=== PATIENT | male | born 1940 | race Caucasian/White ===

== ENCOUNTER 2017-01-06 17:58 | Emergency (ER) | payer MEDICARE, MEDICAID ==
[~2017-01-06] VITALS: Ht 170.2 cm; Wt 119.1 kg
[~2017-01-06 17:58] MED LIST: AZOP0.2S OU; BRIN1OPH OU; CENTTAB PO; CIPR-249 PO; CLOP75TA2 PO; DRIS50002 PO; ECOT81TA5 PO; ESOM1CAP5 PO; FENO43CA PO; HYDR12.55 PO; HYDR25TAB PO; KLOR1TAB77 PO; LOSA50TA20 PO; METF500T13 PO; NEXI40CA PO; OXYC15TA76 PO; SIMV80TA PO; TENO1TAB4 PO; TRAV04OPD OU; TRIC1TAB PO; VALI5TAB PO; ZOFR4TAB3 PO
[2017-01-06] MEDS ORDERED: ASPI81TA85 PO (18:13)
[2017-01-06 18:38] LABS: BASO % 0.3 % (0.0-1.0); EOS # 0.2 10^3/uL (0.0-0.50); EOS % 2.2 % (0.0-3.0); IMMATURE GRANULOCYTE % 0.4 % (0-0); LYMPH # 1.1 10^3/uL (1.5-4.5); LYMPH % 15.6 % (24.0-44.0); MEAN CORPUSCULAR HEMOGLOBIN 29.7 pg (27.0-33.0); MEAN CORPUSCULAR HGB CONC 35.2 g/dl (32.0-36.5); MEAN CORPUSCULAR VOLUME 84.3 fl (80.0-96.0); MONO # 0.6 10^3/uL (0.0-0.8); MONO % 9.5 % (0.0-5.0); NEUTROPHILS # 4.9 10^3/uL (1.8-7.7); PLATELET COUNT, AUTOMATED 173 10^3/uL (150-450); RED CELL DISTRIBUTION WIDTH 13.5 % (11.5-14.5); WHITE BLOOD COUNT 6.7 10^3/uL (4.0-10.0)
[2017-01-06 18:50] LABS: INR 1.08
[2017-01-06 19:00] LABS: ALBUMIN 3.9 GM/DL (3.2-5.2); ALKALINE PHOSPHATASE 49 U/L (45-117); ALT/SGPT 35 U/L (12-78); ANION GAP 9 MEQ/L (8-16); AST/SGOT 22 U/L (7-37); BILIRUBIN,DIRECT 0.2 MG/DL (0.0-0.2); BILIRUBIN,TOTAL 0.5 MG/DL (0.2-1.0); BLOOD UREA NITROGEN 14 MG/DL (7-18); CALCIUM LEVEL 8.8 MG/DL (8.8-10.2); CARBON DIOXIDE LEVEL 25 MEQ/L (21-32); CHLORIDE LEVEL 105 MEQ/L (98-107); CREATININE FOR GFR 1.36 MG/DL (0.70-1.30); GLOMERULAR FILTRATION RATE 54.2 (>42); GLUCOSE, FASTING 117 MG/DL (83-110); POTASSIUM SERUM 3.5 MEQ/L (3.5-5.1); SODIUM LEVEL 139 MEQ/L (136-145); TOTAL PROTEIN 6.9 GM/DL (6.4-8.2)
--- NOTE | 2017-01-06 19:12 | REP ---
REASON FOR EXAM: Chest pain. COMPARISON: 12/13/2016 The technique utilized in obtaining the radiograph has magnified the cardiac silhouette and accentuated the interstitial markings. The superior mediastinal structures are midline. The cardiac silhouette is unremarkable in size, shape, and position. The diaphragmatic surfaces of the lungs are regular, and the costophrenic angles are clear. The pulmonary robertson are clear. The imaged osseous structures are intact. No change from the prior exam. IMPRESSION: There is no acute cardiopulmonary disease. Signed by Max Marie DO 01/06/2017 07:44 P
[2017-01-06] MEDS ORDERED: NS 500 ML IV ONE (19:45)
[2017-01-06] MEDS ORDERED: ISOVUE-370 76% 100ML VIAL (Q9967) As Ordered ONE (19:52)
--- NOTE | 2017-01-06 20:30 | REPUSA ---
CT angiogram of the chest Clinical statement: Chest pain and shortness of breath. Technique: Multiple axial CT images were obtained from the thoracic inlet through the upper abdomen a fter a bolus administration of nonionic intravenous contrast. Coronal and sagittal reconstructions we re also obtained. Comparison: 11/11/2015. Findings: The pulmonary arteries are well-opacified with contrast, with no intraluminal filling defec ts to suggest embolism. The thoracic aorta is unremarkable. Thyroid gland is within normal limits. Th ere is no thoracic lymphadenopathy. There are no pericardial or pleural effusions. The lungs are fannie r. Limited imaging of the upper abdomen is unremarkable. There are no suspicious osseous lesions. Impression: Unremarkable CT examination of the chest. No evidence of pulmonary embolism.
[2017-01-06] MEDS ORDERED: KETOROLAC 30 MG/ML VIAL (J1885) IV ONE (22:45)
[2017-01-06 22:48] VITALS: BP 142/66
--- NOTE | 2017-01-07 07:40 | ECGEPIP ---
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
--- NOTE | 2017-01-07 07:46 | ECGEPIP ---
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
== END 2017-01-06 23:00 | disposition home or self-care (01) ==
LOC: M ED 17:58
DX: R07.89 Other chest pain (principal); I25.10 Atherosclerotic heart disease of native coronary artery without angina pectoris; E11.9 Type 2 diabetes mellitus without complications; I10 Essential (primary) hypertension; E78.5 Hyperlipidemia, unspecified; N40.0 Benign prostatic hyperplasia without lower urinary tract symptoms; Z95.5 Presence of coronary angioplasty implant and graft; Z79.899 Other long term (current) drug therapy; Z79.84 Long term (current) use of oral hypoglycemic drugs; Z79.82 Long term (current) use of aspirin
CPT/HCPCS: 71010; 71275; 80048; 80076; 82550; 82553; 83690; 84443; 84484; 85025; 85610; 93005; 93041; 94760; 96374; 99285; J1885; Q9967

== ENCOUNTER → 2017-10-12 | Outpatient (CLI) | payer MEDICARE, MEDICAID | LOC: M RAD 10:54 | DX: H90.A32 Mixed conductive and sensorineural hearing loss, unilateral, left ear with restricted hearing on the contralateral side (principal); I67.82 Cerebral ischemia | CPT/HCPCS: 70551 ==

== ENCOUNTER → 2020-03-26 | Outpatient (CLI) | payer OTHER, MEDICAID ==
[~2020-03-26] MED LIST changes: +ASPI81TA86 PO; -DRIS50002 PO; +DRIS50003 PO; +FENO1CAP16 PO; -FENO43CA PO; +HYDR-2541 PO; -HYDR25TAB PO; -LOSA50TA20 PO; +LOSA50TA88 PO; +OXYC-1 PO; -OXYC15TA76 PO; -SIMV80TA PO; +SIMV80TA13 PO; +ZOFR4TAB14 PO; -ZOFR4TAB3 PO
[2020-03-26 06:46] LABS: HEMATOCRIT 41.9 % (42.0-52.0); HEMOGLOBIN 14.3 g/dl (13.5-17.5); MEAN CORPUSCULAR HEMOGLOBIN 29.7 pg (27.0-33.0); MEAN CORPUSCULAR HGB CONC 34.1 g/dl (32.0-36.5); MEAN CORPUSCULAR VOLUME 87.1 fl (80.0-96.0); PLATELET COUNT, AUTOMATED 155 10^3/uL (150-450); RED BLOOD COUNT 4.81 10^6/uL (4.30-6.10)
[2020-03-26 07:14] LABS: BILIRUBIN,TOTAL 0.6 MG/DL (0.2-1.0); CALCIUM LEVEL 9.3 MG/DL (8.8-10.2); CHOLESTEROL RISK RATIO 4.151 (<5); CREATININE FOR GFR 1.27 MG/DL (0.70-1.30); GLOMERULAR FILTRATION RATE 58.2 (>42); POTASSIUM SERUM 3.9 MEQ/L (3.5-5.1); TOTAL PROTEIN 6.7 GM/DL (6.4-8.2)
[2020-03-26 07:18] LABS: CREATININE, URINE 72.6 MG/DL; MALB URINE SIEMENS 44.4 MG/L; MAU/CREAT RATIO 61.1 MCG/MG (0.0-30.0)
== END ==
LOC: M LAB 06:02
PROVIDERS: ATTEND Registered Nurse
DX: E55.9 Vitamin D deficiency, unspecified (principal); I10 Essential (primary) hypertension; E11.9 Type 2 diabetes mellitus without complications; Z79.899 Other long term (current) drug therapy

== ENCOUNTER 2020-11-09 19:33 | Inpatient (IN) | payer OTHER, MEDICAID ==
[~2020-11-09] VITALS: Ht 170.2 cm; Wt 118.4 kg
[2020-11-09] MEDS ORDERED: ONDANSETRON 4MG/2ML VIAL IV ONE (20:20)
[2020-11-09] MEDS ORDERED: NS 1,000 ML IV ONE (20:20)
[2020-11-09 20:43] LABS: BASO % 0.3 % (0.0-1.0); EOS # 0.2 10^3/uL (0.0-0.5); EOS % 2.6 % (0.0-3.0); HEMATOCRIT 39.3 % (42.0-52.0); HEMOGLOBIN 13.5 g/dl (13.5-17.5); LYMPH % 16.8 % (24.0-44.0); MEAN CORPUSCULAR HEMOGLOBIN 29.2 pg (27.0-33.0); MEAN CORPUSCULAR HGB CONC 34.4 g/dl (32.0-36.5); MEAN CORPUSCULAR VOLUME 85.1 fl (80.0-96.0); MONO # 0.7 10^3/uL (0.0-0.8); MONO % 10.5 % (2.0-8.0); NEUTROPHILS # 4.3 10^3/uL (1.5-8.5); NEUTROPHILS % 69.3 % (36.0-66.0); PLATELET COUNT, AUTOMATED 167 10^3/uL (150-450); RED BLOOD COUNT 4.62 10^6/uL (4.30-6.10); WHITE BLOOD COUNT 6.2 10^3/uL (4.0-10.0)
[2020-11-09] MEDS ORDERED: ISOVUE-370 76% 100ML VIAL As Ordered ONE (20:51)
[2020-11-09 21:18] LABS: ALBUMIN 3.7 GM/DL (3.2-5.2); ALT/SGPT 31 U/L (12-78); AMYLASE 104 U/L (25-115); BILIRUBIN,DIRECT 0.2 MG/DL (0.0-0.2); BILIRUBIN,TOTAL 0.5 MG/DL (0.2-1.0); CK-MB VALUE MASS 1.4 NG/ML (<3.6); CPK CREATINE PHOSPHOKINASE 73 U/L (39-308); LIPASE 494 U/L (73-393); MB/CK RELATIVE INDEX 1.92 (< OR =4); TOTAL PROTEIN 6.4 GM/DL (6.4-8.2); TROPONIN I < 0.02 NG/ML (< 0.10)
--- NOTE | 2020-11-09 22:37 | REPVR ---
PROCEDURE INFORMATION: Exam: XR Chest Exam date and time: 11/09/2020 10:32 PM Age: 80 years old Clinical indication: Pain; Other: Abdominal; Additional info: Abdomoninal pain TECHNIQUE: Imaging protocol: XR of the chest. Views: 1 view. COMPARISON: [place] PORTABLE CHEST X-RAY 01/06/2017 6:41 PM FINDINGS: Lungs: There are no interval infiltrates. Pleural spaces: Unremarkable. No pleural effusion. No pneumothorax. Heart/Mediastinum: The heart and mediastinum are unchanged. Bones/joints: Unremarkable. Soft tissues: There are moderately generous overlying soft tissues. IMPRESSION: Negative chest. Electronically signed by: Pancho Khan On 11/09/2020 22:37:29 PM
--- NOTE | 2020-11-09 22:37 | REPVR ---
PROCEDURE INFORMATION: Exam: CT Abdomen And Pelvis With Contrast Exam date and time: 11/09/2020 9:06 PM Age: 80 years old Clinical indication: Other: Distended abdomen TECHNIQUE: Imaging protocol: Computed tomography of the abdomen and pelvis with contrast. Radiation optimization: All CT scans at this facility use at least one of these dose optimization techniques: automated exposure control; mA and/or kV adjustment per patient size (includes targeted exams where dose is matched to clinical indication); or iterative reconstruction. Contrast material: ISOVUE 370; Contrast volume: 100 ml; Contrast route: INTRAVENOUS (IV); COMPARISON: CT ABD PELVIS WITH CONTRAST 11/11/2015 2:03 PM FINDINGS: Lungs: Minimal fibro-atelectatic change in the lingula and minimal bibasilar bullous change. Liver: The liver attenuation is 65 Hounsfield units and the spleen is 107 Hounsfield units. Gallbladder and bile ducts: Status post cholecystectomy. Pancreas: Normal. No ductal dilation. Spleen: Normal. No splenomegaly. Adrenal glands: Normal. No mass. Kidneys and ureters: The parenchymal thinning in the upper pole of the right kidney. Stomach and bowel: Mild distention of the stomach with food material and fluid. No colon or small bowel distention. Slight wall thickening of the pre-pyloric antrum with slight surrounding infiltration of fat. Appendix: There are no changes of appendicitis. A normal appendix is not seen. Intraperitoneal space: Unremarkable. No free air. No significant fluid collection. Vasculature: There is minimal atherosclerotic calcification of the abdominal aorta. Lymph nodes: Unremarkable. No enlarged lymph nodes. Urinary bladder: Unremarkable as visualized. Reproductive: Absent prostate. Bones/joints: Lower lumbar facet arthropathy with slight anterolisthesis at L4-L5. Soft tissues: Unremarkable. IMPRESSION: 1. There is mild gastric distention with fluid and food material which may reflect recent ingestion. Gastric atony or relative outlet obstruction are not excluded. There is slight wall thickening of the gastric antrum with adjacent infiltration of fat which may reflect antral gastritis and contraction. 2. Fatty infiltration of the liver. 3. Status post cholecystectomy and probably prostatectomy. 4. No small bowel or colonic distention and no peritoneal ascites. Electronically signed by: Pancho Khan On 11/09/2020 22:36:53 PM
[2020-11-09] MEDS ORDERED: METOCLOPRAMIDE INJ 10MG/2ML VIAL (J2765 PER 1) IV ONE (23:15)
[2020-11-10] MEDS ORDERED: LOSA100T50 PO (00:12)
[2020-11-10] MEDS ORDERED: HYDR-3490 PO (00:12)
[2020-11-10] MEDS ORDERED: ZOCO80TA PO (00:12)
[2020-11-10] MEDS ORDERED: ECOT81TA5 PO (00:12)
[2020-11-10] MEDS ORDERED: POTA20TA6 PO (00:12)
[2020-11-10] MEDS ORDERED: CENT1TAB PO (00:12)
[2020-11-10] MEDS ORDERED: FENO48TA7 PO (00:12)
[2020-11-10] MEDS ORDERED: ERGO500029 PO (00:12)
[2020-11-10] MEDS ORDERED: FISH1000 PO (00:13)
[2020-11-10] MEDS ORDERED: GLUCAGON INJ 1MG VIAL SC PRN (00:15)
[2020-11-10] MEDS ORDERED: HOME MED LIST COMPLETE! XX SCH (00:15)
[2020-11-10] MEDS ORDERED: GLUCOSE 4GM CHEW TABLET PO PRN (00:15)
[2020-11-10] MEDS ORDERED: DEXTROSE 50% 50 ML SYRINGE IV PRN (00:15)
--- NOTE | 2020-11-10 00:17 | HPEPDOC ---
[facility] Medical History & Physical Date of Admission Nov 10, 2020 Date of Service: Nov 10, 2020 Primary Care Physician: Aleyda Valdez Attending Physician: REHAN MISHRA MD History and Physical TIME OF SERVICE: 135am CHIEF COMPLAINT: abdominal pain HISTORY OF PRESENT ILLNESS: , an 80 yr old M, came to the hospital for evaluation of 5/10, constant, non-radiating, left upper abdominal pain that he has had for 3 days. He also had nausea but denied vomiting, denied being constipated and denied worsening of the pain after eating. He was unable to provide an answer when I asked if anything changed with regards to the pain that caused him to come yesterday evening rather than a few days ago. REVIEW OF SYSTEMS: 10-point review of systems negative except as listed in HPI PAST MEDICAL/ SURGICAL HISTORY: NIDDM, COPD, Essential HTN, GERD, Fatty liver, Class 3 obesity BMI 41, Chronic CAD w stent placed in 2015 / DLP, Polyarticular osteoarthritis, Small vessel ischemic disease, Remote hx of Hepatitis A, Hx of non-toxic multinodular goiter, [id number] Hensley score (4+4) Prostate adenocarcinoma s/p robotic assisted radical prostatectomy, Chronic bilateral epididymitis managed with bilateral epididymectomies, Appendectomy, Cholecystectomy FAMILY HISTORY: Father colon cancer, CAD, DM / Mother DM, CAD, breast cancer / Brother heart disease (his brother and sisters who are in the 70s are also alive) SOCIAL HISTORY: He is a former smoker, doesnt drink and doesnt use recreational drugs. He lives with his brother who is in his 70s. Neighbors drive him and his brother to the grocery store and he has someone else (real estate agency principal ??) manages his finances. 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 ALLERGIES: Please see below. HOME MEDICATIONS: Please see below. PHYSICAL EXAMINATION: Vital Signs Date Time Temp Pulse Resp B/P (MAP) Pulse Ox O2 Delivery O2 Flow Rate FiO2 11/09/20 19:45 195/90 (125) 11/09/20 19:45 98.7 75 16 96 Room Air GENERAL APPEARANCE: well-nourished and developed/ appears much younger than his stated age HEENT: EOMI / MMM&P CARDIOVASCULAR: RRR/NMRG / no BLE edema LUNGS: CTAB on RA ABDOMEN: contour convex / bowel sounds are hypoactive / the abdomen is tympanic with percussion of the epigastric region / the abdomen is soft & tender w palpation of the left hypochondriac region / there is no rebound tenderness INTEGUMENT: slighty pale / not flushed or diaphoretics NEUROLOGICAL: speech not dysarthric PSYCHIATRIC: A&O person and place (didnt know date said it was Tuesday te but couldnt name the month or year, he also couldnt name the president and denied know about the Reynolds virus / able to understand and follow all commands LABORATORY DATA: Laboratory Tests 11/09/20 20:29 Immature Granulocyte % (Auto) 0.5, Neutrophils (%) (Auto) 69.3H, Lymphocytes (%) (Auto) 16.8L, Monocytes (%) (Auto) 10.5H, Eosinophils (%) (Auto) 2.6, Basophils (%) (Auto) 0.3, Neutrophils # (Auto) 4.3, Lymphocytes # (Auto) 1.0L, Monocytes # (Auto) 0.7, Eosinophils # (Auto) 0.2, Basophils # (Auto) 0.0, Nucleated Red Blood Cells % (auto) 0.0, Lactic Acid Level 1.7, Total Bilirubin 0.5, Direct Bilirubin 0.2, Aspartate Amino Transf (AST/SGOT) 22, Alanine Aminotransferase (ALT/SGPT) 31, Alkaline Phosphatase 47, Total Creatine Kinase 73, Creatine Kinase MB 1.4, Creatine Kinase MB Relative Index 1.92, Troponin I < 0.02, Total Protein 6.4, Albumin 3.7, Albumin/Globulin Ratio 1.4, Amylase Level 104, Lipase 494H POC Glucose (Misc Panel) 170H, POC Sodium (Misc Panel) 137, POC Potassium (Misc Panel) 3.8, POC Chloride (Misc Panel) 98, POC Total CO2 (Misc Panel) 24.0, POC Blood Urea Nitrogen (Misc Panel 18, POC Ionized Calcium (Misc Panel) 4.6, POC Creatinine (Misc Panel) 1.2, POC Hematocrit (Misc Panel) 39.0 IMAGING: CT abd/pelvis IMPRESSION: 1. There is mild gastric distention with fluid and food material which may reflect recent ingestion. Gastric atony or relative outlet obstruction are not excluded. There is slight wall thickening of the gastric antrum with adjacent infiltration of fat which may reflect antral gastritis and contraction. 2. Fatty infiltration of the liver. 3. Status post cholecystectomy and probably prostatectomy. 4. No small bowel or colonic distention and no peritoneal ascites. Chest xray IMPRESSION: Negative chest. 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 PLAN: 1 Gastric Distention 2/2 gastric atony (DM gastroparesis ??) vs gastric outlet obstruction Plan: admit to medical floor / NPO w IVF / f/u w in the morning /day time team to consider gastric emptying study / Zofran PRN / hold oral meds 2 NIDDM -FSBS/ f/u A1C/ SSI w hypoglycemia protocol Plan: diabetic diet / f/u accuchecks / hypoglycemia protocol / sliding scale insulin / hold oral anti-glycemics / f/u A1C (target A1C for his age with good functional status is approximately 7.1 to 8.0% ) 3 Essential HTN Plan:IV hydralazine prn while oral meds are on hold 4 Chronic CAD / DLP Plan: hold oral meds for now 5 GERD Plan: IV PPI for now 6 Class 3 obesity -BMI 41 -complicates care DVT px w Heparin Dispo: home after at least 2 midnights stay Home Medications Scheduled Aspirin (Ecotrin) 81 Mg Tablet.dr 81 MG PO DAILY Atenolol (Tenormin) 50 Mg Tab, 50 MG PO BID Ergocalciferol (Vitamin D2) (Vitamin D2) 50,000 Units Cap, 50,000 UNITS PO Q2WK Esomeprazole Magnesium (Esomeprazole Magnesium) 40 Mg Cap, 40 MG PO DAILY Fenofibrate Nanocrystallized (Fenofibrate) 48 Mg Tablet, 48 MG PO QHS Hydrochlorothiazide (Hydrochlorothiazide) 25 Mg Tablet, 25 MG PO DAILY Losartan Potassium (Losartan Potassium) 100 Mg Tablet, 100 MG PO DAILY Metformin HCl (Metformin HCl) 500 Mg Tab, 500 MG PO BID Multivit-Min/FA/Lycopen/Lutein (Centrum Silver Tablet) 1 Each Tablet, 1 TAB PO DAILY [place]-3 Fatty Acids/Fish Oil (Fish Oil 1,000 mg Capsule) 1 Each Capsule, 1,000 MG PO DAILY Potassium Chloride (Potassium Chloride) 20 Meq Tab.er.prt, 20 MEQ PO QHS Simvastatin (Zocor) 80 Mg Tablet, 80 MG PO QHS Travoprost (Travatan Z) 50 Drop/2.5 Ml Soln, 1 DROP OU QHS Allergies Coded Allergies: No Known Allergies (Verified , 12/13/16) A-FIB/CHADSVASC A-FIB History Current/History of A-Fib/PAF?: No Current PO Anticoag Therapy: No REHAN MISHRA MD Nov 10, 2020 00:17
[2020-11-10] MEDS ORDERED: ONDANSETRON 4MG/2ML VIAL IV PRN (00:20)
[2020-11-10 00:55] LABS: RSV AMPLIFICATION NEGATIVE (NEGATIVE)
[2020-11-10] MEDS ORDERED: HYDROMORPHONE HCL 0.5 MG/ 0.5 ML SYRINGE (J1170 PER 1) IV PRN (01:40)
[2020-11-10 01:48] LABS: HEMATOCRIT 37.7 % (42.0-52.0); HEMOGLOBIN 13.2 g/dl (13.5-17.5); MEAN CORPUSCULAR HEMOGLOBIN 29.8 pg (27.0-33.0); MEAN CORPUSCULAR VOLUME 85.1 fl (80.0-96.0); PLATELET COUNT, AUTOMATED 155 10^3/uL (150-450); RED BLOOD COUNT 4.43 10^6/uL (4.30-6.10); WHITE BLOOD COUNT 7.1 10^3/uL (4.0-10.0)
[2020-11-10] MEDS: HumaLOG INSULIN (NovoLOG) PER UNIT SC SCH ×5 (01:48→23:55)
[2020-11-10 01:59] VITALS: BP 155/68
[2020-11-10] MEDS: D5W/0.9% SODIUM CHLORIDE 1,000 ML IV SCH ×2 (02:09→15:21)
[2020-11-10 02:28] LABS: BLOOD UREA NITROGEN 18 MG/DL (7-18); CALCIUM LEVEL 8.4 MG/DL (8.8-10.2); CARBON DIOXIDE LEVEL 27 MEQ/L (21-32); CHLORIDE LEVEL 105 MEQ/L (98-107); CREATININE FOR GFR 1.18 MG/DL (0.70-1.30); GLOMERULAR FILTRATION RATE > 60.0 (>35); GLUCOSE, FASTING 164 MG/DL (70-100); POTASSIUM SERUM 3.7 MEQ/L (3.5-5.1); SODIUM LEVEL 140 MEQ/L (136-145)
[2020-11-10] MEDS ORDERED: hydrALAZINE 20MG/ML 1ML VIAL (J0360 PER 20MG) IV PRN (02:35)
[2020-11-10 06:00] VITALS: BP 154/69
[2020-11-10] MEDS ORDERED: LABETALOL 100MG/20ML VIAL IV SCH (06:00)
[2020-11-10] MEDS: HEPARIN SOD (PORCINE) 5000UNITS/ML 1ML VIAL/SYRINGE SC SCH ×3 (06:42→22:18)
[2020-11-10 07:05] LABS: HEMOGLOBIN A1c 6.7 %
[2020-11-10] MEDS ORDERED: PANTOPRAZOLE 40MG VIAL (C9113 PER 1) IV SCH (09:00)
[2020-11-10] MEDS: METOCLOPRAMIDE INJ 10MG/2ML VIAL (J2765 PER 1) IV SCH ×3 (11:00→22:18)
[2020-11-10] MEDS: LOSARTAN 50MG TABLET PO SCH (12:03)
[2020-11-10] MEDS: PANTOPRAZOLE 40MG TAB (PROTONIX) PO SCH (12:04)
[2020-11-10] MEDS: ASPIRIN 81MG ENTERIC TABLET PO SCH (12:04)
[2020-11-10] MEDS: atenoloL 50 MG TAB PO SCH ×2 (12:04→22:16)
[2020-11-10 14:35] VITALS: BP 138/66
--- NOTE | 2020-11-10 14:55 | IPNPDOC ---
Text Note Date of Service The patient was seen on 11/10/20. NOTE SUBJECTIVE: -No acute events OBJECTIVE: GENERAL APPEARANCE: well-nourished and developed, NAD HEENT: NCAT, MMM, EOMI CARDIOVASCULAR: RRR, no m/r/g LUNGS: CTAB on RA ABDOMEN: Obese, hypoactive sounds, nontender abdomen NEUROLOGICAL: speech not dysarthric, otherwise nonfocal LABORATORY DATA: WBC 7.1 Hgb 13.2 platelets 155 Na 140 K 3.7 Cr 1.18 a1c 6.7 lipase 494 IMAGING: CT abd/pelvis IMPRESSION: 1. There is mild gastric distention with fluid and food material which may reflect recent ingestion. Gastric atony or relative outlet obstruction are not excluded. There is slight wall thickening of the gastric antrum with adjacent infiltration of fat which may reflect antral gastritis and contraction. 2. Fatty infiltration of the liver. 3. Status post cholecystectomy and probably prostatectomy. 4. No small bowel or colonic distention and no peritoneal ascites. Chest xray IMPRESSION: Negative chest. 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 PLAN: Abdominal pain: 2/2 gastric atony (DM gastroparesis ??) vs gastric outlet obstruction -NPO except for meds w IVF -f/u w , likely to consider gastric emptying study -Zofran PRN 2 NIDDM -FSBS Q6H -Q6H SSI -hypoglycemia protocol -hold oral anti-glycemics -a1c was 6.7 (target A1C for his age with good functional status is approximately 7.1 to 8.0% ) 3 Essential HTN -continue home ARB, thiazide diuretic and BB 4 Chronic CAD / DLP -continue home ASA and fenofibrate 5 GERD -protonix PO 6 Class 3 obesity -BMI 41 -complicates care DVT px w Heparin Dispo: home after at least 2 midnights stay VS,Fishbone, I+O VS, Fishbone, I+O Laboratory Tests 11/09/20 20:29 11/10/20 01:41 Vital Signs Date Time Temp Pulse Resp B/P (MAP) Pulse Ox O2 Delivery O2 Flow Rate FiO2 11/10/20 06:00 98.3 75 20 154/69 (97) 98 Room Air I&O- Last 24 Hours up to 6 AM 11/10/20 06:00 Intake Total 240 ml Output Total 400 ml Balance -160 ml JEFFERY SANDERSON MD Nov 10, 2020 08:46
--- NOTE | 2020-11-10 17:29 | CR ---
CONSULTATION DATE: 11/10/2020 REASON FOR CONSULTATION: Abdominal distention. BRIEF HISTORY OF PRESENT ILLNESS: The patient is an 80n -year-old male who has had some left upper quadrant pain and abdominal discomfort for the last 3 days, worse after eating and essentially has been taking less p.o. intake but has not had any weight loss issues. He has had no fevers, no chills, no diarrhea issues, no blood per rectum. PAST MEDICAL HISTORY: The patient's past medical history is significant for: 1. History of diabetes mellitus. 2. Chronic obstructive pulmonary disease. 3. Hypertension. 4. Gastroesophageal reflux disease. 5. Fatty liver. 6. Obesity. 7. Coronary artery disease. 8. Dyslipidemia. 9. Polyarticular arthritis. 10. Hepatitis A. 11. Multinodular goiter. 12. Prostate cancer. 13. Epididymitis. PAST SURGICAL HISTORY: The patient's past surgical history is significant for: 1. Appendectomy. 2. Cholecystectomy. PHYSICAL EXAMINATION: GENERAL APPEARANCE: An 80-year-old male who looks stated age. HEENT: Unremarkable. LUNGS: Clear anteriorly. HEART: Regular. ABDOMEN: Softly distended, tympanitic throughout the upper abdomen with no guarding, with no rebound, no peritoneal signs are appreciated. EXTREMITIES: Warm and well perfused. IMAGING STUDIES: His CAT scan reveals a relatively distended stomach with a great deal of food still left within his stomach. There is some minimal inflammation at the pylorus and maybe the pulse bulbar or in the bulb of the duodenum, but I am not seeing any masses or significant inflammation in this area, maybe some mucosal thickening. The rest of his small bowel is nicely decompressed. No other significant abnormality is appreciated. IMPRESSION AND PLAN: The patient has some delayed gastric emptying issues of undermined etiology. I would not call it specifically gastric outlet obstruction, however at this point I would keep him n.p.o. and start him on some Reglan, possibly add a little bit of Carafate and increase his proton pump inhibitors but if he seems to be stable, then restarting some clear liquids is reasonable and then to get a better assessment of the stomach itself, an upper GI or an upper endoscopy may be warranted, however an upper endoscopy with all that food in the stomach could be quite problematic from an anesthesia standpoint, thus I would rather start with an upper GI first if he does well with clear liquids. NG tube insertion is warranted if he develops nausea, vomiting, or increasing abdominal pain.
[2020-11-10] MEDS: SUCRALFATE 1 GM TAB PO SCH ×2 (18:10→22:17)
[2020-11-10 22:00] VITALS: BP 138/65
[2020-11-10] MEDS: LATANOPROST 0.005% OPHTH SOLN 2.5 ML OU SCH (22:16)
[2020-11-10] MEDS: SIMVASTATIN 40 MG TAB PO SCH (22:17)
[2020-11-10] MEDS: FENOFIBRATE 48MG TABLET (TRICOR) PO SCH (22:17)
[2020-11-10] MEDS: POTASSIUM CHLORIDE 10MEQ SR TABLET PO SCH (22:17)
[2020-11-11] MEDS: METOCLOPRAMIDE INJ 10MG/2ML VIAL (J2765 PER 1) IV SCH ×4 (05:54→21:54)
[2020-11-11] MEDS: HEPARIN SOD (PORCINE) 5000UNITS/ML 1ML VIAL/SYRINGE SC SCH ×3 (05:55→21:56)
[2020-11-11] MEDS: HumaLOG INSULIN (NovoLOG) PER UNIT SC SCH ×4 (05:56→21:00)
[2020-11-11 06:00] VITALS: BP 152/70
[2020-11-11 06:50] LABS: HEMATOCRIT 35.4 % (42.0-52.0); HEMOGLOBIN 12.2 g/dl (13.5-17.5); MEAN CORPUSCULAR HGB CONC 34.5 g/dl (32.0-36.5); PLATELET COUNT, AUTOMATED 145 10^3/uL (150-450); RED BLOOD COUNT 4.07 10^6/uL (4.30-6.10); WHITE BLOOD COUNT 4.4 10^3/uL (4.0-10.0)
[2020-11-11 07:19] LABS: BLOOD UREA NITROGEN 8 MG/DL (7-18); CALCIUM LEVEL 7.9 MG/DL (8.8-10.2); CARBON DIOXIDE LEVEL 28 MEQ/L (21-32); CHLORIDE LEVEL 109 MEQ/L (98-107); CREATININE FOR GFR 1.01 MG/DL (0.70-1.30); GLOMERULAR FILTRATION RATE > 60.0 (>35); GLUCOSE, FASTING 131 MG/DL (70-100); POTASSIUM SERUM 3.8 MEQ/L (3.5-5.1); SODIUM LEVEL 142 MEQ/L (136-145)
[2020-11-11] MEDS: D5W/0.9% SODIUM CHLORIDE 1,000 ML IV SCH ×2 (08:56→23:48)
[2020-11-11] MEDS: PANTOPRAZOLE 40MG TAB (PROTONIX) PO SCH (08:57)
[2020-11-11] MEDS: SUCRALFATE 1 GM TAB PO SCH ×4 (08:57→21:54)
[2020-11-11] MEDS: ASPIRIN 81MG ENTERIC TABLET PO SCH (08:57)
[2020-11-11] MEDS: LOSARTAN 50MG TABLET PO SCH (08:58)
[2020-11-11] MEDS: atenoloL 50 MG TAB PO SCH ×2 (08:59→21:55)
--- NOTE | 2020-11-11 10:57 | IPNPDOC ---
Text Note Date of Service The patient was seen on 11/11/20. NOTE General surgery. Dr Garcia The patient is an 80-year-old male admitted with abdominal distention, CT scan indicated distended stomach with a large amount of food still left in the stomach. The patient was evaluated for delayed gastric emptying issues. The patient was started on Reglan, Carafate and PPI was increased. Patient has been tried on clear liquids. This morning, the patient states he is tolerating clear liquids. He states abdominal distention is improved. He denies abdominal pain. Denies nausea or vomiting. States he has occasional flatus, no BM since admission. Afebrile VSS Awake and alert sitting up in bed eating breakfast MMM Lungs clear to auscultation S1-S2 regular rate rhythm Abdomen is obese, soft, mildly distended but nontender, no guarding or grimacing. No edema WBC 4.4, hemoglobin 12.2 Assessment/plan Delayed gastric emptying issues of undetermined etiology. The patient is reviewed and examined as per Dr Garcia. Patient reports he is tolerating clear liquids. States abdominal pain and distention are improved this morning. Continue with Reglan, Carafate, PPI. Continue with clear liquids. Plan is for upper GI with SBFT to further evaluate, further recommendations pending review of imaging as per Dr Garcia VS,Elsy, I+O VS, Elsy, I+O Laboratory Tests 11/11/20 05:53 Vital Signs Date Time Temp Pulse Resp B/P (MAP) Pulse Ox O2 Delivery O2 Flow Rate FiO2 11/11/20 08:59 69 148/75 11/11/20 06:00 98.0 16 97 Room Air I&O- Last 24 Hours up to 6 AM 11/11/20 05:59 Intake Total 1610 ml Output Total 2325 ml Balance -[address] Marti Nov 11, 2020 10:57
--- NOTE | 2020-11-11 12:01 | IPNPDOC ---
Text Note Date of Service The patient was seen on 11/11/20. NOTE SUBJECTIVE: -No acute events -Tolerated clears OBJECTIVE: GENERAL APPEARANCE: well-nourished and developed, NAD HEENT: NCAT, MMM, EOMI CARDIOVASCULAR: RRR, no m/r/g LUNGS: CTAB on RA ABDOMEN: Obese, hypoactive sounds, nontender abdomen NEUROLOGICAL: speech not dysarthric, otherwise nonfocal LABORATORY DATA: reviewed IMAGING: CT abd/pelvis IMPRESSION: 1. There is mild gastric distention with fluid and food material which may reflect recent ingestion. Gastric atony or relative outlet obstruction are not excluded. There is slight wall thickening of the gastric antrum with adjacent infiltration of fat which may reflect antral gastritis and contraction. 2. Fatty infiltration of the liver. 3. Status post cholecystectomy and probably prostatectomy. 4. No small bowel or colonic distention and no peritoneal ascites. Chest xray IMPRESSION: Negative chest. 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 PLAN: Abdominal pain: 2/2 gastric atony (DM gastroparesis ??) vs gastric outlet obstruction -clear liquid diet -f/u w , pending UGI series -Zofran PRN -was started on reglan 2 NIDDM -FSBS AC/HS -ACHS SSI -hypoglycemia protocol -hold oral anti-glycemics -a1c was 6.7 (target A1C for his age with good functional status is approximately 7.1 to 8.0% ) 3 Essential HTN -continue home ARB, thiazide diuretic and BB 4 Chronic CAD / DLP -continue home ASA and fenofibrate 5 GERD -protonix PO 6 Class 3 obesity -BMI 41 -complicates care DVT px w Heparin Dispo: home after at least 2 midnights stay VS,Fishbone, I+O VS, Fishbone, I+O Laboratory Tests 11/11/20 05:53 Vital Signs Date Time Temp Pulse Resp B/P (MAP) Pulse Ox O2 Delivery O2 Flow Rate FiO2 11/11/20 06:00 98.0 66 16 152/70 (97) 97 Room Air I&O- Last 24 Hours up to 6 AM 11/11/20 06:00 Intake Total 1730 ml Output Total 2150 ml Balance -420 ml JEFFERY SANDERSON MD Nov 11, 2020 08:19
--- NOTE | 2020-11-11 13:45 | ECGEPIP ---
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
[2020-11-11 14:00] VITALS: BP 150/74
[2020-11-11] MEDS: POTASSIUM CHLORIDE 10MEQ SR TABLET PO SCH (21:54)
[2020-11-11] MEDS: FENOFIBRATE 48MG TABLET (TRICOR) PO SCH (21:54)
[2020-11-11] MEDS: SIMVASTATIN 40 MG TAB PO SCH (21:54)
[2020-11-11] MEDS: LATANOPROST 0.005% OPHTH SOLN 2.5 ML OU SCH (21:56)
[2020-11-11 22:00] VITALS: BP 147/78
[2020-11-12] MEDS: HEPARIN SOD (PORCINE) 5000UNITS/ML 1ML VIAL/SYRINGE SC SCH ×3 (04:56→21:22)
[2020-11-12] MEDS: METOCLOPRAMIDE INJ 10MG/2ML VIAL (J2765 PER 1) IV SCH ×4 (04:56→21:22)
[2020-11-12 06:22] VITALS: BP 142/77
[2020-11-12] MEDS: HumaLOG INSULIN (NovoLOG) PER UNIT SC SCH ×4 (07:30→20:41)
[2020-11-12] MEDS: SUCRALFATE 1 GM TAB PO SCH ×4 (07:30→21:22)
--- NOTE | 2020-11-12 08:55 | IPNPDOC ---
Text Note Date of Service The patient was seen on 11/12/20. NOTE General surgery. Dr Garcia The patient is an 80-year-old male admitted with abdominal distention, CT scan indicated distended stomach with a large amount of food still left in the stomach. The patient was evaluated for delayed gastric emptying issues. The patient was started on Reglan, Carafate and PPI was increased. Patient has been tried on clear liquids. This morning, the patient states he is not having abdominal pain or distention. Denies nausea or vomiting. Reports flatus, no BM recorded but the patient states he did have one. Afebrile VSS Awake and alert sitting up in bed eating breakfast MMM Lungs clear to auscultation S1-S2 regular rate rhythm Abdomen is obese, soft, mildly distended but nontender, no guarding or grimacing. No edema No new labs Assessment/plan Delayed gastric emptying issues of undetermined etiology. The patient is reviewed as per Dr Garcia. Continue with Reglan, Carafate, PPI. Currently n.p.o. for upper GI with SBFT this a.m., further recommendations pending review of imaging as per Dr Garcia VS,Elsy, I+O VS, Elsy, I+O Vital Signs Date Time Temp Pulse Resp B/P (MAP) Pulse Ox O2 Delivery O2 Flow Rate FiO2 11/12/20 06:22 97.6 61 14 142/77 (98) 97 Room Air I&O- Last 24 Hours up to 6 AM 11/12/20 05:59 Intake Total 3000 ml Output Total 1450 ml Balance [address] Marti Nov 12, 2020 08:55
[2020-11-12] MEDS: atenoloL 50 MG TAB PO SCH ×2 (09:00→21:23)
[2020-11-12] MEDS ORDERED: E-Z-GAS II EFFERVESCENT PACKET (SODIUM BICARB./CITRIC ACID/SIMETHICONE) As Ordered ONE (12:04)
[2020-11-12] MEDS ORDERED: E-Z-PAQUE 96% w/w SUSP 176GM BTL As Ordered ONE (12:04)
[2020-11-12] MEDS ORDERED: E-Z-HD 98% w/w 340GM SUSP BTL As Ordered ONE (12:04)
--- NOTE | 2020-11-12 13:41 | IPNPDOC ---
Text Note Date of Service The patient was seen on 11/12/20. NOTE SUBJECTIVE: -No acute events, pending UGI series OBJECTIVE: GENERAL APPEARANCE: well-nourished and developed, NAD HEENT: NCAT, MMM, EOMI CARDIOVASCULAR: RRR, no m/r/g LUNGS: CTAB on RA ABDOMEN: Obese, hypoactive sounds, nontender abdomen NEUROLOGICAL: speech not dysarthric, otherwise nonfocal LABORATORY DATA: reviewed IMAGING: CT abd/pelvis IMPRESSION: 1. There is mild gastric distention with fluid and food material which may reflect recent ingestion. Gastric atony or relative outlet obstruction are not excluded. There is slight wall thickening of the gastric antrum with adjacent infiltration of fat which may reflect antral gastritis and contraction. 2. Fatty infiltration of the liver. 3. Status post cholecystectomy and probably prostatectomy. 4. No small bowel or colonic distention and no peritoneal ascites. Chest xray IMPRESSION: Negative chest. 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 PLAN: Abdominal pain: 2/2 gastric atony (DM gastroparesis ??) vs gastric outlet obstruction -NPO for UGI series, unfortunately it was not done yesterday because he had breakfast -f/u w , pending UGI series -Zofran PRN -continue reglan 2 NIDDM -FSBS AC/HS -ACHS SSI -hypoglycemia protocol -hold oral anti-glycemics -a1c was 6.7 (target A1C for his age with good functional status is approximately 7.1 to 8.0% ) 3 Essential HTN -continue home ARB, thiazide diuretic and BB 4 Chronic CAD / DLP -continue home ASA and fenofibrate 5 GERD -protonix PO 6 Class 3 obesity -BMI 41 -complicates care DVT px w Heparin Dispo: home after at least 2 midnights stay VS,Fishbone, I+O VS, Fishbone, I+O Vital Signs Date Time Temp Pulse Resp B/P (MAP) Pulse Ox O2 Delivery O2 Flow Rate FiO2 11/12/20 06:22 97.6 61 14 142/77 (98) 97 Room Air I&O- Last 24 Hours up to 6 AM 11/12/20 06:00 Intake Total 2640 ml Output Total 1450 ml Balance 1190 ml JEFFERY SANDERSON MD Nov 12, 2020 09:19
[2020-11-12 15:46] VITALS: BP 151/87
[2020-11-12] MEDS: ASPIRIN 81MG ENTERIC TABLET PO SCH (15:55)
[2020-11-12] MEDS: PANTOPRAZOLE 40MG TAB (PROTONIX) PO SCH (15:55)
[2020-11-12] MEDS: LOSARTAN 50MG TABLET PO SCH (15:56)
--- NOTE | 2020-11-12 16:00 | REP ---
INDICATION: c/f gastric outlet obstruction. COMPARISON: None. TECHNIQUE: The procedure was performed under the direct supervision of Dr. Bella. The images were reviewed with Dr. Bella. Liquid barium and gas producing crystals were given in the erect position as well as liquid barium in the prone oblique position in order to perform a double contrast upper GI examination. Additionally liquid barium was given at the end of the examination in order to perform a small bowel follow through. A combination od fluoroscopy, spot films and last image hold technology was utilized, 3.1 minutes of fluoro time was utilized for this procedure. FINDINGS: The airport control operator film shows no organomegaly or pathological masses. The intestinal gas pattern is non-specific. The oral and pharyngeal stages of deglutition are unremarkable. Esophageal transport is prompt and efficient and there is no esophagitis, stricture, mucosal ring or hiatal hernia. The stomach downs are normally outlined. The rugal folds are smooth and regular. There is no gastritis neoplasm or ulcer disease. In the post bulbar duodenum there are thickened folds which may represent duodenitis. There is no maco ulcer identified. There is a descending duodenal diverticulum identified. The visualized portion of the proximal small bowel appears normal in course and caliber. The barium column was followed through the small bowel to the level of the terminal ileum. Small bowel transit time is approximately 2 hours and 20 minutes. During fluoroscopy gentle palpation shows all loops are freely movable and pliable. There are no fixed or angulated loops. The small bowel mucosal pattern is normal in course and caliber. There is no transition to suggest a partial small-bowel obstruction. Spot filming of the terminal ileum shows it to be unremarkable. IMPRESSION: 1. There are thickened folds in the post bulbar duodenum which may represent duodenitis. There is no maco ulcer identified. 2. There is a descending duodenal diverticulum. <Electronically signed by Keven Donovan > 11/12/20 1546 <Electronically signed by Wang Bella > 11/12/20 [id number]
[2020-11-12] MEDS: POTASSIUM CHLORIDE 10MEQ SR TABLET PO SCH (21:22)
[2020-11-12] MEDS: SIMVASTATIN 40 MG TAB PO SCH (21:22)
[2020-11-12] MEDS: FENOFIBRATE 48MG TABLET (TRICOR) PO SCH (21:22)
[2020-11-12] MEDS: LATANOPROST 0.005% OPHTH SOLN 2.5 ML OU SCH (21:23)
[2020-11-12 22:00] VITALS: BP 135/66
[2020-11-13] MEDS: METOCLOPRAMIDE INJ 10MG/2ML VIAL (J2765 PER 1) IV SCH ×2 (03:46→09:24)
[2020-11-13] MEDS: HEPARIN SOD (PORCINE) 5000UNITS/ML 1ML VIAL/SYRINGE SC SCH (05:37)
[2020-11-13 06:00] VITALS: BP 146/76
[2020-11-13] MEDS ORDERED: SUCR1TA PO (08:03)
[2020-11-13] MEDS ORDERED: REGL10TA6 PO (08:03)
[2020-11-13] MEDS ORDERED: PROT1TAB2 PO (08:24)
--- NOTE | 2020-11-13 08:43 | IPNPDOC ---
Text Note Date of Service The patient was seen on 11/13/20. NOTE General surgery. Dr Garcia The patient is an 80-year-old male admitted with abdominal distention, CT scan indicated distended stomach with a large amount of food still left in the stomach. The patient was evaluated for delayed gastric emptying issues. The patient was started on Reglan, Carafate and PPI was increased. Currently tolerating low residue diet. This morning, the patient is resting in bed and denies any pain or distention. Denies nausea or vomiting. Reports flatus and BM last evening and this morning. Tolerating low residue diet. Afebrile VSS Awake and alert, no acute distress MMM Lungs clear to auscultation S1-S2 regular rate rhythm Abdomen is obese, soft, nondistended, nontender. No edema No new labs Assessment/plan Delayed gastric emptying issues of undetermined etiology. The patient is reviewed as per Dr Garcia. Continue with Reglan, Carafate, PPI. Upper GI with small bowel follow-through 11/12/2020 indicated possible duodenitis, no ulcer identified otherwise unremarkable. Tolerating low residue diet. Reviewed with brendon Almeida for discharge today from surgical standpoint, outpatient follow-up with gastroenterology recommended. VS,Fishbone, I+O VS, Fishbone, I+O Vital Signs Date Time Temp Pulse Resp B/P (MAP) Pulse Ox O2 Delivery O2 Flow Rate FiO2 11/13/20 06:00 98.2 62 17 146/76 (99) 97 Room Air I&O- Last 24 Hours up to 6 AM 11/13/20 06:00 Intake Total 1500 ml Output Total 900 ml Balance [address] Nov 13, 2020 08:43
[2020-11-13] MEDS: SUCRALFATE 1 GM TAB PO SCH ×2 (09:20→12:23)
[2020-11-13] MEDS: HumaLOG INSULIN (NovoLOG) PER UNIT SC SCH ×2 (09:21→12:06)
[2020-11-13] MEDS: ASPIRIN 81MG ENTERIC TABLET PO SCH (09:22)
[2020-11-13] MEDS: PANTOPRAZOLE 40MG TAB (PROTONIX) PO SCH (09:23)
[2020-11-13] MEDS: LOSARTAN 50MG TABLET PO SCH (09:23)
[2020-11-13 09:24] VITALS: BP 144/73
[2020-11-13] MEDS: atenoloL 50 MG TAB PO SCH (09:24)
--- NOTE | 2020-11-13 11:29 | DS.PDOC ---
Discharge Summary General Date of Admission Nov 09, 2020 at 19:34 Date of Discharge 11/13/2020 Attending Physician: JEFFERY SANDERSON MD Discharge Summary PROCEDURES PERFORMED DURING STAY: None ADMITTING DIAGNOSES: Abdominal pain DISCHARGE DIAGNOSES: Duodenitis NIDDM COPD Essential HTN GERD Fatty liver Class 3 obesity BMI 41 Chronic CAD w stent placed in 2016 DLP Polyarticular osteoarthritis Small vessel ischemic disease Hx of non-toxic multinodular goiter History of [id number] Latoya score (4+4) Prostate adenocarcinoma s/p robotic assisted radical prostatectomy Chronic bilateral epididymitis managed with bilateral epididymectomies COMPLICATIONS/CHIEF COMPLAINT: Gastric Outle Obstruction. HISTORY OF PRESENT ILLNESS: , an 80 yr old M with NIDDM, obesity and GERD who presented to the hospital for evaluation of 5/10, constant, non-radiating, left upper abdominal pain that he had for 3 days. He also had nausea but denied vomiting, denied being constipated and denied worsening of the pain after eating. HOSPITAL COURSE: On evaluation, his CT showed a distended stomach with food, minimal inflammation at the pylorus without any masses or significant inflammation with the rest of his small bowel decompressed. There was c/f delayed gastric emptying vs. gastric outlet obstruction and surgery was consulted. He was started on reglan, carafate, and started on clear liquid diet with resolution of pain and tolerated the diet very well. He had a gastric emptying study that showed no obstructive pathology and perhaps duodenitis. He tolerated a soft diet and he is now being discharged home on PPI, reglan and carafate with close PCP follow up. DISCHARGE MEDICATIONS: Please see below. ALLERGIES: Please see below. PHYSICAL EXAMINATION ON DISCHARGE: VITAL SIGNS: Please see below. OBJECTIVE: GENERAL APPEARANCE: well-nourished and developed, NAD HEENT: NCAT, MMM, EOMI CARDIOVASCULAR: RRR, no m/r/g LUNGS: CTAB on RA ABDOMEN: Obese, normoactive sounds, nontender abdomen, soft NEUROLOGICAL: speech not dysarthric, otherwise nonfocal LABORATORY DATA: Please see below IMAGING: CT abd/pelvis IMPRESSION: 1. There is mild gastric distention with fluid and food material which may reflect recent ingestion. Gastric atony or relative outlet obstruction are not excluded. There is slight wall thickening of the gastric antrum with adjacent infiltration of fat which may reflect antral gastritis and contraction. 2. Fatty infiltration of the liver. 3. Status post cholecystectomy and probably prostatectomy. 4. No small bowel or colonic d istention and no peritoneal ascites. Chest xray IMPRESSION: Negative chest. Upper GI series: The procedure was performed under the direct supervision of Dr. Bella. The images were reviewed with Dr. Bella. Liquid barium and gas producing crystals were given in the erect position as well as liquid barium in the prone oblique position in order to perform a double contrast upper GI examination. Additionally liquid barium was given at the end of the examination in order to perform a small bowel follow through. A combination od fluoroscopy, spot films and last image hold technology was utilized, 3.1 minutes of fluoro time was utilized for this procedure. FINDINGS: The childbirth educator film shows no organomegaly or pathological masses. The intestinal gas pattern is non-specific. The oral and pharyngeal stages of deglutition are unremarkable. Esophageal transport is prompt and efficient and there is no esophagitis, stricture, mucosal ring or hiatal hernia. The stomach downs are normally outlined. The rugal folds are smooth and regular. There is no gastritis neoplasm or ulcer disease. In the post bulbar duodenum there are thickened folds which may represent duodenitis. There is no maco ulcer identified. There is a descending duodenal diverticulum identified. The visualized portion of the proximal small bowel appears normal in course and caliber. The barium column was followed through the small bowel to the level of the terminal ileum. Small bowel transit time is approximately 2 hours and 20 minutes. During fluoroscopy gentle palpation shows all loops are freely movable and pliable. There are no fixed or angulated loops. The small bowel mucosal pattern is normal in course and caliber. There is no transition to suggest a partial small-bowel obstruction. Spot filming of the terminal ileum shows it to be unremarkable. IMPRESSION: 1. There are thickened folds in the post bulbar duodenum which may represent duodenitis. There is no maco ulcer identified. 2. There is a descending duodenal diverticulum. PROGNOSIS: Good ACTIVITY: As tolerated DIET: consistent carb diet, 2g sodium DISCHARGE PLAN: Home with BID PPI, carafate ACHS, and reglan TID with close PCP follow up within 7d DISPOSITION: Home, with services DISCHARGE INSTRUCTIONS: Home with BID PPI, carafate ACHS, and reglan TID with close PCP follow up within 7d ITEMS TO FOLLOWUP ON ON OUTPATIENT: Duodenitis DISCHARGE CONDITION: Stable TIME SPENT ON DISCHARGE: 40 minutes. Vital Signs/I&Os Vital Signs Date Time Temp Pulse Resp B/P (MAP) Pulse Ox O2 Delivery O2 Flow Rate FiO2 11/13/20 06:00 98.2 62 17 146/76 (99) 97 Room Air I&O- Last 24 Hours up to 6 AM 11/13/20 06:00 Intake Total 1500 ml Output Total 900 ml Balance 600 ml Laboratory Data Labs 24H Laboratory Tests 2 11/12/20 11:23: Bedside Glucose (Misc Panel) 141H 11/12/20 16:35: Bedside Glucose (Misc Panel) 180H 11/12/20 20:19: Bedside Glucose (Misc Panel) 91 FSBS Laboratory Tests Test 11/12/20 11:23 11/12/20 16:35 11/12/20 20:19 Range/Units Bedside Glucose (Misc Panel) 141 180 91 83-110 MG/DL Discharge Medications Scheduled Aspirin (Ecotrin) 81 Mg Tablet.dr, 81 MG PO DAILY, (Reported) Atenolol (Tenormin) 50 Mg Tab, 50 MG PO BID, (Reported) Ergocalciferol (Vitamin D2) (Vitamin D2) 50,000 Units Cap, 50,000 UNITS PO Q2WK, (Reported) Esomeprazole Magnesium (Esomeprazole Magnesium) 40 Mg Cap, 40 MG PO DAILY, (Reported) Fenofibrate Nanocrystallized (Fenofibrate) 48 Mg Tablet, 48 MG PO QHS, (Reported) Hydrochlorothiazide (Hydrochlorothiazide) 25 Mg Tablet, 25 MG PO DAILY, (R eported) Losartan Potassium (Losartan Potassium) 100 Mg Tablet, 100 MG PO DAILY, (Reported) Metformin HCl (Metformin HCl) 500 Mg Tab, 500 MG PO BID, (Reported) Metoclopramide HCl (Reglan) 10 Mg Tablet, 1 TAB PO TID before food and bedtime Multivit-Min/FA/Lycopen/Lutein (Centrum Silver Tablet) 1 Each Tablet, 1 TAB PO DAILY, (Reported) [place]-3 Fatty Acids/Fish Oil (Fish Oil 1,000 mg Capsule) 1 Each Capsule, 1,000 MG PO DAILY, (Reported) Pantoprazole Sodium (Protonix) 40 Mg Tablet.dr, 1 TAB PO BID Potassium Chloride (Potassium Chloride) 20 Meq Tab.er.prt, 20 MEQ PO QHS, (Reported) Simvastatin (Zocor) 80 Mg Tablet, 80 MG PO QHS, (Reported) Sucralfate (Sucralfate) 1 Gm Tablet, 1 GM PO ACHS Travoprost (Travatan Z) 50 Drop/2.5 Ml Soln, 1 DROP OU QHS, (Reported) Allergies Coded Allergies: No Known Allergies (Verified , 12/13/16) JEFFERY SANDERSON MD Nov 13, 2020 08:25
== END 2020-11-13 13:55 | disposition home health service (06) | DRG 392 ==
LOC: M ED 19:33 → M ED INP 19:34 → M MSPAV 11-10 02:04
PROVIDERS: ADMIT Internal Medicine; ATTEND Internal Medicine
DX: K29.80 Duodenitis without bleeding (principal); Z68.41 Body mass index [BMI] 40.0-44.9, adult; J44.9 Chronic obstructive pulmonary disease, unspecified; I10 Essential (primary) hypertension; E11.9 Type 2 diabetes mellitus without complications; K21.9 Gastro-esophageal reflux disease without esophagitis; K76.0 Fatty (change of) liver, not elsewhere classified; E66.9 Obesity, unspecified; I25.10 Atherosclerotic heart disease of native coronary artery without angina pectoris; K30 Functional dyspepsia; Z95.5 Presence of coronary angioplasty implant and graft; E78.5 Hyperlipidemia, unspecified; M15.9 Polyosteoarthritis, unspecified; Z85.46 Personal history of malignant neoplasm of prostate; Z90.49 Acquired absence of other specified parts of digestive tract; Z87.891 Personal history of nicotine dependence; Z79.82 Long term (current) use of aspirin; Z79.84 Long term (current) use of oral hypoglycemic drugs; Z79.899 Other long term (current) drug therapy

== ENCOUNTER 2020-12-16 07:33 | Inpatient (IN) | payer OTHER, MEDICAID ==
[~2020-12-16] VITALS: Ht 170.2 cm; Wt 115.1 kg
[~2020-12-16 07:33] MED LIST changes: +CENT1TAB PO; +ERGO500029 PO; +FENO48TA8 PO; +FISH1000 PO; +HYDR-3490 PO; +LOSA100T50 PO; +POTA20TA6 PO; +PROT1TAB2 PO; +REGL10TA6 PO; +SUCR1TA PO; +ZOCO80TA PO
[2020-12-16] MEDS ORDERED: NS 1,000 ML IV SCH (07:45)
[2020-12-16] MEDS ORDERED: NS 500 ML IV ONE (07:50)
--- NOTE | 2020-12-16 08:29 | REP ---
INDICATION: DYSPNEA/COUGH. COMPARISON: 11/09/2020 also portable TECHNIQUE: Portable FINDINGS: The technique utilized in obtaining the radiograph has magnified the cardiac silhouette and accentuated the interstitial markings. The superior mediastinal structures are midline. The cardiac silhouette is unremarkable in size, shape, and position. The diaphragmatic surfaces of the lungs are regular, and the costophrenic angles are clear. The pulmonary robertson are clear. The imaged osseous structures are intact. IMPRESSION: There is no acute cardiopulmonary disease. <Electronically signed by Max Marie > 12/16/20 [id number]
[2020-12-16 08:37] LABS: BASO % 0.3 % (0.0-1.0); EOS % 0.2 % (0.0-3.0); HEMATOCRIT 32.1 % (42.0-52.0); LYMPH # 0.9 10^3/uL (1.5-5.0); LYMPH % 9.7 % (24.0-44.0); MEAN CORPUSCULAR HEMOGLOBIN 29.3 pg (27.0-33.0); MEAN CORPUSCULAR HGB CONC 34.3 g/dl (32.0-36.5); MEAN CORPUSCULAR VOLUME 85.6 fl (80.0-96.0); MONO # 0.8 10^3/uL (0.0-0.8); MONO % 8.4 % (2.0-8.0); NEUTROPHILS # 7.2 10^3/uL (1.5-8.5); NEUTROPHILS % 80.3 % (36.0-66.0); PLATELET COUNT, AUTOMATED 231 10^3/uL (150-450); RED BLOOD COUNT 3.75 10^6/uL (4.30-6.10); WHITE BLOOD COUNT 8.9 10^3/uL (4.0-10.0)
[2020-12-16 08:59] LABS: ALBUMIN 3.1 GM/DL (3.2-5.2); ALT/SGPT 21 U/L (12-78); BILIRUBIN,DIRECT 0.1 MG/DL (0.0-0.2); BILIRUBIN,TOTAL 0.3 MG/DL (0.2-1.0); BLOOD UREA NITROGEN 49 MG/DL (7-18); CALCIUM LEVEL 8.2 MG/DL (8.8-10.2); CARBON DIOXIDE LEVEL 20 MEQ/L (21-32); CHLORIDE LEVEL 104 MEQ/L (98-107); CPK CREATINE PHOSPHOKINASE 54 U/L (39-308); CREATININE FOR GFR 1.12 MG/DL (0.70-1.30); GLOMERULAR FILTRATION RATE > 60.0 (>35); GLUCOSE, FASTING 196 MG/DL (70-100); NT-PRO BNP 133 PG/ML (<450); POTASSIUM SERUM 4.6 MEQ/L (3.5-5.1); SODIUM LEVEL 133 MEQ/L (136-145); THYROID STIMULATING HORMONE 0.728 uIU/ML (0.358-3.740); THYROXINE (T4) 8.6 UG/DL (4.5-12.0)
[2020-12-16] MEDS ORDERED: PANTOPRAZOLE 40MG VIAL (C9113 PER 1) IV SCH (09:00)
--- OUTSIDE RECORDS SUMMARY | 2020-12-16 09:15 | CCD ---
Author Author [facility] Organization [facility] Address Unknown Phone Unavailable Care Team Providers Care Blue Print Control Clerk Name Role Phone Proctor, N Armen SHAKE CUTTER Unavailable Unavailable Siobhan, N Armen SHAKE CUTTER Unavailable Unavailable Proctor, N Armen SHAKE CUTTER Unavailable Unavailable Siobhan, N Armen SHAKE CUTTER Unavailable Unavailable Proctor, N Armen SHAKE CUTTER Unavailable Unavailable Proctor, N Armen SHAKE CUTTER Unavailable Unavailable Siobhan, N Armen SHAKE CUTTER Unavailable Unavailable Siobhan, N Armen SHAKE CUTTER Unavailable Unavailable Proctor, N Armen SHAKE CUTTER Unavailable Unavailable Proctor, N Armen SHAKE CUTTER Unavailable Unavailable Proctor, N Armen SHAKE CUTTER Unavailable Unavailable Siobhan, N Armen SHAKE CUTTER Unavailable Unavailable Siobhan, N Armen SHAKE CUTTER Unavailable Unavailable Siobhan, N Armen SHAKE CUTTER Unavailable Unavailable Proctor, N Armen SHAKE CUTTER Unavailable Unavailable Siobhan, N Armen SHAKE CUTTER Unavailable Unavailable Siobhan, N Armen SHAKE CUTTER Unavailable Unavailable Siobhan, N Armen SHAKE CUTTER Unavailable Unavailable Proctor, N Armen SHAKE CUTTER Unavailable Unavailable Proctor, N Armen SHAKE CUTTER Unavailable Unavailable Proctor, N Armen SHAKE CUTTER Unavailable Unavailable Siobhan, N Armen SHAKE CUTTER Unavailable Unavailable Siobhan, N Armen SHAKE CUTTER Unavailable Unavailable Proctor, N Armen SHAKE CUTTER Unavailable Unavailable Proctor, N Armen SHAKE CUTTER Unavailable Unavailable Siobhan, N Armen SHAKE CUTTER Unavailable Unavailable Proctor, N Armen SHAKE CUTTER Unavailable Unavailable Proctor, N Armen SHAKE CUTTER Unavailable Unavailable Siobhan, N Armen SHAKE CUTTER Unavailable Unavailable Siobhan, N Armen SHAKE CUTTER Unavailable Unavailable Siobhan, N Armen SHAKE CUTTER Unavailable Unavailable Proctor, N Armen SHAKE CUTTER Unavailable Unavailable Siobhan, N Armen SHAKE CUTTER Unavailable Unavailable [place], Mariae Lugoff SHAKE CUTTER Unavailable Unavailable Gonzalo, Mariae Kenna SHAKE CUTTER Unavailable Unavailable Gonzalo, Mariae Lugoff SHAKE CUTTER Unavailable Unavailable [place], Mariae Kenna SHAKE CUTTER Unavailable Unavailable [place], Mariae Kenna SHAKE CUTTER Unavailable Unavailable Gonzalo, Mariae Kenna SHAKE CUTTER Unavailable Unavailable [place], Mariae Lugoff SHAKE CUTTER Unavailable Unavailable Gonzalo, Mariae Kenna SHAKE CUTTER Unavailable Unavailable [place], Mariae Kenna SHAKE CUTTER Unavailable Unavailable Gonzalo, Mariae Kenna SHAKE CUTTER Unavailable Unavailable [place], Mariae Lugoff SHAKE CUTTER Unavailable Unavailable [place], Mariae Kenna SHAKE CUTTER Unavailable Unavailable [place], Mariae Kenna SHAKE CUTTER Unavailable Unavailable [place], Mariae Lugoff SHAKE CUTTER Unavailable Unavailable Gonzalo, Mariae Kenna SHAKE CUTTER Unavailable Unavailable Gonzalo, Mariae Lugoff SHAKE CUTTER Unavailable Unavailable Gonzalo, Mariae Lugoff SHAKE CUTTER Unavailable Unavailable Courtney, Alphonso Maynard MD Unavailable Unavailable Courtney, Alphonso Maynard MD Unavailable Unavailable Courtney, Alphonso Maynard MD Unavailable Unavailable Courtney, Alphonso Maynard MD Unavailable Unavailable Courtney, Alphonso Maynard MD Unavailable Unavailable Courtney, Alphonso Maynard MD Unavailable Unavailable Courtney, Alphonso Maynard MD Unavailable Unavailable Courtney, Alphonso Maynard MD Unavailable Unavailable Courtney, Alphonso Maynard MD Unavailable Unavailable Courtney, Alphonso Maynard MD Unavailable Unavailable Courtney, Alphonso Maynard MD Unavailable Unavailable Courtney, Alphonso Maynard MD Unavailable Unavailable Courtney, Alphonso Maynard MD Unavailable Unavailable Courtney, Alphonso Maynard MD Unavailable Unavailable Courtney, Alphonso Maynard MD Unavailable Unavailable Courtney, Alphonso Maynard MD Unavailable Unavailable Courtney, Alphonso Maynard MD Unavailable Unavailable Courtney, Alphonso Maynard MD Unavailable Unavailable Courtney, Alphonso Maynard MD Unavailable Unavailable Courtney, Alphonso Maynard MD Unavailable Unavailable Courtney, Alphonso Maynard MD Unavailable Unavailable Courtney, Alphonso Maynard MD Unavailable Unavailable Courtney, Alphonso Maynard MD Unavailable Unavailable Courtney, Alphonso Maynard MD Unavailable Unavailable Courtney, Alphonso Maynard MD Unavailable Unavailable Courtney, Alphonso Maynard MD Unavailable Unavailable Courtney, Alphonso Maynard MD Unavailable Unavailable Courtney, Alphonso Maynard MD Unavailable Unavailable Courtney, Alphonso Maynard MD Unavailable Unavailable Courtney, Alphonso Maynard MD Unavailable Unavailable Courtney, Alphonso Maynard MD Unavailable Unavailable Courtney, Alphonso Maynard MD Unavailable Unavailable Courtney, Alphonso Maynard MD Unavailable Unavailable Courtney, Alphonso Maynard MD Unavailable Unavailable Courtney, Alphonso Maynard MD Unavailable Unavailable Courtney, Alphonso Maynard MD Unavailable Unavailable Courtney, Alphonso Maynard MD Unavailable Unavailable Courtney, Alphonso Maynard MD Unavailable Unavailable Courtney, Alphonso Maynard MD Unavailable Unavailable Courtney, Alphonso Maynard MD Unavailable Unavailable Courtney, Alphonso Maynard MD Unavailable Unavailable Courtney, Alphonso Maynard MD Unavailable Unavailable Courtney, Alphonso Maynard MD Unavailable Unavailable Courtney, Alphonso Maynard MD Unavailable Unavailable Courtney, Alphonso Maynard MD Unavailable Unavailable Courtney, Alphonso Maynard MD Unavailable Unavailable Courtney, Alphonso Maynard MD Unavailable Unavailable Courtney, Alphonso Maynard MD Unavailable Unavailable Courtney, Alphonso Maynard MD Unavailable Unavailable Courtney, Alphonso Maynard MD Unavailable Unavailable Courtney, Alphonso Maynard MD Unavailable Unavailable Courtney, Alphonso Maynard MD Unavailable Unavailable Courtney, Alphonso Maynard MD Unavailable Unavailable Courtney, Alphonso Maynard MD Unavailable Unavailable Courtney, Alphonso Maynard MD Unavailable Unavailable Courtney, Alphonso Maynard MD Unavailable Unavailable Courtney, Alphonso Maynard MD Unavailable Unavailable Courtney, Alphonso Maynard MD Unavailable Unavailable Courtney, Alphonos Maynard MD Unavailable Unavailable Courtney, Alphonso Maynard MD Unavailable Unavailable Courtney, Alphonso Maynard MD Unavailable Unavailable Courtney, Alphonso Maynard MD Unavailable Unavailable Courtney, Alphonso Maynard MD Unavailable Unavailable Courtney, Alphonso Maynard MD Unavailable Unavailable Courtney, Alphonso Maynard MD Unavailable Unavailable Courtney, Alphonso Maynard MD Unavailable Unavailable Courtney, Alphonso Maynard MD Unavailable Unavailable Courtney, Alphonso Maynard MD Unavailable Unavailable Courtney, Alphonso Maynard MD Unavailable Unavailable Courtney, Alphonso Maynard MD Unavailable Unavailable Courtney, Alphonso Maynard MD Unavailable Unavailable Courtney, Alphonso Maynard MD Unavailable Unavailable Courtney, Alphonso Maynard MD Unavailable Unavailable Courtney, Alphonso Maynard MD Unavailable Unavailable Courtney, Alphonso Maynard MD Unavailable Unavailable Courtney, Alphonso Maynard MD Unavailable Unavailable CourtneyAlphonso reid MD Unavailable Unavailable CHANLIECCO, C GISELE MD Unavailable Unavailable CHANLIECCO, C GISELE MD Unavailable Unavailable CHANLIECCO, C GISELE MD Unavailable Unavailable CHANLIECCO, C GISELE MD Unavailable Unavailable CHANLIECCO, C GISELE MD Unavailable Unavailable CHANLIECCO, C GISELE MD Unavailable Unavailable CHANLIECCO, C GISELE MD Unavailable Unavailable CHANLIECCO, C GISELE MD Unavailable Unavailable CHANLIECCO, C GISELE MD Unavailable Unavailable CHANLIECCO, C GISELE MD Unavailable Unavailable CHANLIECCO, C GISELE MD Unavailable Unavailable Re-disclosure Warning The records that you are about to access may contain information from federally-assisted alcohol or drug abuse programs. If such information is present, then the following federally mandated warning applies: This information has been disclosed to you from records protected by federal confidentiality rules (42 CFR part 2). The federal rules prohibit you from making any further disclosure of this information unless further disclosure is expressly permitted by the written consent of the person to whom it pertains or as otherwise permitted by 42 CFR part 2. A general authorization for the release of medical or other information is NOT sufficient for this purpose. The Federal rules restrict any use of the information to criminally investigate or prosecute any alcohol or drug abuse patient.The records that you are about to access may contain highly sensitive health information, the redisclosure of which is protected by Article 27-F of the [facility] Public Health law. If you continue you may have access to information: Regarding HIV / AIDS; Provided by facilities licensed or operated by the [facility] Office of Mental Health; or Provided by the [facility] Office for People With Developmental Disabilities. If such information is present, then the following [facility] mandated warning applies: This information has been disclosed to you from confidential records which are protected by state law. State law prohibits you from making any further disclosure of this information without the specific written consent of the person to whom it pertains, or as otherwise permitted by law. Any unauthorized further disclosure in violation of state law may result in a fine or long term sentence or both. A general authorization for the release of medical or other information is NOT sufficient authorization for further disc losure. Allergies and Adverse Reactions Type Description Substance Reaction Status Data Source(s ) No Known Drug Allergies No Known Drug Allergies [facility] Family History Family Member Name Family Member Gender Family Member Status Date o f Status Description Data Source(s) Unknown Unknown Problem [facility] ([facility], ) Encounters Encounter Providers Location Date Indications Data Source(s ) Emergency Attender: GISELE FISCHER MDConsultant: Giles Valdez MD 12/13/2020 07:59:00 AM EDT - 12/13/2020 10:50:00 AM EDT [facility] Patient discharged. <td ID="encounterTypeDescriptionID0">STA AVINASHARD OV</td><td>Kenna Sánchez NP</td><td>[facility]</td><td>10/09/2020</td><td>8:39AM</td><td>9:30AM</td><td><content ID="encounterDiagnosisID0-0">Essential Hypertension Benign</content>, <content ID="encounterDiagnosisID0-1">Diabetes Mellitus Type 2 Without Complication</content>, <content ID="encounterDiagnosisID0- 2">Hyperlipidemia</content>, <content ID="encounterDiagnosisID0-3">Gerd</content></td>Outpatient Attender: Kenna Sánchze NP [facility] 10/09/2020 08:39:00 AM EDT - 10/09/2020 09:30:00 AM EDT HyperlipidemiaDiabetes Mellitus Type 2 W ithout ComplicationEssential Hypertension BenignGerd U[place]LO ([facility]) Hyperlipidemia Diabetes Mellitus Type 2 Without Complic ation Essential Hypertension Benign Gerd Outpatient Attender: Armen Mccann NP [email or web address] 12:00:00 AM EDT - 08/18/2020 01:37:20 PM EDT [facility] <td ID="encounterTypeDescriptionID1">STA CYNDI OV</td><td>Kenna Sánchez NP</td><td>[facility]</td><td>07/14/2020</td><td>9:05AM</td><td>9:53AM</td><td><content ID="encounterDiagnosisID1-0">Diabetes Mellitus Type 2</content>, <content ID="encounterDiagnosisID1-1">Essential Hypertension Benign</content>, <content ID="encounterDiagnosisID1-2">Hyperlipidemia</content>, <content ID="encounterDiagnosisID1-3">Gerd</content></td>Outpatient Attender: Kenna Sánchez NP [facility], 07/14/2020 09:05:00 AM EDT - 07/14/2020 09:53:00 AM EDT HyperlipidemiaDiabetes Mellitus Type 2Hy perlipidemiaDiabetes Mellitus Type 2Essential Hypertension BenignEssential Hypertension BenignGerdGerd UBALDO ([facility]) Hyperlipidemia Diabetes Mellitus Type 2 Hyperlipidemia Diabetes Mellitus Type 2 Essential Hypertension Benign Essential Hypertension Benign Gerd Gerd Outpatient<td ID="encounterTypeDescripti onID2">E-VISIT E/M</td><td>Kenna Sánchez NP</td><td>[facility],</td><td>04/16/2020</td><td>8:49AM</td><td>11:43AM</td><td><content ID="encounterDiagnosisID2-0">Hyperhidrosis Focal</content>, <content ID="encounterDiagnosisID2-1">Diabetes Mellitus Type 2</content>, <content ID="encounterDiagnosisID2-2">Essential Hypertension Benign</content>, <content ID="encounterDiagnosisID2-3">Hyperlipidemia</content>, <content ID="encounterDiagnosisID2-4">Vitamin D Deficiency</content></td> Attender: Kenna Sánchez NP [facility], 04/16/2020 08:49:00 AM EST - 04/16/2020 11:43:00 AM EST Vitamin D DeficiencyHyperlipidemiaDiabet es Mellitus Type 2Hyperhidrosis FocalVitamin D DeficiencyHyperlipidemiaDiabetes Mellitus Type 2Hyperhidrosis FocalVitamin D DeficiencyHyperlipidemiaDiabetes Mellitus Type 2Hyperhidrosis FocalEssential Hypertension BenignEssential Hypertension BenignEssential Hypertension Benign [place] ([facility]) Vitamin D Deficiency Hyperlipidemia Diabetes Mellitus Type 2 Hyperhidrosis Focal Vitamin D Deficiency Hyperlipidemia Diabetes Mellitus Type 2 Hyperhidrosis Focal Vitamin D Deficiency Hyperlipidemia Diabetes Mellitus Type 2 Hyperhidrosis Focal Essential Hypertension Benign Essential Hypertension Benign Essential Hypertension Benign Outpatient Attender: Armen Mccann NP SJP.[email or web address] 12:00:00 AM EST - 02/12/2020 01:54:28 PM EST [facility] <td ID="encounterTypeDescriptionID3">STA NDARD OV</td><td>Kenna Sánchez SHAKE CUTTER</td><td>[facility],</td><td>01/01/2020</td><td>12:27PM</td><td>1:59PM</td><td><content ID="encounterDiagnosisID3-0">Hyperhidrosis</content>, <content ID="encounterDiagnosisID3-1">Secondary Hypertension Benign</content>, <content ID="encounterDiagnosisID3-2">Diabetes Mellitus Type 2 with Complication</content></td>Outpatient Attender: Kenna Sánchez NP [facility], 01/01/2020 12:27:00 PM EST - 01/01/2020 01:59:00 PM ES T Diabetes Mellitus Type 2 with ComplicationSecondary Hypertension BenignHyperhidrosisDiabetes Mellitus Type 2 with ComplicationSecondary Hypertension BenignHyperhidrosisDiabetes Mellitus Type 2 with C omplicationSecondary Hypertension BenignHyperhidrosisDiabetes Mellitus Type 2 with ComplicationSecondary Hypertension BenignHyperhidrosis [place] ([facility]) Diabetes Mellitus Type 2 with Complicati on Secondary Hypertension Benign Hyperhidrosis Diabetes Mellitus Type 2 with Complicati on Secondary Hypertension Benign Hyperhidrosis Diabetes Mellitus Type 2 with Complicati on Secondary Hypertension Benign Hyperhidrosis Diabetes Mellitus Type 2 with Complicati on Secondary Hypertension Benign Hyperhidrosis Immunizations Vaccine Date Status Description Data Source(s) COVID-19 VACCINE Pfizer 05/21/2020 12:00:00 AM EDT completed [facility] Vaccine Series Complete: YESThis Data wa s Submitted to [facility] Via [employer] COVID-19 VACCINE [email or web address] 04/30/2020 12:00:00 AM EST completed [facility] Vaccine Series Complete: NOThis Data was Submitted to [facility] Via [employer] Medications Medication Brand Name Start Date Product Form Dose Route Admi nistrative Instructions Pharmacy Instructions Status Indications Reaction Description Data Source(s) 500 mg 12/11/2020 12:00:00 AM EDT tablet 180 TAKE ONE TABLET BY MOUTH TWO TIMES A DAY TAKE ONE TABLET BY MOUTH TWO TIMES A DAY SOLD: 12/11/2020 [facility] 1 gram 12/06/2020 12:00:00 AM EDT tablet 60 TAKE ONE TABLET BY MOUTH TWICE A DAY TAKE ONE TABLET BY MOUTH TWICE A DAY SOLD: 12/07/2020 [facility] 10 mg 12/06/2020 12:00:00 AM EDT tablet 90 TAKE 1 TABLET [10MG] BY MOUTH THREE TIMES A DAY BEFORE MEALS TAKE 1 TABLET [10MG] BY MOUTH THREE TIME S A DAY BEFORE MEALS SOLD: 12/07/2020 [facility] 5 mg 11/25/2020 12:00:00 AM EDT tablet 90 TAKE ONE TABLET BY MOUTH EVERY DAY TAKE ONE TABLET BY MOUTH EVERY DAY SOLD: 11/25/2020 [facility] 0.004 % 11/19/2020 12:00:00 AM EDT drops 5 INSTILL 1 DROP IN EACH EYE EVERY EVENING INSTILL 1 DROP IN EACH EYE EVERY EVENING SOLD: 11/20/2020 [facility] 1 gram 11/13/2020 12:00:00 AM EDT tablet 120 TAKE ONE TABLET BY MOUTH BEFORE MEALS AND AT BEDTIME (4 TIMES A DAY) TAKE ONE TABLET BY MOUTH BEFORE MEALS AN D AT BEDTIME (4 TIMES A DAY) SOLD: 11/13/2020 [facility] 10 mg 11/13/2020 12:00:00 AM EDT tablet 90 TAKE ONE TABLET BY MOUTH THREE TIMES A DAY (BEFORE FOOD & BEDTIME) TAKE ONE TABLET BY MOUTH THREE TIMES A D AY (BEFORE FOOD & BEDTIME) SOLD: 11/13/2020 [facility] pantoprazole 40 MG Delayed Release Oral Tablet PANTOPRAZOLE SODIUM 11/13/2020 12:00:00 AM EDT tablet,delayed release (DR/EC) 60 T JESENIA ONE TABLET BY MOUTH TWICE A DAY TAKE ONE TABLET BY MOUTH TWICE A DAY SOLD: 11/13/2020 [facility] Fenofibrate 48 MG Oral Tablet FENOFIBRATE NANOCRYSTALLIZED 0 10/30/2020 12:00:00 AM EDT tablet 30 TAKE ONE TABLET BY MOUTH AT BEDTIME TAKE ONE TABLET BY MOUTH AT BEDTIME SOLD: 10/30/2020 [facility] Fenofibrate 48 MG Oral Tablet FENOFIBRATE NANOCRYSTALLIZED 0 10/30/2020 12:00:00 AM EDT tablet 30 TAKE ONE TABLET BY MOUTH AT BEDTIME TAKE ONE TABLET BY MOUTH AT BEDTIME SOLD: 11/30/2020 [facility] BLOOD SUGAR DIAGNOSTIC 10/24/2020 12:00:00 AM EDT strip 100 TEST TWO TIMES A DAY TEST TWO TIMES A DAY SOLD: 10/28/2020 [facility] Klor-Con M20 20 MEQ Oral Tablet Extended Release Klor- Con M20 20 MEQ Oral Tablet Extended Release 10/09/2020 12:00:00 AM EDT active Microencapsulated potassium chloride 20 MEQ Extended Release Oral Tablet [Klor-Con] [facility] ([facility]) 1,250 mcg (50,000 unit) 10/09/2020 12:00:00 AM EDT capsule 2 TAKE ONE CAPSULE BY MOUTH EVERY 2 WEEKS TAKE ONE CAPSULE BY MOUTH EVERY 2 WEEKS SOLD: 12/04/2020 [facility] Losartan Potassium 100 MG Oral Tablet Losartan Potassium 100 MG Oral Tablet 10/09/2020 12:00:00 AM EDT 1 active losartan potassium 100 MG Oral Tablet [facility] ([facility]) 81 mg 10/09/2020 12:00:00 AM EDT tablet,delayed release (DR/EC) 90 TAKE ONE TABLET BY MOUTH ONCE DAILY TAKE ONE TABLET BY MOUTH ONCE DAILY SOLD: 10/09/2020 [facility] 100 mg 10/09/2020 12:00:00 AM EDT tablet 90 TAKE ONE TABLET BY MOUTH ONCE DAILY TAKE ONE TABLET BY MOUTH ONCE DAILY SOLD: 10/09/2020 [facility] Metformin hydrochloride 500 MG Oral Tablet metFORMIN H Cl 500 MG Oral Tablet metFORMIN HCl 500 MG Oral Tablet 10/09/2020 12:00:00 AM EDT active metformin hydrochloride 500 MG Oral Tablet [facility] ([facility]) 40 mg 10/09/2020 12:00:00 AM EDT capsule,delayed release (DR/EC) 90 TAKE ONE CAPSULE BY MOUTH EVERY MORNING TAKE ONE CAPSULE BY MOUTH EVERY MORNING SOLD: 10/09/2020 [facility] Esomeprazole 40 MG Delayed Release Oral Capsule [Nexium] NexIUM 40 MG Oral Capsule Delayed Release NexIUM 40 MG Oral Capsule Delayed Release 10/09/2020 12:00:00 AM EDT active esomeprazole 40 MG Delayed Release Oral Capsule [Nexium] [place] ([facility]) LANCETS 10/09/2020 12:00:00 AM EDT misc 100 TEST TWO TIMES A DAY TEST TWO TIMES A DAY SOLD: 10/09/2020 [facility] 25 mg 10/09/2020 12:00:00 AM EDT tablet 30 TAKE ONE TABLET BY MOUTH ONCE DAILY TAKE ONE TABLET BY MOUTH ONCE DAILY SOLD: 10/09/2020 [facility] Simvastatin 80 MG Oral Tablet Simvastatin 80 MG Oral Tablet 10/09/2020 12:00:00 AM EDT active simvastatin 80 MG Oral Tablet [place] ([facility]) 50 mg 10/09/2020 12:00:00 AM EDT tablet 180 TAKE ONE TABLET BY MOUTH TWO TIMES A DAY TAKE ONE TABLET BY MOUTH TWO TIMES A DAY SOLD: 10/09/2020 [facility] Accu-Chek Soft Touch Lancets Miscellaneous Accu-Chek S oft Touch Lancets Miscellaneous 10/09/2020 12:00:00 AM EDT acti ve Accu-Chek Soft Touch Lancets [place] ([facility]) 1,250 mcg (50,000 unit) 10/09/2020 12:00:00 AM EDT capsule 2 TAKE ONE CAPSULE BY MOUTH EVERY 2 WEEKS TAKE ONE CAPSULE BY MOUTH EVERY 2 WEEKS SOLD: 10/09/2020 [facility] Ergocalciferol 80593 UNT Oral Capsule [D risdol] Drisdol 1.25 MG (13247 UT) Oral Capsule Drisdol 1.25 MG (34203 UT) Oral Capsule 10/09/2020 12:00:00 AM EDT active ergocalciferol 1.25 MG Oral Capsule [Drisdol] [facility] ([facility]) Fenofibrate 48 MG Oral Tablet Fenofibrate 48 MG Oral Tablet 10/09/2020 12:00:00 AM EDT active fenofibrate 48 MG Oral Tablet [facility] ([facility]) 25 mg 10/09/2020 12:00:00 AM EDT tablet 30 TAKE ONE TABLET BY MOUTH ONCE DAILY TAKE ONE TABLET BY MOUTH ONCE DAILY SOLD: 11/06/2020 [facility] Hydrochlorothiazide 25 MG Oral Tablet hydroCHLOROthiaz ruth ann 25 MG Oral Tablet hydroCHLOROthiazide 25 MG Oral Tablet 10/09/2020 12:00:00 AM EDT active hydrochlorothiazide 25 MG Oral T ablet [facility] ([facility]) 25 mg 10/09/2020 12:00:00 AM EDT tablet 30 TAKE ONE TABLET BY MOUTH ONCE DAILY TAKE ONE TABLET BY MOUTH ONCE DAILY SOLD: 12/04/2020 [facility] 1,250 mcg (50,000 unit) 10/09/2020 12:00:00 AM EDT capsule 2 TAKE ONE CAPSULE BY MOUTH EVERY 2 WEEKS TAKE ONE CAPSULE BY MOUTH EVERY 2 WEEKS SOLD: 11/06/2020 [facility] SM Aspirin Adult Low Strength 81 MG Oral Tablet Delaye d Release SM Aspirin Adult Low Strength 81 MG Oral Tablet Delayed Release 10/09/2020 12:00:00 AM EDT active SM Aspirin Adult Low Strength [facility] ([facility]) Atenolol 50 MG Oral Tablet [Tenormin] Tenormin 50 MG O ral Tablet Tenormin 50 MG Oral Tablet 10/09/2020 12:00:00 AM EDT active atenolol 50 MG Oral Tablet [Tenormin] [facility] ([facility]) 80 mg 10/09/2020 12:00:00 AM EDT tablet 90 TAKE ONE TABLET BY MOUTH AT BEDTIME TAKE ONE TABLET BY MOUTH AT BEDTIME SOLD: 10/09/2020 [facility] 500 mg 09/17/2020 12:00:00 AM EDT tablet 180 TAKE ONE TABLET BY MOUTH TWICE A DAY TAKE ONE TABLET BY MOUTH TWICE A DAY SOLD: 09/17/2020 [facility] 40 mg 08/11/2020 12:00:00 AM EDT capsule,delayed release (DR/EC) 30 TAKE ONE CAPSULE BY MOUTH EVERY MORNING TAKE ONE CAPSULE BY MOUTH EVERY MORNING SOLD: 09/14/2020 [facility] 40 mg 08/11/2020 12:00:00 AM EDT capsule,delayed release (DR/EC) 30 TAKE ONE CAPSULE BY MOUTH EVERY MORNING TAKE ONE CAPSULE BY MOUTH EVERY MORNING SOLD: 08/14/2020 [facility] Fenofibrate 48 MG Oral Tablet FENOFIBRATE NANOCRYSTALLIZED 0 08/07/2020 12:00:00 AM EDT tablet 30 TAKE ONE TABLET BY MOUTH AT BEDTIME TAKE ONE TABLET BY MOUTH AT BEDTIME SOLD: 09/04/2020 [facility] Fenofibrate 48 MG Oral Tablet FENOFIBRATE NANOCRYSTALLIZED 0 08/07/2020 12:00:00 AM EDT tablet 30 TAKE ONE TABLET BY MOUTH AT BEDTIME TAKE ONE TABLET BY MOUTH AT BEDTIME SOLD: 08/07/2020 [facility] Fenofibrate 48 MG Oral Tablet Fenofibrate 48 MG Oral Tablet 08/07/2020 12:00:00 AM EDT aborted fenofibrate 48 M G Oral Tablet [place] ([facility]) Fenofibrate 48 MG Oral Tablet FENOFIBRATE NANOCRYSTALLIZED 0 08/07/2020 12:00:00 AM EDT tablet 30 TAKE ONE TABLET BY MOUTH AT BEDTIME TAKE ONE TABLET BY MOUTH AT BEDTIME SOLD: 10/02/2020 [facility] 50 mg 07/29/2020 12:00:00 AM EDT tablet 60 TAKE ONE TABLET BY MOUTH TWICE A DAY TAKE ONE TABLET BY MOUTH TWICE A DAY SOLD: 07/29/2020 [facility] 50 mg 07/29/2020 12:00:00 AM EDT tablet 60 TAKE ONE TABLET BY MOUTH TWICE A DAY TAKE ONE TABLET BY MOUTH TWICE A DAY SOLD: 08/26/2020 [facility] BLOOD SUGAR DIAGNOSTIC 07/25/2020 12:00:00 AM EDT strip 100 USE ONE STRIP TO TEST TWICE A DAY USE ONE STRIP TO TEST TWICE A DAY SOLD: 07/26/2020 [facility] 1,250 mcg (50,000 unit) 07/15/2020 12:00:00 AM EDT capsule 2 TAKE 1 CAPSULE BY MOUTH EVERY 2 WEEKS TAKE 1 CAPSULE BY MOUTH EVERY 2 WEEKS SOLD: 08/26/2020 [facility] 1,250 mcg (50,000 unit) 07/15/2020 12:00:00 AM EDT capsule 2 TAKE 1 CAPSULE BY MOUTH EVERY 2 WEEKS TAKE 1 CAPSULE BY MOUTH EVERY 2 WEEKS SOLD: 10/04/2020 [facility] 1,250 mcg (50,000 unit) 07/15/2020 12:00:00 AM EDT capsule 2 TAKE 1 CAPSULE BY MOUTH EVERY 2 WEEKS TAKE 1 CAPSULE BY MOUTH EVERY 2 WEEKS SOLD: 07/15/2020 [facility] 80 mg 07/14/2020 12:00:00 AM EDT tablet 30 TAKE ONE TABLET BY MOUTH AT BEDTIME TAKE ONE TABLET BY MOUTH AT BEDTIME SOLD: 09/11/2020 [facility] 20 mEq 07/14/2020 12:00:00 AM EDT tablet,ER particles/cry stals 30 TAKE ONE TABLET BY MOUTH AT BEDTIME TAKE ONE TABLET BY MOUTH AT BEDTIME SOLD: 10/04/2020 [facility] LANCETS 07/14/2020 12:00:00 AM EDT misc 100 TEST TWO TIMES A DAY TEST TWO TIMES A DAY SOLD: 07/15/2020 [facility] Atenolol 50 MG Oral Tablet [Tenormin] Tenormin 50 MG O ral Tablet Tenormin 50 MG Oral Tablet 07/14/2020 12:00:00 AM EDT aborte d atenolol 50 MG Oral Tablet [Tenormin] [facility] ([facility]) 80 mg 07/14/2020 12:00:00 AM EDT tablet 30 TAKE ONE TABLET BY MOUTH AT BEDTIME TAKE ONE TABLET BY MOUTH AT BEDTIME SOLD: 07/15/2020 [facility] 100 mg 07/14/2020 12:00:00 AM EDT tablet 90 TAKE ONE TABLET BY MOUTH EVERY DAY TAKE ONE TABLET BY MOUTH EVERY DAY SOLD: 07/15/2020 [facility] Simvastatin 80 MG Oral Tablet Simvastatin 80 MG Oral Tablet 07/14/2020 12:00:00 AM EDT aborted simvastatin 80 M G Oral Tablet [facility] ([facility]) Esomeprazole 40 MG Delayed Release Oral Capsule [Nexium] NexIUM 40 MG Oral Capsule Delayed Release NexIUM 40 MG Oral Capsule Delayed Release 07/14/2020 12:00:00 AM EDT aborted esomeprazole 40 MG Delayed Release Oral Capsule [Nexium] [facility] ([facility]) Ergocalciferol 72791 UNT Oral Capsule [D risdol] Drisdol 1.25 MG (61787 UT) Oral Capsule Drisdol 1.25 MG (12305 UT) Oral Capsule 07/14/2020 12:00:00 AM EDT aborted ergocalciferol 1.25 MG Oral Capsule [Drisdol] [facility]) Metformin hydrochloride 500 MG Oral Tablet metFORMIN H Cl 500 MG Oral Tablet metFORMIN HCl 500 MG Oral Tablet 07/14/2020 12:00:00 AM EDT aborted metformin hydrochloride 500 MG Oral Tablet [facility]) Losartan Potassium 100 MG Oral Tablet Losartan Potassium 100 MG Oral Tablet 07/14/2020 12:00:00 AM EDT 1 aborted losartan potassium [address] [facility]) 20 mEq 07/14/2020 12:00:00 AM EDT tablet,ER particles/cry stals 30 TAKE ONE TABLET BY MOUTH AT BEDTIME TAKE ONE TABLET BY MOUTH AT BEDTIME SOLD: 07/15/2020 [facility] Klor-Con M20 20 MEQ Oral Tablet Extended Release Klor- Con M20 20 MEQ Oral Tablet Extended Release 07/14/2020 12:00:00 AM EDT aborted Microencapsulated potassium chloride 20 MEQ Extended Release Oral Tablet [Klor-Con] [facility]) 25 mg 07/14/2020 12:00:00 AM EDT tablet 30 TAKE ONE TABLET BY MOUTH EVERY DAY TAKE ONE TABLET BY MOUTH EVERY DAY SOLD: 07/15/2020 [facility] 80 mg 07/14/2020 12:00:00 AM EDT tablet 30 TAKE ONE TABLET BY MOUTH AT BEDTIME TAKE ONE TABLET BY MOUTH AT BEDTIME SOLD: 08/14/2020 [facility] Hydrochlorothiazide 25 MG Oral Tablet hydroCHLOROthiaz ruth ann 25 MG Oral Tablet hydroCHLOROthiazide 25 MG Oral Tablet 07/14/2020 12:00:00 AM EDT aborted hydrochlorothiazide [address] [facility]) Fenofibrate 48 MG Oral Tablet Fenofibrate 48 MG Oral Tablet 07/14/2020 12:00:00 AM EDT aborted fenofibrate 48 M G Oral Tablet [facility]) Accu-Chek Soft Touch Lancets Miscellaneous Accu-Chek S oft Touch Lancets Miscellaneous 07/14/2020 12:00:00 AM EDT abor rufino Accu-Chek Soft Touch Lancets [facility] ([facility]) Accu-Chek Yi Plus In Vitro Strip Accu-Chek Yi Plus In Vitro Strip 07/14/2020 12:00:00 AM EDT active Accu-Chek Yi Plus [facility] ([facility]) Ergocalciferol 53601 UNT Oral Capsule [D risdol] Drisdol 1.25 MG (91036 UT) Oral Capsule Drisdol 1.25 MG (67073 UT) Oral Capsule 07/14/2020 12:00:00 AM EDT aborted ergocalciferol 1.25 MG Oral Capsule [Drisdol] [facility] ([facility]) 81 mg 07/11/2020 12:00:00 AM EDT tablet,delayed release (DR/EC) 90 TAKE ONE TABLET BY MOUTH EVERY DAY TAKE ONE TABLET BY MOUTH EVERY DAY SOLD: 07/12/2020 [facility] SM Aspirin Adult Low Strength 81 MG Oral Tablet Delaye d Release SM Aspirin Adult Low Strength 81 MG Oral Tablet Delayed Release 07/10/2020 12:00:00 AM EDT aborted SM Aspirin Adult Low Strength [facility] ([facility]) 20 mEq 06/12/2020 12:00:00 AM EDT tablet,ER particles/cry stals 30 TAKE ONE TABLET BY MOUTH DAILY AT BEDTIME TAKE ONE TABLET BY MOUTH DAILY AT BEDTIME SOLD: 06/12/2020 [facility] Metformin hydrochloride 500 MG Oral Tablet METFORMIN HCL 06/05/2020 12:00:00 AM EDT tablet 180 TAKE ONE TABLET BY MOUTH TWI CE A DAY TAKE ONE TABLET BY MOUTH TWICE A DAY SOLD: 06/05/2020 [facility] 40 mg 05/13/2020 12:00:00 AM EDT capsule,delayed release (DR/EC) 30 TAKE ONE CAPSULE BY MOUTH EVERY MORNING TAKE ONE CAPSULE BY MOUTH EVERY MORNING SOLD: 06/10/2020 [facility] 40 mg 05/13/2020 12:00:00 AM EDT capsule,delayed release (DR/EC) 30 TAKE ONE CAPSULE BY MOUTH EVERY MORNING TAKE ONE CAPSULE BY MOUTH EVERY MORNING SOLD: 07/12/2020 [facility] 40 mg 05/13/2020 12:00:00 AM EDT capsule,delayed release (DR/EC) 30 TAKE ONE CAPSULE BY MOUTH EVERY MORNING TAKE ONE CAPSULE BY MOUTH EVERY MORNING SOLD: 05/14/2020 [facility] 50 mg 04/26/2020 12:00:00 AM EST tablet 60 TAKE ONE TABLET BY MOUTH TWICE A DAY TAKE ONE TABLET BY MOUTH TWICE A DAY SOLD: 04/26/2020 [facility] 50 mg 04/26/2020 12:00:00 AM EST tablet 60 TAKE ONE TABLET BY MOUTH TWICE A DAY TAKE ONE TABLET BY MOUTH TWICE A DAY SOLD: 06/26/2020 [facility] Atenolol 50 MG Oral Tablet ATENOLOL 04/26/2020 12:00:00 AM EST tablet 60 TAKE ONE TABLET BY MOUTH TWICE A DAY TAKE ONE TABLET BY MOUTH TWICE A DAY SOLD: 05/28/2020 [facility] 1,250 mcg (50,000 unit) 04/24/2020 12:00:00 AM EST capsule 2 TAKE 1 CAPSULE BY MOUTH EVERY 2 WEEKS TAKE 1 CAPSULE BY MOUTH EVERY 2 WEEKS SOLD: 04/24/2020 [facility] 81 mg 04/24/2020 12:00:00 AM EST tablet,delayed release (DR/EC) 90 TAKE 1 TABLET BY MOUTH ONCE DAILY TAKE 1 TABLET BY MOUTH ONCE DAILY SOLD: 04/24/2020 [facility] Aspirin Adult Low Strength 81 MG Oral Tablet Delayed R elease Aspirin Adult Low Strength 81 MG Oral Tablet Delayed Release 2020 12:00:00 AM EST aborted Aspirin Adult Low Strength [facility] ([facility]) Ergocalciferol 26281 UNT Oral Capsule [D risdol] Drisdol 1.25 MG (45567 UT) Oral Capsule Drisdol 1.25 MG (86669 UT) Oral Capsule 2020 12:00:00 AM EST aborted ergocalciferol 1.25 MG Oral Capsule [Drisdol] [facility] ([facility]) Fenofibrate 48 MG Oral Tablet Fenofibrate 48 MG Oral Tablet 04/22/2020 12:00:00 AM EST aborted fenofibrate 48 M G Oral Tablet [facility] ([facility]) Fenofibrate 48 MG Oral Tablet FENOFIBRATE NANOCRYSTALLIZED 0 04/17/2020 12:00:00 AM EST tablet 30 TAKE ONE TABLET BY MOUTH AT BEDTIME TAKE ONE TABLET BY MOUTH AT BEDTIME SOLD: 06/26/2020 [facility] 80 mg 04/17/2020 12:00:00 AM EST tablet 30 TAKE ONE TABLET BY MOUTH AT BEDTIME TAKE ONE TABLET BY MOUTH AT BEDTIME SOLD: 06/10/2020 [facility] Fenofibrate 48 MG Oral Tablet FENOFIBRATE NANOCRYSTALLIZED 0 04/17/2020 12:00:00 AM EST tablet 30 TAKE ONE TABLET BY MOUTH AT BEDTIME TAKE ONE TABLET BY MOUTH AT BEDTIME SOLD: 05/29/2020 [facility] 80 mg 04/17/2020 12:00:00 AM EST tablet 30 TAKE ONE TABLET BY MOUTH AT BEDTIME TAKE ONE TABLET BY MOUTH AT BEDTIME SOLD: 04/22/2020 [facility] Fenofibrate 48 MG Oral Tablet FENOFIBRATE NANOCRYSTALLIZED 0 04/17/2020 12:00:00 AM EST tablet 30 TAKE ONE TABLET BY MOUTH AT BEDTIME TAKE ONE TABLET BY MOUTH AT BEDTIME SOLD: 04/22/2020 [facility] 100 mg 04/17/2020 12:00:00 AM EST tablet 90 TAKE ONE TABLET BY MOUTH EVERY DAY TAKE ONE TABLET BY MOUTH EVERY DAY SOLD: 04/22/2020 [facility] Simvastatin 80 MG Oral Tablet Simvastatin 80 MG Oral Tablet 04/16/2020 12:00:00 AM EST aborted simvastatin 80 M G Oral Tablet [facility]) Fenofibrate 48 MG Oral Tablet [Tricor] Tricor 48 MG Or al Tablet Tricor 48 MG Oral Tablet 04/16/2020 12:00:00 AM EST aborte d fenofibrate 48 MG Oral Tablet [Tricor] [facility] ([facility]) Atenolol 50 MG Oral Tablet [Tenormin] Tenormin 50 MG O ral Tablet Tenormin 50 MG Oral Tablet 04/16/2020 12:00:00 AM EST aborte d atenolol 50 MG Oral Tablet [Tenormin] [facility]) Ergocalciferol 00844 UNT Oral Capsule [D risdol] Drisdol 1.25 MG (52422 UT) Oral Capsule Drisdol 1.25 MG (30592 UT) Oral Capsule 04/16/2020 12:00:00 AM EST aborted ergocalciferol 1.25 MG Oral Capsule [Drisdol] [facility] ([facility]) Aspirin Adult Low Strength 81 MG Oral Tablet Delayed R elease Aspirin Adult Low Strength 81 MG Oral Tablet Delayed Release 04/16/2020 12:00:00 AM EST aborted Aspirin Adult Low Strength [facility] ([facility]) Hydrochlorothiazide 25 MG Oral Tablet hydroCHLOROthiaz ruth ann 25 MG Oral Tablet hydroCHLOROthiazide 25 MG Oral Tablet 04/16/2020 12:00:00 AM EST aborted hydrochlorothiazide 25 MG Oral T ablet [facility] ([facility]) Klor-Con M20 20 MEQ Oral Tablet Extended Release Klor- Con M20 20 MEQ Oral Tablet Extended Release 04/16/2020 12:00:00 AM EST aborted Microencapsulated potassium chloride 20 MEQ Extended Release Oral Tablet [Klor-Con] [facility] ([facility]) Losartan Potassium 100 MG Oral Tablet Losartan Potassium 100 MG Oral Tablet 04/16/2020 12:00:00 AM EST 1 aborted losartan potassium 100 MG Oral Tablet [facility] ([facility]) Esomeprazole 40 MG Delayed Release Oral Capsule [Nexium] NexIUM 40 MG Oral Capsule Delayed Release NexIUM 40 MG Oral Capsule Delayed Release 04/16/2020 12:00:00 AM EST aborted esomeprazole 40 MG Delayed Release Oral Capsule [Nexium] [facility] ([facility]) Metformin hydrochloride 500 MG Oral Tablet metFORMIN H Cl 500 MG Oral Tablet metFORMIN HCl 500 MG Oral Tablet 04/16/2020 12:00:00 AM EST aborted metformin hydrochloride 500 MG Oral Tablet [facility]) LANCETS 03/22/2020 12:00:00 AM EST misc 100 USE 1 LANCET TO TEST TWICE A DAY USE 1 LANCET TO TEST TWICE A DAY SOLD: 03/26/2020 [facility] BLOOD SUGAR DIAGNOSTIC 01/19/2020 12:00:00 AM EST strip 100 TEST TWO TIMES A DAY TEST TWO TIMES A DAY SOLD: 01/20/2020 [facility] BLOOD SUGAR DIAGNOSTIC 01/19/2020 12:00:00 AM EST strip 100 TEST TWO TIMES A DAY TEST TWO TIMES A DAY SOLD: 09/06/2020 [facility] Metformin hydrochloride 500 MG Oral Tablet METFORMIN HCL 01/07/2020 12:00:00 AM EST tablet 180 TAKE ONE TABLET BY MOUTH TWO TIMES A DAY TAKE ONE TABLET BY MOUTH TWO TIMES A DAY SOLD: 01/08/2020 [facility] Esomeprazole 40 MG Delayed Release Oral Capsule ESOMEPRAZOLE MAGNESIUM 01/04/2020 12:00:00 AM EST capsule,delayed release(DR/EC) 30 TAKE ONE CAPSULE BY MOUTH EVERY MORNING TAKE ONE CAPSULE BY MOUTH EVERY MORNING SOLD: 02/07/2020 [facility] Atenolol 50 MG Oral Tablet ATENOLOL 01/04/2020 12:00:00 AM EST tablet 60 TAKE ONE TABLET BY MOUTH TWO TIMES A DAY TAKE ONE TABLET BY MOUTH TWO TIMES A DAY SOLD: 03/26/2020 [facility] Esomeprazole 40 MG Delayed Release Oral Capsule ESOMEPRAZOLE MAGNESIUM 01/04/2020 12:00:00 AM EST capsule,delayed release(DR/EC) 30 TAKE ONE CAPSULE BY MOUTH EVERY MORNING TAKE ONE CAPSULE BY MOUTH EVERY MORNING SOLD: 01/07/2020 [facility] Atenolol 50 MG Oral Tablet ATENOLOL 01/04/2020 12:00:00 AM EST tablet 60 TAKE ONE TABLET BY MOUTH TWO TIMES A DAY TAKE ONE TABLET BY MOUTH TWO TIMES A DAY SOLD: 01/07/2020 [facility] Esomeprazole 40 MG Delayed Release Oral Capsule ESOMEPRAZOLE MAGNESIUM 01/04/2020 12:00:00 AM EST capsule,delayed release(DR/EC) 30 TAKE ONE CAPSULE BY MOUTH EVERY MORNING TAKE ONE CAPSULE BY MOUTH EVERY MORNING SOLD: 03/11/2020 [facility] Atenolol 50 MG Oral Tablet ATENOLOL 01/04/2020 12:00:00 AM EST tablet 60 TAKE ONE TABLET BY MOUTH TWO TIMES A DAY TAKE ONE TABLET BY MOUTH TWO TIMES A DAY SOLD: 02/19/2020 [facility] 25 mg 01/02/2020 12:00:00 AM EST tablet 30 TAKE ONE TABLET BY MOUTH ONCE DAILY TAKE ONE TABLET BY MOUTH ONCE DAILY SOLD: 05/28/2020 [facility] 48 mg 01/02/2020 12:00:00 AM EST tablet 30 TAKE ONE TABLET BY MOUTH AT BEDTIME TAKE ONE TABLET BY MOUTH AT BEDTIME SOLD: 03/26/2020 [facility] Losartan Potassium 100 MG Oral Tablet losartan (COZAAR ) 100 MG tablet losartan (COZAAR) 100 MG tablet 01/02/2020 12:00:00 AM EST 100 mg Oral active Take 100 mg by mouth daily [facility] Fenofibrate 48 MG Oral Tablet fenofibrate (TRICOR) 48 MG tablet fenofibrate (TRICOR) 48 MG tablet 01/02/2020 12:00:00 AM EST 48 mg Oral active Take 48 mg by mouth daily [facility] Fenofibrate 48 MG Oral Tablet FENOFIBRATE NANOCRYSTALLIZED 1 03/03/2019 12:00:00 AM EST tablet 30 TAKE ONE TABLET BY MOUTH AT BEDTIME TAKE ONE TABLET BY MOUTH AT BEDTIME SOLD: 01/03/2020 [facility] 20 mEq 01/02/2020 12:00:00 AM EST tablet,ER particles/cry stals 30 TAKE ONE TABLET BY MOUTH AT BEDTIME TAKE ONE TABLET BY MOUTH AT BEDTIME SOLD: 02/19/2020 [facility] Fenofibrate 48 MG Oral Tablet FENOFIBRATE NANOCRYSTALLIZED 1 03/03/2019 12:00:00 AM EST tablet 30 TAKE ONE TABLET BY MOUTH AT BEDTIME TAKE ONE TABLET BY MOUTH AT BEDTIME SOLD: 02/19/2020 [facility] 20 mEq 01/02/2020 12:00:00 AM EST tablet,ER particles/cry stals 30 TAKE ONE TABLET BY MOUTH AT BEDTIME TAKE ONE TABLET BY MOUTH AT BEDTIME SOLD: 01/03/2020 [facility] 100 mg 01/02/2020 12:00:00 AM EST tablet 90 TAKE ONE TABLET BY MOUTH ONCE DAILY TAKE ONE TABLET BY MOUTH ONCE DAILY SOLD: 01/03/2020 [facility] 20 mEq 01/02/2020 12:00:00 AM EST tablet,ER particles/cry stals 30 TAKE ONE TABLET BY MOUTH AT BEDTIME TAKE ONE TABLET BY MOUTH AT BEDTIME SOLD: 04/10/2020 [facility] 25 mg 01/02/2020 12:00:00 AM EST tablet 30 TAKE ONE TABLET BY MOUTH ONCE DAILY TAKE ONE TABLET BY MOUTH ONCE DAILY SOLD: 04/20/2020 [facility] 25 mg 01/02/2020 12:00:00 AM EST tablet 30 TAKE ONE TABLET BY MOUTH ONCE DAILY TAKE ONE TABLET BY MOUTH ONCE DAILY SOLD: 01/03/2020 [facility] Accu-Chek Yi Plus In Vitro Strip Accu-Chek Yi Plus In Vitro Strip 01/01/2020 12:00:00 AM EST aborted Accu-Chek Yi Plus [facility] ([facility]) Aspirin 81 MG Delayed Release Oral Table t [Ecotrin] Ecotrin Low Strength 81 MG Oral Tablet Delayed Release Ecotrin Low Strength 81 MG Oral Tablet D elayed Release 01/01/2020 12:00:00 AM EST aborted aspirin 81 MG Delayed Release Oral Tablet [Ecotrin] [facility] ([facility]) Ergocalciferol 27843 UNT Oral Capsule [D risdol] Drisdol 1.25 MG (17850 UT) Oral Capsule Drisdol 1.25 MG (13792 UT) Oral Capsule 01/01/2020 12:00:00 AM EST aborted ergocalciferol 1.25 MG Oral Capsule [Drisdol] [facility] ([facility]) Klor-Con M20 20 MEQ Oral Tablet Extended Release Klor- Con M20 20 MEQ Oral Tablet Extended Release 01/01/2020 12:00:00 AM EST aborted Microencapsulated potassium chloride 20 MEQ Extended Release Oral Tablet [Klor-Con] [facility]) Hydrochlorothiazide 25 MG Oral Tablet hydroCHLOROthiaz ruth ann 25 MG Oral Tablet hydroCHLOROthiazide 25 MG Oral Tablet 01/01/2020 12:00:00 AM EST aborted hydrochlorothiazide 25 MG Oral T ablet [facility] ([facility]) Losartan Potassium 100 MG Oral Tablet Losartan Potassium 100 MG Oral Tablet 01/01/2020 12:00:00 AM EST 1 aborted losartan potassium 100 MG Oral Tablet [facility] ([facility]) Simvastatin 80 MG Oral Tablet Simvastatin 80 MG Oral Tablet 01/01/2020 12:00:00 AM EST aborted simvastatin 80 M G Oral Tablet [facility] ([facility]) Metformin hydrochloride 500 MG Oral Tablet metFORMIN H Cl 500 MG Oral Tablet metFORMIN HCl 500 MG Oral Tablet 01/01/2020 12:00:00 AM EST aborted metformin hydrochloride 500 MG Oral Tablet [facility] ([facility]) Esomeprazole 40 MG Delayed Release Oral Capsule [Nexium] NexIUM 40 MG Oral Capsule Delayed Release NexIUM 40 MG Oral Capsule Delayed Release 01/01/2020 12:00:00 AM EST aborted esomeprazole 40 MG Delayed Release Oral Capsule [Nexium] [facility]) Atenolol 50 MG Oral Tablet [Tenormin] Tenormin 50 MG O ral Tablet Tenormin 50 MG Oral Tablet 01/01/2020 12:00:00 AM EST aborte d atenolol 50 MG Oral Tablet [Tenormin] [facility]) Fenofibrate 48 MG Oral Tablet [Tricor] Tricor 48 MG Or al Tablet Tricor 48 MG Oral Tablet 01/01/2020 12:00:00 AM EST aborte d fenofibrate 48 MG Oral Tablet [Tricor] [facility]) Metformin hydrochloride 500 MG Oral Tablet METFORMIN HCL 12/14/2019 12:00:00 AM EDT tablet 60 TAKE ONE TABLET BY MOUTH TWI CE A DAY TAKE ONE TABLET BY MOUTH TWICE A DAY SOLD: 04/01/2020 [facility] 80 mg 12/14/2019 12:00:00 AM EDT tablet 30 TAKE ONE TABLET BY MOUTH DAILY AT BEDTIME TAKE ONE TABLET BY MOUTH DAILY AT BEDTIME SOLD: 02/09/2020 [facility] 80 mg 12/14/2019 12:00:00 AM EDT tablet 30 TAKE ONE TABLET BY MOUTH DAILY AT BEDTIME TAKE ONE TABLET BY MOUTH DAILY AT BEDTIME SOLD: 01/12/2020 [facility] Metformin hydrochloride 500 MG Oral Tablet METFORMIN HCL 12/14/2019 12:00:00 AM EDT tablet 60 TAKE ONE TABLET BY MOUTH TWI CE A DAY TAKE ONE TABLET BY MOUTH TWICE A DAY SOLD: 12/16/2019 [facility] 80 mg 12/14/2019 12:00:00 AM EDT tablet 30 TAKE ONE TABLET BY MOUTH DAILY AT BEDTIME TAKE ONE TABLET BY MOUTH DAILY AT BEDTIME SOLD: 12/16/2019 [facility] Metformin hydrochloride 500 MG Oral Tablet METFORMIN HCL 12/14/2019 12:00:00 AM EDT tablet 60 TAKE ONE TABLET BY MOUTH TWI CE A DAY TAKE ONE TABLET BY MOUTH TWICE A DAY SOLD: 05/04/2020 [facility] Metformin hydrochloride 500 MG Oral Tablet metFORMIN H Cl 500 MG Oral Tablet metFORMIN HCl 500 MG Oral Tablet 11/15/2019 12:00:00 AM EDT aborted metformin hydrochloride 500 MG Oral Tablet [facility]) Losartan Potassium 100 MG Oral Tablet Losartan Potassium 100 MG Oral Tablet 10/18/2019 12:00:00 AM EDT 1 aborted losartan potassium [address] [facility]) 50 mg 10/10/2019 12:00:00 AM EDT tablet 60 TAKE ONE TABLET BY MOUTH TWICE A DAY TAKE ONE TABLET BY MOUTH TWICE A DAY SOLD: 12/13/2019 [facility] 40 mg 10/05/2019 12:00:00 AM EDT capsule,delayed release (DR/EC) 30 TAKE ONE CAPSULE BY MOUTH EVERY MORNING TAKE ONE CAPSULE BY MOUTH EVERY MORNING SOLD: 04/10/2020 [facility] Esomeprazole 40 MG Delayed Release Oral Capsule ESOMEPRAZOLE MAGNESIUM 10/05/2019 12:00:00 AM EDT capsule,delayed release(DR/EC) 30 TAKE ONE CAPSULE BY MOUTH EVERY MORNING TAKE ONE CAPSULE BY MOUTH EVERY MORNING SOLD: 12/13/2019 [facility] 1,250 mcg (50,000 unit) 10/03/2019 12:00:00 AM EDT capsule 2 TAKE ONE CAPSULE BY MOUTH EVERY 2 WEEKS TAKE ONE CAPSULE BY MOUTH EVERY 2 WEEKS SOLD: 03/26/2020 [facility] 1,250 mcg (50,000 unit) 10/03/2019 12:00:00 AM EDT capsule 2 TAKE ONE CAPSULE BY MOUTH EVERY 2 WEEKS TAKE ONE CAPSULE BY MOUTH EVERY 2 WEEKS SOLD: 01/29/2020 [facility] Klor-Con M20 20 MEQ Oral Tablet Extended Release Klor- Con M20 20 MEQ Oral Tablet Extended Release 10/02/2019 12:00:00 AM EDT aborted Microencapsulated potassium chloride 20 MEQ Extended Release Oral Tablet [Klor-Con] [facility]) Hydrochlorothiazide 25 MG Oral Tablet hydroCHLOROthiaz ruth ann 25 MG Oral Tablet hydroCHLOROthiazide 25 MG Oral Tablet 10/02/2019 12:00:00 AM EDT aborted hydrochlorothiazide 25 MG Oral T ablet [facility] ([facility]) Accu-Chek Soft Touch Lancets Miscellaneous Accu-Chek S oft Touch Lancets Miscellaneous 10/02/2019 12:00:00 AM EDT abor rufino Accu-Chek Soft Touch Lancets [facility] ([facility]) Ergocalciferol 49957 UNT Oral Capsule [D risdol] Drisdol 1.25 MG (76916 UT) Oral Capsule Drisdol 1.25 MG (14050 UT) Oral Capsule 10/02/2019 12:00:00 AM EDT aborted ergocalciferol 1.25 MG Oral Capsule [Drisdol] [facility] ([facility]) Atenolol 50 MG Oral Tablet [Tenormin] Tenormin 50 MG O ral Tablet Tenormin 50 MG Oral Tablet 10/02/2019 12:00:00 AM EDT aborte d atenolol 50 MG Oral Tablet [Tenormin] [facility] ([facility]) Simvastatin 80 MG Oral Tablet Simvastatin 80 MG Oral Tablet 10/02/2019 12:00:00 AM EDT aborted simvastatin 80 M G Oral Tablet [facility] ([facility]) Metformin hydrochloride 500 MG Oral Tablet metFORMIN H Cl 500 MG Oral Tablet metFORMIN HCl 500 MG Oral Tablet 10/02/2019 12:00:00 AM EDT aborted metformin hydrochloride 500 MG Oral Tablet [facility]) Esomeprazole 40 MG Delayed Release Oral Capsule [Nexium] NexIUM 40 MG Oral Capsule Delayed Release NexIUM 40 MG Oral Capsule Delayed Release 10/02/2019 12:00:00 AM EDT aborted esomeprazole 40 MG Delayed Release Oral Capsule [Nexium] [facility] ([facility]) Losartan Potassium 50 MG Oral Tablet Losartan Potassium 50 M G Oral Tablet 10/02/2019 12:00:00 AM EDT aborted losartan potassium [address] [facility]) Fenofibrate 48 MG Oral Tablet [Tricor] Tricor 48 MG Or al Tablet Tricor 48 MG Oral Tablet 10/02/2019 12:00:00 AM EDT aborte d fenofibrate 48 MG Oral Tablet [Tricor] [facility]) BLOOD SUGAR DIAGNOSTIC 09/05/2019 12:00:00 AM EDT strip 100 TEST TWO TIMES A DAY TEST TWO TIMES A DAY SOLD: 10/23/2019 [facility] BLOOD SUGAR DIAGNOSTIC 09/05/2019 12:00:00 AM EDT strip 100 TEST TWO TIMES A DAY TEST TWO TIMES A DAY SOLD: 12/11/2019 [facility] Accu-Chek Yi Plus In Vitro Strip Accu-Chek Yi Plus In Vitro Strip 09/04/2019 12:00:00 AM EDT aborted Accu-Chek Yi Plus [facility] ([facility]) 80 mg 08/17/2019 12:00:00 AM EDT tablet 30 TAKE ONE TABLET BY MOUTH DAILY AT BEDTIME TAKE ONE TABLET BY MOUTH DAILY AT BEDTIME SOLD: 11/13/2019 [facility] 81 mg 08/15/2019 12:00:00 AM EDT tablet,delayed release (DR/EC) 30 TAKE ONE TABLET BY MOUTH EVERY DAY TAKE ONE TABLET BY MOUTH EVERY DAY SOLD: 11/15/2019 [facility] Aspirin 81 MG Delayed Release Oral Table t [Ecotrin] Ecotrin Low Strength 81 MG Oral Tablet Delayed Release Ecotrin Low Strength 81 MG Oral Tablet D elayed Release 08/15/2019 12:00:00 AM EDT aborted aspirin 81 MG Delayed Release Oral Tablet [Ecotrin] [facility] ([facility]) Fenofibrate 67 MG Oral Capsule fenofibrate micronized (LOFIBRA) 67 MG capsule fenofibrate micronized (LOFIBRA) 67 MG capsule 48 mg Oral aborted Take 48 mg by mouth every morning before breakfast [facility] Losartan Potassium 25 MG Oral Tablet losartan (COZAAR) 25 MG tablet losartan (COZAAR) 25 MG tablet 50 mg Oral aborted Ta ke 50 mg by mouth daily [facility] Insurance Providers Payer name Policy type / Coverage type Policy ID Covered alliance party ID Covered alliance party's relationship to hung Policy Hung Plan Information Medicare [place] of [place] Medicare Primary 0 [id number] Self 0 Medicare [place] Medicare Primary 0 [id number] Self 0 [employer] PPO [id number] SP [id number] Medicare [place] Medicare Primary 0 [id number] Self 0 [employer] PPO [id number] SP [id number] Medicare [place] Medicare Primary 0 [id number] Self 0 Medicare [place] Medicare Primary 0 [id number] Self 0 Medicare [place] Medicare Primary 0 [id number] Self 0 Medicare [place] Medicare Primary 0 [id number] Self 0 Medicare [place] Medicare Primary 0 [id number] Self 0 MEDICARE [id number] [facility] [id number] Medicare Part [place] of [place] Medicare Primary 0 [id number] Self 0 Medicare Part [place] of [place] Medicare Primary 0 [id number] Self 0 MEDICARE [id number] A MEDICAID [id number] SP [id number] MEDICAID [id number] SP [id number] MEDICAID [id number] SP [id number] MEDICAID [id number] Madeleine [id number] MEDICAID [id number] [id number] [place] [id number] SP [id number] EMEDNY [id number] SP [id number] MEDICAID [id number] SP [id number] [employer] MEDICARE [id number] Madeleine [id number] HU[employer]NA MEDICARE [id number] [phone] [phone] Hum[employer] Care Plan Other 0 [id number] Self 0 Medicaid of [place] Supplemental Policy 0 [id number] Self 0 Humana Care Plan Other 0 [id number] Self 0 [place] Supplemental Policy 0 [id number] Self 0 [employer] Care Plan Other 0 [id number] Self 0 MEDICARE PART A-O/P [id number] 18 [id number] Medicaid [facility] Supplemental Policy 0 [id number] Self 0 Hum[employer] Care Plan Other 0 [id number] Self 0 Medicare Part B of [facility] Medicare Primary 0 [id number] Self 0 [place] Supplemental Policy 0 [id number] Self 0 Hum[employer] Care Plan Other 0 [id number] Self 0 Medicare Part B of [facility] Medicare Primary 0 [id number] Self 0 [place] 0 [id number] Self 0 [place] [id number] 18 [id number] MEDICARE PART A [facility] [id number] 18 [id number] [place] Primary [id number] Self [id number] Medicare [place] Medicare Primary [id number] Self [id number] [place] 0 [id number] Self 0 [place] 0 [id number] Self 0 [place] 0 [id number] Self 0 S ADMINISTRATORS, [facility] [id number] S [id number] MEDICAID M [id number] S [id number] MEDICARE C [id number] S [id number] A [facility] C [id number] S [id number] [place] 0 [id number] Self 0 [place] MEDICARE PART B C [id number] S [id number] [place] 0 [id number] Self 0 [place] 0 [id number] Self 0 [place] 0 [id number] Self 0 [place] 0 [id number] Self 0 [place] 0 [id number] Self 0 MEDICAID - O/P EMERGENCY ROOM [id number] 18 [id number] MEDICARE -O/P [id number] 18 [id number] MEDICAID-O/P RAD [id number] HUMANA GOLD [id number] SP [id number] HU[employer]NA GOLD PLUS -O/P [id number] 18 [id number] HU[employer]NA GOLD [id number] SP [id number] [place] Supplemental Policy 0 [id number] Self 0 Hum[employer] Care Plan Other 0 [id number] Self 0 [place] 0 [id number] Self 0 Hum[employer] Care Plan Other 0 [id number] Self 0 [place] 0 [id number] Self 0 Hum[employer] Care Plan Other 0 [id number] Self 0 [place] 0 [id number] Self 0 Hum[employer] Care Plan Other 0 [id number] Self 0 [place] Supplemental [place] 0 [id number] Self 0 Hum[employer] Care Plan Other 0 [id number] Self 0 MEDICAID-O/P [id number] 18 [id number] MEDICARE PART A-O/P [id number] 18 [id number] [facility] [place]ICAID [place] [id number] 18 [id number] HUMANA MEDICARE HMO HM [id number] 18 [id number] [place] Supplemental Policy 0 [id number] Self 0 [employer] Care Plan Other 0 [id number] Self 0 [place] Supplemental [place] 0 [id number] Self 0 Hum[employer] Care Plan Other 0 [id number] Self 0 [place] 0 [id number] Self 0 Hum[employer] Care Plan Other 0 [id number] Self 0 [place] Supplemental Policy 0 [id number] Self 0 Problems, Conditions, and Diagnoses Code Display Name Description Problem Type Effective Dates Data Source(s) Z7982 manager intermediate (current) use of aspirin manager intermediate (cu rrent) use of aspirin Diagnosis 12/13/2020 07:59:00 AM EDT [facility] I10 Essential (primary) hypertension Essential (primary) h ypertension Diagnosis 12/13/2020 07:59:00 AM EDT [facility] J0390 Acute tonsillitis, unspecified Acute tonsillitis, unsp ecified Diagnosis 12/13/2020 07:59:00 AM EDT [facility] J029 Acute pharyngitis, unspecified Acute pharyngitis, unsp ecified Diagnosis 12/13/2020 07:59:00 AM EDT [facility] Z98.61 Coronary angioplasty status Coronary angioplasty statu s Diagnosis 08/18/2020 01:16:41 PM EDT [facility] I10 Essential (primary) hypertension Essential (primary) h ypertension Diagnosis 08/18/2020 01:16:41 PM EDT [facility] E78.5 Hyperlipidemia, unspecified Hyperlipidemia, unspecifie d Diagnosis 08/18/2020 01:16:41 PM EDT [facility] 705.21 Hyperhidrosis Hyperhidrosis Problem 01/01/2020 12:00:00 AM [facility] ([facility]) 705.21 Hyperhidrosis Hyperhidrosis Problem 01/01/2020 12:00:00 AM [facility] ([facility]) 705.21 Hyperhidrosis Hyperhidrosis Problem 01/01/2020 12:00:00 AM [facility] ([facility]) 705.21 Hyperhidrosis Hyperhidrosis Problem 01/01/2020 12:00:00 AM [facility] ([facility]) Surgeries/Procedures Procedure Description Date Indications Data Source(s) HbA1c (Glycosolated) HbA1c (Glycosolated) 10/09/2020 12:00:00 AM ED T [facility] ([facility]) HbA1c (Glycosolated) (waived laboratory) HbA1c (Glycos olated) (waived laboratory) 07/14/2020 12:00:00 AM EDT [facility] ([facility]) COLLECTION VENOUS BLOOD VENIPUNCTURE BLOOD DRAW 07/14/2020 12:00: 00 AM EDT [facility] ([facility]) HbA1c (Glycosolated) HbA1c (Glycosolated) 07/14/2020 12:00:00 AM ED T [facility] ([facility]) ECG ROUTINE ECG W/LEAST 12 LDS W/I&R <td>POCT AMB EKG</td><td>Routine</td><td>02/12/2020 1:41 PM EST</td><td> Coronary angioplasty status</td><td> </td> 02/12/2020 06:41:00 PM EST Coronary angioplasty status [facility] Coronary angioplasty status Results ID Date Data Source [id number] 12/13/2020 07:59:00 AM EDT [facility] 1 OrderSheet [facility] Emergency Department [address] [place] [address] Phone #: ext- [phone] 12/13/2020 07:56 Patient: TERESA WICK Sex: M : 1940 Age: 80yWEIGHT:108.8 kg (S) HEIGHT:67 inches (S) BMI:37.6ALLERGIES: No Known Drug AllergyCHIEF COMPLAINT: sore throatDIAGNOSIS: TonsillitisLAB ORDERSOrder Description Priority Entered Acknowledged InitialedRapid Strep Screen STAT 08:02 12/13/2020 08:08 Ming Fischer, Gisele Wilcox RN ;Culture, Throat STAT 08:02 12/13/2020 08:08 Gisele Larsen RN ;DIAGNOSTIC STUDY ORDER SOrder Description Priority Entered Acknowledged InitialedMEDICATION/IV/DRIP/FLUID ORDERSOrder Description Priority Entered Acknowledged InitialedGENERAL ORDERSOrder Description Priority Entered Acknowledged Initialed[Electronically signed by Ming Wilcox RN (10:50 12/13/2020)][Electronically signed by Gisele Fischer (13:44 12/13/2020)][Electronically locked by Ming Wilcox RN (10:50 12/13/2020)] Name Value Range Interpretation Code Description Data Dayna rce(s) Supporting Document(s) ID Date Data Source [id number] 12/13/2020 07:59:00 AM EDT [facility] 1 Medication Reconciliation Report [facility] Emergency Department [address] [place] [address] Phone #: ext- [phone] 12/13/2020 07:56 Patient: TERESA WICK Sex: M : 1940 Age: 80yWeight: 108.8 kgHeight/Length: 67 in.BMI: 37.6ALLERGIES: No Known Drug AllergyThe patient's Home Medications are listed below:CONTINUE TAKING THE FOLLOWING MEDICATIONS: Aspirin EC Oral (81 mg) 1 tablet, daily, last dose: 666228 9302 Atenolol Oral (50 mg) 1 tablet, 2x a day, last dose: 768961 7657 Esomeprazole Magnesium Oral (40 mg) 1 capsule, daily, last dose: 5080227 Fenofibrate Oral (48 mg) 1 tablet, bedtime, last dose: 5070226 Hydrochlorothiazide Oral (25 mg) 1 tablet, daily, last dose: 566179 0682 Losartan Potassium Oral (50 mg) 1 tablet, daily, last dose: 580624 8660 Potassium Chloride ER Oral (20 meq) 1 tablet, bedtime, last dose: 835158 7149 Travatan Z Ophthalmic (0.004 %) 1 drop, last dose: 5070226 Vitamin D Oral 66799 units, every two weeksThe source(s) of the original Home Medication information:Not obtained.The following Medications were given to the patient in the Emergency Department:None.The following Medications were prescribed to the patient:None. Name Value Range Interpretation Code Description Data Dayna e(s) Supporting Document(s) ID Date Data Source [id number] 12/13/2020 07:59:00 AM EDT [facility] 1 Medication Administration Record [facility] Emergency Department [address] [place] [address] Phone #: ext- [phone] 12/13/2020 07:56 Patient: TERESA WICK Sex: M : 1940 Age: 80yWeight: 108.8 kgHeight/Length: 67 inBMI: 37.6ALLERGIES: No Known Drug AllergyDate/Time Medication Administered Medication Ordered Name Value Range Interpretation Code Description Data [facility](s) Supporting Document(s) ID Date Data Source [id number] 12/13/2020 07:59:00 AM EDT [facility] 1 General Instructions [facility] Emergency Department [address] [place] [address] Bernadette ne #: ext- [phone] 12/13/2020 07:56 Patient: TERESA WICK Sex: M : 1940 Age: 80yAcute viral tonsillitis. No recurrent tonsillitis.INSTRUCTIONS(the rapid strep was negative. gargle with warm salt solution and take cepacol lozenges for thesorethroat. follow up with your doctor on tuesday if symptoms worsen).Your Current Medications: Your current home medications have been reviewed.CONTINUE TAKING THE FOLLOWING MEDICATIONS:Aspirin EC Oral : Tablet Delayed Release 81 mg, 1 tablet daily, Last: 5080227.Atenolol Oral : Tablet 50 mg, 1 tablet 2x a day, Last: 5080227.Esomeprazole Magnesium Oral : Capsule Delayed Release 40 mg, 1 capsule daily, Last: 5080227.Fenofibrate Oral : Tablet 48 mg, 1 tablet bedtime, Last: 5070226.Hydrochlorothiazide Oral : Tablet 25 mg, 1 tablet daily, Last: 5080227.Losartan Potassium Oral : Tablet 50 mg, 1 tablet daily, Last: 5070226.Potassium Chloride ER Oral : Tablet Extended Release 20 meq, 1 tablet bedtime, Last: 5070226.Travatan Z Ophthalmic : Solution 0.004 %, 1 drop, Last: 5070226.Vitamin D Oral : 79772 units every two weeks.Follow- up:Follow up with your healthcare provider Tuesday. Reason for referral: evaluation. Summary of careprovided to patient via paper. Blood pressure screening was not performed during this visit because thepatient has an active diagnosis of hypertension. The patient should follow up with a primary care providerfor blood pressure management. ADDITIONAL INFORMATIONAcute Viral Pharyngitis (Sore Throat) 2 General Instructions [facility] Emergency Department [address] [place] [address] Phone #: ext- [phone] 12/13/2020 07:56 Patient: TERESA WICK Sex: M : 1940 Age: 80yYou or your child have a sore throat (pharyngitis). This infection is caused by a virus. It can causethroat pain that is worse when swallowing, aching all over, headache, and fever. The infection may bespread by coughing, kissing, or touching others after touching your mouth or nose. Antibioticmedicines don't work against viruses. They are not used for treating this illness.Home care If symptoms are severe, you or your child should rest at home. Return to work or school when you, or your child, feel well enough. You or your child should drink plenty of fluids to prevent dehydration. Adults, and children 5 years and older, can use throat lozenges or numbing throat sprays to help reduce pain. Gargling with warm salt water will also help reduce throat pain. Dissolve 02/22 3 General Instructions [facility] Emergency Department [address] [place] [address] Phone #: ext- [phone] 12/13/2020 07:56 Patient: TERESA WICK Sex: M : 1940 Age: 80y teaspoon of salt in 1 glass of warm water. Children can sip on juice or an ice pop. Children 5 years and older can also suck on a lollipop or hard candy. (Hard candy and lozenges can be a choking hazard in children younger than 5 years.) Don't eat salty or spicy foods or give them to your child. These can be irritating to the throat.Medicines for a child: You can give your child acetaminophen for fever, fussiness, or discomfort. Inbabies over 6 months of age, you may use ibuprofen as well as acetaminophen. If your child haschronic liver or kidney disease or ever had a stomach ulcer or gastrointestinal bleeding, talk with yourchild's healthcare provider before giving these medicines. Aspirin should never be used by any childunder 18 years of age who has a fever. It may cause severe liver damage and . Don't give yourchild any other medicine without first asking your child's healthcare provider, especially the first time.Medicines for an adult: You may use acetaminophen, naproxen, or ibuprofen to control pain orfever, unless another medicine was prescribed for this. If you have chronic liver or kidney disease orever had a stomach ulcer or gastrointestinal bleeding, talk with your healthcare provider before usingthese medicines.Follow-up careFollow up with a healthcare provider or as advised if you or your child are not getting better over thenext week.When to get medical adviceCall your healthcare provider right away if any of these occur: Fever (see Fever and children, below) New or worsening ear pain, sinus pain, or headache Painful lumps in the back of neck Stiff neck Lymph nodes are getting larger Can't open mouth wide due to throat pain New rash Other symptoms are getting worseCall 911Call 911 or get medical care right away if any of these occur: 4 General Instructions [facility] Emergency Department [address] [place] [address] Phone #: ext- [phone] 12/13/2020 07:56 Patient: TERESA WICK Sex: M : 1940 Age: 80y Trouble breathing or noisy breathing Muffled voice Can't swallow liquids, a lot of drooling, or any other symptoms that may mean worsening swelling in the throat Signs of dehydration such as very dark urine or no urine, sunken eyes, dizzinessFever and childrenUse a digital thermometer to check your child's temperature. Don't use a mercury thermometer.There are different kinds and uses of digital thermometers. They include: Rectal. For children younger than 3 y ears, a rectal temperature is the most accurate. Forehead (temporal). This works for children age 3 months and older. If a child under 3 months old has signs of illness, this can be used for a first pass. The provider may want to confirm with a rectal temperature. Ear (tympanic). Ear temperatures are accurate after 6 months of age, but not before. Armpit (axillary). This is the least reliable but may be used for a first pass to check a child of any age with signs of illness. The provider may want to confirm with a rectal temperature. Mouth (oral). Don't use a thermometer in your child's mouth until he or she is at least 4 years old.Use the rectal thermometer with care. Follow the product maker's directions for correct use. Insert itgently. Label it and make sure it's not used in the mouth. It may pass on germs from the stool. If youdon't feel OK using a rectal thermometer, ask the healthcare provider what type to use instead. Whenyou talk with any healthcare provider about your child's fever, tell him or her which type you used.Below are guidelines to know if your young child has a fever. Your child's healthcare provider maygive you different numbers for your child. Follow your provider's specific instructions.Fever readings for a baby under 3 months old: First, ask your child's healthcare provider how you should take the temperature. Rectal or forehead: 100.4F (38C) or higher Armpit: 99F (37.2C) or higherFever readings for a child age 3 months to 36 months (3 years): Rectal, forehead, or ear: 102F (38.9C) or higher Armpit: 101F (38.3C) or higher 5 General Instructions [facility] Emergency Department [address] [place] [address] Phone #: ext- [phone] 12/13/2020 07:56 Patient: TERESA WICK Sex: M : 1940 Age: 80yCall the healthcare provider in these cases: Repeated temperature of 104F (40C) or higher in a child of any age Fever of 100.4 or higher in baby younger than 3 months Fever that lasts more than 24 hours in a child under age 2 Fever that lasts for 3 days in a child age 2 or older 9130-6591 [employer]. [address] [place] [address] 23151. All rights reserved. This information is not intended as asubstitute for professional medical care. Always follow your healthcare professional's instructions. You have been given the following additional information: Pharyngitis, Viral(Electronically signed by Gisele Fischer 12/13/2020 13:44) Name Value Range Interpretation Code Description Data Dayna rce(s) Supporting Document(s) ID Date Data Source [id number] 12/13/2020 07:59:00 AM EDT [facility] 1 Clinical Report - Nurses [facility] Emergency Department [address] [place] [address] Phone #: ext- [phone] 12/13/2020 07:56 Patient: TERESA WICK Sex: M : 1940 Age: 80yTRIAGEArrived by private vehicle. Historian: patient. Accompanied by family.Acuity: LEVEL 4.Chief Complaint: SORE THROAT and (swollen glands).Onset. (1 weeks ago). ( pt states he has had a sore throat and feels that his glands are also swollen andnot getting any better).Treatment CUSTOMER SERVICE VOICE:Took Tylenol. (0630).SEPSIS SCREEN: SIRS SCREEN NEGATIVE. SEPSIS SCREEN NEGATIVE. No suspected or confirmedsigns of infection present.STEF COMA SCORE: 15- eyes open- spontaneous (4); best verbal response- oriented (5); bestmotor response- obeys commands (6). --08:04 12/13/20 Ming Wilcox RN07:59 12/13/20. BP: 145/68. MAP: 93. HR: 68. RR: 18. O2 saturation: 99%. Temp: 98 F (oral). Pain levelnow: 11/30. --08:04 12/13/20 Ming Wilcox RN.Weight: 108.8 kg stated. Height/Length: 67 inches Per Patient. BMI: 37.6. --07:59 12/13/20 Ming Wilcox RN.MedicationsAspirin EC Oral (Tablet Delayed Release 81 mg) 1 tablet, daily, last dose 353258 1693. Atenolol Oral (Tablet 50 mg) 1 tablet, 2x a day, last dose 823251 2744. Esomeprazole Magnesium Oral (Capsule Delayed Release 40 mg) 1 capsule, daily, last dose 0500499088. Fenofibrate Oral (Tablet 48 mg) 1 tablet, bedtime, last dose 669949 6876. Hydrochlorothiazide Oral (Tablet 25 mg) 1 tablet, daily, last dose 758291 0393. Losartan Potassium Oral (Tablet 50 mg) 1 tablet, daily, last dose 364390 2258. Potassium Chloride ER Oral (Tablet Extended Release 20 meq) 1 tablet, bedtime, last dose 1861309988. --08:12/13/20 Ming Wilcox RN Travatan Z Ophthalmic (Solution 0.004 %) 1 drop, last dose 835400 8033. Vitamin D Oral 79426 units, every two weeks. --08:12/13/20 Ming Wilcox RN.AllergiesNo Known Drug Allergy. --08:12/13/20 Ming Wilcox RN. 2 Clinical Report - Nurses [facility] Emergency Department [address] [place] [address] Phone #: ext- [phone] 12/13/2020 07:56 Patient: TERESA WICK Sex: M : 1940 Age: 80y History PAST MEDICAL HX: Immunizations: up-to-date. SOCIAL HX: Never smoker. Alcohol use. No drug use. He was offered HIV testing but declined and hepatitis C testing but declined. He has not traveled outside the [place] Infectious disease exposure: No infectious disease exposure. The patient was not exposed to Coronavirus. SELF HARM ASSESSMENT: Self harm assessment was performed. The patient answered "no" to the question(s) "Have you recently felt down, depressed, or hopeless?", "Do you have thoughts of harming or killing yourself?", "Do you have a plan for harming or killing yourself?", "Have you recently had thoughts about harming or killing others?", "Do you have any dangerous items in your possession?", "Have you noticed less interest or pleasure in doing things?", "Are you here because you tried to hurt yourself?" and "Have you ever tried to hurt yourself before today?". ABUSE ASSESSMENT: No report of abuse. NUTRITIONAL RISK ASSESSMENT: The nutritional risk assessment revealed no deficiencies. FUNCTIONAL ASSESSMENT: Functional assessment: no impairments noted. LEARNING NEEDS ASSESSMENT: The learning needs assessment revealed no barriers. FALL RISK ASSESSMENT: Fall risk assessment completed. No risk factors identified. SKIN INTEGRITY ASSESSMENT: Skin integrity risk assessment completed. No skin integrity risk identified. --08:12/13/20 Ming Wilcox RN. Interventions Identification band on patient. To treatment room. --08:12/13/20 Ming Wilcox RN.PHYSICAL ASSESSMENTAmbulatory to room.GENERAL / NEURO / PSYCH: Alert. Oriented X 4. Appears in pain.HEENT: Pupils equal, round and reactive to light. Posterior pharyngeal erythema. Pharynx within normallimits. Voice within normal limits. Mouth within normal limits upon inspection. No dental injury noted.Mucous membranes are pink.RESPIRATORY: Respirations not labored.CVS: Capillary refill less than 2 seconds.SKIN: Skin is warm and dry. Normal skin turgor. --08:12/13/20 Ming Wilcox RN.NURSING PROG RESS NOTESNIBP monitor and pulse oximeter placed on patient; monitor alarms on. Patient gowned. Head of bedelevated. Reassurance given. Patient ID band checked for patient name and birthdate: patientconfirmed. Throat swab obtained by nurse for rapid strep; labeled in the presence of the patient and sent tolab. Call light placed in reach. Side rails up x 2. Bed placed in lowest position. Brakes of bed on. 3 Clinical Report - Nurses [facility] Emergency Department [address] [place] [address] Phone #: ext- [phone] 12/13/2020 07:56 Patient: TERESA WICK [facility]#: [id number] Sex: M : 1940 Age: 80y Patient ready for evaluation- ED physician notified. --08:09 12/13/20 Ming Wilcox RN digital media planner placed on patient; men's basketball coach- Lead II; monitor alarms on. --08:16 12/13/20 Ming Wilcox RN 09:00 12/13/20. BP: 148/73. MAP: 98. HR: 70. RR: 18. O2 saturation: 98%. --10:09 12/13/20 [facility] [place] Tech1.DISPOSITION / DISCHARGE 10:09 12/13/20. BP: 155/78. HR: 68. RR: 19. O2 saturation: 98%. Temp: 98.6 F. Pain level now 610. --10:09 12/13/20 [place] [facility] [place] Tech1 10:47 12/13/20. Condition at departure: improved and stable. Discharge instructions provided and reviewed with the patient. Patient verbalized understanding. Written instructions provided in [place]. The patient was discharged by the physician. He was discharged home and accompanied by family. He left ambulatory and via private vehicle. Family member driving. --10:49 12/13/20 Ming Wilcox RN.Locked/Released at 12/13/2020 10:50 by Ming Wilcox RN Name Value Range Interpretation Code Description Data Dayna rce(s) Supporting Document(s) ID Date Data Source [id number] 12/13/2020 07:59:00 AM EDT [facility] 1 Clinical Report - Physicians/Mid Levels [facility] Emergency Department [address] [place] [address] Phone #: ext- [phone] 12/13/2020 07:56 Patient: TERESA WICK Sex: M : 1940 Age: 80y Time Seen: 08:01 12/13/2020; initial patient contact, initial documentation. Arrived- By private vehicle. Historian- patient. Disposition decision: 09:57 12/13/2020.HISTORY OF PRESENT ILLNESS Chief Complaint: SORE THROAT. swollen glands. This started 4 days ago and is still present (persistent). It was gradual in onset. Pain described as mild. The patient has had a sore throat. No mouth sores, nasal discharge or congestion, ear pain or toothache. No swollen jaw or face, jaw pain or facial pain.REVIEW OF SYSTEMSNo fever, eye discomfort, cough, difficulty breathing or chest pain. No nausea, diarrhea, abdominal pain,difficulty with urination or headache. No fainting episodes, joint pain, skin rash or vomiting. The patienthas had enlarged lymph nodes. All other systems reviewed and are negative.PAST HISTORYSee nurses notes. Problems: Gastroesophageal Reflux Disease. Cataracts. Hypercholesterolemia. Weakness. Hypertension. Additional Surgeries: Appendectomy. Cholecystectomy. 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 Medications: Travatan Z Ophthalmic (Solution 0.004 %) 1 drop, last dose 995311 9543. Vitamin D Oral 24413 units, every two weeks. Aspirin EC Oral (Tablet Delayed Release 81 mg) 1 tablet, daily, last dose 366094 2537. Atenolol Oral (Tablet 50 mg) 1 tablet, 2x a day, last dose 846900 9008. Esomeprazole Magnesium Oral (Capsule Delayed Release 40 mg) 1 capsule, daily, last dose 499998 5371. Fenofibrate Oral (Tablet 48 mg) 1 tablet , bedtime, last dose 269425 1200. Hydrochlorothiazide Oral (Tablet 25 mg) 1 tablet, daily, last dose [id number]. Losartan Potassium Oral (Tablet 50 mg) 1 tablet, daily, last dose [id number]. Potassium Chloride ER Oral (Tablet Extended Release 20 meq) 1 tablet, bedtime, last dose [id number] Clinical Report - Physicians/Mid Levels [facility] Emergency Department [address] [place] [address] Phone #: ext- [phone] 12/13/2020 07:56 Patient: TERESA WICK Sex: M : 1940 Age: 80y 2100. Allergies: No Known Drug Allergy.SOCIAL HISTORYNever smoker. No alcohol use or drug use.ADDITIONAL NOTESThe nursing notes have been reviewed.PHYSICAL EXAMVital Signs: 12/13/2020 07:59 BP: 145/68. MAP: 93. HR: 68. RR: 18. O2 saturation: 99%. Temp: 98 F.Pain level now: 11/30. Have been reviewed. Oxygen saturation normal.Appearance: Alert. No acute distress.Head: Normal external inspection.Eyes: Pupils equal, round and reactive to light. Conjunctivae and eyelids normal.ENT: Ears normal. Nose normal. Pharyngeal erythema. Lips normal. Gums normal. No trismuspresent. Uvula midline. No mouth ulcerations, tonsillar exudate, peritonsillar mass or drooling. Themucous membranes are not dry.Neck: Normal inspection. Mild right anterior neck lymphadenopathy present. Trachea midline. Thyroidnormal. Neck supple. No thyromegaly or meningeal signs.CVS: Normal heart rate and rhythm. Heart sounds normal. Pulses normal.Respiratory: No respiratory distress. Painless inspiration. Breath sounds normal. Chest nontender.Abdomen: Soft and nontender. No organomegaly.Skin: Normal skin color. No rash. Normal skin turgor.Extremities: Extremities nontender.Neuro: Oriented X 3.LABS, X-RAYS, AND EKGLaboratory Tests: Rapid Strep Screen: (CHENCHO: 12/13/2020 08:10) ( MsgRcvd 12/13/2020 08:49) Final results Test Result Flag Units (Reference) RAPID STREP NEGATIVE (NORMAL: NEGAT RAPID STREP REENTER NEGATIVE (NORMAL: NEGAT { PROCEDURAL CONTROL VALID ){ KIT LOT # [id number] ){ KIT EXP DATE 03.20.22 )The Strep A 2 assay utilizes isothermal nucleic acid amplification technology fothe qualitative detection of Group A Strep bacterial nucleic acid in throat swabspecimens.All negative test results no longer need to be confirmed with a culture. Follow-up testing requiring a culture is necessary if clinical symptoms persist, or inthe event of an acute rheumatic fever outbreak. A culture will need to beordered by the Qualified Medical Provider.Negative results do not preclude infection with Group A Strep and should not beused as the sole basis for treatment. Culture, Throat: (CHENCHO: 12/13/2020 08:02) ( MsgRcvd 12/13/2020 08:11) Canceled SOURCE: Throat 3 Clinical Report - Physicians/Mid Levels [facility] Emergency Department [address] [place] [address] Phone #: ext- [phone] 12/13/2020 07:56 Patient: TERESA WICK Sex: M : 1940 Age: 80y.PROGRESS AND PROCEDURESCourse of Care: 09:55 12/13/20. 80 y/o male presents to the ER with complaint of sore throat as well asswollen cervical glands. denies fevers, chills, cough, ear pain or sinus congestion. on exam he haderythematous TP downs, no swollen or tender cervical lymphadenopathy. no rhinorrhea and no fevers.rapid strep was normal discharged home and advised to gargle with warm salt solution and take cepacollozenges for sorethroat and follow up with PMD on tuesday if not better. Patient counseled in person regarding the patient's stable condition, test results, diagnosis and need for follow-up. Patient agrees with plan of care. 09:57. Disposition: Discharged h ome in good condition (09:57). Condition: good and stable. Discharge decision based on the following: patient's condition is stable; patient is ambulatory; patient's exam is stable; no abnormal test results; social support is adequate; transportation is available; follow-up is available; clinical impression is consistent with outpatient treatment.CLINICAL IMPRESSION Acute viral tonsillitis. No recurrent tonsillitis.INSTRUCTIONS (the rapid strep was negative. gargle with warm salt solution and take cepacol lozenges for the sorethroat. follow up with your doctor on tuesday if symptoms worsen). Your Current Medications: Your current home medications have been reviewed. CONTINUE TAKING THE FOLLOWING MEDICATIONS: Aspirin EC Oral : Tablet Delayed Release 81 mg, 1 tablet daily, Last: 5080227. Atenolol Oral : Tablet 50 mg, 1 tablet 2x a day, Last: 5080227. Esomeprazole Magnesium Oral : Capsule Delayed Release 40 mg, 1 capsule daily, Last: 5080227. Fenofibrate Oral : Tablet 48 mg, 1 tablet bedtime, Last: 5070226. Hydrochlorothiazide Oral : Tablet 25 mg, 1 tablet daily, Last: 5080227. Losartan Potassium Oral : Tablet 50 mg, 1 tablet daily, Last: 5070226. Potassium Chloride ER Oral : Tablet Extended Release 20 meq, 1 tablet bedtime, Last: 5070226. Travatan Z Ophthalmic : Solution 0.004 %, 1 drop, Last: 5070226. Vitamin D Oral : 75232 units every two weeks. Follow-up: Follow up with your healthcare provider Tuesday. Reason for referral: evaluation. Summary of care provided to patient via paper. Blood pressure screening was not performed during this visit because the patient has an active diagnosis of hypertension. The patient should follow up with a primary care provider for blood pressure management. 4 Clinical Report - Physicians/Mid Levels [facility] Emergency Department [address] [place] [address] Phone #: ext- [phone] 12/13/2020 07:56 Patient: TERESA WICK Sex: M : 1940 Age: 80y(Electronically signed by Gisele Fischer 12/13/2020 13:44) Name Value Range Interpretation Code Description Data Dayna rce(s) Supporting Document(s) ID Date Data Source [id number] 12/16/2020 06:29:00 AM EDT [facility] Name Value Range Interpretation Code Description Data Dayna rce(s) Supporting Document(s) CULTURE UPPER RESPIRATORY [facility] _CULTURE UPPER RESPIRATORY_$$[id number]$$[id number]$$[id number]$$[id number]$$[id number]$$[id number]$$[id number] DATE/TIME: 12/15/2020 13:05Culture: CULTURE UPPER RESPIRATORY Status: FinalUpper Respiratory Culture: [id number] respiratory floraP1 Test performed by: [facility] #: [id number] [address] [id number] [facility] [id number] Director : Kermit Rodriguez MD NPI #:Mail Processing Associate : [email or web address] REF ID Date Data Source [id number] 12/13/2020 08:48:00 AM EDT [facility] Name Value Range Interpretation Code Description Data [facility] rce(s) Supporting Document(s) RAPID STREP NEGATIVE NORMAL: NEGATIVE [facility] RAPID STREP REENTER NEGATIVE NORMAL: NEGATIVE [facility] { PROCEDURAL CONTROL VALID ){ KIT LOT # [id number] ){ KIT EXP DATE 03.20.22 )The Strep A 2 assay utilizes isothermal nucleic acid amplification technology fothe qualitative detection of Group A Strep bacterial nucleic acid in throat swabspecimens.All negative test results no longer need to be confirmed with a culture. Follow-up testing requiring a culture is necessary if clinical symptoms persist, or inthe event of an acute rheumatic fever outbreak. A culture will need to beordered by the Qualified Medical Provider.Negative results do not preclude infection with Group A Strep and should not beused as the sole basis for treatment. ID Date Data Source [id number] 11/09/2020 11:47:00 PM EDT [facility] Name Value Range Interpretation Code Description Data [facility] rce(s) Supporting Document(s) SARS coronavirus 2 RNA [Presence] in Res piratory specimen by DANNY with probe detection [facility]GAT[facility] This lab was ordered by [facility] a nd reported by [facility]. ID Date Data Source [id number] 07/14/2020 09:28:00 AM EDT [facility] ([facility]) Name Value Range Interpretation Code Description Data Dayna rce(s) Supporting Document(s) Hemoglobin A1c/Hemoglobin.total in Blood 6.6 Abnormal (applies to non-numeric results) HbA1C [facility] ([facility]) ID Date Data Source [id number] 07/14/2020 09:27:00 AM EDT [facility] ([facility]) Name Value Range Interpretation Code Description Data Dayna rce(s) Supporting Document(s) Glucose [Mass/volume] in Urine collected for unspecified duratio n 170 Abnormal (applies to non-numeric results) Glucose [facility] ([facility]) ID Date Data Source [id number] 03/26/2020 06:17:00 AM EST [facility] ([facility]) Name Value Range Interpretation Code Description Data Dayna rce(s) Supporting Document(s) Reported Physicians See Note Reported Physici ans [facility] ([facility]) Note: Reported Physicians:Ordering: Kenna CamposAttending: Eliazar SánchezicaCopy To: Eliazar SánchezicaCopy To: Aleyda Valdez ID Date Data Source [id number] 03/26/2020 06:17:00 AM EST [facility] ([facility]) Name Value Range Interpretation Code Description Data Dayna rce(s) Supporting Document(s) MALB URINE SIEMENS 44.4 MG/L Normal MALB URINE SIEMEN S [facility] ([facility]) CREATININE, URINE 72.6 MG/DL Normal CREATININE, URINE [facility] ([facility]) EDE/CREAT RATIO 61.1 MCG/MG Above high normal EDE/CREAT RA NIA [facility] ([facility]) Note: THE [employer] STATES THAT MICROALBUMINURIA IS PRESENT IF THE MICROALBUMIN/CREATININE RATIO EXCEEDS 30 MCG/MG. THE THRESHOLD FOR CLINICAL ALBUMINURIA IS REACHED AT 300 MCG/MG. THE CLASSIFICATION OF A PATIENT SHOULD BE BASED UPON AT LEAST 2 OF 3 ABNORMAL RESULTS ON SPECIMENS COLLECTED WITHIN A 3 TO 6 MONTH TIME FRAME. ID Date Data Source [id number] 03/26/2020 06:14:00 AM EST [facility] ([facility]) Name Value Range Interpretation Code Description Data Dayna rce(s) Supporting Document(s) Reported Physicians See Note Reported Physici ans [facility] ([facility]) Note: Reported Physicians:Ordering: Ralph as, JamaicaAttending: [place], JamaicaCopy To: [place], JamaicaCopy To: Aleyda Valdez ID Date Data Source [id number] 03/26/2020 06:14:00 AM [facility] ([facility]) Name Value Range Interpretation Code Description Data [facility] rce(s) Supporting Document(s) WHITE BLOOD COUNT 6.0 3/uL Normal WHITE BLOOD COUNT [facility] ([facility]) Hemoglobin [Mass/volume] in Mixed venous blood by Oximetry 14.3 g/d l Normal HEMOGLOBIN [facility] ([facility]) Hematocrit [Pure volume fraction] of Blood by Automated count 41 .9 % Below low normal HEMATOCRIT [facility]) RED BLOOD COUNT 4.81 6/uL Normal [facility] BLO[facility] COUNT [facility]) RED CELL DISTRIBUTION WIDTH 13.2 % Normal RED CELL DISTRIBUTION WIDTH [facility]) MEAN CORPUSCULAR VOLUME 87.1 fl Normal MEAN CORPUSC ULAR VOLUME [facility]) MEAN CORPUSCULAR HEMOGLOBIN 29.7 pg Normal MEAN COR PUSCULAR HEMOGLOBIN [facility] ([facility]) MEAN CORPUSCULAR HGB CONC 34.1 g/dl Normal MEAN CORPU SCULAR HGB CONC [facility] ([facility]) NUCLEATED RED BLOOD CELL % 0.0 % Normal NUCLEATED RED BLOOD CELL % [facility] ([facility]) PLATELET COUNT, AUTOMATED 155 3/uL Normal PLATELET C OUNT, AUTOMATED [facility] ([facility]) ID Date Data Source [id number] 03/26/2020 06:14:00 AM EST [facility] ([facility]) Name Value Range Interpretation Code Description Data [facility] rce(s) Supporting Document(s) Reported Physicians See Note Reported Physici ans [facility] ([facility]) Note: Reported Physicians:Ordering: Ralph as, JamaicaAttending: Gonzalo, JamaicaCopy To: Gonzalo, JamaicaCopy To: Aleyda Valdez ID Date Data Source [id number] 03/26/2020 06:14:00 AM EST [facility] ([facility]) Name Value Range Interpretation Code Description Data Dayna rce(s) Supporting Document(s) TOTAL 25(OH) VITAMIN D 46.0 NG/ML Normal TOTAL 25(OH) VITAMIN D [facility] ([facility]) ID Date Data Source [id number] 03/26/2020 06:14:00 AM EST [facility] ([facility]) Name Value Range Interpretation Code Description Data Dayna rce(s) Supporting Document(s) Reported Physicians See Note Reported Physic ans [facility] ([facility]) Note: Reported Physicians:Ordering: Ralph asEliazaricaAttending: Gonzalo, EliazaricaCopy To: [place], EliazaricaCopy To: Aleyda Valdez ID Date Data Source [id number] 03/26/2020 06:14:00 AM EST [facility] ([facility]) Name Value Range Interpretation Code Description Data Dayna rce(s) Supporting Document(s) TRIGLYCERIDES LEVEL 115 MG/DL Normal TRIGLYCERIDES LE KATHY [facility] ([facility]) HDL CHOLESTEROL 33 MG/DL Below low normal HDL CHOLESTERO L [facility] ([facility]) CHOLESTEROL LEVEL 137 MG/DL Normal CHOLESTEROL LEVEL [facility] ([facility]) NON-HDL-C 104 MG/DL Normal NON-HDL-C [facility] ([facility]) LDL CHOLESTEROL 81 MG/DL Normal LDL CHOLESTEROL GREE [facility] ([facility]) CHOLESTEROL RISK RATIO 4.151 Normal CHOLESTEROL R ISK RATIO [facility] ([facility]) ID Date Data Source [id number] 03/26/2020 06:14:00 AM EST [facility] ([facility]) Name Value Range Interpretation Code Description Data Dayna rce(s) Supporting Document(s) Reported Physicians See Note [facility] Note: Reported Physicians:Ordering: Ralph as JamaicaAttending: Gonzalo, JamaicaCopy To: [place], JamaicaCopy To: Aleyda Valdez ID Date Data Source [id number] 03/26/2020 06:14:00 AM EST [facility] ([facility]) Name Value Range Interpretation Code Description Data Dayna rce(s) Supporting Document(s) GLUCOSE, FASTING 131 MG/DL Above high normal GLUCOSE, FAS TING [facility] ([facility]) BLOOD UREA NITROGEN 19 MG/DL Above high normal BLOOD URE A NITROGEN [facility] ([facility]) GLOMERULAR FILTRATION RATE 58.2 Normal GLOMERULA R FILTRATION RATE [facility] ([facility]) Note: Units are mL/min/1.73 m2 Chroni c Kidney Disease Staging per NKF: Stage I & II GFR >=60 Normal to Mildly Decreased Stage III GFR 30- 59 Moderately Decreased Stage IV GFR 15-29 Severely Decreased Stage V GFR <15 Very Little GFR Left ESRD GFR <15 on MORTUARY TECHNICIAN CREATININE FOR GFR 1.27 MG/DL Normal CREATININE FOR GF R [facility] ([facility]) SODIUM LEVEL 140 MEQ/L Normal SODIUM LEVEL [facility]) POTASSIUM SERUM 3.9 MEQ/L Normal POTASSIUM SERUM [facility]) CHLORIDE LEVEL 105 MEQ/L Normal CHLORIDE LEVEL [facility]) CARBON DIOXIDE LEVEL 29 MEQ/L Normal CARBON DIOXIDE LEVEL [facility]) CALCIUM LEVEL 9.3 MG/DL Normal CALCIUM LEVEL [facility]) Anion gap in Body fluid 6 MEQ/L Below low normal ANION GAP [facility]) ALT/SGPT 35 U/L Normal ALT/SGPT [facility]) Alkaline phosphatase [Enzymatic activity/volume] in Se rum, Plasma or Blood 44 U/L Below low normal ALKALINE PHOSPHATASE [facility]) BILIRUBIN,TOTAL 0.6 MG/DL Normal BILIRUBIN,TOTAL [facility] ([facility]) AST/SGOT 19 U/L Normal AST/SGOT [facility] ([facility]) ALBUMIN/GLOBULIN RATIO 1.5 Normal ALBUMIN/GLOBU TOVA RATIO [facility]) Albumin [Mass/volume] in Blood by Bromocresol purple ( BCP) dye binding method 4.0 GM/DL Normal ALBUMIN [facility]) TOTAL PROTEIN 6.7 GM/DL Normal TOTAL PROTEIN [facility] ([facility]) ID Date Data Source [id number] 01/01/2020 01:41:00 PM EST [facility] ([facility]) Name Value Range Interpretation Code Description Data Dayna rce(s) Supporting Document(s) Glucose [Mass/volume] in Urine collected for unspecified duration 1 30 Normal Glucose [facility] ([facility]) ID Date Data Source [id number] 01/01/2020 01:40:00 PM EST [facility] ([facility]) Name Value Range Interpretation Code Description Data Dayna rce(s) Supporting Document(s) Hemoglobin A1c/Hemoglobin.total in Blood 6.6 Abnormal (applies to non-numeric results) HbA1C [facility] ([facility]) Procedure Social History No Information Vital Signs ID Date Data Source UNK Name Value Range Interpretation Code Description Data Source(s) Heart [facility] 68 /min 68 /min [facility] Respiratory rate 24 /min 24 /min [facility] ([facility]) Body temperature 98.2 [degF] 98.2 [degF] [facility] ([facility]) Body height 64.5 [in_i] 64.5 [in_i] [facility] ([facility]) Body weight 267 [lb_av] 267 [lb_av] [facility] ([facility]) Body mass index (BMI) [Ratio] 45.1 kg/m2 45.1 k g/m2 [facility] ([facility]) Body surface area Derived from formula 2.22 m2 2.22 m2 [facility] ([facility]) Oxygen saturation in Arterial blood by Pulse oximetry 97 % 97 % [facility] ([facility]) Systolic blood pressure 138 mm[Hg] 138 mm[Hg] [facility] ([facility]) Diastolic blood pressure 90 mm[Hg] 90 mm[Hg] [facility] ([facility]) Systolic blood pressure 126 mm[Hg] 126 mm[Hg] S [facility] Body weight 121.11 kg 121.11 kg [facility] Diastolic blood pressure 76 mm[Hg] 76 mm[Hg] [facility] Body mass index (BMI) [Ratio] 44.43 kg/m2 44.43 kg/m2 [facility] Heart rate 68 /min 68 /min [facility] Respiratory rate 16 /min 16 /min [facility] Body height 165.1 cm 165.1 cm [facility] Inhaled oxygen flow rate 0 L/min 0 L/min [facility] ([facility]) Inhaled oxygen concentration 21 % 21 % [facility] ([facility]) Systolic blood pressure 134 mm[Hg] 134 mm[Hg] G REENWAY ([facility]) Diastolic blood pressure 74 mm[Hg] 74 mm[Hg] [facility] ([facility]) Body height 64.5 [in_i] 64.5 [in_i] [facility] ( [facility]) Body weight 264 [lb_av] 264 [lb_av] [facility] ([facility]) Body mass index (BMI) [Ratio] 44.6 kg/m2 44.6 k g/m2 [facility] ([facility]) Heart rate 63 /min 63 /min [facility] ([facility]) Respiratory rate 22 /min 22 /min [facility] ([facility]) Body temperature 95.7 [degF] 95.7 [degF] [facility] ([facility]) Body surface area Derived from formula 2.21 m2 2.21 m2 [facility] ([facility]) Oxygen saturation in Arterial blood by Pulse oximetry 97 % 97 % [facility] ([facility]) Systolic blood pressure 132 mm[Hg] 132 mm[Hg] [facility] Diastolic blood pressure 80 mm[Hg] 80 mm[Hg] [facility] Heart rate 64 /min 64 /min [facility] Respiratory rate 16 /min 16 /min [facility] Body height 165.1 cm 165.1 cm [facility] Body weight 118.842 kg 118.842 kg [facility] Body mass index (BMI) [Ratio] 43.60 kg/m2 43.60 kg/m2 [facility] Heart rate 78 /min 78 /min [facility] ([facility]) Respiratory rate 22 /min 22 /min [facility] ([facility]) Body temperature 96.9 [degF] 96.9 [degF] [facility] ([facility]) Body height 64.5 [in_i] 64.5 [in_i] [facility] ([facility]) Body weight 263 [lb_av] 263 [lb_av] [facility] ([facility]) Body mass index (BMI) [Ratio] 44.4 kg/m2 44.4 k g/m2 [facility] ([facility]) Body surface area Derived from formula 2.21 m2 2.21 m2 [facility] ([facility]) Oxygen saturation in Arterial blood by Pulse oximetry 95 % 95 % [facility] ([facility]) Inhaled oxygen flow rate 0 L/min 0 L/min [facility] ([facility]) Inhaled oxygen concentration 21 % 21 % [facility] ([facility]) Systolic blood pressure 138 mm[Hg] 138 mm[Hg] [facility] Diastolic blood pressure 78 mm[Hg] 78 mm[Hg] [facility] ([facility]) Patient Treatment Plan of Care Planned Activity Planned Date Details Description Data Source (s) Accu-Chek Soft Touch Lancets Miscellaneous 10/09/2020 12:00:00 AM E DT [facility] ([facility]) Ergocalciferol [id number] UNT Oral Capsule [Drisdol] 10/09/2020 12:00:00 AM EDT [facility] ([facility]) Fenofibrate 48 MG Oral Tablet 10/09/2020 12:00:00 AM EDT [facility] ([facility]) Hydrochlorothiazide 25 MG Oral Tablet 10/09/2020 12:00:00 AM EDT [facility] ([facility]) Klor-Con M20 20 MEQ Oral Tablet Extended Release 10/09/2020 12:00:0 0 AM EDT [facility] ([facility]) Losartan Potassium 100 MG Oral Tablet 10/09/2020 12:00:00 AM EDT [facility] ([facility]) Metformin hydrochloride 500 MG Oral Tablet 10/09/2020 12:00:00 AM E [facility] ([facility]) Esomeprazole 40 MG Delayed Release Oral Capsule [Nexiu m] 10/09/2020 12:00:00 AM EDT [facility] ([facility]) Simvastatin 80 MG Oral Tablet 10/09/2020 12:00:00 AM EDT [facility] ([facility]) SM Aspirin Adult Low Strength 81 MG Oral Tablet Delaye d Release 10/09/2020 12:00:00 AM EDT [facility] ([facility]) Atenolol 50 MG Oral Tablet [Tenormin] 10/09/2020 12:00:[address] [facility]) Fenofibrate 48 MG Oral Tablet 08/07/2020 12:00:[address] [facility]) Ergocalciferol [id number] UNT Oral Capsule [Drisdol] 07/14/2020 12:00:[address] [facility]) Accu-Chek Soft Touch Lancets Miscellaneous 07/14/2020 12:00:00 AM E [facility] ([facility]) Fenofibrate 48 MG Oral Tablet 07/14/2020 12:00:00 AM [facility]) Hydrochlorothiazide 25 MG Oral Tablet 07/14/2020 12:00:00 AM [facility]) Klor-Con M20 20 MEQ Oral Tablet Extended Release 07/14/2020 [facility]:00[facility] Losartan Potassium 100 MG Oral Tablet 07/14/2020 12:00:00 AM EDT [facility] ([facility]) Metformin hydrochloride 500 MG Oral Tablet 07/14/2020 12:00:00 AM E [facility] ([facility]) Esomeprazole 40 MG Delayed Release Oral Capsule [Nexiu m] 07/14/2020 12:00:00 AM EDT [facility] ([facility]) Simvastatin 80 MG Oral Tablet 07/14/2020 12:00:00 AM [facility] ([facility]) Ergocalciferol [id number] UNT Oral Capsule [Drisdol] 07/14/2020 12:00:00 AM [facility] ([facility]) Atenolol 50 MG Oral Tablet [Tenormin] 07/14/2020 12:00:00 AM [facility] ([facility]) Accu-Chek Yi Plus In Vitro Strip 07/14/2020 12:00:00 AM [facility] ([facility]) SM Aspirin Adult Low Strength 81 MG Oral Tablet Delaye d Release 07/10/2020 12:00:00 AM [facility] ([facility]) Ergocalciferol 47301 UNT Oral Capsule [Drisdol] 2020 12:00:00 AM [facility] ([facility]) Aspirin Adult Low Strength 81 MG Oral Tablet Delayed R elease 2020 12:00:00 AM [facility] ([facility]) Fenofibrate 48 MG Oral Tablet 04/22/2020 12:00:00 AM [facility] ([facility]) Ergocalciferol 04866 UNT Oral Capsule [Drisdol] 04/16/2020 12:00:00 AM [facility] ([facility]) Hydrochlorothiazide 25 MG Oral Tablet 04/16/2020 12:00:00 AM [facility]) Klor-Con M20 20 MEQ Oral Tablet Extended Release 04/16/2020 12:00:0 0 AM [facility] ([facility]) Losartan Potassium 100 MG Oral Tablet 04/16/2020 12:00:00 AM [facility] ([facility]) Metformin hydrochloride 500 MG Oral Tablet 04/16/2020 12:00:[address] [facility] ([facility]) Esomeprazole 40 MG Delayed Release Oral Capsule [Nexiu m] 04/16/2020 12:00:00 AM [facility] ([facility]) Simvastatin 80 MG Oral Tablet 04/16/2020 12:00:00 AM [facility] ([facility]) Atenolol 50 MG Oral Tablet [Tenormin] 04/16/2020 12:00:00 AM [facility] ([facility]) Fenofibrate 48 MG Oral Tablet [Tricor] 04/16/2020 12:00:00 AM [facility] ([facility]) Aspirin Adult Low Strength 81 MG Oral Tablet Delayed R elease 04/16/2020 12:00:00 AM [facility] ([facility]) Fenofibrate 48 MG Oral Tablet 01/02/2020 12:00:[address] [facility] Losartan Potassium 100 MG Oral Tablet 01/02/2020 12:00:[address] [facility] Ergocalciferol 90909 UNT Oral Capsule [Drisdol] 01/01/2020 12:00:00 AM [facility]) Accu-Chek Yi Plus In Vitro Strip 01/01/2020 12:00:00 AM [facility] ([facility]) Hydrochlorothiazide 25 MG Oral Tablet 01/01/2020 12:00:00 AM [facility] ([facility]) Klor-Con M20 20 MEQ Oral Tablet Extended Release 01/01/2020 12:00:0 0 AM [facility] ([facility]) Losartan Potassium 100 MG Oral Tablet 01/01/2020 12:00:00 AM [facility] ([facility]) Metformin hydrochloride 500 MG Oral Tablet 01/01/2020 12:00:00 AM E [facility] ([facility]) Esomeprazole 40 MG Delayed Release Oral Capsule [Nexiu m] 01/01/2020 12:00:00 AM [facility] ([facility]) Simvastatin 80 MG Oral Tablet 01/01/2020 12:00:00 AM [facility] ([facility]) Atenolol 50 MG Oral Tablet [Tenormin] 01/01/2020 12:00:00 AM [facility] ([facility]) Fenofibrate 48 MG Oral Tablet [Tricor] 01/01/2020 12:00:00 AM [facility] ([facility]) Aspirin 81 MG Delayed Release Oral Tablet [Ecotrin] 01/01/20 12:00:00 AM [facility] ([facility]) Metformin hydrochloride 500 MG Oral Tablet 11/15/2019 12:00:00 AM E [facility] ([facility]) Losartan Potassium 100 MG Oral Tablet 10/18/2019 12:00:[address] [facility]) Accu-Chek Soft Touch Lancets Miscellaneous 10/02/2019 12:00:00 AM E [facility] ([facility]) Ergocalciferol [id number] UNT Oral Capsule [Drisdol] 10/02/2019 12:00:[address] [facility]) Hydrochlorothiazide 25 MG Oral Tablet 10/02/2019 12:00:[address] [facility]) Klor-Con M20 20 MEQ Oral Tablet Extended Release 10/02/2019 12:00:[address] [facility]) Losartan Potassium 50 MG Oral Tablet 10/02/2019 12:00:[address] [facility]) Metformin hydrochloride 500 MG Oral Tablet 10/02/2019 12:00:00 AM E [facility] ([facility]) Esomeprazole 40 MG Delayed Release Oral Capsule [Nexiu m] 10/02/2019 12:00:00 AM EDT [facility]) Simvastatin 80 MG Oral Tablet 10/02/2019 12:00:[address] [facility]) Atenolol 50 MG Oral Tablet [Tenormin] 10/02/2019 12:00:[address] [facility]) Fenofibrate 48 MG Oral Tablet [Tricor] 10/02/2019 12:00:[address] [facility]) Accu-Chek Yi Plus In Vitro Strip 09/04/2019 12:00:00 AM [facility] ([facility]) Aspirin 81 MG Delayed Release Oral Tablet [Ecotrin] 08/15/19 12:00:00 AM [facility]T [facility] ([facility]) Losartan Potassium 25 MG Oral Tablet [facility] Fenofibrate 67 MG Oral Capsule [facility]
[2020-12-16] MEDS ORDERED: ISOVUE-370 76% 100ML VIAL As Ordered ONE (09:21)
[2020-12-16] MEDS ORDERED: ASPIRIN 81 MG CHEW TABLET PO ONE (09:25)
--- NOTE | 2020-12-16 10:37 | REP ---
INDICATION: sob. COMPARISON: 01/06/2017 CT. Radiograph today. TECHNIQUE: CT angiogram chest performed following the intravenous administration of 100 cc of Isovue 370. Sagittal and coronal reconstruction images are performed. The study is somewhat limited by breathing motion. FINDINGS: Lungs: Tiny scattered calcified granulomas are seen bilaterally. There is mild bibasilar interstitial fibrosis. There is a subpleural subcentimeter nodular density anteriorly on the right on image 59 which is stable. Mediastinum: No adenopathy. Pulmonary arteries: No evidence of pulmonary embolism. Alejandra: No adenopathy. Axilla: No adenopathy. Pleura: No effusion. Heart: Not enlarged. Thoracic aorta: No aneurysm or dissection. There is a small hiatal hernia. Visualized osseous structures: There are degenerative changes of the spine without compression deformity. IMPRESSION: No CT evidence of pulmonary embolism. No infiltrate seen. <Electronically signed by Benedict Posey > 12/16/20 [id number]
--- NOTE | 2020-12-16 10:41 | REP ---
INDICATION: sob. COMPARISON: Multiple the latest 11/09/2020 TECHNIQUE: Standard helical technique after the intravenous administration of 100 cc Isovue 370 FINDINGS: Lung bases are unchanged. The liver, spleen, pancreas, adrenal glands, and kidneys are unchanged. There is an enhancing nodule arising from the right adrenal gland which has been stable since 11/11/2015. The abdominal aorta and para-aortic regions are unchanged and again seen to be within normal limits. There is mild Anayeli duodenal fatty infiltration around the 2nd portion of the duodenum representing a change from the prior exam. The bowel loops and the mesenteries are otherwise unchanged. There is no evidence of free fluid or free air. There is no significant change in the imaged osseous structures. 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 Other findings as described above. <Electronically signed by Max Marie > 12/16/20 [id number]
[2020-12-16 12:23] LABS: CK-MB VALUE MASS 3.1 NG/ML (<3.6); MB/CK RELATIVE INDEX 5.08 (< OR =4); TROPONIN I 0.33 NG/ML (< 0.10)
[2020-12-16] MEDS ORDERED: SUCR1TA PO (13:48)
[2020-12-16] MEDS ORDERED: NORV5TAB PO (13:48)
[2020-12-16] MEDS ORDERED: REGL10TA6 PO (13:48)
[2020-12-16] MEDS ORDERED: HOME MED LIST COMPLETE! XX SCH (13:50)
[2020-12-16] MEDS ORDERED: GLUCOSE 4GM CHEW TABLET PO PRN (13:55)
[2020-12-16] MEDS ORDERED: ENOXAPARIN 40MG/0.4ML SYRINGE (J1650 PER 10MG) SC ONE (13:55)
[2020-12-16] MEDS ORDERED: MORPHINE 4 MG/ML 1ML VIAL/SYRINGE (J2270) IV PRN (13:55)
[2020-12-16] MEDS ORDERED: GLUCAGON INJ 1MG VIAL SC PRN (13:55)
[2020-12-16] MEDS ORDERED: DEXTROSE 50% 50 ML SYRINGE IV PRN (13:55)
--- OUTSIDE RECORDS SUMMARY | 2020-12-16 14:02 | CCD ---
Author Author [facility] Organization [facility] Address Unknown Phone Unavailable Care Team Providers Care Street Contractor Name Role Phone Jaffrey, N Armen SENIOR ABAP DEVELOPER Unavailable Unavailable Siobhan, N Armen SENIOR ABAP DEVELOPER Unavailable Unavailable Jaffrey, N Armen SENIOR ABAP DEVELOPER Unavailable Unavailable Siobhan, N Armen SENIOR ABAP DEVELOPER Unavailable Unavailable Jaffrey, N Armen SENIOR ABAP DEVELOPER Unavailable Unavailable Jaffrey, N Armen SENIOR ABAP DEVELOPER Unavailable Unavailable Siobhan, N Armen SENIOR ABAP DEVELOPER Unavailable Unavailable Siobhan, N Armen SENIOR ABAP DEVELOPER Unavailable Unavailable Jaffrey, N Armen SENIOR ABAP DEVELOPER Unavailable Unavailable Jaffrey, N Armen SENIOR ABAP DEVELOPER Unavailable Unavailable Jaffrey, N Armen SENIOR ABAP DEVELOPER Unavailable Unavailable Siobhan, N Armen SENIOR ABAP DEVELOPER Unavailable Unavailable Siobhan, N Armen SENIOR ABAP DEVELOPER Unavailable Unavailable Siobhan, N Armen SENIOR ABAP DEVELOPER Unavailable Unavailable Jaffrey, N Armen SENIOR ABAP DEVELOPER Unavailable Unavailable Siobhan, N Armen SENIOR ABAP DEVELOPER Unavailable Unavailable Siobhan, N Armen SENIOR ABAP DEVELOPER Unavailable Unavailable Siobhan, N Armen SENIOR ABAP DEVELOPER Unavailable Unavailable Jaffrey, N Armen SENIOR ABAP DEVELOPER Unavailable Unavailable Jaffrey, N Armen SENIOR ABAP DEVELOPER Unavailable Unavailable Jaffrey, N Armen SENIOR ABAP DEVELOPER Unavailable Unavailable Siobhan, N Armen SENIOR ABAP DEVELOPER Unavailable Unavailable Siobhan, N Armen SENIOR ABAP DEVELOPER Unavailable Unavailable Jaffrey, N Armen SENIOR ABAP DEVELOPER Unavailable Unavailable Jaffrey, N Armen SENIOR ABAP DEVELOPER Unavailable Unavailable Siobhan, N Armen SENIOR ABAP DEVELOPER Unavailable Unavailable Jaffrey, N Armen SENIOR ABAP DEVELOPER Unavailable Unavailable Jaffrey, N Armen SENIOR ABAP DEVELOPER Unavailable Unavailable Siobhan, N Armen SENIOR ABAP DEVELOPER Unavailable Unavailable Siobhan, N Armen SENIOR ABAP DEVELOPER Unavailable Unavailable Siobhan, N Armen SENIOR ABAP DEVELOPER Unavailable Unavailable Jaffrey, N Armen SENIOR ABAP DEVELOPER Unavailable Unavailable Siobhan, N Armen SENIOR ABAP DEVELOPER Unavailable Unavailable [place], Mariae [place] SENIOR ABAP DEVELOPER Unavailable Unavailable Gonzalo, Mariae Kenna SENIOR ABAP DEVELOPER Unavailable Unavailable Gonzalo, Mariae [place] SENIOR ABAP DEVELOPER Unavailable Unavailable [place], Mariae Kenna SENIOR ABAP DEVELOPER Unavailable Unavailable [place], Mariae Kenna SENIOR ABAP DEVELOPER Unavailable Unavailable Gonzalo, Mariae Kenna SENIOR ABAP DEVELOPER Unavailable Unavailable [place], Mariae [place] SENIOR ABAP DEVELOPER Unavailable Unavailable Gonzalo, Mariae Kenna SENIOR ABAP DEVELOPER Unavailable Unavailable [place], Mariae Kenna SENIOR ABAP DEVELOPER Unavailable Unavailable Gonzalo, Mariae Kenna SENIOR ABAP DEVELOPER Unavailable Unavailable [place], Mariae [place] SENIOR ABAP DEVELOPER Unavailable Unavailable [place], Mariae Kenna SENIOR ABAP DEVELOPER Unavailable Unavailable [place], Mariae Kenna SENIOR ABAP DEVELOPER Unavailable Unavailable [place], Mariae [place] SENIOR ABAP DEVELOPER Unavailable Unavailable Gonzalo, Mariae Kenna SENIOR ABAP DEVELOPER Unavailable Unavailable Gonzalo, Mariae [place] SENIOR ABAP DEVELOPER Unavailable Unavailable Gonzalo, Mariae [place] SENIOR ABAP DEVELOPER Unavailable Unavailable Courtney, Alphonso Maynard MD Unavailable [...] Alphonso Maynard MD Unavailable Unavailable Courtney, Alphonso Maynadr MD Unavailable Unavailable Courtney, Alphonso Maynard MD [...] is protected by Article 27-F of the [facility] Public Health law. If you continue you may have access to information: Regarding HIV / AIDS; Provided by facilities licensed or operated by the [facility] Office of Mental Health; or Provided by the [facility] Office for People With Developmental Disabilities. If such information is present, then the following [facility] mandated warning applies: This information has been [...] law may result in a fine or fpc sentence or both. A general authorization for the release of medical or other information is NOT sufficient authorization for further disc losure. Allergies and Adverse Reactions Type Description Substance Reaction Status Data Source(s ) No Known Drug Allergies No Known Drug Allergies [facility] Family History Family Member Name Family Member Gender Family Member Status Date o f Status Description Data Source(s) Unknown Unknown Problem [facility] ([facility], ) Encounters Encounter Providers Location Date Indications Data Source(s ) Emergency Attender: GISELE FISCHER MDConsultant: Giles Valdez MD 12/13/2020 07:59:00 AM EDT - 12/13/2020 10:50:00 AM EDT [facility] Patient discharged. <td ID="encounterTypeDescriptionID0">STA AVINASHARD OV</td><td>Kenna Sánchez NP</td><td>[facility]</td><td>10/09/2020</td><td>8:39AM</td><td>9:30AM</td><td><content ID="encounterDiagnosisID0-0">Essential Hypertension Benign</content>, <content ID="encounterDiagnosisID0-1">Diabetes Mellitus Type 2 Without Complication</content>, <content ID="encounterDiagnosisID0- 2">Hyperlipidemia</content>, <content ID="encounterDiagnosisID0-3">Gerd</content></td>Outpatient Attender: Kenna Sánchez NP [facility] 10/09/2020 08:39:00 AM EDT - 10/09/2020 09:30:00 AM EDT HyperlipidemiaDiabetes Mellitus Type 2 W ithout ComplicationEssential Hypertension BenignGerd UBALDO ([facility]) Hyperlipidemia Diabetes Mellitus Type 2 Without Complic ation Essential Hypertension Benign Gerd Outpatient Attender: Armen Mccann NP [email or web address] 12:00:00 AM EDT - 08/18/2020 01:37:20 PM EDT [facility] <td ID="encounterTypeDescriptionID1">STA CYNDI OV</td><td>Kenna Sánchez NP</td><td>[facility]</td><td>07/14/2020</td><td>9:05AM</td><td>9:53AM</td><td><content ID="encounterDiagnosisID1-0">Diabetes Mellitus Type 2</content>, <content ID="encounterDiagnosisID1-1">Essential Hypertension Benign</content>, <content ID="encounterDiagnosisID1-2">Hyperlipidemia</content>, <content ID="encounterDiagnosisID1-3">Gerd</content></td>Outpatient Attender: Kenna Sánchez NP [facility], 07/14/2020 09:05:00 AM EDT - 07/14/2020 09:53:00 AM EDT HyperlipidemiaDiabetes Mellitus Type 2Hy perlipidemiaDiabetes Mellitus Type 2Essential Hypertension BenignEssential Hypertension BenignGerdGerd UBALDO ([facility]) Hyperlipidemia Diabetes Mellitus Type 2 Hyperlipidemia Diabetes Mellitus Type 2 Essential Hypertension Benign Essential Hypertension Benign Gerd Gerd Outpatient<td ID="encounterTypeDescripti onID2">E-VISIT E/M</td><td>Kenna Sánchez NP</td><td>[facility],</td><td>04/16/2020</td><td>8:49AM</td><td>11:43AM</td><td><content ID="encounterDiagnosisID2-0">Hyperhidrosis Focal</content>, <content ID="encounterDiagnosisID2-1">Diabetes Mellitus Type 2</content>, <content ID="encounterDiagnosisID2-2">Essential Hypertension Benign</content>, <content ID="encounterDiagnosisID2-3">Hyperlipidemia</content>, <content ID="encounterDiagnosisID2-4">Vitamin D Deficiency</content></td> Attender: Kenna Sánchez NP [facility], 04/16/2020 08:49:00 AM EST - 04/16/2020 11:43:00 AM EST Vitamin D DeficiencyHyperlipidemiaDiabet es Mellitus Type 2Hyperhidrosis FocalVitamin D DeficiencyHyperlipidemiaDiabetes Mellitus Type 2Hyperhidrosis FocalVitamin D DeficiencyHyperlipidemiaDiabetes Mellitus Type 2Hyperhidrosis FocalEssential Hypertension BenignEssential Hypertension BenignEssential Hypertension Benign [place] ([facility]) Vitamin D Deficiency Hyperlipidemia Diabetes Mellitus Type 2 Hyperhidrosis Focal Vitamin D Deficiency Hyperlipidemia Diabetes Mellitus Type 2 Hyperhidrosis Focal Vitamin D Deficiency Hyperlipidemia Diabetes Mellitus Type 2 Hyperhidrosis Focal Essential Hypertension Benign Essential Hypertension Benign Essential Hypertension Benign Outpatient Attender: Armen Mccann NP [email or web address] [email or web address] 12:00:00 AM EST - 02/12/2020 01:54:28 PM EST [facility] Outpatient<td ID="encounterTypeDescripti onID3">STANDARD OV</td><td>Kenna Sánchez NP</td><td>[facility],</td><td>01/01/2020</td><td>12:27PM</td><td>1:59PM</td><td><content ID="encounterDiagnosisID3-0">Hyperhidrosis</content>, <content ID="encounterDiagnosisID3-1">Secondary Hypertension Benign</content>, <content ID="encounterDiagnosisID3-2">Diabetes Mellitus Type 2 with Complication</content></td> Attender: Kenna Sánchez NP [facility], 01/01/2020 12:27:00 PM EST - 01/01/2020 01:59:00 PM ES T Diabetes Mellitus Type 2 with ComplicationSecondary Hypertension BenignHyperhidrosisDiabetes Mellitus Type 2 with ComplicationSecondary Hypertension BenignHyperhidrosisDiabetes Mellitus Type 2 with C omplicationSecondary Hypertension BenignHyperhidrosisDiabetes Mellitus Type 2 with ComplicationSecondary Hypertension BenignHyperhidrosis [place] ([facility]) Diabetes Mellitus Type 2 with Complicati on Secondary Hypertension Benign Hyperhidrosis Diabetes Mellitus Type 2 with Complicati on Secondary Hypertension Benign Hyperhidrosis Diabetes Mellitus Type 2 with Complicati on Secondary Hypertension Benign Hyperhidrosis Diabetes Mellitus Type 2 with Complicati on Secondary Hypertension Benign Hyperhidrosis Immunizations Vaccine Date Status Description Data Source(s) COVID-19 VACCINE Pfizer 05/21/2020 12:00:00 AM EDT completed [facility] Vaccine Series Complete: YESThis Data wa s Submitted to [facility] Via [employer]. COVID-19 VACCINE [employer] 04/30/2020 12:00:00 AM EST completed [facility] Vaccine Series Complete: NOThis Data was Submitted to [facility] Via [employer]. Medications Medication Brand Name Start Date Product [...] MEQ Extended Release Oral Tablet [Klor-Con] UBALDO ([facility]) 1,250 mcg (50,000 unit) 10/09/2020 12:00:00 AM EDT capsule 2 TAKE ONE CAPSULE BY MOUTH EVERY 2 WEEKS TAKE ONE CAPSULE BY MOUTH EVERY 2 WEEKS SOLD: 12/04/2020 [facility] Losartan Potassium 100 MG Oral Tablet Losartan Potassium 100 MG Oral Tablet 10/09/2020 12:00:00 AM EDT 1 active losartan potassium 100 MG Oral Tablet UBALDO [facility]) 81 mg 10/09/2020 12:00:00 AM EDT [...] metformin hydrochloride 500 MG Oral Tablet UBALDO ([facility]) 40 mg 10/09/2020 12:00:00 AM EDT capsule,delayed release (DR/EC) 90 TAKE ONE CAPSULE BY MOUTH EVERY MORNING TAKE ONE CAPSULE BY MOUTH EVERY MORNING SOLD: 10/09/2020 [facility] Esomeprazole 40 MG Delayed Release Oral Capsule [Nexium] NexIUM 40 MG Oral Capsule Delayed Release NexIUM 40 MG Oral Capsule Delayed Release 10/09/2020 12:00:00 AM EDT active esomeprazole 40 MG Delayed Release Oral Capsule [Nexium] [place] ([facility]) LANCETS 10/09/2020 12:00:00 AM EDT misc 100 TEST TWO TIMES A DAY TEST TWO TIMES A DAY SOLD: 10/09/2020 [facility] 25 mg 10/09/2020 12:00:00 AM EDT tablet 30 TAKE ONE TABLET BY MOUTH ONCE DAILY TAKE ONE TABLET BY MOUTH ONCE DAILY SOLD: 10/09/2020 [facility] Simvastatin 80 MG Oral Tablet Simvastatin 80 MG Oral Tablet 10/09/2020 12:00:00 AM EDT active simvastatin 80 MG Oral Tablet [place] ([facility]) 50 mg 10/09/2020 12:00:00 AM EDT tablet 180 TAKE ONE TABLET BY MOUTH TWO TIMES A DAY TAKE ONE TABLET BY MOUTH TWO TIMES A DAY SOLD: 10/09/2020 [facility] Accu-Chek Soft Touch Lancets Miscellaneous Accu-Chek S oft Touch Lancets Miscellaneous 10/09/2020 12:00:00 AM EDT acti ve Accu-Chek Soft Touch Lancets [place] ([facility]) 1,250 mcg (50,000 unit) 10/09/2020 12:00:00 AM EDT capsule 2 TAKE ONE CAPSULE BY MOUTH EVERY 2 WEEKS TAKE ONE CAPSULE BY MOUTH EVERY 2 WEEKS SOLD: 10/09/2020 [facility] Ergocalciferol 20201 UNT Oral Capsule [D risdol] Drisdol 1.25 MG (96147 UT) Oral Capsule Drisdol 1.25 MG (88031 UT) Oral Capsule 10/09/2020 12:00:00 AM EDT active ergocalciferol 1.25 MG Oral Capsule [Drisdol] UBALDO [facility]) Fenofibrate 48 MG Oral Tablet Fenofibrate 48 MG Oral Tablet 10/09/2020 12:00:00 AM EDT active fenofibrate 48 MG Oral Tablet UBALDO ([facility]) 25 mg 10/09/2020 12:00:00 AM EDT tablet 30 TAKE ONE TABLET BY MOUTH ONCE DAILY TAKE ONE TABLET BY MOUTH ONCE DAILY SOLD: 11/06/2020 [facility] Hydrochlorothiazide 25 MG Oral Tablet hydroCHLOROthiaz ruth ann 25 MG Oral Tablet hydroCHLOROthiazide 25 MG Oral Tablet 10/09/2020 12:00:00 AM EDT active hydrochlorothiazide 25 MG Oral T ablet UBALDO ([facility]) 25 mg 10/09/2020 12:00:00 AM EDT [...] active SM Aspirin Adult Low Strength U[facility] ([facility]) Atenolol 50 MG Oral Tablet [Tenormin] Tenormin 50 MG O ral Tablet Tenormin 50 MG Oral Tablet 10/09/2020 12:00:00 AM EDT active atenolol 50 MG Oral Tablet [Tenormin] U[facility] ([facility]) 80 mg 10/09/2020 12:00:00 AM EDT [...] aborted fenofibrate 48 M G Oral Tablet [place] ([facility]) Fenofibrate 48 MG Oral Tablet FENOFIBRATE [...] atenolol 50 MG Oral Tablet [Tenormin] UBALDO ([facility]) 80 mg 07/14/2020 12:00:00 AM EDT [...] aborted simvastatin 80 M G Oral Tablet [place] ([facility]) Esomeprazole 40 MG Delayed Release Oral Capsule [Nexium] NexIUM 40 MG Oral Capsule Delayed Release NexIUM 40 MG Oral Capsule Delayed Release 07/14/2020 12:00:00 AM EDT aborted esomeprazole 40 MG Delayed Release Oral Capsule [Nexium] U[facility]DO ([facility]) Ergocalciferol 14250 UNT Oral Capsule [D risdol] Drisdol 1.25 MG (56304 UT) Oral Capsule Drisdol 1.25 MG (73599 UT) Oral Capsule 07/14/2020 12:00:00 AM EDT aborted ergocalciferol 1.25 MG Oral Capsule [Drisdol] [facility]) Metformin hydrochloride 500 MG Oral Tablet metFORMIN H Cl 500 MG Oral Tablet metFORMIN HCl 500 MG Oral Tablet 07/14/2020 12:00:00 AM EDT aborted metformin hydrochloride 500 MG Oral Tablet [facility]) Losartan Potassium 100 MG Oral Tablet Losartan Potassium 100 MG Oral Tablet 07/14/2020 12:00:00 AM EDT 1 aborted losartan potassium 100 MG Oral Tablet [facility]) 20 mEq 07/14/2020 12:00:00 AM EDT tablet,ER particles/cry stals 30 TAKE ONE TABLET BY MOUTH AT BEDTIME TAKE ONE TABLET BY MOUTH AT BEDTIME SOLD: 07/15/2020 [facility] Klor-Con M20 20 MEQ Oral Tablet Extended Release Klor- Con M20 20 MEQ Oral Tablet Extended Release 07/14/2020 12:00:00 AM EDT aborted Microencapsulated potassium chloride 20 MEQ Extended Release Oral Tablet [Klor-Con] [facility]) 25 mg 07/14/2020 12:00:00 AM EDT [...] aborted hydrochlorothiazide 25 MG Oral T ablet [facility]) Fenofibrate 48 MG Oral Tablet Fenofibrate 48 MG Oral Tablet 07/14/2020 12:00:00 AM EDT aborted fenofibrate 48 M G Oral Tablet [facility]) Accu-Chek Soft Touch Lancets Miscellaneous Accu-Chek S oft Touch Lancets Miscellaneous 07/14/2020 12:00:00 AM EDT abor rufino Accu-Chek Soft Touch Lancets [place] ([facility]) Accu-Chek Yi Plus In Vitro Strip Accu-Chek Yi Plus In Vitro Strip 07/14/2020 12:00:00 AM EDT active Accu-Chek Yi Plus [place] ([facility]) Ergocalciferol 04744 UNT Oral Capsule [D risdol] Drisdol 1.25 MG (83499 UT) Oral Capsule Drisdol 1.25 MG (04816 UT) Oral Capsule 07/14/2020 12:00:00 AM EDT aborted ergocalciferol 1.25 MG Oral Capsule [Drisdol] [place] ([facility]) 81 mg 07/11/2020 12:00:00 AM EDT tablet,delayed release (DR/EC) 90 TAKE ONE TABLET BY MOUTH EVERY DAY TAKE ONE TABLET BY MOUTH EVERY DAY SOLD: 07/12/2020 [facility] SM Aspirin Adult Low Strength 81 MG Oral Tablet Delaye d Release SM Aspirin Adult Low Strength 81 MG Oral Tablet Delayed Release 07/10/2020 12:00:00 AM EDT aborted SM Aspirin Adult Low Strength [place] ([facility]) 20 mEq 06/12/2020 12:00:00 AM EDT [...] CAPSULE BY MOUTH EVERY MORNING SOLD: 07/12/2020 [facility] 40 mg 05/13/2020 12:00:00 AM [...] AM EST aborted Aspirin Adult Low Strength [facility] ([facility]) Ergocalciferol 60573 UNT Oral Capsule [D risdol] Drisdol 1.25 MG (24539 UT) Oral Capsule Drisdol 1.25 MG (62313 UT) Oral Capsule 2020 12:00:00 AM EST aborted ergocalciferol 1.25 MG Oral Capsule [Drisdol] [place] ([facility]) Fenofibrate 48 MG Oral Tablet Fenofibrate 48 MG Oral Tablet 04/22/2020 12:00:00 AM EST aborted fenofibrate 48 M G Oral Tablet [place] ([facility]) Fenofibrate 48 MG Oral Tablet FENOFIBRATE [...] TABLET BY MOUTH AT BEDTIME SOLD: 05/29/2020 [facility] 80 mg 04/17/2020 12:00:00 AM [...] aborted simvastatin 80 M G Oral Tablet [facility]) Fenofibrate 48 MG Oral Tablet [Tricor] Tricor 48 MG Or al Tablet Tricor 48 MG Oral Tablet 04/16/2020 12:00:00 AM EST aborte d fenofibrate 48 MG Oral Tablet [Tricor] [place] ([facility]) Atenolol 50 MG Oral Tablet [Tenormin] Tenormin 50 MG O ral Tablet Tenormin 50 MG Oral Tablet 04/16/2020 12:00:00 AM EST aborte d atenolol 50 MG Oral Tablet [Tenormin] [facility]) Ergocalciferol 53059 UNT Oral Capsule [D risdol] Drisdol 1.25 MG (20587 UT) Oral Capsule Drisdol 1.25 MG (47984 UT) Oral Capsule 04/16/2020 12:00:00 AM EST aborted ergocalciferol 1.25 MG Oral Capsule [Drisdol] U[facility] ([facility]) Aspirin Adult Low Strength 81 MG Oral Tablet Delayed R elease Aspirin Adult Low Strength 81 MG Oral Tablet Delayed Release 04/16/2020 12:00:00 AM EST aborted Aspirin Adult Low Strength [facility] ([facility]) Hydrochlorothiazide 25 MG Oral Tablet hydroCHLOROthiaz ruth ann 25 MG Oral Tablet hydroCHLOROthiazide 25 MG Oral Tablet 04/16/2020 12:00:00 AM EST aborted hydrochlorothiazide 25 MG Oral T ablet [place] ([facility]) Klor-Con M20 20 MEQ Oral Tablet Extended Release Klor- Con M20 20 MEQ Oral Tablet Extended Release 04/16/2020 12:00:00 AM EST aborted Microencapsulated potassium chloride 20 MEQ Extended Release Oral Tablet [Klor-Con] [place] ([facility]) Losartan Potassium 100 MG Oral Tablet Losartan Potassium 100 MG Oral Tablet 04/16/2020 12:00:00 AM EST 1 aborted losartan potassium 100 MG Oral Tablet [place] ([facility]) Esomeprazole 40 MG Delayed Release Oral Capsule [Nexium] NexIUM 40 MG Oral Capsule Delayed Release NexIUM 40 MG Oral Capsule Delayed Release 04/16/2020 12:00:00 AM EST aborted esomeprazole 40 MG Delayed Release Oral Capsule [Nexium] [place] ([facility]) Metformin hydrochloride 500 MG Oral Tablet metFORMIN H Cl 500 MG Oral Tablet metFORMIN HCl 500 MG Oral Tablet 04/16/2020 12:00:00 AM EST aborted metformin hydrochloride 500 MG Oral Tablet [facility]) LANCETS 03/22/2020 12:00:00 AM EST misc 100 USE 1 LANCET TO TEST TWICE A DAY USE 1 LANCET TO TEST TWICE A DAY SOLD: 03/26/2020 [facility] BLOOD SUGAR DIAGNOSTIC 01/19/2020 12:00:00 AM EST strip 100 TEST TWO TIMES A DAY TEST TWO TIMES A DAY SOLD: 01/20/2020 [facility] BLOOD SUGAR DIAGNOSTIC 01/19/2020 12:00:00 AM EST strip 100 TEST TWO TIMES A DAY TEST TWO TIMES A DAY SOLD: 09/06/2020 [facility] Metformin hydrochloride 500 MG Oral Tablet METFORMIN [...] BY MOUTH EVERY MORNING SOLD: 02/07/2020 [facility] Atenolol 50 MG Oral Tablet ATENOLOL 01/04/2020 12:00:00 AM EST tablet 60 TAKE ONE TABLET BY MOUTH TWO TIMES A DAY TAKE ONE TABLET BY MOUTH TWO TIMES A DAY SOLD: 03/26/2020 [facility] Esomeprazole 40 MG Delayed Release Oral Capsule ESOMEPRAZOLE MAGNESIUM 01/04/2020 12:00:00 AM EST capsule,delayed release(DR/EC) 30 TAKE ONE CAPSULE BY MOUTH EVERY MORNING TAKE ONE CAPSULE BY MOUTH EVERY MORNING SOLD: 01/07/2020 [facility] Atenolol 50 MG Oral Tablet ATENOLOL 01/04/2020 12:00:00 AM EST tablet 60 TAKE ONE TABLET BY MOUTH TWO TIMES A DAY TAKE ONE TABLET BY MOUTH TWO TIMES A DAY SOLD: 01/07/2020 [facility] Esomeprazole 40 MG Delayed Release Oral Capsule ESOMEPRAZOLE MAGNESIUM 01/04/2020 12:00:00 AM EST capsule,delayed release(DR/EC) 30 TAKE ONE CAPSULE BY MOUTH EVERY MORNING TAKE ONE CAPSULE BY MOUTH EVERY MORNING SOLD: 03/11/2020 [facility] Atenolol 50 MG Oral Tablet ATENOLOL 01/04/2020 [...] BY MOUTH AT BEDTIME SOLD: 03/26/2020 [facility] Losartan Potassium 100 MG Oral Tablet losartan (COZAAR ) 100 MG tablet losartan (COZAAR) 100 MG tablet 01/02/2020 12:00:00 AM EST 100 mg Oral active Take 100 mg by mouth daily [facility] Fenofibrate 48 MG Oral Tablet fenofibrate (TRICOR) 48 MG tablet fenofibrate (TRICOR) 48 MG tablet 01/02/2020 12:00:00 AM EST 48 mg Oral active Take 48 mg by mouth daily [facility] Fenofibrate 48 MG Oral Tablet FENOFIBRATE [...] 12:00:00 AM EST aborted Accu-Chek Yi Plus [place] ([facility]) Aspirin 81 MG Delayed Release Oral Table t [Ecotrin] Ecotrin Low Strength 81 MG Oral Tablet Delayed Release Ecotrin Low Strength 81 MG Oral Tablet D elayed Release 01/01/2020 12:00:00 AM EST aborted aspirin 81 MG Delayed Release Oral Tablet [Ecotrin] [place] ([facility]) Ergocalciferol 01527 UNT Oral Capsule [D risdol] Drisdol 1.25 MG (21559 UT) Oral Capsule Drisdol 1.25 MG (68917 UT) Oral Capsule 01/01/2020 12:00:00 AM EST aborted ergocalciferol 1.25 MG Oral Capsule [Drisdol] [place] ([facility]) Klor-Con M20 20 MEQ Oral Tablet Extended Release Klor- Con M20 20 MEQ Oral Tablet Extended Release 01/01/2020 12:00:00 AM EST aborted Microencapsulated potassium chloride 20 MEQ Extended Release Oral Tablet [Klor-Con] [facility]) Hydrochlorothiazide 25 MG Oral Tablet hydroCHLOROthiaz ruth ann 25 MG Oral Tablet hydroCHLOROthiazide 25 MG Oral Tablet 01/01/2020 12:00:00 AM EST aborted hydrochlorothiazide 25 MG Oral T ablet [place] ([facility]) Losartan Potassium 100 MG Oral Tablet Losartan Potassium 100 MG Oral Tablet 01/01/2020 12:00:00 AM EST 1 aborted losartan potassium 100 MG Oral Tablet [place] ([facility]) Simvastatin 80 MG Oral Tablet Simvastatin 80 MG Oral Tablet 01/01/2020 12:00:00 AM EST aborted simvastatin 80 M G Oral Tablet [place] ([facility]) Metformin hydrochloride 500 MG Oral Tablet metFORMIN H Cl 500 MG Oral Tablet metFORMIN HCl 500 MG Oral Tablet 01/01/2020 12:00:00 AM EST aborted metformin hydrochloride 500 MG Oral Tablet [place] ([facility]) Esomeprazole 40 MG Delayed Release Oral Capsule [Nexium] NexIUM 40 MG Oral Capsule Delayed Release NexIUM 40 MG Oral Capsule Delayed Release 01/01/2020 12:00:00 AM EST aborted esomeprazole 40 MG Delayed Release Oral Capsule [Nexium] [place] ([facility]) Atenolol 50 MG Oral Tablet [Tenormin] Tenormin 50 MG O ral Tablet Tenormin 50 MG Oral Tablet 01/01/2020 12:00:00 AM EST aborte d atenolol 50 MG Oral Tablet [Tenormin] [facility]) Fenofibrate 48 MG Oral Tablet [Tricor] Tricor 48 MG Or al Tablet Tricor 48 MG Oral Tablet 01/01/2020 12:00:00 AM EST aborte d fenofibrate 48 MG Oral Tablet [Tricor] [facility]) Metformin hydrochloride 500 MG Oral Tablet [...] aborted metformin hydrochloride 500 MG Oral Tablet [facility] [facility] Losartan Potassium 100 MG Oral Tablet Losartan Potassium 100 MG Oral Tablet 10/18/2019 12:00:00 AM EDT 1 aborted losartan potassium 100 MG Oral Tablet [facility]) 50 mg 10/10/2019 12:00:00 AM EDT [...] 20 MEQ Extended Release Oral Tablet [Klor-Con] [facility]) Hydrochlorothiazide 25 MG Oral Tablet hydroCHLOROthiaz ruth ann 25 MG Oral Tablet hydroCHLOROthiazide 25 MG Oral Tablet 10/02/2019 12:00:00 AM EDT aborted hydrochlorothiazide 25 MG Oral T ablet [place] ([facility]) Accu-Chek Soft Touch Lancets Miscellaneous Accu-Chek S oft Touch Lancets Miscellaneous 10/02/2019 12:00:00 AM EDT abor rufino Accu-Chek Soft Touch Lancets [place] ([facility]) Ergocalciferol 49218 UNT Oral Capsule [D risdol] Drisdol 1.25 MG (32999 UT) Oral Capsule Drisdol 1.25 MG (59174 UT) Oral Capsule 10/02/2019 12:00:00 AM EDT aborted ergocalciferol 1.25 MG Oral Capsule [Drisdol] [place] ([facility]) Atenolol 50 MG Oral Tablet [Tenormin] Tenormin 50 MG O ral Tablet Tenormin 50 MG Oral Tablet 10/02/2019 12:00:00 AM EDT aborte d atenolol 50 MG Oral Tablet [Tenormin] [place] ([facility]) Simvastatin 80 MG Oral Tablet Simvastatin 80 MG Oral Tablet 10/02/2019 12:00:00 AM EDT aborted simvastatin 80 M G Oral Tablet [place] ([facility]) Metformin hydrochloride 500 MG Oral Tablet metFORMIN H Cl 500 MG Oral Tablet metFORMIN HCl 500 MG Oral Tablet 10/02/2019 12:00:00 AM EDT aborted metformin hydrochloride 500 MG Oral Tablet [facility]) Esomeprazole 40 MG Delayed Release Oral Capsule [Nexium] NexIUM 40 MG Oral Capsule Delayed Release NexIUM 40 MG Oral Capsule Delayed Release 10/02/2019 12:00:00 AM EDT aborted esomeprazole 40 MG Delayed Release Oral Capsule [Nexium] [place] ([facility]) Losartan Potassium 50 MG Oral Tablet Losartan Potassium 50 M G Oral Tablet 10/02/2019 12:00:00 AM EDT aborted losartan potassium 50 MG Oral Tablet [facility]) Fenofibrate 48 MG Oral Tablet [Tricor] Tricor 48 MG Or al Tablet Tricor 48 MG Oral Tablet 10/02/2019 12:00:00 AM EDT aborte d fenofibrate 48 MG Oral Tablet [Tricor] [place] ([facility]) BLOOD SUGAR DIAGNOSTIC 09/05/2019 12:00:00 AM [...] 12:00:00 AM EDT aborted Accu-Chek Yi Plus [place] ([facility]) 80 mg 08/17/2019 12:00:00 AM EDT [...] MG Delayed Release Oral Tablet [Ecotrin] [place] ([facility]) Fenofibrate 67 MG Oral Capsule fenofibrate micronized (LOFIBRA) 67 MG capsule fenofibrate micronized (LOFIBRA) 67 MG capsule 48 mg Oral aborted Take 48 mg by mouth every morning before breakfast [facility] Losartan Potassium 25 MG Oral Tablet losartan (COZAAR) 25 MG tablet losartan (COZAAR) 25 MG tablet 50 mg Oral aborted Ta ke 50 mg by mouth daily [facility] Insurance Providers Payer name Policy type / Coverage type Policy ID Covered libertarian ID Covered libertarian's relationship to hung Policy Hung Plan Information Medicare [place] of [place] Medicare Primary 0 [id number] Self 0 Medicare [place] Medicare Primary 0 [id number] Self 0 HUMANA PPO [id number] SP [id number] Medicare [place] Medicare Primary 0 [id number] Self 0 HUMANA PPO [id number] SP [id number] Medicare [place] Medicare Primary 0 [id number] Self 0 Medicare [place] Medicare Primary 0 [id number] Self 0 Medicare [place] Medicare Primary 0 [id number] Self 0 Medicare [place] Medicare Primary 0 [id number] Self 0 Medicare [place] Medicare Primary 0 [id number] Self 0 MEDICARE [id number] [facility] [id number] Medicare [place] Medicare Primary 0 [id number] Self 0 Medicare [place] Medicare Primary 0 [id number] Self 0 MEDICARE [id number] MEDICAID [id number] SP [id number] MEDICAID [id number] SP [id number] MEDICAID [id number] SP [id number] MEDICAID [id number] Madeleine [id number] MEDICAID [id number] [id number] [facility] MEDICAID [id number] SP [id number] EMEDNY [id number] SP [id number] MEDICAID [id number] SP [id number] HUMANA MEDICARE [id number] Madeleine [id number] HUMANA MEDICARE [id number] [phone] [phone] Hum[employer] Care Plan Other 0 [id number] Self 0 [place] Supplemental Policy 0 [id number] Self 0 Humana Care Plan Other 0 [id number] Self 0 [place] Supplemental Policy 0 [id number] Self 0 Humana Care Plan Other 0 [id number] Self 0 MEDICARE PART A-O/P [id number] 18 [id number] Medicaid [facility] Supplemental Policy 0 [id number] Self 0 Humana Care Plan Other 0 [id number] Self 0 Medicare Part B of [facility] Medicare Primary 0 [id number] Self 0 [place] Supplemental Policy 0 [id number] Self 0 Humana Care Plan Other 0 [id number] Self 0 Medicare Part B of [facility] Medicare Primary 0 [id number] Self 0 Medicaid [facility] Supplemental Policy 0 [id number] Self 0 [place] [id number] 18 [id number] MEDICARE PART A [facility] [id number] 18 [id number] [place] Primary [id number] Self [id number] [place] Medicare Primary [id number] Self [id number] [place] Supplemental Policy 0 [id number] Self 0 [place] Supplemental Policy 0 [id number] Self 0 [place] Supplemental Policy 0 [id number] Self 0 S [employer], [facility] C [id number] S [id number] MEDICAID M [id number] S [id number] MEDICARE C [id number] S [id number] A [facility] C [id number] S [id number] [place] Supplemental Policy 0 [id number] Self 0 [place] MEDICARE PART B C [id number] S [id number] [place] Supplemental Policy 0 [id number] Self 0 [place] Supplemental Policy 0 [id number] Self 0 [place] Supplemental Policy 0 [id number] Self 0 [place] Supplemental Policy 0 [id number] Self 0 [place] Supplemental Policy 0 [id number] Self 0 MEDICAID - O/P EMERGENCY ROOM [id number] 18 [id number] MEDICARE -O/P [id number] 18 [id number] MEDICAID-O/P RAD [id number] HUMANA GOLD [id number] SP [id number] HUMANA GOLD PLUS -O/P [id number] 18 [id number] HUMANA GOLD [id number] SP [id number] [place] Supplemental Policy 0 [id number] Self 0 Humana Care Plan Other 0 [id number] Self 0 [place] Supplemental Policy 0 [id number] Self 0 Humana Care Plan Other 0 [id number] Self 0 [place] Supplemental Policy 0 [id number] Self 0 Humana Care Plan Other 0 [id number] Self 0 [place] Supplemental Policy 0 [id number] Self 0 Humana Care Plan Other 0 [id number] Self 0 [place] Supplemental Policy 0 [id number] Self 0 Humana Care Plan Other 0 [id number] Self 0 MEDICAID-O/P [id number] 18 [id number] MEDICARE PART A-O/P [id number] 18 [id number] [facility] MEDICAID CO [id number] 18 [id number] HUMANA MEDICARE HMO HM [id number] 18 [id number] [place] Supplemental Policy 0 [id number] Self 0 Humana Care Plan Other 0 [id number] Self 0 [place] Supplemental Policy 0 [id number] Self 0 Humana Care Plan Other 0 [id number] Self 0 [place] Supplemental Policy 0 [id number] Self 0 Humana Care Plan Other 0 [id number] Self 0 [place] Supplemental Policy 0 [id number] Self 0 Problems, Conditions, and Diagnoses Code Display Name Description Problem Type Effective Dates Data Source(s) 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 Diagnosis 12/13/2020 07:59:00 AM EDT [facility] I10 Essential (primary) hypertension Essential (primary) h ypertension Diagnosis 12/13/2020 07:59:00 AM EDT [facility] J0390 Acute tonsillitis, unspecified Acute tonsillitis, unsp ecified Diagnosis 12/13/2020 07:59:00 AM EDT [facility] J029 Acute pharyngitis, unspecified Acute pharyngitis, unsp ecified Diagnosis 12/13/2020 07:59:00 AM EDT [facility] Z98.61 Coronary angioplasty status Coronary angioplasty statu s Diagnosis 08/18/2020 01:16:41 PM EDT [facility] I10 Essential (primary) hypertension Essential (primary) h ypertension Diagnosis 08/18/2020 01:16:41 PM EDT [facility] E78.5 Hyperlipidemia, unspecified Hyperlipidemia, unspecifie d Diagnosis 08/18/2020 01:16:41 PM EDT [facility] 705.21 Hyperhidrosis Hyperhidrosis Problem 01/01/2020 12:00:00 AM [facility] ([facility]) 705.21 Hyperhidrosis Hyperhidrosis Problem 01/01/2020 12:00:00 AM [facility] ([facility]) 705.21 Hyperhidrosis Hyperhidrosis Problem 01/01/2020 12:00:00 AM [facility] ([facility]) 705.21 Hyperhidrosis Hyperhidrosis Problem 01/01/2020 12:00:00 AM [facility] ([facility]) Surgeries/Procedures Procedure Description Date Indications Data Source(s) HbA1c (Glycosolated) HbA1c (Glycosolated) 10/09/2020 12:00:00 AM ED T [place] ([facility]) HbA1c (Glycosolated) (waived laboratory) HbA1c (Glycos olated) (waived laboratory) 07/14/2020 12:00:00 AM EDT [place] ([facility]) COLLECTION VENOUS BLOOD VENIPUNCTURE BLOOD DRAW 07/14/2020 12:00: 00 AM EDT [facility]) HbA1c (Glycosolated) HbA1c (Glycosolated) 07/14/2020 12:00:00 AM ED T [place] ([facility]) ECG ROUTINE ECG W/LEAST 12 LDS W/I&R <td>POCT AMB EKG</td><td>Routine</td><td>02/12/2020 1:41 PM EST</td><td> Coronary angioplasty status</td><td> </td> 02/12/2020 06:41:00 PM EST Coronary angioplasty status [facility] Coronary angioplasty status Results ID Date Data Source [id number] 12/13/2020 07:59:00 AM EDT [facility] 1 OrderSheet [facility] Emergency Department [address] [place] [address] Phone #: ext- [phone] 12/13/2020 07:56 Patient: [...] rce(s) Supporting Document(s) ID Date Data Source [id number] 12/13/2020 07:59:00 AM EDT [facility] 1 Medication Reconciliation Report [facility] Emergency Department [address] [place] [address] Phone #: ext- [phone] 12/13/2020 07:56 Patient: TERESA WICK Sex: M : 1940 Age: 80yWeight: 108.8 kgHeight/Length: 67 in.BMI: 37.6ALLERGIES: No Known Drug AllergyThe patient's Home Medications are listed below:CONTINUE TAKING THE FOLLOWING MEDICATIONS: Aspirin EC Oral (81 mg) 1 tablet, daily, last dose: 790780 2188 Atenolol Oral (50 mg) 1 tablet, 2x a day, last dose: 497585 7699 Esomeprazole Magnesium Oral (40 mg) 1 capsule, daily, last dose: 112588 1605 Fenofibrate Oral (48 mg) 1 tablet, bedtime, last dose: 5070226 Hydrochlorothiazide Oral (25 mg) 1 tablet, daily, last dose: 625512 0886 Losartan Potassium Oral (50 mg) 1 tablet, daily, last dose: 538283 2331 Potassium Chloride ER Oral (20 meq) 1 tablet, bedtime, last dose: 076591 4019 Travatan Z Ophthalmic (0.004 %) 1 drop, last dose: 046555 5055 Vitamin D Oral 00063 units, every two weeksThe source(s) of the original Home Medication information:Not obtained.The following Medications were given to the patient in the Emergency Department:None.The following Medications were prescribed to the patient:None. Name Value Range Interpretation Code Description Data Danya e(s) Supporting Document(s) ID Date Data Source [id number] 12/13/2020 07:59:00 AM EDT [facility] 1 Medication Administration Record [facility] Emergency Department [address] [place] [address] Phone #: ext- [phone] 12/13/2020 07:56 Patient: TERESA WICK Sex: M : 1940 Age: 80yWeight: 108.8 kgHeight/Length: 67 inBMI: 37.6ALLERGIES: No Known Drug AllergyDate/Time Medication Administered Medication Ordered Name Value Range Interpretation Code Description Data [facility](s) Supporting Document(s) ID Date Data Source [id number] 12/13/2020 07:59:00 AM EDT [facility] 1 General Instructions [facility] Emergency Department [address] [place] [address] Bernadette ne #: ext [phone] 12/13/2020 07:56 Patient: TERESA WICK Sex: M [...] 1 drop, Last: 5070226.Vitamin D Oral : 92027 units every two weeks.Follow- up:Follow up with your healthcare provider Tuesday. Reason for referral: evaluation. Summary of careprovided to patient via paper. Blood pressure screening was not performed during this visit because thepatient has an active diagnosis of hypertension. The patient should follow up with a primary care providerfor blood pressure management. ADDITIONAL INFORMATIONAcute Viral Pharyngitis (Sore Throat) 2 General Instructions [facility] Emergency Department [address] [place] [address] Phone #: ext- [phone] 12/13/2020 07:56 Patient: [...] throat pain. Dissolve 02/22 3 General Instructions [facility] Emergency Department [address] [place] [address] Phone #: ext- [phone] 12/13/2020 07:56 Patient: [...] any of these occur: 4 General Instructions [facility] Emergency Department [address] [place] [address] Phone #: ext- [phone] 12/13/2020 07:56 Patient: [...] 101F (38.3C) or higher 5 General Instructions [facility] Emergency Department [address] [place] [address] Phone #: ext- [phone] 12/13/2020 07:56 Patient: [...] in a child age 2 or older [employer]. [address] [place] [address], [place] [address]. All rights reserved. This information is not intended as asubstitute for professional medical care. Always follow your healthcare professional's instructions. You have been given the following additional information: Pharyngitis, Viral(Electronically signed by Gisele Fischer 12/13/2020 13:44) Name Value Range Interpretation Code Description Data Dayna rce(s) Supporting Document(s) ID Date Data Source [id number] 12/13/2020 07:59:00 AM EDT [facility] 1 Clinical Report - Nurses [facility] Emergency Department [address] [place] [address] Phone #: ext- [phone] 12/13/2020 07:56 Patient: TERESA WICK Sex: M : 1940 Age: 80yTRIAGEArrived by private vehicle. Historian: patient. Accompanied by family.Acuity: LEVEL 4.Chief Complaint: SORE THROAT and (swollen glands).Onset. (1 weeks ago). ( pt states he has had a sore throat and feels that his glands are also swollen andnot getting any better).Treatment REJOINER:Took Tylenol. (0630).SEPSIS SCREEN: SIRS SCREEN NEGATIVE. SEPSIS [...] 81 mg) 1 tablet, daily, last dose 615657 7134. Atenolol Oral (Tablet 50 mg) 1 tablet, 2x a day, last dose 933893 0962. Esomeprazole Magnesium Oral (Capsule Delayed Release 40 mg) 1 capsule, daily, last dose 0377687955. Fenofibrate Oral (Tablet 48 mg) 1 tablet, bedtime, last dose 261494 8647. Hydrochlorothiazide Oral (Tablet 25 mg) 1 tablet, daily, last dose 612397 9459. Losartan Potassium Oral (Tablet 50 mg) 1 tablet, daily, last dose 950184 4355. Potassium Chloride ER Oral (Tablet Extended Release 20 meq) 1 tablet, bedtime, last dose 5777076835. --08:12/13/20 Ming Wilcox RN Travatan Z Ophthalmic (Solution 0.004 %) 1 drop, last dose 021948 8498. Vitamin D Oral 73444 units, every two weeks. --08:12/13/20 Ming Wilcox RN.AllergiesNo Known Drug Allergy. --08:12/13/20 Ming Wilcox RN. 2 Clinical Report - Nurses [facility] Emergency Department [address] [place] [address] Phone #: ext- [phone] 12/13/2020 07:56 Patient: [...] bed on. 3 Clinical Report - Nurses [facility] Emergency Department [address] [place] [address] Phone #: ext- [phone] 12/13/2020 07:56 Patient: TERESA WICK [facility]#: [id number] Sex: M : 1940 Age: 80y Patient ready for evaluation- ED physician notified. --08:09 12/13/20 Ming Wilcox RN shoe trimmer placed on patient; ceramic restorer- Lead II; monitor alarms on. --08:16 12/13/20 Ming Wilcox RN 09:00 12/13/20. BP: 148/73. MAP: 98. HR: 70. RR: 18. O2 saturation: 98%. --10:09 12/13/20 [facility] [employer].DISPOSITION / DISCHARGE 10:09 12/13/20. BP: 155/78. HR: 68. RR: 19. O2 saturation: 98%. Temp: 98.6 F. Pain level now 6/10. --10:09 12/13/20 [facility] [employer] Tech1 10:47 12/13/20. Condition at departure: improved and stable. Discharge instructions provided and reviewed with the patient. Patient verbalized understanding. Written instructions provided in Israeli. The patient was discharged by the physician. He was discharged home and accompanied by family. He left ambulatory and via private vehicle. Family member driving. --10:49 12/13/20 Ming Wilcox RN.Locked/Released at 12/13/2020 10:50 by Ming Wilcox RN Name Value Range Interpretation Code Description Data Dayna rce(s) Supporting Document(s) ID Date Data Source [id number] 12/13/2020 07:59:00 AM EDT [facility] 1 Clinical Report - Physicians/Mid Levels [facility] Emergency Department [address] [place] [address] Phone #: ext- [phone] 12/13/2020 07:56 Patient: TERESA WICKN: [id number] Sex: M : 1940 Age: 80y Time [...] (Solution 0.004 %) 1 drop, last dose 845336 6069. Vitamin D Oral 74384 units, every two weeks. Aspirin EC Oral (Tablet Delayed Release 81 mg) 1 tablet, daily, last dose 057681 3207. Atenolol Oral (Tablet 50 mg) 1 tablet, 2x a day, last dose 260695 2965. Esomeprazole Magnesium Oral (Capsule Delayed Release 40 mg) 1 capsule, daily, last dose 395829 0256. Fenofibrate Oral (Tablet 48 mg) 1 tablet , bedtime, last dose 081180 8709. Hydrochlorothiazide Oral (Tablet 25 mg) 1 tablet, daily, last dose 077526 9210. Losartan Potassium Oral (Tablet 50 mg) 1 tablet, daily, last dose 140866 2578. Potassium Chloride ER Oral (Tablet Extended Release 20 meq) 1 tablet, bedtime, last dose 117485 2 Clinical Report - Physicians/Mid Levels [facility] Emergency Department [address] [place] [address] Phone #: ext- [phone] 12/13/2020 07:56 [id number] Sex: M : 1940 Age: 80y 2100. [...] PROCEDURAL CONTROL VALID ){ KIT LOT # [id number] ){ KIT EXP DATE 03.20.22 )The Strep [...] Throat 3 Clinical Report - Physicians/Mid Levels [facility] Emergency Department [address] [place] [address] Phone #: ext- [phone] 12/13/2020 07:56 Patient: [...] drop, Last: 5070226. Vitamin D Oral : 48433 units every two weeks. Follow-up: Follow up with your healthcare provider Tuesday. Reason for referral: evaluation. Summary of care provided to patient via paper. Blood pressure screening was not performed during this visit because the patient has an active diagnosis of hypertension. The patient should follow up with a primary care provider for blood pressure management. 4 Clinical Report - Physicians/Mid Levels [facility] Emergency Department [address] [place] [address] Phone #: ext- [phone] 12/13/2020 07:56 Patient: TERESA WICK Sex: M : 1940 Age: 80y(Electronically signed by Gisele Fischer 12/13/2020 13:44) Name Value Range Interpretation Code Description Data Dayna rce(s) Supporting Document(s) ID Date Data Source [id number] 12/16/2020 06:29:00 AM EDT [facility] Name Value Range Interpretation Code Description Data Dayna rce(s) Supporting Document(s) CULTURE UPPER RESPIRATORY [facility] _CULTURE UPPER RESPIRATORY_$$[id number]$$[id number]$$[id number]$$[id number]$$[id number]$$[id number]$$[id number] DATE/TIME: 12/15/2020 13:05Culture: CULTURE UPPER RESPIRATORY Status: FinalUpper Respiratory Culture: [id number] respiratory floraP1 Test performed by: [facility] #: [id number] [address] [facility] [id number] [facility] [id number] Director : Kermit Rodriguez MD NPI #:Load Mixer : [email or web address] REF ID Date Data Source [id number] 12/13/2020 08:48:00 AM EDT [facility] Name Value Range Interpretation Code Description Data Dayna rce(s) Supporting Document(s) RAPID STREP NEGATIVE NORMAL: NEGATIVE [facility] RAPID STREP REENTER NEGATIVE NORMAL: NEGATIVE [facility] { PROCEDURAL CONTROL VALID ){ KIT LOT # [id number] ){ KIT EXP DATE 03.20.22 )The Strep [...] basis for treatment. ID Date Data Source [id number] 11/09/2020 11:47:00 PM EDT [facility] Name Value Range Interpretation Code Description Data Dayna rce(s) Supporting Document(s) SARS coronavirus 2 RNA [Presence] in Res piratory specimen by DANNY with probe detection NEGATIVE [facility] This lab was ordered by [facility] a nd reported by [facility]. ID Date Data Source [id number] 07/14/2020 09:28:00 AM EDT [place] ([facility]) Name Value Range Interpretation Code Description Data Dayna rce(s) Supporting Document(s) Hemoglobin A1c/Hemoglobin.total in Blood 6.6 Abnormal (applies to non-numeric results) HbA1C [place] ([facility]) ID Date Data Source [id number] 07/14/2020 09:27:00 AM EDT [place] ([facility]) Name Value Range Interpretation Code Description Data Dayna rce(s) Supporting Document(s) Glucose [Mass/volume] in Urine collected for unspecified duratio n 170 Abnormal (applies to non-numeric results) Glucose [place] ([facility]) ID Date Data Source [id number] 03/26/2020 06:17:00 AM EST [place] ([facility]) Name Value Range Interpretation Code Description Data Dayna rce(s) Supporting Document(s) Reported Physicians See Note Reported Physici ans [place] ([facility]) Note: Reported Physicians:Ordering: Kenna CamposAttending: Kenna SánchezCopdonovan To: Eliazar Sánchezjack [facility] hospitalCop[facility]ovan To: Aleyda Valdez ID Date Data Source [id number] 03/26/2020 06:17:00 AM EST [place] ([facility]) Name Value Range Interpretation Code Description Data Dayna rce(s) Supporting Document(s) MALB URINE SIEMENS 44.4 MG/L Normal MALB URINE SIEMEN S [place] ([facility]) CREATININE, URINE 72.6 MG/DL Normal CREATININE, URINE [place] ([facility]) EDE/CREAT RATIO 61.1 MCG/MG Above high normal EDE/CREAT RA NIA [place] ([facility]) Note: THE [employer] [employer] [place] [employer] STATES THAT MICROALBUMINURIA IS PRESENT IF THE MICROALBUMIN/CREATININE RATIO EXCEEDS 30 MCG/MG. THE THRESHOLD FOR CLINICAL ALBUMINURIA IS REACHED AT 300 MCG/MG. THE CLASSIFICATION OF A PATIENT SHOULD BE BASED UPON AT LEAST 2 OF 3 ABNORMAL RESULTS ON SPECIMENS COLLECTED WITHIN A 3 TO 6 MONTH TIME FRAME. ID Date Data Source [id number] 03/26/2020 06:14:00 AM EST [place] ([facility]) Name Value Range Interpretation Code Description Data Dayna rce(s) Supporting Document(s) Reported Physicians See Note Reported Physici ans [place] ([facility]) Note: Reported Physicians:Ordering: Ralph as, JamaicaAttending: [place], [place]Copy To: [place], JamaicaCopy To: Aleyda Valdez ID Date Data Source [id number] 03/26/2020 06:14:00 AM [facility] ([facility]) Name Value Range Interpretation Code Description Data [facility] rce(s) Supporting Document(s) WHITE BLOOD COUNT 6.0 3/uL Normal WHITE BLOOD COUNT [place] ([facility]) Hemoglobin [Mass/volume] in Mixed venous blood by Oximetry 14.3 g/d l Normal HEMOGLOBIN [place] ([facility]) Hematocrit [Pure volume fraction] of Blood by Automated count 41 .9 % Below low normal HEMATOCRIT [facility]) RED BLOOD COUNT 4.81 6/uL Normal [facility] BLO[facility] ([facility]) RED CELL DISTRIBUTION WIDTH 13.2 % Normal RED CELL DISTRIBUTION WIDTH [facility]) MEAN CORPUSCULAR VOLUME 87.1 fl Normal MEAN CORPUSC ULAR VOLUME [facility]) MEAN CORPUSCULAR HEMOGLOBIN 29.7 pg Normal MEAN COR PUSCULAR HEMOGLOBIN [place] ([facility]) MEAN CORPUSCULAR HGB CONC 34.1 g/dl Normal MEAN CORPU SCULAR HGB CONC [place] ([facility]) NUCLEATED RED BLOOD CELL % 0.0 % Normal NUCLEATED RED BLOOD CELL % [place] ([facility]) PLATELET COUNT, AUTOMATED 155 3/uL Normal PLATELET C OUNT, AUTOMATED [place] ([facility]) ID Date Data Source [id number] 03/26/2020 06:14:00 AM EST [place] ([facility]) Name Value Range Interpretation Code Description Data [facility] rce(s) Supporting Document(s) Reported Physicians See Note Reported Physici ans [place] ([facility]) Note: Reported Physicians:Ordering: Ralph as, JamaicaAttending: Gonzalo, JamaicaCopy To: Gonzalo, JamaicaCopy To: Aleyda Valdez ID Date Data Source [id number] 03/26/2020 06:14:00 AM EST [place] ([facility]) Name Value Range Interpretation Code Description Data Dayna rce(s) Supporting Document(s) TOTAL 25(OH) VITAMIN D 46.0 NG/ML Normal TOTAL 25(OH) VITAMIN D [place] ([facility]) ID Date Data Source [id number] 03/26/2020 06:14:00 AM EST [place] ([facility]) Name Value Range Interpretation Code Description Data Dayna rce(s) Supporting Document(s) Reported Physicians See Note Reported Physic ans [place] ([facility]) Note: Reported Physicians:Ordering: Ralph asEliazaricaAttending: Gonzalo, JamaicaCopy To: [place], [place]Copy To: Aleyda Valdez ID Date Data Source [id number] 03/26/2020 06:14:00 AM EST [place] ([facility]) Name Value Range Interpretation Code Description Data Dayna rce(s) Supporting Document(s) TRIGLYCERIDES LEVEL 115 MG/DL Normal TRIGLYCERIDES LE KATHY [place] ([facility]) HDL CHOLESTEROL 33 MG/DL Below low normal HDL CHOLESTERO L [place] ([facility]) CHOLESTEROL LEVEL 137 MG/DL Normal CHOLESTEROL LEVEL [place] ([facility]) NON-HDL-C 104 MG/DL Normal NON-HDL-C [place] ([facility]) LDL CHOLESTEROL 81 MG/DL Normal LDL [facility]LESTEROL [facility]) CHOLESTEROL RISK RATIO 4.151 Normal CHOLESTEROL R ISK RATIO [place] ([facility]) ID Date Data Source [id number] 03/26/2020 06:14:00 AM EST [place] ([facility]) Name Value Range Interpretation Code Description Data Dayna rce(s) Supporting Document(s) Reported Physicians See Note Reported Physic ans [place] ([facility]) Note: Reported Physicians:Ordering: Ralph as JamaicaAttending: Gonzalo, [place]Copy To: [place], [place]Copy To: Aleyda Valdez ID Date Data Source [id number] 03/26/2020 06:14:00 AM EST [place] ([facility]) Name Value Range Interpretation Code Description Data Dayna rce(s) Supporting Document(s) GLUCOSE, FASTING 131 MG/DL Above high normal GLUCOSE, FAS TING [place] ([facility]) BLOOD UREA NITROGEN 19 MG/DL Above high normal BLOOD URE A NITROGEN [facility]) GLOMERULAR FILTRATION RATE 58.2 Normal GLOMERULA R FILTRATION RATE [facility]) Note: Units are mL/min/1.73 m2 Chroni c Kidney Disease Staging per NKF: Stage I & II GFR >=60 Normal to Mildly Decreased Stage III GFR 30- 59 Moderately Decreased Stage IV GFR 15-29 Severely Decreased Stage V GFR <15 Very Little GFR Left ESRD GFR <15 on DAIRY NUTRITIONIST CREATININE FOR GFR 1.27 MG/DL Normal CREATININE FOR GF R [facility]) SODIUM LEVEL 140 MEQ/L Normal SODIUM LEVEL [facility]) POTASSIUM SERUM 3.9 MEQ/L Normal POTASSIUM SERUM [facility]) CHLORIDE LEVEL 105 MEQ/L Normal CHLORIDE LEVEL [facility]) CARBON DIOXIDE LEVEL 29 MEQ/L Normal CARBON DIOXIDE LEVEL [facility]) CALCIUM LEVEL 9.3 MG/DL Normal CALCIUM LEVEL [facility]) Anion gap in Body fluid 6 MEQ/L Below low normal ANION GAP [facility]) ALT/SGPT 35 U/L Normal ALT/SGPT [facility]) Alkaline phosphatase [Enzymatic activity/volume] in Se rum, Plasma or Blood 44 U/L Below low normal ALKALINE PHOSPHATASE [facility]) BILIRUBIN,TOTAL 0.6 MG/DL Normal BILIRUBIN,TOTAL [facility]) AST/SGOT 19 U/L Normal AST/SGOT [facility]) ALBUMIN/GLOBULIN RATIO 1.5 Normal ALBUMIN/GLOBU TOVA RATIO [facility]) Albumin [Mass/volume] in Blood by Bromocresol purple ( BCP) dye binding method 4.0 GM/DL Normal ALBUMIN [facility]) TOTAL PROTEIN 6.7 GM/DL Normal TOTAL PROTEIN [facility]) ID Date Data Source [id number] 01/01/2020 01:41:00 PM EST [place] ([facility]) Name Value Range Interpretation Code Description Data Dayna rce(s) Supporting Document(s) Glucose [Mass/volume] in Urine collected for unspecified duration 1 30 Normal Glucose [place] ([facility]) ID Date Data Source [id number] 01/01/2020 01:40:00 PM EST [place] ([facility]) Name Value Range Interpretation Code Description Data Dayna rce(s) Supporting Document(s) Hemoglobin A1c/Hemoglobin.total in Blood 6.6 Abnormal (applies to non-numeric results) HbA1C [place] ([facility]) Procedure Social History No Information Vital Signs ID Date Data Source UNK Name Value Range Interpretation Code Description Data Source(s) Heart rate 68 /min 68 /min [place] [facility] Respiratory rate 24 /min 24 /min [place] ([facility]) Body temperature 98.2 [degF] 98.2 [degF] [facility] ([facility]) Body height 64.5 [in_i] 64.5 [in_i] [place] ([facility]) Body weight 267 [lb_av] 267 [lb_av] [place] ([facility]) Body mass index (BMI) [Ratio] 45.1 kg/m2 45.1 k g/m2 [place] ([facility]) Body surface area Derived from formula 2.22 m2 2.22 m2 [place] ([facility]) Oxygen saturation in Arterial blood by Pulse oximetry 97 % 97 % [place] ([facility]) Systolic blood pressure 138 mm[Hg] 138 mm[Hg] [facility] ([facility]) Diastolic blood pressure 90 mm[Hg] 90 mm[Hg] [place] ([facility]) Systolic blood pressure 126 mm[Hg] 126 mm[Hg] [facility] Diastolic blood pressure 76 mm[Hg] 76 mm[Hg] [facility] Heart rate 68 /min 68 /min [facility] Respiratory rate 16 /min 16 /min [facility] Body height 165.1 cm 165.1 cm [facility] Body weight 121.11 kg 121.11 kg [facility] Body mass index (BMI) [Ratio] 44.43 kg/m2 44.43 kg/m2 [facility] Body height 64.5 [in_i] 64.5 [in_i] [facility] ([facility]) Body weight 264 [lb_av] 264 [lb_av] [place] ([facility]) Body mass index (BMI) [Ratio] 44.6 kg/m2 44.6 k g/m2 [place] ([facility]) Heart rate 63 /min 63 /min [place] [facility] Respiratory rate 22 /min 22 /min [place] ([facility]) Body temperature 95.7 [degF] 95.7 [degF] [facility] ([facility]) Body surface area Derived from formula 2.21 m2 2.21 m2 [place] ([facility]) Oxygen saturation in Arterial blood by Pulse oximetry 97 % 97 % [place] ([facility]) Inhaled oxygen flow rate 0 L/min 0 L/min [place] ([facility]) Inhaled oxygen concentration 21 % 21 % [place] ([facility]) Systolic blood pressure 134 mm[Hg] 134 mm[Hg] [facility] Diastolic blood pressure 74 mm[Hg] 74 mm[Hg] [place] ([facility]) Systolic blood pressure 132 mm[Hg] 132 mm[Hg] [facility] Diastolic blood pressure 80 mm[Hg] 80 mm[Hg] [facility] Heart rate 64 /min 64 /min [facility] Respiratory rate 16 /min 16 /min [facility] Body height 165.1 cm 165.1 cm [facility] Body weight 118.842 kg 118.842 kg [facility] Body mass index (BMI) [Ratio] 43.60 kg/m2 43.60 kg/m2 [facility] Heart rate 78 /min 78 /min [place] ([facility]) Respiratory rate 22 /min 22 /min [place] ([facility]) Body temperature 96.9 [degF] 96.9 [degF] [facility] ([facility]) Body height 64.5 [in_i] 64.5 [in_i] [place] ([facility]) Body weight 263 [lb_av] 263 [lb_av] [place] ([facility]) Body mass index (BMI) [Ratio] 44.4 kg/m2 44.4 k g/m2 [place] ([facility]) Body surface area Derived from formula 2.21 m2 2.21 m2 [place] ([facility]) Oxygen saturation in Arterial blood by Pulse oximetry 95 % 95 % [place] ([facility]) Inhaled oxygen flow rate 0 L/min 0 L/min [place] ([facility]) Inhaled oxygen concentration 21 % 21 % [place] ([facility]) Systolic blood pressure 138 mm[Hg] 138 mm[Hg] [facility]) Diastolic blood pressure 78 mm[Hg] 78 mm[Hg] [place] ([facility]) Patient Treatment Plan of Care Planned Activity Planned Date Details Description Data Source (s) Accu-Chek Soft Touch Lancets Miscellaneous 10/09/2020 12:00:00 AM E DT [place] ([facility]) Ergocalciferol [id number] UNT Oral Capsule [Drisdol] 10/09/2020 12:00:00 AM EDT [place] ([facility]) Fenofibrate 48 MG Oral Tablet 10/09/2020 12:00:00 AM EDT [place] ([facility]) Hydrochlorothiazide 25 MG Oral Tablet 10/09/2020 12:00:00 AM EDT [place] ([facility]) Klor-Con M20 20 MEQ Oral Tablet Extended Release 10/09/2020 12:00:0 0 AM EDT [place] ([facility]) Losartan Potassium 100 MG Oral Tablet 10/09/2020 12:00:00 AM EDT [facility]) Metformin hydrochloride 500 MG Oral Tablet 10/09/2020 12:00:00 AM E [facility] ([facility]) Esomeprazole 40 MG Delayed Release Oral Capsule [Nexiu m] 10/09/2020 12:00:00 AM EDT [place] ([facility]) Simvastatin 80 MG Oral Tablet 10/09/2020 12:00:00 AM EDT [place] ([facility]) SM Aspirin Adult Low Strength 81 MG Oral Tablet Delaye d Release 10/09/2020 12:00:00 AM EDT [place] ([facility]) Atenolol 50 MG Oral Tablet [Tenormin] 10/09/2020 12:00:00 AM T [facility]) Fenofibrate 48 MG Oral Tablet 08/07/2020 12:00:00 AM [facility]) Ergocalciferol [id number] UNT Oral Capsule [Drisdol] 07/14/2020 12:00:00 AM T [facility]) Accu-Chek Soft Touch Lancets Miscellaneous 07/14/2020 12:00:00 AM E [facility] ([facility]) Fenofibrate 48 MG Oral Tablet 07/14/2020 12:00:00 AM [facility]) Hydrochlorothiazide 25 MG Oral Tablet 07/14/2020 12:00:00 AM [facility]) Klor-Con M20 20 MEQ Oral Tablet Extended Release 07/14/2020 [facility] Losartan Potassium 100 MG Oral Tablet 07/14/2020 12:00:00 AM T [place] ([facility]) Metformin hydrochloride 500 MG Oral Tablet 07/14/2020 12:00:00 AM E [facility] ([facility]) Esomeprazole 40 MG Delayed Release Oral Capsule [Nexiu m] 07/14/2020 12:00:00 AM EDT [place] ([facility]) Simvastatin 80 MG Oral Tablet 07/14/2020 12:00:00 AM [facility] ([facility]) Ergocalciferol [id number] UNT Oral Capsule [Drisdol] 07/14/2020 12:00:00 AM EDT [place] ([facility]) Atenolol 50 MG Oral Tablet [Tenormin] 07/14/2020 12:00:00 AM [facility] ([facility]) Accu-Chek Yi Plus In Vitro Strip 07/14/2020 12:00:00 AM EDT [place] ([facility]) SM Aspirin Adult Low Strength 81 MG Oral Tablet Delaye d Release 07/10/2020 12:00:00 AM [facility] ([facility]) Ergocalciferol [id number] UNT Oral Capsule [Drisdol] 2020 12:00:00 AM [facility] ([facility]) Aspirin Adult Low Strength 81 MG Oral Tablet Delayed R elease 2020 12:00:00 AM [facility] ([facility]) Fenofibrate 48 MG Oral Tablet 04/22/2020 12:00:00 AM [facility] ([facility]) Ergocalciferol [id number] UNT Oral Capsule [Drisdol] 04/16/2020 12:00:00 AM [facility] ([facility]) Hydrochlorothiazide 25 MG Oral Tablet 04/16/2020 12:00:00 AM [facility]) Klor-Con M20 20 MEQ Oral Tablet Extended Release 04/16/2020 12:00:0 0 AM [facility] ([facility]) Losartan Potassium 100 MG Oral Tablet 04/16/2020 12:00:00 AM [facility] ([facility]) Metformin hydrochloride 500 MG Oral Tablet 04/16/2020 12:00:[address] [place] ([facility]) Esomeprazole 40 MG Delayed Release Oral Capsule [Nexiu m] 04/16/2020 12:00:00 AM [facility] ([facility]) Simvastatin 80 MG Oral Tablet 04/16/2020 12:00:00 AM [facility] ([facility]) Atenolol 50 MG Oral Tablet [Tenormin] 04/16/2020 12:00:00 AM [facility] ([facility]) Fenofibrate 48 MG Oral Tablet [Tricor] 04/16/2020 12:00:00 AM [facility] ([facility]) Aspirin Adult Low Strength 81 MG Oral Tablet Delayed R elease 04/16/2020 12:00:00 AM [facility] ([facility]) Fenofibrate 48 MG Oral Tablet 01/02/2020 12:00:00 AM [facility] Losartan Potassium 100 MG Oral Tablet 01/02/2020 12:00:00 AM [facility] Ergocalciferol [id number] UNT Oral Capsule [Drisdol] 01/01/2020 12:00:00 AM [facility]) Accu-Chek Yi Plus In Vitro Strip 01/01/2020 12:00:00 AM [facility]) Hydrochlorothiazide 25 MG Oral Tablet 01/01/2020 12:00:00 AM [facility]) Klor-Con M20 20 MEQ Oral Tablet Extended Release 01/01/2020 12:00:0 0 AM [facility] ([facility]) Losartan Potassium 100 MG Oral Tablet 01/01/2020 12:00:00 AM [facility] ([facility]) Metformin hydrochloride 500 MG Oral Tablet 01/01/2020 12:00:00 AM E [facility] ([facility]) Esomeprazole 40 MG Delayed Release Oral Capsule [Nexiu m] 01/01/2020 12:00:00 AM [facility] ([facility]) Simvastatin 80 MG Oral Tablet 01/01/2020 12:00:00 AM [facility] ([facility]) Atenolol 50 MG Oral Tablet [Tenormin] 01/01/2020 12:00:00 AM [facility] ([facility]) Fenofibrate 48 MG Oral Tablet [Tricor] 01/01/2020 12:00:00 AM [facility] ([facility]) Aspirin 81 MG Delayed Release Oral Tablet [Ecotrin] 01/01/20 20 12:00:00 AM EST [place] ([facility]) Metformin hydrochloride 500 MG Oral Tablet 11/15/2019 12:00:00 AM E [facility] ([facility]) Losartan Potassium 100 MG Oral Tablet 10/18/2019 12:00:00 AM EDT [facility]) Accu-Chek Soft Touch Lancets Miscellaneous 10/02/2019 12:00:00 AM E [facility] ([facility]) Ergocalciferol [id number] UNT Oral Capsule [Drisdol] 10/02/2019 12:00:00 AM EDT [place] ([facility]) Hydrochlorothiazide 25 MG Oral Tablet 10/02/2019 12:00:00 AM EDT [facility]) Klor-Con M20 20 MEQ Oral Tablet Extended Release 10/02/2019 12:00:0 0 AM EDT [place] ([facility]) Losartan Potassium 50 MG Oral Tablet 10/02/2019 12:00:00 AM EDT [facility]) Metformin hydrochloride 500 MG Oral Tablet 10/02/2019 12:00:00 AM E [facility] ([facility]) Esomeprazole 40 MG Delayed Release Oral Capsule [Nexiu m] 10/02/2019 12:00:[address] [facility]) Simvastatin 80 MG Oral Tablet 10/02/2019 12:00:00 AM EDT [facility]) Atenolol 50 MG Oral Tablet [Tenormin] 10/02/2019 12:00:00 AM EDT [facility]) Fenofibrate 48 MG Oral Tablet [Tricor] 10/02/2019 12:00:00 AM EDT [facility]) Accu-Chek Yi Plus In Vitro Strip 09/04/2019 12:00:00 AM EDT [facility]) Aspirin 81 MG Delayed Release Oral Tablet [Ecotrin] 08/15/19 20 12:00:00 AM EDT [place] ([facility]) Losartan Potassium 25 MG Oral Tablet [facility] Fenofibrate 67 MG Oral Capsule [facility]
--- NOTE | 2020-12-16 15:57 | ECGEPIP ---
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
[2020-12-16 16:00] VITALS: BP 146/74
--- NOTE | 2020-12-16 16:02 | ECGEPIP ---
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
[2020-12-16] MEDS ORDERED: MORPHINE 2 MG/ML 1ML VIAL (J2270) IV ONE (16:15)
[2020-12-16] MEDS ORDERED: GI COCKTAIL 50ML BTL(HYOSCYAMINE/MAALOX/LIDOCAINE VISCOUS)(1:3:1) PO ONE (16:15)
[2020-12-16] MEDS ORDERED: NITROGLYCERIN 0.4 MG SUBL TABLET SL STA (16:15)
[2020-12-16] MEDS ORDERED: PANTOPRAZOLE 40MG VIAL (C9113 PER 1) IV ONE (16:20)
[2020-12-16] MEDS ORDERED: METOPROLOL TART 25 MG TABLET PO ONE (16:20)
[2020-12-16] MEDS ORDERED: SUCRALFATE SUSP 1GM/10ML UD PO ONE (16:20)
[2020-12-16] MEDS: METOCLOPRAMIDE 10 MG TAB PO SCH ×2 (16:26→20:35)
[2020-12-16] MEDS: MULTIVITAMINS/MINERALS THERAP 1 TAB PO SCH (16:44)
[2020-12-16] MEDS: NS 1,000 ML IV SCH ×2 (16:48→23:40)
[2020-12-16] MEDS: NITROGLYCERIN 0.4 MG SUBL TABLET SL SCH ×2 (16:50→16:52)
[2020-12-16] MEDS ORDERED: GI COCKTAIL 50ML BTL(HYOSCYAMINE/MAALOX/LIDOCAINE VISCOUS)(1:3:1) PO PRN (17:10)
[2020-12-16 17:43] LABS: C REACTIVE PROTEIN QUANTITATIV 3.51 MG/DL (0.00-0.30)
[2020-12-16 17:44] LABS: CK-MB VALUE MASS 4.1 NG/ML (<3.6); MB/CK RELATIVE INDEX 6.51 (< OR =4); TROPONIN I 0.28 NG/ML (< 0.10)
[2020-12-16] MEDS ORDERED: SUCRALFATE 1 GM TAB PO SCH (18:00)
[2020-12-16] MEDS: amLODIPine 5 MG TAB PO SCH (18:52)
--- NOTE | 2020-12-16 19:02 | HPEPDOC ---
[facility] Medical History & Physical Date of Admission Dec 16, 2020 Date of Service: Dec 16, 2020 History and Physical CHIEF COMPLAINT: Epigastric abdominal pain HISTORY OF PRESENT ILLNESS: 80-year-old male with history of delayed gastric emptying of unknown etiology evaluated by general surgeon Dr. Garcia last October 2020 with no ulcer on an upper GI series, chronic coronary artery disease with stent placed in 2015, presents to the emergency room today due to 4 to 5 days of epigastric abdominal pain without radiation described as sharp 10 out of 10 scale, slightly improved with Tylenol 2 tablets bringing it down to 5 out of 10 pain, accompanied with decreased appetite without nausea, weight loss, or vomiting. Patient does not have pleuritic chest pain, shortness of breath, fever, chills, cough, but admits to having diaphoresis when it occurs which last for several minutes and abates. Patient's pain is not exertional, and he denies any coffee-ground emesis bright red blood per rectum melena or black tarry stools. In the emergency room, EKG was sinus rhythm with nonspecific ST-T wave changes, troponin was 0.20, CT chest had no PE, pneumonia, effusion. CT abdomen and pelvis showed mild pancreatic head pancreatitis causing mild duodenitis. Hospitalist was asked to admit the patient for mild acute pancreatitis/duodenitis. 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 History of prostate cancer status post robotic assisted radical prostatectomy Gastroesophageal reflux disease Fatty liver Obesity BMI of 39.7 History of hepatitis A Chronic bilateral epididymitis status post bilateral epididymectomies Small vessel ischemic disease PAST SURGICAL HISTORY: Appendectomy History of prostate cancer status post robotic assisted radical prostatectomy Cholecystectomy Chronic bilateral epididymitis status post bilateral epididymectomies Coronary artery stent placed in 2016 SOCIAL HISTORY: Former Former smoker Lives with his brother FAMILY HISTORY: Father colon cancer CAD diabetes Mother diabetes coronary artery disease breast cancer Brother coronary artery disease ALLERGIES: Please see below. REVIEW OF SYSTEMS: 10 point review of systems negative aside from positive findings in HPI HOME MEDICATIONS: Please see below. PHYSICAL EXAMINATION: VITAL SIGNS: See below GENERAL APPEARANCE: No cyanosis, respiratory distress, pallor, icterus, or jaundice HEENT: Moist mucous membranes pupils equally round reactive to light and accommodation extract muscles intact no thyromegaly cervical lymphadenopathy or jugular venous distention CARDIOVASCULAR: S1-S2 regular rate rhythm nondisplaced point of maximal impulse no S3 no murmurs noted LUNGS: Clear to auscultation no wheezing rales or rhonchi air entry is equal inspiratory expiratory ratio 1:2 ABDOMEN: Obese distended epigastric tenderness no rebound guarding normoactive bowel sounds no hepatosplenomegaly no CVA tenderness EXTREMITIES: No cyanosis or clubbing LABORATORY DATA: See below. IMAGING: See below MICROBIOLOGY: Please see below. ASSESSMENT: 80-year-old male presents with 4 to 5-day history of epigastric a bdominal pain without radiation with history of delayed gastric emptying, coronary artery disease status post stent admitted for duodenitis acute pancreatitis, and abnormal cardiac markers rule out acute coronary syndrome as an inpatient for 2 midnights Acute duodenitis/pancreatitis Patient is admitted as an inpatient for IV fluids, antiemetics, motility agent such as Reglan, as needed pain meds. Advance diet as tolerated. Continue on PPI and Carafate. History of coronary artery disease status post stent in 2016/abnormal cardiac markers rule out acute coronary syndrome Continue on telemetry monitoring, serial EKG, aspirin, as needed morphine, as needed nitroglycerin, and beta-vladimir. Hypertension Continue on home medications with holding parameters Noninsulin-dependent type 2 diabetes Started on clear liquid diet this evening may advance tomorrow if pain is controlled to consistent carbohydrate 2 g sodium diet. Fingersticks QA [facility] with insulin coverage per [facility] protocol History of nontoxic multinodular goiter History of prostate cancer status post robotic assisted radical prostatectomy Gastroesophageal reflux disease On Protonix twice daily and Carafate Fatty liver/ Obesity BMI of 39.7 Complicating care Small vessel ischemic disease On aspirin Vital Signs Vital Signs Date Time Temp Pulse Resp B/P (MAP) Pulse Ox O2 Delivery O2 Flow Rate FiO2 12/16/20 16:59 126 108/73 12/16/20 16:37 16 12/16/20 16:00 98.5 99 Room Air Laboratory Data Labs 24H Laboratory Tests 2 12/16/20 08:17: Immature Granulocyte % (Auto) 1.1, Neutrophils (%) (Auto) 80.3H, Lymphocytes (%) (Auto) 9.7L, Monocytes (%) (Auto) 8.4H, Eosinophils (%) (Auto) 0.2, Basophils ( %) (Auto) 0.3, Neutrophils # (Auto) 7.2, Lymphocytes # (Auto) 0.9L, Monocytes # (Auto) 0.8, Eosinophils # (Auto) 0.0, Basophils # (Auto) 0.0, Nucleated Red Blood Cells % (auto) 0.0, Anion Gap 9, Glomerular Filtration Rate > 60.0, Calcium Level 8.2L, Total Bilirubin 0.3, Direct Bilirubin 0.1, Aspartate Amino Transf (AST/SGOT) 8, Alanine Aminotransferase (ALT/SGPT) 21, Alkaline Phosphatase 41L, Total Creatine Kinase 54, Creatine Kinase MB 2.0, Creatine Kinase MB Relative Index 3.70, Troponin I 0.20H, SF-Muo-C-Type Natriuretic Peptide 133, Total Protein 6.0L, Albumin 3.1L, Albumin/Globulin Ratio 1.1, Lipase 405H, Thyroid Stimulating Hormone (TSH) 0.728, Thyroxine (T4) 8.6 12/16/20 08:18: Lactic Acid Level 2.5*H 12/16/20 08:33: Bedside Glucose (Misc Panel) 196H 12/16/20 08:36: POC Group A Strep Rapid Screen NEGATIVE 12/16/20 11:30: Total Creatine Kinase 61, Creatine Kinase MB 3.1, Creatine Kinase MB Relative Index 5.08H, Troponin I 0.33#H 12/16/20 14:41: Lactic Acid Followup at 4 Hours 1.7 12/16/20 17:04: Total Creatine Kinase 63, Creatine Kinase MB 4.1H, Creatine Kinase MB Relative Index 6.51H, Troponin I 0.28H, Erythrocyte Sedimentation Rate 45H, Lactic Acid Level 1.6, Myoglobin 103, C-Reactive Protein, Quantitative 3.51H, NC-Zcq-B-Type Natriuretic Peptide 518H, Procalcitonin 0.13 12/16/20 18:35: Bedside Glucose (Misc Panel) 158H CBC/BMP Laboratory Tests 12/16/20 08:17 Microbiology Microbiology 12/16/20 Group A Streptococcus Screen (JOSEFINA), Received Pending 12/16/20 Respiratory Virus Panel (PCR) (JOSEFINA) - Final, Complete 12/16/20 Blood Culture, Received Pending 12/16/20 Blood Culture, Received Pending Home Medications Scheduled Amlodipine Besylate (Norvasc) 5 Mg Tablet, 5 MG PO DAILY Aspirin (Ecotrin) 81 Mg Tablet.dr, 81 MG PO DAILY Atenolol (Tenormin) 50 Mg Tab, 50 MG PO BID Ergocalciferol (Vitamin D2) (Vitamin D2) 50,000 Units Cap, 50,000 UNITS PO Q2WK TUESDAY' Fenofibrate Nanocrystallized (Fenofibrate) 48 Mg Tablet, 48 MG PO QHS Hydrochlorothiazide (Hydrochlorothiazide) 25 Mg Tablet, 25 MG PO DAILY Losartan Potassium (Losartan Potassium) 100 Mg Tablet, 100 MG PO DAILY Metformin HCl (Metformin HCl) 500 Mg Tab, 500 MG PO BID Metoclopramide HCl (Reglan) 10 Mg Tablet, 10 MG PO TID PT STATED HE ONLY TAKES ONCE A DAY Multivit-Min/FA/Lycopen/Lutein (Centrum Silver Tablet) 1 Each Tablet, 1 TAB PO DAILY [place]-3 Fatty Acids/Fish Oil (Fish Oil 1,000 mg Capsule) 1 Each Capsule, 1,000 MG PO DAILY Pantoprazole Sodium (Protonix) 40 Mg Tablet.dr, 1 TAB PO BID Potassium Chloride (Potassium Chloride) 20 Meq Tab.er.prt, 20 MEQ PO QHS Simvastatin (Zocor) 80 Mg Tablet, 80 MG PO QHS Sucralfate (Sucralfate) 1 Gm Tablet, 1 GM PO BID Travoprost (Travatan Z) 50 Drop/2.5 Ml Soln, 1 DROP OU QHS Allergies Coded Allergies: No Known Allergies (Verified , 12/13/16) A-FIB/CHADSVASC A-FIB History Current/History of A-Fib/PAF?: No Current PO Anticoag Therapy: No Age/Risk Factor Scoring CHADSVASC: CHADSVASC Response (Comments) Value Age Risk Factor Age >/= 75 years old 2 Gender Risk Factor Male 0 Hx of CHF No 0 Hx of HTN Yes 1 Hx of Diabetes Yes 1 Hx of Vascular Disease Yes 1 Total 5 Treatment Treatment ordered: NONE MARGARITA VO MD Dec 16, 2020 18:52
[2020-12-16] MEDS: SUCRALFATE SUSP 1GM/10ML UD PO SCH ×2 (19:05→20:44)
[2020-12-16 19:44] VITALS: BP 136/90
[2020-12-16] MEDS: HumaLOG INSULIN (NovoLOG) PER UNIT SC SCH (20:34)
[2020-12-16] MEDS: SIMVASTATIN 40 MG TAB PO SCH (20:44)
[2020-12-16] MEDS: LATANOPROST 0.005% OPHTH SOLN 2.5 ML OU SCH (20:44)
[2020-12-16] MEDS: POTASSIUM CHLORIDE 10MEQ SR TABLET PO SCH (20:44)
[2020-12-16] MEDS: FENOFIBRATE 48MG TABLET (TRICOR) PO SCH (20:44)
[2020-12-16] MEDS: atenoloL 50 MG TAB PO SCH (20:45)
[2020-12-16] MEDS ORDERED: PANTOPRAZOLE 40MG TAB (PROTONIX) PO SCH (21:00)
[2020-12-16 22:00] VITALS: BP 128/55
[2020-12-17] VITALS (11 sets, daily range): BP systolic 102–137; BP diastolic 46–95
[2020-12-17] MEDS ORDERED: SUCRALFATE SUSP 1GM/10ML UD PO SCH
[2020-12-17] MEDS: PANTOPRAZOLE 40MG VIAL (C9113 PER 1) IV SCH ×2 (05:21→17:31)
[2020-12-17] MEDS: NS 1,000 ML IV SCH (06:22)
[2020-12-17 07:13] LABS: BASO % 0.3 % (0.0-1.0); EOS # 0.1 10^3/uL (0.0-0.5); LYMPH # 1.2 10^3/uL (1.5-5.0); LYMPH % 19.5 % (24.0-44.0); MEAN CORPUSCULAR HEMOGLOBIN 29.4 pg (27.0-33.0); MEAN CORPUSCULAR HGB CONC 33.9 g/dl (32.0-36.5); MEAN CORPUSCULAR VOLUME 86.8 fl (80.0-96.0); MONO # 0.4 10^3/uL (0.0-0.8); MONO % 7.4 % (2.0-8.0); NEUTROPHILS # 4.2 10^3/uL (1.5-8.5); PLATELET COUNT, AUTOMATED 177 10^3/uL (150-450); RED BLOOD COUNT 2.65 10^6/uL (4.30-6.10)
[2020-12-17 07:15] LABS: HEMOGLOBIN 7.8 g/dl (13.5-17.5)
[2020-12-17 07:21] LABS: ALBUMIN 2.7 GM/DL (3.2-5.2); ALT/SGPT 18 U/L (12-78); BILIRUBIN,TOTAL 0.3 MG/DL (0.2-1.0); BLOOD UREA NITROGEN 39 MG/DL (7-18); CALCIUM LEVEL 7.7 MG/DL (8.8-10.2); CARBON DIOXIDE LEVEL 22 MEQ/L (21-32); CHLORIDE LEVEL 111 MEQ/L (98-107); CREATININE FOR GFR 0.98 MG/DL (0.70-1.30); GLOMERULAR FILTRATION RATE > 60.0 (>35); GLUCOSE, FASTING 141 MG/DL (70-100); LIPASE 329 U/L (73-393); POTASSIUM SERUM 4.4 MEQ/L (3.5-5.1); SODIUM LEVEL 140 MEQ/L (136-145); TOTAL PROTEIN 4.9 GM/DL (6.4-8.2)
[2020-12-17] MEDS: SUCRALFATE SUSP 1GM/10ML UD PO SCH ×4 (08:13→21:01)
[2020-12-17] MEDS: HumaLOG INSULIN (NovoLOG) PER UNIT SC SCH ×4 (08:13→21:00)
[2020-12-17] MEDS: METOCLOPRAMIDE 10 MG TAB PO SCH ×3 (08:13→21:01)
[2020-12-17] MEDS: MULTIVITAMINS/MINERALS THERAP 1 TAB PO SCH (08:13)
[2020-12-17] MEDS: amLODIPine 5 MG TAB PO SCH (08:22)
[2020-12-17] MEDS: atenoloL 50 MG TAB PO SCH ×2 (08:22→21:02)
[2020-12-17 08:53] LABS: HEMOGLOBIN 7.7 g/dl (13.5-17.5)
[2020-12-17] MEDS ORDERED: PREVNAR 13 VACCINE SYRINGE IM ONE (09:00)
[2020-12-17] MEDS ORDERED: ENOXAPARIN 40MG/0.4ML SYRINGE (J1650 PER 10MG) SC SCH (09:00)
[2020-12-17] MEDS ORDERED: FLUBLOK(EGG FREE)(QUAD)INFLUENZA VACC 0.5ML SYRINGE 18YRS & OLDER IM ONE (09:00)
[2020-12-17] MEDS ORDERED: ASPIRIN 81MG ENTERIC TABLET PO SCH (09:00)
[2020-12-17 09:18] LABS: PERCENT SATURATION 31.1 % (19.7-50.0)
[2020-12-17] MEDS ORDERED: diphenhydrAMINE 50MG CAP PO ONE (12:30)
[2020-12-17] MEDS ORDERED: ACETAMINOPHEN TAB 650MG DOSE (2X325MG) PO ONE (12:30)
--- NOTE | 2020-12-17 14:33 | IPN ---
PROGRESS NOTE DATE: 12/17/2020 SUBJECTIVE: Patient denies bright red blood per rectum, melena, black tarry stools, coffee ground emesis. Epigastric abdominal pain has resolved this morning. Denies any pleuritic chest pain, pressure or tightness, lightheadedness or dizziness. OBJECTIVE: Vital signs: Temperature 97.7, pulse 78, respiratory rate 22, blood pressure 110/60, 97% on room air. General: Patient has slight pallor. No icterus, jaundice or use of respiratory accessory muscles. Speaks in full sentences without conversational dyspnea. HEENT: Slight pallor. No cyanosis. Moist mucous membranes. Neck: No JVD, thyromegaly, cervical lymphadenopathy or carotid bruits. Lungs: Diminished, but clear to auscultation, no wheezing, rhonchi or rales. Heart: S1 and S2 regular rate and rhythm and tachycardiac. Abdomen: Soft, nontender, nondistended, positive bowel sounds. Extremities: Chronic edema. LABORATORY DATA: Notable for: Hemoglobin 7.7, hematocrit 22. Lactic acid was 3 this morning. ASSESSMENT: This is an 80-year-old patient who had positive cardiac markers yesterday, was given aspirin 325, continued on aspirin and Lovenox, but developed severe anemia with hemoglobin of 7.7 overnight. Still awaiting hemoccult stool sample. IMPRESSIONS/PLAN: 1. Acute duodenitis/mild pancreatitis: Patient was kept on I.V. fluids overnight, antiemetics and pain medications. Pain has subsided this morning. He is continued on Protonix and Carafate. 2. Hemoccult stool positive with suspected acute GI bleed with severe anemia, hemoglobin of 7.7: General surgery has been consulted. Patient will be transfused 2 units of RBCs. Heme-positive stool was noted on the stool sample. Patient had been on aspirin and Lovenox both of which are being held until patient's hemoglobin improves. 3. Demand mediated ischemia from severe anemia: Patient was given aspirin. He currently denies any chest pain. EKG has no acute ST elevations. He currently is being transfused RBCs. Troponins have remained stable and on a downward trend. 4. History of CAD with stent: Aspirin has been held due to acute GI bleed. Blood pressure is well controlled. 5. Hypertension: Controlled on current medications. Holding parameters have been placed. 6. Non-insulin dependent diabetes type-2 diabetes: Currently on hypoglycemic protocol for n.p.o. status. Since he has been started back on a liquid diet continue with sliding scale every before meals and at bedtime. 7. History of fatty liver. 8. Obesity, BMI of 39.7: Complicating care.
[2020-12-17] MEDS ORDERED: LIDOCAINE 1% MDV 20ML VIAL As Ordered ONE (16:06)
[2020-12-17] MEDS ORDERED: SODIUM CHLORIDE 0.9% INJ 10 ML SYR IV PRN (18:20)
[2020-12-17] MEDS: POTASSIUM CHLORIDE 10MEQ SR TABLET PO SCH (21:01)
[2020-12-17] MEDS: SIMVASTATIN 40 MG TAB PO SCH (21:02)
[2020-12-17] MEDS: FENOFIBRATE 48MG TABLET (TRICOR) PO SCH (21:02)
[2020-12-17] MEDS: LATANOPROST 0.005% OPHTH SOLN 2.5 ML OU SCH (21:03)
[2020-12-18 00:28] VITALS: BP 98/63
[2020-12-18] MEDS: NS 1,000 ML IV SCH ×3 (00:39→09:43)
[2020-12-18] MEDS ORDERED: ACETAMINOPHEN TAB 650MG DOSE (2X325MG) PO PRN (05:20)
[2020-12-18] MEDS: SODIUM CHLORIDE 0.9% INJ 10 ML SYR IV SCH ×2 (05:49→17:23)
[2020-12-18] MEDS: PANTOPRAZOLE 40MG VIAL (C9113 PER 1) IV SCH ×2 (05:49→17:21)
[2020-12-18 06:00] VITALS: BP 140/66
[2020-12-18 06:40] LABS: BASO % 0.3 % (0.0-1.0); EOS # 0.1 10^3/uL (0.0-0.5); HEMATOCRIT 26.4 % (42.0-52.0); HEMOGLOBIN 9.2 g/dl (13.5-17.5); LYMPH # 1.1 10^3/uL (1.5-5.0); LYMPH % 18.1 % (24.0-44.0); MEAN CORPUSCULAR HEMOGLOBIN 30.8 pg (27.0-33.0); MEAN CORPUSCULAR HGB CONC 34.8 g/dl (32.0-36.5); MEAN CORPUSCULAR VOLUME 88.3 fl (80.0-96.0); MONO # 0.5 10^3/uL (0.0-0.8); MONO % 8.2 % (2.0-8.0); NEUTROPHILS # 4.2 10^3/uL (1.5-8.5); NEUTROPHILS % 70.4 % (36.0-66.0); PLATELET COUNT, AUTOMATED 144 10^3/uL (150-450); RED BLOOD COUNT 2.99 10^6/uL (4.30-6.10)
[2020-12-18 07:04] LABS: ALBUMIN 2.9 GM/DL (3.2-5.2); ALT/SGPT 19 U/L (12-78); BILIRUBIN,TOTAL 0.5 MG/DL (0.2-1.0); BLOOD UREA NITROGEN 18 MG/DL (7-18); CALCIUM LEVEL 7.9 MG/DL (8.8-10.2); CARBON DIOXIDE LEVEL 25 MEQ/L (21-32); CHLORIDE LEVEL 110 MEQ/L (98-107); CREATININE FOR GFR 1.05 MG/DL (0.70-1.30); GLOMERULAR FILTRATION RATE > 60.0 (>35); GLUCOSE, FASTING 133 MG/DL (70-100); LIPASE 377 U/L (73-393); POTASSIUM SERUM 4.2 MEQ/L (3.5-5.1); SODIUM LEVEL 137 MEQ/L (136-145); TOTAL PROTEIN 5.2 GM/DL (6.4-8.2)
[2020-12-18] MEDS: HumaLOG INSULIN (NovoLOG) PER UNIT SC SCH ×2 (07:30→12:00)
[2020-12-18] MEDS: amLODIPine 5 MG TAB PO SCH ×2 (09:00→09:50)
[2020-12-18] MEDS: atenoloL 50 MG TAB PO SCH ×3 (09:00→20:04)
[2020-12-18] MEDS: SUCRALFATE SUSP 1GM/10ML UD PO SCH ×5 (09:00→21:07)
[2020-12-18] MEDS: MULTIVITAMINS/MINERALS THERAP 1 TAB PO SCH (09:47)
[2020-12-18] MEDS: PIPERACILLIN/TAZOBACTAM SOD 3.375 GM in D5W MINI-BAG PLUS 50 ML IV SCH ×3 (09:47→21:07)
[2020-12-18] MEDS: METOCLOPRAMIDE 10 MG TAB PO SCH ×3 (09:50→21:07)
[2020-12-18] MEDS ORDERED: D5W/0.45% SODIUM CHLORIDE 1,000 ML IV SCH (11:40)
--- NOTE | 2020-12-18 13:59 | CR.PDOC ---
General Surgery Consultation Date of Consultation 12/18/20 History and Physical CONSULT REPORT FOR: Dr. Pulido (hospitalist service) REASON FOR CONSULTATION: abdominal pain, ?duodenitis, ?GI bleeding HISTORY OF PRESENT ILLNESS: Patient is an 80-year-old gentleman who back in October was admitted in the hospital for similar symptoms of epigastric pain and discomfort as well as nausea and vomiting. He was suspected at that time to have gastric outlet obstruction based on the imaging study at the emergency room showing a dilated stomach. He had a follow-up upper GI series showing mostly duodenitis at the first and second portion of the duodenum. He was placed on twice a day Protonix as well as Carafate which he went home with. Patient reports improvement of symptoms but still would breakthrough symptoms usually with spicy food. He returned emergency room with exacerbation of above symptoms as well as reported chest pain. On the most recent CT scan abdomen pelvis done at the emergency room this was showing periduodenal inflammation that also includes per the head of the pancreas. He also had some mild elevation of the lipase. Patient is also reporting black stools the past couple days prior to his presentation. He denies any loss of consciousness, lightheadedness. He reports he was taking the medications religiously. There was a plan for sending him for a GI consult down the road for an upper endoscopy but he never had this arranged. He denies any prior history of peptic ulcer disease, denies any ongoi ng weight loss, denies any prior endoscopies. 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 History of prostate cancer status post robotic assisted radical prostatectomy Gastroesophageal reflux disease Fatty liver Obesity BMI of 39.7 History of hepatitis A Chronic bilateral epididymitis status post bilateral epididymectomies Small vessel ischemic disease PAST SURGICAL HISTORY: Appendectomy History of prostate cancer status post robotic assisted radical prostatectomy Cholecystectomy Chronic bilateral epididymitis status post bilateral epididymectomies Coronary artery stent placed in 2016 SOCIAL HISTORY: Former Former smoker Lives with his brother FAMILY HISTORY: Father colon cancer CAD diabetes Mother diabetes coronary artery disease breast cancer Brother coronary artery disease ALLERGIES: Please see below. FAMILY HISTORY: . HOME MEDICATIONS: Please see below. REVIEW OF SYSTEMS: GENERAL: [Denies chills, reports weight gain, reports feeling febrile yesterday]. HEENT: [Denies blurred vision and double vision. Denies ear symptoms. Denies hoarseness]. NECK: Denies any neck pain]. CARDIOVASCULAR: [Denies chest pain and palpitations]. MUSCULOSKELETAL: [Denies arthralgias, back pain and thrombophlebitis]. SKIN: [Denies rash]. NEUROLOGIC: [Denies headache, stroke and transient ischemic attack]. PSYCHIATRIC: [Denies anxiety and depression]. ENDOCRINE: [Denies thyroid disease]. HEMATOLOGY/ONCOLOGY: [Denies bleeding or clotting disorder]. HEART: [Denies any chest pains, palpitations, paroxysmal dyspnea, orthopnea]. PULMONARY: [Denies chronic cough, dyspnea and wheezing]. GASTROINTESTINAL: [Denies rectal bleeding, family history of colon cancer, constipation, diarrhea, dysphagia, heartburn and jaundice]. GENITOURINARY: [Denies dysuria, frequency, hematuria and nocturia]. ENDOCRINE: [Denies polydipsia, polyphagia, polyuria, heat or cold intolerance]. INFECTIOUS: [Denies any recent upper respiratory tract infection, UTI, need for use of antibiotics]. NUTRITION: [Reports good appetite]. PHYSICAL EXAMINATION: VITALS SIGNS: Please see below. GENERAL APPEARANCE:[Patient seen, laying in bed, awake, alert, and oriented. Comfortable, in no acute distress]. SKIN: [Warm and moist]. HEENT: [Normocephalic, atraumatic. [place] palpebral conjunctiva, anicteric scler ae. Lips and mucosa appear moist]. NECK: [Supple, no thyromegaly. No obvious jugular venous distention]. LUNGS: [Clear to auscultation bilaterally. No wheezing appreciated]. HEART: [No chest wall abnormalities. Regular rate and rhythm with no murmurs appreciated]. ABDOMEN: Abdomen is , soft, . [No hepatosplenomegaly. No umbilical or groin herniations, nondistended. No noticeable rebound or guarding. No grimacing with palpation. No rebound tenderness. No masses appreciated]. EXTREMITIES: [Extremities have no deformities. No edema identified] ANCILLARIES: . LABORATORY DATA: Please see below. IMAGING STUDIES: . IMPRESSION AND PLAN: . Vital Signs Vital Signs Date Time Temp Pulse Resp B/P (MAP) Pulse Ox O2 Delivery O2 Flow Rate FiO2 12/18/20 06:48 98.3 12/18/20 06:00 72 18 140/66 (90) 97 Room Air I&Os I&O- Last 24 Hours up to 6 AM 12/18/20 06:00 Intake Total 3038 ml Output Total 2000 ml Balance 1038 ml Laboratory Data Labs 24H Laboratory Tests 2 12/17/20 13:47: Lactic Acid Followup at 4 Hours 1.9 12/17/20 17:29: Bedside Glucose (Misc Panel) 116H 12/17/20 20:30: Bedside Glucose (Misc Panel) 131H 12/18/20 06:18: Immature Granulocyte % (Auto) 1.0, Neutrophils (%) (Auto) 70.4H, Lymphocytes (%) (Auto) 18.1L, Monocytes (%) (Auto) 8.2H, Eosinophils (%) (Auto) 2.0, Basophils (%) (Auto) 0.3, Neutrophils # (Auto) 4.2, Lymphocytes # (Auto) 1.1L, Monocytes # (Auto) 0.5, Eosinophils # (Auto) 0.1, Basophils # (Auto) 0.0, Nucleated Red Blood Cells % (auto) 0.0, Anion Gap 2L, Glomerular Filtration Rate > 60.0, Calcium Level 7.9L, Total Bilirubin 0.5#, Aspartate Amino Transf (AST/SGOT) 12, Alanine Aminotransferase (ALT/SGPT) 19, Alkaline Phosphatase 33L, Total Protein 5.2L, Albumin 2.9L, Albumin/Globulin Ratio 1.3, Lipase 377 12/18/20 11:25: Bedside Glucose (Misc Panel) 128H CBC/BMP Laboratory Tests 12/18/20 06:18 Microbiology Microbiology 12/17/20 Stool Occult Blood (JOSEFINA) - Final, Complete 12/16/20 Group A Streptococcus Screen (JOSEFINA) - Final, Complete 12/16/20 Respiratory Virus Panel (PCR) (JOSEFINA) - Final, Complete 12/16/20 Blood Culture - Preliminary, Resulted No Growth after 48 hours. All Specime... 12/16/20 Blood Culture - Preliminary, Resulted No Growth after 48 hours. All Specime... Home Medications Scheduled Amlodipine Besylate (Norvasc) 5 Mg Tablet, 5 MG PO DAILY, (Reported) Aspirin (Ecotrin) 81 Mg Tablet.dr, 81 MG PO DAILY, (Reported) Atenolol (Tenormin) 50 Mg Tab, 50 MG PO BID, (Reported) Ergocalciferol (Vitamin D2) (Vitamin D2) 50,000 Units Cap, 50,000 UNITS PO Q2WK, (Reported) Fenofibrate Nanocrystallized (Fenofibrate) 48 Mg Tablet, 48 MG PO QHS, (Reported) Hydrochlorothiazide (Hydrochlorothiazide) 25 Mg Tablet, 25 MG PO DAILY, (Reported) Losartan Potassium (Losartan Potassium) 100 Mg Tablet, 100 MG PO DAILY, (Reported) Metformin HCl (Metformin HCl) 500 Mg Tab, 500 MG PO BID, (Reported) Metoclopramide HCl (Reglan) 10 Mg Tablet, 10 MG PO TID, (Reported) PT STATED HE ONLY TAKES ONCE A DAY Multivit-Min/FA/Lycopen/Lutein (Centrum Silver Tablet) 1 Each Tablet, 1 TAB PO DAILY, (Reported) [place]-3 Fatty Acids/Fish Oil (Fish Oil 1,000 mg Capsule) 1 Each Capsule, 1,000 MG PO DAILY, (Reported) Pantoprazole Sodium (Protonix) 40 Mg Tablet.dr, 1 TAB PO BID Potassium Chloride (Potassium Chloride) 20 Meq Tab.er.prt, 20 MEQ PO QHS, (Reported) Simvastatin (Zocor) 80 Mg Tablet, 80 MG PO QHS, (Reported) Sucralfate (Sucralfate) 1 Gm Tablet, 1 GM PO BID, (Reported) Travoprost (Travatan Z) 50 Drop/2.5 Ml Soln, 1 DROP OU QHS, (Reported) Allergies Coded Allergies: No Known Allergies (Verified , 12/13/16) MORGAN OLIVA MD Dec 18, 2020 13:05
[2020-12-18 14:00] VITALS: BP 141/71
[2020-12-18] MEDS ORDERED: propofoL 200 MG/20 ML VIAL As Ordered ONE (14:59)
[2020-12-18] MEDS ORDERED: fentaNYL 100 MCG/2 ML INJECTION (J3010) As Ordered ONE (14:59)
[2020-12-18] MEDS ORDERED: LIDOCAINE 2% 100MG/5ML SDV (FOR ANES.) As Ordered ONE (15:01)
--- NOTE | 2020-12-18 15:24 | ROOR ---
Patient Name: Tejas Jones Procedure Date: 12/18/2020 2:58 PM Date of : 1940 Age: 80 Room: [facility] Gender: Male Note Status: Finalized Procedure: Upper GI endoscopy Indications: Epigastric abdominal pain, Acute post hemorrhagic anemia, Abnormal UGI series, Abnormal CT of the GI tract Providers: Josué Castle MD Referring MD: 2. Inpatient 2. Inpatient, MALAIKA REYES MD Requesting Provider: Medicines: Monitored Anesthesia Care Complications: No immediate complications. Procedure: Pre-Anesthesia Assessment: - Prior to the procedure, a History and Physical was performed, and patient medications and allergies were reviewed. The patient is competent. The risks and benefits of the procedure and the sedation options and risks were discussed with the patient. All questions were answered and informed consent was obtained. Patient identification and proposed procedure were verified by the physician, the nurse and the ditch inspector in the endoscopy suite. Mental Status Examination: alert and oriented. Airway Examination: normal oropharyngeal airway and neck mobility. Respiratory Examination: clear to auscultation. CV Examination: normal. Prophylactic Antibiotics: The patient does not require prophylactic antibiotics. Prior Anticoagulants: The patient has taken no previous anticoagulant or antiplatelet agents except for aspirin. ASA Grade Assessment: III - A patient with severe systemic disease. After reviewing the risks and benefits, the patient was deemed in satisfactory condition to undergo the procedure. The anesthesia plan was to use monitored anesthesia care (MAC). Immediately prior to administration of medications, the patient was re-assessed for adequacy to receive sedatives. The heart rate, respiratory rate, oxygen saturations, blood pressure, adequacy of pulmonary ventilation, and response to care were monitored throughout the procedure. The physical status of the patient was re-assessed after the procedure. The Endoscope was introduced through the mouth, and advanced to the second part of duodenum. The upper GI endoscopy was somewhat difficult due to inflammation/mucosal swelling at the first portion of the duodenum, presence of duodenal diveriticulum Findings: LA Grade B (one or more mucosal breaks greater than 5 mm, not extending between the tops of two mucosal folds) esophagitis with no bleeding was found 39 cm from the incisors. The entire examined stomach was normal. This was biopsied with a cold forceps for Helicobacter pylori testing. Estimated blood loss was minimal. Localized moderate inflammation characterized by congestion (edema), friability, granularity and deep ulcerations was found in the first portion of the duodenum. Biopsies were taken with a cold forceps for histology. Estimated blood loss was minimal. One non-bleeding cratered duodenal ulcer with no stigmata of bleeding was found in the first portion of the duodenum. The lesion was 20 mm in largest dimension. A 15 mm non-bleeding diverticulum was found in the second portion of the duodenum. The second portion of the duodenum was normal. Impression: - LA Grade B reflux esophagitis. - Normal stomach. Biopsied. - Chronic duodenitis. Biopsied. - Non-bleeding duodenal ulcer with no stigmata of bleeding. - Non-bleeding duodenal diverticulum. - Normal second portion of the duodenum. Recommendation: - [facility] the [facility]. - Advance diet as tolerated today. - Use Protonix (pantoprazole) 40 mg PO BID for 6 months. - Use sucralfate suspension 1 gram PO QID for 6 months. - Repeat upper endoscopy in 3 months to check healing. Procedure Code(s): --- Professional --- 23121, Esophagogastroduodenoscopy, flexible, transoral; with biopsy, single or multiple Diagnosis Code(s): --- Professional --- K21.0, Gastro-esophageal reflux disease with esophagitis K29.80, Duodenitis without bleeding K26.9, Duodenal ulcer, unspecified as acute or chronic, without hemorrhage or perforation R10.13, Epigastric pain D62, Acute posthemorrhagic anemia R93.3, Abnormal findings on diagnostic imaging of other parts of digestive tract K57.10, Diverticulosis of small intestine without perforation or abscess without bleeding CPT copyright 2019 [employer]. All rights reserved. The codes documented in this report are preliminary and upon coder operator review may be revised to meet current compliance requirements. Josué Castle MD Josué Castle MD 12/18/2020 3:24:07 PM Electronically signed by Josué Castle MD Number of Addenda: 0 Note Initiated On: 12/18/2020 2:58 PM Estimated Blood Loss: Estimated blood loss was minimal.
[2020-12-18 16:00] VITALS: BP 137/69
--- NOTE | 2020-12-18 16:45 | IPN ---
PROGRESS NOTE DATE: 12/16/2020 SUBJECTIVE: The patient had a low grade temperature of 100.2 overnight and he complains of some nausea without vomiting. Epigastric discomfort is slightly improved today, 4/10 on a pain scale. He denies any bright red blood per rectum, melena, black tarry stools. Per nursing, the patient had a bowel movement yesterday which was heme positive. The patient did receive two units of RBC transfusion yesterday due to hemoglobin of 7.7, increased to 9.2 after two units of RBC transfusion. The patient currently denies any chest pain, pressure tightness, shortness of breath, lightheadedness or dizziness. OBJECTIVE: Vitals: Temperature 98.3, pulse 72, respiratory rate 18, blood pressure 140/66, 97% on room air, T max of 100.2. General: The patient is in no distress. He is awake, alert and oriented x3, answering questions appropriately, anicteric, no jaundice, no use of respiratory accessory muscles. HEENT: No thyromegaly, cervical lymphadenopathy, carotid bruit. Lungs: Diminished but clear to auscultation. No wheezing or rales. Heart: S1, S2, sinus rhythm. Abdomen: Obese, soft with tender epigastric region, no rebound or guarding, no CVA tenderness. Extremities: Chronic edema. Laboratory data, imaging study, microbiology have been reviewed. The patient was noted to have improvement in hemoglobin from 7.7 to 9.2 after two units of RBC transfusion. The patient had a troponin leak of 0.28. Creatinine is normal. Lactic acid is normal at 1.9. Hemoccult stool positive. ASSESSMENT AND PLAN: This is an 80-year-old male with history of CAD, status post stent, 2016, hypertension, noninsulin dependent type 2 diabetes, nontoxic multinodular goiter, prostate CA, status post robotic-assisted radical prostatectomy, gastroesophageal reflux disease, fatty liver, obesity, BMI of 39.7, history of hepatitis A and chronic bilateral epididymitis as well as bilaterally epididymectomy, small vessel ischemic disease and recent duodenitis, seen in October, for a possible gastric outlet obstruction, was found to have delayed gastric emptying with no ulcer on upper GI series. At that time, no EGD was performed. He now presents with epigastric abdominal pain and chest discomfort without shortness of breath, fever, chills or cough, diaphoresis. EKG showed sinus rhythm, nonspecific ST-T wave changes. The patient had a troponin leak of 0.20. CT of chest had no PE, pneumonia or effusion. CT, abdomen and pelvis showed mild pancreatic head, pancreatitis causing mild duodenitis. Hospitalist was asked to admit the patient for acute pancreatitis and duodenitis. ER physician had spoken with cardiology on admission due to troponin leak with recommendations to continue on aspirin. During the hospital stay while on IV fluids, the patient's hemoglobin dropped from admission of 11 to 7.8 and repeat hemoglobin of 7.7 and hematocrit of 22 without overt GI bleed, without coffee ground emesis, hematemesis, bright red blood per rectum or melena. The patient was transfused two units of RBCs. Aspirin, Lovenox for DVT prophylaxis were discontinued. General surgery was consulted. The patient was kept NPO after midnight for EGD to further evaluate patient's heme positive stool and anemia as well as thickened duodenum on CT, abdomen and pelvis. ACTIVE ISSUES: 1. Heme positive stool with suspected GI bleed, hemoglobin of 7.7, status post two units of RBC transfusion. The patient's aspirin and Lovenox have been discontinued and he has been kept NPO on IV fluids, to undergo EGD this morning with biopsy. Continue on Protonix and Carafate. 2. Duodenitis, mild pancreatitis. Patient has been kept NPO on IV fluids, pain medications and antiemetics as needed. EGD today regarding the thickened duodenum to rule out gastritis or duodenitis. 3. Demand mediated cardiac ischemia with troponin leak. The patient's EKG showed no ST elevations. He was initially given aspirin per recommendations by cardiology from the emergency room due to severe anemia with heme positive stool. Aspirin has been discontinued. 4. Dyslipidemia on chronic statin. 5. Hypertension, controlled on atenolol 50 b.i.d. 6. Insulin dependent diabetes on hyperglycemic protocol and fingers sticks q.6 hourly while NPO, IV fluids to prevent hypoglycemia. 7. Obesity. BMI of 39.7 complicating care. 8. History of prostate CA, status post robotic-assisted radical prostatectomy. 9. History of CAD with stent. Aspirin, Lovenox have been discontinued due to heme positive stool and severe anemia requiring two units of RBC transfusion, awaiting EGDD report. 10. History of nontoxic multinodular goiter.
--- NOTE | 2020-12-18 17:29 | REP ---
PROCEDURE NAME: PICC LINE INSERTION W/SITERITE CLINICAL INFORMATION: poor iv access. needs rbc transfusion. ivf. COMPARISON: None. PROCEDURE DESCRIPTION: The procedure was performed by DUNCAN Guadarrama, under the direct supervision of Dr. Posey. The risks and benefits of the procedure were explained to the patient and an informed consent was obtained both verbally and written. Directly prior to the start of the procedure a formal time-out was completed in the procedure room. The right basilic vein was localized using ultrasound guidance. The skin was prepped and draped in sterile fashion. Three mL of 1% lidocaine 10 mg/mL was used as a local anesthetic. Using ultrasound guidance the right basilic vein was cannulated, and a 0.018 guidewire was inserted and advanced to the level of SVC using fluoroscopic guidance. The needle was removed and a 6 Italian dilator and peel-away sheath was inserted over the guidewire. A 5.5 Italian dual lumen catheter was cut to a length of 43 cm. The dilator was removed and the catheter was inserted over the guidewire with the tip ending at the level of the SVC. The peel-away sheath was removed and the catheter was flushed with heparinized saline as per hospital protocol. The catheter was affixed to the skin and a sterile dressing was applied. The patient tolerated the procedure well and there were no immediate complications. CONCLUSION: PICC line insertion into the right basilic vein. 0.7 minutes of fluoroscopy time was utilized for this procedure. Some fluoroscopic images are performed with last image hold technology. These images require no additional radiation. <Electronically signed by Carissa Banks > 12/18/20 [id number] <Electronically signed by Benedict Posey > 12/18/20 [id number]
[2020-12-18] MEDS ORDERED: CARA1TAB6 PO (18:04)
[2020-12-18] MEDS ORDERED: PROTPAK PO (18:04)
[2020-12-18 20:00] VITALS: BP 98/56
[2020-12-18] MEDS: SIMVASTATIN 40 MG TAB PO SCH (21:08)
[2020-12-18] MEDS: POTASSIUM CHLORIDE 10MEQ SR TABLET PO SCH (21:08)
[2020-12-18] MEDS: LATANOPROST 0.005% OPHTH SOLN 2.5 ML OU SCH (21:08)
[2020-12-18] MEDS: FENOFIBRATE 48MG TABLET (TRICOR) PO SCH (21:08)
[2020-12-18 22:00] VITALS: BP 132/49
[2020-12-19] MEDS: PIPERACILLIN/TAZOBACTAM SOD 3.375 GM in D5W MINI-BAG PLUS 50 ML IV SCH ×2 (04:41→09:39)
[2020-12-19 06:00] VITALS: BP 127/69
[2020-12-19] MEDS: SODIUM CHLORIDE 0.9% INJ 10 ML SYR IV SCH (06:03)
[2020-12-19] MEDS: PANTOPRAZOLE 40MG VIAL (C9113 PER 1) IV SCH (06:03)
[2020-12-19 07:36] LABS: BASO % 0.5 % (0.0-1.0); EOS # 0.1 10^3/uL (0.0-0.5); EOS % 1.8 % (0.0-3.0); HEMATOCRIT 25.7 % (42.0-52.0); HEMOGLOBIN 9.1 g/dl (13.5-17.5); LYMPH # 0.8 10^3/uL (1.5-5.0); LYMPH % 17.8 % (24.0-44.0); MEAN CORPUSCULAR HEMOGLOBIN 30.8 pg (27.0-33.0); MEAN CORPUSCULAR HGB CONC 35.4 g/dl (32.0-36.5); MEAN CORPUSCULAR VOLUME 87.1 fl (80.0-96.0); MONO # 0.4 10^3/uL (0.0-0.8); MONO % 8.1 % (2.0-8.0); NEUTROPHILS # 3.2 10^3/uL (1.5-8.5); NEUTROPHILS % 71.1 % (36.0-66.0); PLATELET COUNT, AUTOMATED 148 10^3/uL (150-450); RED BLOOD COUNT 2.95 10^6/uL (4.30-6.10); WHITE BLOOD COUNT 4.4 10^3/uL (4.0-10.0)
[2020-12-19 08:10] LABS: ALBUMIN 2.9 GM/DL (3.2-5.2); ALT/SGPT 18 U/L (12-78); BILIRUBIN,TOTAL 0.4 MG/DL (0.2-1.0); BLOOD UREA NITROGEN 12 MG/DL (7-18); CALCIUM LEVEL 8.3 MG/DL (8.8-10.2); CARBON DIOXIDE LEVEL 24 MEQ/L (21-32); CHLORIDE LEVEL 109 MEQ/L (98-107); CREATININE FOR GFR 1.12 MG/DL (0.70-1.30); GLOMERULAR FILTRATION RATE > 60.0 (>35); GLUCOSE, FASTING 137 MG/DL (70-100); LIPASE 390 U/L (73-393); POTASSIUM SERUM 4.3 MEQ/L (3.5-5.1); SODIUM LEVEL 139 MEQ/L (136-145); TOTAL PROTEIN 5.5 GM/DL (6.4-8.2)
[2020-12-19] MEDS: MULTIVITAMINS/MINERALS THERAP 1 TAB PO SCH (09:46)
[2020-12-19 09:47] VITALS: BP 133/53
[2020-12-19] MEDS: METOCLOPRAMIDE 10 MG TAB PO SCH (09:47)
[2020-12-19] MEDS: SUCRALFATE SUSP 1GM/10ML UD PO SCH (09:47)
[2020-12-19] MEDS: atenoloL 50 MG TAB PO SCH (09:47)
[2020-12-19] MEDS: amLODIPine 5 MG TAB PO SCH (09:47)
[2020-12-19] MEDS ORDERED: BACITAB PO (11:12)
[2020-12-19] MEDS ORDERED: CIPR-249 PO (11:12)
[2020-12-19] MEDS ORDERED: METR-265 PO (11:12)
--- NOTE | 2020-12-19 11:15 | DS.PDOC ---
Discharge Summary General Date of Admission Dec 16, 2020 at 13:47 Date of Discharge 12/19/20 Discharge Summary PROCEDURES PERFORMED DURING STAY: EGD 12/18/20-LA GRADE B ESOPHAGITIS, NONBLEEDIUNG DUODENAL ULCER, CHRONIC DUODENITIS [facility] NURSE PRACTITIONER: GENERAL SURGERY: DR. OLIVA ADMITTING DIAGNOSES: Duodenitis Mild pancreatitis DISCHARGE DIAGNOSES: Acute UGI bleed s/p 2 units rbc transfusion Acute Blood loss anemia LA grade B esophagitis Nonbleeding duodenal ulcer Chronic duodenitis Low grade fever s/p zosyn Demand-mediated cardiac ischemia Type 2 NSTEMI Dyslipidemia HTN DM2 h/o CAD stent h/o multinodular goiter h/o prostate ca s/p robotic radical prostatectomy DISCHARGE INSTRUCTIONS: pcp 1 wk surgery 1 wk, will need repeat EGD in 3 months avoid nsaid, asa x 1 wk, unless instructed by pcp to resume continue protonix 40 mg twice/day, and carafate 1gram before meals, and before bedtime HOSPITAL COURSE: This is an 80-year-old male with history of CAD, status post stent, 2015, hypertension, noninsulin dependent type 2 diabetes, nontoxic multinodular goiter, prostate CA, status post robotic-assisted radical prostatectomy, gastroesophageal reflux disease, fatty liver, obesity, BMI of 39.7, history of hepatitis A and chronic bilateral epididymitis as well as bilaterally epididymectomy, small vessel ischemic disease and recent duodenitis, seen in October, for a possible gastric outlet obstruction, was found to have delayed gastric emptying with no ulcer on upper GI series. At that time, no EGD was performed. He now presents with epigastric abdominal pain and chest discomfort without shortness of breath, fever, chills or cough, diaphoresis. EKG showed sinus rhythm, nonspecific ST-T wave changes. The patient had a troponin leak of 0.20. CT of chest had no PE, pneumonia or effusion. CT, abdomen and pelvis showed mild pancreatic head, pancreatitis causing mild duodenitis. Hospitalist was asked to admit the patient for acute pancreatitis and duodenitis. ER physician had spoken with cardiology on admission due to troponin leak with recommendations to continue on aspirin. During the hospital stay while on IV fluids, the patient's hemoglobin dropped from admission of 11 to 7.8 and repeat hemoglobin of 7.7 and hematocrit of 22 without overt GI bleed, without coffee ground emesis, hematemesis, bright red blood per rectum or melena. The patient was transfused two units of RBCs. Aspirin, Lovenox for DVT prophylaxis were discontinued. General surgery was consulted. The patient was kept NPO after midnight for EGD to further evaluate patient's heme positive stool and anemia as well as thickened duodenum on CT, abdomen and pelvis. 1. Acute upper GI bleed, hemoglobin of 7.7, status post two units of RBC transfusion. The patient's aspirin and Lovenox have been discontinued and he has been kept NPO on IV fluids, while waiting for EGD. General surgery Dr. Celestino Luna was consulted. Continue on Protonix and Carafate. EGD: LA grade B esophagitis, chronic duodenitis, nonbleeding duodenal ulcer. Repeat EGD in 3 months. Hemoglobin is stable and hemodynamically stable Resumed on soft diet which she tolerated well. 2. Duodenitis, mild pancreatitis. Patient has been kept NPO on IV fluids, pain medications and antiemetics as needed. Resumed on solid diet after EGD 3. Demand mediated cardiac ischemia with troponin leak. The patient's EKG showed no ST elevations. He was initially given aspirin per recommendations by cardiology from the emergency room due to severe anemia with heme positive stool. Aspirin has been discontinued. 4. Dyslipidemia on chronic statin. 5. Hypertension, controlled on atenolol 50 b.i.d. 6. Insulin dependent diabetes on hyperglycemic protocol and fingers sticks q.6 hourly while NPO, IV fluids to prevent hypoglycemia while awaiting EGD. Resumed on consistent carbohydrate diet after EGD. 7. Obesity. BMI of 39.7 complicating care. 8. History of prostate CA, status post robotic-assisted radical prostatectomy. 9. History of CAD with stent. Aspirin, Lovenox have been discontinued due to heme positive stool and severe anemia requiring two units of RBC transfusion, awaiting EGDD report. 10. History of nontoxic multinodular goiter. 11. Low grade fever 100.2 . given empiric zosyn. negative blood cx, CT chest/abd/pelvis, covid 19 negative. to finish cipro flagyl as outpt. sent ua w reflex culture. bacid qmealsand qhs. DISCHARGE PHYSICAL EXAM: Vitals: See below General: The patient is in no distress. He is awake, alert and oriented x3, answering questions appropriately, anicteric, no jaundice, no use of respiratory accessory muscles. HEENT: No thyromegaly, cervical lymphadenopathy, carotid bruit. Lungs: Diminished but clear to auscultation. No wheezing or rales. Heart: S1, S2, sinus rhythm. Abdomen: Obese, soft with tender epigastric region, no rebound or guarding, no CVA tenderness. Extremities: Chronic edema. Discharge laboratory data, imaging study, microbiology have been reviewed. The patient was noted to have improvement in hemoglobin from 7.7 to 9.2 after two units of RBC transfusion. The patient had a troponin leak of 0.28. Creatinine is normal. Lactic acid is normal at 1.9. Hemoccult stool positive. TIME SPENT ON DISCHARGE: 30 MINUTES Vital Signs/I&Os Vital Signs Date Time Temp Pulse Resp B/P (MAP) Pulse Ox O2 Delivery O2 Flow Rate FiO2 12/19/20 09:47 133/53 12/19/20 06:00 98.7 76 18 96 Room Air I&O- Last 24 Hours up to 6 AM 12/19/20 06:00 Intake Total 1320 ml Output Total 0 ml Balance 1320 ml Laboratory Data Labs 24H Laboratory Tests 2 12/18/20 11:25: Bedside Glucose (Misc Panel) 128H 12/19/20 07:06: Immature Granulocyte % (Auto) 0.7, Neutrophils (%) (Auto) 71.1H, Lymphocytes (%) (Auto) 17.8L, Monocytes (%) (Auto) 8.1H, Eosinophils (%) (Auto) 1.8, Basophils (%) (Auto) 0.5, Neutrophils # (Auto) 3.2, Lymphocytes # (Auto) 0.8L, Monocytes # (Auto) 0.4, Eosinophils # (Auto) 0.1, Basophils # (Auto) 0.0, Nucleated Red Blood Cells % (auto) 0.0, Anion Gap 6L, Glomerular Filtration Rate > 60.0, Calcium Level 8.3L, Total Bilirubin 0.4, Aspartate Amino Transf (AST/SGOT) 17, Alanine Aminotransferase (ALT/SGPT) 18, Alkaline Phosphatase 37L, Total Protein 5.5L, Albumin 2.9L, Albumin/Globulin Ratio 1.1, Lipase 390 CBC/BMP Laboratory Tests 12/19/20 07:06 FSBS Laboratory Tests Test 12/18/20 11:25 Range/Units Bedside Glucose (Misc Panel) 128 83-110 MG/DL Microbiology Microbiology 12/17/20 Stool Occult Blood (JOSEFINA) - Final, Complete 12/16/20 Group A Streptococcus Screen (JOSEFINA) - Final, Complete 12/16/20 Respiratory Virus Panel (PCR) (JOSEFINA) - Final, Complete 12/16/20 Blood Culture - Preliminary, Resulted No Growth after 72 hours. All specime... 12/16/20 Blood Culture - Preliminary, Resulted No Growth after 72 hours. All specime... Discharge Medications Scheduled Amlodipine Besylate (Norvasc) 5 Mg Tablet, 5 MG PO DAILY, (Reported) Atenolol (Tenormin) 50 Mg Tab, 50 MG PO BID, (Reported) Ciprofloxacin HCl (Cipro) 500 Mg Tablet, 500 MG PO BID Ergocalciferol (Vitamin D2) (Vitamin D2) 50,000 Units Cap, 50,000 UNITS PO Q2WK, (Reported) Fenofibrate Nanocrystallized (Fenofibrate) 48 Mg Tablet, 48 MG PO QHS, (Reported ) Hydrochlorothiazide (Hydrochlorothiazide) 25 Mg Tablet, 25 MG PO DAILY, (Reported) L.acidoph/L.bulg/B.bif/S.therm (Bacid Caplet) 1 Each Tablet, 1 TAB PO WMHS Losartan Potassium (Losartan Potassium) 100 Mg Tablet, 100 MG PO DAILY, (Reported) Metformin HCl (Metformin HCl) 500 Mg Tab, 500 MG PO BID, (Reported) Metoclopramide HCl (Reglan) 10 Mg Tablet, 10 MG PO TID, (Reported) PT STATED HE ONLY TAKES ONCE A DAY Metronidazole (Metronidazole) 500 Mg Tablet, 500 MG PO TID Multivit-Min/FA/Lycopen/Lutein (Centrum Silver Tablet) 1 Each Tablet, 1 TAB PO DAILY, (Reported) [place]-3 Fatty Acids/Fish Oil (Fish Oil 1,000 mg Capsule) 1 Each Capsule, 1,000 MG PO DAILY, (Reported) Pantoprazole Sodium (Protonix) 40 Mg Granpkt.dr, 40 MG PO BID Potassium Chloride (Potassium Chloride) 20 Meq Tab.er.prt, 20 MEQ PO QHS, ( Reported) Simvastatin (Zocor) 80 Mg Tablet, 80 MG PO QHS, (Reported) Sucralfate (Carafate) 1 Gm Tablet, 1 GM PO ACHS 4 times per day take on an empty stomach Travoprost (Travatan Z) 50 Drop/2.5 Ml Soln, 1 DROP OU QHS, (Reported) Allergies Coded Allergies: No Known Allergies (Verified , 12/13/16) MARGARITA VO MD Dec 19, 2020 11:09
--- NOTE | 2020-12-20 16:38 | ECGEPIP ---
[facility] Test Date: 2020-12-16 Pat Name: TERESA WICK Department: Room: [place] [id number] Gender: Male Customer Support Assistant: patti : 1940 Requested By: MARGARITA Le Order Number: [id number] Reading MD: Olegario Cancino Measurements Intervals [place] Rate: 103 P: 68 [place]: 204 QRS: 50 QRSD: 86 T: 95 QT: 326 QTc: 427 Interpretive Statements Poor data quality, interpretation may be adversely affected Sinus tachycardia Nonspecific ST and T wave abnormality Compared to prior tracings in the system. No remarkable changes but there is now b better R wave progression Electronically Signed on 12-20-2020 16:37:50 EDT by Olegario Cancino
== END 2020-12-19 11:56 | disposition home health service (06) | DRG 377 ==
LOC: EDBD 07:33 → M ED 07:33 → M ED INP 13:47 → ENRESERV 15:50 → M MSPAV 16:03
PROVIDERS: ADMIT General Practice; ATTEND General Practice
PROC: 30233N1 Transfusion of Nonautologous Red Blood Cells into Peripheral Vein, Percutaneous Approach (ICD-10-PCS; 2020-12-17)
PROC: 02HV33Z Insertion of Infusion Device into Superior Vena Cava, Percutaneous Approach (ICD-10-PCS; 2020-12-17)
PROC: 0DB98ZX Excision of Duodenum, Via Natural or Artificial Opening Endoscopic, Diagnostic (ICD-10-PCS; 2020-12-18)
PROC: 0DB78ZX Excision of Stomach, Pylorus, Via Natural or Artificial Opening Endoscopic, Diagnostic (ICD-10-PCS; principal; 2020-12-18 15:00)
DX: K92.2 Gastrointestinal hemorrhage, unspecified (principal); K85.90 Acute pancreatitis without necrosis or infection, unspecified; I21.A1 Myocardial infarction type 2; D62 Acute posthemorrhagic anemia; K29.80 Duodenitis without bleeding; I25.10 Atherosclerotic heart disease of native coronary artery without angina pectoris; I10 Essential (primary) hypertension; E11.9 Type 2 diabetes mellitus without complications; R93.3 Abnormal findings on diagnostic imaging of other parts of digestive tract; K26.9 Duodenal ulcer, unspecified as acute or chronic, without hemorrhage or perforation; K30 Functional dyspepsia; K57.10 Diverticulosis of small intestine without perforation or abscess without bleeding; K21.00 Gastro-esophageal reflux disease with esophagitis, without bleeding; K76.0 Fatty (change of) liver, not elsewhere classified; E66.9 Obesity, unspecified; Z68.39 Body mass index [BMI] 39.0-39.9, adult; Z85.46 Personal history of malignant neoplasm of prostate; Z90.49 Acquired absence of other specified parts of digestive tract; Z95.5 Presence of coronary angioplasty implant and graft; Z79.82 Long term (current) use of aspirin; Z79.84 Long term (current) use of oral hypoglycemic drugs; Z79.899 Other long term (current) drug therapy; Z87.891 Personal history of nicotine dependence

== ENCOUNTER 2021-01-01 12:22 | Emergency (ER) | payer OTHER, MEDICAID ==
[~2021-01-01] VITALS: Ht 165.1 cm; Wt 115.0 kg
[~2021-01-01 12:22] MED LIST changes: +BACITAB PO; +CARA1TAB6 PO; +METR-265 PO; +NORV5TAB PO; +PROTPAK PO
--- OUTSIDE RECORDS SUMMARY | 2021-01-01 12:28 | CCD ---
Author Author [facility] Organization [facility] Address Unknown Phone Unavailable Care Team Providers Care Pressing Department Supervisor Name Role Phone Alphonso Valdez MD Unavailable Unavailable Courtney, Alphonso Maynard MD [...] Unavailable Courtney, Alphonso Maynard MD Unavailable Unavailable Siobhan, N Armen ALUMINUM SHINGLE ROOFER Unavailable Unavailable [place], N Armen ALUMINUM SHINGLE ROOFER Unavailable Unavailable [place], N Armen ALUMINUM SHINGLE ROOFER Unavailable Unavailable [place], N Armen ALUMINUM SHINGLE ROOFER Unavailable Unavailable Siobhan, N Armen ALUMINUM SHINGLE ROOFER Unavailable Unavailable Siobhan, N Armen ALUMINUM SHINGLE ROOFER Unavailable Unavailable [place], N Armen ALUMINUM SHINGLE ROOFER Unavailable Unavailable Siobhan, N Armen ALUMINUM SHINGLE ROOFER Unavailable Unavailable [place], N Armen ALUMINUM SHINGLE ROOFER Unavailable Unavailable [place], N Armen ALUMINUM SHINGLE ROOFER Unavailable Unavailable [place], N Armen ALUMINUM SHINGLE ROOFER Unavailable Unavailable Siobhan, N Armen ALUMINUM SHINGLE ROOFER Unavailable Unavailable [place], N Armen ALUMINUM SHINGLE ROOFER Unavailable Unavailable [place], N Armen ALUMINUM SHINGLE ROOFER Unavailable Unavailable [place], N Armen ALUMINUM SHINGLE ROOFER Unavailable Unavailable [place], N Armen ALUMINUM SHINGLE ROOFER Unavailable Unavailable [place], N Armen ALUMINUM SHINGLE ROOFER Unavailable Unavailable [place], N Armen ALUMINUM SHINGLE ROOFER Unavailable Unavailable [place], N Armen ALUMINUM SHINGLE ROOFER Unavailable Unavailable [place], N Armen ALUMINUM SHINGLE ROOFER Unavailable Unavailable Siobhan, N Armen ALUMINUM SHINGLE ROOFER Unavailable Unavailable [place], N Armen ALUMINUM SHINGLE ROOFER Unavailable Unavailable [place], N Armen ALUMINUM SHINGLE ROOFER Unavailable Unavailable Siobhan, N Armen ALUMINUM SHINGLE ROOFER Unavailable Unavailable [place], N Armen ALUMINUM SHINGLE ROOFER Unavailable Unavailable [place], N Armen ALUMINUM SHINGLE ROOFER Unavailable Unavailable [place], N Armen ALUMINUM SHINGLE ROOFER Unavailable Unavailable Siobhan, N Armen ALUMINUM SHINGLE ROOFER Unavailable Unavailable Siobhan, N Armen ALUMINUM SHINGLE ROOFER Unavailable Unavailable Siobhan, N Armen ALUMINUM SHINGLE ROOFER Unavailable Unavailable Siobhan, N Armen ALUMINUM SHINGLE ROOFER Unavailable Unavailable [place], N Armen ALUMINUM SHINGLE ROOFER Unavailable Unavailable [place], N Armen ALUMINUM SHINGLE ROOFER Unavailable Unavailable Gonzalo, Mariae [place] ALUMINUM SHINGLE ROOFER Unavailable Unavailable Gonzalo, Mariae Kenna ALUMINUM SHINGLE ROOFER Unavailable Unavailable Gonzalo, Mariae Kenna ALUMINUM SHINGLE ROOFER Unavailable Unavailable Gonzalo, Mariae [place] ALUMINUM SHINGLE ROOFER Unavailable Unavailable Gonzalo, Mariae [place] ALUMINUM SHINGLE ROOFER Unavailable Unavailable Forrest[place], Mariae [place] ALUMINUM SHINGLE ROOFER Unavailable Unavailable Gonzalo, Mariae [place] ALUMINUM SHINGLE ROOFER Unavailable Unavailable Forrest[place], Mariae [place] ALUMINUM SHINGLE ROOFER Unavailable Unavailable Forrest[place], Mariae [place] ALUMINUM SHINGLE ROOFER Unavailable Unavailable Gonzalo, Mariae [place] ALUMINUM SHINGLE ROOFER Unavailable Unavailable Forrest[place], Mariae [place] ALUMINUM SHINGLE ROOFER Unavailable Unavailable Forreston, Mariae Kenna ALUMINUM SHINGLE ROOFER Unavailable Unavailable Forreston, Mariae Kenna ALUMINUM SHINGLE ROOFER Unavailable Unavailable Forreston, Mariae [place] ALUMINUM SHINGLE ROOFER Unavailable Unavailable Forrest[place], Mariae [place] ALUMINUM SHINGLE ROOFER Unavailable Unavailable Forrest[place], Mariae [place] ALUMINUM SHINGLE ROOFER Unavailable Unavailable Gonzalo, Cisco [place] ALUMINUM SHINGLE ROOFER Unavailable Unavailable Courtney, Alphonso Maynard MD Unavailable [...] Unavailable Courtney, Alphonso Maynard MD Unavailable Unavailable [place], Alphonso Maynard MD Unavailable Unavailable Courtney, Alphonso Maynard MD Unavailable Unavailable Courtney, Alphonso Maynard MD Unavailable Unavailable Courtney, Alphonso Maynard MD Unavailable Unavailable Courtney, Alphonso Maynard MD Unavailable Unavailable Courtney, Alphonso Maynard MD Unavailable Unavailable Courtney, Alphonso Maynard MD Unavailable Unavailable Courtney, Alphonso Maynard MD Unavailable Unavailable Courtney, Alphonso OsheaMalaika MD Unavailable Unavailable Courtney, C Malaika MD Unavailable Unavailable Courtney, C Malaika MD Unavailable Unavailable Courtney, C Malaika MD Unavailable Unavailable Courtney, C Malaika MD Unavailable Unavailable Courtney, C Malaika MD Unavailable Unavailable Courtney, C Malaika MD Unavailable Unavailable Courtney, C Malaika MD Unavailable Unavailable Courtney, C Malaika MD Unavailable Unavailable Courtney, C Malaika MD Unavailable Unavailable Courtney, C Malaika MD Unavailable Unavailable Courtney, C Malaika MD Unavailable Unavailable Courtney, C Malaika MD Unavailable Unavailable Courtney, C Malaika MD Unavailable Unavailable Courtney, C Malaika MD Unavailable Unavailable Courtney, C Malaika MD Unavailable Unavailable Courtney, C Malaika MD Unavailable Unavailable Courtney, C Malaika MD Unavailable Unavailable Courtney, C Malaika MD Unavailable Unavailable Courtney, C Malaika MD Unavailable Unavailable Courtney, C Malaika MD Unavailable Unavailable Courtney, C Malaika MD Unavailable Unavailable Courtney, C Malaika MD Unavailable Unavailable Courtney, C Malaika MD Unavailable Unavailable Courtney, C Malaika MD Unavailable Unavailable Courtney, C Malaika MD Unavailable Unavailable Courtney, C Malaika MD Unavailable Unavailable Courtney, C Malaika WELLS Unavailable Unavailable CHANLIECCO, C RODRIGUEZ WELLS Unavailable Unavailable CHANLIECCO, Alphonso FRIAS MD Unavailable Unavailable CHANLIECCO, Alphonso FRIAS MD Unavailable Unavailable CHANLIECCO, Alphonso FRIAS MD Unavailable Unavailable CHANLIECCO, Alphonso FRIAS MD Unavailable Unavailable CHANLIECCO, Alphonso FRIAS MD Unavailable Unavailable CHANLIECCO, Alphonso FRIAS MD Unavailable Unavailable CHANLIECCO, Alphonso FRIAS MD Unavailable Unavailable CHANLIECCO, C RODRIGUEZ WELLS Unavailable Unavailable CHANLIECCO, C RODRIGUEZ WELLS Unavailable Unavailable CHANLIECCO, C RODRIGUEZ WELLS Unavailable Unavailable Re-disclosure Warning The records that [...] is protected by Article 27-F of the [facility] Public Health law. If you continue you may have access to information: Regarding HIV / AIDS; Provided by facilities licensed or operated by the [facility] Office of Mental Health; or Provided by the [facility] Office for People With Developmental Disabilities. If such information is present, then the following [facility] mandated warning applies: This information [...] law may result in a fine or nursing home sentence or both. A general authorization for the release of medical or other information is NOT sufficient authorization for further disc losure. Allergies and Adverse Reactions Type Description Substance Reaction Status Data Source(s ) No Known Drug Allergies No Known Drug Allergies [facility] Family History Family Member Name Family Member Gender Family Member Status Date o f Status Description Data Source(s) Unknown Unknown Problem [facility] ([facility], ) Encounters Encounter Providers Location Date Indications Data Source(s ) Outpatient Attender: Armen Mccann NP [email or web address] 12:00:00 AM EST - 12/29/2020 01:21:28 PM EST [facility] Outpatient<td ID="encounterTypeDescripti onID0">TRANSITIONAL CARE MANAGEMENT</td><td>Malaika Valdez MD</td><td>Family Medicine [facility]</td><td>12/22/2020</td><td>10:24AM</td><td>11/24/2020 11:59PM</td><td><content ID="encounterDiagnosisID0-0">Esophagitis</content>, <content ID="encounterDiagnosisID0-1">Acute Duodenitis</content>, <content ID="encounterDiagnosisID0-2">Anemia Normochromic, Normocytic</content>, <content ID="encounterDiagnosisID0-3">Essential Hypertension Benign</content>, <content ID="encounterDiagnosisID0-4">Hyperlipidemia</content>, <content ID="encounterDiagnosisID0-5">Diabetes Mellitus Type 2 in Obese</content>, <content ID="encounterDiagnosisID0-6">Coronary Artery Disease</content>, <content ID="encounterDiagnosisID0-7">Chronic Obstructive Pulmonary Disease</content></td> Attender: Malaika Valdez MD [facility] 12/22/2020 10:24:00 AM EDT - 11/24/2020 11:59:00 PM ED T Coronary Artery DiseaseDiabetes Mellitus Type 2 in ObeseHyperlipidemiaAnemia Normochromic, NormocyticAcute DuodenitisEsophagitisChronic Obstructive Pulmonary DiseaseEssential Hypertension Benign [facility] ([facility]) Coronary Artery Disease Diabetes Mellitus Type 2 in Obese Hyperlipidemia Anemia Normochromic, Normocytic Acute Duodenitis Esophagitis Chronic Obstructive Pulmonary Disease Essential Hypertension Benign Emergency Attender: RODRIGUEZ FISCHER MDConsultant: Giles Valdez MD 12/13/2020 07:59:00 AM EDT - 12/13/2020 10:50:00 AM EDT [facility] Patient discharged. <td ID="encounterTypeDescriptionID1">HOS P I/P F/U</td><td>Kenna Sánchez NP</td><td>[facility]</td><td>11/24/2020</td><td>12:59PM</td><td>1:49PM</td><td><content ID="encounterDiagnosisID1-0">Duodenitis</content>, <content ID="encounterDiagnosisID1-1">Essential Hypertension Benign</content></td>Outpatient Attender: Kenna Sánchez NP [facility] 11/24/2020 12:59:00 PM EDT - 11/24/2020 01:49:00 PM ED T DuodenitisEssential Hypertension Benign [facility] ([facility]) Duodenitis Essential Hypertension Benign Outpatient<td ID="encounterTypeDescripti onID3">STANDARD OV</td><td>Kenna Sánchez NP</td><td>[facility],</td><td>10/09/2020</td><td>8:39AM</td><td>9:30AM</td><td><content ID="encounterDiagnosisID3-0">Essential Hypertension Benign</content>, <content ID="encounterDiagnosisID3-1">Diabetes Mellitus Type 2 Without Complication</content>, <content ID="encounterDiagnosisID3- 2">Hyperlipidemia</content>, <content ID="encounterDiagnosisID3-3">Gerd</content></td> Attender: Kenna Sánchez NP [facility], 10/09/2020 08:39:00 AM EDT - 10/09/2020 09:30:00 AM EDT HyperlipidemiaDiabetes Mellitus Type 2 W ithout ComplicationHyperlipidemiaDiabetes Mellitus Type 2 Without ComplicationEssential Hypertension BenignEssential Hypertension BenignGerdGerd [facility] ([facility]) Hyperlipidemia Diabetes Mellitus Type 2 Without Complic ation Hyperlipidemia Diabetes Mellitus Type 2 Without Complic ation Essential Hypertension Benign Essential Hypertension Benign Gerd Gerd <td ID="encounterTypeDescriptionID2">RX UPDATE</td><td>Kenna Sánchez NP</td><td>[facility],</td><td>11/18/2020</td><td>10/09/2020 8:17AM</td><td>10/09/2020 11:59PM</td><td></td>Outpatient Attender: Kenna Sánchez NP [facility], 10/09/2020 08:17:00 AM EDT - 10/09/2020 11:59:00 PM EDT [facility] ([facility]) Outpatient Attender: Armen Mccann NP P.[email or web address] 12:00:00 AM EDT - 08/18/2020 01:37:20 PM EDT [facility] Outpatient<td ID="encounterTypeDescripti onID4">STANDARD OV</td><td>Kenna Cisco Sánchez NP</td><td>[facility]</td><td>07/14/2020</td><td>9:05AM</td><td>9:53AM</td><td><content ID="encounterDiagnosisID4-0">Diabetes Mellitus Type 2</content>, <content ID="encounterDiagnosisID4-1">Essential Hypertension Benign</content>, <content ID="encounterDiagnosisID4-2">Hyperlipidemia</content>, <content ID="encounterDiagnosisID4-3">Gerd</content></td> Attender: Kenna Sánchez NP [facility] 07/14/2020 09:05:00 AM EDT - 07/14/2020 09:53:00 AM EDT HyperlipidemiaDiabetes Mellitus Type 2Hy perlipidemiaDiabetes Mellitus Type 2HyperlipidemiaDiabetes Mellitus Type 2Essential Hypertension BenignEssential Hypertension BenignEssential Hypertension BenignGerdGerdGd [facility] ([facility]) Hyperlipidemia Diabetes Mellitus Type 2 Hyperlipidemia Diabetes Mellitus Type 2 Hyperlipidemia Diabetes Mellitus Type 2 Essential Hypertension Benign Essential Hypertension Benign Essential Hypertension Benign Gerd Gerd Gerd Outpatient<td ID="encounterTypeDescripti onID5">E-VISIT E/M</td><td>Kenna Sánchez NP</td><td>[facility]</td><td>04/16/2020</td><td>8:49AM</td><td>11:43AM</td><td><content ID="encounterDiagnosisID5-0">Hyperhidrosis Focal</content>, <content ID="encounterDiagnosisID5-1">Diabetes Mellitus Type 2</content>, <content ID="encounterDiagnosisID5-2">Essential Hypertension Benign</content>, <content ID="encounterDiagnosisID5-3">Hyperlipidemia</content>, <content ID="encounterDiagnosisID5-4">Vitamin D Deficiency</content></td> Attender: Kenna Sánchez NP [facility], 04/16/2020 08:49:00 AM EST - 04/16/2020 11:43:00 AM EST Vitamin D DeficiencyHyperlipidemiaDiabet es Mellitus Type 2Hyperhidrosis FocalVitamin D DeficiencyHyperlipidemiaDiabetes Mellitus Type 2Hyperhidrosis FocalVitamin D DeficiencyHyperlipidemiaDiabetes Mellitus Type 2Hyperhidrosis FocalVitamin D DeficiencyHyperlipidemiaDiabetes Mellitus Type 2Hyperhidrosis FocalEssential Hypertension BenignEssential Hypertension BenignEssential Hypertension BenignEssential Hypertension Benign [facility] ([facility]) Vitamin D Deficiency Hyperlipidemia Diabetes Mellitus Type 2 Hyperhidrosis Focal Vitamin D Deficiency Hyperlipidemia Diabetes Mellitus Type 2 Hyperhidrosis Focal Vitamin D Deficiency Hyperlipidemia Diabetes Mellitus Type 2 Hyperhidrosis Focal Vitamin D Deficiency Hyperlipidemia Diabetes Mellitus Type 2 Hyperhidrosis Focal Essential Hypertension Benign Essential Hypertension Benign Essential Hypertension Benign Essential Hypertension Benign Outpatient Attender: Armen Mccann NP SJP.[email or web address]-SJP.[email or web address] [id number] 12:00:00 AM EST - 02/12/2020 01:54:28 PM EST [facility] Outpatient<td ID="encounterTypeDescripti onID6">STANDARD OV</td><td>Kenna Sánchez NP</td><td>[facility],</td><td>01/01/2020</td><td>12:27PM</td><td>1:59PM</td><td><content ID="encounterDiagnosisID6-0">Hyperhidrosis</content>, <content ID="encounterDiagnosisID6-1">Secondary Hypertension Benign</content>, <content ID="encounterDiagnosisID6-2">Diabetes Mellitus Type 2 with Complication</content></td> Attender: Kenna Sánchez NP [facility] 01/01/2020 12:27:00 PM EST - 01/01/2020 01:59:00 PM ES T Diabetes Mellitus Type 2 with ComplicationSecondary Hypertension BenignHyperhidrosisDiabetes Mellitus Type 2 with ComplicationSecondary Hypertension BenignHyperhidrosisDiabetes Mellitus Type 2 with C omplicationSecondary Hypertension BenignHyperhidrosisDiabetes Mellitus Type 2 with ComplicationSecondary Hypertension BenignHyperhidrosisDiabetes Mellitus Type 2 with ComplicationSecondary Hypertension BenignHyperhidrosis [facility] ([facility]) Diabetes Mellitus Type 2 with Complicati [...] Date Status Description Data Source(s) COVID-19 VACCINE [employer] 05/21/2020 12:00:00 AM EDT completed [employer] Vaccine Series Complete: YESThis Data wa s Submitted to [facility] Via [employer]. COVID-19 VACCINE [employer] 04/30/2020 12:00:00 AM EST completed [employer] Vaccine Series Complete: NOThis Data was Submitted to [facility] Via [employer]. Medications Medication Brand Name Start Date Product Form Dose Route Admi nistrative Instructions Pharmacy Instructions Status Indications Reaction Description Data Source(s) pantoprazole 40 MG Delayed Release Oral Tablet PANTOPRAZOLE SODIUM 12/23/2020 12:00:00 AM EDT tablet,delayed release (DR/EC) 60 T JESENIA ONE TABLET BY MOUTH TWICE A DAY TAKE ONE TABLET BY MOUTH TWICE A DAY SOLD: 12/23/2020 [facility] 500 mg 12/19/2020 12:00:00 AM EDT tablet 14 TAKE ONE TABLET BY MOUTH TWICE A DAY FOR 7 DAYS TAKE ONE TABLET BY MOUTH TWICE A DAY FOR 7 DAYS SOLD: 2020 [facility] Metronidazole 500 MG Oral Tablet METRONIDAZOLE 12/19/2020 12:0 0:00 AM EDT tablet 21 TAKE ONE TABLET BY MOUTH THREE T IMES A DAY FOR 7 DAYS TAKE ONE TABLET BY MOUTH THREE TIMES A DAY FOR 7 DAYS SOLD: 12/22/2020 [facility] 1 gram 12/19/2020 12:00:00 AM EDT tablet 120 TAKE 1TABLET BY MOUTH 4 TIMES A DAY BEFORE MEALS AND AT BEDTIME ON EMPTY STOMACH TAKE 1TABLET BY MOUTH 4 TIMES A DAY BEFORE MEALS AND AT BEDTIME ON EMPTY STOMACH SOLD: 12/22/2020 [facility] 1 billion cell- 250 mg 12/19/2020 12:00:00 AM EDT tablet 28 TAKE ONE TABLET BY MOUTH WITH MEALS / AT BEDTIME DIRECTED TAKE ONE TABLET BY MOUTH WITH MEALS / AT BEDTIME DIRECTED SOLD: 12/22/2020 [facility] pantoprazole 40 MG Delayed Release Oral Tablet PANTOPRAZOLE SODIUM 12/15/2020 12:00:00 AM EDT tablet,delayed release (DR/EC) 30 T JESENIA ONE TABLET BY MOUTH EVERY DAY TAKE ONE TABLET BY MOUTH EVERY DAY SOLD: 12/16/2020 [facility] pantoprazole 40 MG Delayed Release Oral Tablet Pantoprazole Sodium 40 MG Oral Tablet Delayed Release Pantoprazole Sodium 40 MG Oral Tablet Delayed Release 12/15/2020 12:00:00 AM EDT active pantoprazole 40 MG Delayed Release Oral Tablet [facility] ([facility]) 500 mg 12/11/2020 12:00:00 AM EDT tablet 180 TAKE ONE TABLET BY MOUTH TWO TIMES A DAY TAKE ONE TABLET BY MOUTH TWO TIMES A DAY SOLD: 12/11/2020 [facility] pantoprazole 40 MG Delayed Release Oral Tablet Pantoprazole Sodium 40 MG Oral Tablet Delayed Release Pantoprazole Sodium 40 MG Oral Tablet Delayed Release 12/11/2020 12:00:00 AM EDT aborted pantoprazole 40 MG Delayed Release Oral Tablet [facility] ([facility]) 1 gram 12/06/2020 12:00:00 AM EDT tablet 60 TAKE ONE TABLET BY MOUTH TWICE A DAY TAKE ONE TABLET BY MOUTH TWICE A DAY SOLD: 12/07/2020 [facility] 10 mg 12/06/2020 12:00:00 AM EDT tablet 90 TAKE 1 TABLET [10MG] BY MOUTH THREE TIMES A DAY BEFORE MEALS TAKE 1 TABLET [10MG] BY MOUTH THREE TIME S A DAY BEFORE MEALS SOLD: 12/07/2020 [facility] 5 mg 11/25/2020 12:00:00 AM EDT tablet 90 TAKE ONE TABLET BY MOUTH EVERY DAY TAKE ONE TABLET BY MOUTH EVERY DAY SOLD: 11/25/2020 [facility] Amlodipine 5 MG Oral Tablet amLODIPine Besylate 5 MG O ral Tablet amLODIPine Besylate 5 MG Oral Tablet 11/24/2020 12:00:00 AM EDT active amlodipine 5 MG Oral Tablet [facility] ([facility]) Sucralfate 1000 MG Oral Tablet Sucralfate 1 GM Oral Ta blet Sucralfate 1 GM Oral Tablet 11/24/2020 12:00:00 AM EDT active sucralfate 1000 MG Oral Tablet [facility] ([facility]) 0.004 % 11/19/2020 12:00:00 AM EDT drops 5 INSTILL 1 DROP IN EACH EYE EVERY EVENING INSTILL 1 DROP IN EACH EYE EVERY EVENING SOLD: 11/20/2020 [facility] Metoclopramide 10 MG Oral Tablet [Reglan] Reglan 10 MG Oral Tablet Reglan 10 MG Oral Tablet 11/18/2020 12:00:00 AM EDT active metoclopramide 10 MG Oral Tablet [Reglan] [facility]) pantoprazole 40 MG Delayed Release Oral Tablet Pantoprazole Sodium 40 MG Oral Tablet Delayed Release Pantoprazole Sodium 40 MG Oral Tablet Delayed Release 11/18/2020 12:00:00 AM EDT aborted pantoprazole 40 MG Delayed Release Oral Tablet [facility] ([facility]) 1 gram 11/13/2020 12:00:00 AM EDT tablet [...] AY (BEFORE FOOD & BEDTIME) SOLD: 11/13/2020 [facility] pantoprazole 40 MG Delayed Release Oral Tablet PANTOPRAZOLE SODIUM 11/13/2020 12:00:00 AM EDT tablet,delayed release (DR/EC) 60 T JESENIA ONE TABLET BY MOUTH TWICE A DAY TAKE ONE TABLET BY MOUTH TWICE A DAY SOLD: 11/13/2020 [facility] Fenofibrate 48 MG Oral Tablet FENOFIBRATE NANOCRYSTALLIZED 0 10/30/2020 12:00:00 AM EDT tablet 30 TAKE ONE TABLET BY MOUTH AT BEDTIME TAKE ONE TABLET BY MOUTH AT BEDTIME SOLD: 10/30/2020 [facility] Fenofibrate 48 MG Oral Tablet FENOFIBRATE NANOCRYSTALLIZED 0 10/30/2020 12:00:00 AM EDT tablet 30 TAKE ONE TABLET BY MOUTH AT BEDTIME TAKE ONE TABLET BY MOUTH AT BEDTIME SOLD: 11/30/2020 [facility] BLOOD SUGAR DIAGNOSTIC 10/24/2020 12:00:00 AM EDT strip 100 TEST TWO TIMES A DAY TEST TWO TIMES A DAY SOLD: 10/28/2020 [facility] BLOOD SUGAR DIAGNOSTIC 10/24/2020 12:00:00 AM EDT strip 100 TEST TWO TIMES A DAY TEST TWO TIMES A DAY SOLD: 12/16/2020 [facility] Accu-Chek Yi Plus In Vitro Strip Accu-Chek Yi Plus In Vitro Strip 10/23/2020 12:00:00 AM EDT active Accu-Chek Yi Plus [facility] ([facility]) Klor-Con M20 20 MEQ Oral Tablet Extended Release Klor- Con M20 20 MEQ Oral Tablet Extended Release 10/09/2020 12:00:00 AM EDT active Microencapsulated potassium chloride 20 MEQ Extended Release Oral Tablet [Klor-Con] [facility] ([facility]) 1,250 mcg (50,000 unit) 10/09/2020 12:00:00 AM EDT capsule 2 TAKE ONE CAPSULE BY MOUTH EVERY 2 WEEKS TAKE ONE CAPSULE BY MOUTH EVERY 2 WEEKS SOLD: 12/04/2020 [facility] Losartan Potassium 100 MG Oral Tablet Losartan Potassium 100 MG Oral Tablet 10/09/2020 12:00:00 AM EDT 1 active losartan potassium 100 MG Oral Tablet [facility] ([facility]) 81 mg 10/09/2020 12:00:00 AM EDT tablet,delayed release (DR/EC) 90 TAKE ONE TABLET BY MOUTH ONCE DAILY TAKE ONE TABLET BY MOUTH ONCE DAILY SOLD: 10/09/2020 [facility] 100 mg 10/09/2020 12:00:00 AM EDT tablet 90 TAKE ONE TABLET BY MOUTH ONCE DAILY TAKE ONE TABLET BY MOUTH ONCE DAILY SOLD: 10/09/2020 [facility] Metformin hydrochloride 500 MG Oral Tablet metFORMIN H Cl 500 MG Oral Tablet metFORMIN HCl 500 MG Oral Tablet 10/09/2020 12:00:00 AM EDT active metformin hydrochloride 500 MG Oral Tablet [facility] ([facility]) 40 mg 10/09/2020 12:00:00 AM EDT capsule,delayed release (DR/EC) 90 TAKE ONE CAPSULE BY MOUTH EVERY MORNING TAKE ONE CAPSULE BY MOUTH EVERY MORNING SOLD: 10/09/2020 [facility] Esomeprazole 40 MG Delayed Release Oral Capsule [Nexium] NexIUM 40 MG Oral Capsule Delayed Release NexIUM 40 MG Oral Capsule Delayed Release 10/09/2020 12:00:00 AM EDT aborted esomeprazole 40 MG Delayed Release Oral Capsule [Nexium] [facility] ([facility]) LANCETS 10/09/2020 12:00:00 AM EDT misc 100 TEST TWO TIMES A DAY TEST TWO TIMES A DAY SOLD: 10/09/2020 [facility] 25 mg 10/09/2020 12:00:00 AM EDT tablet 30 TAKE ONE TABLET BY MOUTH ONCE DAILY TAKE ONE TABLET BY MOUTH ONCE DAILY SOLD: 10/09/2020 [facility] Simvastatin 80 MG Oral Tablet Simvastatin 80 MG Oral Tablet 10/09/2020 12:00:00 AM EDT active simvastatin 80 MG Oral Tablet [facility] ([facility]) 50 mg 10/09/2020 12:00:00 AM EDT tablet 180 TAKE ONE TABLET BY MOUTH TWO TIMES A DAY TAKE ONE TABLET BY MOUTH TWO TIMES A DAY SOLD: 10/09/2020 [facility] Accu-Chek Soft Touch Lancets Miscellaneous Accu-Chek S oft Touch Lancets Miscellaneous 10/09/2020 12:00:00 AM EDT comp leted Accu-Chek Soft Touch Lancets [facility] ([facility]) 1,250 mcg (50,000 unit) 10/09/2020 12:00:00 AM EDT capsule 2 TAKE ONE CAPSULE BY MOUTH EVERY 2 WEEKS TAKE ONE CAPSULE BY MOUTH EVERY 2 WEEKS SOLD: 10/09/2020 [facility] Ergocalciferol 87743 UNT Oral Capsule [D risdol] Drisdol 1.25 MG (10144 UT) Oral Capsule Drisdol 1.25 MG (94131 UT) Oral Capsule 10/09/2020 12:00:00 AM EDT active ergocalciferol 1.25 MG Oral Capsule [Drisdol] [facility] ([facility]) Fenofibrate 48 MG Oral Tablet Fenofibrate 48 MG Oral Tablet 10/09/2020 12:00:00 AM EDT active fenofibrate 48 MG Oral Tablet [facility] ([facility]) 25 mg 10/09/2020 12:00:00 AM EDT tablet 30 TAKE ONE TABLET BY MOUTH ONCE DAILY TAKE ONE TABLET BY MOUTH ONCE DAILY SOLD: 11/06/2020 [facility] Hydrochlorothiazide 25 MG Oral Tablet hydroCHLOROthiaz ruth ann 25 MG Oral Tablet hydroCHLOROthiazide 25 MG Oral Tablet 10/09/2020 12:00:00 AM EDT active hydrochlorothiazide 25 MG Oral T ablet [facility] ([facility]) 25 mg 10/09/2020 12:00:00 AM EDT [...] EDT active SM Aspirin Adult Low Strength [facility] ([facility]) Atenolol 50 MG Oral Tablet [Tenormin] Tenormin 50 MG O ral Tablet Tenormin 50 MG Oral Tablet 10/09/2020 12:00:00 AM EDT active atenolol 50 MG Oral Tablet [Tenormin] [facility] ([facility]) 80 mg 10/09/2020 12:00:00 AM EDT [...] aborted fenofibrate 48 M G Oral Tablet [facility] [facility] Fenofibrate 48 MG Oral Tablet FENOFIBRATE [...] TABLET BY MOUTH AT BEDTIME SOLD: 10/04/2020 [facility] LANCETS 07/14/2020 12:00:00 AM EDT misc 100 TEST TWO TIMES A DAY TEST TWO TIMES A DAY SOLD: 07/15/2020 [facility] Atenolol 50 MG Oral Tablet [Tenormin] Tenormin 50 MG O ral Tablet Tenormin 50 MG Oral Tablet 07/14/2020 12:00:00 AM EDT aborte d atenolol 50 MG Oral Tablet [Tenormin] [facility] ([facility]) 80 mg 07/14/2020 12:00:00 AM EDT [...] aborted simvastatin 80 M G Oral Tablet [facility] ([facility]) Esomeprazole 40 MG Delayed Release Oral Capsule [Nexium] NexIUM 40 MG Oral Capsule Delayed Release NexIUM 40 MG Oral Capsule Delayed Release 07/14/2020 12:00:00 AM EDT aborted esomeprazole 40 MG Delayed Release Oral Capsule [Nexium] [facility]) Ergocalciferol 64813 UNT Oral Capsule [D risdol] Drisdol 1.25 MG (00431 UT) Oral Capsule Drisdol 1.25 MG (98935 UT) Oral Capsule 07/14/2020 12:00:00 AM EDT aborted ergocalciferol 1.25 MG Oral Capsule [Drisdol] [facility] ([facility]) Metformin hydrochloride 500 MG Oral Tablet metFORMIN H Cl 500 MG Oral Tablet metFORMIN HCl 500 MG Oral Tablet 07/14/2020 12:00:00 AM EDT aborted metformin hydrochloride 500 MG Oral Tablet [facility]) Losartan Potassium 100 MG Oral Tablet Losartan Potassium 100 MG Oral Tablet 07/14/2020 12:00:00 AM EDT 1 aborted losartan potassium 100 MG Oral Tablet [facility]) 20 mEq 07/14/2020 12:00:00 AM EDT tablet,ER particles/cry stals 30 TAKE ONE TABLET BY MOUTH AT BEDTIME TAKE ONE TABLET BY MOUTH AT BEDTIME SOLD: 07/15/2020 [facility] Klor-Con M20 20 MEQ Oral Tablet Extended Release Klor- Con M20 20 MEQ Oral Tablet Extended Release 07/14/2020 12:00:00 AM EDT aborted Microencapsulated potassium chloride 20 MEQ Extended Release Oral Tablet [Klor-Con] [facility]) 25 mg 07/14/2020 12:00:00 AM [...] aborted hydrochlorothiazide 25 MG Oral T ablet [facility]) Fenofibrate 48 MG Oral Tablet Fenofibrate 48 MG Oral Tablet 07/14/2020 12:00:00 AM EDT aborted fen[facility]ibrate 48 [facility] G [facility] Accu-Chek Soft Touch Lancets Miscellaneous Accu-Chek S oft Touch Lancets Miscellaneous 07/14/2020 12:00:00 AM EDT abor rufino Accu-Chek Soft Touch Lancets [facility] ([facility]) Accu-Chek Yi Plus In Vitro Strip Accu-Chek Yi Plus In Vitro Strip 07/14/2020 12:00:00 AM EDT completed Accu-Chek Yi Plus [facility] ([facility]) Ergocalciferol 22748 UNT Oral Capsule [D risdol] Drisdol 1.25 MG (35181 UT) Oral Capsule Drisdol 1.25 MG (47024 UT) Oral Capsule 07/14/2020 12:00:00 AM EDT aborted ergocalciferol 1.25 MG Oral Capsule [Drisdol] [facility] ([facility]) 81 mg 07/11/2020 12:00:00 AM EDT tablet,delayed release (DR/EC) 90 TAKE ONE TABLET BY MOUTH EVERY DAY TAKE ONE TABLET BY MOUTH EVERY DAY SOLD: 07/12/2020 [facility] SM Aspirin Adult Low Strength 81 MG Oral Tablet Delaye d Release SM Aspirin Adult Low Strength 81 MG Oral Tablet Delayed Release 07/10/2020 12:00:00 AM EDT aborted SM Aspirin Adult Low Strength [facility] ([facility]) 20 mEq 06/12/2020 12:00:00 AM EDT [...] mg 04/24/2020 12:00:00 AM EST tablet,delayed release (/EC) 90 TAKE 1 TABLET BY MOUTH ONCE DAILY TAKE 1 TABLET BY MOUTH ONCE DAILY SOLD: 04/24/2020 [facility] Aspirin Adult Low Strength 81 MG Oral Tablet Delayed R elease Aspirin Adult Low Strength 81 MG Oral Tablet Delayed Release 2020 12:00:00 AM EST aborted Aspirin Adult Low Strength [facility] ([facility]) Ergocalciferol 21742 UNT Oral Capsule [D risdol] Drisdol 1.25 MG (67872 UT) Oral Capsule Drisdol 1.25 MG (66163 UT) Oral Capsule 2020 12:00:00 AM EST aborted ergocalciferol 1.25 MG Oral Capsule [Drisdol] [facility] ([facility]) Fenofibrate 48 MG Oral Tablet Fenofibrate 48 MG Oral Tablet 04/22/2020 12:00:00 AM EST aborted fenofibrate 48 M G Oral Tablet [facility] ([facility]) Fenofibrate 48 MG Oral Tablet FENOFIBRATE [...] aborted simvastatin 80 M G Oral Tablet [facility]) Fenofibrate 48 MG Oral Tablet [Tricor] Tricor 48 MG Or al Tablet Tricor 48 MG Oral Tablet 04/16/2020 12:00:00 AM EST aborte d fenofibrate 48 MG Oral Tablet [Tricor] [facility] ([facility]) Atenolol 50 MG Oral Tablet [Tenormin] Tenormin 50 MG O ral Tablet Tenormin 50 MG Oral Tablet 04/16/2020 12:00:00 AM EST aborte d atenolol 50 MG Oral Tablet [Tenormin] [facility] ([facility]) Ergocalciferol 91663 UNT Oral Capsule [D risdol] Drisdol 1.25 MG (67747 UT) Oral Capsule Drisdol 1.25 MG (55064 UT) Oral Capsule 04/16/2020 12:00:00 AM EST aborted ergocalciferol 1.25 MG Oral Capsule [Drisdol] [facility] ([facility]) Aspirin Adult Low Strength 81 MG Oral Tablet Delayed R elease Aspirin Adult Low Strength 81 MG Oral Tablet Delayed Release 04/16/2020 12:00:00 AM EST aborted Aspirin Adult Low Strength [facility] ([facility]) Hydrochlorothiazide 25 MG Oral Tablet hydroCHLOROthiaz ruth ann 25 MG Oral Tablet hydroCHLOROthiazide 25 MG Oral Tablet 04/16/2020 12:00:00 AM EST aborted hydrochlorothiazide 25 MG Oral T ablet [facility] ([facility]) Klor-Con M20 20 MEQ Oral Tablet Extended Release Klor- Con M20 20 MEQ Oral Tablet Extended Release 04/16/2020 12:00:00 AM EST aborted Microencapsulated potassium chloride 20 MEQ Extended Release Oral Tablet [Klor-Con] [facility] ([facility]) Losartan Potassium 100 MG Oral Tablet Losartan Potassium 100 MG Oral Tablet 04/16/2020 12:00:00 AM EST 1 aborted losartan potassium 100 MG Oral Tablet [facility] ([facility]) Esomeprazole 40 MG Delayed Release Oral Capsule [Nexium] NexIUM 40 MG Oral Capsule Delayed Release NexIUM 40 MG Oral Capsule Delayed Release 04/16/2020 12:00:00 AM EST aborted esomeprazole 40 MG Delayed Release Oral Capsule [Nexium] [facility] ([facility]) Metformin hydrochloride 500 MG Oral Tablet metFORMIN H Cl 500 MG Oral Tablet metFORMIN HCl 500 MG Oral Tablet 04/16/2020 12:00:00 AM EST aborted metformin hydrochloride 500 MG Oral Tablet [facility] ([facility]) LANCETS 03/22/2020 12:00:00 AM EST misc 100 USE 1 LANCET TO TEST TWICE A DAY USE 1 LANCET TO TEST TWICE A DAY SOLD: 03/26/2020 [facility] BLOOD SUGAR DIAGNOSTIC 01/19/2020 12:00:00 AM EST strip 100 TEST TWO TIMES A DAY TEST TWO TIMES A DAY SOLD: 01/20/2020 [facility] BLOOD SUGAR DIAGNOSTIC 01/19/2020 12:00:00 AM EST strip 100 TEST TWO TIMES A DAY TEST TWO TIMES A DAY SOLD: 09/06/2020 [facility] Metformin hydrochloride 500 MG Oral Tablet METFORMIN [...] BY MOUTH EVERY MORNING SOLD: 02/07/2020 [facility] Atenolol 50 MG Oral Tablet ATENOLOL 01/04/2020 12:00:00 AM EST tablet 60 TAKE ONE TABLET BY MOUTH TWO TIMES A DAY TAKE ONE TABLET BY MOUTH TWO TIMES A DAY SOLD: 03/26/2020 [facility] Esomeprazole 40 MG Delayed Release [...] BY MOUTH EVERY MORNING SOLD: 03/11/2020 [facility] Atenolol 50 MG Oral Tablet [...] BY MOUTH AT BEDTIME SOLD: 03/26/2020 [facility] Losartan Potassium 100 MG Oral Tablet losartan (COZAAR ) 100 MG tablet losartan (COZAAR) 100 MG tablet 01/02/2020 12:00:00 AM EST 100 mg Oral active Take [address] [facility] Fenofibrate 48 MG Oral Tablet fenofibrate (TRICOR) 48 MG tablet fenofibrate (TRICOR) 48 MG tablet 01/02/2020 12:00:00 AM EST 48 mg Oral active Take [address] [facility] Fenofibrate 48 MG Oral Tablet FENOFIBRATE NANOCRYSTALLIZED [...] 12:00:00 AM EST aborted Accu-Chek Yi Plus [facility] ([facility]) Aspirin 81 MG Delayed Release Oral Table t [Ecotrin] Ecotrin Low Strength 81 MG Oral Tablet Delayed Release Ecotrin Low Strength 81 MG Oral Tablet D elayed Release 01/01/2020 12:00:00 AM EST aborted aspirin 81 MG Delayed Release Oral Tablet [Ecotrin] [facility] ([facility]) Ergocalciferol 69978 UNT Oral Capsule [D risdol] Drisdol 1.25 MG (99616 UT) Oral Capsule Drisdol 1.25 MG (58945 UT) Oral Capsule 01/01/2020 12:00:00 AM EST aborted ergocalciferol 1.25 MG Oral Capsule [Drisdol] [facility]) Klor-Con M20 20 MEQ Oral Tablet Extended Release Klor- Con M20 20 MEQ Oral Tablet Extended Release 01/01/2020 12:00:00 AM EST aborted Microencapsulated potassium chloride 20 MEQ Extended Release Oral Tablet [Klor-Con] [facility]) Hydrochlorothiazide 25 MG Oral Tablet hydroCHLOROthiaz ruth ann 25 MG Oral Tablet hydroCHLOROthiazide 25 MG Oral Tablet 01/01/2020 12:00:00 AM EST aborted hydrochlorothiazide 25 MG Oral T ablet [facility]) Losartan Potassium 100 MG Oral Tablet Losartan Potassium 100 MG Oral Tablet 01/01/2020 12:00:00 AM EST 1 aborted losartan potassium 100 MG Oral Tablet [facility]) Simvastatin 80 MG Oral Tablet Simvastatin 80 MG Oral Tablet 01/01/2020 12:00:00 AM EST aborted simvastatin 80 M G Oral Tablet [facility]) Metformin hydrochloride 500 MG Oral Tablet metFORMIN H Cl 500 MG Oral Tablet metFORMIN HCl 500 MG Oral Tablet 01/01/2020 12:00:00 AM EST aborted metformin hydrochloride 500 MG Oral Tablet [facility]) Esomeprazole 40 MG Delayed Release Oral Capsule [Nexium] NexIUM 40 MG Oral Capsule Delayed Release NexIUM 40 MG Oral Capsule Delayed Release 01/01/2020 12:00:00 AM EST aborted esomeprazole 40 MG Delayed Release Oral Capsule [Nexium] [facility]) Atenolol 50 MG Oral Tablet [Tenormin] Tenormin 50 MG O ral Tablet Tenormin 50 MG Oral Tablet 01/01/2020 12:00:00 AM EST aborte d atenolol 50 MG Oral Tablet [Tenormin] [facility]) Fenofibrate 48 MG Oral Tablet [Tricor] Tricor 48 MG Or al Tablet Tricor 48 MG Oral Tablet 01/01/2020 12:00:00 AM EST aborte d fenofibrate 48 MG Oral Tablet [Tricor] [facility]) Metformin hydrochloride 500 MG Oral [...] aborted metformin hydrochloride 500 MG Oral Tablet [facility]) Losartan Potassium 100 MG Oral Tablet Losartan Potassium 100 MG Oral Tablet 10/18/2019 12:00:00 AM EDT 1 aborted losartan potassium 100 MG Oral Tablet [facility]) 50 mg 10/10/2019 12:00:00 AM [...] 20 MEQ Extended Release Oral Tablet [Klor-Con] [facility]) Hydrochlorothiazide 25 MG Oral Tablet hydroCHLOROthiaz ruth ann 25 MG Oral Tablet hydroCHLOROthiazide 25 MG Oral Tablet 10/02/2019 12:00:00 AM EDT aborted hydrochlorothiazide 25 MG Oral T ablet [facility] ([facility]) Accu-Chek Soft Touch Lancets Miscellaneous Accu-Chek S oft Touch Lancets Miscellaneous 10/02/2019 12:00:00 AM EDT abor rufino Accu-Chek Soft Touch Lancets [facility] ([facility]) Ergocalciferol 49667 UNT Oral Capsule [D risdol] Drisdol 1.25 MG (03629 UT) Oral Capsule Drisdol 1.25 MG (18303 UT) Oral Capsule 10/02/2019 12:00:00 AM EDT aborted ergocalciferol 1.25 MG Oral Capsule [Drisdol] [facility]) Atenolol 50 MG Oral Tablet [Tenormin] Tenormin 50 MG O ral Tablet Tenormin 50 MG Oral Tablet 10/02/2019 12:00:00 AM EDT aborte d atenolol 50 MG Oral Tablet [Tenormin] [facility] ([facility]) Simvastatin 80 MG Oral Tablet Simvastatin 80 MG Oral Tablet 10/02/2019 12:00:00 AM EDT aborted simvastatin 80 M G Oral Tablet [facility]) Metformin hydrochloride 500 MG Oral Tablet metFORMIN H Cl 500 MG Oral Tablet metFORMIN HCl 500 MG Oral Tablet 10/02/2019 12:00:00 AM EDT aborted metformin hydrochloride 500 MG Oral Tablet [facility]) Esomeprazole 40 MG Delayed Release Oral Capsule [Nexium] NexIUM 40 MG Oral Capsule Delayed Release NexIUM 40 MG Oral Capsule Delayed Release 10/02/2019 12:00:00 AM EDT aborted esomeprazole 40 MG Delayed Release Oral Capsule [Nexium] [facility]) Fenofibrate 48 MG Oral Tablet [Tricor] Tricor 48 MG Or al Tablet Tricor 48 MG Oral Tablet 10/02/2019 12:00:00 AM EDT aborte d fenofibrate 48 MG Oral Tablet [Tricor] [facility] ([facility]) BLOOD SUGAR DIAGNOSTIC 09/05/2019 12:00:00 AM EDT strip 100 TEST TWO TIMES A DAY TEST TWO TIMES A DAY SOLD: 12/11/2019 [facility] Accu-Chek Yi Plus In Vitro Strip Accu-Chek Yi Plus In Vitro Strip 09/04/2019 12:00:00 AM EDT aborted Accu-Chek Yi Plus [facility]) 80 mg 08/17/2019 12:00:00 AM EDT [...] MG Delayed Release Oral Tablet [Ecotrin] [facility] ([facility]) Fenofibrate 67 MG Oral Capsule fenofibrate micronized (LOFIBRA) 67 MG capsule fenofibrate micronized (LOFIBRA) 67 MG capsule 48 mg Oral aborted Take 48 mg by mouth every morning before breakfast [facility] Losartan Potassium 25 MG Oral Tablet losartan (COZAAR) 25 MG tablet losartan (COZAAR) 25 MG tablet 50 mg Oral aborted Ta ke [address] [facility] Insurance Providers Payer name Policy type / Coverage type Policy ID Covered green party ID Covered green party's relationship to hung Policy Hung Plan Information Medicare Part [place] of [place] Medicare Primary 0 [id number] Self 0 Medicare [place] Medicare Primary 0 [id number] Self 0 Medicare [place] Medicare Primary 0 [id number] Self 0 Medicare [place] Medicare Primary 0 [id number] Self 0 Medicare [place] Medicare Primary 0 [id number] Self 0 HUMANA PPO [id number] SP [id number] Medicare [place] Medicare Primary 0 [id number] Self 0 MEDICARE [id number] Madeleine [id number] A Medicare [place] Medicare Primary 0 [id number] Self 0 HUMANA PPO [id number] SP [id number] Medicare [place] Medicare Primary 0 [id number] Self 0 MEDICARE [id number] SP [id number] A Medicare [place] Medicare Primary 0 [id number] Self 0 Medicare [place] Medicare Primary 0 [id number] Self 0 MEDICAID [id number] SP [id number] MEDICAID [id number] SP [id number] MEDICAID [id number] SP [id number] MEDICAID [id number] [place] [id number] Madeleine [id number] [place] [id number] SP [id number] H EMEDNY [id number] SP [id number] MEDICAID [id number] SP [id number] HUMANA MEDICARE [id number] [phone] [id number] [id number] HUMANA MEDICARE [id number] Madeleine [id number] Medicaid of [place] Supplemental Policy 0 [id number] Self 0 Humana Care Plan Other 0 [id number] Self 0 [place] Supplemental Policy 0 [id number] Self 0 Humana Care Plan Other 0 [id number] Self 0 [place] Supplemental Policy 0 [id number] Self 0 Humana Care Plan Other 0 [id number] Self 0 [place] Supplemental Policy 0 [id number] Self 0 Humana Care Plan Other 0 [id number] Self 0 MEDICARE PART A-O/P [id number] 18 [id number] [place] Supplemental Policy 0 [id number] Self 0 Humana Care Plan Other 0 [id number] Self 0 Medicare Part B of [facility] Medicare Primary 0 [id number] Self 0 [place] Supplemental Policy 0 [id number] Self 0 Humana Care Plan Other 0 [id number] Self 0 Medicare Part B of [facility] Medicare Primary 0 [id number] Self 0 [place] Supplemental Policy 0 [id number] Self 0 [place]ID [place] [id number] MEDICARE PART A [facility] [id number] 18 [id number] [place] Medicare Primary [id number] Self [id number] [place] Medicare Primary [id number] Self [id number] [place] Supplemental Policy 0 [id number] Self 0 [place] Policy 0 [id number] Self 0 [place] Supplemental Policy 0 [id number] Self 0 S [employer], [facility] [id number] S [id number] MEDICAID M [id number] S [id number] MEDICARE C [id number] S [id number] A [facility] ADMINISTRATORS, [facility] C [id number] S [id number] Medicaid [place] Supplemental Policy 0 [id number] Self 0 [place] MEDICARE PART B C [id number] S [id number] [place] Supplemental Policy 0 [id number] Self 0 [place] Supplemental Policy 0 [id number] Self 0 [place] Supplemental Policy 0 [id number] Self 0 [place] Supplemental Policy 0 [id number] Self 0 [place] Supplemental Policy 0 [id number] Self 0 MEDICAID - O/P EMERGENCY ROOM [id number] 18 [id number] MEDICARE -O/P [id number] 18 [id number] MEDICAID-O/P RAD [id number] HUMANA GOLD [id number] SP [id number] Medicaid [facility] Supplemental Policy 0 [id number] Self 0 Medicare Part B [facility] - [facility] Medicare Primary 0 [id number] Self 0 HUMANA GOLD PLUS -O/P [id number] 18 [id number] HUMANA GOLD [id number] SP [id number] [place] Supplemental Policy 0 [id number] Self 0 Humana Care Plan Other 0 [id number] Self 0 [place] Supplemental Policy 0 [id number] Self 0 Humana Care Plan Other 0 [id number] Self 0 [place] Supplemental Policy 0 [id number] Self 0 Humana Care Plan Other 0 [id number] Self 0 [place] Supplemental Policy 0 [id number] Self 0 Humana Care Plan Other 0 [id number] Self 0 [place] Supplemental Policy 0 [id number] Self 0 Humana Care Plan Other 0 [id number] Self 0 MEDICAID-O/P [id number] 18 [id number] MEDICARE PART A-O/P [id number] 18 [id number] [facility] MEDICAID [place] [id number] 18 [id number] HUMANA MEDICARE HMO HM [id number] 18 [id number] Medicaid [facility] Supplemental Policy 0 [id number] Self 0 Humana Care Plan Other 0 [id number] Self 0 [place] Supplemental Policy 0 [id number] Self 0 Humana Care Plan Other 0 [id number] Self 0 Problems, Conditions, and Diagnoses Code Display Name Description Problem Type Effective Dates Data Source(s) Z98.61 Coronary angioplasty status Coronary angioplasty statu s Diagnosis 12/29/2020 12:55:[address] [facility] I10 Essential (primary) hypertension Essential (primary) h ypertension Diagnosis 12/29/2020 12:55:[address] [facility] E78.5 Hyperlipidemia, unspecified Hyperlipidemia, unspecifie d Diagnosis 12/29/2020 12:55:[address] [facility] Z7982 emt intermediate (current) use of aspirin penitentiary (cu [facility]rent) use of aspirin Diagnosis [facility] (primary) hypertension Essential (primary) h ypertension Diagnosis 12/13/2020 07:59:00 AM EDT [facility] J0390 Acute tonsillitis, unspecified Acute tonsillitis, unsp ecified Diagnosis 12/13/2020 07:59:00 AM [facility] J029 Acute pharyngitis, unspecified Acute pharyngitis, unsp ecified Diagnosis 12/13/2020 07:59:00 AM [facility] 705.21 Hyperhidrosis Hyperhidrosis Problem 01/01/2020 12:00:00 AM [facility] ([facility]) 705.21 Hyperhidrosis Hyperhidrosis Problem 01/01/2020 12:00:00 AM [facility] ([facility]) 705.21 Hyperhidrosis Hyperhidrosis Problem 01/01/2020 12:00:00 AM [facility] ([facility]) 705.21 Hyperhidrosis Hyperhidrosis Problem 01/01/2020 12:00:00 AM [facility] ([facility]) 705.21 Hyperhidrosis Hyperhidrosis Problem 01/01/2020 12:00:00 AM EST [facility] ([facility]) Surgeries/Procedures Procedure Description Date Indications Data Source(s) HbA1c (Glycosolated) HbA1c (Glycosolated) 12/22/2020 12:00:00 AM ED T [facility] ([facility]) GLUCOSE GLUCOSE 12/22/2020 12:00:00 AM EDT [facility] ([facility]) COLLECTION VENOUS BLOOD VENIPUNCTURE BLOOD DRAW 12/22/2020 12:00: 00 AM EDT [facility] ([facility]) HbA1c (Glycosolated) (waived laboratory) HbA1c (Glycos olated) (waived laboratory) 10/09/2020 12:00:00 AM EDT [facility] ([facility]) GLUCOSE (waived laboratory) GLUCOSE (waived laboratory) 09/21 12:00:00 AM [facility] ([facility]) COLLECTION VENOUS BLOOD VENIPUNCTURE BLOOD DRAW 10/09/2020 12:00: 00 AM [facility] ([facility]) HbA1c (Glycosolated) HbA1c (Glycosolated) 10/09/2020 12:00:00 AM ED [facility] ([facility]) HbA1c (Glycosolated) (waived laboratory) HbA1c (Glycos olated) (waived laboratory) 07/14/2020 12:00:00 AM T [facility] ([facility]) COLLECTION VENOUS BLOOD VENIPUNCTURE BLOOD DRAW 07/14/2020 12:00: 00 AM [facility] ([facility]) HbA1c (Glycosolated) HbA1c (Glycosolated) 07/14/2020 12:00:00 AM ED [facility] ([facility]) ECG ROUTINE ECG W/LEAST 12 LDS W/I&R <td>POCT AMB EKG</td><td>Routine</td><td>02/12/2020 1:41 PM EST</td><td> Coronary angioplasty status</td><td> </td> 02/12/2020 06:41:00 PM EST Coronary angioplasty status [facility] Coronary angioplasty status Results ID Date Data Source [id number] 12/19/2020 07:06:00 AM EDT [facility] ([facility]) Name Value Range Interpretation Code Description Data Dayna rce(s) Supporting Document(s) Reported Physicians See Note Reported Physici brenden [facility] ([facility]) Note: Reported Physicians:Ordering: ATUL POP [id number]: Alexi VOulting: Rosa OLIVAmitting: Hien VO To: Hien VO To: SARA OLIVAOCojeff To: Malaika Valdez ID Date Data Source [id number] 12/19/2020 07:06:00 AM EDT [facility] ([facility]) Name Value Range Interpretation Code Description Data Dayna rce(s) Supporting Document(s) GLUCOSE, FASTING 137 MG/DL Above high normal GLUCOSE, FAS TING [facility] ([facility]) BLOOD UREA NITROGEN 12 MG/DL Normal BLOOD UREA NITRO GEN [facility] ([facility]) CREATININE FOR GFR 1.12 MG/DL Normal CREATININE FOR GF R [facility] ([facility]) GLOMERULAR FILTRATION RATE > 60.0 Normal GLOMERULA R FILTRATION RATE [facility] ([facility]) Note: Units are mL/min/1.73 m2 Chroni c Kidney Disease Staging per NKF: Stage I & II GFR >=60 Normal to Mildly Decreased Stage III GFR 30- 59 Moderately Decreased Stage IV GFR 15-29 Severely Decreased Stage V GFR <15 Very Little GFR Left ESRD GFR <15 on NURSE LIAISON SODIUM LEVEL 139 MEQ/L Normal SODIUM LEVEL [facility] ( [facility]) POTASSIUM SERUM 4.3 MEQ/L Normal POTASSIUM SERUM [facility]) CHLORIDE LEVEL 109 MEQ/L Above high normal CHLORIDE LEVEL [facility] ([facility]) CARBON DIOXIDE LEVEL 24 MEQ/L Normal CARBON DIOXIDE LEVEL [facility] ([facility]) Anion gap in Body fluid 6 MEQ/L Below low normal ANION GAP [facility]) CALCIUM LEVEL 8.3 MG/DL Below low normal [facility] AST/SGOT 17 U/L Normal AST/SGOT [facility] ([facility]) ALT/SGPT 18 U/L Normal ALT/SGPT [facility] ([facility]) Alkaline phosphatase [Enzymatic activity/volume] in Se rum, Plasma or Blood 37 U/L Below low normal ALKALINE PHOSPHATASE [facility] ( [facility]) BILIRUBIN,TOTAL 0.4 MG/DL Normal BILIRUBIN,TOTAL [facility] ([facility]) TOTAL PROTEIN 5.5 GM/DL Below low normal [facility]OTEIN [facility]) Albumin [Mass/volume] in Blood by Bromocresol purple ( BCP) dye binding method 2.9 GM/DL Below low normal ALBUMIN [facility] ([facility]) ALBUMIN/GLOBULIN RATIO 1.1 Normal ALBUMIN/GLOBU TOVA RATIO [facility] ([facility]) ID Date Data Source [id number] 12/19/2020 07:06:00 AM EDT [facility] ([facility]) Name Value Range Interpretation Code Description Data Dayna rce(s) Supporting Document(s) Reported Physicians See Note Reported Physici ans [facility] ([facility]) Note: Reported Physicians:Ordering: ATUL POP [id number], JOAN C.Attending: Alexi OVulting: Rosa OLIVAmitting: Hien VO To: Hien VO To: Mana OLIVA To: Malaika Valdez ID Date Data Source [id number] 12/19/2020 07:06:00 AM EDT [facility] ([facility]) Name Value Range Interpretation Code Description Data Dayna rce(s) Supporting Document(s) LIPASE 390 U/L Normal LIPASE [facility] ([facility]) ID Date Data Source [id number] 12/19/2020 07:06:00 AM EDT [facility] ([facility]) Name Value Range Interpretation Code Description Data Dayna rce(s) Supporting Document(s) Reported Physicians See Note Reported Physici ans [facility] ([facility]) Note: Reported Physicians:Ordering: ATUL POP [phone], MARGARITA C.Attending: Alexi VOulting: Rosa OLIVAmitting: Hien VO To: Hien VO To: Mana OLIVA To: Malaika Valdez ID Date Data Source [id number] 12/19/2020 07:06:00 AM EDT [facility] ([facility]) Name Value Range Interpretation Code Description Data Dayna rce(s) Supporting Document(s) WHITE BLOOD COUNT 4.4 3/uL Normal WHITE BLOOD COUNT [facility] ([facility]) RED BLOOD COUNT 2.95 6/uL Below low normal RED BLOOD COUN T [facility]) Hemoglobin [Mass/volume] in Mixed venous blood by Oximetry 9.1 g /dl Below low normal HEMOGLOBIN [facility]) Hematocrit [Pure volume fraction] of Blood by Automated count 25 .7 % Below low normal HEMATOCRIT [facility]) MEAN CORPUSCULAR VOLUME 87.1 fl Normal MEAN CORPUSC ULAR VOLUME [facility]) MEAN CORPUSCULAR HEMOGLOBIN 30.8 pg Normal MEAN COR PUSCULAR HEMOGLOBIN [facility]) MEAN CORPUSCULAR HGB CONC 35.4 g/dl Normal MEAN CORPU SCULAR HGB CONC [facility] ([facility]) RED CELL DISTRIBUTION WIDTH 13.7 % Normal RED CELL DISTRIBUTION WIDTH [facility]) PLATELET COUNT, AUTOMATED 148 3/uL Below low normal PLAT ELET COUNT, AUTOMATED [facility] ([facility]) NEUTROPHILS % 71.1 % Above high normal [facility]HILS % [facility] LYMPH % 17.8 % Below low normal LYMPH % [facility]) MONO % 8.1 % Above high normal MONO % [facility] ([facility]) EOS % 1.8 % Normal EOS % [facility] ([facility]) BASO % 0.5 % Normal BASO % [facility] ([facility]) IMMATURE GRANULOCYTE % 0.7 % Normal IMMATURE GRAN ULOCYTE % [facility] ([facility]) NUCLEATED RED BLOOD CELL % 0.0 % Normal NUCLEATED RED BLOOD CELL % [facility] ([facility]) NEUTROPHILS # 3.2 3/uL Normal NEUTROPHILS # [facility] ([facility]) LYMPH # 0.8 3/uL Below low normal LYMPH # [facility] ([facility]) MONO # 0.4 3/uL Normal MONO # [facility] ([facility]) EOS # 0.1 3/uL Normal EOS # [facility] ([facility]) BASO # 0.0 3/uL Normal BASO # [facility] ([facility]) ID Date Data Source [id number] 12/18/2020 11:25:00 AM EDT [facility] ([facility]) Name Value Range Interpretation Code Description Data Dayna rce(s) Supporting Document(s) Reported Physicians See Note Reported [facility] ([facility]) Note: Reported Physicians:Ordering: ATUL POP [id number], JOAN C.Attending: Aidee VOing: Rosa OLIVAmitting: Hien VO To: Hien VO To: Mana OLIVA To: Malaika Valdez ID Date Data Source [id number] 12/18/2020 11:25:00 AM EDT [facility] ([facility]) Name Value Range Interpretation Code Description Data Dayna rce(s) Supporting Document(s) BEDSIDE GLUCOSE 128 MG/DL Above high normal BEDSIDE GLUCO SE [facility] ([facility]) ID Date Data Source [id number] 12/18/2020 06:18:00 AM EDT [facility] ([facility]) Name Value Range Interpretation Code Description Data Dayna rce(s) Supporting Document(s) Reported Physicians See Note Reported [facility] ([facility]) Note: Reported Physicians:Ordering: ATUL [id number] RodrigesAttending: Alexi VOulting: Rosa OLIVAmitting: Hien VO To: JULIAN OVopy To: Mana OLIVA To: Malaika Valdez ID Date Data Source [id number] 12/18/2020 06:18:00 AM EDT [facility] ([facility]) Name Value Range Interpretation Code Description Data Dayna rce(s) Supporting Document(s) WHITE BLOOD COUNT 6.0 3/uL Normal WHITE BLOOD COUNT [facility] ([facility]) RED BLOOD COUNT 2.99 6/uL Below low normal RED BLOOD COUN T [facility] ([facility]) Hemoglobin [Mass/volume] in Mixed venous blood by Oximetry 9.2 g /dl Below low normal HEMOGLOBIN [facility] ([facility]) Hematocrit [Pure volume fraction] of Blood by Automated count 26 .4 % Below low normal HEMATOCRIT [facility]) MEAN CORPUSCULAR VOLUME 88.3 fl Normal MEAN CORPUSC ULAR VOLUME [facility] ([facility]) MEAN CORPUSCULAR HEMOGLOBIN 30.8 pg Normal MEAN COR PUSCULAR HEMOGLOBIN [facility] ([facility]) MEAN CORPUSCULAR HGB CONC 34.8 g/dl Normal MEAN CORPU SCULAR HGB CONC [facility] ([facility]) RED CELL DISTRIBUTION WIDTH 13.8 % Normal RED CELL DISTRIBUTION WIDTH [facility] ([facility]) PLATELET COUNT, AUTOMATED 144 3/uL Below low normal PLAT ELET COUNT, AUTOMATED [facility] ([facility]) NEUTROPHILS % 70.4 % Above high normal NEUTROPHILS % [facility] LYMPH % 18.1 % Below low normal LYMPH % [facility] ([facility]) MONO % 8.2 % Above high normal MONO % [facility] ([facility]) EOS % 2.0 % Normal EOS % [facility] ([facility]) BASO % 0.3 % Normal BASO % [facility] ([facility]) IMMATURE GRANULOCYTE % 1.0 % Normal IMMATURE GRAN ULOCYTE % [facility] ([facility]) NUCLEATED RED BLOOD CELL % 0.0 % Normal NUCLEATED RED BLOOD CELL % [facility] ([facility]) NEUTROPHILS # 4.2 3/uL Normal NEUTROPHILS # [facility] ([facility]) LYMPH # 1.1 3/uL Below low normal LYMPH # [facility] ([facility]) MONO # 0.5 3/uL Normal MONO # [facility] ([facility]) EOS # 0.1 3/uL Normal EOS # [facility] ([facility]) BASO # 0.0 3/uL Normal BASO # [facility] ([facility]) ID Date Data Source [id number] 12/18/2020 06:18:00 AM EDT [facility] ([facility]) Name Value Range Interpretation Code Description Data Dayna rce(s) Supporting Document(s) Reported Physicians See Note Reported Physici ans [facility] ([facility]) Note: Reported Physicians:Ordering: ATUL POP [id number], JOAN C.Attending: Alexi VOulting: Rosa OLIVAmitting: Hien VO To: Hien VO To: Mana OLIVA To: Malaika Valdez ID Date Data Source [id number] 12/18/2020 06:18:00 AM EDT [facility] ([facility]) Name Value Range Interpretation Code Description Data Dayna rce(s) Supporting Document(s) LIPASE 377 U/L Normal LIPASE [facility] ([facility]) ID Date Data Source [id number] 12/18/2020 06:18:00 AM EDT [facility] ([facility]) Name Value Range Interpretation Code Description Data Dayna rce(s) Supporting Document(s) Reported Physicians See Note Reported Physici ans [facility] ([facility]) Note: Reported Physicians:Ordering: ATUL POP [id number], JOAN C.Attending: Alexi VOulting: Rosa OLIVAmitting: Hien VO To: Hien VO To: Mana OLIVA To: Malaika Valdez ID Date Data Source [id number] 12/18/2020 06:18:00 AM EDT [facility] ([facility]) Name Value Range Interpretation Code Description Data Dayna rce(s) Supporting Document(s) GLUCOSE, FASTING 133 MG/DL Above high normal GLUCOSE, FAS TING [facility] ([facility]) BLOOD UREA NITROGEN 18 MG/DL Significant change down BLO OD UREA NITROGEN [facility] ([facility]) CREATININE FOR GFR 1.05 MG/DL Normal CREATININE FOR GF R [facility] ([facility]) GLOMERULAR FILTRATION RATE > 60.0 Normal GLOMERULA R FILTRATION RATE [facility] ([facility]) Note: Units are mL/min/1.73 m2 Chroni c Kidney Disease Staging per NKF: Stage I & II GFR >=60 Normal to Mildly Decreased Stage III GFR 30- 59 Moderately Decreased Stage IV GFR 15-29 Severely Decreased Stage V GFR <15 Very Little GFR Left ESRD GFR <15 on NURSE LIAISON SODIUM LEVEL 137 MEQ/L Normal SODIUM LEVEL [facility]) POTASSIUM SERUM 4.2 MEQ/L Normal POTASSIUM SERUM [facility]) CHLORIDE LEVEL 110 MEQ/L Above high normal CHLORIDE LEVEL [facility]) CARBON DIOXIDE LEVEL 25 MEQ/L Normal CARBON DIOXIDE LEVEL [facility]) Anion gap in Body fluid 2 MEQ/L Below low normal ANION GAP [facility]) CALCIUM LEVEL 7.9 MG/DL Below low normal CALCIUM LEVEL [facility] ([facility]) AST/SGOT 12 U/L Normal AST/SGOT [facility] ([facility]) ALT/SGPT 19 U/L Normal ALT/SGPT [facility] ([facility]) Alkaline phosphatase [Enzymatic activity/volume] in Se rum, Plasma or Blood 33 U/L Below low normal ALKALINE PHOSPHATASE [facility]) BILIRUBIN,TOTAL 0.5 MG/DL Significant change down BILIRUB IN,TOTAL [facility] ([facility]) TOTAL PROTEIN 5.2 GM/DL Below low normal TOTAL PROTEIN [facility] ([facility]) Albumin [Mass/volume] in Blood by Bromocresol purple ( BCP) dye binding method 2.9 GM/DL Below low normal ALBUMIN [facility] ([facility]) ALBUMIN/GLOBULIN RATIO 1.3 Normal ALBUMIN/GLOBU TOVA RATIO [facility]) ID Date Data Source [id number] 12/17/2020 08:30:00 PM EDT [facility] ([facility]) Name Value Range Interpretation Code Description Data Dayna rce(s) Supporting Document(s) Reported Physicians See Note Reported Physici ans [facility] ([facility]) Note: Reported Physicians:Ordering: ATUL POP [id number], JOAN C.Attending: Alexi VOulting: Rosa OLIVAmitting: Hien VO To: Hien VO To: Mana OLIVA To: Malaika Valdez ID Date Data Source [id number] 12/17/2020 08:30:00 PM EDT [facility] ([facility]) Name Value Range Interpretation Code Description Data Dayna rce(s) Supporting Document(s) BEDSIDE GLUCOSE 131 MG/DL Above high normal BEDSIDE GLUCO SE [facility] ([facility]) ID Date Data Source [id number] 12/17/2020 05:29:00 PM EDT [facility] ([facility]) Name Value Range Interpretation Code Description Data Dayna rce(s) Supporting Document(s) Reported Physicians See Note Reported Physici ans [facility] ([facility]) Note: Reported Physicians:Ordering: ATUL POP [id number]: Aidee VOing: Rosa OLIVAmitting: Hien VO To: Hien VO To: Mana OLIVA To: Malaika Valdez ID Date Data Source [id number] 12/17/2020 05:29:00 PM EDT [facility] ([facility]) Name Value Range Interpretation Code Description Data Dayna rce(s) Supporting Document(s) BEDSIDE GLUCOSE 116 MG/DL Above high normal BEDSIDE GLUCO SE [facility] ([facility]) ID Date Data Source [id number] 12/17/2020 01:47:00 PM EDT [facility] ([facility]) Name Value Range Interpretation Code Description Data Dayna rce(s) Supporting Document(s) Reported Physicians See Note Reported Physici ans [facility] ([facility]) Note: Reported Physicians:Ordering: ATUL POP [id number], MARGARITA LeAttending: Aidee VOing: Rosa OLIVAmitting: iHen VO To: Hien VO To: Mana OLIVA To: Malaika Valdez ID Date Data Source [id number] 12/17/2020 01:47:00 PM EDT [facility] ([facility]) Name Value Range Interpretation Code Description Data Dayna rce(s) Supporting Document(s) LACTIC ACID LEVEL, LACTATE 1.9 MMOL/L Normal LACTIC AC ID LEVEL, LACTATE [facility] ([facility]) ID Date Data Source [id number] 12/17/2020 11:59:00 AM EDT [facility] ([facility]) Name Value Range Interpretation Code Description Data Dayna rce(s) Supporting Document(s) Reported Physicians See Note Reported [facility] ([facility]) Note: Reported Physicians:Ordering: ATUL POP [id number]: Aidee VOing: Rosa OLIVAmitting: Hien VO To: Hien VO To: Mana OLIVA To: Malaika Valdez ID Date Data Source [id number] 12/17/2020 11:59:00 AM EDT [facility] ([facility]) Name Value Range Interpretation Code Description Data Dayna rce(s) Supporting Document(s) BEDSIDE GLUCOSE 109 MG/DL Normal BEDSIDE GLUCOSE [facility] ([facility]) ID Date Data Source [id number] 12/17/2020 11:09:00 AM EDT [facility] ([facility]) Name Value Range Interpretation Code Description Data Dayna rce(s) Supporting Document(s) Reported Physicians See Note Reported Physici ans [facility] ([facility]) Note: Reported Physicians:Ordering: MARGARITA BARNETT [id number]: Aidee VOing: Rosa OLIVAmitting: Hien VO To: Hien VO To: Mana OLIVA To: Malaika Valdez ID Date Data Source [id number] 12/17/2020 11:09:00 AM EDT [facility] ([facility]) Name Value Range Interpretation Code Description Data Dayna rce(s) Supporting Document(s) OCCULT BLOOD See Note Abnormal (applies to non-numeric r esults) OCCULT BLOOD [facility] ([facility]) Note: OCCULT BLOOD 1 POSI TIVE Notes [TIMP] See Note NOTES [facility] ([facility]) Note: SOURCE: STOOL ID Date Data Source [id number] 12/17/2020 10:00:00 AM EDT [facility] ([facility]) Name Value Range Interpretation Code Description Data Dayna rce(s) Supporting Document(s) Reported Physicians See Note Reported Physici ans [facility] ([facility]) Note: Reported Physicians:Ordering: Arlet BARNETTding: Alexi VOulting: Rosa OLIVAmitting: Hien VO To: Hien VO To: Mana OLIVA To: Malaika Valdez ID Date Data Source [id number] 12/17/2020 10:00:00 AM EDT [facility] ([facility]) Name Value Range Interpretation Code Description Data Dayna rce(s) Supporting Document(s) PACKED CELLS TRANSFUSED PRODUCT: PACKED CELLS COUNT: 2 PACKED CELLS [facility]) ID Date Data Source [id number] 12/17/2020 10:00:00 AM EDT [facility] ([facility]) Name Value Range Interpretation Code Description Data Dayna rce(s) Supporting Document(s) Reported Physicians See Note Reported [facility] [facility] [employer] ([facility]) Note: Reported Physicians:Ordering: ATUL POP [id number]: Alexi VOulting: Rosa OLIVAmitting: Hien VO To: Hien VO To: Mana OLIVA To: Malaika Valdez ID Date Data Source [id number] 12/17/2020 10:00:00 AM EDT [facility] ([facility]) Name Value Range Interpretation Code Description Data Dayna rce(s) Supporting Document(s) BLOOD TYPE O POSITIVE Normal BLOOD TYPE [facility] ([facility]) AB SCREEN (INDIRECT CHANDRAKANT)VIS NEGATIVE Normal AB SC REEN (INDIRECT CHANDRAKANT)VIS [facility] ([facility]) ID Date Data Source [id number] 12/17/2020 08:36:00 AM EDT [facility] ([facility]) Name Value Range Interpretation Code Description Data Dayna rce(s) Supporting Document(s) Reported Physicians See Note Reported Physic ans [facility] ([facility]) Note: Reported Physicians:Ordering: ATUL POP [id number], JOAN C.Attending: Aidee VOing: Vero OLIVAing: Hien VO To: Hien VO To: Malaika Valdez ID Date Data Source [id number] 12/17/2020 08:36:00 AM EDT [facility] ([facility]) Name Value Range Interpretation Code Description Data Dayna rce(s) Supporting Document(s) Ferritin [Interpretation] in Blood 418 NG/ML Above high n ormal FERRITIN [facility] ([facility]) ID Date Data Source [id number] 12/17/2020 08:36:00 AM EDT [facility] ([facility]) Name Value Range Interpretation Code Description Data Dayna rce(s) Supporting Document(s) Reported Physicians See Note Reported Physic ans [facility] ([facility]) Note: Reported Physicians:Ordering: ATUL POP [id number], JOAN C.Attending: Aidee VOing: Rosa OLIVAmitting: Hien VO To: Hien VO To: Malaika Valdez ID Date Data Source [id number] 12/17/2020 08:36:00 AM EDT [facility] ([facility]) Name Value Range Interpretation Code Description Data Dayna rce(s) Supporting Document(s) IRON (FE) 70 UG/DL Normal IRON (FE) [facility] ([facility]) TOTAL IRON BINDING CAPACITY 225 UG/DL Below low nor mal TOTAL IRON BINDING CAPACITY [facility] ([facility]) PERCENT SATURATION 31.1 % Normal PERCENT SATURATIO N [facility] ([facility]) ID Date Data Source [id number] 12/17/2020 08:36:00 AM EDT [facility] ([facility]) Name Value Range Interpretation Code Description Data Dayna rce(s) Supporting Document(s) Reported Physicians See Note Reported Physici ans [facility] ([facility]) Note: Reported Physicians:Ordering: MARGARITA AVILAAttending: Aidee VOing: Rosa OLIVAmitting: Hien VO To: Hien VO To: Malaika Valdez ID Date Data Source [id number] 12/17/2020 08:36:00 AM EDT [facility] ([facility]) Name Value Range Interpretation Code Description Data Dayna rce(s) Supporting Document(s) SLIDE REVIEW Report Normal SLIDE REVIEW [facility] ( [facility]) Note: Slide and/or specimen referred to Pathologist for review. Results of the review are located in the EMR Pathology module under Peripheral Smear when completed. SOURCE PERIPHERAL SMEAR Normal SOURCE [facility] ([facility]) REASON FOR REVIEW RBC MORPHOLOGY Normal REASON FOR REV IEW [facility] ([facility]) Notes [TIMP] See Note NOTES [facility] ([facility]) Note: Reason for Review: RBC MORPHOLOGY ID Date Data Source [id number] 12/17/2020 08:36:00 AM EDT [facility] ([facility]) Name Value Range Interpretation Code Description Data Dayna rce(s) Supporting Document(s) Reported Physicians See Note Reported Physic ans [facility] ([facility]) Note: Reported Physicians:Ordering: ATUL POP [id number] RodrigesAttending: Aidee VOing: Rosa OLIVAmitting: Hien VO To: Hien VO To: Malaika Valdez ID Date Data Source [id number] 12/17/2020 08:36:00 AM EDT [facility] ([facility]) Name Value Range Interpretation Code Description Data Dayna rce(s) Supporting Document(s) Hemoglobin [Mass/volume] in Mixed venous blood by Oximetry 7.7 g /dl Below low normal HEMOGLOBIN [facility] ([facility]) Hematocrit [Pure volume fraction] of Blood by Automated count 22 .0 % Below low normal HEMATOCRIT [facility]) Notes [TIMP] See Note NOTES [facility] ([facility]) Note: Reason for Review: RBC MORPHOLOGY ID Date Data Source [id number] 12/17/2020 08:36:00 AM EDT [facility] ([facility]) Name Value Range Interpretation Code Description Data Dayna rce(s) Supporting Document(s) Reported Physicians See Note Reported Physici ans [facility] ([facility]) Note: Reported Physicians:Ordering: ATUL [id number] RodrigesAttending: Alexi VOulting: SARA OLIVAOAdmitting: Hien VO To: Hien VO To: Malaika Valdez ID Date Data Source [id number] 12/17/2020 08:36:00 AM EDT [facility] ([facility]) Name Value Range Interpretation Code Description Data Dayna rce(s) Supporting Document(s) LACTIC ACID SEPSIS PROTOCOL 3.0 MMOL/L Above upper p anic limits LACTIC ACID SEPSIS PROTOCOL [facility] ([facility]) Notes [TIMP] See Note NOTES [facility] ([facility]) Note: Y/N query for Sepsis Lactate Rule: Y ID Date Data Source [id number] 12/17/2020 06:08:00 AM EDT [facility] ([facility]) Name Value Range Interpretation Code Description Data Dayna rce(s) Supporting Document(s) Reported Physicians See Note Reported Physici ans [facility] ([facility]) Note: Reported Physicians:Ordering: ATUL POP [id number] RodrigesAttending: Reginaldo VOitting: Hien VO To: Hien VO To: Malaika Valdez ID Date Data Source [id number] 12/17/2020 06:08:00 AM EDT [facility] ([facility]) Name Value Range Interpretation Code Description Data Dayna rce(s) Supporting Document(s) LIPASE 329 U/L Normal LIPASE [facility] ([facility]) ID Date Data Source [id number] 12/17/2020 06:08:00 AM EDT [facility] ([facility]) Name Value Range Interpretation Code Description Data Dayna rce(s) Supporting Document(s) Reported Physicians See Note Reported Physici ans [facility] ([facility]) Note: Reported Physicians:Ordering: ATUL POP [id number]: Reginaldo VOitting: Hien VO To: Hien VO To: Malaika Valdez ID Date Data Source [id number] 12/17/2020 06:08:00 AM EDT [facility] ([facility]) Name Value Range Interpretation Code Description Data Dayna rce(s) Supporting Document(s) GLUCOSE, FASTING 141 MG/DL Above high normal GLUCOSE, FAS TING [facility] ([facility]) BLOOD UREA NITROGEN 39 MG/DL Above high normal BLOOD URE A NITROGEN [facility] ([facility]) CREATININE FOR GFR 0.98 MG/DL Normal CREATININE FOR GF R [facility] ([facility]) GLOMERULAR FILTRATION RATE > 60.0 Normal GLOMERULA R FILTRATION RATE [facility] ([facility]) Note: Units are mL/min/1.73 m2 Chroni c Kidney Disease Staging per NKF: Stage I & II GFR >=60 Normal to Mildly Decreased Stage III GFR 30- 59 Moderately Decreased Stage IV GFR 15-29 Severely Decreased Stage V GFR <15 Very Little GFR Left ESRD GFR <15 on NURSE LIAISON SODIUM LEVEL 140 MEQ/L Significant change down SODIUM LEV EL [facility] ([facility]) POTASSIUM SERUM 4.4 MEQ/L Normal POTASSIUM SERUM [facility]) CARBON DIOXIDE LEVEL 22 MEQ/L Normal CARBON DIOXIDE LEVEL [facility] ([facility]) CHLORIDE LEVEL 111 MEQ/L Above high normal CHLORIDE LEVEL [facility] ([facility]) Anion gap in Body fluid 7 MEQ/L Below low normal ANION GAP [facility]) CALCIUM LEVEL 7.7 MG/DL Below low normal CALCIUM LEVEL [facility] ([facility]) AST/SGOT 10 U/L Normal AST/SGOT [facility] ([facility]) ALT/SGPT 18 U/L Normal ALT/SGPT [facility] ([facility]) Alkaline phosphatase [Enzymatic activity/volume] in Se rum, Plasma or Blood 29 U/L Below low normal ALKALINE PHOSPHATASE [facility]) BILIRUBIN,TOTAL 0.3 MG/DL Normal BILIRUBIN,TOTAL [facility]) TOTAL PROTEIN 4.9 GM/DL Below low normal TOTAL PROTEIN [facility] ([facility]) Albumin [Mass/volume] in Blood by Bromocresol purple ( BCP) dye binding method 2.7 GM/DL Below low normal ALBUMIN [facility]) ALBUMIN/GLOBULIN RATIO 1.2 Normal ALBUMIN/GLOBU TOVA RATIO [facility]) ID Date Data Source [id number] 12/17/2020 06:08:00 AM EDT [facility] ([facility]) Name Value Range Interpretation Code Description Data Dayna rce(s) Supporting Document(s) Reported Physicians See Note Reported Physici ans [facility]) Note: Reported Physicians:Ordering: ATUL POP [id number]: Reginaldo VOitting: Hien VO To: Hien VO To: Malaika Valdez ID Date Data Source [id number] 12/17/2020 06:08:00 AM EDT [facility] ([facility]) Name Value Range Interpretation Code Description Data Dayna rce(s) Supporting Document(s) WHITE BLOOD COUNT 6.0 3/uL Normal WHITE BLOOD COUNT [facility]) RED BLOOD COUNT 2.65 6/uL Below low normal RED BLOOD COUN T [facility] ([facility]) Hemoglobin [Mass/volume] in Mixed venous blood by Oximetry 7.8 g/dl HEMOGLOBIN [facility] ([facility]) Hematocrit [Pure volume fraction] of Blood by Automated count 23 .0 % Below low normal HEMATOCRIT [facility]) MEAN CORPUSCULAR VOLUME 86.8 fl Normal MEAN CORPUSC ULAR VOLUME [facility] ([facility]) MEAN CORPUSCULAR HEMOGLOBIN 29.4 pg Normal MEAN COR PUSCULAR HEMOGLOBIN [facility] ([facility]) MEAN CORPUSCULAR HGB CONC 33.9 g/dl Normal MEAN CORPU SCULAR HGB CONC [facility] ([facility]) RED CELL DISTRIBUTION WIDTH 13.8 % Normal RED CELL DISTRIBUTION WIDTH [facility] ([facility]) PLATELET COUNT, AUTOMATED 177 3/uL Normal PLATELET C OUNT, AUTOMATED [facility] ([facility] [facility]) NEUTROPHILS % 71.0 % Above high normal NEUTROPHILS % [facility]) LYMPH % 19.5 % Below low normal LYMPH % [facility] ([facility]) MONO % 7.4 % Normal MONO % [facility] ([facility]) EOS % 1.0 % Normal EOS % [facility] ([facility]) BASO % 0.3 % Normal BASO % [facility] ([facility]) IMMATURE GRANULOCYTE % 0.8 % Normal IMMATURE GRAN ULOCYTE % [facility] ([facility]) NUCLEATED RED BLOOD CELL % 0.0 % Normal NUCLEATED RED BLOOD CELL % [facility] ([facility]) NEUTROPHILS # 4.2 3/uL Normal NEUTROPHILS # [facility] ([facility]) LYMPH # 1.2 3/uL Below low normal LYMPH # [facility] ([facility]) MONO # 0.4 3/uL Normal MONO # [facility] ([facility]) EOS # 0.1 3/uL Normal EOS # [facility] ([facility]) BASO # 0.0 3/uL Normal BASO # [facility] ([facility]) ID Date Data Source [id number] 12/16/2020 08:25:00 PM EDT [facility] ([facility]) Name Value Range Interpretation Code Description Data Dayna rce(s) Supporting Document(s) Reported Physicians See Note Reported Physic ans [facility] ([facility]) Note: Reported Physicians:Ordering: ATUL POP [id number], JOAN C.Attending: Reginaldo VOitting: Hien VO To: Hien VO To: Malaika Valdez ID Date Data Source [id number] 12/16/2020 08:25:00 PM EDT [facility] ([facility]) Name Value Range Interpretation Code Description Data Dayna rce(s) Supporting Document(s) BEDSIDE GLUCOSE 169 MG/DL Above high normal BEDSIDE GLUCO SE [facility] ([facility]) Note: Nurse Notified ID Date Data Source [id number] 12/16/2020 06:35:00 PM EDT [facility] ([facility]) Name Value Range Interpretation Code Description Data Dayna rce(s) Supporting Document(s) Reported Physicians See Note Reported Physic ans [facility] ([facility]) Note: Reported Physicians:Ordering: ATUL POP [phone], JOAN C.Attending: Reginaldo VOitting: Hien VO To: Hien VO To: Malaika Valdez ID Date Data Source [id number] 12/16/2020 06:35:00 PM EDT [facility] ([facility]) Name Value Range Interpretation Code Description Data Dayna rce(s) Supporting Document(s) BEDSIDE GLUCOSE 158 MG/DL Above high normal BEDSIDE GLUCO SE [facility] ([facility]) ID Date Data Source [id number] 12/16/2020 05:04:00 PM EDT [facility] ([facility]) Name Value Range Interpretation Code Description Data Dayna rce(s) Supporting Document(s) Reported Physicians See Note Reported [facility] ([facility]) Note: Reported Physicians:Ordering: ATUL POP [id number], JOAN C.Attending: Reginaldo VOitting: Hien VO To: Hien VO To: Malaika Valdez ID Date Data Source [id number] 12/16/2020 05:04:00 PM EDT [facility] ([facility]) Name Value Range Interpretation Code Description Data Dayna rce(s) Supporting Document(s) Myoglobin [Presence] in 24 hour Urine 103 NG/ML Normal MYOGLOBIN [facility]) ID Date Data Source [id number] 12/16/2020 05:04:00 PM EDT [facility] ([facility]) Name Value Range Interpretation Code Description Data Dayna rce(s) Supporting Document(s) Reported Physicians See Note Reported Physici ans [facility] ([facility]) Note: Reported Physicians:Ordering: ATUL POP [id number]: Reginaldo VOitting: Hien VO To: Hien VO To: Malaika Valdez ID Date Data Source [id number] 12/16/2020 05:04:00 PM EDT [facility] ([facility]) Name Value Range Interpretation Code Description Data Dayna rce(s) Supporting Document(s) CPK CREATINE PHOSPHOKINASE 63 U/L Normal CPK CREAT INE PHOSPHOKINASE [facility]) CK-MB VALUE MASS 4.1 NG/ML Above high normal CK-MB VALUE MASS [facility]) MB/CK RELATIVE INDEX 6.51 Above high normal MB/CK RE LATIVE INDEX [facility]) Note: DIAGNOSIS CRITERIA MMB ng/ml Relative Index (RI) NON-AMI < or = 5 N/A MCQUEEN ZONE > 5 < or = 4 AMI > 5 > 4 TROPONIN I 0.28 NG/ML Above high normal TROPONIN I [facility]) Note: Troponin I Reference Interval for [employer] LOCI: 99th Percentile= 0.00-0.045 ng/ml Risk Stratification: <= 0.10 ng/ml Decreased Risk for Adverse Clinical Events. 0.10-1.50 ng/ml Increased Risk for Adverse Clinical Events. Evaluation of additional criterion and/or repeat testing in 2-6 hours is suggested to rule out myocardial damage. >= 1.50 ng/ml Indicative of Myocardial Injury. ID Date Data Source [id number] 12/16/2020 05:04:00 PM EDT [facility] ([facility]) Name Value Range Interpretation Code Description Data Dayna rce(s) Supporting Document(s) Reported Physicians See Note Reported [facility] ([facility]) Note: Reported Physicians:Ordering: ATUL POP [id number], JOAN C.Attending: Reginaldo VOitting: Hien VO To: Hien VO To: Malaika Valdez ID Date Data Source [id number] 12/16/2020 05:04:00 PM EDT [facility] ([facility]) Name Value Range Interpretation Code Description Data Dayna rce(s) Supporting Document(s) NT-PRO BNP 518 PG/ML Above high normal NT-PRO BNP [facility]) ID Date Data Source [id number] 12/16/2020 05:04:00 PM EDT [facility] ([facility]) Name Value Range Interpretation Code Description Data Dayna rce(s) Supporting Document(s) Reported Physicians See Note Reported [facility]) Note: Reported Physicians:Ordering: ATUL POP [id number], JOAN C.Attending: Reginaldo VOitting: Hien VO To: Hien VO To: Malaika Valdez ID Date Data Source [id number] 12/16/2020 05:04:00 PM EDT [facility] ([facility]) Name Value Range Interpretation Code Description Data Dayna rce(s) Supporting Document(s) Procalcitonin [Mass/volume] in Serum or Plasma by Immunoassay 0.13 Normal PROCALCITONIN [facility]) Note: SEPSIS INTERPRETATION OF RESULTS <0.5 ng/ml Low risk for progression to severe sepsis and or septic shock. 0.50-2.00 ng/ml Sepsis should be considered. >2.00 ng/ml High risk for progression to severe sepsis and or septic shock. LOWER RESPIRATORY TRACT INFECTION REFERENCE INTERVAL <0.1 ng/ml Antibiotics strongly discouraged. 0.1-0.25 ng/ml Antibiotics are discouraged. 0.26-0.5 ng/ml Antibiotics are encouraged. >0.5 ng/ml Antibiotics are strongly encouraged. ID Date Data Source [id number] 12/16/2020 05:04:00 PM EDT [facility] ([facility]) Name Value Range Interpretation Code Description Data Dayna rce(s) Supporting Document(s) Reported Physicians See Note Reported Physici ans [facility] ([facility]) Note: Reported Physicians:Ordering: ATUL POP [phone], JOAN C.Attending: Reginaldo VOitting: Hien VO To: Hien VO To: Malaika Valdez ID Date Data Source [id number] 12/16/2020 05:04:00 PM EDT [facility] ([facility]) Name Value Range Interpretation Code Description Data Dayna rce(s) Supporting Document(s) C REACTIVE PROTEIN QUANTITATIV 3.51 MG/DL Above high normal C REACTIVE PROTEIN QUANTITATIV [facility] ([facility]) ID Date Data Source [id number] 12/16/2020 05:04:00 PM EDT [facility] ([facility]) Name Value Range Interpretation Code Description Data Dayna rce(s) Supporting Document(s) Reported Physicians See Note Reported [facility] ([facility]) Note: Reported Physicians:Ordering: ATUL POP [phone], JOAN C.Attending: Reginaldo VOitting: Hien VO To: Hien VO To: Malaika Valdez ID Date Data Source [id number] 12/16/2020 05:04:00 PM EDT [facility] ([facility]) Name Value Range Interpretation Code Description Data Dayna rce(s) Supporting Document(s) LACTIC ACID SEPSIS PROTOCOL 1.6 MMOL/L Normal LACTIC A ROWENA SEPSIS PROTOCOL [facility] ([facility]) Notes [TIMP] See Note NOTES [facility] ([facility]) Note: Y/N query for Sepsis Lactate Rule: Y ID Date Data Source [id number] 12/16/2020 05:04:00 PM EDT [facility] ([facility]) Name Value Range Interpretation Code Description Data Dayna rce(s) Supporting Document(s) Reported Physicians See Note Reported Physici ans [facility] ([facility]) Note: Reported Physicians:Ordering: ATUL POP [id number]: Reginaldo VOitting: Hien VO To: Hien VO To: Malaika Valdez ID Date Data Source [id number] 12/16/2020 05:04:00 PM EDT [facility] ([facility]) Name Value Range Interpretation Code Description Data Dayna rce(s) Supporting Document(s) Erythrocyte sedimentation rate by [place] method 45 mm/hr Above high normal ERYTHROCYTE SEDIMENTATION RATE [facility]) ID Date Data Source [id number] 12/16/2020 02:41:00 PM EDT [facility] ([facility]) Name Value Range Interpretation Code Description Data Dayna rce(s) Supporting Document(s) Reported Physicians See Note Reported [facility] ([facility]) Note: Reported Physicians:Ordering: Harman Baum [phone] MDAttending: Reginaldo VOitting: Hien VO To: Hien VO To: Alfredito Sheldon To: Malaika Valdez ID Date Data Source [id number] 12/16/2020 02:41:00 PM EDT [facility] ([facility]) Name Value Range Interpretation Code Description Data Dayna rce(s) Supporting Document(s) LACTIC ACID LEVEL, LACTATE 1.7 MMOL/L Normal LACTIC AC ID LEVEL, LACTATE [facility] ([facility]) ID Date Data Source [id number] 12/16/2020 11:30:00 AM EDT [facility] ([facility]) Name Value Range Interpretation Code Description Data Dayna rce(s) Supporting Document(s) Reported Physicians See Note Reported [facility] ([facility]) Note: Reported Physicians:Ordering: Harman Baum [id number] MDAttending: Alfredito Greenwood To: Alfredito Greenwood To: Malaika Valdez ID Date Data Source [id number] 12/16/2020 11:30:00 AM EDT [facility] ([facility] Name Value Range Interpretation Code Description Data Dayna rce(s) Supporting Document(s) CPK CREATINE PHOSPHOKINASE 61 U/L Normal CPK CREAT INE PHOSPHOKINASE [facility] ([facility]) CK-MB VALUE MASS 3.1 NG/ML Normal CK-[facility] VALUE MASS [facility]) MB/CK RELATIVE INDEX 5.08 Above high normal MB/CK RE LATIVE INDEX [facility] ([facility]) Note: DIAGNOSIS CRITERIA MMB ng/ml Relative Index (RI) NON-AMI < or = 5 N/A MCQUEEN ZONE > 5 < or = 4 AMI > 5 > 4 TROPONIN I 0.33 NG/ML TROPONIN I [facility]) Note: Troponin I Reference Interval for [employer] [place] LOCI: 99th Percentile= 0.00-0.045 ng/ml Risk Stratification: <= 0.10 ng/ml Decreased Risk for Adverse Clinical Events. 0.10-1.50 ng/ml Increased Risk for Adverse Clinical Events. Evaluation of additional criterion and/or repeat testing in 2-6 hours is suggested to rule out myocardial damage. >= 1.50 ng/ml Indicative of Myocardial Injury. ID Date Data Source [id number] 12/16/2020 09:45:00 AM EDT [facility] ([facility]) Name Value Range Interpretation Code Description Data Dayna rce(s) Supporting Document(s) Reported Physicians See Note Reported Physici ans [facility] ([facility]) Note: Reported Physicians:Ordering: Volodymyr Matos [id number]: Alexi VOulting: Rosa OLIVAmitting: Hien VO To: Hien VO To: Alfredito Greenwood To: Malaika Valdez ID Date Data Source [id number] 12/16/2020 09:45:00 AM EDT [facility] ([facility]) Name Value Range Interpretation Code Description Data Dayna rce(s) Supporting Document(s) GATS CULTURE (NEG STREP SCR) See Note Normal GATS CU LTURE (NEG STREP SCR) [facility] ([facility]) Note: FULL REPORT IN LAB NOTES (eCW and [facility]).NEGATIVE FOR STREP PYOGENES (GROUP A) Notes [TIMP] See Note NOTES [facility] ([facility]) Note: Is patient on Antibiotics? N SOUR CE: THROAT ID Date Data Source [id number] 12/16/2020 08:36:00 AM EDT [facility] ([facility]) Name Value Range Interpretation Code Description Data Dayna rce(s) Supporting Document(s) Reported Physicians See Note Reported Physici ans [facility] ([facility]) Note: Reported Physicians:Ordering: Harman Baum [id number], Volodymyr MDAttending: Alfredito Greenwood To: Alfredito Greenwood To: Malaika Valdez ID Date Data Source [id number] 12/16/2020 08:36:00 AM EDT [facility] ([facility]) Name Value Range Interpretation Code Description Data Dayna rce(s) Supporting Document(s) NELDA STREP A NEGATIVE Normal NELDA STREP A [facility] ([facility]) ID Date Data Source [id number] 12/16/2020 08:33:00 AM EDT [facility] ([facility]) Name Value Range Interpretation Code Description Data Dayna rce(s) Supporting Document(s) Reported Physicians See Note Reported Physici ans [facility] ([facility]) Note: Reported Physicians:Ordering: Harman Baum [id number], Maja MDAttending: Maj KrystynaaCojeff To: Alfredito Greenwood To: Malaika Valdez ID Date Data Source [id number] 12/16/2020 08:33:00 AM EDT [facility] ([facility]) Name Value Range Interpretation Code Description Data Dayna rce(s) Supporting Document(s) BEDSIDE GLUCOSE 196 MG/DL Above high normal BEDSIDE GLUCO SE [facility] ([facility]) ID Date Data Source [id number] 12/16/2020 08:18:00 AM EDT [facility] Name Value Range Interpretation Code Description Data Dayna rce(s) Supporting Document(s) SARS-CoV-2 (COVID 19) NEGATIVE - SARS-CoV-2 (COVID19) [facility] This lab was ordered by [facility] a nd reported by [facility]. ID Date Data Source [id number] 12/16/2020 08:18:00 AM EDT [facility] ([facility]) Name Value Range Interpretation Code Description Data Dayna rce(s) Supporting Document(s) Reported Physicians See Note Reported Physici ans [facility] ([facility]) Note: Reported Physicians:Ordering: Harman Baum [id number] MDAttending: Maj KrystynaaCojeff To: Maj KrystynaaCojeff To: Malaika Valdez ID Date Data Source [id number] 12/16/2020 08:18:00 AM EDT [facility] ([facility]) Name Value Range Interpretation Code Description Data Dayna rce(s) Supporting Document(s) LACTIC ACID SEPSIS PROTOCOL 2.5 MMOL/L Above upper p anic limits LACTIC ACID SEPSIS PROTOCOL [facility] ([facility]) Notes [TIMP] See Note NOTES [facility] ([facility]) Note: Y/N query for Sepsis Lactate Rule: Y ID Date Data Source [id number] 12/16/2020 08:18:00 AM EDT [facility] ([facility]) Name Value Range Interpretation Code Description Data Dayna rce(s) Supporting Document(s) Reported Physicians See Note Reported Physici ans [facility] ([facility]) Note: Reported Physicians:Ordering: Voloydmyr Matos [phone]: Nayeli-Maj KalpeshaCojeff To: LundborTalia MajaCopy To: Malaika Valdez ID Date Data Source [id number] 12/16/2020 08:18:00 AM EDT [facility] ([facility]) Name Value Range Interpretation Code Description Data Dayna rce(s) Supporting Document(s) RESPIRATORY PANEL See Note RESPIRATORY PANEL [facility] ([facility]) Note: This respiratory PCR panel detects Influenza A H1, H3 [id number] H1 viruses, Influenza B virus, Respiratory Syncytial Virus,Human metapneumovirus, Parainfluenza virus 1, 2, 3 and 4, Adenovirus,Rhinovirus/Enterovirus, Coronavirus HKU1, NL63, OC43, 229E [id number] (COVID 19), Bordetella pertussis, Bordetella parapertussis,Mycoplasma pneumoniae and Chlamydia pneumoniae.NEGATIVE by MULTIPLEXED NUCLEIC ACID [id number] (COVID 19) NEGATIVE - SARS-CoV-2 (COVID19) Notes [TIMP] See Note NOTES [facility] ([facility]) Note: Source: [id number] ID Date Data Source [id number] 12/16/2020 08:17:00 AM EDT [facility] ([facility]) Name Value Range Interpretation Code Description Data Dayna rce(s) Supporting Document(s) Reported Physicians See Note Reported Physici ans [facility] ([facility]) Note: Reported Physicians:Ordering: Harman Baum [id number]: Alfredito Greenwood To: Alfredito Greenwood To: Malaika Valdez ID Date Data Source [id number] 12/16/2020 08:17:00 AM EDT [facility] ([facility]) Name Value Range Interpretation Code Description Data Dayna rce(s) Supporting Document(s) CPK CREATINE PHOSPHOKINASE 54 U/L Normal CPK CREAT INE PHOSPHOKINASE [facility]) CK-MB VALUE MASS 2.0 NG/ML Normal [facility] MB/CK RELATIVE INDEX 3.70 Normal MB/CK RELATIVE INDEX [facility] ([facility]) Note: DIAGNOSIS CRITERIA MMB ng/ml Relative Index (RI) NON-AMI < or = 5 N/A MCQUEEN ZONE > 5 < or = 4 AMI > 5 > 4 TROPONIN I 0.20 NG/ML Above high normal [facility] Note: Troponin I Reference Interval for [employer] LOCI: 99th Percentile= 0.00-0.045 ng/ml Risk Stratification: <= 0.10 ng/ml Decreased Risk for Adverse Clinical Events. 0.10-1.50 ng/ml Increased Risk for Adverse Clinical Events. Evaluation of additional criterion and/or repeat testing in 2-6 hours is suggested to rule out myocardial damage. >= 1.50 ng/ml Indicative of Myocardial Injury. ID Date Data Source [id number] 12/16/2020 08:17:00 AM [facility] ([facility]) Name Value Range Interpretation Code Description Data Dayna rce(s) Supporting Document(s) Reported Physicians See Note Reported Physici ans [facility] ([facility]) Note: Reported Physicians:Ordering: Harman Baum [phone]: Alfredito Greenwood To: Alfredito Greenwood To: Malaika Valdez ID Date Data Source [id number] 12/16/2020 08:17:00 AM EDT [facility]) Name Value Range Interpretation Code Description Data Dayna rce(s) Supporting Document(s) GLUCOSE, FASTING 196 MG/DL Above high normal GLUCOSE, FAS TING [facility] ([facility]) BLOOD UREA NITROGEN 49 MG/DL Above high normal BLOOD URE A NITROGEN [facility] ([facility]) CREATININE FOR GFR 1.12 MG/DL Normal CREATININE FOR GF R [facility] ([facility]) GLOMERULAR FILTRATION RATE > 60.0 Normal GLOMERULA R FILTRATION RATE [facility] ([facility]) Note: Units are mL/min/1.73 m2 Chroni c Kidney Disease Staging per NKF: Stage I & II GFR >=60 Normal to Mildly Decreased Stage III GFR 30- 59 Moderately Decreased Stage IV GFR 15-29 Severely Decreased Stage V GFR <15 Very Little GFR Left ESRD GFR <15 on NURSE LIAISON SODIUM LEVEL 133 MEQ/L Below low normal SODIUM LEVEL [facility] ([facility]) POTASSIUM SERUM 4.6 MEQ/L Normal POTASSIUM SERUM [facility]) CHLORIDE LEVEL 104 MEQ/L Normal CHLORIDE LEVEL [facility]) CARBON DIOXIDE LEVEL 20 MEQ/L Below low normal CARBON DI OXIDE LEVEL [facility]) Anion gap in Body fluid 9 MEQ/L Normal [facility]ION GAP [facility]) CALCIUM LEVEL 8.2 MG/DL Below low normal CALCIUM LEVEL GR [facility] ([facility]) ID Date Data Source [id number] 12/16/2020 08:17:00 AM EDT [facility] ([facility]) Name Value Range Interpretation Code Description Data Dayna rce(s) Supporting Document(s) Reported Physicians See Note Reported Physic ans [facility] ([facility]) Note: Reported Physicians:Ordering: Harman Baum [id number], Maja MDAttending: Alfredito Greenwood To: Alfredito Greenwood To: Malaika Valdez ID Date Data Source [id number] 12/16/2020 08:17:00 AM EDT [facility] ([facility]) Name Value Range Interpretation Code Description Data Dayna rce(s) Supporting Document(s) NT-PRO BNP 133 PG/ML Normal NT-PRO BNP [facility] ([facility]) ID Date Data Source [id number] 12/16/2020 08:17:00 AM EDT [facility] ([facility]) Name Value Range Interpretation Code Description Data Dayna rce(s) Supporting Document(s) Reported Physicians See Note Reported [facility] ([facility]) Note: Reported Physicians:Ordering: Harman Shruthiray [id number], Maja MDAttending: Maj KrystynaaCopy To: Maj KrystynaaCojeff To: Malaika Valdez ID Date Data Source [id number] 12/16/2020 08:17:00 AM EDT [facility] ([facility]) Name Value Range Interpretation Code Description Data Dayna rce(s) Supporting Document(s) AST/SGOT 8 U/L Normal AST/SGOT [facility] ([facility]) ALT/SGPT 21 U/L Normal ALT/SGPT [facility] ([facility]) BILIRUBIN,TOTAL 0.3 MG/DL Normal BILIRUBIN,TOTAL [facility] ([facility]) Alkaline phosphatase [Enzymatic activity/volume] in Se rum, Plasma or Blood 41 U/L Below low normal ALKALINE PHOSPHATASE [facility]) BILIRUBIN,DIRECT 0.1 MG/DL Normal BILIRUBIN,DIRECT GR [facility] ([facility]) TOTAL PROTEIN 6.0 GM/DL Below low normal TOTAL PROTEIN [facility] ([facility]) Albumin [Mass/volume] in Blood by Bromocresol purple ( BCP) dye binding method 3.1 GM/DL Below low normal ALBUMIN [facility]) ALBUMIN/GLOBULIN RATIO 1.1 Normal ALBUMIN/GLOBU TOVA RATIO [facility]) ID Date Data Source [id number] 12/16/2020 08:17:00 AM EDT [facility] ([facility]) Name Value Range Interpretation Code Description Data Dayna rce(s) Supporting Document(s) Reported Physicians See Note Reported Physic ans [facility] ([facility]) Note: Reported Physicians:Ordering: Harman Baum [id number], Maja MDAttending: Alfredito Greenwood To: Alfredito Greenwood To: Malaika Valdez ID Date Data Source [id number] 12/16/2020 08:17:00 AM EDT [facility] ([facility]) Name Value Range Interpretation Code Description Data Dayna rce(s) Supporting Document(s) THYROXINE (T4) 8.6 UG/DL Normal THYROXINE (T4) [facility]) ID Date Data Source [id number] 12/16/2020 08:17:00 AM EDT [facility] ([facility]) Name Value Range Interpretation Code Description Data Dayna rce(s) Supporting Document(s) Reported Physicians See Note Reported [facility] ([facility]) Note: Reported Physicians:Ordering: Harman Baum [id number], Maja MDAttending: Maj KrystynaaCopy To: Maj KrystynaaCopy To: Malaika Valdez ID Date Data Source [id number] 12/16/2020 08:17:00 AM EDT [facility] ([facility]) Name Value Range Interpretation Code Description Data Dayna rce(s) Supporting Document(s) RED BLOOD COUNT 3.75 6/uL Below low normal RED BLOOD COUN T [facility] ([facility]) WHITE BLOOD COUNT 8.9 3/uL Normal WHITE BLOOD COUNT [facility] ([facility]) Hemoglobin [Mass/volume] in Mixed venous blood by Oximetry 11.0 g/dl Below low normal HEMOGLOBIN [facility] ([facility]) Hematocrit [Pure volume fraction] of Blood by Automated count 32 .1 % Below low normal HEMATOCRIT [facility] ([facility]) MEAN CORPUSCULAR VOLUME 85.6 fl Normal MEAN CORPUSC ULAR VOLUME [facility] ([facility]) MEAN CORPUSCULAR HEMOGLOBIN 29.3 pg Normal MEAN COR PUSCULAR HEMOGLOBIN [facility] ([facility]) MEAN CORPUSCULAR HGB CONC 34.3 g/dl Normal MEAN CORPU SCULAR HGB CONC [facility] ([facility]) PLATELET COUNT, AUTOMATED 231 3/uL Normal PLATELET C OUNT, AUTOMATED [facility] ([facility]) RED CELL DISTRIBUTION WIDTH 13.2 % Normal RED CELL DISTRIBUTION WIDTH [facility] ([facility]) NEUTROPHILS % 80.3 % Above high normal NEUTROPHILS % [facility]) LYMPH % 9.7 % Below low normal LYMPH % [facility] ([facility]) MONO % 8.4 % Above high normal MONO % [facility] ([facility]) BASO % 0.3 % Normal BASO % [facility] ([facility]) EOS % 0.2 % Normal EOS % [facility] ([facility]) IMMATURE GRANULOCYTE % 1.1 % Normal IMMATURE GRAN ULOCYTE % [facility] ([facility]) NUCLEATED RED BLOOD CELL % 0.0 % Normal NUCLEATED RED BLOOD CELL % [facility] ([facility]) NEUTROPHILS # 7.2 3/uL Normal NEUTROPHILS # [facility] ([facility]) LYMPH # 0.9 3/uL Below low normal LYMPH # [facility] ([facility]) MONO # 0.8 3/uL Normal MONO # [facility] ([facility]) EOS # 0.0 3/uL Normal EOS # [facility] ([facility]) BASO # 0.0 3/uL Normal BASO # [facility] ([facility]) ID Date Data Source [id number] 12/16/2020 08:17:00 AM EDT [facility] ([facility]) Name Value Range Interpretation Code Description Data Dayna rce(s) Supporting Document(s) Reported Physicians See Note Reported Physici ans [facility] ([facility]) Note: Reported Physicians:Ordering: Harman Baum [id number] MDAttending: Karrie Greenwoodpy To: Krystyna MajaCopy To: Malaika Valdez ID Date Data Source [id number] 12/16/2020 08:17:00 AM EDT [facility] ([facility]) Name Value Range Interpretation Code Description Data Dayna rce(s) Supporting Document(s) THYROID STIMULATING HORMONE 0.728 uIU/ML Normal THYROI D STIMULATING HORMONE [facility] ([facility]) ID Date Data Source [id number] 12/16/2020 08:17:00 AM EDT [facility] ([facility]) Name Value Range Interpretation Code Description Data Dayna rce(s) Supporting Document(s) Reported Physicians See Note Reported Physici ans [facility] ([facility]) Note: Reported Physicians:Ordering: Harman Baum [id number], Maja MDAttending: Krystyna MajaCopy To: Maj KrystynaaCopy To: Malaika Valdez ID Date Data Source [id number] 12/16/2020 08:17:00 AM EDT [facility] ([facility]) Name Value Range Interpretation Code Description Data Dayna rce(s) Supporting Document(s) LIPASE 405 U/L Above high normal LIPASE [facility]) ID Date Data Source [id number] 12/13/2020 07:59:00 AM EDT [facility] 1 OrderSheet [facility] Emergency Department [address] [place] [address] Phone #: ext- [phone] 12/13/2020 07:56 Patient: TERESA WICK Sex: M : 1940 Age: 80yWEIGHT:108.8 kg (S) HEIGHT:67 inches (S) BMI:37.6ALLERGIES: No Known Drug AllergyCHIEF COMPLAINT: sore throatDIAGNOSIS: TonsillitisLAB ORDERSOrder Description Priority Entered Acknowledged InitialedRapid Strep Screen STAT 08:02 12/13/2020 08:08 Rodriguez Larsen RN ;Culture, Throat STAT 08:02 12/13/2020 08:08 Rodriguez Larsen RN ;DIAGNOSTIC STUDY ORDERSO rder Description Priority Entered Acknowledged InitialedMEDICATION/IV/DRIP/FLUID ORDERSOrder Description Priority Entered Acknowledged InitialedGENERAL ORDERSOrder Description Priority Entered Acknowledged Initialed[Electronically signed by Ming Wilcox RN (10:50 12/13/2020)][Electronically signed by Rodriguez Fischer (13:44 12/13/2020)][Electronically locked by Ming Wilcox RN (10:50 12/13/2020)] Name Value Range Interpretation Code Description Data Dayna rce(s) Supporting Document(s) ID Date Data Source [id number] 12/13/2020 07:59:00 AM EDT [facility] 1 Medication Reconciliation Report [facility] Emergency Department [address] [place] [address] Phone #: ext- [phone] 12/13/2020 07:56 Patient: TERESA WICK Sex: M : 1940 Age: 80yWeight: 108.8 kgHeight/Length: 67 in.BMI: 37.6ALLERGIES: No Known Drug AllergyThe patient's Home Medications are listed below:CONTINUE TAKING THE FOLLOWING MEDICATIONS: Aspirin EC Oral (81 mg) 1 tablet, daily, last dose: 5080227 Atenolol Oral (50 mg) 1 tablet, 2x a day, last dose: 5080227 Esomeprazole Magnesium Oral (40 mg) 1 capsule, daily, last dose: 5080227 Fenofibrate Oral (48 mg) 1 tablet, bedtime, last dose: 5070226 Hydrochlorothiazide Oral (25 mg) 1 tablet, daily, last dose: 5080227 Losartan Potassium Oral (50 mg) 1 tablet, daily, last dose: 5070226 Potassium Chloride ER Oral (20 meq) 1 tablet, bedtime, last dose: 5070226 Travatan Z Ophthalmic (0.004 %) 1 drop, last dose: 5070226 Vitamin D Oral 11321 units, every two weeksThe source(s) of the original Home Medication information:Not obtained.The following Medications were given to the patient in the Emergency Department:None.The following Medications were prescribed to the patient:None. Name Value Range Interpretation Code Description Data Dayna e(s) Supporting Document(s) ID Date Data Source [id number] 12/13/2020 07:59:00 AM EDT [facility] 1 Medication Administration Record [facility] Emergency Department [address] [place] [address] Phone #: ext- [phone] 12/13/2020 07:56 Patient: TERESA WICK Sex: M : 1940 Age: 80yWeight: 108.8 kgHeight/Length: 67 inBMI: 37.6ALLERGIES: No Known Drug AllergyDate/Time Medication Administered Medication Ordered Name Value Range Interpretation Code Description Data Dayna rce(s) Supporting Document(s) ID Date Data Source [id number] 12/13/2020 07:59:00 AM EDT [facility] 1 General Instructions [facility] Emergency Department [address] [place] [address] #: [facility]- [phone] 12/13/2020 07:56 Patient: TERESA WICK Sex: M [...] 1 drop, Last: 5070226.Vitamin D Oral : 68093 units every two weeks.Follow- up:Follow up with your healthcare provider Tuesday. Reason for referral: evaluation. Summary of careprovided to patient via paper. Blood pressure screening was not performed during this visit because thepatient has an active diagnosis of hypertension. The patient should follow up with a primary care providerfor blood pressure management. ADDITIONAL INFORMATIONAcute Viral Pharyngitis (Sore Throat) 2 General Instructions [facility] Emergency Department [address] [place], [place] [address] Phone #: ext- [phone] 12/13/2020 07:56 Patient: [...] will also help reduce throat pain. Dissolve /2 3 General Instructions [facility] Emergency Department [address] [place] [address] Phone #: ext- [phone] 12/13/2020 07:56 Patient: [...] any of these occur: 4 General Instructions [facility] Emergency Department [address] [place] [address] Phone #: ext- [phone] 12/13/2020 07:56 Patient: [...] 101F (38.3C) or higher 5 General Instructions [facility] Emergency Department [address] [place] [address] Phone #: ext- [phone] 12/13/2020 07:56 Patient: [...] in a child age 2 or older [address] [place] [address]. All rights reserved. This information is not intended as asubstitute for professional medical care. Always follow your healthcare professional's instructions. You have been given the following additional information: Pharyngitis, Viral(Electronically signed by Rodriguez Fischer 12/13/2020 13:44) Name Value Range Interpretation Code Description Data Dayna rce(s) Supporting Document(s) ID Date Data Source [id number] 12/13/2020 07:59:00 AM EDT [facility] 1 Clinical Report - Nurses [facility] Emergency Department [address] [place] [address] Phone #: ext- [phone] 12/13/2020 07:56 Patient: TERESA WICK Sex: M : 1940 Age: 80yTRIAGEArrived by private vehicle. Historian: patient. Accompanied by family.Acuity: LEVEL 4.Chief Complaint: SORE THROAT and (swollen glands).Onset. (1 weeks ago). 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 (0630).SEPSIS SCREEN: SIRS SCREEN NEGATIVE. SEPSIS [...] 81 mg) 1 tablet, daily, last dose 763912 0153. Atenolol Oral (Tablet 50 mg) 1 tablet, 2x a day, last dose 254922 1843. Esomeprazole Magnesium Oral (Capsule Delayed Release 40 mg) 1 capsule, daily, last dose 3549680274. Fenofibrate Oral (Tablet 48 mg) 1 tablet, bedtime, last dose 249105 0841. Hydrochlorothiazide Oral (Tablet 25 mg) 1 tablet, daily, last dose 088689 6403. Losartan Potassium Oral (Tablet 50 mg) 1 tablet, daily, last dose 727241 4077. Potassium Chloride ER Oral (Tablet Extended Release 20 meq) 1 tablet, bedtime, last dose 5062019042. --08:12/13/20 Ming Wilcox RN Travatan Z Ophthalmic (Solution 0.004 %) 1 drop, last dose 383575 2323. Vitamin D Oral 17125 units, every two weeks. --08:12/13/20 Ming Wilcox RN.AllergiesNo Known Drug Allergy. --08:12/13/20 Ming Wilcox RN. 2 Clinical Report - Nurses [facility] Emergency Department [address] [place] [address] Phone #: ext- [phone] 12/13/2020 07:56 Patient: TERESA WICK [facility]#: [id number] Sex: M : 1940 Age: 80y History [...] bed on. 3 Clinical Report - Nurses [facility] Emergency Department [address] [place] [address] Phone #: ext- [phone] 12/13/2020 07:56 Patient: TERESA WICK Sex: M : 1940 Age: 80y Patient ready for evaluation- ED physician notified. --08:09 12/13/20 Ming Wilcox RN panel monitor placed on patient; panel monitor- Lead II; monitor alarms on. --08:16 12/13/20 Ming Wilcox RN 09:00 12/13/20. BP: 148/73. MAP: 98. HR: 70. RR: 18. O2 saturation: 98%. --10:09 12/13/20 [facility] BiodirectionAkin Tech1.DISPOSITION / DISCHARGE 10:09 12/13/20. BP: 155/78. HR: 68. RR: 19. O2 saturation: 98%. Temp: 98.6 F. Pain level now 10. --10:09 12/13/20 [facility] [employer] Akin HealthTell Tech1 10:47 12/13/20. Condition at departure: improved and stable. Discharge instructions provided and reviewed with the patient. Patient verbalized understanding. Written instructions provided in Scottish. The patient was discharged by the physician. He was discharged home and accompanied by family. He left ambulatory and via private vehicle. Family member driving. --10:49 12/13/20 Ming Wilcox RN.Locked/Released at 12/13/2020 10:50 by Ming Wilcox RN Name Value Range Interpretation Code Description Data Dayna rce(s) Supporting Document(s) ID Date Data Source [id number] 12/13/2020 07:59:00 AM EDT [facility] 1 Clinical Report - Physicians/Mid Levels [facility] Emergency Department [address] [place] [address] Phone #: ext- [phone] 12/13/2020 07:56 Patient: [...] (Solution 0.004 %) 1 drop, last dose 308042 8884. Vitamin D Oral 88626 units, every two weeks. Aspirin EC Oral (Tablet Delayed Release 81 mg) 1 tablet, daily, last dose 028578 6155. Atenolol Oral (Tablet 50 mg) 1 tablet, 2x a day, last dose 768140 2624. Esomeprazole Magnesium Oral (Capsule Delayed Release 40 mg) 1 capsule, daily, last dose 896274 7847. Fenofibrate Oral (Tablet 48 mg) 1 tablet , bedtime, last dose 225839 3985. Hydrochlorothiazide Oral (Tablet 25 mg) 1 tablet, daily, last dose 330822 6246. Losartan Potassium Oral (Tablet 50 mg) 1 tablet, daily, last dose 500319 0224. Potassium Chloride ER Oral (Tablet Extended Release 20 meq) 1 tablet, bedtime, last dose 953092 2 Clinical Report - Physicians/Mid Levels [facility] Emergency Department [address] [place] [address] Phone #: ext- [phone] 12/13/2020 07:56 Patient: [...] PROCEDURAL CONTROL VALID ){ KIT LOT # [id number] ){ KIT EXP DATE 03.20.22 )The Strep [...] Throat 3 Clinical Report - Physicians/Mid Levels [facility] Emergency Department [address] [place] [address] Phone #: ext- [phone] 12/13/2020 07:56 Patient: [...] follow-up. Patient agrees with plan of care. :. Disposition: Discharged h ome in good condition (:57). Condition: good and stable. Discharge decision based [...] drop, Last: 5070226. Vitamin D Oral : 05561 units every two weeks. Follow-up: Follow up with your healthcare provider Tuesday. Reason for referral: evaluation. Summary of care provided to patient via paper. Blood pressure screening was not performed during this visit because the patient has an active diagnosis of hypertension. The patient should follow up with a primary care provider for blood pressure management. 4 Clinical Report - Physicians/Mid Levels [facility] Emergency Department [address] [place] [address] Phone #: ext- [phone] 12/13/2020 07:56 Patient: TERESA WICK Sex: M : 1940 Age: 80y(Electronically signed by Rodriguez Fischer 12/13/2020 13:44) Name Value Range Interpretation Code Description Data Dayna rce(s) Supporting Document(s) ID Date Data Source [id number] 12/13/2020 08:10:00 AM EDT [facility] ([facility]) Name Value Range Interpretation Code Description Data Dayna rce(s) Supporting Document(s) Reported Physicians See Note Reported Physici ans [facility] ([facility]) Note: Reported Physicians:Ordering: RODRIGUEZ MITCHELL CAttending: RODRIGUEZ FISCHERConsulting: MALAIKA VALDEZCopdonovan To: RODRIGUEZ FISCHERCopdonovan To: Malaika Valdez ID Date Data Source [id number] 12/13/2020 08:10:00 AM EDT [facility] ([facility]) Name Value Range Interpretation Code Description Data Dayna rce(s) Supporting Document(s) CULTURE UPPER RESPIRATORY See Note CULTURE UP PER RESPIRATORY [facility] ([facility]) Note: _CULTURE UPPER RESPIRATORY_ $ [id number]$$[id number]$$[id number] $[id number] 461292$$[id number]$$[id number]$$[id number]$$[id number]$$[id number] DATE/TIME: 12/15/2020 13:05Culture: CULTURE UPPER RESPIRATORY Status: FinalUpper Respiratory Culture: [id number] respiratory floraP1 Test performed by: Jose Salazar IA #: [id number] [address] [place] [address] [address] [id number] [place] [facility] [id number] Director : Kermit Rodriguez MD NPI #:Strike Operations Officer : 12/16/[email or web address].SENT REF ID Date Data Source [id number] 12/13[facility]2020 [facility]:10[facility] Name Value Range Interpretation Code Description Data Dayna rce(s) Supporting Document(s) Reported Physicians See Note Reported Physici [facility] ([facility]) Note: Reported Physicians:Ordering: RODRIGUEZ MITCHELL CAttending: RODRIGUEZ FISCHERConsulting: MALAIKA VALDEZCopdonovan To: RODRIGUEZ FISCHERCopdonovan To: RODRIGUEZ FISCHERCopdonovan To: Malaika Valdez ID Date Data Source [id number] 12/13/2020 08:10:00 AM EDT [facility] ([facility] Name Value Range Interpretation Code Description Data Dayna rce(s) Supporting Document(s) RAPID STREP NEGATIVE RAPID STREP [facility] ([facility]) Note: Responsible Observer: (SE) RAPID STREP REENTER NEGATIVE RAPID STREP [facility] ([facility]) Note: { PROCEDURAL CONTROL VALID ){ KIT LOT # [id number] ){ KIT EXP DATE 03.20.22 )The Strep [...] not beused as the sole basis for treatment.Responsible Observer: (TAD) ID Date Data Source [id number] 12/16/2020 06:29:00 AM EDT [facility] Name Value Range Interpretation Code Description Data Dayna rce(s) Supporting Document(s) CULTURE UPPER RESPIRATORY [facility] _CULTURE UPPER RESPIRATORY_$$[id number]$$409336$$[id number]$$370620$$161003$$[id number]$$[id number] DATE/TIME: 12/15/2020 13:05Culture: CULTURE UPPER RESPIRATORY Status: FinalUpper Respiratory Culture: [id number] respiratory floraP1 Test performed by: [facility] CenterVLAD #: [id number] [address] [id number] [facility] [address]Upcpukf Director : Kermit Rodriguez MD NPI #:Strike Operations Officer : 12/16/20.0629.XMT.SENT REF ID Date Data Source [id number] 12/13/2020 08:48:00 AM EDT [facility] Name Value Range Interpretation Code Description Data Dayna rce(s) Supporting Document(s) RAPID STREP NEGATIVE NORMAL: NEGATIVE [facility] RAPID STREP REENTER NEGATIVE NORMAL: NEGATIVE [facility] { PROCEDURAL CONTROL VALID ){ KIT LOT # [id number] ){ KIT EXP DATE 03.20.22 )The Strep [...] basis for treatment. ID Date Data Source [id number] 11/13/2020 12:02:00 PM EDT [facility] ([facility]) Name Value Range Interpretation Code Description Data Dayna rce(s) Supporting Document(s) Reported Physicians See Note [facility] ([facility]) Note: Reported Physicians:Ordering: SOHAIL RAMAN [id number] V.Attending: JEFFERY SANDERSONConsulting: Ozzy Garcia Jrmitting: Long MISHRA To: Marco SANDERSON To: Thierry Valdez To: Nydia Garcia JroCojeff To: REHAN MISHRA ID Date Data Source [id number] 11/13/2020 12:02:00 PM EDT [facility] ([facility]) Name Value Range Interpretation Code Description Data Dayna rce(s) Supporting Document(s) BEDSIDE GLUCOSE 117 MG/DL Above high normal BEDSIDE GLUCO SE [facility] ([facility]) ID Date Data Source [id number] 11/13/2020 08:07:00 AM EDT [facility] ([facility]) Name Value Range Interpretation Code Description Data Dayna rce(s) Supporting Document(s) Reported Physicians See Note Reported [facility] ([facility]) Note: Reported Physicians:Ordering: SOHAIL RAMAN [id number] Antonio V.Attending: JEFFERY SANDERSONConsulting: Nydia Garcia JroAdmitting: Long MISHRA To: Marco SANDERSON To: Malaika ValdezCopdonovan To: Sabine Garcia Jr To: REHAN MISHRA ID Date Data Source [id number] 11/13/2020 08:07:00 AM EDT [facility] ([facility]) Name Value Range Interpretation Code Description Data Dayna rce(s) Supporting Document(s) BEDSIDE GLUCOSE 118 MG/DL Above high normal BEDSIDE GLUCO SE [facility] ([facility]) ID Date Data Source [id number] 11/12/2020 08:19:00 PM EDT [facility] ([facility]) Name Value Range Interpretation Code Description Data Dayna rce(s) Supporting Document(s) Reported Physicians See Note Reported [facility] ([facility]) Note: Reported Physicians:Ordering: SOHAIL RAMAN [id number] Antonio V.Attending: JEFFERY SANDERSONConsulting: Nydia Garcia JroAdmitting: Long MISHRA To: Marco SANDERSON To: eZe ValdezynCopy To: Sabine Garcia Jr To: REHAN MISHRA ID Date Data Source [id number] 11/12/2020 08:19:00 PM EDT [facility] ([facility]) Name Value Range Interpretation Code Description Data Dayna rce(s) Supporting Document(s) BEDSIDE GLUCOSE 91 MG/DL Normal BEDSIDE GLUCOSE [facility]) ID Date Data Source [id number] 11/12/2020 04:35:00 PM EDT [facility] ([facility]) Name Value Range Interpretation Code Description Data Dayna rce(s) Supporting Document(s) Reported Physicians See Note Reported [facility] ([facility]) Note: Reported Physicians:Ordering: SOHAIL RAMAN [id number] V.Attending: JEFFERY SANDERSONConsulting: Ozzy Garcia Jrmitting: Long MISHRA To: Marco SANDERSON To: Zee ValdezynCopy To: Sabine Garcia Jr To: REHAN MISHRA ID Date Data Source [id number] 11/12/2020 04:35:00 PM EDT [facility] ([facility]) Name Value Range Interpretation Code Description Data Dayna rce(s) Supporting Document(s) BEDSIDE GLUCOSE 180 MG/DL Above high normal BEDSIDE GLUCO [facility] ([facility]) Note: RN Notified ID Date Data Source [id number] 11/12/2020 11:23:00 AM EDT [facility] ([facility]) Name Value Range Interpretation Code Description Data Dayna rce(s) Supporting Document(s) Reported Physicians See Note Reported [facility] ([facility]) Note: Reported Physicians:Ordering: SOHAIL RAMAN [id number], JEFFERY SoniAttending: JEFFERY SANDERSONConsulting: Ozzy Garcia Jrmitting: Long MISHRA To: Marco SANDERSON To: Zee ValdezynCopy To: Sabine Garcia Jr To: REHAN MISHRA ID Date Data Source [id number] 11/12/2020 11:23:00 AM EDT [facility] ([facility]) Name Value Range Interpretation Code Description Data Dayna rce(s) Supporting Document(s) BEDSIDE GLUCOSE 141 MG/DL Above high normal BEDSIDE GLUCO SE [facility] ([facility]) Note: RN Notified ID Date Data Source [id number] 11/12/2020 06:36:00 AM EDT [facility] ([facility]) Name Value Range Interpretation Code Description Data Dayna rce(s) Supporting Document(s) Reported Physicians See Note Reported [facility] ([facility]) Note: Reported Physicians:Ordering: SOHAIL RAMAN [id number], JEFFERY SoniAttending: JEFFERY SANDERSONConsulting: Nydia Garcia JroAdmitting: Long MISHRA To: Macro SANDERSON To: Zee ValdezynCopy To: Sabine Garcia Jr To: REHAN MISHRA ID Date Data Source [id number] 11/12/2020 06:36:00 AM EDT [facility] ([facility]) Name Value Range Interpretation Code Description Data Dayna rce(s) Supporting Document(s) BEDSIDE GLUCOSE 131 MG/DL Above high normal BEDSIDE GLUCO SE [facility] ([facility]) ID Date Data Source [id number] 11/11/2020 11:55:00 PM EDT [facility] ([facility]) Name Value Range Interpretation Code Description Data Dayna rce(s) Supporting Document(s) Reported Physicians See Note Reported [facility] ([facility]) Note: Reported Physicians:Ordering: SOHAIL RAMAN [id number], JEFFERY SoniAttending: JEFFERY SANDERSONConsulting: Ozzy Garcia Jrmitting: Long MISHRA To: Marco SANDERSON To: Dorie ValdezcelynCopy To: Sabine Garcia Jr To: REHAN MISHRA ID Date Data Source [id number] 11/11/2020 11:55:00 PM EDT [facility] ([facility]) Name Value Range Interpretation Code Description Data Dayna rce(s) Supporting Document(s) BEDSIDE GLUCOSE 113 MG/DL Above high normal BEDSIDE GLUCO SE [facility] ([facility]) ID Date Data Source [id number] 11/11/2020 09:45:00 PM EDT [facility] ([facility]) Name Value Range Interpretation Code Description Data Dayna rce(s) Supporting Document(s) Reported Physicians See Note Reported [facility] ([facility]) Note: Reported Physicians:Ordering: SOHAIL RAMAN [id number] V.Attending: JEFFERY SANDERSONConsulting: Nydia Garcia JroAdmitting: REHAN MISHRACopdonovan To: Marco SANDERSON To: Zee ValdezynCopy To: Nydia Garcia JroCopy To: REHAN MISHRA ID Date Data Source [id number] 11/11/2020 09:45:00 PM EDT [facility] ([facility]) Name Value Range Interpretation Code Description Data Dayna rce(s) Supporting Document(s) BEDSIDE GLUCOSE 114 MG/DL Above high normal BEDSIDE GLUCO SE [facility] ([facility]) ID Date Data Source [id number] 11/11/2020 05:34:00 PM EDT [facility] ([facility]) Name Value Range Interpretation Code Description Data Dayna rce(s) Supporting Document(s) Reported Physicians See Note Reported [facility] ([facility]) Note: Reported Physicians:Ordering: SOHAIL RAMAN [id number] Antonio V.Attending: JEFFERY SANDERSONConsulting: Nydia Garcia JroAdmitting: Long MISHRA To: Marco SANDERSON To: Zee ValdezynCopy To: Nydia Garcia JroCojeff To: DANICA REHAN ID Date Data Source [id number] 11/11/2020 05:34:00 PM EDT [facility] ([facility]) Name Value Range Interpretation Code Description Data Dayna rce(s) Supporting Document(s) BEDSIDE GLUCOSE 119 MG/DL Above high normal BEDSIDE GLUCO SE [facility] ([facility]) ID Date Data Source [id number] 11/11/2020 12:10:00 PM EDT [facility] ([facility]) Name Value Range Interpretation Code Description Data Dayna rce(s) Supporting Document(s) Reported Physicians See Note Reported Physici ans [facility] ([facility]) Note: Reported Physicians:Ordering: SOHAIL RAMAN [id number], JEFFERY SoniAttending: JEFFERY SANDERSONConsulting: Nydia Garcia JroAdmitting: Long MISHRA To: Marco SANDERSON To: Thierry Valdez To: Nydia Garcia JroCopy To: REHAN MISHRA ID Date Data Source [id number] 11/11/2020 12:10:00 PM EDT [facility] ([facility]) Name Value Range Interpretation Code Description Data Dayna rce(s) Supporting Document(s) BEDSIDE GLUCOSE 132 MG/DL Above high normal BEDSIDE GLUCO SE [facility] ([facility]) ID Date Data Source [id number] 11/11/2020 05:53:00 AM EDT [facility] ([facility]) Name Value Range Interpretation Code Description Data Dayna rce(s) Supporting Document(s) Reported Physicians See Note Reported Physici ans [facility] ([facility]) Note: Reported Physicians:Ordering: RO PERALTA [id number], REHAN MDAttending: JEFFERY SANDERSONConsulting: Nydia Garcia JroAdmitting: Long MISHRA To: Marco SANDERSON To: Long MISHRA To: Malaika ValdezCopdonovan To: Nils Garcia Jr ID Date Data Source [id number] 11/11/2020 05:53:00 AM EDT [facility] ([facility]) Name Value Range Interpretation Code Description Data Dayna rce(s) Supporting Document(s) GLUCOSE, FASTING 131 MG/DL Above high normal GLUCOSE, FAS TING [facility] ([facility]) BLOOD UREA NITROGEN 8 MG/DL Significant change down BLO OD UREA NITROGEN [facility] ([facility]) CREATININE FOR GFR 1.01 MG/DL Normal CREATININE FOR GF R [facility] ([facility]) GLOMERULAR FILTRATION RATE > 60.0 Normal GLOMERULA R FILTRATION RATE [facility]) Note: Units are mL/min/1.73 m2 Chroni c Kidney Disease Staging per NKF: Stage I & II GFR >=60 Normal to Mildly Decreased Stage III GFR 30- 59 Moderately Decreased Stage IV GFR 15-29 Severely Decreased Stage V GFR <15 Very Little GFR Left ESRD GFR <15 on NURSE LIAISON SODIUM LEVEL 142 MEQ/L Normal SODIUM LEVEL [facility]) POTASSIUM SERUM 3.8 MEQ/L Normal POTASSIUM SERUM GREE [facility] ([facility]) CARBON DIOXIDE LEVEL 28 MEQ/L Normal CARBON DIOXIDE LEVEL [facility]) CHLORIDE LEVEL 109 MEQ/L Above high normal CHLORIDE LEVEL [facility]) Anion gap in Body fluid 5 MEQ/L Below low normal ANION GAP [facility]) CALCIUM LEVEL 7.9 MG/DL Below low normal [facility] ID Date Data Source [id number] 11/11/2020 05:53:00 AM EDT [facility] ([facility]) Name Value Range Interpretation Code Description Data Dayna rce(s) Supporting Document(s) Reported Physicians See Note Reported Physici ans [facility] ([facility]) Note: Reported Physicians:Ordering: RO PERALTA [id number] MDAttending: JEFFERY SANDERSONConsulting: Ozzy Garcia Jrmitting: Long MISHRA To: Marco SANDERSON To: Long MISHRA To: Thierry Valdez To: Nils Garcia Jr ID Date Data Source [id number] 11/11/2020 05:53:00 AM EDT [facility] ([facility]) Name Value Range Interpretation Code Description Data Dayna rce(s) Supporting Document(s) WHITE BLOOD COUNT 4.4 3/uL Normal WHITE BLOOD COUNT [facility] ([facility]) RED BLOOD COUNT 4.07 6/uL Below low normal RED BLOOD COUN T [facility]) Hemoglobin [Mass/volume] in Mixed venous blood by Oximetry 12.2 g/dl Below low normal HEMOGLOBIN [facility]) Hematocrit [Pure volume fraction] of Blood by Automated count 35 .4 % Below low normal HEMATOCRIT [facility]) MEAN CORPUSCULAR VOLUME 87.0 fl Normal MEAN CORPUSC ULAR VOLUME [facility]) MEAN CORPUSCULAR HGB CONC 34.5 g/dl Normal MEAN CORPU SCULAR HGB CONC [facility] ([facility]) MEAN CORPUSCULAR HEMOGLOBIN 30.0 pg Normal MEAN COR PUSCULAR HEMOGLOBIN [facility]) RED CELL DISTRIBUTION WIDTH 13.2 % Normal RED CELL DISTRIBUTION WIDTH [facility]) PLATELET COUNT, AUTOMATED 145 3/uL Below low normal PLAT ELET COUNT, AUTOMATED [facility] ([facility]) NUCLEATED RED BLOOD CELL % 0.0 % Normal NUCLEATED RED BLOOD CELL % [facility] ([facility]) ID Date Data Source [id number] 11/11/2020 05:48:00 AM EDT [facility] ([facility]) Name Value Range Interpretation Code Description Data Dayna rce(s) Supporting Document(s) Reported Physicians See Note Reported Physici ans [facility] ([facility]) Note: Reported Physicians:Ordering: SOHAIL RAMAN [id number] V.Attending: JEFFERY SANDERSONConsulting: Ozzy Garcia Jrmitting: Long MISHRA To: JEFFERY SANDERSONCopdonovan To: Zee ValdezynCopdonovan To: Nydia Garcia JroCopy To: REHAN MISHRA ID Date Data Source [id number] 11/11/2020 05:48:00 AM EDT [facility] ([facility]) Name Value Range Interpretation Code Description Data Dayna rce(s) Supporting Document(s) BEDSIDE GLUCOSE 124 MG/DL Above high normal BEDSIDE GLUCO SE [facility]) ID Date Data Source [id number] 11/10/2020 11:46:00 PM EDT [facility] ([facility]) Name Value Range Interpretation Code Description Data Dayna rce(s) Supporting Document(s) Reported Physicians See Note Reported Physici ans [facility] ([facility]) Note: Reported Physicians:Ordering: SOHAIL RAMAN [id number] Antonio V.Attending: JEFFERY SANDERSONConsulting: Ozzy Garcia Jrmitting: Long MISHRA To: Marco SANDERSON To: Dorie ValdezcelynCopy To: Nydia Garcia JroCojeff To: REHAN MISHRA ID Date Data Source [id number] 11/10/2020 11:46:00 PM EDT [facility] ([facility]) Name Value Range Interpretation Code Description Data Dayna rce(s) Supporting Document(s) BEDSIDE GLUCOSE 104 MG/DL Normal BEDSIDE GLUCOSE GREE [facility] ([facility]) ID Date Data Source [id number] 11/10/2020 05:17:00 PM EDT [facility] ([facility]) Name Value Range Interpretation Code Description Data Dayna rce(s) Supporting Document(s) Reported Physicians See Note Reported Physici ans [facility] ([facility]) Note: Reported Physicians:Ordering: SOHAIL RAMAN [id number] V.Attending: JEFFERY SANDERSONConsulting: Ozzy Garcia Jrmitting: Long MISHRA To: Marco SANDERSON To: Zee ValdezynCopy To: Sabine Garcia Jr To: REHAN MISHRA ID Date Data Source [id number] 11/10/2020 05:17:00 PM EDT [facility] ([facility]) Name Value Range Interpretation Code Description Data Dayna rce(s) Supporting Document(s) BEDSIDE GLUCOSE 139 MG/DL Above high normal BEDSIDE GLUCO SE [facility] ([facility]) ID Date Data Source [id number] 11/10/2020 11:58:00 AM EDT [facility] ([facility]) Name Value Range Interpretation Code Description Data Dayna rce(s) Supporting Document(s) Reported Physicians See Note Reported Physici ans [facility] ([facility]) Note: Reported Physicians:Ordering: SOHAIL RAMAN [id number] V.Attending: JEFFERY SANDERSONConsulting: Jose EdwardAdmitting: REHAN MISHRACopy To: Marco SANDERSON To: Zee ValdezynCopy To: Mick GarciawardCopy To: REHAN MISHRA ID Date Data Source [id number] 11/10/2020 11:58:00 AM EDT [facility] ([facility]) Name Value Range Interpretation Code Description Data Dayna rce(s) Supporting Document(s) BEDSIDE GLUCOSE 170 MG/DL Above high normal BEDSIDE GLUCO SE [facility] ([facility]) ID Date Data Source [id number] 11/10/2020 06:00:00 AM EDT [facility] ([facility]) Name Value Range Interpretation Code Description Data Dayna rce(s) Supporting Document(s) Reported Physicians See Note Reported Physici ans [facility] ([facility]) Note: Reported Physicians:Ordering: RO PERALTA [id number], REHAN MDAttending: REHAN MISHRAConsulting: Mick GarciawardAdmitting: REJIANGLYDIA SilvaITACopy To: LYDIA MISHRAITACopy To: Zee ValdezynCopy To: JOAO CARRANZACopy To: David Garcia ID Date Data Source [id number] 11/10/2020 06:00:00 AM EDT [facility] ([facility]) Name Value Range Interpretation Code Description Data Dayna rce(s) Supporting Document(s) Hemoglobin A1c in Blood 6.7 % Normal HEMOGLOBIN A [address] [place] [address] ([facility]) Note: REFERENCE RANGES: <=5.6% NOR MAL 5.7-6.4% SUGGESTS IMPAIRED GLUCOSE METABOLISM/PREDIABETIC >= 6.5% ABNORMAL Glucose mean value [Moles/volume] in Blood Estimated f rom glycated hemoglobin 146 MG/DL Above high normal ESTIMATED AVERAGE GLUCOSE BAUTISTA KATLYN [facility]) ID Date Data Source [id number] 11/10/2020 05:45:00 AM EDT [facility] ([facility]) Name Value Range Interpretation Code Description Data Dayna rce(s) Supporting Document(s) Reported Physicians See Note Reported Physici ans [facility] ([facility]) Note: Reported Physicians:Ordering: RO PERALTA [id number], REHAN MDAttending: LWANGA ANITAConsulting: Jose, EdwardAdmitting: LWANGA, ANITACopy To: LWANGA, ANITACopy To: Courtney, JocelynCopy To: David Garcia ID Date Data Source [id number] 11/10/2020 05:45:00 AM EDT [facility] ([facility]) Name Value Range Interpretation Code Description Data Dayna rce(s) Supporting Document(s) BEDSIDE GLUCOSE 171 MG/DL Above high normal BEDSIDE GLUCO SE [facility]) ID Date Data Source [id number] 11/10/2020 01:41:00 AM EDT [facility] ([facility]) Name Value Range Interpretation Code Description Data Dayna rce(s) Supporting Document(s) Reported Physicians See Note [facility]orted [facility] ([facility]) Note: Reported Physicians:Ordering: OR PERALTA [id number], REHAN MDAttending: DIYAA ANITAConsulting: Jose, EdwardAdmitting: LWANGA, ANITACopy To: LWANGA, ANITACopy To: Courtney, JocelynCopy To: FLINT, DAVIDCopy To: David Garcia ID Date Data Source [id number] 11/10/2020 01:41:00 AM EDT [facility] ([facility]) Name Value Range Interpretation Code Description Data Dayna rce(s) Supporting Document(s) WHITE BLOOD COUNT 7.1 3/uL Normal WHITE BLOOD COUNT [facility]) RED BLOOD COUNT 4.43 6/uL Normal RED BLOOD COUNT BAUTISTA [facility] ([facility]) Hemoglobin [Mass/volume] in Mixed venous blood by Oximetry 13.2 g/dl Below low normal HEMOGLOBIN [facility]) MEAN CORPUSCULAR VOLUME 85.1 fl Normal MEAN CORPUSC ULAR VOLUME [facility]) Hematocrit [Pure volume fraction] of Blood by Automated count 37 .7 % Below low normal HEMATOCRIT [facility]) MEAN CORPUSCULAR HGB CONC 35.0 g/dl Normal MEAN CORPU SCULAR HGB CONC [facility] ([facility]) MEAN CORPUSCULAR HEMOGLOBIN 29.8 pg Normal MEAN COR PUSCULAR HEMOGLOBIN [facility]) PLATELET COUNT, AUTOMATED 155 3/uL Normal PLATELET C OUNT, AUTOMATED [facility] ([facility]) RED CELL DISTRIBUTION WIDTH 13.0 % Normal RED CELL DISTRIBUTION WIDTH [facility] ([facility]) NUCLEATED RED BLOOD CELL % 0.0 % Normal NUCLEATED RED BLOOD CELL % [facility] ([facility]) ID Date Data Source [id number] 11/10/2020 01:41:00 AM EDT [facility] ([facility]) Name Value Range Interpretation Code Description Data Dayna rce(s) Supporting Document(s) Reported Physicians See Note Reported Physici ans [facility]) Note: Reported Physicians:Ordering: RO PERALTA [id number], REHAN MDAttending: REHAN MISHRAConsulting: David GarciaAdmitting: REHAN MISHRACopdonovan To: REHAN MISHRACopdonovan To: Malaika ValdezCopdonovan To: Shade CARRANZA To: David Garcia ID Date Data Source [id number] 11/10/2020 01:41:00 AM EDT [facility] ([facility]) Name Value Range Interpretation Code Description Data Dayna rce(s) Supporting Document(s) GLUCOSE, FASTING 164 MG/DL Above high normal GLUCOSE, FAS TING [facility] ([facility]) BLOOD UREA NITROGEN 18 MG/DL Normal BLOOD UREA NITRO GEN [facility] ([facility]) GLOMERULAR FILTRATION RATE > 60.0 Normal GLOMERULA R FILTRATION RATE [facility] ([facility]) Note: Units are mL/min/1.73 m2 Chroni c Kidney Disease Staging per NKF: Stage I & II GFR >=60 Normal to Mildly Decreased Stage III GFR 30- 59 Moderately Decreased Stage IV GFR 15-29 Severely Decreased Stage V GFR <15 Very Little GFR Left ESRD GFR <15 on NURSE LIAISON CREATININE FOR GFR 1.18 MG/DL Normal CREATININE FOR GF R [facility] ([facility]) SODIUM LEVEL 140 MEQ/L Normal SODIUM LEVEL [facility] ( [facility]) POTASSIUM SERUM 3.7 MEQ/L Normal POTASSIUM SERUM [place] ([facility]) CARBON DIOXIDE LEVEL 27 MEQ/L Normal CARBON DIOXIDE LEVEL [facility] ([facility]) CHLORIDE LEVEL 105 MEQ/L Normal CHLORIDE LEVEL [facility] ([facility]) CALCIUM LEVEL 8.4 MG/DL Below low normal CALCIUM LEVEL GR [facility] ([facility]) Anion gap in Body fluid 8 MEQ/L Normal ANION GAP G [facility] ([facility]) ID Date Data Source [id number] 11/10/2020 01:40:00 AM EDT [facility] ([facility]) Name Value Range Interpretation Code Description Data Dayna rce(s) Supporting Document(s) Reported Physicians See Note Reported Physici brenden [facility] ([facility]) Note: Reported Physicians:Ordering: RO PERALTA [id number], REHAN ALCANTARttending: REHAN MISHRAConsulting: Jose EdwardAdmitting: DANICA ANITACopy To: LYDIA MISHRAITACopy To: Dorie ValdezcelynCopy To: David Garcia ID Date Data Source [id number] 11/10/2020 01:40:00 AM EDT [facility] ([facility]) Name Value Range Interpretation Code Description Data Dayna rce(s) Supporting Document(s) BEDSIDE GLUCOSE 165 MG/DL Above high normal BEDSIDE GLUCO SE [facility]) ID Date Data Source [id number] 11/09/2020 11:47:00 PM EDT [facility] ([facility]) Name Value Range Interpretation Code Description Data Dayna rce(s) Supporting Document(s) Reported Physicians See Note Reported [facility] ([facility]) Note: Reported Physicians:Ordering: BIANKA Montez [id number]: REHAN MISHRAConsulting: Jose EdwardAdmitting: REJIANGA ANITACopy To: REJIANGA, ANITACopy To: Shade CARRANZA To: Courtney, Malaika ID Date Data Source [id number] 11/09/2020 11:47:00 PM EDT [facility] ([facility]) Name Value Range Interpretation Code Description Data Dayna rce(s) Supporting Document(s) INFLUENZA A AMPLIFICATION NEGATIVE Normal INFLUENZA A AMPLIFICATION [facility] ([facility]) Note: Negative results do not preclude i nfluenza or RSV virus infection and should not be used as the sole basis for treatment or other patient management decisions. INFLUENZA B AMPLIFICATION NEGATIVE Normal INFLUENZA B AMPLIFICATION [facility] ([facility]) Note: Negative results do not preclude i nfluenza or RSV virus infection and should not be used as the sole basis for treatment or other patient management decisions. RSV AMPLIFICATION NEGATIVE Normal RSV AMPLIFICATION [facility] ([facility]) Note: Negative results do not preclude i nfluenza or RSV virus infection and should not be used as the sole basis for treatment or other patient management decisions. SARS COVID-19 AMPLIFICATION NEGATIVE Normal SARS COV ID-19 AMPLIFICATION [facility]) Note: A false negative result may occur if a specimen is improperly collected, transported or handled. False negative results may also occur if inadequate numbers of organisms are present in the specimen. As with any molecular test, mutations within the target regions of Xpert Xpress SARS-CoV-2 could affect primer and/or probe binding resulting in failure to detect the presence of virus. This test cannot rule out diseases caused by other bacterial or viral pathogens. DISCLAIMER: Testing was performed using the [employer] SARS-CoV-2 test. This test was developed and its performance characteristics determined by [employer]. This test has not been FDA cleared or approved. This test has been authorized by FDA under an Emergency Use Authorization (EUA). This test is only authorized for the duration of time the declaration that circumstances exist justifying the authorization of the emergency use of in vitro diagnostic tests for detection of SARS-CoV-2 virus and/or diagnosis of COVID-19 infection under section 564(b)(1) of the Act, 21 U.S.C. 360bbb-3(b)(1), unless the authorization is terminated or revoked sooner. ID Date Data Source [id number] 11/09/2020 11:47:00 PM EDT [facility] Name Value Range Interpretation Code Description Data Dayna rce(s) Supporting Document(s) SARS coronavirus 2 RNA [Presence] in Res piratory specimen by DANNY with probe detection NEGATIVE [facility] This lab was ordered by [facility] a nd reported by [facility]. ID Date Data Source [id number] 10/09/2020 09:14:00 AM EDT [facility] ([facility]) Name Value Range Interpretation Code Description Data Dayna rce(s) Supporting Document(s) Glucose [Mass/volume] in Urine collected for unspecified duratio n 215 Abnormal (applies to non-numeric results) Glucose [facility] ([facility]) ID Date Data Source [id number] 10/09/2020 09:13:00 AM EDT [facility] ([facility]) Name Value Range Interpretation Code Description Data Dayna rce(s) Supporting Document(s) Hemoglobin A1c/Hemoglobin.total in Blood 6.9 Abnormal (applies to non-numeric results) HbA1C [facility] ([facility]) ID Date Data Source [id number] 07/14/2020 09:28:00 AM EDT [facility] ([facility]) Name Value Range Interpretation Code Description Data Dayna rce(s) Supporting Document(s) Hemoglobin A1c/Hemoglobin.total in Blood 6.6 Abnormal (applies to non-numeric results) HbA1C [facility] ([facility]) ID Date Data Source [id number] 07/14/2020 09:27:00 AM EDT [facility] ([facility]) Name Value Range Interpretation Code Description Data Dayna rce(s) Supporting Document(s) Glucose [Mass/volume] in Urine collected for unspecified duratio n 170 Abnormal (applies to non-numeric results) Glucose [facility] ([facility]) ID Date Data Source [id number] 03/26/2020 06:17:00 AM EST [facility] ([facility]) Name Value Range Interpretation Code Description Data Dayna rce(s) Supporting Document(s) Reported Physicians See Note Reported Physici ans [facility] ([facility]) Note: Reported Physicians:Ordering: Ralph as, KennaAttending: ForrestonKenna ribeiroCopy To: Eliazar SánchezicaCopy To: Malaika Valdez ID Date Data Source [id number] 03/26/2020 06:17:00 AM [facility] ([facility]) Name Value Range Interpretation Code Description Data Dayna rce(s) Supporting Document(s) MALB URINE SIEMENS 44.4 MG/L Normal MALB URINE SIEMEN S [facility] ([facility]) CREATININE, URINE 72.6 MG/DL Normal CREATININE, URINE [facility] ([facility]) EDE/CREAT RATIO 61.1 MCG/MG Above high normal EDE/CREAT RA NIA [facility] ([facility]) Note: THE [employer] STATES THAT MICROALBUMINURIA IS PRESENT IF THE MICROALBUMIN/CREATININE RATIO EXCEEDS 30 MCG/MG. THE THRESHOLD FOR CLINICAL ALBUMINURIA IS REACHED AT 300 MCG/MG. THE CLASSIFICATION OF A PATIENT SHOULD BE BASED UPON AT LEAST 2 OF 3 ABNORMAL RESULTS ON SPECIMENS COLLECTED WITHIN A 3 TO 6 MONTH TIME FRAME. ID Date Data Source [id number] 03/26/2020 06:14:00 AM [facility] ([facility]) Name Value Range Interpretation Code Description Data [facility] rce(s) Supporting Document(s) Reported Physicians See Note Reported Physici ans [facility] ([facility]) Note: Reported Physicians:Ordering: Kenna CamposAttending: Geri áSnchez To: Geri Sánchez To: Malaika Valdez ID Date Data Source [id number] 03/26/2020 06:14:00 AM [facility] ([facility]) Name Value Range Interpretation Code Description Data [facility] rce(s) Supporting Document(s) WHITE BLOOD COUNT 6.0 3/uL Normal WHITE BLOOD COUNT [facility]) Hemoglobin [Mass/volume] in Mixed venous blood by Oximetry 14.3 g/d l Normal HEMOGLOBIN [facility]) MEAN CORPUSCULAR VOLUME 87.1 fl Normal MEAN CORPUSC ULAR VOLUME [facility]) Hematocrit [Pure volume fraction] of Blood by Automated count 41 .9 % Below low normal HEMATOCRIT [facility]) RED BLOOD COUNT 4.81 6/uL Normal RED BLOOD COUNT BA[facility]ISTA [facility]) RED CELL DISTRIBUTION WIDTH 13.2 % Normal RED CELL DISTRIBUTION WIDTH [facility]) MEAN CORPUSCULAR HEMOGLOBIN 29.7 pg Normal MEAN COR PUSCULAR HEMOGLOBIN [facility] ([facility]) MEAN CORPUSCULAR HGB CONC 34.1 g/dl Normal MEAN CORPU SCULAR HGB CONC [facility] ([facility]) NUCLEATED RED BLOOD CELL % 0.0 % Normal NUCLEATED RED BLOOD CELL % [facility] ([facility]) PLATELET COUNT, AUTOMATED 155 3/uL Normal PLATELET C OUNT, AUTOMATED [facility] ([facility]) ID Date Data Source [id number] 03/26/2020 06:14:00 AM EST [facility] ([facility]) Name Value Range Interpretation Code Description Data Dayna rce(s) Supporting Document(s) Reported Physicians See Note Reported Physici ans [facility] ([facility]) Note: Reported Physicians:Ordering: Kenna CamposAttending: Kenna SánchezCopdonovan To: Geri Sánchez To: Malaika Valdez ID Date Data Source [id number] 03/26/2020 06:14:00 AM EST [facility] ([facility]) Name Value Range Interpretation Code Description Data Dayna rce(s) Supporting Document(s) TOTAL 25(OH) VITAMIN D 46.0 NG/ML Normal TOTAL 25(OH) VITAMIN D [facility]) ID Date Data Source [id number] 03/26/2020 06:14:00 AM EST [facility] ([facility]) Name Value Range Interpretation Code Description Data Dayna rce(s) Supporting Document(s) Reported Physicians See Note Reported [facility] ([facility]) Note: Reported Physicians:Ordering: Kenna CamposAttending: Eliazar SánchezicaCopy To: Kenna SánchezCopdonovan To: Malaika Valdez ID Date Data Source [id number] 03/26/2020 06:14:00 AM EST [facility] ([facility]) Name Value Range Interpretation Code Description Data Dayna rce(s) Supporting Document(s) TRIGLYCERIDES LEVEL 115 MG/DL Normal TRIGLYCERIDES LE KATHY [facility] ([facility]) CHOLESTEROL LEVEL 137 MG/DL Normal CHOLESTEROL LEVEL [facility]) NON-HDL-C 104 MG/DL Normal NON-HDL-C [facility] ([facility]) LDL CHOLESTEROL 81 MG/DL Normal LDL CHOLESTEROL [facility] ([facility]) HDL CHOLESTEROL 33 MG/DL Below low normal HDL CHOLESTERO L [facility] ([facility]) CHOLESTEROL RISK RATIO 4.151 Normal CHOLESTEROL R ISK RATIO [facility]) ID Date Data Source [id number] 03/26/2020 06:14:00 AM [facility] ([facility]) Name Value Range Interpretation Code Description Data Dayna rce(s) Supporting Document(s) Reported Physicians See Note Reported [facility]ici [facility] ([facility]) Note: Reported Physicians:Ordering: Cristóbal Camposending: Geri Sánchez To: Eliazar Sánchezuniversity of south [facility] children's [facility] women's hospitalBella To: Malaika Valdez ID Date Data Source [id number] 03/26/2020 06:14:00 AM [facility] ([facility]) Name Value Range Interpretation Code Description Data Dayna rce(s) Supporting Document(s) GLUCOSE, FASTING 131 MG/DL Above high normal GLUCOSE, FAS TING [facility] ([facility]) GLOMERULAR FILTRATION RATE 58.2 Normal GLOMERULA R FILTRATION RATE [facility]) Note: Units are mL/min/1.73 m2 Chroni c Kidney Disease Staging per NKF: Stage I & II GFR >=60 Normal to Mildly Decreased Stage III GFR 30- 59 Moderately Decreased Stage IV GFR 15-29 Severely Decreased Stage V GFR <15 Very Little GFR Left ESRD GFR <15 on NURSE LIAISON CREATININE FOR GFR 1.27 MG/DL Normal CREATININE FOR GF R [facility] ([facility]) BLOOD UREA NITROGEN 19 MG/DL Above high normal BLOOD URE A NITROGEN [facility] ([facility]) SODIUM LEVEL 140 MEQ/L Normal SODIUM LEVEL [facility]) POTASSIUM SERUM 3.9 MEQ/L Normal POTASSIUM SERUM [facility]) CHLORIDE LEVEL 105 MEQ/L Normal CHLORIDE LEVEL [facility]) CARBON DIOXIDE LEVEL 29 MEQ/L Normal CARBON DIOXIDE LEVEL [facility]) CALCIUM LEVEL 9.3 MG/DL Normal CALCIUM LEVEL [facility]) Anion gap in Body fluid 6 MEQ/L Below low normal ANION GAP [facility]) ALT/SGPT 35 U/L Normal ALT/SGPT [facility]) Alkaline phosphatase [Enzymatic activity/volume] in Se rum, Plasma or Blood 44 U/L Below low normal ALKALINE PHOSPHATASE [facility]) AST/SGOT 19 U/L Normal AST/SGOT [facility]) Albumin [Mass/volume] in Blood by Bromocresol purple ( BCP) dye binding method 4.0 GM/DL Normal ALBUMIN [facility]) TOTAL PROTEIN 6.7 GM/DL Normal TOTAL PROTEIN [facility]) BILIRUBIN,TOTAL 0.6 MG/DL Normal BILIRUBIN,TOTAL GREE [facility]) ALBUMIN/GLOBULIN RATIO 1.5 Normal ALBUMIN/GLOBU TOVA RATIO [facility]) ID Date Data Source [id number] 01/01/2020 01:41:00 PM EST [facility] ([facility]) Name Value Range Interpretation Code Description Data Dayna rce(s) Supporting Document(s) Glucose [Mass/volume] in Urine collected for unspecified duration 1 30 Normal Glucose [facility]) ID Date Data Source [id number] 01/01/2020 01:40:00 PM [facility] ([facility]) Name Value Range Interpretation Code Description Data Dayna rce(s) Supporting Document(s) Hemoglobin A1c/Hemoglobin.total in Blood 6.6 Abnormal (applies to non-numeric results) HbA1C [facility]) Procedure Social History No Information Vital Signs ID Date Data Source UNK Name Value Range Interpretation Code Description Data Source(s) Body mass index (BMI) [Ratio] 41.7 kg/m2 41.7 k g/m2 [facility]) Body surface area Derived from formula 2.15 m2 2.15 m2 [facility]) Oxygen saturation in Arterial blood by Pulse oximetry 98 % 98 % [facility]) Inhaled oxygen flow rate 0 L/min 0 L/min [facility] ([facility]) Inhaled oxygen concentration 21 % 21 % [facility] ([facility]) Systolic blood pressure 138 mm[Hg] 138 mm[Hg] [facility] ([facility]) Diastolic blood pressure 88 mm[Hg] 88 mm[Hg] [facility] ([facility]) Heart rate 74 /min 74 /min [facility] ([facility]) Respiratory rate 24 /min 24 /min [facility] ([facility]) Body temperature 97.6 [degF] 97.6 [degF] [facility] ([facility]) Body height 64.5 [in_i] 64.5 [in_i] [facility] ([facility]) Body weight 247 [lb_av] 247 [lb_av] [facility] ([facility]) Body mass index (BMI) [Ratio] 43.4 kg/m2 43.4 k g/m2 [facility] ([facility]) Body surface area Derived from formula 2.19 m2 2.19 m2 [facility] ([facility]) Oxygen saturation in Arterial blood by Pulse oximetry 96 % 96 % [facility] ([facility]) Systolic blood pressure 148 mm[Hg] 148 mm[Hg] [facility] ([facility]) Diastolic blood pressure 74 mm[Hg] 74 mm[Hg] [facility] ([facility]) Heart rate 88 /min 88 /min [facility] ([facility]) Respiratory rate 20 /min 20 /min [facility] ([facility]) Body temperature 98.2 [degF] 98.2 [degF] [facility] ([facility]) Body height 64.5 [in_i] 64.5 [in_i] [facility] ([facility]) Body weight 257 [lb_av] 257 [lb_av] [facility] ([facility]) Body mass index (BMI) [Ratio] 45.1 kg/m2 45.1 k g/m2 [facility] ([facility]) Body surface area Derived from formula 2.22 m2 2.22 m2 [facility] ([facility]) Oxygen saturation in Arterial blood by Pulse oximetry 97 % 97 % [facility] ([facility]) Systolic blood pressure 138 mm[Hg] 138 mm[Hg] [facility] ([facility]) Diastolic blood pressure 90 mm[Hg] 90 mm[Hg] [facility] ([facility]) Heart rate 68 /min 68 /min [facility] ([facility]) Respiratory rate 24 /min 24 /min [facility] ([facility]) Body temperature 98.2 [degF] 98.2 [degF] [facility] ([facility]) Body height 64.5 [in_i] 64.5 [in_i] [facility] ([facility]) Body weight 267 [lb_av] 267 [lb_av] [facility] ([facility]) Body weight 121.[address] [facility] Systolic blood pressure 126 mm[Hg] 126 mm[Hg] [facility] Body mass index (BMI) [Ratio] 44.43 kg/m2 44.43 kg/m2 [facility] Diastolic blood pressure 76 mm[Hg] 76 mm[Hg] [facility] Heart rate 68 /min 68 /min [facility] Respiratory rate 16 /min 16 /min [facility] Body height 165.[address] [facility] Inhaled oxygen flow rate 0 L/min 0 L/min [facility] ([facility]) Inhaled oxygen concentration 21 % 21 % [facility] ([facility]) Systolic blood pressure 134 mm[Hg] 134 mm[Hg] [facility] ([facility]) Diastolic blood pressure 74 mm[Hg] 74 mm[Hg] [facility] ([facility]) Heart rate 63 /min 63 /min [facility] ([facility]) Respiratory rate 22 /min 22 /min [facility] ([facility]) Body temperature 95.7 [degF] 95.7 [degF] [facility] ([facility]) Body height 64.5 [in_i] 64.5 [in_i] [facility] ([facility]) Body weight 264 [lb_av] 264 [lb_av] [facility] ([facility]) Body mass index (BMI) [Ratio] 44.6 kg/m2 44.6 k g/m2 [facility] ([facility]) Body surface area Derived from formula 2.21 m2 2.21 m2 [facility] ([facility]) Oxygen saturation in Arterial blood by Pulse oximetry 97 % 97 % [facility] ([facility]) Systolic blood pressure 132 mm[Hg] 132 mm[Hg] [facility] Diastolic blood pressure 80 mm[Hg] 80 mm[Hg] [facility] Heart rate 64 /min 64 /min [facility] Respiratory rate 16 /min 16 /min [facility] Body height 165.[address] [facility] Body weight 118.[address] [facility] Body mass index (BMI) [Ratio] 43.60 kg/m2 43.60 kg/m2 [facility] Heart rate 78 /min 78 /min [facility] ([facility]) Body mass index (BMI) [Ratio] 44.4 kg/m2 44.4 k g/m2 [facility] ([facility]) Body surface area Derived from formula 2.21 m2 2.21 m2 [facility] ([facility]) Oxygen saturation in Arterial blood by Pulse oximetry 95 % 95 % [facility] ([facility]) Inhaled oxygen flow rate 0 L/min 0 L/min [facility] ([facility]) Inhaled oxygen concentration 21 % 21 % [facility] ([facility]) Systolic blood pressure 138 mm[Hg] 138 mm[Hg] [facility] ([facility]) Diastolic blood pressure 78 mm[Hg] 78 mm[Hg] [facility] ([facility]) Respiratory rate 22 /min 22 /min [facility] ([facility]) Body temperature 96.9 [degF] 96.9 [degF] [facility] ([facility]) Body height 64.5 [in_i] 64.5 [in_i] [facility] ([facility]) Body weight 263 [lb_av] 263 [lb_av] [facility] ([facility]) Patient Treatment Plan of Care Planned Activity Planned Date Details Description Data Source (s) pantoprazole 40 MG Delayed Release Oral Tablet 12/15/2020 12:00:00 AM EDT [facility] ([facility]) pantoprazole 40 MG Delayed Release Oral Tablet 12/11/2020 12:00:00 AM EDT [facility] ([facility]) Sucralfate 1000 MG Oral Tablet 11/24/2020 12:00:00 AM EDT [facility] ([facility]) Amlodipine 5 MG Oral Tablet 11/24/2020 12:00:00 AM EDT [facility] ([facility]) pantoprazole 40 MG Delayed Release Oral Tablet 11/18/2020 12:00:00 AM EDT [facility] ([facility]) Metoclopramide 10 MG Oral Tablet [Reglan] 11/18/2020 12:00:00 AM ED T [facility] ([facility]) Accu-Chek Iy Plus In Vitro Strip 10/23/2020 12:00:00 AM EDT [facility] ([facility]) Esomeprazole 40 MG Delayed Release Oral Capsule [Nexiu m] 10/09/2020 12:00:00 AM EDT [facility] ([facility]) Accu-Chek Soft Touch Lancets Miscellaneous 10/09/2020 12:00:00 AM E DT [facility] ([facility]) SM Aspirin Adult Low Strength 81 MG Oral Tablet Delaye d Release 10/09/2020 12:00:00 AM EDT [facility] ([facility]) Atenolol 50 MG Oral Tablet [Tenormin] 10/09/2020 12:00:00 AM EDT [facility] ([facility]) Ergocalciferol [id number] UNT Oral Capsule [Drisdol] 10/09/2020 12:00:00 AM EDT [facility] ([facility]) Fenofibrate 48 MG Oral Tablet 10/09[facility] Hydrochlorothiazide 25 MG Oral [facility]t [facility] K[facility]Con M20 20 MEQ Oral Tablet Extended Release 10/09/2020 [facility] Losartan Potassium 100 MG Oral Tablet 10/09/2020 12:00:00 AM EDT [facility]) Metformin hydrochloride 500 MG Oral Tablet 10/09/2020 12:00:00 AM E [facility]) Simvastatin 80 MG Oral Tablet 10/09/2020 12:00:00 AM [facility]) Fenofibrate 48 MG Oral Tablet 08/07/2020 12:00:00 AM [facility]) Klor-Con M20 20 MEQ Oral Tablet Extended Release 07/14/2020 [facility] Losartan Potassium 100 MG Oral Tablet 07/14/2020 12:00:00 AM [facility]) Metformin hydrochloride 500 MG Oral Tablet 07/14/2020 12:00:00 AM E [facility]) Esomeprazole 40 MG Delayed Release Oral Capsule [Nexiu m] 07/14/2020 12:00:00 AM [facility] ([facility]) Simvastatin 80 MG Oral Tablet 07/14/2020 12:00:00 AM T [facility]) Atenolol 50 MG Oral Tablet [Tenormin] 07/14/2020 [facility] Ergocalciferol [id number] UNT Oral Capsule [Drisdol] 07/14/2020 [facility] Hydrochlorothiazide 25 MG Oral Tablet 07/14/2020 12:00:00 AM [facility]) Accu-Chek Yi Plus In Vitro Strip 07/14/2020 [facility] Ergocalciferol [id number] UNT Oral Capsule [Drisdol] 07/14/2020 12:00:00 AM EDT [facility] ([facility]) Accu-Chek Soft Touch Lancets Miscellaneous 07/14/2020 12:00:00 AM E DT [facility] ([facility]) Fenofibrate 48 MG Oral Tablet 07/14/2020 12:00:00 AM EDT [facility] ([facility]) SM Aspirin Adult Low Strength 81 MG Oral Tablet Delaye d Release 07/10/2020 12:00:00 AM [facility] ([facility]) Ergocalciferol [id number] UNT Oral Capsule [Drisdol] 2020 12:00:00 AM [facility] ([facility]) Aspirin Adult Low Strength 81 MG Oral Tablet Delayed R elease 2020 12:00:00 AM [facility] ([facility]) Fenofibrate 48 MG Oral Tablet 04/22/2020 12:00:00 AM [facility] ([facility]) Hydrochlorothiazide 25 MG Oral Tablet 04/16/2020 12:00:00 AM [facility]) Klor-Con M20 20 MEQ Oral Tablet Extended Release 04/16/2020 12:00:0 0 AM [facility] ([facility]) Losartan Potassium 100 MG Oral Tablet 04/16/2020 12:00:00 AM [facility] ([facility]) Metformin hydrochloride 500 MG Oral Tablet 04/16/2020 12:00:[address] [facility] ([facility]) Esomeprazole 40 MG Delayed Release Oral Capsule [Nexiu m] 04/16/2020 12:00:00 AM [facility] ([facility]) Simvastatin 80 MG Oral Tablet 04/16/2020 12:00:00 AM [facility] ([facility]) Atenolol 50 MG Oral Tablet [Tenormin] 04/16/2020 12[facility]00:[facility] Fenofibrate 48 MG Oral Tablet [Tricor] 04/16/2020 12:00:00 AM [facility] ([facility]) Aspirin Adult Low Strength 81 MG Oral Tablet Delayed R elease 04/16/2020 12:00:00 AM [facility] ([facility]) Ergocalciferol [id number] UNT Oral Capsule [Drisdol] 04/16/2020 12:00:00 AM [facility] ([facility]) Fenofibrate 48 MG Oral Tablet 01/02/2020 12:00:[address] [facility] Losartan Potassium 100 MG Oral Tablet 01/02/2020 12:00:[address] [facility] Ergocalciferol [id number] UNT Oral Capsule [Drisdol] 01/01/2020 12:00:00 AM [facility]) Accu-Chek Yi Plus In Vitro Strip 01/01/2020 12:00:00 AM [facility] ([facility]) Aspirin 81 MG Delayed Release Oral Tablet [Ecotrin] 01/01/20 20 12:00:00 AM [facility] ([facility]) Hydrochlorothiazide 25 MG Oral Tablet 01/01/2020 12:00:00 AM [facility]) Klor-Con M20 20 MEQ Oral Tablet Extended Release 01/01/2020 12:00:0 0 AM [facility] ([facility]) Losartan Potassium 100 MG Oral Tablet 01/01/2020 12:00:00 AM [facility] ([facility]) Metformin hydrochloride 500 MG Oral Tablet 01/01/2020 12:00:[address] [facility] ([facility]) Esomeprazole 40 MG Delayed Release Oral Capsule [Nexiu m] 01/01/2020 12:00:00 AM [facility] ([facility]) Simvastatin 80 MG Oral Tablet 01/01/2020 12:00:00 AM [facility] ([facility]) Fenofibrate 48 MG Oral Tablet [Tricor] 01/01/2020 12:00:00 AM [facility] ([facility]) Atenolol 50 MG Oral Tablet [Tenormin] 01/01/2020 12:00:00 AM EST [facility] ([facility]) Metformin hydrochloride 500 MG Oral Tablet 11/15/2019 12:00:00 AM E [facility] ([facility]) Losartan Potassium 100 MG Oral Tablet 10/18/2019 12:00:00 AM EDT [facility]) Accu-Chek Soft Touch Lancets Miscellaneous 10/02/2019 12:00:00 AM E [facility] ([facility]) Ergocalciferol [id number] UNT Oral Capsule [Drisdol] 10/02/2019 12:00:00 AM EDT [facility]) Hydrochlorothiazide 25 MG Oral Tablet 10/02/2019 12:00:00 AM EDT [facility]) Klor-Con M20 20 MEQ Oral Tablet Extended Release 10/02/2019 12:00:0 0 AM EDT [facility]) Metformin hydrochloride 500 MG Oral Tablet 10/02/2019 12:00:00 AM E [facility] ([facility]) Esomeprazole 40 MG Delayed Release Oral Capsule [Nexiu m] 10/02/2019 12:00:00 AM EDT [facility]) Simvastatin 80 MG Oral Tablet 10/02/2019 12:00:00 AM EDT [facility]) Atenolol 50 MG Oral Tablet [Tenormin] 10/02/2019 12:00:00 AM EDT [facility]) Fenofibrate 48 MG Oral Tablet [Tricor] 10/02/2019 12:00:00 AM EDT [facility]) Accu-Chek Yi Plus In Vitro Strip 09/04/2019 12:00:00 AM EDT [facility]) Aspirin 81 MG Delayed Release Oral Tablet [Ecotrin] 08/15/19 20 12:00:00 AM EDT [facility]) Losartan Potassium [address] [facility] Fenofibrate [address] [facility]
[2021-01-01] MEDS ORDERED: ASPIRIN 81 MG CHEW TABLET PO ONE (12:40)
[2021-01-01 13:19] LABS: BASO % 0.2 % (0.0-1.0); EOS # 0.1 10^3/uL (0.0-0.5); HEMOGLOBIN 11.3 g/dl (13.5-17.5); LYMPH # 0.2 10^3/uL (1.5-5.0); LYMPH % 3.1 % (24.0-44.0); MEAN CORPUSCULAR HEMOGLOBIN 29.4 pg (27.0-33.0); MEAN CORPUSCULAR HGB CONC 34.2 g/dl (32.0-36.5); MEAN CORPUSCULAR VOLUME 85.9 fl (80.0-96.0); MONO # 0.4 10^3/uL (0.0-0.8); MONO % 6.6 % (2.0-8.0); NEUTROPHILS # 5.1 10^3/uL (1.5-8.5); NEUTROPHILS % 88.8 % (36.0-66.0); PLATELET COUNT, AUTOMATED 179 10^3/uL (150-450); RED BLOOD COUNT 3.84 10^6/uL (4.30-6.10); WHITE BLOOD COUNT 5.7 10^3/uL (4.0-10.0)
--- NOTE | 2021-01-01 13:26 | REP ---
INDICATION: DYSPNEA/COUGH. COMPARISON: 12/16/2020 also portable TECHNIQUE: Portable FINDINGS: The technique utilized in obtaining the radiograph has magnified the cardiac silhouette and accentuated the interstitial markings. The superior mediastinal structures are midline. The cardiac silhouette is unremarkable in size, shape, and position. The diaphragmatic surfaces of the lungs are regular, and the costophrenic angles are clear. The pulmonary robertson are clear. The imaged osseous structures are intact. IMPRESSION: There is no acute cardiopulmonary disease. <Electronically signed by Max Marie > 01/01/21 [id number]
[2021-01-01 13:32] LABS: INR 1.13; PROTHROMBIN TIME 14.9 SECONDS (12.7-14.5)
[2021-01-01 13:33] LABS: ABG BASE EXCESS 0.6 (-2.0-2.0); ABG HCO3 23.6 MEQ/L (22.0-26.0); ABG O2 SATURATION 97.3 % (95.0-99.0); ABG PARTIAL PRESSURE CO2 32.3 mmHg (35.0-45.0); ABG PARTIAL PRESSURE O2 94.6 mmHg (75.0-100.0); ABG TOTAL CO2 24.6 MEQ/L (23.0-31.0); ABG pH (ARTERIAL) 7.481 UNITS (7.350-7.450)
[2021-01-01 13:42] LABS: RSV AMPLIFICATION NEGATIVE (NEGATIVE)
[2021-01-01 14:15] LABS: BLOOD UREA NITROGEN 19 MG/DL (7-18); CREATININE FOR GFR 1.24 MG/DL (0.70-1.30); GLOMERULAR FILTRATION RATE 59.7 (>35); GLUCOSE, FASTING 160 MG/DL (70-100)
[2021-01-01 14:16] LABS: CARBON DIOXIDE LEVEL 27 mmol/L (20-29); CHLORIDE LEVEL 101 MEQ/L (98-107); POTASSIUM SERUM 3.7 MEQ/L (3.5-5.1); SODIUM LEVEL 136 MEQ/L (136-145)
[2021-01-01 14:17] LABS: CPK CREATINE PHOSPHOKINASE 47 U/L (39-308); MB/CK RELATIVE INDEX 2.12 (< OR =4)
[2021-01-01 14:18] LABS: CK-MB VALUE MASS < 1.0 NG/ML (<3.6); NT-PRO BNP 302 PG/ML (<450); TROPONIN I < 0.02 NG/ML (< 0.10)
--- OUTSIDE RECORDS SUMMARY | 2021-01-01 14:24 | CCD ---
Author Author [facility] Organization [facility] Address Unknown Phone Unavailable Care Team Providers Care Machine Wood Sander Name Role Phone Alphonso Valdez MD Unavailable [...] Alphonso Maynard MD Unavailable Unavailable Courtney, Alphonso Manyard MD Unavailable Unavailable Courtney, Alphonso Maynard MD [...] Maynard MD Unavailable Unavailable Siobhan, N Armen CARDIAC SPECIALIST Unavailable Unavailable [place], N Armen CARDIAC SPECIALIST Unavailable Unavailable [place], N Armen CARDIAC SPECIALIST Unavailable Unavailable [place], N Armen CARDIAC SPECIALIST Unavailable Unavailable Siobhan, N Armen CARDIAC SPECIALIST Unavailable Unavailable Siobhan, N Armen CARDIAC SPECIALIST Unavailable Unavailable [place], N Armen CARDIAC SPECIALIST Unavailable Unavailable Siobhan, N Armen CARDIAC SPECIALIST Unavailable Unavailable [place], N Armen CARDIAC SPECIALIST Unavailable Unavailable [place], N Armen CARDIAC SPECIALIST Unavailable Unavailable [place], N Armen CARDIAC SPECIALIST Unavailable Unavailable Siobhan, N Armen CARDIAC SPECIALIST Unavailable Unavailable [place], N Armen CARDIAC SPECIALIST Unavailable Unavailable [place], N Armen CARDIAC SPECIALIST Unavailable Unavailable [place], N Armen CARDIAC SPECIALIST Unavailable Unavailable [place], N Armen CARDIAC SPECIALIST Unavailable Unavailable [place], N Armen CARDIAC SPECIALIST Unavailable Unavailable [place], N Armen CARDIAC SPECIALIST Unavailable Unavailable [place], N Armen CARDIAC SPECIALIST Unavailable Unavailable [place], N Armen CARDIAC SPECIALIST Unavailable Unavailable Siobhan, N Armen CARDIAC SPECIALIST Unavailable Unavailable [place], N Armen CARDIAC SPECIALIST Unavailable Unavailable [place], N Armen CARDIAC SPECIALIST Unavailable Unavailable Siobhan, N Armen CARDIAC SPECIALIST Unavailable Unavailable [place], N Armen CARDIAC SPECIALIST Unavailable Unavailable [place], N Armen CARDIAC SPECIALIST Unavailable Unavailable [place], N Armen CARDIAC SPECIALIST Unavailable Unavailable Siobhan, N Armen CARDIAC SPECIALIST Unavailable Unavailable Siobhan, N Armen CARDIAC SPECIALIST Unavailable Unavailable Siobhan, N Armen CARDIAC SPECIALIST Unavailable Unavailable Siobhan, N Armen CARDIAC SPECIALIST Unavailable Unavailable [place], N Armen CARDIAC SPECIALIST Unavailable Unavailable [place], N Armen CARDIAC SPECIALIST Unavailable Unavailable Gonzalo, Mariae Raleigh CARDIAC SPECIALIST Unavailable Unavailable Gonzalo, Mariae Kenna CARDIAC SPECIALIST Unavailable Unavailable Gonzalo, Mariae Kenna CARDIAC SPECIALIST Unavailable Unavailable Gonzalo, Mariae Raleigh CARDIAC SPECIALIST Unavailable Unavailable Gonzalo, Mariae Raleigh CARDIAC SPECIALIST Unavailable Unavailable [place], Mariae Raleigh CARDIAC SPECIALIST Unavailable Unavailable Gonzalo, Mariae Raleigh CARDIAC SPECIALIST Unavailable Unavailable [place], Mariae Raleigh CARDIAC SPECIALIST Unavailable Unavailable [place], Mariae Raleigh CARDIAC SPECIALIST Unavailable Unavailable Gonzalo, Mariae Raleigh CARDIAC SPECIALIST Unavailable Unavailable [place], Mariae Raleigh CARDIAC SPECIALIST Unavailable Unavailable [place], Mariae Kenna CARDIAC SPECIALIST Unavailable Unavailable [place], Mariae Kenna CARDIAC SPECIALIST Unavailable Unavailable [place], Mariae Raleigh CARDIAC SPECIALIST Unavailable Unavailable [place], Mariae Raleigh CARDIAC SPECIALIST Unavailable Unavailable [place], Mariae Raleigh CARDIAC SPECIALIST Unavailable Unavailable Gonzalo, Cisco Raleigh CARDIAC SPECIALIST Unavailable Unavailable Courtney, Alphonso Maynard MD Unavailable [...] by Article 27-F of the [facility] Public Health law. If you continue you may have access to information: Regarding HIV / AIDS; Provided by facilities licensed or operated by the [facility] Office of Mental Health; or Provided by the [facility] Office for People With Developmental Disabilities. If such information is present, then the following [facility] mandated warning applies: This information [...] law may result in a fine or detention sentence or both. A general authorization for the release of medical or other information is NOT sufficient authorization for further disc losure. Allergies and Adverse Reactions Type Description Substance Reaction Status Data Source(s ) No Known Drug Allergies No Known Drug Allergies [facility] Family History Family Member Name Family Member Gender Family Member Status Date o f Status Description Data Source(s) Unknown Unknown Problem [facility] ([facility], ) Encounters Encounter Providers Location Date Indications Data Source(s ) Outpatient Attender: Armen Mccann NP [email or web address] [id number] 12:00:00 AM EST - 12/29/2020 01:21:[address] [facility] Outpatient<td ID="encounterTypeDescripti onID0">TRANSITIONAL CARE MANAGEMENT</td><td>Malaika Valdez MD</td><td>Family [facility]</td><td>12/22/2020</td><td>10:24AM</td><td>11/24/2020 11:59PM</td><td><content ID="encounterDiagnosisID0-0">Esophagitis</content>, <content ID="encounterDiagnosisID0-1">Acute Duodenitis</content>, <content ID="encounterDiagnosisID0-2">Anemia Normochromic, Normocytic</content>, <content ID="encounterDiagnosisID0-3">Essential Hypertension Benign</content>, <content ID="encounterDiagnosisID0-4">Hyperlipidemia</content>, <content ID="encounterDiagnosisID0-5">Diabetes Mellitus Type 2 in Obese</content>, <content ID="encounterDiagnosisID0-6">Coronary Artery Disease</content>, <content ID="encounterDiagnosisID0-7">Chronic Obstructive Pulmonary Disease</content></td> Attender: Malaika Valdez MD [facility] 12/22/2020 10:24:00 AM EDT - 11/24/2020 11:59:00 PM ED T Coronary Artery DiseaseDiabetes Mellitus Type 2 in ObeseHyperlipidemiaAnemia Normochromic, NormocyticAcute DuodenitisEsophagitisChronic Obstructive Pulmonary DiseaseEssential Hypertension Benign [place] ([facility]) Coronary Artery Disease Diabetes Mellitus Type 2 in Obese Hyperlipidemia Anemia Normochromic, Normocytic Acute Duodenitis Esophagitis Chronic Obstructive Pulmonary Disease Essential Hypertension Benign Emergency Attender: RODRIGUEZ FISCHER MDConsultant: Giles Valdez MD 12/13/2020 07:59:00 AM EDT - 12/13/2020 10:50:00 AM EDT [facility] Patient discharged. <td ID="encounterTypeDescriptionID1">HOS P I/P F/U</td><td>Kenna Sánchez NP</td><td>[facility]</td><td>11/24/2020</td><td>12:59PM</td><td>1:49PM</td><td><content ID="encounterDiagnosisID1-0">Duodenitis</content>, <content ID="encounterDiagnosisID1-1">Essential Hypertension Benign</content></td>Outpatient Attender: Kenna Sánchez NP [facility] 11/24/2020 12:59:00 PM EDT - 11/24/2020 01:49:00 PM ED T DuodenitisEssential Hypertension Benign [place] ([facility]) Duodenitis Essential Hypertension Benign <td ID="encounterTypeDescriptionID3">STA NDARD OV</td><td>Kenna Sánchez NP</td><td>[facility],</td><td>10/09/2020</td><td>8:39AM</td><td>9:30AM</td><td><content ID="encounterDiagnosisID3-0">Essential Hypertension Benign</content>, <content ID="encounterDiagnosisID3-1">Diabetes Mellitus Type 2 Without Complication</content>, <content ID="encounterDiagnosisID3- 2">Hyperlipidemia</content>, <content ID="encounterDiagnosisID3-3">Gerd</content></td>Outpatient Attender: Kenna Sánchez NP [facility], 10/09/2020 08:39:00 AM EDT - 10/09/2020 09:30:00 AM EDT HyperlipidemiaDiabetes Mellitus Type 2 W ithout ComplicationHyperlipidemiaDiabetes Mellitus Type 2 Without ComplicationEssential Hypertension BenignEssential Hypertension BenignGerdGerd [place] ([facility]) Hyperlipidemia Diabetes Mellitus Type 2 Without Complic ation Hyperlipidemia Diabetes Mellitus Type 2 Without Complic ation Essential Hypertension Benign Essential Hypertension Benign Gerd Gerd Outpatient<td ID="encounterTypeDescripti onID2">RX UPDATE</td><td>Kenna Sánchez NP</td><td>[facility],</td><td>11/18/2020</td><td>10/09/2020 8:17AM</td><td>10/09/2020 11:59PM</td><td></td> Attender: Kenna Sánchez NP [facility], 10/09/2020 08:17:00 AM EDT - 10/09/2020 11:59:00 PM EDT [place] ([facility]) Outpatient Attender: Armen Mccann NP [email or web address] [id number] 12:00:00 AM EDT - 08/18/2020 01:37:[address] [facility] Outpatient<td ID="encounterTypeDescripti onID4">STANDARD OV</td><td>Kenna Sánchez NP</td><td>[facility]</td><td>07/14/2020</td><td>9:05AM</td><td>9:53AM</td><td><content ID="encounterDiagnosisID4-0">Diabetes Mellitus Type 2</content>, <content ID="encounterDiagnosisID4-1">Essential Hypertension Benign</content>, <content ID="encounterDiagnosisID4-2">Hyperlipidemia</content>, <content ID="encounterDiagnosisID4-3">Gerd</content></td> Attender: Kenna Sánchez NP [facility], 07/14/2020 09:05:00 AM EDT - 07/14/2020 09:53:00 AM EDT HyperlipidemiaDiabetes Mellitus Type 2Hy perlipidemiaDiabetes Mellitus Type 2HyperlipidemiaDiabetes Mellitus Type 2Essential Hypertension BenignEssential Hypertension BenignEssential Hypertension BenignGerdGerEn[facility] [place] [facility] Hyperlipidemia Diabetes Mellitus Type 2 Hyperlipidemia Diabetes Mellitus Type 2 Hyperlipidemia Diabetes Mellitus Type 2 Essential Hypertension Benign Essential Hypertension Benign Essential Hypertension Benign Gerd Gerd Gerd <td ID="encounterTypeDescriptionID5">E-V ISIT E/M</td><td>Kenna Sánchez NP</td><td>[facility],</td><td>04/16/2020</td><td>8:49AM</td><td>11:43AM</td><td><content ID="encounterDiagnosisID5-0">Hyperhidrosis Focal</content>, <content ID="encounterDiagnosisID5-1">Diabetes Mellitus Type 2</content>, <content ID="encounterDiagnosisID5-2">Essential Hypertension Benign</content>, <content ID="encounterDiagnosisID5-3">Hyperlipidemia</content>, <content ID="encounterDiagnosisID5-4">Vitamin D Deficiency</content></td>Outpatient Attender: Kenna Sánchez NP [facility] 04/16/2020 08:49:00 AM EST - 04/16/2020 11:43:00 AM EST Vitamin D DeficiencyHyperlipidemiaDiabet es Mellitus Type 2Hyperhidrosis FocalVitamin D DeficiencyHyperlipidemiaDiabetes Mellitus Type 2Hyperhidrosis FocalVitamin D DeficiencyHyperlipidemiaDiabetes Me llitus Type 2Hyperhidrosis FocalVitamin D DeficiencyHyperlipidemiaDiabetes Mellitus Type 2Hyperhidrosis FocalEssential Hypertension BenignEssential Hypertension BenignEssential Hypertension BenignEssential Hypertension Benign [place] ([facility]) Vitamin D Deficiency Hyperlipidemia Diabetes Mellitus Type 2 Hyperhidrosis Focal Vitamin D Deficiency Hyperlipidemia Diabetes Mellitus Type 2 Hyperhidrosis Focal Vitamin D Deficiency Hyperlipidemia Diabetes Mellitus Type 2 Hyperhidrosis Focal Vitamin D Deficiency Hyperlipidemia Diabetes Mellitus Type 2 Hyperhidrosis Focal Essential Hypertension Benign Essential Hypertension Benign Essential Hypertension Benign Essential Hypertension Benign Outpatient Attender: Armen Mccann NP [email or web address] [id number] 12:00:00 AM EST - 02/12/2020 01:54:[address] [facility] <td ID="encounterTypeDescriptionID6">STA NDARD OV</td><td>Kenna Sánchez NP</td><td>[facility],</td><td>01/01/2020</td><td>12:27PM</td><td>1:59PM</td><td><content ID="encounterDiagnosisID6-0">Hyperhidrosis</content>, <content ID="encounterDiagnosisID6-1">Secondary Hypertension Benign</content>, <content ID="encounterDiagnosisID6-2">Diabetes Mellitus Type 2 with Complication</content></td>Outpatient Attender: Kenna Sánchez NP [facility], 01/01/2020 12:27:00 PM EST - 01/01/2020 01:59:00 PM ES T Diabetes Mellitus Type 2 with ComplicationSecondary Hypertension BenignHyperhidrosisDiabetes Mellitus Type 2 with ComplicationSecondary Hypertension BenignHyperhidrosisDiabetes Mellitus Type 2 with C omplicationSecondary Hypertension BenignHyperhidrosisDiabetes Mellitus Type 2 with ComplicationSecondary Hypertension BenignHyperhidrosisDiabetes Mellitus Type 2 with ComplicationSecondary Hypertension BenignHyperhidrosis [facility] ([facility]) Diabetes Mellitus Type 2 with Complicati [...] Date Status Description Data Source(s) COVID-19 VACCINE [employer] 05/21/2020 12:00:00 AM EDT completed [facility] Vaccine Series Complete: YESThis Data wa s Submitted to [facility] Via [employer]. COVID-19 VACCINE [employer] 04/30/2020 12:00:00 AM EST completed [facility] Vaccine Series Complete: NOThis Data was Submitted to [facility] Via [employer]. Medications Medication Brand Name Start Date Product [...] AT BEDTIME ON EMPTY STOMACH SOLD: 12/22/2020 [facility] 1 billion cell- 250 mg 12/19/2020 12:00:00 AM EDT tablet 28 TAKE ONE TABLET BY MOUTH WITH MEALS / AT BEDTIME DIRECTED TAKE ONE TABLET BY MOUTH WITH MEALS / AT BEDTIME DIRECTED SOLD: 12/22/2020 [facility] pantoprazole 40 MG Delayed Release Oral Tablet PANTOPRAZOLE SODIUM 12/15/2020 12:00:00 AM EDT tablet,delayed release (DR/EC) 30 T JESENIA ONE TABLET BY MOUTH EVERY DAY TAKE ONE TABLET BY MOUTH EVERY DAY SOLD: 12/16/2020 [facility] pantoprazole 40 MG Delayed Release Oral Tablet Pantoprazole Sodium 40 MG Oral Tablet Delayed Release Pantoprazole Sodium 40 MG Oral Tablet Delayed Release 12/15/2020 12:00:00 AM EDT active pantoprazole 40 MG Delayed Release Oral Tablet [place] ([facility]) 500 mg 12/11/2020 12:00:00 AM EDT tablet 180 TAKE ONE TABLET BY MOUTH TWO TIMES A DAY TAKE ONE TABLET BY MOUTH TWO TIMES A DAY SOLD: 12/11/2020 [facility] pantoprazole 40 MG Delayed Release Oral Tablet Pantoprazole Sodium 40 MG Oral Tablet Delayed Release Pantoprazole Sodium 40 MG Oral Tablet Delayed Release 12/11/2020 12:00:00 AM EDT aborted pantoprazole 40 MG Delayed Release Oral Tablet [facility] ([facility]) 1 gram 12/06/2020 12:00:00 AM EDT [...] EDT active amlodipine 5 MG Oral Tablet [facility] Sucralfate 1000 MG Oral Tablet Sucralfate 1 GM Oral Ta blet Sucralfate 1 GM Oral Tablet 11/24/2020 12:00:00 AM EDT active sucralfate 1000 MG Oral Tablet [facility] ([facility]) 0.004 % 11/19/2020 12:00:00 AM EDT drops 5 INSTILL 1 DROP IN EACH EYE EVERY EVENING INSTILL 1 DROP IN EACH EYE EVERY EVENING SOLD: 11/20/2020 [facility] Metoclopramide 10 MG Oral Tablet [Reglan] Reglan 10 MG Oral Tablet Reglan 10 MG Oral Tablet 11/18/2020 12:00:00 AM EDT active metoclopramide 10 MG Oral Tablet [Reglan] [facility]) pantoprazole 40 MG Delayed Release Oral Tablet Pantoprazole Sodium 40 MG Oral Tablet Delayed Release Pantoprazole Sodium 40 MG Oral Tablet Delayed Release 11/18/2020 12:00:00 AM EDT aborted pantoprazole 40 MG Delayed Release Oral Tablet [facility] ([facility]) 1 gram 11/13/2020 12:00:00 AM EDT [...] BY MOUTH TWICE A DAY SOLD: 11/13/2020 [employer] Fenofibrate 48 MG Oral Tablet FENOFIBRATE NANOCRYSTALLIZED [...] TEST TWO TIMES A DAY SOLD: 12/16/2020 [facility] Accu-Chek Yi Plus In Vitro Strip Accu-Chek Yi Plus In Vitro Strip 10/23/2020 12:00:00 AM EDT active Accu-Chek Yi Plus [facility] ([facility]) Klor-Con M20 20 MEQ Oral Tablet Extended Release Klor- Con M20 20 MEQ Oral Tablet Extended Release 10/09/2020 12:00:00 AM EDT active Microencapsulated potassium chloride 20 MEQ Extended Release Oral Tablet [Klor-Con] [facility] ([facility]) 1,250 mcg (50,000 unit) 10/09/2020 12:00:00 AM EDT capsule 2 TAKE ONE CAPSULE BY MOUTH EVERY 2 WEEKS TAKE ONE CAPSULE BY MOUTH EVERY 2 WEEKS SOLD: 12/04/2020 [facility] Losartan Potassium 100 MG Oral Tablet Losartan Potassium 100 MG Oral Tablet 10/09/2020 12:00:00 AM EDT 1 active losartan potassium 100 MG Oral Tablet [facility] ([facility]) 81 mg 10/09/2020 12:00:00 AM EDT [...] metformin hydrochloride 500 MG Oral Tablet [facility] ([facility]) 40 mg 10/09/2020 12:00:00 AM EDT capsule,delayed release (DR/EC) 90 TAKE ONE CAPSULE BY MOUTH EVERY MORNING TAKE ONE CAPSULE BY MOUTH EVERY MORNING SOLD: 10/09/2020 [facility] Esomeprazole 40 MG Delayed Release Oral Capsule [Nexium] NexIUM 40 MG Oral Capsule Delayed Release NexIUM 40 MG Oral Capsule Delayed Release 10/09/2020 12:00:00 AM EDT aborted esomeprazole 40 MG Delayed Release Oral Capsule [Nexium] [facility]) LANCETS 10/09/2020 12:00:00 AM EDT misc 100 TEST TWO TIMES A DAY TEST TWO TIMES A DAY SOLD: 10/09/2020 [facility] 25 mg 10/09/2020 12:00:00 AM EDT tablet 30 TAKE ONE TABLET BY MOUTH ONCE DAILY TAKE ONE TABLET BY MOUTH ONCE DAILY SOLD: 10/09/2020 [facility] Simvastatin 80 MG Oral Tablet Simvastatin 80 MG Oral Tablet 10/09/2020 12:00:00 AM EDT active simvastatin 80 MG Oral Tablet [facility]) 50 mg 10/09/2020 12:00:00 AM EDT tablet 180 TAKE ONE TABLET BY MOUTH TWO TIMES A DAY TAKE ONE TABLET BY MOUTH TWO TIMES A DAY SOLD: 10/09/2020 [facility] Accu-Chek Soft Touch Lancets Miscellaneous Accu-Chek S oft Touch Lancets Miscellaneous 10/09/2020 12:00:00 AM EDT comp leted Accu-Chek Soft Touch Lancets [facility] ([facility]) 1,250 mcg (50,000 unit) 10/09/2020 12:00:00 AM EDT capsule 2 TAKE ONE CAPSULE BY MOUTH EVERY 2 WEEKS TAKE ONE CAPSULE BY MOUTH EVERY 2 WEEKS SOLD: 10/09/2020 [facility] Ergocalciferol 97657 UNT Oral Capsule [D risdol] Drisdol 1.25 MG (61120 UT) Oral Capsule Drisdol 1.25 MG (34200 UT) Oral Capsule 10/09/2020 12:00:00 AM EDT active ergocalciferol 1.25 MG Oral Capsule [Drisdol] [place] ([facility]) Fenofibrate 48 MG Oral Tablet Fenofibrate 48 MG Oral Tablet 10/09/2020 12:00:00 AM EDT active fenofibrate 48 MG Oral Tablet [facility]) 25 mg 10/09/2020 12:00:00 AM EDT tablet 30 TAKE ONE TABLET BY MOUTH ONCE DAILY TAKE ONE TABLET BY MOUTH ONCE DAILY SOLD: 11/06/2020 [facility] Hydrochlorothiazide 25 MG Oral Tablet hydroCHLOROthiaz ruth ann 25 MG Oral Tablet hydroCHLOROthiazide 25 MG Oral Tablet 10/09/2020 12:00:00 AM EDT active hydrochlorothiazide 25 MG Oral T ablet [facility] ([facility]) 25 mg 10/09/2020 12:00:00 AM EDT [...] EDT active SM Aspirin Adult Low Strength [facility] ([facility]) Atenolol 50 MG Oral Tablet [Tenormin] Tenormin 50 MG O ral Tablet Tenormin 50 MG Oral Tablet 10/09/2020 12:00:00 AM EDT active atenolol 50 MG Oral Tablet [Tenormin] [facility] ([facility]) 80 mg 10/09/2020 12:00:00 AM EDT [...] aborted fenofibrate 48 M G Oral Tablet [place] ([facility]) Fenofibrate 48 MG Oral Tablet FENOFIBRATE [...] d atenolol 50 MG Oral Tablet [Tenormin] [facility]) 80 mg 07/14/2020 12:00:00 AM EDT [...] aborted simvastatin 80 M G Oral Tablet [place] ([facility]) Esomeprazole 40 MG Delayed Release Oral Capsule [Nexium] NexIUM 40 MG Oral Capsule Delayed Release NexIUM 40 MG Oral Capsule Delayed Release 07/14/2020 12:00:00 AM EDT aborted esomeprazole 40 MG Delayed Release Oral Capsule [Nexium] [facility]) Ergocalciferol 87981 UNT Oral Capsule [D risdol] Drisdol 1.25 MG (93192 UT) Oral Capsule Drisdol 1.25 MG (14923 UT) Oral Capsule 07/14/2020 12:00:00 AM EDT aborted ergocalciferol 1.25 MG Oral Capsule [Drisdol] [facility] ([facility]) Metformin hydrochloride 500 MG Oral Tablet metFORMIN H Cl 500 MG Oral Tablet metFORMIN HCl 500 MG Oral Tablet 07/14/2020 12:00:00 AM EDT aborted metformin hydrochloride 500 MG Oral Tablet [facility] Losartan Potassium 100 MG Oral Tablet Losartan Potassium 100 MG Oral Tablet 07/14/2020 12:00:00 AM EDT 1 aborted losartan potassium 100 MG Oral Tablet [facility]) 20 mEq 07/14/2020 12:00:00 AM EDT tablet,ER particles/cry stals 30 TAKE ONE TABLET BY MOUTH AT BEDTIME TAKE ONE TABLET BY MOUTH AT BEDTIME SOLD: 07/15/2020 [facility] Klor-Con M20 20 MEQ Oral Tablet Extended Release Klor- Con M20 20 MEQ Oral Tablet Extended Release 07/14/2020 12:00:00 AM EDT aborted Microencapsulated potassium chloride 20 MEQ Extended Release Oral Tablet [Klor-Con] [facility]) 25 mg 07/14/2020 12:00:00 AM EDT [...] aborted hydrochlorothiazide 25 MG Oral T ablet [facility]) Fenofibrate 48 MG Oral Tablet Fenofibrate 48 MG Oral Tablet 07/14/2020 12:00:00 AM EDT aborted fenofibrate 48 M G Oral Tablet [facility] ([facility]) Accu-Chek Soft Touch Lancets Miscellaneous Accu-Chek S oft Touch Lancets Miscellaneous 07/14/2020 12:00:00 AM EDT abor rufino Accu-Chek Soft Touch Lancets [facility]) Accu-Chek Yi Plus In Vitro Strip Accu-Chek Yi Plus In Vitro Strip 07/14/2020 12:00:00 AM EDT completed Accu-Chek Yi Plus [facility] ([facility]) Ergocalciferol 94724 UNT Oral Capsule [D risdol] Drisdol 1.25 MG (01871 UT) Oral Capsule Drisdol 1.25 MG (27933 UT) Oral Capsule 07/14/2020 12:00:00 AM EDT aborted ergocalciferol 1.25 MG Oral Capsule [Drisdol] [facility]) 81 mg 07/11/2020 12:00:00 AM EDT tablet,delayed release (DR/EC) 90 TAKE ONE TABLET BY MOUTH EVERY DAY TAKE ONE TABLET BY MOUTH EVERY DAY SOLD: 07/12/2020 [facility] SM Aspirin Adult Low Strength 81 MG Oral Tablet Delaye d Release SM Aspirin Adult Low Strength 81 MG Oral Tablet Delayed Release 07/10/2020 12:00:00 AM EDT aborted SM Aspirin Adult Low Strength [facility] ([facility]) 20 mEq 06/12/2020 12:00:00 AM EDT [...] AM EST aborted Aspirin Adult Low Strength [facility] ([facility]) Ergocalciferol 20796 UNT Oral Capsule [D risdol] Drisdol 1.25 MG (96632 UT) Oral Capsule Drisdol 1.25 MG (49202 UT) Oral Capsule 2020 12:00:00 AM EST aborted ergocalciferol 1.25 MG Oral Capsule [Drisdol] [facility] ([facility]) Fenofibrate 48 MG Oral Tablet Fenofibrate 48 MG Oral Tablet 04/22/2020 12:00:00 AM EST aborted fenofibrate 48 M G Oral Tablet [facility]) Fenofibrate 48 MG Oral Tablet FENOFIBRATE NANOCRYSTALLIZED 0 04/17/2020 12:00:00 AM EST tablet 30 TAKE ONE TABLET BY MOUTH AT BEDTIME TAKE ONE TABLET BY MOUTH AT BEDTIME SOLD: 06/26/2020 [facility] 80 mg 04/17/2020 12:00:00 [...] aborted simvastatin 80 M G Oral Tablet [facility]) Fenofibrate 48 MG Oral Tablet [Tricor] Tricor 48 MG Or al Tablet Tricor 48 MG Oral Tablet 04/16/2020 12:00:00 AM EST aborte d fenofibrate 48 MG Oral Tablet [Tricor] [facility]) Atenolol 50 MG Oral Tablet [Tenormin] Tenormin 50 MG O ral Tablet Tenormin 50 MG Oral Tablet 04/16/2020 12:00:00 AM EST aborte d atenolol 50 MG Oral Tablet [Tenormin] [facility]) Ergocalciferol 03286 UNT Oral Capsule [D risdol] Drisdol 1.25 MG (22669 UT) Oral Capsule Drisdol 1.25 MG (56895 UT) Oral Capsule 04/16/2020 12:00:00 AM EST aborted ergocalciferol 1.25 MG Oral Capsule [Drisdol] [facility] ([facility]) Aspirin Adult Low Strength 81 MG Oral Tablet Delayed R elease Aspirin Adult Low Strength 81 MG Oral Tablet Delayed Release 04/16/2020 12:00:00 AM EST aborted Aspirin Adult Low Strength [facility] ([facility]) Hydrochlorothiazide 25 MG Oral Tablet hydroCHLOROthiaz ruth ann 25 MG Oral Tablet hydroCHLOROthiazide 25 MG Oral Tablet 04/16/2020 12:00:00 AM EST aborted hydrochlorothiazide 25 MG Oral T ablet [facility] ([facility]) Klor-Con M20 20 MEQ Oral Tablet Extended Release Klor- Con M20 20 MEQ Oral Tablet Extended Release 04/16/2020 12:00:00 AM EST aborted Microencapsulated potassium chloride 20 MEQ Extended Release Oral Tablet [Klor-Con] [facility]) Losartan Potassium 100 MG Oral Tablet Losartan Potassium 100 MG Oral Tablet 04/16/2020 12:00:00 AM EST 1 aborted losartan potassium 100 MG Oral Tablet [facility]) Esomeprazole 40 MG Delayed Release Oral Capsule [Nexium] NexIUM 40 MG Oral Capsule Delayed Release NexIUM 40 MG Oral Capsule Delayed Release 04/16/2020 12:00:00 AM EST aborted esomeprazole 40 MG Delayed Release Oral Capsule [Nexium] [facility] ([facility]) Metformin hydrochloride 500 MG Oral Tablet metFORMIN H Cl 500 MG Oral Tablet metFORMIN HCl 500 MG Oral Tablet 04/16/2020 12:00:00 AM EST aborted metformin hydrochloride 500 MG Oral Tablet [facility] ([facility]) LANCETS 03/22/2020 12:00:00 AM EST misc 100 USE 1 LANCET TO TEST TWICE A DAY USE 1 LANCET TO TEST TWICE A DAY SOLD: 03/26/2020 [employer] BLOOD SUGAR DIAGNOSTIC 01/19/2020 12:00:00 AM EST strip 100 TEST TWO TIMES A DAY TEST TWO TIMES A DAY SOLD: 01/20/2020 [facility] BLOOD SUGAR DIAGNOSTIC 01/19/2020 12:00:00 AM [...] BY MOUTH ONCE DAILY SOLD: 05/28/2020 Favian Mcmillan 48 mg 01/02/2020 12:00:00 AM EST tablet 30 TAKE ONE TABLET BY MOUTH AT BEDTIME TAKE ONE TABLET BY MOUTH AT BEDTIME SOLD: 03/26/2020 [facility] Losartan Potassium 100 MG Oral Tablet losartan (COZAAR ) 100 MG tablet losartan (COZAAR) 100 MG tablet 01/02/2020 12:00:00 AM EST 100 mg Oral active Take 100 mg by mouth daily [facility] Fenofibrate 48 MG Oral Tablet fenofibrate (TRICOR) 48 MG tablet fenofibrate (TRICOR) 48 MG tablet 01/02/2020 12:00:00 AM EST 48 mg Oral active Take 48 mg by mouth daily [facility] Fenofibrate 48 MG Oral Tablet FENOFIBRATE [...] 12:00:00 AM EST aborted Accu-Chek Yi Plus [facility] ([facility]) Aspirin 81 MG Delayed Release Oral Table t [Ecotrin] Ecotrin Low Strength 81 MG Oral Tablet Delayed Release Ecotrin Low Strength 81 MG Oral Tablet D elayed Release 01/01/2020 12:00:00 AM EST aborted aspirin 81 MG Delayed Release Oral Tablet [Ecotrin] [facility]) Ergocalciferol 70704 UNT Oral Capsule [D risdol] Drisdol 1.25 MG (46805 UT) Oral Capsule Drisdol 1.25 MG (32778 UT) Oral Capsule 01/01/2020 12:00:00 AM EST aborted ergocalciferol 1.25 MG Oral Capsule [Drisdol] [facility]) Klor-Con M20 20 MEQ Oral Tablet Extended Release Klor- Con M20 20 MEQ Oral Tablet Extended Release 01/01/2020 12:00:00 AM EST aborted Microencapsulated potassium chloride 20 MEQ Extended Release Oral Tablet [Klor-Con] [facility]) Hydrochlorothiazide 25 MG Oral Tablet hydroCHLOROthiaz ruth ann 25 MG Oral Tablet hydroCHLOROthiazide 25 MG Oral Tablet 01/01/2020 12:00:00 AM EST aborted hydrochlorothiazide 25 MG Oral T ablet [facility]) Losartan Potassium 100 MG Oral Tablet Losartan Potassium 100 MG Oral Tablet 01/01/2020 12:00:00 AM EST 1 aborted losartan potassium 100 MG Oral Tablet [facility]) Simvastatin 80 MG Oral Tablet Simvastatin 80 MG Oral Tablet 01/01/2020 12:00:00 AM EST aborted simvastatin 80 M G Oral Tablet [facility]) Metformin hydrochloride 500 MG Oral Tablet metFORMIN H Cl 500 MG Oral Tablet metFORMIN HCl 500 MG Oral Tablet 01/01/2020 12:00:00 AM EST aborted metformin hydrochloride 500 MG Oral Tablet [facility] ([facility]) Esomeprazole 40 MG Delayed Release Oral Capsule [Nexium] NexIUM 40 MG Oral Capsule Delayed Release NexIUM 40 MG Oral Capsule Delayed Release 01/01/2020 12:00:00 AM EST aborted esomeprazole 40 MG Delayed Release Oral Capsule [Nexium] [facility]) Atenolol 50 MG Oral Tablet [Tenormin] Tenormin 50 MG O ral Tablet Tenormin 50 MG Oral Tablet 01/01/2020 12:00:00 AM EST aborte d atenolol 50 MG Oral Tablet [Tenormin] [facility] ([facility]) Fenofibrate 48 MG Oral Tablet [Tricor] Tricor 48 MG Or al Tablet Tricor 48 MG Oral Tablet 01/01/2020 12:00:00 AM EST aborte d fenofibrate 48 MG Oral Tablet [Tricor] [facility]) Metformin hydrochloride 500 MG Oral Tablet [...] aborted metformin hydrochloride 500 MG Oral Tablet [facility]) Losartan Potassium 100 MG Oral Tablet Losartan Potassium 100 MG Oral Tablet 10/18/2019 12:00:00 AM EDT 1 aborted losartan potassium 100 MG Oral Tablet [facility]) 50 mg 10/10/2019 12:00:00 AM EDT [...] 20 MEQ Extended Release Oral Tablet [Klor-Con] [facility]) Hydrochlorothiazide 25 MG Oral Tablet hydroCHLOROthiaz ruth ann 25 MG Oral Tablet hydroCHLOROthiazide 25 MG Oral Tablet 10/02/2019 12:00:00 AM EDT aborted hydrochlorothiazide 25 MG Oral T ablet [facility] ([facility]) Accu-Chek Soft Touch Lancets Miscellaneous Accu-Chek S oft Touch Lancets Miscellaneous 10/02/2019 12:00:00 AM EDT abor rufino Accu-Chek Soft Touch Lancets [facility] ([facility]) Ergocalciferol 04722 UNT Oral Capsule [D risdol] Drisdol 1.25 MG (88568 UT) Oral Capsule Drisdol 1.25 MG (32009 UT) Oral Capsule 10/02/2019 12:00:00 AM EDT aborted ergocalciferol 1.25 MG Oral Capsule [Drisdol] [facility] ([facility]) Atenolol 50 MG Oral Tablet [Tenormin] Tenormin 50 MG O ral Tablet Tenormin 50 MG Oral Tablet 10/02/2019 12:00:00 AM EDT aborte d atenolol 50 MG Oral Tablet [Tenormin] [facility] ([facility]) Simvastatin 80 MG Oral Tablet Simvastatin 80 MG Oral Tablet 10/02/2019 12:00:00 AM EDT aborted simvastatin 80 M G Oral Tablet [facility] ([facility]) Metformin hydrochloride 500 MG Oral Tablet metFORMIN H Cl 500 MG Oral Tablet metFORMIN HCl 500 MG Oral Tablet 10/02/2019 12:00:00 AM EDT aborted metformin hydrochloride 500 MG Oral Tablet [facility]) Esomeprazole 40 MG Delayed Release Oral Capsule [Nexium] NexIUM 40 MG Oral Capsule Delayed Release NexIUM 40 MG Oral Capsule Delayed Release 10/02/2019 12:00:00 AM EDT aborted esomeprazole 40 MG Delayed Release Oral Capsule [Nexium] [facility]) Fenofibrate 48 MG Oral Tablet [Tricor] Tricor 48 MG Or al Tablet Tricor 48 MG Oral Tablet 10/02/2019 12:00:00 AM EDT aborte d fenofibrate 48 MG Oral Tablet [Tricor] [facility] ([facility]) BLOOD SUGAR DIAGNOSTIC 09/05/2019 12:00:00 AM EDT strip 100 TEST TWO TIMES A DAY TEST TWO TIMES A DAY SOLD: 12/11/2019 [facility] Accu-Chek Yi Plus In Vitro Strip Accu-Chek Yi Plus In Vitro Strip 09/04/2019 12:00:00 AM EDT aborted Accu-Chek Yi Plus [facility] ([facility]) 80 mg 08/17/2019 12:00:00 AM EDT tablet 30 TAKE ONE TABLET BY MOUTH DAILY AT BEDTIME TAKE ONE TABLET BY MOUTH DAILY AT BEDTIME SOLD: 11/13/2019 [facility] 81 mg 08/15/2019 12:00:00 AM EDT [...] Release Oral Tablet [Ecotrin] [facility] ([facility]) Fenofibrate 67 MG Oral Capsule fenofibrate micronized (LOFIBRA) 67 MG capsule fenofibrate micronized (LOFIBRA) 67 MG capsule 48 mg Oral aborted Take 48 mg by mouth every morning before breakfast [facility] Losartan Potassium 25 MG Oral Tablet losartan (COZAAR) 25 MG tablet losartan (COZAAR) 25 MG tablet 50 mg Oral aborted Ta ke 50 mg by mouth daily [facility] Insurance Providers Payer name Policy type / Coverage type Policy ID Covered constitution party ID Covered constitution party's relationship to hung Policy Hung Plan Information Medicare [place] Medicare Primary 0 [id number] Self 0 Medicare [place] Medicare Primary 0 [id number] Self 0 Medicare [place] Medicare Primary 0 [id number] Self 0 Medicare [place] Medicare Primary 0 [id number] Self 0 Medicare [place] Medicare Primary 0 [id number] Self 0 HUMANA PPO [id number] SP [id number] Medicare [place] Medicare Primary 0 [id number] Self 0 MEDICARE [id number] Madeleine [id number] A Medicare [place] Medicare Primary 0 [id number] Self 0 HUMANA PPO [id number] SP [id number] Medicare [place] Medicare Primary 0 [id number] Self 0 MEDICARE [id number] SP [id number] A Medicare [place] Medicare Primary 0 [id number] Self 0 Medicare [place] Medicare Primary 0 [id number] Self 0 MEDICAID [id number] SP [id number] MEDICAID [id number] SP [id number] MEDICAID [id number] SP [id number] MEDICAID [id number] [id number] MEDICAID [id number] Madeleine [id number] [place] [id number] SP [id number] H EMEDNY [id number] SP [id number] MEDICAID [id number] SP [id number] HUMANA MEDICARE [id number] [phone] [id number] [id number] HUMANA MEDICARE [id number] Madeleine [id number] [place] Supplemental Policy 0 [id number] Self 0 Humana Care Plan Other 0 [id number] Self 0 [place] Supplemental Policy 0 [id number] Self 0 Humana Care Plan Other 0 [id number] Self 0 [place] Supplemental Policy 0 [id number] Self 0 Humana Care Plan Other 0 [id number] Self 0 [place] Supplemental Policy 0 [id number] Self 0 Humana Care Plan Other 0 [id number] Self 0 MEDICARE PART A-O/P [id number] 18 [id number] [place] Supplemental Policy 0 [id number] Self 0 Humana Care Plan Other 0 [id number] Self 0 Medicare Part B of [facility] Medicare Primary 0 [id number] Self 0 [place] Supplemental Policy 0 [id number] Self 0 Humana Care Plan Other 0 [id number] Self 0 Medicare Part B of [facility] Medicare Primary 0 [id number] Self 0 [place] Supplemental Policy 0 [id number] Self 0 [place] [id number] 18 [id number] MEDICARE PART A [facility] [id number] 18 [id number] [place] Medicare Primary [id number] Self [id number] [place] Medicare Primary [id number] Self [id number] [place] Supplemental Policy 0 [id number] Self 0 [place] Supplemental Policy 0 [id number] Self 0 [place] Supplemental Policy 0 [id number] Self 0 [facility] ADMIN[facility]ATORS, [facility] [id number] S [id number] MEDICAID M [id number] S [id number] MEDICARE C [id number] S [id number] A [facility] C [id number] S [id number] [place] Supplemental Policy 0 [id number] Self 0 [place] MEDICARE PART B C [id number] S [id number] [place] Supplemental Policy 0 [id number] Self 0 [place] Supplemental Policy 0 [id number] Self 0 [place] Supplemental Policy 0 [id number] Self 0 [place] Supplemental Policy 0 [id number] Self 0 [place] Supplemental Policy 0 [id number] Self 0 MEDICAID - O/P EMERGENCY ROOM [id number] 18 [id number] MEDICARE -O/P [id number] 18 [id number] MEDICAID-O/P RAD [id number] HUMANA GOLD [id number] SP [id number] Medicaid [facility] Supplemental Policy 0 [id number] Self 0 Medicare Part B [facility] [place] Medicare Primary 0 [id number] Self 0 HUMANA GOLD PLUS -O/P [id number] 18 [id number] HUMANA GOLD [id number] SP [id number] [place] Supplemental Policy 0 [id number] Self 0 Humana Care Plan Other 0 [id number] Self 0 [place] Supplemental Policy 0 [id number] Self 0 Humana Care Plan Other 0 [id number] Self 0 [place] Supplemental Policy 0 [id number] Self 0 Humana Care Plan Other 0 [id number] Self 0 [place] Supplemental Policy 0 [id number] Self 0 Humana Care Plan Other 0 [id number] Self 0 [place] Supplemental Policy 0 [id number] Self 0 Humana Care Plan Other 0 [id number] Self 0 MEDICAID-O/P [id number] 18 [id number] MEDICARE PART A-O/P [id number] 18 [id number] [facility] [place] [id number] 18 [id number] HUMANA MEDICARE HMO HM [id number] 18 [id number] Medicaid [facility] Supplemental Policy 0 [id number] Self 0 Humana Care Plan Other 0 [id number] Self 0 [place] Supplemental Policy 0 [id number] Self 0 Humana Care Plan Other 0 [id number] Self 0 Problems, Conditions, and Diagnoses Code Display Name Description Problem Type Effective Dates Data Source(s) Z98.61 Coronary angioplasty status Coronary angioplasty statu s Diagnosis 12/29/2020 12:55:47 PM [facility] I10 Essential (primary) hypertension Essential (primary) h ypertension Diagnosis 12/29/2020 12:55:47 PM [facility] E78.5 Hyperlipidemia, unspecified Hyperlipidemia, unspecifie d Diagnosis 12/29/2020 12:55:47 PM [facility] Z7982 nursing home (current) use of aspirin long term 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 care 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 Diagnosis [facility] Essential (primary) h ypertension Diagnosis [facility] Acute tonsillitis, unspecified Acute tonsillitis, unsp ecified Diagnosis 12/13/2020 07:59:00 AM [facility] J029 Acute pharyngitis, unspecified Acute pharyngitis, unsp ecified Diagnosis 12/13/2020 07:59:00 AM [facility] 705.21 Hyperhidrosis Hyperhidrosis Problem 01/01/2020 12:00:00 AM [facility] ([facility]) 705.21 Hyperhidrosis Hyperhidrosis Problem 01/01/2020 12:00:00 AM [facility] ([facility]) 705.21 Hyperhidrosis Hyperhidrosis Problem 01/01/2020 12:00:00 AM [facility] ([facility]) 705.21 Hyperhidrosis Hyperhidrosis Problem 01/01/2020 12:00:00 AM [facility] ([facility]) 705.21 Hyperhidrosis Hyperhidrosis Problem 01/01/2020 12:00:00 AM EST [facility] ([facility]) Surgeries/Procedures Procedure Description Date Indications Data Source(s) HbA1c (Glycosolated) HbA1c (Glycosolated) 12/22/2020 12:00:00 AM ED [facility] ([facility]) GLUCOSE GLUCOSE 12/22/2020 12:00:00 AM EDT [facility] ([facility]) COLLECTION VENOUS BLOOD VENIPUNCTURE BLOOD DRAW 12/22/2020 12:00: 00 AM EDT [facility] ([facility]) HbA1c (Glycosolated) (waived laboratory) HbA1c (Glycos olated) (waived laboratory) 10/09/2020 12:00:00 AM EDT [facility]) GLUCOSE (waived laboratory) GLUCOSE (waived laboratory) 09/21 12:00:00 AM [facility] ([facility]) COLLECTION VENOUS BLOOD VENIPUNCTURE BLOOD DRAW 10/09/2020 12:00: 00 AM T [facility] ([facility]) HbA1c (Glycosolated) HbA1c (Glycosolated) 10/09/2020 12:00:00 AM ED [facility] ([facility]) HbA1c (Glycosolated) (waived laboratory) HbA1c (Glycos olated) (waived laboratory) 07/14/2020 12:00:00 AM T [facility]) COLLECTION VENOUS BLOOD VENIPUNCTURE BLOOD DRAW 07/14/2020 12:00: 00 AM [facility] ([facility]) HbA1c (Glycosolated) HbA1c (Glycosolated) 07/14/2020 12:00:00 AM ED [facility] ([facility]) ECG ROUTINE ECG W/LEAST 12 LDS W/I&R <td>POCT AMB EKG</td><td>Routine</td><td>02/12/2020 1:41 PM EST</td><td> Coronary angioplasty status</td><td> </td> 02/12/2020 06:41:00 PM EST Coronary angioplasty status [facility] Coronary angioplasty status Results ID Date Data Source [id number] 12/19/2020 07:06:00 AM EDT [facility] ([facility]) Name Value Range Interpretation Code Description Data Dayna rce(s) Supporting Document(s) Reported Physicians See Note Reported Physici ans [facility] ([facility]) Note: Reported Physicians:Ordering: ATUL POP [id number]: Alexi VOulting: Rosa OLIVAmitting: Hien VO To: Hien VO To: SARA OLIVAOCojeff To: Malaika Valdez ID Date Data Source [id number] 12/19/2020 07:06:00 AM EDT [facility] ([facility]) Name Value Range Interpretation Code Description Data Dayna rce(s) Supporting Document(s) GLUCOSE, FASTING 137 MG/DL Above high normal GLUCOSE, FAS TING [facility] ([facility]) BLOOD UREA NITROGEN 12 MG/DL Normal BLOOD UREA NITRO GEN [facility] ([facility]) CREATININE FOR GFR 1.12 MG/DL Normal CREATININE FOR GF R [facility] ([facility]) GLOMERULAR FILTRATION RATE > 60.0 Normal GLOMERULA R FILTRATION RATE [facility] ([facility]) Note: Units are mL/min/1.73 m2 Chroni c Kidney Disease Staging per NKF: Stage I & II GFR >=60 Normal to Mildly Decreased Stage III GFR 30- 59 Moderately Decreased Stage IV GFR 15-29 Severely Decreased Stage V GFR <15 Very Little GFR Left ESRD GFR <15 on AREA [employer]PERATIONS MANAGER SODIUM LEVEL 139 MEQ/L Normal SODIUM LEVEL [facility]) POTASSIUM SERUM 4.3 MEQ/L Normal [facility] CHLORIDE LEVEL 109 MEQ/L Above high normal CHLORIDE LEVEL [facility]) CARBON DIOXIDE LEVEL 24 MEQ/L Normal CARBON DIOXIDE LEVEL [facility]) Anion gap in Body fluid 6 MEQ/L Below low normal ANION GAP [facility]) CALCIUM LEVEL 8.3 MG/DL Below low normal [facility] AST/SGOT 17 U/L Normal AST/SGOT [facility] ([facility]) ALT/SGPT 18 U/L Normal ALT/SGPT [facility] ([facility]) Alkaline phosphatase [Enzymatic activity/volume] in Se rum, Plasma or Blood 37 U/L Below low normal ALKALINE PHOSPHATASE [facility] ( [facility]) BILIRUBIN,TOTAL 0.4 MG/DL Normal BILIRUBIN,TOTAL [facility] ([facility]) TOTAL PROTEIN 5.5 GM/DL Below low normal [facility] Albumin [Mass/volume] in Blood by Bromocresol purple ( BCP) dye binding method 2.9 GM/DL Below low normal ALBUMIN [facility]) ALBUMIN/GLOBULIN RATIO 1.1 Normal ALBUMIN/GLOBU TOVA RATIO [facility]) ID Date Data Source [id number] 12/19/2020 07:06:00 AM EDT [facility] ([facility]) Name Value Range Interpretation Code Description Data Dayna rce(s) Supporting Document(s) Reported Physicians See Note Reported Physici ans [facility] ([facility]) Note: Reported Physicians:Ordering: ATUL POP [id number], JOAN C.Attending: Alexi VOulting: Rosa OLIVAmitting: Hien VO To: Hien VO To: Mana OLIVA To: Malaika Valdez ID Date Data Source [id number] 12/19/2020 07:06:00 AM EDT [facility]) Name Value Range Interpretation Code Description Data Dayna rce(s) Supporting Document(s) LIPASE 390 U/L Normal LIPASE [facility] ([facility]) ID Date Data Source [id number] 12/19/2020 07:06:00 AM EDT [facility]) Name Value Range Interpretation Code Description Data Dayna rce(s) Supporting Document(s) Reported Physicians See Note Reported Physici ans [facility] ([facility]) Note: Reported Physicians:Ordering: ATUL POP [id number] RodrigesAttending: Alexi VOulting: Rosa OLIVAmitting: Hien VO To: Hien VO To: Mana OLIVA To: Malaika Valdez ID Date Data Source [id number] 12/19/2020 07:06:00 AM EDT [facility] ([facility]) Name Value Range Interpretation Code Description Data Dayna rce(s) Supporting Document(s) WHITE BLOOD COUNT 4.4 3/uL Normal WHITE BLOOD COUNT [facility]) RED BLOOD COUNT 2.95 6/uL Below low normal RED BLOOD COUN T [facility]) Hemoglobin [Mass/volume] in Mixed venous blood by Oximetry 9.1 g /dl Below low normal HEMOGLOBIN [facility]) Hematocrit [Pure volume fraction] of Blood by Automated count 25 .7 % Below low normal HEMATOCRIT [facility]) MEAN CORPUSCULAR VOLUME 87.1 fl Normal MEAN CORPUSC ULAR VOLUME [facility]) MEAN CORPUSCULAR HEMOGLOBIN 30.8 pg Normal MEAN COR PUSCULAR HEMOGLOBIN [facility]) MEAN CORPUSCULAR HGB CONC 35.4 g/dl Normal MEAN CORPU SCULAR HGB CONC [facility]) RED CELL DISTRIBUTION WIDTH 13.7 % Normal RED CELL DISTRIBUTION WIDTH [facility]) PLATELET COUNT, AUTOMATED 148 3/uL Below low normal PLAT ELET COUNT, AUTOMATED [facility]) NEUTROPHILS % 71.1 % Above high normal [facility]HILS % [facility] LYMPH % 17.8 % Below low normal LYMPH % [facility]) MONO % 8.1 % Above high normal MONO % [facility]) EOS % 1.8 % Normal EOS % [facility] ([facility]) BASO % 0.5 % Normal BASO % [facility] ([facility]) IMMATURE GRANULOCYTE % 0.7 % Normal IMMATURE GRAN ULOCYTE % [facility] ([facility]) NUCLEATED RED BLOOD CELL % 0.0 % Normal NUCLEATED RED BLOOD CELL % [facility] ([facility]) NEUTROPHILS # 3.2 3/uL Normal NEUTROPHILS # [facility] ([facility]) LYMPH # 0.8 3/uL Below low normal LYMPH # [facility] ([facility]) MONO # 0.4 3/uL Normal MONO # [facility] ([facility]) EOS # 0.1 3/uL Normal EOS # [facility] ([facility]) BASO # 0.0 3/uL Normal BASO # [facility]) ID Date Data Source [id number] 12/18/2020 11:25:00 AM EDT [facility]) Name Value Range Interpretation Code Description Data Dayna rce(s) Supporting Document(s) Reported Physicians See Note Reported Physici ans [facility] ([facility]) Note: Reported Physicians:Ordering: ATUL POP [id number], JOAN C.Attending: Aidee VOing: Rosa OLIVAmitting: Hien VO To: Hien VO To: Mana OLIVA To: Malaika Valdez ID Date Data Source [id number] 12/18/2020 11:25:00 AM EDT [facility] ([facility]) Name Value Range Interpretation Code Description Data Dayna rce(s) Supporting Document(s) BEDSIDE GLUCOSE 128 MG/DL Above high normal BEDSIDE GLUCO SE [facility] ([facility]) ID Date Data Source [id number] 12/18/2020 06:18:00 AM EDT [facility]) Name Value Range Interpretation Code Description Data Dayna rce(s) Supporting Document(s) Reported [facility] Note: Reported Physicians:Ordering: ATUL [id number] RodrigesAttending: Aidee VOing: Rosa OLIVAmitting: Hien VO To: Hien VO To: Mana OLIVA To: Malaika Valdez ID Date Data Source [id number] 12/18/2020 06:18:00 AM EDT [facility]) Name Value Range Interpretation Code Description Data Dayna rce(s) Supporting Document(s) WHITE BLOOD COUNT 6.0 3/uL Normal WHITE BLOOD COUNT [facility] ([facility]) RED BLOOD COUNT 2.99 6/uL Below low normal RED BLOOD COUN T [facility] ([facility]) Hemoglobin [Mass/volume] in Mixed venous blood by Oximetry 9.2 g /dl Below low normal HEMOGLOBIN [facility] ([facility]) Hematocrit [Pure volume fraction] of Blood by Automated count 26 .4 % Below low normal HEMATOCRIT [facility]) MEAN CORPUSCULAR VOLUME 88.3 fl Normal MEAN CORPUSC ULAR VOLUME [facility] ([facility]) MEAN CORPUSCULAR HEMOGLOBIN 30.8 pg Normal MEAN COR PUSCULAR HEMOGLOBIN [facility] ([facility]) MEAN CORPUSCULAR HGB CONC 34.8 g/dl Normal MEAN CORPU SCULAR HGB CONC [facility] ([facility]) RED CELL DISTRIBUTION WIDTH 13.8 % Normal RED CELL DISTRIBUTION WIDTH [facility] ([facility]) PLATELET COUNT, AUTOMATED 144 3/uL Below low normal PLAT ELET COUNT, AUTOMATED [facility] ([facility]) NEUTROPHILS % 70.4 % Above high normal NEUTROPHILS % [facility] LYMPH % 18.1 % Below low normal LYMPH % [facility]) MONO % 8.2 % Above high normal MONO % [facility]) EOS % 2.0 % Normal EOS % [facility]) BASO % 0.3 % Normal BASO % [facility]) IMMATURE GRANULOCYTE % 1.0 % Normal IMMATURE GRAN ULOCYTE % [facility] [facility] NUCLEATED RED BLOOD CELL % 0.0 % Normal NUCLEATED RED BLOOD CELL % [facility]) NEUTROPHILS # 4.2 3/uL Normal NEUTROPHILS # [facility] ([facility]) LYMPH # 1.1 3/uL Below low normal LYMPH # [facility] ([facility]) MONO # 0.5 3/uL Normal MONO # [facility] ([facility]) EOS # 0.1 3/uL Normal EOS # [facility] ([facility]) BASO # 0.0 3/uL Normal BASO # [facility] ([facility]) ID Date Data Source [id number] 12/18/2020 06:18:00 AM EDT [facility] ([facility]) Name Value Range Interpretation Code Description Data Dayna rce(s) Supporting Document(s) Reported Physicians See Note Reported Physici ans [facility]) Note: Reported Physicians:Ordering: ATUL POP [id number], JOAN C.Attending: Aidee VOing: Rosa OLIVAmitting: Hien VO To: Hien VO To: Mana OLIVA To: Malaika Valdez ID Date Data Source [id number] 12/18/2020 06:18:00 AM EDT [facility] [facility]) Name Value Range Interpretation Code Description Data Dayna rce(s) Supporting Document(s) LIPASE 377 U/L Normal LIPASE [facility] ([facility]) ID Date Data Source [id number] 12/18/2020 06:18:00 AM EDT [facility] [facility]) Name Value Range Interpretation Code Description Data Dayna rce(s) Supporting Document(s) Reported Physicians See Note Reported Physici ans [facility] [facility]) Note: Reported Physicians:Ordering: ATUL POP [id number], JOAN C.Attending: Alexi VOulting: Rosa OLIVAmitting: Hien VO To: Hien VO To: Mana OLIVA To: Malaika Valdez ID Date Data Source [id number] 12/18/2020 06:18:00 AM EDT [facility]) Name Value Range Interpretation Code Description Data Dayna rce(s) Supporting Document(s) GLUCOSE, FASTING 133 MG/DL Above high normal GLUCOSE, FAS TING [facility] ([facility]) BLOOD UREA NITROGEN 18 MG/DL Significant change down BLO OD UREA NITROGEN [facility] ([facility]) CREATININE FOR GFR 1.05 MG/DL Normal CREATININE FOR GF R [facility] ([facility]) GLOMERULAR FILTRATION RATE > 60.0 Normal GLOMERULA R FILTRATION RATE [facility] ([facility]) Note: Units are mL/min/1.73 m2 Chroni c Kidney Disease Staging per NKF: Stage I & II GFR >=60 Normal to Mildly Decreased Stage III GFR 30- 59 Moderately Decreased Stage IV GFR 15-29 Severely Decreased Stage V GFR <15 Very Little GFR Left ESRD GFR <15 on AREA OPERATIONS MANAGER SODIUM LEVEL 137 MEQ/L Normal SODIUM LEVEL [facility]) POTASSIUM SERUM 4.2 MEQ/L Normal POTASSIUM SERUM [facility]) CHLORIDE LEVEL 110 MEQ/L Above high normal CHLORIDE LEVEL [facility]) CARBON DIOXIDE LEVEL 25 MEQ/L Normal CARBON DIOXIDE LEVEL [facility] ([facility]) Anion gap in Body fluid 2 MEQ/L Below low normal ANION GAP [facility]) CALCIUM LEVEL 7.9 MG/DL Below low normal CALCIUM LEVEL [facility] ([facility]) AST/SGOT 12 U/L Normal AST/SGOT [facility] ([facility]) ALT/SGPT 19 U/L Normal ALT/SGPT [facility] ([facility]) Alkaline phosphatase [Enzymatic activity/volume] in Se rum, Plasma or Blood 33 U/L Below low normal ALKALINE PHOSPHATASE [facility]) BILIRUBIN,TOTAL 0.5 MG/DL Significant change down BILIRUB IN,TOTAL [facility]) TOTAL PROTEIN 5.2 GM/DL Below low normal TOTAL PROTEIN [facility] ([facility]) Albumin [Mass/volume] in Blood by Bromocresol purple ( BCP) dye binding method 2.9 GM/DL Below low normal ALBUMIN [facility]) ALBUMIN/GLOBULIN RATIO 1.3 Normal ALBUMIN/GLOBU TOVA RATIO [facility]) ID Date Data Source [id number] 12/17/2020 08:30:00 PM EDT [facility] ([facility]) Name Value Range Interpretation Code Description Data Dayna rce(s) Supporting Document(s) Reported Physicians See Note Reported [facility] ([facility]) Note: Reported Physicians:Ordering: ATUL POP [id number], MARGARITA LeAttending: Aidee VOing: Rosa OLIVAmitting: Hien VO To: Hien VO To: Mana OLIVA To: Malaika Valdez ID Date Data Source [id number] 12/17/2020 08:30:00 PM EDT [facility] ([facility]) Name Value Range Interpretation Code Description Data Dayna rce(s) Supporting Document(s) BEDSIDE GLUCOSE 131 MG/DL Above high normal BEDSIDE GLUCO SE [facility] ([facility]) ID Date Data Source [id number] 12/17/2020 05:29:00 PM EDT [facility] ([facility]) Name Value Range Interpretation Code Description Data Dayna rce(s) Supporting Document(s) Reported Physicians See Note Reported [facility] ([facility]) Note: Reported Physicians:Ordering: ATUL POP [id number]: Aidee VOing: Rosa OLIVAmitting: Hien VO To: Hien VO To: SARA OLIVAOCopy To: Malaika Valdez ID Date Data Source [id number] 12/17/2020 05:29:00 PM EDT [facility] ([facility]) Name Value Range Interpretation Code Description Data Dayna rce(s) Supporting Document(s) BEDSIDE GLUCOSE 116 MG/DL Above high normal BEDSIDE GLUCO SE [facility] ([facility]) ID Date Data Source [id number] 12/17/2020 01:47:00 PM EDT [facility] ([facility]) Name Value Range Interpretation Code Description Data Dayna rce(s) Supporting Document(s) Reported Physicians See Note Reported [facility] ([facility]) Note: Reported Physicians:Ordering: ATUL POP [id number]: Aidee VOing: Rosa OLIVAmitting: Hien VO To: Hien VO To: Mana OLIVA To: Malaika Valdez ID Date Data Source [id number] 12/17/2020 01:47:00 PM EDT [facility] ([facility]) Name Value Range Interpretation Code Description Data Dayna rce(s) Supporting Document(s) LACTIC ACID LEVEL, LACTATE 1.9 MMOL/L Normal LACTIC AC ID LEVEL, LACTATE [facility] ([facility]) ID Date Data Source [id number] 12/17/2020 11:59:00 AM EDT [facility] ([facility]) Name Value Range Interpretation Code Description Data Dayna rce(s) Supporting Document(s) Reported Physicians See Note Reported Physici ans [facility] [facility]) Note: Reported Physicians:Ordering: ATUL POP [id number]: Aidee VOing: Vero OLIVAing: Hien VO To: Hien VO To: Mana OLIVA To: Malaika Valdez ID Date Data Source [id number] 12/17/2020 11:59:00 AM EDT [facility] ([facility]) Name Value Range Interpretation Code Description Data Dayna rce(s) Supporting Document(s) BEDSIDE GLUCOSE 109 MG/DL Normal BEDSIDE GLUCOSE GREE [facility] ([facility]) ID Date Data Source [id number] 12/17/2020 11:09:00 AM EDT [facility] ([facility]) Name Value Range Interpretation Code Description Data Dayna rce(s) Supporting Document(s) Reported Physicians See Note Reported Physici ans [facility] ([facility]) Note: Reported Physicians:Ordering: MARGARITA BARNETT [id number]: Aidee VOing: Rosa OLIVAmitting: Hien VO To: Hien VO To: Mana OLIVA To: Malaika Valdez ID Date Data Source [id number] 12/17/2020 11:09:00 AM EDT [facility] ([facility]) Name Value Range Interpretation Code Description Data Dayna rce(s) Supporting Document(s) OCCULT BLOOD See Note Abnormal (applies to non-numeric r esults) OCCULT BLOOD [facility] ([facility]) Note: OCCULT BLOOD 1 POSI TIVE Notes [TIMP] See Note NOTES [facility] ([facility]) Note: SOURCE: STOOL ID Date Data Source [id number] 12/17/2020 10:00:00 AM EDT [facility]) Name Value Range Interpretation Code Description Data Dayna rce(s) Supporting Document(s) Reported Physicians See Note Reported Physici ans [facility] [facility]) Note: Reported Physicians:Ordering: Arlet BARNETTding: Alexi VOulting: Rosa OLIVAmitting: Hien VO To: Hien VO To: Mana OLIVA To: Malaika Valdez ID Date Data Source [id number] 12/17/2020 10:00:00 AM EDT [facility]) Name Value Range Interpretation Code Description Data Dayna rce(s) Supporting Document(s) PACKED CELLS TRANSFUSED PRODUCT: PACKED CELLS COUNT: 2 PACKED CELLS [facility] ([facility]) ID Date Data Source [id number] 12/17/2020 10:00:00 AM EDT [facility] [facility]) Name Value Range Interpretation Code Description Data Dayna rce(s) Supporting Document(s) Reported Physicians See Note Reported Physici ans [facility] [facility]) Note: Reported Physicians:Ordering: ATUL POP [id number]: Alexi VOulting: Rosa OLIVAmitting: Hien VO To: Hien VO To: Mana OLIVA To: Malaika Valdez ID Date Data Source [id number] 12/17/2020 10:00:00 AM EDT [facility] ([facility]) Name Value Range Interpretation Code Description Data Dayna rce(s) Supporting Document(s) BLOOD TYPE O POSITIVE Normal BLOOD TYPE [facility] ([facility]) AB SCREEN (INDIRECT CHANDRAKANT)VIS NEGATIVE Normal AB SC REEN (INDIRECT CHANDRAKANT)VIS [facility] ([facility]) ID Date Data Source [id number] 12/17/2020 08:36:00 AM EDT [facility] ([facility]) Name Value Range Interpretation Code Description Data Dayna rce(s) Supporting Document(s) Reported Physicians See Note Reported Physic ans [facility] ([facility]) Note: Reported Physicians:Ordering: ATUL [id number] RodrigesAttending: Aidee VOing: Rosa OLIVAmitting: Hien VO To: Hien VO To: Malaika Valdez ID Date Data Source [id number] 12/17/2020 08:36:00 AM EDT [facility] ([facility]) Name Value Range Interpretation Code Description Data Dayna rce(s) Supporting Document(s) Ferritin [Interpretation] in Blood 418 NG/ML Above high n ormal FERRITIN [facility] ([facility]) ID Date Data Source [id number] 12/17/2020 08:36:00 AM EDT [facility]) Name Value Range Interpretation Code Description Data Dayna rce(s) Supporting Document(s) Reported Physicians See Note Reported Physic ans [facility] ([facility]) Note: Reported Physicians:Ordering: ATUL [id number] RodrigesAttending: Aidee VOing: Rosa OLIVAmitting: Hien VO To: Hien VO To: Malaika Valdez ID Date Data Source [id number] 12/17/2020 08:36:00 AM EDT [facility] ([facility]) Name Value Range Interpretation Code Description Data Dayna rce(s) Supporting Document(s) IRON (FE) 70 UG/DL Normal IRON (FE) [facility] ([facility]) TOTAL IRON BINDING CAPACITY 225 UG/DL Below low nor mal TOTAL IRON BINDING CAPACITY [facility] ([facility]) PERCENT SATURATION 31.1 % Normal PERCENT SATURATIO N [facility] ([facility]) ID Date Data Source [id number] 12/17/2020 08:36:00 AM EDT [facility]) Name Value Range Interpretation Code Description Data Dayna rce(s) Supporting Document(s) Reported Physicians See Note Reported Physici ans [facility] [facility]) Note: Reported Physicians:Ordering: ATUL Beltran76MARGARITA RodrigesAttending: Aidee VOing: Vero OLIVAing: Hien VO To: Hien VO To: Malaika Valdez ID Date Data Source [id number] 12/17/2020 08:36:00 AM EDT [facility]) Name Value Range Interpretation Code Description Data Dayna rce(s) Supporting Document(s) SLIDE REVIEW Report Normal SLIDE REVIEW [facility] ( [facility]) Note: Slide and/or specimen referred to Pathologist for review. Results of the review are located in the EMR Pathology module under Peripheral Smear when completed. SOURCE PERIPHERAL SMEAR Normal SOURCE [facility] ([facility]) REASON FOR REVIEW RBC MORPHOLOGY Normal REASON FOR REV IEW [facility] ([facility]) Notes [TIMP] See Note NOTES [facility] ([facility]) Note: Reason for Review: RBC MORPHOLOGY ID Date Data Source [id number] 12/17/2020 08:36:00 AM EDT [facility]) Name Value Range Interpretation Code Description Data Dayna rce(s) Supporting Document(s) Reported Physicians See Note Reported Physici ans [facility] [facility]) Note: Reported Physicians:Ordering: ATUL POP [id number] RodrigesAttending: Aidee VOing: Sae OLIVA: Hien VO To: Hien VO To: Malaika Valdez ID Date Data Source [id number] 12/17/2020 08:36:00 AM EDT [facility]) Name Value Range Interpretation Code Description Data Dayna rce(s) Supporting Document(s) Hemoglobin [Mass/volume] in Mixed venous blood by Oximetry 7.7 g /dl Below low normal HEMOGLOBIN [facility] ([facility]) Hematocrit [Pure volume fraction] of Blood by Automated count 22 .0 % Below low normal HEMATOCRIT [facility]) Notes [TIMP] See Note NOTES [facility] ([facility]) Note: Reason for Review: RBC MORPHOLOGY ID Date Data Source [id number] 12/17/2020 08:36:00 AM EDT [facility]) Name Value Range Interpretation Code Description Data Dayna rce(s) Supporting Document(s) Reported Physicians See Note Reported Physici ans [facility] ([facility]) Note: Reported Physicians:Ordering: ATUL POP [id number], JOAN C.Attending: Alexi VOulting: Rosa OLIVAmitting: Hien VO To: Hien VO To: Malaika Valdez ID Date Data Source [id number] 12/17/2020 08:36:00 AM EDT [facility]) Name Value Range Interpretation Code Description Data Dayna rce(s) Supporting Document(s) LACTIC ACID SEPSIS PROTOCOL 3.0 MMOL/L Above upper p anic limits LACTIC ACID SEPSIS PROTOCOL [facility] ([facility]) Notes [TIMP] See Note NOTES [facility] ([facility]) Note: Y/N query for Sepsis Lactate Rule: Y ID Date Data Source [id number] 12/17/2020 06:08:00 AM EDT [facility]) Name Value Range Interpretation Code Description Data Dayna rce(s) Supporting Document(s) Reported Physicians See Note Reported Physici ans [facility] ([facility]) Note: Reported Physicians:Ordering: ATUL POP [id number]: Reginaldo VOitting: Hien VO To: Hien VO To: Malaika Valdez ID Date Data Source [id number] 12/17/2020 06:08:00 AM EDT [facility]) Name Value Range Interpretation Code Description Data Dayna rce(s) Supporting Document(s) LIPASE 329 U/L Normal LIPASE [facility] ([facility]) ID Date Data Source [id number] 12/17/2020 06:08:00 AM EDT [facility]) Name Value Range Interpretation Code Description Data Dayna rce(s) Supporting Document(s) Reported Physicians See Note Reported Physici ans [facility] ([facility]) Note: Reported Physicians:Ordering: ATUL POP [id number]: Reginaldo VOitting: Hien VO To: Hien VO To: Malaika Valdez ID Date Data Source [id number] 12/17/2020 06:08:00 AM EDT [facility]) Name Value Range Interpretation Code Description Data Dayna rce(s) Supporting Document(s) GLUCOSE, FASTING 141 MG/DL Above high normal GLUCOSE, FAS TING [facility] ([facility]) BLOOD UREA NITROGEN 39 MG/DL Above high normal BLOOD URE A NITROGEN [facility] ([facility]) CREATININE FOR GFR 0.98 MG/DL Normal CREATININE FOR GF R [facility] ([facility]) GLOMERULAR FILTRATION RATE > 60.0 Normal GLOMERULA R FILTRATION RATE [facility] ([facility]) Note: Units are mL/min/1.73 m2 Chroni c Kidney Disease Staging per NKF: Stage I & II GFR >=60 Normal to Mildly Decreased Stage III GFR 30- 59 Moderately Decreased Stage IV GFR 15-29 Severely Decreased Stage V GFR <15 Very Little GFR Left ESRD GFR <15 on AREA OPERATIONS MANAGER SODIUM LEVEL 140 MEQ/L Significant change down SODIUM LEV EL [facility] ([facility]) POTASSIUM SERUM 4.4 MEQ/L Normal POTASSIUM SERUM [facility] ([facility]) CARBON DIOXIDE LEVEL 22 MEQ/L Normal CARBON DIOXIDE LEVEL [facility] ([facility]) CHLORIDE LEVEL 111 MEQ/L Above high normal CHLORIDE LEVEL [facility] ([facility]) Anion gap in Body fluid 7 MEQ/L Below low normal ANION GAP [facility]) CALCIUM LEVEL 7.7 MG/DL Below low normal CALCIUM LEVEL [facility] ([facility]) AST/SGOT 10 U/L Normal AST/SGOT [facility] ([facility]) ALT/SGPT 18 U/L Normal ALT/SGPT [facility] ([facility]) Alkaline phosphatase [Enzymatic activity/volume] in Se rum, Plasma or Blood 29 U/L Below low normal ALKALINE PHOSPHATASE [facility]) BILIRUBIN,TOTAL 0.3 MG/DL Normal [facility]IN,TOTAL [facility] TOTAL PROTEIN 4.9 GM/DL Below low normal TOTAL PROTEIN [facility] ([facility]) Albumin [Mass/volume] in Blood by Bromocresol purple ( BCP) dye binding method 2.7 GM/DL Below low normal ALBUMIN [facility]) ALBUMIN/GLOBULIN RATIO 1.2 Normal ALBUMIN/GLOBU TOVA RATIO [facility]) ID Date Data Source [id number] 12/17/2020 06:08:00 AM EDT [facility] [facility]) Name Value Range Interpretation Code Description Data Dayna rce(s) Supporting Document(s) Reported Physicians See Note Reported Physici ans [facility]) Note: Reported Physicians:Ordering: ATUL POP [id number]: Reginaldo VOitting: Hien VO To: Hien VO To: Malaika Valdez ID Date Data Source [id number] 12/17/2020 06:08:00 AM EDT [facility] [facility]) Name Value Range Interpretation Code Description Data Dayna rce(s) Supporting Document(s) WHITE BLOOD COUNT 6.0 3/uL Normal WHITE BLOOD COUNT [facility]) RED BLOOD COUNT 2.65 6/uL Below low normal RED BLOOD COUN T [facility] ([facility]) Hemoglobin [Mass/volume] in Mixed venous blood by Oximetry 7.8 g/dl HEMOGLOBIN [facility] ([facility]) Hematocrit [Pure volume fraction] of Blood by Automated count 23 .0 % Below low normal HEMATOCRIT [facility] ([facility]) MEAN CORPUSCULAR VOLUME 86.8 fl Normal MEAN CORPUSC ULAR VOLUME [facility] ([facility]) MEAN CORPUSCULAR HEMOGLOBIN 29.4 pg Normal MEAN COR PUSCULAR HEMOGLOBIN [facility] ([facility]) MEAN CORPUSCULAR HGB CONC 33.9 g/dl Normal MEAN CORPU SCULAR HGB CONC [facility] ([facility]) RED CELL DISTRIBUTION WIDTH 13.8 % Normal RED CELL DISTRIBUTION WIDTH [facility] ([facility]) PLATELET COUNT, AUTOMATED 177 3/uL Normal PLATELET C OUNT, AUTOMATED [facility] ([facility]) NEUTROPHILS % 71.0 % Above high normal [facility]IL[facility] % [facility] LYMPH % 19.5 % Below low normal LYMPH % [facility]) MONO % 7.4 % Normal MONO % [facility] ([facility]) EOS % 1.0 % Normal EOS % [facility] [facility]) BASO % 0.3 % Normal BASO % [facility] ([facility]) IMMATURE GRANULOCYTE % 0.8 % Normal IMMATURE GRAN ULOCYTE % [facility] ([facility]) NUCLEATED RED BLOOD CELL % 0.0 % Normal NUCLEATED RED BLOOD CELL % [facility] ([facility]) NEUTROPHILS # 4.2 3/uL Normal NEUTROPHILS # [facility] ([facility]) LYMPH # 1.2 3/uL Below low normal LYMPH # [facility] ([facility]) MONO # 0.4 3/uL Normal MONO # [facility] ([facility]) EOS # 0.1 3/uL Normal EOS # [facility] ([facility]) BASO # 0.0 3/uL Normal BASO # [facility] ([facility]) ID Date Data Source [id number] 12/16/2020 08:25:00 PM EDT [facility] ([facility]) Name Value Range Interpretation Code Description Data Dayna rce(s) Supporting Document(s) Reported Physicians See Note Reported Physici ans [facility] ([facility]) Note: Reported Physicians:Ordering: ATUL POP [id number] RodrigesAttending: Reginaldo VOitting: Hien VO To: Hien VO To: Malaika Valdez ID Date Data Source [id number] 12/16/2020 08:25:00 PM EDT [facility] ([facility]) Name Value Range Interpretation Code Description Data Dayna rce(s) Supporting Document(s) BEDSIDE GLUCOSE 169 MG/DL Above high normal BEDSIDE GLUCO SE [facility] ([facility]) Note: Nurse Notified ID Date Data Source [id number] 12/16/2020 06:35:00 PM EDT [facility] ([facility]) Name Value Range Interpretation Code Description Data Dayna rce(s) Supporting Document(s) Reported Physicians See Note Reported Physici ans [facility] ([facility]) Note: Reported Physicians:Ordering: ATUL POP [id number], JOAN C.Attending: Reginaldo VOitting: Hien VO To: Hien VO To: Malaika Valdez ID Date Data Source [id number] 12/16/2020 06:35:00 PM EDT [facility] ([facility]) Name Value Range Interpretation Code Description Data Dayna rce(s) Supporting Document(s) BEDSIDE GLUCOSE 158 MG/DL Above high normal BEDSIDE GLUCO SE [facility] ([facility]) ID Date Data Source [id number] 12/16/2020 05:04:00 PM EDT [facility] ([facility]) Name Value Range Interpretation Code Description Data Dayna rce(s) Supporting Document(s) Reported Physicians See Note Reported Physici ans [facility] ([facility]) Note: Reported Physicians:Ordering: ATUL POP [id number], JOAN C.Attending: Reginaldo VOitting: Hien VO To: Hien VO To: Malaika Valdez ID Date Data Source [id number] 12/16/2020 05:04:00 PM EDT [facility] ([facility]) Name Value Range Interpretation Code Description Data Dayna rce(s) Supporting Document(s) Myoglobin [Presence] in 24 hour Urine 103 NG/ML Normal MYOGLOBIN [facility]) ID Date Data Source [id number] 12/16/2020 05:04:00 PM EDT [facility] ([facility]) Name Value Range Interpretation Code Description Data Dayna rce(s) Supporting Document(s) Reported Physicians See Note Reported Physici ans [facility] ([facility]) Note: Reported Physicians:Ordering: ATUL POP [id number]: Reginaldo VOitting: Hien VO To: Hien VO To: Malaika Valdez ID Date Data Source [id number] 12/16/2020 05:04:00 PM EDT [facility] ([facility]) Name Value Range Interpretation Code Description Data Dayna rce(s) Supporting Document(s) CPK CREATINE PHOSPHOKINASE 63 U/L Normal CPK CREAT INE PHOSPHOKINASE [facility]) CK-MB VALUE MASS 4.1 NG/ML Above high normal CK-MB VALUE MASS [facility]) MB/CK RELATIVE INDEX 6.51 Above high normal MB/CK RE LATIVE INDEX [facility]) Note: DIAGNOSIS CRITERIA MMB ng/ml Relative Index (RI) NON-AMI < or = 5 N/A MCQUEEN ZONE > 5 < or = 4 AMI > 5 > 4 TROPONIN I 0.28 NG/ML Above high normal TROPONIN I [facility]) Note: Troponin I Reference Interval for [employer] LOCI: 99th Percentile= 0.00-0.045 ng/ml Risk Stratification: <= 0.10 ng/ml Decreased Risk for Adverse Clinical Events. 0.10-1.50 ng/ml Increased Risk for Adverse Clinical Events. Evaluation of additional criterion and/or repeat testing in 2-6 hours is suggested to rule out myocardial damage. >= 1.50 ng/ml Indicative of Myocardial Injury. ID Date Data Source [id number] 12/16/2020 05:04:00 PM EDT [facility] ([facility]) Name Value Range Interpretation Code Description Data Dayna rce(s) Supporting Document(s) Reported Physicians See Note Reported [facility] ([facility]) Note: Reported Physicians:Ordering: ATUL POP [id number], JOAN C.Attending: Reginaldo VOitting: Hien VO To: Hien VO To: Malaika Valdez ID Date Data Source [id number] 12/16/2020 05:04:00 PM EDT [facility] ([facility]) Name Value Range Interpretation Code Description Data Dayna rce(s) Supporting Document(s) NT-PRO BNP 518 PG/ML Above high normal NT-PRO BNP [facility]) ID Date Data Source [id number] 12/16/2020 05:04:00 PM EDT [facility] ([facility]) Name Value Range Interpretation Code Description Data Dayna rce(s) Supporting Document(s) Reported Physicians See Note Reported [facility] ([facility]) Note: Reported Physicians:Ordering: ATUL POP [id number], JOAN C.Attending: Reginaldo VOitting: Hien VO To: Hien VO To: Malaika Valdez ID Date Data Source [id number] 12/16/2020 05:04:00 PM EDT [facility] ([facility]) Name Value Range Interpretation Code Description Data Dayna rce(s) Supporting Document(s) Procalcitonin [Mass/volume] in Serum or Plasma by Immunoassay 0.13 Normal PROCALCITONIN [facility]) Note: SEPSIS INTERPRETATION OF RESULTS <0.5 [...] are strongly encouraged. ID Date Data Source [id number] 12/16/2020 05:04:00 PM EDT [facility] ([facility]) Name Value Range Interpretation Code Description Data Dayna rce(s) Supporting Document(s) Reported Physicians See Note Reported Physici ans [facility] ([facility]) Note: Reported Physicians:Ordering: ATUL POP [id number], JOAN C.Attending: Reginaldo VOitting: Hien VO To: Hien VO To: Malaika Valdez ID Date Data Source [id number] 12/16/2020 05:04:00 PM EDT [facility] ([facility]) Name Value Range Interpretation Code Description Data Dayna rce(s) Supporting Document(s) C REACTIVE PROTEIN QUANTITATIV 3.51 MG/DL Above high normal C REACTIVE PROTEIN QUANTITATIV [facility] ([facility]) ID Date Data Source [id number] 12/16/2020 05:04:00 PM EDT [facility] ([facility]) Name Value Range Interpretation Code Description Data Dayna rce(s) Supporting Document(s) Reported Physicians See Note Reported [facility] ([facility]) Note: Reported Physicians:Ordering: ATUL POP [id number], JOAN C.Attending: Reginaldo VOitting: Hien VO To: Hien VO To: Malaika Valdez ID Date Data Source [id number] 12/16/2020 05:04:00 PM EDT [facility] ([facility]) Name Value Range Interpretation Code Description Data Dayna rce(s) Supporting Document(s) LACTIC ACID SEPSIS PROTOCOL 1.6 MMOL/L Normal LACTIC A ROWENA SEPSIS PROTOCOL [facility] ([facility]) Notes [TIMP] See Note NOTES [facility] ([facility]) Note: Y/N query for Sepsis Lactate Rule: Y ID Date Data Source [id number] 12/16/2020 05:04:00 PM EDT [facility] ([facility]) Name Value Range Interpretation Code Description Data Dayna rce(s) Supporting Document(s) Reported Physicians See Note Reported Physici ans [facility] ([facility]) Note: Reported Physicians:Ordering: ATUL POP [phone]: Reginaldo VOitting: Hien VO To: Hien VO To: Malaika Valdez ID Date Data Source [id number] 12/16/2020 05:04:00 PM EDT [facility] ([facility]) Name Value Range Interpretation Code Description Data Dayna rce(s) Supporting Document(s) Erythrocyte sedimentation rate by [place] method 45 mm/hr Above high normal ERYTHROCYTE SEDIMENTATION RATE [facility]) ID Date Data Source [id number] 12/16/2020 02:41:00 PM EDT [facility] ([facility]) Name Value Range Interpretation Code Description Data Dayna rce(s) Supporting Document(s) Reported Physicians See Note Reported Physici ans [facility] ([facility]) Note: Reported Physicians:Ordering: Harman Baum [id number] MDAttending: Reginaldo VOitting: Hien VO To: Hien VO To: Alfredito Sheldon To: Malaika Valdez ID Date Data Source [id number] 12/16/2020 02:41:00 PM EDT [facility] ([facility]) Name Value Range Interpretation Code Description Data Dayna rce(s) Supporting Document(s) LACTIC ACID LEVEL, LACTATE 1.7 MMOL/L Normal LACTIC AC ID LEVEL, LACTATE [facility] ([facility]) ID Date Data Source [id number] 12/16/2020 11:30:00 AM EDT [facility] ([facility]) Name Value Range Interpretation Code Description Data Dayna rce(s) Supporting Document(s) Reported Physicians See Note Reported Physici ans [facility] ([facility]) Note: Reported Physicians:Ordering: Harman Baum [id number] MDAttending: Alfredito Greenwood To: Alfredito Greenwood To: Malaika Valdez ID Date Data Source [id number] 12/16/2020 11:30:00 AM EDT [facility] ([facility]) Name Value Range Interpretation Code Description Data Dayna rce(s) Supporting Document(s) CPK CREATINE PHOSPHOKINASE 61 U/L Normal CPK CREAT INE PHOSPHOKINASE [facility] ([facility]) CK-MB VALUE MASS 3.1 NG/ML Normal [facility] MB/CK RELATIVE INDEX 5.08 Above high normal MB/CK RE LATIVE INDEX [facility] ([facility]) Note: DIAGNOSIS CRITERIA MMB ng/ml Relative Index (RI) NON-AMI < or = 5 N/A MCQUEEN ZONE > 5 < or = 4 AMI > 5 > 4 TROPONIN I 0.33 NG/ML TROPONIN I [facility]) Note: Troponin I Reference Interval for Siemens [place] LOCI: 99th Percentile= 0.00-0.045 ng/ml Risk Stratification: <= 0.10 ng/ml Decreased Risk for Adverse Clinical Events. 0.10-1.50 ng/ml Increased Risk for Adverse Clinical Events. Evaluation of additional criterion and/or repeat testing in 2-6 hours is suggested to rule out myocardial damage. >= 1.50 ng/ml Indicative of Myocardial Injury. ID Date Data Source [id number] 12/16/2020 09:45:00 AM EDT [facility] ([facility]) Name Value Range Interpretation Code Description Data Dayna rce(s) Supporting Document(s) Reported Physicians See Note Reported Physici ans [facility] ([facility]) Note: Reported Physicians:Ordering: Volodymyr Matos [id number]: Alexi VOulting: Rosa OLIVAmitting: Hien VO To: Hien VO To: Alfredito Greenwood To: Malaika Valdez ID Date Data Source [id number] 12/16/2020 09:45:00 AM EDT [facility] ([facility]) Name Value Range Interpretation Code Description Data Dayna rce(s) Supporting Document(s) GATS CULTURE (NEG STREP SCR) See Note Normal GATS CU LTURE (NEG STREP SCR) [facility] ([facility]) Note: FULL REPORT IN LAB NOTES (eCW and [facility]).NEGATIVE FOR STREP PYOGENES (GROUP A) Notes [TIMP] See Note NOTES [facility] ([facility]) Note: Is patient on Antibiotics? N SOUR CE: THROAT ID Date Data Source [id number] 12/16/2020 08:36:00 AM EDT [facility] ([facility]) Name Value Range Interpretation Code Description Data Dayna rce(s) Supporting Document(s) Reported Physicians See Note Reported Physici ans [facility] ([facility]) Note: Reported Physicians:Ordering: Harman Baum [id number] MDAttending: Alfredito Greenwood To: Alfredito Greenwood To: Malaika Valdez ID Date Data Source [id number] 12/16/2020 08:36:00 AM EDT [facility]) Name Value Range Interpretation Code Description Data Dayna rce(s) Supporting Document(s) NELDA STREP A NEGATIVE Normal NELDA STREP A [facility] ([facility]) ID Date Data Source [id number] 12/16/2020 08:33:00 AM EDT [facility] ([facility]) Name Value Range Interpretation Code Description Data Dayna rce(s) Supporting Document(s) Reported Physicians See Note Reported Physici ans [facility] ([facility]) Note: Reported Physicians:Ordering: Harman Baum [id number], Volodymyr MDAttending: Alfredito Greenwood To: Alfredito Greenwood To: Malaika Valdez ID Date Data Source [id number] 12/16/2020 08:33:00 AM EDT [facility] ([facility]) Name Value Range Interpretation Code Description Data Dayna rce(s) Supporting Document(s) BEDSIDE GLUCOSE 196 MG/DL Above high normal BEDSIDE GLUCO SE [facility] ([facility]) ID Date Data Source [id number] 12/16/2020 08:18:00 AM EDT [facility] Name Value Range Interpretation Code Description Data Dayna rce(s) Supporting Document(s) SARS-CoV-2 (COVID 19) NEGATIVE - SARS-CoV-2 (COVID19) [facility] This lab was ordered by [facility] a nd reported by [facility]. ID Date Data Source [id number] 12/16/2020 08:18:00 AM EDT [facility] ([facility]) Name Value Range Interpretation Code Description Data Dayna rce(s) Supporting Document(s) Reported Physicians See Note Reported Physici ans [facility] ([facility]) Note: Reported Physicians:Ordering: Harman Baum [id number] MDAttending: Alfredito Greenwood To: Alfredito Greenwood To: Malaika Valdez ID Date Data Source [id number] 12/16/2020 08:18:00 AM EDT [facility] ([facility]) Name Value Range Interpretation Code Description Data Dayna rce(s) Supporting Document(s) LACTIC ACID SEPSIS PROTOCOL 2.5 MMOL/L Above upper p anic limits LACTIC ACID SEPSIS PROTOCOL [facility] ([facility]) Notes [TIMP] See Note NOTES [facility] ([facility]) Note: Y/N query for Sepsis Lactate Rule: Y ID Date Data Source [id number] 12/16/2020 08:18:00 AM EDT [facility] ([facility]) Name Value Range Interpretation Code Description Data Dayna rce(s) Supporting Document(s) Reported Physicians See Note Reported Physici ans [facility] ([facility]) Note: Reported Physicians:Ordering: Volodymyr Matos [phone]: Alfredito Greenwood To: Maj KrystynaaCojeff To: Malaika Valdez ID Date Data Source [id number] 12/16/2020 08:18:00 AM EDT [facility] ([facility]) Name Value Range Interpretation Code Description Data Dayna rce(s) Supporting Document(s) RESPIRATORY PANEL See Note RESPIRATORY PANEL [facility] ([facility]) Note: This respiratory PCR panel detects Influenza A H1, H3 [id number] H1 viruses, Influenza B virus, Respiratory Syncytial Virus,Human metapneumovirus, Parainfluenza virus 1, 2, 3 and 4, Adenovirus,Rhinovirus/Enterovirus, Coronavirus HKU1, NL63, OC43, 229E [id number] (COVID 19), Bordetella pertussis, Bordetella parapertussis,Mycoplasma pneumoniae and Chlamydia pneumoniae.NEGATIVE by MULTIPLEXED NUCLEIC ACID [id number] (COVID 19) NEGATIVE - SARS-CoV-2 (COVID19) Notes [TIMP] See Note NOTES [facility] ([facility]) Note: Source: [id number] ID Date Data Source [id number] 12/16/2020 08:17:00 AM EDT [facility] ([facility]) Name Value Range Interpretation Code Description Data Dayna rce(s) Supporting Document(s) Reported Physicians See Note Reported Physici ans [facility] ([facility]) Note: Reported Physicians:Ordering: Harman Baum [id number]: Alfredito Greenwood To: Alfredito Greenwood To: Malaika Valdez ID Date Data Source [id number] 12/16/2020 08:17:00 AM EDT [facility] ([facility]) Name Value Range Interpretation Code Description Data Dayna rce(s) Supporting Document(s) CPK CREATINE PHOSPHOKINASE 54 U/L Normal CPK CREAT INE PHOSPHOKINASE [facility] ([facility]) CK-MB VALUE MASS 2.0 NG/ML Normal [facility] MB/CK RELATIVE INDEX 3.70 Normal MB/CK RELATIVE INDEX [facility] ([facility]) Note: DIAGNOSIS CRITERIA MMB ng/ml Relative Index (RI) NON-AMI < or = 5 N/A MCQUEEN ZONE > 5 < or = 4 AMI > 5 > 4 TROPONIN I 0.20 NG/ML Above high normal TROPONIN I [facility] ([facility]) Note: Troponin I Reference Interval for Siemens [place] LOCI: 99th Percentile= 0.00-0.045 ng/ml Risk Stratification: <= 0.10 ng/ml Decreased Risk for Adverse Clinical Events. 0.10-1.50 ng/ml Increased Risk for Adverse Clinical Events. Evaluation of additional criterion and/or repeat testing in 2-6 hours is suggested to rule out myocardial damage. >= 1.50 ng/ml Indicative of Myocardial Injury. ID Date Data Source [id number] 12/16/2020 08:17:00 AM [facility] ([facility]) Name Value Range Interpretation Code Description Data Dayna rce(s) Supporting Document(s) Reported Physicians See Note Reported Physici ans [facility] ([facility]) Note: Reported Physicians:Ordering: Harman Baum [phone]: Alfredito Greenwood To: Alfredito Greenwood To: Malaika Valdez ID Date Data Source [id number] [facility]2020 [facility] Name Value Range Interpretation Code Description Data Dayna rce(s) Supporting Document(s) GLUCOSE, FASTING 196 MG/DL Above high normal GLUCOSE, FAS TING [facility] ([facility]) BLOOD UREA NITROGEN 49 MG/DL Above high normal BLOOD URE A NITROGEN [facility] ([facility]) CREATININE FOR GFR 1.12 MG/DL Normal CREATININE FOR GF R [facility] ([facility]) GLOMERULAR FILTRATION RATE > 60.0 Normal GLOMERULA R FILTRATION RATE [facility] ([facility]) Note: Units are mL/min/1.73 m2 Chroni c Kidney Disease Staging per NKF: Stage I & II GFR >=60 Normal to Mildly Decreased Stage III GFR 30- 59 Moderately Decreased Stage IV GFR 15-29 Severely Decreased Stage V GFR <15 Very Little GFR Left ESRD GFR <15 on [employer] SODIUM LEVEL 133 MEQ/L Below low normal SODIUM LEVEL [facility] ([facility]) POTASSIUM SERUM 4.6 MEQ/L Normal POTASSIUM SERUM [facility]) CHLORIDE LEVEL 104 MEQ/L Normal CHLORIDE LEVEL [facility]) CARBON DIOXIDE LEVEL 20 MEQ/L Below low normal CARBON DI OXIDE LEVEL [facility]) Anion gap in Body fluid 9 MEQ/L Normal [facility]ION GAP [facility] CALCIUM LEVEL 8.2 MG/DL Below low normal CALCIUM LEVEL GR [facility] ([facility]) ID Date Data Source [id number] 12/16/2020 08:17:00 AM EDT [facility] ([facility]) Name Value Range Interpretation Code Description Data Dayna rce(s) Supporting Document(s) Reported Physicians See Note Reported Physic ans [facility] ([facility]) Note: Reported Physicians:Ordering: Harman Baum [id number], Maja MDAttending: Maj KrystynaaCopy To: Alfredito Greenwood To: Malaika Valdez ID Date Data Source [id number] 12/16/2020 08:17:00 AM EDT [facility] ([facility]) Name Value Range Interpretation Code Description Data Dayna rce(s) Supporting Document(s) NT-PRO BNP 133 PG/ML Normal NT-PRO BNP [facility] ([facility]) ID Date Data Source [id number] 12/16/2020 08:17:00 AM EDT [facility] ([facility]) Name Value Range Interpretation Code Description Data Dayna rce(s) Supporting Document(s) Reported Phys[facility] Note [facility] Note: Reported Physicians:Ordering: Yale Shruthiray [id number], Maja MDAttending: Krystyna MajaCopy To: Krystyna MajaCojeff To: Malaika Valdez ID Date Data Source [id number] 12/16/2020 08:17:00 AM EDT [facility] ([facility]) Name Value Range Interpretation Code Description Data Dayna rce(s) Supporting Document(s) AST/SGOT 8 U/L Normal AST/SGOT [facility] ([facility]) ALT/SGPT 21 U/L Normal ALT/SGPT [facility] ([facility]) BILIRUBIN,TOTAL 0.3 MG/DL Normal BILIRUBIN,TOTAL GREE [facility] ([facility]) Alkaline phosphatase [Enzymatic activity/volume] in Se rum, Plasma or Blood 41 U/L Below low normal ALKALINE PHOSPHATASE [facility]) BILIRUBIN,DIRECT 0.1 MG/DL Normal BILIRUBIN,DIRECT GR [facility]) TOTAL PROTEIN 6.0 GM/DL Below low normal TOTAL PROTEIN [facility] ([facility]) Albumin [Mass/volume] in Blood by Bromocresol purple ( BCP) dye binding method 3.1 GM/DL Below low normal ALBUMIN [facility]) ALBUMIN/GLOBULIN RATIO 1.1 Normal ALBUMIN/GLOBU TOVA RATIO [facility]) ID Date Data Source [id number] 12/16/2020 08:17:[facility] Name Value Range Interpretation Code Description Data Dayna rce(s) Supporting Document(s) Reported Physicians See Note Reported Physic ans [facility] ([facility]) Note: Reported Physicians:Ordering: Harman Baum [phone], Maja MDAttending: Alfredito Greenwood To: Alfredito Greenwood To: Malaika Valdez ID Date Data Source [id number] 12/16/2020 08:17:00 [facility] Name Value Range Interpretation Code Description Data Dayna rce(s) Supporting Document(s) THYROXINE (T4) 8.6 UG/DL Normal THYROXINE (T4) [facility]) ID Date Data Source [id number] 12/16/2020 08:17:00 AM EDT [facility] ([facility]) Name Value Range Interpretation Code Description Data Dayna rce(s) Supporting Document(s) Reported Physicians See Note Reported [facility] ([facility]) Note: Reported Physicians:Ordering: Harman Baum [id number], Maja MDAttending: Krystyna MajaCopy To: Krystyna MajaCopy To: Malaika Valdez ID Date Data Source [id number] 12/16/2020 08:17:00 AM EDT [facility] ([facility]) Name Value Range Interpretation Code Description Data Dayna rce(s) Supporting Document(s) RED BLOOD COUNT 3.75 6/uL Below low normal RED BLOOD COUN T [facility] ([facility]) WHITE BLOOD COUNT 8.9 3/uL Normal WHITE BLOOD COUNT [facility] ([facility]) Hemoglobin [Mass/volume] in Mixed venous blood by Oximetry 11.0 g/dl Below low normal HEMOGLOBIN [facility] ([facility]) Hematocrit [Pure volume fraction] of Blood by Automated count 32 .1 % Below low normal HEMATOCRIT [facility]) MEAN CORPUSCULAR VOLUME 85.6 fl Normal MEAN CORPUSC ULAR VOLUME [facility] ([facility]) MEAN CORPUSCULAR HEMOGLOBIN 29.3 pg Normal MEAN COR PUSCULAR HEMOGLOBIN [facility] ([facility]) MEAN CORPUSCULAR HGB CONC 34.3 g/dl Normal MEAN CORPU SCULAR HGB CONC [facility] ([facility]) PLATELET COUNT, AUTOMATED 231 3/uL Normal PLATELET C OUNT, AUTOMATED [facility] ([facility]) RED CELL DISTRIBUTION WIDTH 13.2 % Normal RED CELL DISTRIBUTION WIDTH [facility] ([facility]) NEUTROPHILS % 80.3 % Above high normal [facility]HILS % [facility] LYMPH % 9.7 % Below low normal LYMPH % [facility]) MONO % 8.4 % Above high normal MONO % [facility]) BASO % 0.3 % Normal BASO % [facility]) EOS % 0.2 % Normal EOS % [facility]) IMMATURE GRANULOCYTE % 1.1 % Normal IMMATURE GRAN ULOCYTE % [facility] ([facility]) NUCLEATED RED BLOOD CELL % 0.0 % Normal NUCLEATED RED BLOOD CELL % [facility] ([facility]) NEUTROPHILS # 7.2 3/uL Normal NEUTROPHILS # [facility] ([facility]) LYMPH # 0.9 3/uL Below low normal LYMPH # [facility] ([facility]) MONO # 0.8 3/uL Normal MONO # [facility] ([facility]) EOS # 0.0 3/uL Normal EOS # [facility] ([facility]) BASO # 0.0 3/uL Normal BASO # [facility] ([facility]) ID Date Data Source [id number] 12/16/2020 08:17:00 AM EDT [facility]) Name Value Range Interpretation Code Description Data Dayna rce(s) Supporting Document(s) Reported Physicians See Note Reported Physici ans [facility] ([facility]) Note: Reported Physicians:Ordering: Harman Baum [id number], Maja MDAttending: Alfredito Greenwood To: Alfredito Greenwood To: Malaika Valdez ID Date Data Source [id number] 12/16/2020 08:17:00 AM EDT [facility]) Name Value Range Interpretation Code Description Data Dayna rce(s) Supporting Document(s) THYROID STIMULATING HORMONE 0.728 uIU/ML Normal THYROI D STIMULATING HORMONE [facility] ([facility]) ID Date Data Source [id number] 12/16/2020 08:17:00 AM EDT [facility]) Name Value Range Interpretation Code Description Data Dayna rce(s) Supporting Document(s) Reported Physicians See Note Reported Physici ans [facility] ([facility]) Note: Reported Physicians:Ordering: Yale Shruthiray [id number], Maja MDAttending: Maj KrystynaaCopy To: Alfredito Greenwood To: Malaika Valdez ID Date Data Source [id number] 12/16/2020 08:17:00 AM EDT [facility] ([facility]) Name Value Range Interpretation Code Description Data Dayna rce(s) Supporting Document(s) LIPASE 405 U/L Above high normal LIPASE [facility] ([facility]) ID Date Data Source [id number] 12/13/2020 07:59:00 AM EDT [facility] 1 OrderSheet [facility] Emergency Department [address] [place] [address] Phone #: ext- [phone] 12/13/2020 07:56 Patient: [...] rce(s) Supporting Document(s) ID Date Data Source [id number] 12/13/2020 07:59:00 AM EDT [facility] 1 Medication Reconciliation Report [facility] Emergency Department [address] [place] [address] Phone #: ext- [phone] 12/13/2020 07:56 Patient: TERESA WICK Sex: M : 1940 Age: 80yWeight: 108.8 kgHeight/Length: 67 in.BMI: 37.6ALLERGIES: No Known Drug AllergyThe patient's Home Medications are listed below:CONTINUE TAKING THE FOLLOWING MEDICATIONS: Aspirin EC Oral (81 mg) 1 tablet, daily, last dose: 497506 0822 Atenolol Oral (50 mg) 1 tablet, 2x a day, last dose: 442928 9369 Esomeprazole Magnesium Oral (40 mg) 1 capsule, daily, last dose: 418080 7399 Fenofibrate Oral (48 mg) 1 tablet, bedtime, last dose: 5070226 Hydrochlorothiazide Oral (25 mg) 1 tablet, daily, last dose: 077445 3739 Losartan Potassium Oral (50 mg) 1 tablet, daily, last dose: 107474 6459 Potassium Chloride ER Oral (20 meq) 1 tablet, bedtime, last dose: 5070226 Travatan Z Ophthalmic (0.004 %) 1 drop, last dose: 5070226 Vitamin D Oral 12687 units, every two weeksThe source(s) of the original Home Medication information:Not obtained.The following Medications were given to the patient in the Emergency Department:None.The following Medications were prescribed to the patient:None. Name Value Range Interpretation Code Description Data Dayna e(s) Supporting Document(s) ID Date Data Source [id number] 12/13/2020 07:59:00 AM EDT [facility] 1 Medication Administration Record [facility] Emergency Department [address] [place] [address] Phone #: ext- [phone] 12/13/2020 07:56 Patient: TERESA WICK Sex: M : 1940 Age: 80yWeight: 108.8 kgHeight/Length: 67 inBMI: 37.6ALLERGIES: No Known Drug AllergyDate/Time Medication Administered Medication Ordered Name Value Range Interpretation Code Description Data Dayna rce(s) Supporting Document(s) ID Date Data Source [id number] 12/13/2020 07:59:00 AM EDT [facility] 1 General Instructions [facility] Emergency Department [address] [place] [address] #: ext- [phone] 12/13/2020 07:56 Patient: TERESA WICK Sex: M [...] 1 drop, Last: [id number].Vitamin D Oral : 80347 units every two weeks.Follow- up:Follow up with your healthcare provider Tuesday. Reason for referral: evaluation. Summary of careprovided to patient via paper. Blood pressure screening was not performed during this visit because thepatient has an active diagnosis of hypertension. The patient should follow up with a primary care providerfor blood pressure management. ADDITIONAL INFORMATIONAcute Viral Pharyngitis (Sore Throat) 2 General Instructions [facility] Emergency Department [address] [place] [address] Phone #: ext- [phone] 12/13/2020 07:56 Patient: [...] will also help reduce throat pain. Dissolve / 3 General Instructions [facility] [address] [place] [address] Phone #: ext- [phone] 12/13/2020 07:56 Patient: [...] any of these occur: 4 General Instructions [facility] Emergency Department [address] [place] [address] Phone #: ext- [phone] 12/13/2020 07:56 [id number]: [facility] : 1940 Age: 80y Trouble [...] 101F (38.3C) or higher 5 General Instructions [facility] Emergency Department [address] [place] [address] Phone #: ext- [phone] 12/13/2020 07:56 Patient: [...] a child age 2 or older [employer] [address] [place] [address]. All rights reserved. This information is not intended as asubstitute for professional medical care. Always follow your healthcare professional's instructions. You have been given the following additional information: Pharyngitis, Viral(Electronically signed by Rodriguez Fischer 12/13/2020 13:44) Name Value Range Interpretation Code Description Data Dayna rce(s) Supporting Document(s) ID Date Data Source [id number] 12/13/2020 07:59:00 AM EDT [facility] 1 Clinical Report - Nurses [facility] Department [address] [place] [address] Phone #: ext- [phone] 12/13/2020 07:56 Patient: TERESA WICK Sex: M : 1940 Age: 80yTRIAGEArrived by private vehicle. Historian: patient. Accompanied by family.Acuity: LEVEL 4.Chief Complaint: SORE THROAT and (swollen glands).Onset. (1 weeks ago). 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 (629).SEPSIS SCREEN: SIRS SCREEN NEGATIVE. SEPSIS SCREEN NEGATIVE. [...] 81 mg) 1 tablet, daily, last dose 257261 9036. Atenolol Oral (Tablet 50 mg) 1 tablet, 2x a day, last dose 591761 3851. Esomeprazole Magnesium Oral (Capsule Delayed Release 40 mg) 1 capsule, daily, last dose 4895069689. Fenofibrate Oral (Tablet 48 mg) 1 tablet, bedtime, last dose 260474 0300. Hydrochlorothiazide Oral (Tablet 25 mg) 1 tablet, daily, last dose 217052 9438. Losartan Potassium Oral (Tablet 50 mg) 1 tablet, daily, last dose 841162 7872. Potassium Chloride ER Oral (Tablet Extended Release 20 meq) 1 tablet, bedtime, last dose [id number]. --08:01 12/13/20 Ming Wilcox RN Travatan Z Ophthalmic (Solution 0.004 %) 1 drop, last dose 175547 8068. Vitamin D Oral 34730 units, every two weeks. --08:01 12/13/20 Ming Wilcox RN.AllergiesNo Known Drug Allergy. --08:12/13/20 Ming Wilcox RN. 2 Clinical Report - Nurses [facility] Emergency Department [address] [place] [address] Phone #: ext- [phone] 12/13/2020 07:56 [id number] Sex: M : 1940 Age: 80y History [...] Identification band on patient. To treatment room. --:12/13/20 Ming Wilcox RN.PHYSICAL ASSESSMENTAmbulatory to room.GENERAL / [...] is warm and dry. Normal skin turgor. --08:08 12/13/20 Ming Wilcox RN.NURSING PROG RESS NOTESNIBP monitor [...] bed on. 3 Clinical Report - Nurses [facility] Department [address] [place] [address] Phone #: ext- [phone] 12/13/2020 07:56 [id number] Sex: M : 1940 Age: 80y Patient ready for evaluation- ED physician notified. 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 --08:16 12/13/20 Ming Wilcox RN 09:00 12/13/20. BP: 148/73. MAP: 98. HR: 70. RR: 18. O2 saturation: 98%. --10:09 12/13/20 [place] LeukoDxA[facility] ER Tech1.DISPOSITION / DISCHARGE 10:09 12/13/20. BP: 155/78. HR: 68. RR: 19. O2 saturation: 98%. Temp: 98.6 F. Pain level now 6/10. --10:09 12/13/20 [place] LeukoDxA[facility] ER Tech1 10:47 12/13/20. Condition at departure: improved and stable. Discharge instructions provided and reviewed with the patient. Patient verbalized understanding. Written instructions provided in Argentine. The patient was discharged by the physician. He was discharged home and accompanied by family. He left ambulatory and via private vehicle. Family member driving. --10:49 12/13/20 Ming Wilcox RN.Locked/Released at 12/13/2020 10:50 by Ming Wilcox RN Name Value Range Interpretation Code Description Data Dayna rce(s) Supporting Document(s) ID Date Data Source [id number] 12/13/2020 07:59:00 AM EDT [facility] 1 Clinical Report - Physicians/Mid Levels [facility] Department [address] [place] [address] Phone #: ext- [phone] 12/13/2020 07:56 Patient: [...] (Solution 0.004 %) 1 drop, last dose 148962 2286. Vitamin D Oral 52802 units, every two weeks. Aspirin EC Oral (Tablet Delayed Release 81 mg) 1 tablet, daily, last dose 368848 6975. Atenolol Oral (Tablet 50 mg) 1 tablet, 2x a day, last dose 127456 5125. Esomeprazole Magnesium Oral (Capsule Delayed Release 40 mg) 1 capsule, daily, last dose 244576 3098. Fenofibrate Oral (Tablet 48 mg) 1 tablet , bedtime, last dose 623031 0417. Hydrochlorothiazide Oral (Tablet 25 mg) 1 tablet, daily, last dose 519808 0772. Losartan Potassium Oral (Tablet 50 mg) 1 tablet, daily, last dose 926523 7495. Potassium Chloride ER Oral (Tablet Extended Release 20 meq) 1 tablet, bedtime, last dose 972510 2 Clinical Report - Physicians/Mid Levels [facility] Department [address] [place] [address] Phone #: ext- [phone] 12/13/2020 07:56 [id number] Sex: M : 1940 Age: 80y 2100. [...] PROCEDURAL CONTROL VALID ){ KIT LOT # [id number] ){ KIT EXP DATE 03.20.22 )The Strep [...] Throat 3 Clinical Report - Physicians/Mid Levels [facility] Department [address] [place] [address] Phone #: ext- [phone] 12/13/2020 07:56 Patient: TERESA WICK Sex: M [...] follow-up. Patient agrees with plan of care. :57. Disposition: Discharged h ome in good condition [...] drop, Last: [id number]. Vitamin D Oral : 34800 units every two weeks. Follow-up: Follow up with your healthcare provider Tuesday. Reason for referral: evaluation. Summary of care provided to patient via paper. Blood pressure screening was not performed during this visit because the patient has an active diagnosis of hypertension. The patient should follow up with a primary care provider for blood pressure management. 4 Clinical Report - Physicians/Mid Levels [facility] Department [address] [place] [address] Phone #: ext- [phone] 12/13/2020 07:56 Patient: TERESA WICK Sex: M : 1940 Age: 80y(Electronically signed by Rodriguez Fischer 12/13/2020 13:44) Name Value Range Interpretation Code Description Data Dayna rce(s) Supporting Document(s) ID Date Data Source [id number] 12/13/2020 08:10:00 AM EDT [facility] ([facility]) Name Value Range Interpretation Code Description Data Dayna rce(s) Supporting Document(s) Reported Physicians See Note Reported Physici ans [facility] ([facility]) Note: Reported Physicians:Ordering: RODRIGUEZ MITCHELL CAttending: RODRIGUEZ FISCHERConsulting: MALAIKA VALDEZCopdonovan To: Myranda FISCHER To: Malaika Valdez ID Date Data Source [id number] 12/13/2020 08:10:00 AM [facility] ([facility]) Name Value Range Interpretation Code Description Data Dayna rce(s) Supporting Document(s) CULTURE UPPER RESPIRATORY See Note CULTURE UP PER RESPIRATORY [facility] ([facility]) Note: _CULTURE UPPER RESPIRATORY_ $ [id number]$$[id number]$$[id number] $[id number]$$[id number]$$[id number]$$[id number]$$[id number]$$[id number] DATE/TIME: 12/15/2020 13:05Culture: CULTURE UPPER RESPIRATORY Status: FinalUpper Respiratory Culture: R5Bhijcut respiratory floraP1 Test performed by: Jose DEL VALLE #: [id number] [address] [place] [address] [id number] [facility] [id number] Director : Kermit Rodriguez MD NPI #:Gas Station Cashier : 12/[email or web address] REF ID Date Data Source [id number] 12/13/2020 08:10:00 AM EDT [facility] ([facility]) Name Value Range Interpretation Code Description Data Dayna rce(s) Supporting Document(s) Reported Physicians See Note Reported Physici [place] [facility] ([facility]) Note: Reported Physicians:Ordering: RODRIGUEZ MITCHELL CAttending: RODRIGUEZ FISCHERConsulting: MALAIKA VALDEZCopdonovan To: Myranda FISCHER To: Myranda FISCHER To: Malaika Valdez ID Date Data Source [id number] 12/13/2020 08:10:00 AM EDT [facility] Name Value Range Interpretation Code Description Data Dayna rce(s) Supporting Document(s) RAPID STREP NEGATIVE RAPID STREP [facility] ([facility]) Note: Responsible Observer: (SE) RAPID STREP REENTER NEGATIVE RAPID STREP REEN TER [facility] ([facility]) Note: { PROCEDURAL CONTROL VALID ){ KIT LOT # [id number] ){ KIT EXP DATE 03.20.22 )The Strep [...] treatment.Responsible Observer: (TAD) ID Date Data Source [id number] 12/16/2020 [facility]:29[facility] Value Range Interpretation Code Description Data Dayna rce(s) Supporting Document(s) CULTURE UPPER RESPIRATORY [facility] _CULTURE UPPER RESPIRATORY_$$[id number]$$[id number]$$[id number]$$[id number]$$[id number]$$[id number]$$[id number] DATE/TIME: 12/15/2020 13:05Culture: CULTURE UPPER RESPIRATORY Status: FinalUpper Respiratory Culture: Q2Eobpvop respiratory floraP1 Test performed by: [facility] DEL VALLE #: [id number] [address] [facility] [id number] [facility] [id number] Director : Kermit Rodriguez MD NPI #:Gas Station Cashier : 12/16/[email or web address] REF ID Date Data Source [id number] 12/13/2020 08:48:00 AM EDT [facility] Name Value Range Interpretation Code Description Data Dayna rce(s) Supporting Document(s) RAPID STREP NEGATIVE NORMAL: NEGATIVE [facility] RAPID STREP REENTER NEGATIVE NORMAL: NEGATIVE [facility] { PROCEDURAL CONTROL VALID ){ KIT LOT # [id number] ){ KIT EXP DATE 03.20.22 )The Strep [...] basis for treatment. ID Date Data Source [id number] 11/13/2020 12:02:00 PM EDT [facility] Name Value Range Interpretation Code Description Data Dayna rce(s) Supporting Document(s) Reported Physicians See Note [facility]orted [facility] ([facility]) Note: Reported Physicians:Ordering: SOHAIL RAMAN [id number] V.Attending: JEFFERY SANDERSONConsulting: Nydia Garcia JroAdmitting: Long MISHRA To: Marco SANDERSON To: Thierry Valdez To: Nydia Garcia JroCojeff To: REHAN MISHRA ID Date Data Source [id number] 11/13/2020 12:02:00 PM EDT [facility] ([facility]) Name Value Range Interpretation Code Description Data Dayna rce(s) Supporting Document(s) BEDSIDE GLUCOSE 117 MG/DL Above high normal BEDSIDE GLUCO SE [facility] ([facility]) ID Date Data Source [id number] 11/13/2020 08:07:00 AM EDT [facility] ([facility]) Name Value Range Interpretation Code Description Data Dayna rce(s) Supporting Document(s) Reported Physicians See Note Reported [facility] ([facility]) Note: Reported Physicians:Ordering: SOHAIL RAMAN [id number] Antonio V.Attending: JEFFERY SANDERSONConsulting: Nydia Garcia JroAdmitting: Long MISHRA To: Marco SANDERSON To: Malaika ValdezCopdonovan To: Sabine Garcia Jr To: REHAN MISHRA ID Date Data Source [id number] 11/13/2020 08:07:00 AM EDT [facility] ([facility]) Name Value Range Interpretation Code Description Data Dayna rce(s) Supporting Document(s) BEDSIDE GLUCOSE 118 MG/DL Above high normal BEDSIDE GLUCO SE [facility] ([facility]) ID Date Data Source [id number] 11/12/2020 08:19:00 PM EDT [facility] ([facility]) Name Value Range Interpretation Code Description Data Dayna rce(s) Supporting Document(s) Reported Physicians See Note Reported [facility] ([facility]) Note: Reported Physicians:Ordering: SOHAIL RAMAN [id number] Antonio V.Attending: JEFFERY SANDERSONConsulting: Nydia Garcia JroAdmitting: Long MISHRA To: Marco SANDERSON To: Malaika ValdezCopdonovan To: Sabine Garcia Jr To: DANICA REHAN ID Date Data Source [id number] 11/12/2020 08:19:00 PM EDT [facility] ([facility]) Name Value Range Interpretation Code Description Data Dayna rce(s) Supporting Document(s) BEDSIDE GLUCOSE 91 MG/DL Normal BEDSIDE GLUCOSE [place] ([facility]) ID Date Data Source [id number] 11/12/2020 04:35:00 PM EDT [facility] ([facility]) Name Value Range Interpretation Code Description Data Dayna rce(s) Supporting Document(s) Reported Physicians See Note Reported [facility] ([facility]) Note: Reported Physicians:Ordering: SOHAIL RAMAN [id number] V.Attending: JEFFERY SANDERSONConsulting: Nydia Garcia JroAdmitting: Long MISHRA To: Marco SANDERSON To: Malaika ValdezCopdonovan To: Sabine Garcia Jr To: REHAN MISHRA ID Date Data Source [id number] 11/12/2020 04:35:00 PM EDT [facility] ([facility]) Name Value Range Interpretation Code Description Data Dayna rce(s) Supporting Document(s) BEDSIDE GLUCOSE 180 MG/DL Above high normal BEDSIDE GLUCO SE [facility] ([facility]) Note: RN Notified ID Date Data Source [id number] 11/12/2020 11:23:00 AM EDT [facility] ([facility]) Name Value Range Interpretation Code Description Data Dayna rce(s) Supporting Document(s) Reported Physicians See Note Reported [facility] ([facility]) Note: Reported Physicians:Ordering: SOHAIL RAMAN [id number] V.Attending: JEFFERY SANDERSONConsulting: Nydia Garcia JroAdmitting: Long MISHRA To: Marco SANDERSON To: Malaika ValdezCopdonovan To: Sabine Garcia Jr To: REHAN MISHRA ID Date Data Source [id number] 11/12/2020 11:23:00 AM EDT [facility] ([facility]) Name Value Range Interpretation Code Description Data Dayna rce(s) Supporting Document(s) BEDSIDE GLUCOSE 141 MG/DL Above high normal BEDSIDE GLUCO SE [facility] ([facility]) Note: RN Notified ID Date Data Source [id number] 11/12/2020 06:36:00 AM EDT [facility] ([facility]) Name Value Range Interpretation Code Description Data Dayna rce(s) Supporting Document(s) Reported Physicians See Note Reported [facility] ([facility]) Note: Reported Physicians:Ordering: SOHAIL RAMAN [id number], JEFFERY SoniAttending: JEFFERY SANDERSONConsulting: Ozzy Garcia Jrmitting: Long MISHRA To: Marco SANDERSON To: Dorie ValdezcelynCopy To: Sabine Garcia Jr To: REHAN MISHRA ID Date Data Source [id number] 11/12/2020 06:36:00 AM EDT [facility] ([facility]) Name Value Range Interpretation Code Description Data Dayna rce(s) Supporting Document(s) BEDSIDE GLUCOSE 131 MG/DL Above high normal BEDSIDE GLUCO SE [facility] ([facility]) ID Date Data Source [id number] 11/11/2020 11:55:00 PM EDT [facility] ([facility]) Name Value Range Interpretation Code Description Data Dayna rce(s) Supporting Document(s) Reported Physicians See Note Reported [facility] ([facility]) Note: Reported Physicians:Ordering: SOHAIL RAMAN [id number], JEFFERY SoniAttending: JEFFERY SANDERSONConsulting: Ozzy Garcia Jrmitting: Long MISHRA To: Marco SANDERSON To: Courtney, JocelynCopy To: Nydia Garcia JroCopy To: REHAN MISHRA ID Date Data Source [id number] 11/11/2020 11:55:00 PM EDT [facility] ([facility]) Name Value Range Interpretation Code Description Data Dayna rce(s) Supporting Document(s) BEDSIDE GLUCOSE 113 MG/DL Above high normal BEDSIDE GLUCO SE [facility] ([facility]) ID Date Data Source [id number] 11/11/2020 09:45:00 PM EDT [facility] ([facility]) Name Value Range Interpretation Code Description Data Dayna rce(s) Supporting Document(s) Reported Physicians See Note Reported [facility] ([facility]) Note: Reported Physicians:Ordering: SOHAIL RAMAN [id number] V.Attending: JEFFERY SANDERSONConsulting: Nydia Garcia JroAdmitting: Long MISHRA To: Marco SANDERSON To: Zee ValdezynCopdonovan To: Sabine Garcia Jr To: REHAN MISHRA ID Date Data Source [id number] 11/11/2020 09:45:00 PM EDT [facility] ([facility]) Name Value Range Interpretation Code Description Data Dayna rce(s) Supporting Document(s) BEDSIDE GLUCOSE 114 MG/DL Above high normal BEDSIDE GLUCO SE [facility] ([facility]) ID Date Data Source [id number] 11/11/2020 05:34:00 PM EDT [facility] ([facility]) Name Value Range Interpretation Code Description Data Dayna rce(s) Supporting Document(s) Reported Physicians See Note Reported [facility] ([facility]) Note: Reported Physicians:Ordering: SOHAIL RAMAN [id number] V.Attending: JEFFERY SANDERSONConsulting: Nydia Garcia JroAdmitting: Long MISHRA To: Marco SANDERSON To: Zee ValdezynCopdonovan To: Sabine Garcia Jr To: DANICA REHAN ID Date Data Source [id number] 11/11/2020 05:34:00 PM EDT [facility] ([facility]) Name Value Range Interpretation Code Description Data Dayna rce(s) Supporting Document(s) BEDSIDE GLUCOSE 119 MG/DL Above high normal BEDSIDE GLUCO SE [facility] ([facility]) ID Date Data Source [id number] 11/11/2020 12:10:00 PM EDT [facility] ([facility]) Name Value Range Interpretation Code Description Data Dayna rce(s) Supporting Document(s) Reported Physicians [facility] Note: Reported Physicians:Ordering: SOHAIL RAMAN [id number], JEFFERY SoniAttending: JEFFERY SANDERSONConsulting: Nydia Garcia JroAdmitting: Long MISHRA To: Marco SANDERSON To: Zee ValdezynCopdonovan To: Nydia Garcia JroCopy To: REHAN MISHRA ID Date Data Source [id number] 11/11/2020 12:10:00 PM EDT [facility] ([facility]) Name Value Range Interpretation Code Description Data Dayna rce(s) Supporting Document(s) BEDSIDE GLUCOSE 132 MG/DL Above high normal BEDSIDE GLUCO SE [facility]) ID Date Data Source [id number] 11/11/2020 05:53:00 AM EDT [facility] ([facility]) Name Value Range Interpretation Code Description Data Dayna rce(s) Supporting Document(s) Reported Physicians See Note Reported [facility] ([facility]) Note: Reported Physicians:Ordering: RO PERALTA [id number], REHAN MDAttending: JEFFERY SANDERSONConsulting: Nydia Garcia JroAdmitting: Long MISHRA To: Marco SANDERSON To: Long MISHRA To: Malaika ValdezCopdonovan To: Nils Garcia Jr ID Date Data Source [id number] 11/11/2020 05:53:00 AM EDT [facility] ([facility]) Name Value Range Interpretation Code Description Data Dayna rce(s) Supporting Document(s) GLUCOSE, FASTING 131 MG/DL Above high normal GLUCOSE, FAS TING [facility] ([facility]) BLOOD UREA NITROGEN 8 MG/DL Significant change down BLO OD UREA NITROGEN [facility] ([facility]) CREATININE FOR GFR 1.01 MG/DL Normal CREATININE FOR GF R [facility] ([facility]) GLOMERULAR FILTRATION RATE > 60.0 Normal GLOMERULA R FILTRATION RATE [facility] ([facility]) Note: Units are mL/min/1.73 m2 Chroni c Kidney Disease Staging per NKF: Stage I & II GFR >=60 Normal to Mildly Decreased Stage III GFR 30- 59 Moderately Decreased Stage IV GFR 15-29 Severely Decreased Stage V GFR <15 Very Little GFR Left ESRD GFR <15 on AREA OPERATIONS MANAGER SODIUM LEVEL 142 MEQ/L Normal SODIUM LEVEL [facility]) POTASSIUM SERUM 3.8 MEQ/L Normal P[facility]ASSIUM SERUM [facility] ([facility]) CARBON DIOXIDE LEVEL 28 MEQ/L Normal CARBON DIOXIDE LEVEL [facility]) CHLORIDE LEVEL 109 MEQ/L Above high normal CHLORIDE LEVEL [facility]) Anion gap in Body fluid 5 MEQ/L Below low normal ANION GAP [facility]) CALCIUM LEVEL 7.9 MG/DL Below low normal CALCIUM LEVEL [facility]) ID Date Data Source [id number] 11/11/2020 05:53:00 AM EDT [facility] ([facility]) Name Value Range Interpretation Code Description Data Dayna rce(s) Supporting Document(s) Reported Physicians See Note Reported Physici ans [facility] ([facility]) Note: Reported Physicians:Ordering: RO PERALTA [id number] MDAttending: JEFFERY SANDERSONConsulting: Ozzy Garcia Jrmitting: Long MISHRA To: Marco SANDERSON To: REHAN MISHRACopdonovan To: Zee ValdezynCopdonovan To: Nils Garcia Jr ID Date Data Source [id number] 11/11/2020 05:53:00 AM EDT [facility] ([facility]) Name Value Range Interpretation Code Description Data Dayna rce(s) Supporting Document(s) WHITE BLOOD COUNT 4.4 3/uL Normal WHITE BLOOD COUNT [facility]) RED BLOOD COUNT 4.07 6/uL Below low normal RED BLOOD COUN T [facility]) Hemoglobin [Mass/volume] in Mixed venous blood by Oximetry 12.2 g/dl Below low normal HEMOGLOBIN [facility]) Hematocrit [Pure volume fraction] of Blood by Automated count 35 .4 % Below low normal HEMATOCRIT [facility]) MEAN CORPUSCULAR VOLUME 87.0 fl Normal MEAN CORPUSC ULAR VOLUME [facility]) MEAN CORPUSCULAR HGB CONC 34.5 g/dl Normal MEAN CORPU SCULAR HGB CONC [facility] ([facility]) MEAN CORPUSCULAR HEMOGLOBIN 30.0 pg Normal MEAN COR PUSCULAR HEMOGLOBIN [facility]) RED CELL DISTRIBUTION WIDTH 13.2 % Normal RED CELL DISTRIBUTION WIDTH [facility] ([facility]) PLATELET COUNT, AUTOMATED 145 3/uL Below low normal PLAT ELET COUNT, AUTOMATED [facility] ([facility]) NUCLEATED RED BLOOD CELL % 0.0 % Normal NUCLEATED RED BLOOD CELL % [facility] ([facility]) ID Date Data Source [id number] 11/11/2020 05:48:00 AM EDT [facility] ([facility]) Name Value Range Interpretation Code Description Data Dayna rce(s) Supporting Document(s) Reported Physicians See Note Reported Physici ans [facility] ([facility]) Note: Reported Physicians:Ordering: SOHAIL RAMAN [id number] V.Attending: JEFFERY SANDERSONConsulting: Ozzy Garcia Jrmitting: Long MISHRA To: Marco SANDERSON To: Zee ValdezynCopdonovan To: Nydia Garcia JroCopy To: REHAN MISHRA ID Date Data Source [id number] 11/11/2020 05:48:00 AM EDT [facility] ([facility]) Name Value Range Interpretation Code Description Data Dayna rce(s) Supporting Document(s) BEDSIDE GLUCOSE 124 MG/DL Above high normal BEDSIDE GLUCO SE [facility] ([facility]) ID Date Data Source [id number] 11/10/2020 11:46:00 PM EDT [facility] ([facility]) Name Value Range Interpretation Code Description Data Dayna rce(s) Supporting Document(s) Reported Physicians See Note Reported Physici ans [facility] ([facility]) Note: Reported Physicians:Ordering: SOHAIL RAMAN [id number] V.Attending: JEFFERY SANDERSONConsulting: Nydia Garcia JroAdmitting: Long MISHRA To: Marco SANDERSON To: Zee ValdezynCopy To: Sabine Garcia Jr To: REHAN MISHRA ID Date Data Source [id number] 11/10/2020 11:46:00 PM EDT [facility] ([facility]) Name Value Range Interpretation Code Description Data Dayna rce(s) Supporting Document(s) BEDSIDE GLUCOSE 104 MG/DL Normal BEDSIDE GLUCOSE [facility]) ID Date Data Source [id number] 11/10/2020 05:17:00 PM EDT [facility] ([facility]) Name Value Range Interpretation Code Description Data Dayna rce(s) Supporting Document(s) Reported Physicians [facility] Note: Reported Physicians:Ordering: SOHAIL RAMAN [id number] V.Attending: JEFFERY SANDERSONConsulting: Ozzy Garcia Jrmitting: Long MISHRA To: Marco SANDERSON To: Zee ValdezynCopdonovan To: Sabine Garcia Jr To: REHAN MISHRA ID Date Data Source [id number] 11/10/2020 05:17:00 PM EDT [facility] ([facility]) Name Value Range Interpretation Code Description Data Dayna rce(s) Supporting Document(s) BEDSIDE GLUCOSE 139 MG/DL Above high normal BEDSIDE GLUCO SE [facility] ([facility]) ID Date Data Source [id number] 11/10/2020 11:58:00 AM EDT [facility] ([facility]) Name Value Range Interpretation Code Description Data Dayna rce(s) Supporting Document(s) Reported Physicians See Note Reported Physici ans [facility] ([facility]) Note: Reported Physicians:Ordering: SOHAIL RAMAN [id number], JEFFERY SoniAttending: JEFFERY SANDERSONConsulting: David GarciaAdmitting: REHAN MISHRACopdonovan To: Marco SANDERSON To: Zee ValdezynCopy To: Jose EdwardCopy To: REHAN MISHRA ID Date Data Source [id number] 11/10/2020 11:58:00 AM EDT [facility] ([facility]) Name Value Range Interpretation Code Description Data Dayna rce(s) Supporting Document(s) BEDSIDE GLUCOSE 170 MG/DL Above high normal BEDSIDE GLUCO [facility] ([facility]) ID Date Data Source [id number] 11/10/2020 06:00:00 AM EDT [facility] ([facility]) Name Value Range Interpretation Code Description Data Dayna rce(s) Supporting Document(s) Reported Physicians See Note Reported Physici [facility] ([facility]) Note: Reported Physicians:Ordering: RO PERALTA [id number], REHAN MDAttending: REHAN MISHRAConsulting: Mick GarciawardAdmitting: REHAN MISHRACopy To: LYDIA MISHRAITACopy To: Zee ValdezynCopy To: TERE DAVIDCopy To: David Garcia ID Date Data Source [id number] 11/10/2020 06:00:[facility] Name Value Range Interpretation Code Description Data Dayna rce(s) Supporting Document(s) Hemoglobin A1c in Blood 6.7 % Normal HEMOGLOBIN A [address] [place] [address] ([facility]) Note: REFERENCE RANGES: <=5.6% NOR MAL 5.7-6.4% SUGGESTS IMPAIRED GLUCOSE METABOLISM/PREDIABETIC >= 6.5% ABNORMAL Glucose mean value [Moles/volume] in Blood Estimated f rom glycated hemoglobin 146 MG/DL Above high normal ESTIMATED AVERAGE GLUCOSE BAUTISTA KATLYN [facility]) ID Date Data Source [id number] 11/10/2020 05:45:00 AM EDT [facility] ([facility]) Name Value Range Interpretation Code Description Data Dayna rce(s) Supporting Document(s) Reported Physicians See Note Reported Physici ans [facility] ([facility]) Note: Reported Physicians:Ordering: RO PERALTA [id number], REHAN MDAttending: LWANGA, ANITAConsulting: Jose, EdwardAdmitting: LWANGA, ANITACopy To: LWANGA, ANITACopy To: Courtney, JocelynCopy To: David Garcia ID Date Data Source [id number] 11/10/2020 05:45:00 AM EDT [place] ([facility]) Name Value Range Interpretation Code Description Data Dayna rce(s) Supporting Document(s) BEDSIDE GLUCOSE 171 MG/DL Above high normal BEDSIDE GLUCO SE [facility]) ID Date Data Source [id number] 11/10/2020 01:41:00 AM EDT [place] ([facility]) Name Value Range Interpretation Code Description Data Dayna rce(s) Supporting Document(s) Reported Physicians See Note Reported Physici ans [place] ([facility]) Note: Reported Physicians:Ordering: RO PERALTA [id number], REHAN MDAttending: DANICA ANITAConsulting: Jose, EdwardAdmitting: LWANGA, ANITACopy To: LWANGA, ANITACopy To: Courtney, JocelynCopy To: TERE, DAVIDCopy To: David Garcia ID Date Data Source [id number] 11/10/2020 01:41:00 AM EDT [place] ([facility]) Name Value Range Interpretation Code Description Data Dayna rce(s) Supporting Document(s) WHITE BLOOD COUNT 7.1 3/uL Normal WHITE BLOOD COUNT [facility]) RED BLOOD COUNT 4.43 6/uL Normal RED BLOOD COUNT BAUTISTA [facility]) Hemoglobin [Mass/volume] in Mixed venous blood by Oximetry 13.2 g/dl Below low normal HEMOGLOBIN [facility]) MEAN CORPUSCULAR VOLUME 85.1 fl Normal MEAN CORPUSC ULAR VOLUME [facility]) Hematocrit [Pure volume fraction] of Blood by Automated count 37 .7 % Below low normal HEMATOCRIT [facility]) MEAN CORPUSCULAR HGB CONC 35.0 g/dl Normal MEAN CORPU SCULAR HGB CONC [facility] ([facility]) MEAN CORPUSCULAR HEMOGLOBIN 29.8 pg Normal MEAN COR PUSCULAR HEMOGLOBIN [facility]) PLATELET COUNT, AUTOMATED 155 3/uL Normal PLATELET C OUNT, AUTOMATED [place] ([facility]) RED CELL DISTRIBUTION WIDTH 13.0 % Normal RED CELL DISTRIBUTION WIDTH [facility] ([facility]) NUCLEATED RED BLOOD CELL % 0.0 % Normal NUCLEATED RED BLOOD CELL % [facility] ([facility]) ID Date Data Source [id number] 11/10/2020 01:41:00 AM EDT [place] ([facility]) Name Value Range Interpretation Code Description Data Dayna rce(s) Supporting Document(s) Reported Physicians See Note Reported Physici ans [facility]) Note: Reported Physicians:Ordering: RO PERALTA [id number], REHAN MDAttending: REHAN MISHRAConsulting: David GarciaAdmitting: REHAN MISHRACopdonovan To: REHAN MISHRACopdonovan To: Malaika ValdezCopdonovan To: JOAO CARRANZACopdonovan To: David Garcia ID Date Data Source [id number] 11/10/2020 01:41:00 AM EDT [place] ([facility]) Name Value Range Interpretation Code Description Data Dayna rce(s) Supporting Document(s) GLUCOSE, FASTING 164 MG/DL Above high normal GLUCOSE, FAS TING [place] ([facility]) BLOOD UREA NITROGEN 18 MG/DL Normal BLOOD UREA NITRO GEN [place] ([facility]) GLOMERULAR FILTRATION RATE > 60.0 Normal GLOMERULA R FILTRATION RATE [facility] ([facility]) Note: Units are mL/min/1.73 m2 Chroni c Kidney Disease Staging per NKF: Stage I & II GFR >=60 Normal to Mildly Decreased Stage III GFR 30- 59 Moderately Decreased Stage IV GFR 15-29 Severely Decreased Stage V GFR <15 Very Little GFR Left ESRD GFR <15 on AREA OPER[employer] MANAGER CREATININE FOR GFR 1.18 MG/DL Normal CREATININE FOR GF R [facility] ([facility]) SODIUM LEVEL 140 MEQ/L Normal SODIUM LEVEL [facility] ( [facility]) POTASSIUM SERUM 3.7 MEQ/L Normal POTASSIUM SERUM LEIE [facility] ([facility]) CARBON DIOXIDE LEVEL 27 MEQ/L Normal CARBON DIOXIDE LEVEL [facility]) CHLORIDE LEVEL 105 MEQ/L Normal CHLORIDE LEVEL [facility] ([facility]) CALCIUM LEVEL 8.4 MG/DL Below low normal CALCIUM LEVEL [facility] ([facility]) Anion gap in Body fluid 8 MEQ/L Normal ANION GAP [facility] ([facility]) ID Date Data Source [id number] 11/10/2020 01:40:00 AM EDT [place] ([facility]) Name Value Range Interpretation Code Description Data Dayna rce(s) Supporting Document(s) Reported Physicians See Note Reported Physici [facility] ([facility]) Note: Reported Physicians:Ordering: RO PERALTA [id number], REHAN Drummondending: REHAN MISHRAConsulting: Jose EdwardAdmitting: REHAN MISHRACopdonovan To: REHAN MISHRACopy To: Malaika ValdezCopy To: David Garcia ID Date Data Source [id number] 11/10/2020 01:40:00 AM EDT [facility] ([facility]) Name Value Range Interpretation Code Description Data Dayna rce(s) Supporting Document(s) BEDSIDE GLUCOSE 165 MG/DL Above high normal BEDSIDE GLUCO SE [facility]) ID Date Data Source [id number] 11/09/2020 11:47:00 PM EDT [facility] ([facility]) Name Value Range Interpretation Code Description Data Dayna rce(s) Supporting Document(s) Reported Physicians See Note Reported [facility]) Note: Reported Physicians:Ordering: BIANKA Montez [id number], JOAO SelbyAttending: REHAN MISHRAConsulting: Jose EdwardAdmitting: LYDIA MISHRAITACopy To: DANICA ANITACopy To: Shade CARRANZA To: Courtney, Malaika ID Date Data Source [id number] 11/09/2020 11:47:00 PM EDT [place] ([facility]) Name Value Range Interpretation Code Description Data Dayna rce(s) Supporting Document(s) INFLUENZA A AMPLIFICATION NEGATIVE Normal INFLUENZA A AMPLIFICATION [facility] ([facility]) Note: Negative results do not preclude i nfluenza or RSV virus infection and should not be used as the sole basis for treatment or other patient management decisions. INFLUENZA B AMPLIFICATION NEGATIVE Normal INFLUENZA B AMPLIFICATION [facility] ([facility]) Note: Negative results do not preclude i nfluenza or RSV virus infection and should not be used as the sole basis for treatment or other patient management decisions. RSV AMPLIFICATION NEGATIVE Normal RSV AMPLIFICATION [facility] ([facility]) Note: Negative results do not preclude i nfluenza or RSV virus infection and should not be used as the sole basis for treatment or other patient management decisions. SARS COVID-19 AMPLIFICATION NEGATIVE Normal SARS COV ID-19 AMPLIFICATION [facility] ([facility]) Note: A false negative result may [...] pathogens. DISCLAIMER: Testing was performed using the [employer] SARS-CoV-2 test. This test was developed and its performance characteristics determined by [employer]. This test has not been FDA cleared [...] or revoked sooner. ID Date Data Source [id number] 11/09/2020 11:47:00 PM EDT [facility] Name Value Range Interpretation Code Description Data Dayna rce(s) Supporting Document(s) SARS coronavirus 2 RNA [Presence] in Res piratory specimen by DANNY with probe detection NEGATIVE [facility] This lab was ordered by [facility] a nd reported by [facility]. ID Date Data Source [id number] 10/09/2020 09:14:00 AM EDT [place] ([facility]) Name Value Range Interpretation Code Description Data Dayna rce(s) Supporting Document(s) Glucose [Mass/volume] in Urine collected for unspecified duratio n 215 Abnormal (applies to non-numeric results) Glucose [facility] ([facility]) ID Date Data Source [id number] 10/09/2020 09:13:00 AM EDT [place] ([facility]) Name Value Range Interpretation Code Description Data Dayna rce(s) Supporting Document(s) Hemoglobin A1c/Hemoglobin.total in Blood 6.9 Abnormal (applies to non-numeric results) HbA1C [facility] ([facility]) ID Date Data Source [id number] 07/14/2020 09:28:00 AM EDT [facility] ([facility]) Name Value Range Interpretation Code Description Data Dayna rce(s) Supporting Document(s) Hemoglobin A1c/Hemoglobin.total in Blood 6.6 Abnormal (applies to non-numeric results) HbA1C [facility] ([facility]) ID Date Data Source [id number] 07/14/2020 09:27:00 AM EDT [facility] ([facility]) Name Value Range Interpretation Code Description Data Dayna rce(s) Supporting Document(s) Glucose [Mass/volume] in Urine collected for unspecified duratio n 170 Abnormal (applies to non-numeric results) Glucose [facility] ([facility]) ID Date Data Source [id number] 03/26/2020 06:17:00 AM EST [facility] ([facility]) Name Value Range Interpretation Code Description Data Dayna rce(s) Supporting Document(s) Reported Physicians See Note Reported Physici ans [facility] ([facility]) Note: Reported Physicians:Ordering: Ralph asKennaAttending: Gonzalo, JamaicaCopy To: Gonzalo, JamaicaCopy To: Malaika Valdez ID Date Data Source [id number] 03/26/2020 06:17:00 AM [facility] ([facility]) Name Value Range Interpretation Code Description Data Dayna rce(s) Supporting Document(s) MALB URINE SIEMENS 44.4 MG/L Normal MALB URINE SIEMEN S [facility] ([facility]) CREATININE, URINE 72.6 MG/DL Normal CREATININE, URINE [place] ([facility]) EDE/CREAT RATIO 61.1 MCG/MG Above high normal EDE/CREAT RA NIA [facility] ([facility]) Note: THE [employer] STATES THAT MICROALBUMINURIA IS PRESENT IF THE MICROALBUMIN/CREATININE RATIO EXCEEDS 30 MCG/MG. THE THRESHOLD FOR CLINICAL ALBUMINURIA IS REACHED AT 300 MCG/MG. THE CLASSIFICATION OF A PATIENT SHOULD BE BASED UPON AT LEAST 2 OF 3 ABNORMAL RESULTS ON SPECIMENS COLLECTED WITHIN A 3 TO 6 MONTH TIME FRAME. ID Date Data Source [id number] 03/26/2020 06:14:00 AM [facility] ([facility]) Name Value Range Interpretation Code Description Data [facility] rce(s) Supporting Document(s) Reported Physicians See Note Reported Physici ans [place] ([facility]) Note: Reported Physicians:Ordering: Cristóbal Camposending: Geri Sánchez To: Geri Sánchez To: Malaika Valdez ID Date Data Source [id number] 03/26/2020 06:14:00 AM [facility] ([facility]) Name Value Range Interpretation Code Description Data [facility] rce(s) Supporting Document(s) WHITE BLOOD COUNT 6.0 3/uL Normal WHITE BLOOD COUNT [place] ([facility]) Hemoglobin [Mass/volume] in Mixed venous blood by Oximetry 14.3 g/d l Normal HEMOGLOBIN [facility] ([facility]) MEAN CORPUSCULAR VOLUME 87.1 fl Normal MEAN CORPUSC ULAR VOLUME [facility] ([facility]) Hematocrit [Pure volume fraction] of Blood by Automated count 41 .9 % Below low normal HEMATOCRIT [facility]) RED BLOOD COUNT 4.81 6/uL Normal RED BLOOD COUNT BAUTISTA [facility] ([facility]) RED CELL DISTRIBUTION WIDTH 13.2 % Normal RED CELL DISTRIBUTION WIDTH [facility]) MEAN CORPUSCULAR HEMOGLOBIN 29.7 pg Normal MEAN COR PUSCULAR HEMOGLOBIN [facility] ([facility]) MEAN CORPUSCULAR HGB CONC 34.1 g/dl Normal MEAN CORPU SCULAR HGB CONC [facility] ([facility]) NUCLEATED RED BLOOD CELL % 0.0 % Normal NUCLEATED RED BLOOD CELL % [facility] ([facility]) PLATELET COUNT, AUTOMATED 155 3/uL Normal PLATELET C OUNT, AUTOMATED [facility] ([facility]) ID Date Data Source [id number] 03/26/2020 06:14:00 AM EST [facility] ([facility]) Name Value Range Interpretation Code Description Data Dayna rce(s) Supporting Document(s) Reported [facility]: Reported Physicians:Ordering: Kenna CamposAttending: Geri Sánchez To: Kenna SánchezCopdonovan To: Malaika Valdez ID Date Data Source [id number] 03/26/2020 06:14:00 AM EST [facility] ([facility]) Name Value Range Interpretation Code Description Data Dayna rce(s) Supporting Document(s) TOTAL 25(OH) VITAMIN D 46.0 NG/ML Normal TOTAL 25(OH) VITAMIN D [facility]) ID Date Data Source [id number] 03/26/2020 06:14:00 AM EST [facility] ([facility]) Name Value Range Interpretation Code Description Data Dayna rce(s) Supporting Document(s) Reported Phys[facility] Note: Reported Physicians:Ordering: Kenna CamposAttending: Kenna SánchezCopdonovan To: Kenna SánchezCopdonovan To: Malaika Valdez ID Date Data Source [id number] 03/26/2020 06:14:00 AM EST [facility] ([facility]) Name Value Range Interpretation Code Description Data Dayna rce(s) Supporting Document(s) TRIGLYCERIDES LEVEL 115 MG/DL Normal TRIGLYCERIDES LE KATHY [facility] ([facility]) CHOLESTEROL LEVEL 137 MG/DL Normal CHOLESTEROL LEVEL [facility] ([facility]) NON-HDL-C 104 MG/DL Normal NON-HDL-C [facility] ([facility]) LDL CHOLESTEROL 81 MG/DL Normal LDL CHOLESTEROL [facility]) HDL CHOLESTEROL 33 MG/DL Below low normal HDL CHOLESTERO L [facility] ([facility]) CHOLESTEROL RISK RATIO 4.151 Normal CHOLESTEROL R ISK RATIO [facility] ([facility]) ID Date Data Source [id number] 03/26/2020 06:14:00 AM [facility] ([facility]) Name Value Range Interpretation Code Description Data Dayna rce(s) Supporting Document(s) Reported Physicians See Note Reported Physici rbenden [facility]) Note: Reported Physicians:Ordering: Kenna CamposAttending: Geri Sánchez To: Gonzalo RaleighCopdonovan To: Malaika Valdez ID Date Data Source [id number] 03/26/2020 06:14:00 AM [facility] ([facility]) Name Value Range Interpretation Code Description Data Dayna rce(s) Supporting Document(s) GLUCOSE, FASTING 131 MG/DL Above high normal GLUCOSE, FAS TING [facility] ([facility]) GLOMERULAR FILTRATION RATE 58.2 Normal GLOMERULA R FILTRATION RATE [facility]) Note: Units are mL/min/1.73 m2 Chroni c Kidney Disease Staging per NKF: Stage I & II GFR >=60 Normal to Mildly Decreased Stage III GFR 30- 59 Moderately Decreased Stage IV GFR 15-29 Severely Decreased Stage V GFR <15 Very Little GFR Left ESRD GFR <15 on AREA OPERATIONS MANAGER CREATININE FOR GFR 1.27 MG/DL Normal CREATININE FOR GF R [facility] ([facility]) BLOOD UREA NITROGEN 19 MG/DL Above high normal BLOOD URE A [place]ITROGEN [facility] ([facility]) SODIUM LEVEL 140 MEQ/L Normal SODIUM LEVEL [facility]) POTASSIUM SERUM 3.9 MEQ/L Normal POTASSIUM SERUM [facility]) CHLORIDE LEVEL 105 MEQ/L Normal CHLORIDE LEVEL [facility]) CARBON DIOXIDE LEVEL 29 MEQ/L Normal CARBON DIOXIDE LEVEL [facility]) CALCIUM LEVEL 9.3 MG/DL Normal CALCIUM LEVEL [facility]) Anion gap in Body fluid 6 MEQ/L Below low normal ANION GAP [facility]) ALT/SGPT 35 U/L Normal ALT/SGPT [facility]) Alkaline phosphatase [Enzymatic activity/volume] in Se rum, Plasma or Blood 44 U/L Below low normal ALKALINE PHOSPHATASE [facility]) AST/SGOT 19 U/L Normal AST/SGOT [facility]) Albumin [Mass/volume] in Blood by Bromocresol purple ( BCP) dye binding method 4.0 GM/DL Normal ALBUMIN [facility]) TOTAL PROTEIN 6.7 GM/DL Normal TOTAL PROTEIN [facility]) BILIRUBIN,TOTAL 0.6 MG/DL Normal BILIRUBIN,TOTAL GREE [facility]) ALBUMIN/GLOBULIN RATIO 1.5 Normal ALBUMIN/GLOBU TOVA RATIO [facility]) ID Date Data Source [id number] 01/01/2020 01:41:00 PM EST [facility] ([facility]) Name Value Range Interpretation Code Description Data Dayna rce(s) Supporting Document(s) Glucose [Mass/volume] in Urine collected for unspecified duration 1 30 Normal Glucose [facility]) ID Date Data Source [id number] 01/01/2020 01:40:00 PM [facility] ([facility]) Name Value Range Interpretation Code Description Data Dayna rce(s) Supporting Document(s) Hemoglobin A1c/Hemoglobin.total in Blood 6.6 Abnormal (applies to non-numeric results) HbA1C [facility]) Procedure Social History No Information Vital Signs ID Date Data Source [id number] Name Value Range Interpretation Code Description Data Source(s) Body mass index (BMI) [Ratio] 41.7 kg/m2 41.7 k g/m2 [facility]) Body surface area Derived from formula 2.15 m2 2.15 m2 [facility]) Oxygen saturation in Arterial blood by Pulse oximetry 98 % 98 % [facility]) Inhaled oxygen flow rate 0 L/min 0 L/min [facility] ([facility]) Inhaled oxygen concentration 21 % 21 % [facility] ([facility]) Systolic blood pressure 138 mm[Hg] 138 mm[Hg] [facility] ([facility]) Diastolic blood pressure 88 mm[Hg] 88 mm[Hg] [facility] ([facility]) Heart rate 74 /min 74 /min [facility] ([facility]) Respiratory rate 24 /min 24 /min [facility] ([facility]) Body temperature 97.6 [degF] 97.6 [degF] [facility] ([facility]) Body height 64.5 [in_i] 64.5 [in_i] [facility] ([facility]) Body weight 247 [lb_av] 247 [lb_av] [facility] ([facility]) Body mass index (BMI) [Ratio] 43.4 kg/m2 43.4 k g/m2 [facility] ([facility]) Body surface area Derived from formula 2.19 m2 2.19 m2 [facility] ([facility]) Oxygen saturation in Arterial blood by Pulse oximetry 96 % 96 % [facility] ([facility]) Systolic blood pressure 148 mm[Hg] 148 mm[Hg] [facility] ([facility]) Diastolic blood pressure 74 mm[Hg] 74 mm[Hg] [facility] ([facility]) Heart rate 88 /min 88 /min [facility] ([facility]) Respiratory rate 20 /min 20 /min [facility] ([facility]) Body temperature 98.2 [degF] 98.2 [degF] [facility] ([facility]) Body height 64.5 [in_i] 64.5 [in_i] [facility] ([facility]) Body weight 257 [lb_av] 257 [lb_av] [facility] ([facility]) Body mass index (BMI) [Ratio] 45.1 kg/m2 45.1 k g/m2 [facility] ([facility]) Body surface area Derived from formula 2.22 m2 2.22 m2 [facility] ([facility]) Oxygen saturation in Arterial blood by Pulse oximetry 97 % 97 % [facility] ([facility]) Systolic blood pressure 138 mm[Hg] 138 mm[Hg] [facility] ([facility]) Diastolic blood pressure 90 mm[Hg] 90 mm[Hg] [facility] ([facility]) Heart rate 68 /min 68 /min [facility] ([facility]) Respiratory rate 24 /min 24 /min [facility] ([facility]) Body temperature 98.2 [degF] 98.2 [degF] [facility] ([facility]) Body height 64.5 [in_i] 64.5 [in_i] [facility] ( [facility]) Body weight 267 [lb_av] 267 [lb_av] [facility] ([facility]) Body weight 121.11 kg 121.11 kg [facility] Body mass index (BMI) [Ratio] 44.43 kg/m2 44.43 kg/m2 [facility] Systolic blood pressure 126 mm[Hg] 126 mm[Hg] [facility] Diastolic blood pressure 76 mm[Hg] 76 mm[Hg] [facility] Heart rate 68 /min 68 /min [facility] Respiratory rate 16 /min 16 /min [facility] Body height 165.1 cm 165.1 cm [facility] Inhaled oxygen flow rate 0 L/min 0 L/min [facility] ([facility]) Inhaled oxygen concentration 21 % 21 % [facility] ([facility]) Systolic blood pressure 134 mm[Hg] 134 mm[Hg] [facility] Diastolic blood pressure 74 mm[Hg] 74 mm[Hg] [facility] ([facility]) Heart rate 63 /min 63 /min [facility]) Respiratory rate 22 /min 22 /min [facility] ([facility]) Body temperature 95.7 [degF] 95.7 [degF] [facility] ([facility]) Body height 64.5 [in_i] 64.5 [in_i] [facility] ([facility]) Body weight 264 [lb_av] 264 [lb_av] [facility] ([facility]) Body mass index (BMI) [Ratio] 44.6 kg/m2 44.6 k g/m2 [facility] ([facility]) Body surface area Derived from formula 2.21 m2 2.21 m2 [facility] ([facility]) Oxygen saturation in Arterial blood by Pulse oximetry 97 % 97 % [facility] ([facility]) Systolic blood pressure 132 mm[Hg] 132 mm[Hg] [facility] Diastolic blood pressure 80 mm[Hg] 80 mm[Hg] [facility] Heart rate 64 /min 64 /min [facility] Respiratory rate 16 /min 16 /min [facility] Body height 165.1 cm 165.1 cm [facility] Body weight 118.842 kg 118.842 kg [facility] Body mass index (BMI) [Ratio] 43.60 kg/m2 43.60 kg/m2 [facility] Heart rate 78 /min 78 /min [facility] ([facility]) Body mass index (BMI) [Ratio] 44.4 kg/m2 44.4 k g/m2 [facility] ([facility]) Body surface area Derived from formula 2.21 m2 2.21 m2 [facility] ([facility]) Oxygen saturation in Arterial blood by Pulse oximetry 95 % 95 % [facility] ([facility]) Inhaled oxygen flow rate 0 L/min 0 L/min [facility] ([facility]) Inhaled oxygen concentration 21 % 21 % [facility] ([facility]) Systolic blood pressure 138 mm[Hg] 138 mm[Hg] [facility] ([facility]) Diastolic blood pressure 78 mm[Hg] 78 mm[Hg] [facility] ([facility]) Respiratory rate 22 /min 22 /min [facility] ([facility]) Body temperature 96.9 [degF] 96.9 [degF] [facility] ([facility]) Body height 64.5 [in_i] 64.5 [in_i] [facility] ([facility]) Body weight 263 [lb_av] 263 [lb_av] [facility] ([facility]) Patient Treatment Plan of Care Planned Activity Planned Date Details Description Data Source (s) pantoprazole 40 MG Delayed Release Oral Tablet 12/15/2020 12:00:00 AM EDT [facility] ([facility]) pantoprazole 40 MG Delayed Release Oral Tablet 12/11/2020 12:00:00 AM EDT [facility] ([facility]) Sucralfate 1000 MG Oral Tablet 11/24/2020 12:00:00 AM EDT [facility] ([facility]) Amlodipine 5 MG Oral Tablet 11/24/2020 12:00:00 AM EDT [facility] ([facility]) pantoprazole 40 MG Delayed Release Oral Tablet 11/18/2020 12:00:00 AM EDT [facility] ([facility]) Metoclopramide 10 MG Oral Tablet [Reglan] 11/18/2020 12:00:00 AM ED T [facility] ([facility]) Accu-Chek Yi Plus In Vitro Strip 10/23/2020 12:00:00 AM EDT [facility] ([facility]) Esomeprazole 40 MG Delayed Release Oral Capsule [Nexiu m] 10/09/2020 12:00:00 AM EDT [facility] ([facility]) Accu-Chek Soft Touch Lancets Miscellaneous 10/09/2020 12:00:00 AM E DT [facility] ([facility]) SM Aspirin Adult Low Strength 81 MG Oral Tablet Delaye d Release 10/09/2020 12:00:00 AM EDT [facility] ([facility]) Atenolol 50 MG Oral Tablet [Tenormin] 10/09/2020 12:00:00 AM EDT [facility] ([facility]) Ergocalciferol 10541 UNT Oral Capsule [Drisdol] 10/09/2020 12:00:00 AM EDT [facility] ([facility]) Fenofibrate 48 MG Oral Tablet 10/09/2020 12:00:00 AM EDT [facility] ([facility]) Hydrochlorothiazide 25 MG Oral Tablet 10/09/2020 12:00:00 AM EDT [facility]) Klor-Con M20 20 MEQ Oral Tablet Extended Release 10/09/2020 12:00:0 0 AM EDT [facility]) Losartan Potassium 100 MG Oral Tablet 10/09/2020 12:00:00 AM EDT [facility]) Metformin hydrochloride 500 MG Oral Tablet 10/09/2020 12:00:00 AM E [facility]) Simvastatin 80 MG Oral Tablet 10/09/2020 12:00:[address] [facility]) Fenofibrate 48 MG [facility] K[facility]-Con M20 20 MEQ Oral Tablet Extended Release 07/14/2020 12:00:0 0 AM EDT [facility]) Losartan Potassium 100 MG Oral Tablet 07/14/2020 12:00:[address] [facility]) Metformin hydrochloride 500 MG Oral Tablet 07/14/2020 12:00:00 AM E [facility]) Esomeprazole 40 MG Delayed Release Oral Capsule [Nexiu m] 07/14/2020 12:00:00 AM EDT [facility]) Simvastatin 80 MG Oral Tablet 07/14/2020 12:00:00 AM EDT [facility]) Atenolol 50 MG Oral Tablet [Tenormin] 07/14/2020 12:00:00 AM EDT [facility]) Ergocalciferol 32507 UNT Oral Capsule [Drisdol] 07/14/2020 12:00:00 AM EDT [facility]) Hydrochlorothiazide 25 MG Oral Tablet 07/14/2020 12:00:00 AM EDT [facility]) Accu-Chek Yi Plus In Vitro Strip 07/14/2020 [facility] Ergocalciferol 01608 UNT Oral Capsule [Drisdol] 07/14/2020 12:00:00 AM EDT [facility] ([facility]) Accu-Chek Soft Touch Lancets Miscellaneous 07/14/2020 12:00:00 AM E DT [facility] ([facility]) Fenofibrate 48 MG Oral Tablet 07/14/2020 12:00:00 AM EDT [facility] ([facility]) SM Aspirin Adult Low Strength 81 MG Oral Tablet Delaye d Release 07/10/2020 [facility] Ergocalciferol 46957 UNT Oral Capsule [Drisdol] 2020 12:00:00 AM [facility] ([facility]) Aspirin Adult Low Strength 81 MG Oral Tablet Delayed R elease 2020 12:00:00 AM [facility] ([facility]) Fenofibrate 48 MG Oral Tablet 04/22/2020 12:00:00 AM [facility] ([facility]) Hydrochlorothiazide 25 MG Oral Tablet 04/16/2020 12:00:00 AM [facility] ([facility]) Klor-Con M20 20 MEQ Oral Tablet Extended Release 04/16/2020 12:00:0 0 AM [facility] ([facility]) Losartan Potassium 100 MG Oral Tablet 04/16/2020 12:00:00 AM EST [facility] ([facility]) Metformin hydrochloride 500 MG Oral Tablet 04/16/2020 12:00:[address] [facility] ([facility]) Esomeprazole 40 MG Delayed Release Oral Capsule [Nexiu m] 04/16/2020 12:00:00 AM [facility] ([facility]) Simvastatin 80 MG Oral Tablet 04/16/2020 12:00:00 AM [facility] ([facility]) Atenolol 50 MG Oral Tablet [Tenormin] 04/16/2020 12:00:00 AM EST [facility] ([facility]) Fenofibrate 48 MG Oral Tablet [Tricor] 04/16/2020 12:00:00 AM [facility] ([facility]) Aspirin Adult Low Strength 81 MG Oral Tablet Delayed R elease 04/16/2020 12:00:00 AM [facility] ([facility]) Ergocalciferol 59567 UNT Oral Capsule [Drisdol] 04/16/2020 12:00:00 AM [facility] ([facility]) Fenofibrate 48 MG Oral Tablet 01/02/2020 12:00:00 AM [facility] Losartan Potassium 100 MG Oral Tablet 01/02/2020 12:00:00 AM [facility] Ergocalciferol 80186 UNT Oral Capsule [Drisdol] 01/01/2020 12:00:00 AM [facility]) Accu-Chek Yi Plus In Vitro Strip 01/01/2020 12:00:00 AM [facility] ([facility]) Aspirin 81 MG Delayed Release Oral Tablet [Ecotrin] 01/01/20 20 12:00:00 AM [facility]) Hydrochlorothiazide 25 MG Oral Tablet 01/01/2020 12:00:00 AM [facility]) Klor-Con M20 20 MEQ Oral Tablet Extended Release 01/01/2020 12:00:0 0 AM [facility] ([facility]) Losartan Potassium 100 MG Oral Tablet 01/01/2020 12:00:00 AM [facility] ([facility]) Metformin hydrochloride 500 MG Oral Tablet 01/01/2020 12:00:[address] [facility] ([facility]) Esomeprazole 40 MG Delayed Release Oral Capsule [Nexiu m] 01/01/2020 12:00:00 AM [facility] ([facility]) Simvastatin 80 MG Oral Tablet 01/01/2020 12:00:00 AM [facility] ([facility]) Fenofibrate 48 MG Oral Tablet [Tricor] 01/01/2020 12:00:00 AM [facility]) Atenolol 50 MG Oral Tablet [Tenormin] 01/01/2020 12:00:00 AM EST [facility] ([facility]) Metformin hydrochloride 500 MG Oral Tablet 11/15/2019 12:00:00 AM E [facility] ([facility]) Losartan Potassium 100 MG Oral Tablet 10/18/2019 12:00:00 AM EDT [facility] ([facility]) Accu-Chek Soft Touch Lancets Miscellaneous 10/02/2019 12:00:00 AM E [facility] ([facility]) Ergocalciferol 37633 UNT Oral Capsule [Drisdol] 10/02/2019 12:00:00 AM EDT [facility]) Hydrochlorothiazide 25 MG Oral Tablet 10/02/2019 12:00:00 AM EDT [facility]) Klor-Con M20 20 MEQ Oral Tablet Extended Release 10/02/2019 12:00:0 0 AM EDT [facility]) Metformin hydrochloride 500 MG Oral Tablet 10/02/2019 12:00:00 AM E [facility] ([facility]) Esomeprazole 40 MG Delayed Release Oral Capsule [Nexiu m] 10/02/2019 12:00:00 AM EDT [facility]) Simvastatin 80 MG Oral Tablet 10/02/2019 12:00:00 AM EDT [facility] ([facility]) Atenolol 50 MG Oral Tablet [Tenormin] 10/02/2019 12:00:00 AM EDT [facility] ([facility]) Fenofibrate 48 MG Oral Tablet [Tricor] 10/02/2019 12:00:00 AM EDT [facility] ([facility]) Accu-Chek Yi Plus In Vitro Strip 09/04/2019 12:00:00 AM EDT [facility]) Aspirin 81 MG Delayed Release Oral Tablet [Ecotrin] 08/15/19 20 12:00:00 AM EDT [facility] ([facility]) Losartan Potassium 25 MG Oral Tablet [facility] Fenofibrate 67 MG Oral Capsule [facility]
[2021-01-01 14:50] LABS: ALBUMIN 3.5 GM/DL (3.2-5.2); ALT/SGPT 30 U/L (12-78); BILIRUBIN,DIRECT 0.2 MG/DL (0.0-0.2); BILIRUBIN,TOTAL 0.7 MG/DL (0.2-1.0); TOTAL PROTEIN 6.3 GM/DL (6.4-8.2)
[2021-01-01 15:02] LABS: LIPASE 203 U/L (73-393)
[2021-01-01 16:09] VITALS: BP 139/63
--- NOTE | 2021-01-02 07:49 | ECGEPIP ---
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
== END 2021-01-01 16:23 | disposition home or self-care (01) ==
LOC: M ED 12:22
DX: B34.9 Viral infection, unspecified (principal); E11.9 Type 2 diabetes mellitus without complications; I11.9 Hypertensive heart disease without heart failure; E78.5 Hyperlipidemia, unspecified; J44.9 Chronic obstructive pulmonary disease, unspecified; R11.0 Nausea; Z87.891 Personal history of nicotine dependence; Z79.899 Other long term (current) drug therapy

== ENCOUNTER 2021-01-30 09:50 | Emergency (ER) | payer OTHER, MEDICAID ==
[~2021-01-30] VITALS: Ht 170.2 cm; Wt 119.1 kg
[2021-01-30] MEDS ORDERED: GI COCKTAIL 50ML BTL(HYOSCYAMINE/MAALOX/LIDOCAINE VISCOUS)(1:3:1) PO ONE (10:05)
[2021-01-30] MEDS ORDERED: ASPIRIN 81 MG CHEW TABLET PO ONE (10:05)
--- NOTE | 2021-01-30 10:18 | REP ---
INDICATION: CHEST PAIN. COMPARISON: 01/01/2021. TECHNIQUE: Single portable AP view of the chest was performed. FINDINGS: There is no acute infiltrate or pulmonary edema. Lungs are clear. The heart is not significantly enlarged. The mediastinal silhouette is unremarkable. The visualized osseous structures are intact. IMPRESSION: No acute pulmonary disease. <Electronically signed by Benedict Posey > 01/30/21 [id number]
--- OUTSIDE RECORDS SUMMARY | 2021-01-30 10:25 | CCD ---
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 Diagnosis Active Kiersten Marolf 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 Active Kiersten Marolf Essential (primary) hypertension Essential (primary) hypertensio n Diagnosis Active Kiersten Marolf Polyosteoarthritis, unspecified Polyosteoarthritis, unspecified Diagnosis Active Kiersten Marolf Nontoxic multinodular goiter Nontoxic multinodular goiter Diagnosis Ac tive Kiersten Marolf Fatty (change of) liver, not elsewhere classified Fatt y (change of) liver, not elsewhere classified Diagnosis Active Kiersten Marolf Gastro-esophageal reflux disease without esophagitis G isidro-esophageal reflux disease without esophagitis Diagnosis Active Magnus angella Dorie Marolf Hyperlipidemia, unspecified Hyperlipidemia, unspecified Diagnosis Active Kiersten Marolf Obesity, unspecified Obesity, unspecified Diagnosis Active Kiersten Marolf Body mass index [BMI] 40.0-44.9, adult Body mass index [BMI] 40.0-44.9, adult Diagnosis Active Kiersten Marolf Presence of coronary angioplasty implant and graft Pre sence of coronary angioplasty implant and graft Diagnosis Active Kiersten Marolf 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 (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) use of aspirin 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 (current) use of as pirin Diagnosis Active Roslyn Graham 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 (current) use of oral hypoglycemic drugs Rene g term (current) use of oral hypoglycemic drugs Diagnosis Active Roslyn Graham Personal history of malignant neoplasm of prostate Per jessie history of malignant neoplasm of prostate Diagnosis Active Roslyn Graham 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) Diagnosis Active Roslyn Graham Personal history of other infectious and parasitic dis eases Personal history of other infectious and parasitic diseases Diagnosis Active Roslyn Graham Personal history of nicotine dependence Personal history of nicotine dependence Diagnosis Active Roslyn Graham Acute pancreatitis with uninfected necrosis, unspecifi ed Acute pancreatitis with uninfected necrosis, unspecified Diagnosis Active Roslyn Graham Gastritis, unspecified, with bleeding Gastritis, unspecified , with bleeding Diagnosis Active Roslyn Graham Pain frequent pain Pain Mgmt Active 2020-11-14 10:15:00 [facility] Respiratory dyspnea present Respiratory Active 2020-11-14 10:15:00 [facility] Nutrition nutritional restrictions Nutrition Active 2020-11-14 10:15:00 [facility] Activity ADL assistance required Activity Active 2020-11-14 10:15:00 [facility] Activity self-care deficit Activity Active 2020-11-14 10:15:00 [facility] Safety knowledge/skill deficit: pt Safety Resolved 10:15:00 2020-12-21 10:03:00 [facility] Safety fall risk factor present Safety Active 2020-11-14 10:15:00 [facility] Safety risk for hospitalization Safety Active 2020-11-14 10:15:00 [facility] Medication oral med assistance required Meds Active 2020-11-14 10:15 :00 [facility] Musculoskeletal transfer assistance required Musculoskeletal Active 2020-11-14 10:15:00 [facility] Musculoskeletal requires human assist to leave home Musculoskeletal Active 2020-11-14 10:15:00 [facility] Cardio hypertension Cardiovascular Active 2020-12-21 10:03:00 Roslyn Graham Cardio knowledge/skill deficit: pt Cardiovascular Active 2020-11 10:03:00 Roslyn Graham Cardio knowledge/skill deficit: cg Cardiovascular Active 2020-11 10:03:00 Kiersten Miladisjaxnayla Endo/Toni glucose tolerance problem Endo/Toni Active 2020-12-21 10:03:0 0 Kiersten Miladisjaxnayla Endo/Toni diabetic foot care Endo/Toni Active 2020-12-21 10:03:00 Roslyn Oshea Miladisjaxnayla Medication potential clinically significant medication issue Meds Active 2020-12-21 10:03:00 Roslyn Leonnayla Musculoskeletal requires human assist to leave home Musculoskeletal Unknown 2020-12-21 10:03:00 Roslyn Leonnayla Balance/Endurance balance/coordination deficit PT/OT: Balance/En durance Resolved 2020-12-22 15:05:00 2021-01-08 09:00:00 Andreina Neri Gait/Locomotion problems gait deficit PT/OT: Gait/Locomotion Resolv ed 2020-12-22 15:05:00 2021-01-08 09:00:00 Andreina Neri Respiratory lung sounds deficit Respiratory Active 2021-01-01 11:00:00 Mercedes Estrada Allergies, Adverse Reactions, Alerts Allergy Name Allergy Type Status Severity Reaction(s) Onset Date Inacti ve Date Treating Clinician Comments Unknown None Active Unknown None Unknown No Known Allergies For This Patient Medications Ordered Medication Name Filled Medication Name Start Date Stop Da te Current Medication? Ordering Clinician Indication Dosage Frequency Signature (SIG) Comments Components hydroCHLOROthiazide 25 mg tablet hydroCHLOROthiazide 25 mg tablet 2 Yes Aleyda Valdez Unknown Unknown Aspirin Low Dose 81 mg tablet,delayed release Aspirin Low Dose 81 mg tablet,delayed release 2020-11-14 2020-12-21 Yes Aleyda Valdez U nknown Unknown fenofibrate 40 mg tablet fenofibrate 40 mg tablet 2020-11-14 Yes Aleyda Valdez Unknown Unknown atenoloL 50 mg tablet atenoloL 50 mg tablet 2020-11-14 Yes Larry Valdez Unknown Unknown metFORMIN 500 mg tablet metFORMIN 500 mg tablet 2020-11-14 Y es Aleyda Valdez Unknown Unknown Vitamin D2 1,250 mcg (50,000 unit) capsule Vitamin D2 1,250 mcg (50,000 unit) capsule 2020-11-14 2020-12-21 Yes Aleyda Valdez Unknown Unknown simvastatin 80 mg tablet simvastatin 80 mg tablet 2020-11-14 Yes Aleyda Valdez Unknown Unknown losartan 100 mg tablet losartan 100 mg tablet 2020-11-14 Yes Aleyda Valdez Unknown Unknown acetaminophen 500 mg tablet acetaminophen 500 mg tablet 2020-11-14 Yes Aleyda Valdez Unknown Unknown metoclopramide 10 mg tablet metoclopramide 10 mg tablet 2020-11-14 Yes Aleyda Bonillae Unknown Unknown pantoprazole 40 mg tablet,delayed release pantoprazole 40 mg tablet,delayed release 2020-11-14 2020-11-26 Yes Aleyda Valdez Unknown Unknown sucralfate 1 gram tablet sucralfate 1 gram tablet 2020-11-14 Yes Aleyda Valdez Unknown Unknown Travatan Z 0.004 % eye drops Travatan Z 0.004 % eye drops 2020-11-14 Yes Aleyda Bonillae Unknown Unknown multivitamin with minerals tablet multivitamin with minerals tab let 2020-11-14 Yes Aleyda Valdez Unknown Unknown Klor-Con M20 mEq tablet,extended release Klor-Con M20 mEq tablet,extended release 2020-11-14 Yes Aleyda Valdez Unknown Unknown omega 4-gei-adk-fish oil 1,000 mg (120 mg-180 mg) caps ule omega 1-gde-zjr-fish oil 1,000 mg (120 mg-180 mg) capsule 2020-11-14 Yes Aleyda Chad reid Unknown Unknown pantoprazole 40 mg tablet,delayed release pantoprazole 40 mg tablet,delayed release 2020-11-26 2020-12-21 Yes Aleyda Courtney Unknown Unknown amLODIPine 5 mg tablet amLODIPine 5 mg tablet 2020-11-26 2020-12-21 Y es Aleyda Bonillae Unknown Unknown pantoprazole 40 mg tablet,delayed release pantoprazole 40 mg tablet,delayed release 2020-12-21 Yes Aleyda Courtney Unknown Unknown sucralfate 1 gram tablet sucralfate 1 gram tablet 2020-12-21 Yes Aleyda Courtney Unknown Unknown Vitamin D2 1,250 mcg (50,000 unit) capsule Vitamin D2 1,250 mcg (50,000 unit) capsule 2020-12-21 Yes Aleyda Courtney Unknown Unknown amLODIPine 5 mg tablet amLODIPine 5 mg tablet 2020-12-21 Yes Aleyda Valdez Unknown Unknown fenofibrate nanocrystallized 48 mg tablet fenofibrate nanocrystallized 48 mg tablet 2020-12-21 Yes Aleyda Valdez Unknown Unknown Vital Signs Vital Name Observation Time Observation Value Comments SYSTOLIC mm[Hg] 2021-01-22 18:21:20 132 mm[Hg] mm[Hg] Method: Si t DIASTOLIC mm[Hg] 2021-01-22 18:21:20 84 mm[Hg] mm[Hg] Method: Si t PULSE 2021-01-22 18:21:20 75 /min /min RESP RATE 2021-01-22 18:21:20 18 /min /min TEMP 2021-01-22 18:21:20 98.4 [degF] Procedures This patient has no known procedures. Results This patient has no known results.
--- OUTSIDE RECORDS SUMMARY | 2021-01-30 10:25 | CCD ---
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
--- OUTSIDE RECORDS SUMMARY | 2021-01-30 10:27 | CCD ---
Author Author [facility] Organization [facility] Address Unknown Phone Unavailable Care Team Providers Care Observer Gravity Prospecting Name Role Phone Alphonso Valdez MD Unavailable Unavailable Amy, Alphonso Dai MD Unavailable Unavailable Amy, Alphonso Dai MD Unavailable Unavailable Amy, Alphonso Dai MD Unavailable Unavailable Amy, Alphonso Dai MD Unavailable Unavailable Amy, Alphonso Dai MD Unavailable Unavailable Amy, Alphonso Dai MD Unavailable Unavailable Amy, Alphonso Dai MD Unavailable Unavailable Amy, Alphonso Dai MD Unavailable Unavailable Amy, Alphonso Dai MD Unavailable Unavailable Amy, Alphonso Dai MD Unavailable Unavailable Amy, Alphonso Dai MD Unavailable Unavailable Amy, Alphonso Dai MD Unavailable Unavailable Amy, Alphonso Dai MD Unavailable Unavailable Amy, Alphonso Dai MD Unavailable Unavailable Amy, Alphonso Dai MD Unavailable Unavailable Amy, Alphonso Dai MD Unavailable Unavailable Amy, Alphonso Dai MD Unavailable Unavailable Amy, Alphonso Dai MD Unavailable Unavailable Amy, Alphonso Dai MD Unavailable Unavailable Amy, Alphonso Dai MD Unavailable Unavailable Amy, Alphonso Dai MD Unavailable Unavailable Amy, Alphonso Dai MD Unavailable Unavailable Amy, Alphonso Dai MD Unavailable Unavailable Amy, Alphonso Dai MD Unavailable Unavailable Amy, Alphonso Dai MD Unavailable Unavailable Amy, Alphonso Dai MD Unavailable Unavailable Amy, Alphonso Dai MD Unavailable Unavailable Amy, Alphonso Dai MD Unavailable Unavailable Amy, Alphonso Dai MD Unavailable Unavailable Amy, Alphonso Dai MD Unavailable Unavailable Amy, Alphonso Dai MD Unavailable Unavailable Amy, Alphonso Dai MD Unavailable Unavailable Amy, Alphonso Dai MD Unavailable Unavailable Amy, Alphonso Dai MD Unavailable Unavailable Amy, Alphonso Dai MD Unavailable Unavailable Amy, Alphonso Dai MD Unavailable Unavailable Amy, Alphonso Dai MD Unavailable Unavailable Amy, Alphonso Dai MD Unavailable Unavailable Amy, Alphonso Dai MD Unavailable Unavailable Amy, Alphonso Dai MD Unavailable Unavailable Amy, Alphonso Dai MD Unavailable Unavailable Amy, Alphonso Dai MD Unavailable Unavailable Amy, Alphonso Dai MD Unavailable Unavailable Amy, Alphonso Dai MD Unavailable Unavailable Amy, Alphonso Dai MD Unavailable Unavailable Amy, Alphonso Dai MD Unavailable Unavailable Amy, Alphonso Dai MD Unavailable Unavailable Amy, Alphonso Dai MD Unavailable Unavailable Amy, Alphonso Dai MD Unavailable Unavailable Amy, Alphonso Dai MD Unavailable Unavailable Amy, Alphonso Dai MD Unavailable Unavailable Amy, Alphonso Dai MD Unavailable Unavailable Amy, Alphonso Dai MD Unavailable Unavailable Amy, Alphonso Dai MD Unavailable Unavailable Amy, Alphonso Dai MD Unavailable Unavailable Amy, Alphonso Dai MD Unavailable Unavailable Amy, Alphonso Dai MD Unavailable Unavailable Amy, Alphonso Dai MD Unavailable Unavailable Amy, Alphonso Dai MD Unavailable Unavailable Amy, Alphonso Dai MD Unavailable Unavailable Amy, Alphonso Dai MD Unavailable Unavailable Amy, Alphonso Dai MD Unavailable Unavailable Amy, Alphonso Dai MD Unavailable Unavailable Amy, Alphonso Dai MD Unavailable Unavailable Amy, Alphonso Dai MD Unavailable Unavailable Amy, Alphonso Dai MD Unavailable Unavailable Amy, Alphonso Dai MD Unavailable Unavailable Amy, Alphonso Dai MD Unavailable Unavailable Amy, Alphonso Dai MD Unavailable Unavailable Amy, Alphonso Dai MD Unavailable Unavailable Amy, Alphonso Dai MD Unavailable Unavailable Amy, Alphonso Dai MD Unavailable Unavailable Amy, Alphonso Dai MD Unavailable Unavailable Amy, Alphonso Dai MD Unavailable Unavailable Amy, Alphonso Dai MD Unavailable Unavailable Amy, Alphonso Dai MD Unavailable Unavailable Amy, Alphonso Dai MD Unavailable Unavailable Amy, Alphonso Dai MD Unavailable Unavailable TURRIN, EDITH Unavailable Unavailable TURRIN, EDITH Unavailable Unavailable TURRIN, EDITH Unavailable Unavailable TURRIN, EDITH Unavailable Unavailable [place], N Armen ENTERPRISE SERVICES MANAGER Unavailable Unavailable [place], N Armen ENTERPRISE SERVICES MANAGER Unavailable Unavailable [place], N Armen ENTERPRISE SERVICES MANAGER Unavailable Unavailable [place], N Armen ENTERPRISE SERVICES MANAGER Unavailable Unavailable [place], N Armen ENTERPRISE SERVICES MANAGER Unavailable Unavailable [place], N Armen ENTERPRISE SERVICES MANAGER Unavailable Unavailable [place], N Armen ENTERPRISE SERVICES MANAGER Unavailable Unavailable [place], N Armen ENTERPRISE SERVICES MANAGER Unavailable Unavailable [place]obhan, N Armen ENTERPRISE SERVICES MANAGER Unavailable Unavailable Siobhan, N Armen ENTERPRISE SERVICES MANAGER Unavailable Unavailable Siobhan, N Armen ENTERPRISE SERVICES MANAGER Unavailable Unavailable Siobhan, N Armen ENTERPRISE SERVICES MANAGER Unavailable Unavailable Siobhan, N Armen ENTERPRISE SERVICES MANAGER Unavailable Unavailable [place], N Armen ENTERPRISE SERVICES MANAGER Unavailable Unavailable Siobhan, N Armen ENTERPRISE SERVICES MANAGER Unavailable Unavailable [place], N Armen ENTERPRISE SERVICES MANAGER Unavailable Unavailable Siobhan, N Armen ENTERPRISE SERVICES MANAGER Unavailable Unavailable [place], N Armen ENTERPRISE SERVICES MANAGER Unavailable Unavailable [place], N Armen ENTERPRISE SERVICES MANAGER Unavailable Unavailable [place], N Armen ENTERPRISE SERVICES MANAGER Unavailable Unavailable Siobhan, N Armen ENTERPRISE SERVICES MANAGER Unavailable Unavailable Siobhan, N Armen ENTERPRISE SERVICES MANAGER Unavailable Unavailable [place], N Armen ENTERPRISE SERVICES MANAGER Unavailable Unavailable Siobhan, N Armen ENTERPRISE SERVICES MANAGER Unavailable Unavailable Siobhan, N Armen ENTERPRISE SERVICES MANAGER Unavailable Unavailable [place], N Armen ENTERPRISE SERVICES MANAGER Unavailable Unavailable [place], N Armen ENTERPRISE SERVICES MANAGER Unavailable Unavailable [place], N Armen ENTERPRISE SERVICES MANAGER Unavailable Unavailable Siobhan, N Armen ENTERPRISE SERVICES MANAGER Unavailable Unavailable [place], N Armen ENTERPRISE SERVICES MANAGER Unavailable Unavailable [place], N Armen ENTERPRISE SERVICES MANAGER Unavailable Unavailable Siobhan, N Armen ENTERPRISE SERVICES MANAGER Unavailable Unavailable Siobhan, N Armen ENTERPRISE SERVICES MANAGER Unavailable Unavailable Gonzalo, Mariae Millerton ENTERPRISE SERVICES MANAGER Unavailable Unavailable [place], Mariae Millerton ENTERPRISE SERVICES MANAGER Unavailable Unavailable [place], Mariae Millerton ENTERPRISE SERVICES MANAGER Unavailable Unavailable Gonzalo, Mariae Millerton ENTERPRISE SERVICES MANAGER Unavailable Unavailable [place], Mariae Millerton ENTERPRISE SERVICES MANAGER Unavailable Unavailable [place], Mariae Kenna ENTERPRISE SERVICES MANAGER Unavailable Unavailable [place], Mariae Kenna ENTERPRISE SERVICES MANAGER Unavailable Unavailable [place], Mariae Millerton ENTERPRISE SERVICES MANAGER Unavailable Unavailable [place], Mariae Millerton ENTERPRISE SERVICES MANAGER Unavailable Unavailable [place], Mariae Millerton ENTERPRISE SERVICES MANAGER Unavailable Unavailable Gonzalo, Cisco Millerton ENTERPRISE SERVICES MANAGER Unavailable Unavailable Gonzalo, Cisco Millerton ENTERPRISE SERVICES MANAGER Unavailable Unavailable Gonzalo, Alexae Millerton ENTERPRISE SERVICES MANAGER Unavailable Unavailable Gonzalo, Alexae Millerton ENTERPRISE SERVICES MANAGER Unavailable Unavailable [place], Alexae Millerton ENTERPRISE SERVICES MANAGER Unavailable Unavailable [place], Alexae Millerton ENTERPRISE SERVICES MANAGER Unavailable Unavailable [place], Alexae Millerton ENTERPRISE SERVICES MANAGER Unavailable Unavailable Amy, Alphonso Dai MD Unavailable Unavailable Amy, Alphonso Dai MD Unavailable Unavailable Amy, Alphonso Dai MD Unavailable Unavailable Amy, Alphonso Dai MD Unavailable Unavailable Amy, Alphonso Dai MD Unavailable Unavailable Amy, Alphonso Dai MD Unavailable Unavailable Amy, Alphonso Dai MD Unavailable Unavailable Amy, Alphonso Dai MD Unavailable Unavailable Amy, Alphonso Dai MD Unavailable Unavailable Amy, Alphonso Dai MD Unavailable Unavailable Amy, Alphonso Dai MD Unavailable Unavailable Amy, Alphonso Dai MD Unavailable Unavailable Amy, Alphonso Dai MD Unavailable Unavailable Amy, Alphonso Dai MD Unavailable Unavailable Amy, Alphonso Dai MD Unavailable Unavailable Amy, Alphonso Dai MD Unavailable Unavailable Amy, Alphonso Dai MD Unavailable Unavailable Amy, Alphonso Dai MD Unavailable Unavailable Amy, Alphonso Dai MD Unavailable Unavailable Amy, Alphonso Dai MD Unavailable Unavailable Amy, Alphonso Dai MD Unavailable Unavailable Amy, Alphonso Dai MD Unavailable Unavailable Amy, Alphonso Dai MD Unavailable Unavailable Amy, Alphonso Dai MD Unavailable Unavailable Amy, Alphonso Dai MD Unavailable Unavailable Amy, Alphonso Dai MD Unavailable Unavailable Amy, Alphonso Dai MD Unavailable Unavailable Amy, Alphonso Dai MD Unavailable Unavailable Amy, Alphonso Dai MD Unavailable Unavailable Amy, Alphonso Dai MD Unavailable Unavailable Amy, Alphonso Dai MD Unavailable Unavailable Amy, Alphonso Dai MD Unavailable Unavailable Amy, Alphonso Dai MD Unavailable Unavailable Amy, Alphonso Dai MD Unavailable Unavailable Amy, Alphnoso Dai MD Unavailable Unavailable Amy, Alphonso Dai MD Unavailable Unavailable Amy, Alphonso Dai MD Unavailable Unavailable Amy, Alphonso Dai MD Unavailable Unavailable Amy, Alphonso Dai MD Unavailable Unavailable Amy, Alphonso Dai MD Unavailable Unavailable Amy, Alphonso Dai MD Unavailable Unavailable Amy, Alphonso Dai MD Unavailable Unavailable Amy, Alphonso Dai MD Unavailable Unavailable Aym, Alphonso Dai MD Unavailable Unavailable Amy, Alphonso Dai MD Unavailable Unavailable Amy, Alphonso Dai MD Unavailable Unavailable Amy, Alphonso Dai MD Unavailable Unavailable Amy, Alphonso Dai MD Unavailable Unavailable Amy, Alphonso Dai MD Unavailable Unavailable Amy, Alphonso Dai MD Unavailable Unavailable Amy, Alphonso Dai MD Unavailable Unavailable Amy, Alphonso Dai MD Unavailable Unavailable Amy, Alphonso Dai MD Unavailable Unavailable Amy, Alphonso Dai MD Unavailable Unavailable Amy, Alphonso Dai MD Unavailable Unavailable Amy, Alphonso Dai MD Unavailable Unavailable Amy, Alphonso Dai MD Unavailable Unavailable Amy, Alphonso Dai MD Unavailable Unavailable Amy, Alphonso Dai MD Unavailable Unavailable Amy, Alphonso Dai MD Unavailable Unavailable Amy, Alphonso Dai MD Unavailable Unavailable Amy, Alphonso Dai MD Unavailable Unavailable Amy, Alphonso Dai MD Unavailable Unavailable Amy, Alphonso Dai MD Unavailable Unavailable Amy, Alphonso Dai MD Unavailable Unavailable Amy, Alphonso Dai MD Unavailable Unavailable Amy, Alphonso Dai MD Unavailable Unavailable Amy, Alphonso Dai MD Unavailable Unavailable May, Alphonso Dai MD Unavailable Unavailable Amy, Alphonso Dai MD Unavailable Unavailable Amy, Alphonso Dai MD Unavailable Unavailable Amy, Alphonso Dai MD Unavailable Unavailable Amy, Alphonso Dai MD Unavailable Unavailable Amy, Alphonso Dai MD Unavailable Unavailable Amy, Alphonso Dai MD Unavailable Unavailable Amy, Alphonso Dai MD Unavailable Unavailable Amy, Alphonso Dai MD Unavailable Unavailable Amy, Alphonso Dai MD Unavailable Unavailable Amy, Alphonso Dai MD Unavailable Unavailable CHANLIEClAphonso PASCAL MD Unavailable Unavailable CHANLIECAlphonso PASCAL MD Unavailable Unavailable CHANAlphonso LUTHER MD Unavailable Unavailable CHANAlphonso LUTHER MD Unavailable Unavailable CHANAlphonso LUTHER MD Unavailable Unavailable CHANAlphonso LUTHER MD Unavailable Unavailable CHANLIAlphonso FORREST MD Unavailable Unavailable CHANLIAlphonso FORREST MD Unavailable Unavailable CHANAlphonso LUTHER MD Unavailable Unavailable CHANLIAlphonso FORREST MD Unavailable Unavailable CHANLIAlphonso FORREST MD Unavailable Unavailable Re-disclosure Warning The records [...] is protected by Article 27-F of the [facility] Public Health law. If you continue you may have access to information: Regarding HIV / AIDS; Provided by facilities licensed or operated by the [facility] Office of Mental Health; or Provided by the [facility] Office for People With Developmental Disabilities. If such information is present, then the following [facility] mandated warning applies: This information has been [...] law may result in a fine or mcc sentence or both. A general authorization for the release of medical or other information is NOT sufficient authorization for further disc losure. Allergies and Adverse Reactions Type Description Substance Reaction Status Data Source(s ) No Known Drug Allergies No Known Drug Allergies [facility] No Known Allergies NO KNOWN MEDICATION ALLERGIES NO KNOWN MEDICA TION ALLERGIES [facility] ([facility]) Family History Family Member Name Family Member Gender Family Member Status Date o f Status Description Data Source(s) Unknown Unknown Problem [facility] ([facility], ) Encounters Encounter Providers Location Date Indications Data Source(s ) Emergency Attender: EDITH SHAFERConsultant: Aleyda caro MD 01/07/2021 10:21:00 AM EST - 01/07/2021 02:03:00 PM [facility] Patient discharged. Outpatient Attender: Armen KAISER.[email or web address].[email or web address] 021 12:00:00 AM EST - 12/29/2020 01:21:28 PM EST [facility] Outpatient<td ID="encounterTypeDescripti onID0">TRANSITIONAL CARE MANAGEMENT</td><td>Aleyda Valdez MD</td><td>[facility],</td><td>12/22/2020</td><td>10:24AM</td><td>11/24/2020 11:59PM</td><td><content ID="encounterDiagnosisID0-0">Esophagitis</content>, <content ID="encounterDiagnosisID0-1">Acute Duodenitis</content>, <content ID="encounterDiagnosisID0-2">Anemia Normochromic, Normocytic</content>, <content ID="encounterDiagnosisID0-3">Essential Hypertension Benign</content>, <content ID="encounterDiagnosisID0-4">Hyperlipidemia</content>, <content ID="encounterDiagnosisID0-5">Diabetes Mellitus Type 2 in Obese</content>, <content ID="encounterDiagnosisID0-6">Coronary Artery Disease</content>, <content ID="encounterDiagnosisID0-7">Chronic Obstructive Pulmonary Disease</content></td> Attender: Aleyda Valdez MD [facility] 12/22/2020 10:24:00 AM EDT - 11/24/2020 11:59:00 PM ED T Coronary Artery DiseaseDiabetes Mellitus Type 2 in ObeseHyperlipidemiaAnemia Normochromic, NormocyticAcute DuodenitisEsophagitisChronic Obstructive Pulmonary DiseaseEssential Hypertension Benign [place] ([facility]) Coronary Artery Disease Diabetes Mellitus Type 2 in Obese Hyperlipidemia Anemia Normochromic, Normocytic Acute Duodenitis Esophagitis Chronic Obstructive Pulmonary Disease Essential Hypertension Benign Emergency Attender: RODRIGUEZ FISCHER MDConsultant: Giles Valdez MD 12/13/2020 07:59:00 AM EDT - 12/13/2020 10:50:00 AM EDT [facility] Patient discharged. Outpatient<td ID="encounterTypeDescripti onID1">HOSP I/P F/U</td><td>Kenna Sánchez NP</td><td>[facility]</td><td>11/24/2020</td><td>12:59PM</td><td>1:49PM</td><td><content ID="encounterDiagnosisID1-0">Duodenitis</content>, <content ID="encounterDiagnosisID1-1">Essential Hypertension Benign</content></td> Attender: Kenna Sánchez NP [facility] 11/24/2020 12:59:00 PM EDT - 11/24/2020 01:49:00 PM EDT DuodenitisEssential Hypertension Benign [place] ([facility]) Duodenitis Essential Hypertension Benign O Attender: Aleyda Valdez MD 11/14/2020 12:00:00 AM EDT [facility] ([facility]) Patient admitted. <td ID="encounterTypeDescriptionID3">STA NDARD OV</td><td>Kenna Sánchez NP</td><td>[facility]</td><td>10/09/2020</td><td>8:39AM</td><td>9:30AM</td><td><content ID="encounterDiagnosisID3-0">Essential Hypertension Benign</content>, <content ID="encounterDiagnosisID3-1">Diabetes Mellitus Type 2 Without Complication</content>, <content ID="encounterDiagnosisID3- 2">Hyperlipidemia</content>, <content ID="encounterDiagnosisID3-3">Gerd</content></td>Outpatient Attender: Kenna Sánchez NP [facility] 10/09/2020 08:39:00 AM EDT - 10/09/2020 09:30:00 AM EDT HyperlipidemiaDiabetes Mellitus Type 2 W ithout ComplicationHyperlipidemiaDiabetes Mellitus Type 2 Without ComplicationEssential Hypertension BenignEssential Hypertension BenignGerdGerd [facility] ([facility]) Hyperlipidemia Diabetes Mellitus Type 2 Without Complic ation Hyperlipidemia Diabetes Mellitus Type 2 Without Complic ation Essential Hypertension Benign Essential Hypertension Benign Gerd Gerd <td ID="encounterTypeDescriptionID2">RX UPDATE</td><td>Kenna Sánchez NP</td><td>[facility]</td><td>11/18/2020</td><td>10/09/2020 8:17AM</td><td>10/09/2020 11:59PM</td><td></td>Outpatient Attender: Kenna Sánchez NP [facility], 10/09/2020 08:17:00 AM EDT - 10/09/2020 11:59:00 PM EDT [place] ([facility]) Outpatient Attender: Armen Mccann NP SJYves.[email or web address].[email or web address] 021 12:00:00 AM EDT - 08/18/2020 01:37:20 PM EDT [facility] Outpatient<td ID="encounterTypeDescripti onID4">STANDARD OV</td><td>Kenna Sánchez NP</td><td>[facility],</td><td>07/14/2020</td><td>9:05AM</td><td>9:53AM</td><td><content ID="encounterDiagnosisID4-0">Diabetes Mellitus Type 2</content>, <content ID="encounterDiagnosisID4-1">Essential Hypertension Benign</content>, <content ID="encounterDiagnosisID4-2">Hyperlipidemia</content>, <content ID="encounterDiagnosisID4-3">Gerd</content></td> Attender: Kenna Sánchez NP [facility], 07/14/2020 09:05:00 AM EDT - 07/14/2020 09:53:00 AM EDT HyperlipidemiaDiabetes Mellitus Type 2Hy perlipidemiaDiabetes Mellitus Type 2HyperlipidemiaDiabetes Mellitus Type 2Essential Hypertension BenignEssential Hypertension BenignEssential Hypertension BenignGerdGerdGerd [place] ([facility] Hyperlipidemia Diabetes Mellitus Type 2 Hyperlipidemia Diabetes Mellitus Type 2 Hyperlipidemia Diabetes Mellitus Type 2 Essential Hypertension Benign Essential Hypertension Benign Essential Hypertension Benign Gerd Gerd Gerd Outpatient<td ID="encounterTypeDescripti onID5">E-VISIT E/M</td><td>Millertongarima Sánchez NP</td><td>[facility],</td><td>04/16/2020</td><td>8:49AM</td><td>11:43AM</td><td><content ID="encounterDiagnosisID5-0">Hyperhidrosis Focal</content>, <content ID="encounterDiagnosisID5-1">Diabetes Mellitus Type 2</content>, <content ID="encounterDiagnosisID5-2">Essential Hypertension Benign</content>, <content ID="encounterDiagnosisID5-3">Hyperlipidemia</content>, <content ID="encounterDiagnosisID5-4">Vitamin D Deficiency</content></td> Attender: Kenna Sánchez NP [facility], 04/16/2020 08:49:00 AM EST - 04/16/2020 11:43:00 AM EST Vitamin D DeficiencyHyperlipidemiaDiabet es Mellitus Type 2Hyperhidrosis FocalVitamin D DeficiencyHyperlipidemiaDiabetes Mellitus Type 2Hyperhidrosis FocalVitamin D DeficiencyHyperlipidemiaDiabetes Mellitus Type 2Hyperhidrosis FocalVitamin D DeficiencyHyperlipidemiaDiabetes Mellitus Type 2Hyperhidrosis FocalEssential Hypertension BenignEssential Hypertension BenignEssential Hypertension BenignEssential Hypertension Benign [facility] ([facility]) Vitamin D Deficiency Hyperlipidemia Diabetes Mellitus Type 2 Hyperhidrosis Focal Vitamin D Deficiency Hyperlipidemia Diabetes Mellitus Type 2 Hyperhidrosis Focal Vitamin D Deficiency Hyperlipidemia Diabetes Mellitus Type 2 Hyperhidrosis Focal Vitamin D Deficiency Hyperlipidemia Diabetes Mellitus Type 2 Hyperhidrosis Focal Essential Hypertension Benign Essential Hypertension Benign Essential Hypertension Benign Essential Hypertension Benign Outpatient Attender: Armen MUELLER-ERVIN 020 12:00:00 AM EST - 02/12/2020 01:54:28 PM EST [facility] <td ID="encounterTypeDescriptionID6">STA NDARD OV</td><td>Kenna Peck [place] ENTERPRISE SERVICES MANAGER</td><td>[facility],</td><td>01/01/2020</td><td>12:27PM</td><td>1:59PM</td><td><content ID="encounterDiagnosisID6-0">Hyperhidrosis</content>, <content ID="encounterDiagnosisID6-1">Secondary Hypertension Benign</content>, <content ID="encounterDiagnosisID6-2">Diabetes Mellitus Type 2 with Complication</content></td>Outpatient Attender: Kenna Gonzalo SALGADO [facility], 01/01/2020 12:27:00 PM EST - 01/01/2020 01:59:00 PM ES T Diabetes Mellitus Type 2 with ComplicationSecondary Hypertension BenignHyperhidrosisDiabetes Mellitus Type 2 with ComplicationSecondary Hypertension BenignHyperhidrosisDiabetes Mellitus Type 2 with C omplicationSecondary Hypertension BenignHyperhidrosisDiabetes Mellitus Type 2 with ComplicationSecondary Hypertension BenignHyperhidrosisDiabetes Mellitus Type 2 with ComplicationSecondary Hypertension BenignHyperhidrosis [place] ([facility]) Diabetes Mellitus Type 2 with Complicati [...] Date Status Description Data Source(s) COVID-19 VACCINE [facility] 05/21/2020 12:00:00 AM EDT completed [facility] Vaccine Series Complete: YESThis Data wa s Submitted to [facility] Via [employer] COVID-19 VACCINE [facility] 04/30/2020 12:00:00 AM EST completed [facility] Vaccine Series Complete: NOThis Data was Submitted to [facility] Via [employer]. Medications Medication Brand Name Start Date Product Form Dose Route Admi nistrative Instructions Pharmacy Instructions Status Indications Reaction Description Data Source(s) Fenofibrate 48 MG Oral Tablet FENOFIBRATE NANOCRYSTALLIZED 1 03/29/2020 12:00:00 AM EST tablet 30 TAKE ONE TABLET BY MOUTH AT BEDTIME TAKE ONE TABLET BY MOUTH AT BEDTIME SOLD: 01/27/2021 [facility] 50 mg 01/08/2021 12:00:00 AM EST tablet 180 TAKE ONE TABLET BY MOUTH TWICE A DAY TAKE ONE TABLET BY MOUTH TWICE A DAY SOLD: 01/08/2021 [facility] 100 mg 01/08/2021 12:00:00 AM EST tablet 90 TAKE ONE TABLET BY MOUTH EVERY DAY TAKE ONE TABLET BY MOUTH EVERY DAY SOLD: 01/08/2021 [facility] 20 mEq 01/08/2021 12:00:00 AM EST tablet,ER particles/cry stals 30 TAKE ONE TABLET BY MOUTH AT BEDTIME TAKE ONE TABLET BY MOUTH AT BEDTIME SOLD: 01/08/2021 [facility] 1,250 mcg (50,000 unit) 01/01/2021 12:00:00 AM EST capsule 2 TAKE ONE CAPSULE BY MOUTH EVERY 2 WEEKS TAKE ONE CAPSULE BY MOUTH EVERY 2 WEEKS SOLD: 01/01/2021 [facility] 25 mg 01/01/2021 12:00:00 AM EST tablet 30 TAKE ONE TABLET BY MOUTH EVERY DAY TAKE ONE TABLET BY MOUTH EVERY DAY SOLD: 01/01/2021 [facility] pantoprazole 40 MG Delayed Release [...] 40 MG Delayed Release Oral Tablet [facility] ([facility]) 500 mg 12/11/2020 12:00:00 AM EDT [...] 40 MG Delayed Release Oral Tablet [facility] ([facility]) 1 gram 12/06/2020 12:00:00 AM EDT [...] BEFORE MEALS SOLD: 12/07/2020 [facility] 10 mg 12/06/2020 12:00:00 AM EDT tablet 90 TAKE 1 TABLET [10MG] BY MOUTH THREE TIMES A DAY BEFORE MEALS TAKE 1 TABLET [10MG] BY MOUTH THREE TIME S A DAY BEFORE MEALS SOLD: 01/04/2021 [facility] 1 gram 12/06/2020 12:00:00 AM EDT tablet 60 TAKE ONE TABLET BY MOUTH TWICE A DAY TAKE ONE TABLET BY MOUTH TWICE A DAY SOLD: 01/10/2021 [facility] 5 mg 11/25/2020 12:00:00 AM EDT tablet 90 TAKE ONE TABLET BY MOUTH EVERY DAY TAKE ONE TABLET BY MOUTH EVERY DAY SOLD: 11/25/2020 [facility] Amlodipine 5 MG Oral Tablet amLODIPine Besylate 5 MG O ral Tablet amLODIPine Besylate 5 MG Oral Tablet 11/24/2020 12:00:00 AM EDT active amlodipine 5 MG Oral Tablet [place] ([facility]) Sucralfate 1000 MG Oral Tablet Sucralfate 1 GM Oral Ta blet Sucralfate 1 GM Oral Tablet 11/24/2020 12:00:00 AM EDT active sucralfate 1000 MG Oral Tablet [place] [facility] 0.[facility] % 11/19/2020 12:00:00 AM EDT drops 2 INSTILL 1 DROP IN EACH EYE EVERY EVENING INSTILL 1 DROP IN EACH EYE EVERY EVENING SOLD: 01/27/2021 [facility] 0.004 % 11/19/2020 12:00:00 AM EDT drops 5 INSTILL 1 DROP IN EACH EYE EVERY EVENING INSTILL 1 DROP IN EACH EYE EVERY EVENING SOLD: 11/20/2020 [facility] 0.004 % 11/19/2020 12:00:00 AM EDT drops 2 INSTILL 1 DROP IN EACH EYE EVERY EVENING INSTILL 1 DROP IN EACH EYE EVERY EVENING SOLD: 01/06/2021 [facility] Metoclopramide 10 MG Oral Tablet [Reglan] Reglan 10 MG Oral Tablet Reglan 10 MG Oral Tablet 11/18/2020 12:00:00 AM EDT active metoclopramide 10 MG Oral Tablet [Reglan] [facility]) pantoprazole 40 MG Delayed Release Oral Tablet Pantoprazole Sodium 40 MG Oral Tablet Delayed Release Pantoprazole Sodium 40 MG Oral Tablet Delayed Release 11/18/2020 12:00:00 AM EDT aborted pantoprazole 40 MG Delayed Release Oral Tablet [facility] ([facility]) 1 gram 11/13/2020 12:00:00 AM EDT [...] ONE TABLET BY MOUTH AT BEDTIME SOLD: 12/29/2020 [facility] Fenofibrate 48 MG Oral [...] 12:00:00 AM EDT active Accu-Chek Yi Plus [place] ([facility]) Klor-Con M20 20 MEQ Oral Tablet Extended Release Klor- Con M20 20 MEQ Oral Tablet Extended Release 10/09/2020 12:00:00 AM EDT active Microencapsulated potassium chloride 20 MEQ Extended Release Oral Tablet [Klor-Con] [facility]BAL[facility]) 1,250 mcg (50,000 unit) 10/09/2020 12:00:00 AM EDT capsule 2 TAKE ONE CAPSULE BY MOUTH EVERY 2 WEEKS TAKE ONE CAPSULE BY MOUTH EVERY 2 WEEKS SOLD: 12/04/2020 [facility] Losartan Potassium 100 MG Oral Tablet Losartan Potassium 100 MG Oral Tablet 10/09/2020 12:00:00 AM EDT 1 active losartan potassium 100 MG Oral Tablet [facility]) 81 mg 10/09/2020 12:00:00 AM EDT tablet,delayed [...] metformin hydrochloride 500 MG Oral Tablet [facility] ([facility]) 40 mg 10/09/2020 12:00:00 AM EDT capsule,delayed [...] MG Delayed Release Oral Capsule [Nexium] [facility]) LANCETS 10/09/2020 12:00:00 AM EDT misc 100 [...] EDT active simvastatin 80 MG Oral Tablet [facility] ([facility]) 50 mg 10/09/2020 12:00:00 AM EDT tablet 180 TAKE ONE TABLET BY MOUTH TWO TIMES A DAY TAKE ONE TABLET BY MOUTH TWO TIMES A DAY SOLD: 10/09/2020 [facility] Accu-Chek Soft Touch Lancets Miscellaneous Accu-Chek S oft Touch Lancets Miscellaneous 10/09/2020 12:00:00 AM EDT comp leted Accu-Chek Soft Touch Lancets [place] ([facility]) 1,250 mcg (50,000 unit) 10/09/2020 12:00:00 AM EDT capsule 2 TAKE ONE CAPSULE BY MOUTH EVERY 2 WEEKS TAKE ONE CAPSULE BY MOUTH EVERY 2 WEEKS SOLD: 10/09/2020 [facility] Ergocalciferol 88034 UNT Oral Capsule [D risdol] Drisdol 1.25 MG (19820 UT) Oral Capsule Drisdol 1.25 MG (04723 UT) Oral Capsule 10/09/2020 12:00:00 AM EDT active ergocalciferol 1.25 MG Oral Capsule [Drisdol] [place] ([facility]) Fenofibrate 48 MG Oral Tablet Fenofibrate 48 MG Oral Tablet 10/09/2020 12:00:00 AM EDT active fenofibrate 48 MG Oral Tablet [place] ([facility]) 25 mg 10/09/2020 12:00:00 AM EDT tablet 30 TAKE ONE TABLET BY MOUTH ONCE DAILY TAKE ONE TABLET BY MOUTH ONCE DAILY SOLD: 11/06/2020 [facility] Hydrochlorothiazide 25 MG Oral Tablet hydroCHLOROthiaz ruth ann 25 MG Oral Tablet hydroCHLOROthiazide 25 MG Oral Tablet 10/09/2020 12:00:00 AM EDT active hydrochlorothiazide 25 MG Oral T ablet [facility]) 25 mg 10/09/2020 12:00:00 AM EDT [...] EDT active SM Aspirin Adult Low Strength [place] ([facility]) Atenolol 50 MG Oral Tablet [Tenormin] Tenormin 50 MG O ral Tablet Tenormin 50 MG Oral Tablet 10/09/2020 12:00:00 AM EDT active atenolol 50 MG Oral Tablet [Tenormin] [place] ([facility]) 80 mg 10/09/2020 12:00:00 AM EDT [...] aborted fenofibrate 48 [facility] Fenofibrate 48 MG Oral Tablet FENOFIBRATE NANOCRYSTALLIZED [...] d atenolol 50 MG Oral Tablet [Tenormin] [facility]) 80 mg 07/14/2020 12:00:00 AM EDT [...] aborted simvastatin 80 M G Oral Tablet [facility]) Esomeprazole 40 MG Delayed Release Oral Capsule [Nexium] NexIUM 40 MG Oral Capsule Delayed Release NexIUM 40 MG Oral Capsule Delayed Release 07/14/2020 12:00:00 AM EDT aborted esomeprazole 40 MG Delayed Release Oral Capsule [Nexium] [facility]) Ergocalciferol 05429 UNT Oral Capsule [D risdol] Drisdol 1.25 MG (01610 UT) Oral Capsule Drisdol 1.25 MG (73227 UT) Oral Capsule 07/14/2020 12:00:00 AM EDT aborted ergocalciferol 1.25 MG Oral Capsule [Drisdol] [facility]) Metformin hydrochloride 500 MG Oral Tablet metFORMIN H Cl 500 MG Oral Tablet metFORMIN HCl 500 MG Oral Tablet 07/14/2020 12:00:00 AM EDT aborted metformin hydrochloride 500 MG Oral Tablet [place] ([facility]) Losartan Potassium 100 MG Oral Tablet Losartan Potassium 100 MG Oral Tablet 07/14/2020 12:00:00 AM EDT 1 aborted losartan potassium 100 MG Oral Tablet [facility]) 20 mEq 07/14/2020 12:00:00 AM EDT tablet,ER particles/cry stals 30 TAKE ONE TABLET BY MOUTH AT BEDTIME TAKE ONE TABLET BY MOUTH AT BEDTIME SOLD: 07/15/2020 [facility] Klor-Con M20 20 MEQ Oral Tablet Extended Release Klor- Con M20 20 MEQ Oral Tablet Extended Release 07/14/2020 12:00:00 AM EDT aborted Microencapsulated potassium chloride 20 MEQ Extended Release Oral Tablet [Klor-Con] [place] ([facility]) 25 mg 07/14/2020 12:00:00 AM EDT [...] aborted hydrochlorothiazide 25 MG Oral T ablet [place] ([facility]) Fenofibrate 48 MG Oral Tablet Fenofibrate 48 MG Oral Tablet 07/14/2020 12:00:00 AM EDT aborted fenofibrate 48 M G Oral Tablet [place] ([facility]) Accu-Chek Soft Touch Lancets Miscellaneous Accu-Chek S oft Touch Lancets Miscellaneous 07/14/2020 12:00:00 AM EDT abor rufino Accu-Chek Soft Touch Lancets [place] ([facility]) Accu-Chek Yi Plus In Vitro Strip Accu-Chek Yi Plus In Vitro Strip 07/14/2020 12:00:00 AM EDT completed Accu-Chek Yi Plus [place] ([facility]) Ergocalciferol 11166 UNT Oral Capsule [D risdol] Drisdol 1.25 MG (35702 UT) Oral Capsule Drisdol 1.25 MG (15985 UT) Oral Capsule 07/14/2020 12:00:00 AM EDT aborted ergocalciferol 1.25 MG Oral Capsule [Drisdol] [place] ([facility]) 81 mg 07/11/2020 12:00:00 AM EDT tablet,delayed release (DR/EC) 90 TAKE ONE TABLET BY MOUTH EVERY DAY TAKE ONE TABLET BY MOUTH EVERY DAY SOLD: 07/12/2020 [facility] SM Aspirin Adult Low Strength 81 MG Oral Tablet Delaye d Release SM Aspirin Adult Low Strength 81 MG Oral Tablet Delayed Release 07/10/2020 12:00:00 AM EDT aborted SM Aspirin Adult Low Strength [facility] ([facility]) 20 mEq 06/12/2020 12:00:00 AM EDT [...] aborted Aspirin Adult Low Strength [facility] ([facility]) Ergocalciferol 71283 UNT Oral Capsule [D risdol] Drisdol 1.25 MG (38261 UT) Oral Capsule Drisdol 1.25 MG (21138 UT) Oral Capsule 2020 12:00:00 AM EST aborted ergocalciferol 1.25 MG Oral Capsule [Drisdol] [place] ([facility]) Fenofibrate 48 MG Oral Tablet Fenofibrate 48 MG Oral Tablet 04/22/2020 12:00:00 AM EST aborted fenofibrate 48 M G Oral Tablet [place] ([facility]) Fenofibrate 48 MG Oral Tablet FENOFIBRATE NANOCRYSTALLIZED 0 04/17/2020 12:00:00 AM EST tablet 30 TAKE ONE TABLET BY MOUTH AT BEDTIME TAKE ONE TABLET BY MOUTH AT BEDTIME SOLD: 06/26/2020 [facility] 80 mg 04/17/2020 12:00:00 AM EST tablet 30 TAKE ONE TABLET BY MOUTH AT BEDTIME TAKE ONE TABLET BY MOUTH AT BEDTIME SOLD: 06/10/2020 [facility] Fenofibrate 48 MG Oral Tablet FENOFIBRATE NANOCRYSTALLIZED 0 04/17/2020 12:00:00 AM EST tablet 30 TAKE ONE TABLET BY MOUTH AT BEDTIME TAKE ONE TABLET BY MOUTH AT BEDTIME SOLD: 05/29/2020 [facility] 80 mg 04/17/2020 12:00:00 AM EST tablet 30 TAKE ONE TABLET BY MOUTH AT BEDTIME TAKE ONE TABLET BY MOUTH AT BEDTIME SOLD: 04/22/2020 [facility] Fenofibrate 48 MG Oral Tablet FENOFIBRATE NANOCRYSTALLIZED 0 04/17/2020 12:00:00 AM EST tablet 30 TAKE ONE TABLET BY MOUTH AT BEDTIME TAKE ONE TABLET BY MOUTH AT BEDTIME SOLD: 04/22/2020 [facility] 100 mg 04/17/2020 12:00:00 AM EST tablet 90 TAKE ONE TABLET BY MOUTH EVERY DAY TAKE ONE TABLET BY MOUTH EVERY DAY SOLD: 04/22/2020 [facility] Simvastatin 80 MG Oral Tablet Simvastatin 80 MG Oral Tablet 04/16/2020 12:00:00 AM EST aborted simvastatin 80 M G Oral Tablet [place] ([facility]) Fenofibrate 48 MG Oral Tablet [Tricor] Tricor 48 MG Or al Tablet Tricor 48 MG Oral Tablet 04/16/2020 12:00:00 AM EST aborte d fenofibrate 48 MG Oral Tablet [Tricor] [place] ([facility]) Atenolol 50 MG Oral Tablet [Tenormin] Tenormin 50 MG O ral Tablet Tenormin 50 MG Oral Tablet 04/16/2020 12:00:00 AM EST aborte d atenolol 50 MG Oral Tablet [Tenormin] [place] ([facility]) Ergocalciferol 25429 UNT Oral Capsule [D risdol] Drisdol 1.25 MG (56630 UT) Oral Capsule Drisdol 1.25 MG (04451 UT) Oral Capsule 04/16/2020 12:00:00 AM EST aborted ergocalciferol 1.25 MG Oral Capsule [Drisdol] [place] ([facility]) Aspirin Adult Low Strength 81 MG Oral Tablet Delayed R elease Aspirin Adult Low Strength 81 MG Oral Tablet Delayed Release 04/16/2020 12:00:00 AM EST aborted Aspirin Adult Low Strength [facility] ([facility]) Hydrochlorothiazide 25 MG Oral Tablet hydroCHLOROthiaz ruth ann 25 MG Oral Tablet hydroCHLOROthiazide 25 MG Oral Tablet 04/16/2020 12:00:00 AM EST aborted hydrochlorothiazide 25 MG Oral T ablet [place] ([facility]) Klor-Con M20 20 MEQ Oral Tablet Extended Release Klor- Con M20 20 MEQ Oral Tablet Extended Release 04/16/2020 12:00:00 AM EST aborted Microencapsulated potassium chloride 20 MEQ Extended Release Oral Tablet [Klor-Con] [place] ([facility]) Losartan Potassium 100 MG Oral Tablet Losartan Potassium 100 MG Oral Tablet 04/16/2020 12:00:00 AM EST 1 aborted losartan potassium 100 MG Oral Tablet [place] ([facility]) Esomeprazole 40 MG Delayed Release Oral Capsule [Nexium] NexIUM 40 MG Oral Capsule Delayed Release NexIUM 40 MG Oral Capsule Delayed Release 04/16/2020 12:00:00 AM EST aborted esomeprazole 40 MG Delayed Release Oral Capsule [Nexium] [place] ([facility]) Metformin hydrochloride 500 MG Oral Tablet metFORMIN H Cl 500 MG Oral Tablet metFORMIN HCl 500 MG Oral Tablet 04/16/2020 12:00:00 AM EST aborted metformin hydrochloride 500 MG Oral Tablet [place] ([facility]) LANCETS 03/22/2020 12:00:00 AM EST misc 100 USE 1 LANCET TO TEST TWICE A DAY USE 1 LANCET TO TEST TWICE A DAY SOLD: 03/26/2020 [facility] BLOOD SUGAR DIAGNOSTIC 01/19/2020 12:00:00 AM EST strip 100 TEST TWO TIMES A DAY TEST TWO TIMES A DAY SOLD: 01/20/2020 [facility] BLOOD SUGAR DIAGNOSTIC 01/19/2020 12:00:00 AM EST strip 100 TEST TWO TIMES A DAY TEST TWO TIMES A DAY SOLD: 09/06/2020 [facility] Metformin hydrochloride 500 MG Oral Tablet METFORMIN [...] CAPSULE BY MOUTH EVERY MORNING SOLD: 02/07/2020 [facility] Atenolol 50 MG Oral Tablet ATENOLOL 01/04/2020 12:00:00 AM EST tablet 60 TAKE ONE TABLET BY MOUTH TWO TIMES A DAY TAKE ONE TABLET BY MOUTH TWO TIMES A DAY SOLD: 03/26/2020 [facility] Esomeprazole 40 MG Delayed Release Oral Capsule ESOMEPRAZOLE MAGNESIUM 01/04/2020 12:00:00 AM EST capsule,delayed release(DR/EC) 30 TAKE ONE CAPSULE BY MOUTH EVERY MORNING TAKE ONE CAPSULE BY MOUTH EVERY MORNING SOLD: 01/07/2020 [facility] Atenolol 50 MG Oral Tablet ATENOLOL 01/04/2020 [...] active Take 100 mg by mouth daily [facility] Fenofibrate 48 MG Oral Tablet fenofibrate (TRICOR) 48 MG tablet fenofibrate (TRICOR) 48 MG tablet 01/02/2020 12:00:00 AM EST 48 mg Oral active Take 48 mg by mouth daily [facility] Fenofibrate 48 MG Oral Tablet FENOFIBRATE NANOCRYSTALLIZED 1 03/03/2019 12:00:00 AM EST tablet 30 TAKE ONE TABLET BY MOUTH AT BEDTIME TAKE ONE TABLET BY MOUTH AT BEDTIME SOLD: 01/03/2020 [facility] 20 mEq 01/02/2020 12:00:00 AM EST tablet,ER particles/cry stals 30 TAKE ONE TABLET BY MOUTH AT BEDTIME TAKE ONE TABLET BY MOUTH AT BEDTIME SOLD: 02/19/2020 [facility] Fenofibrate 48 MG Oral Tablet FENOFIBRATE NANOCRYSTALLIZED [...] TABLET BY MOUTH ONCE DAILY SOLD: 01/03/2020 [facility] 20 mEq 01/02/2020 12:00:00 AM EST [...] 12:00:00 AM EST aborted Accu-Chek Yi Plus [place] ([facility]) Aspirin 81 MG Delayed Release Oral Table t [Ecotrin] Ecotrin Low Strength 81 MG Oral Tablet Delayed Release Ecotrin Low Strength 81 MG Oral Tablet D elayed Release 01/01/2020 12:00:00 AM EST aborted aspirin 81 MG Delayed Release Oral Tablet [Ecotrin] [place] ([facility]) Ergocalciferol 77701 UNT Oral Capsule [D risdol] Drisdol 1.25 MG (99474 UT) Oral Capsule Drisdol 1.25 MG (22074 UT) Oral Capsule 01/01/2020 12:00:00 AM EST aborted ergocalciferol 1.25 MG Oral Capsule [Drisdol] [facility]) Klor-Con M20 20 MEQ Oral Tablet Extended Release Klor- Con M20 20 MEQ Oral Tablet Extended Release 01/01/2020 12:00:00 AM EST aborted Microencapsulated potassium chloride 20 MEQ Extended Release Oral Tablet [Klor-Con] [facility]) Hydrochlorothiazide 25 MG Oral Tablet hydroCHLOROthiaz ruth ann 25 MG Oral Tablet hydroCHLOROthiazide 25 MG Oral Tablet 01/01/2020 12:00:00 AM EST aborted hydrochlorothiazide 25 MG Oral T ablet [facility]) Losartan Potassium 100 MG Oral Tablet Losartan Potassium 100 MG Oral Tablet 01/01/2020 12:00:00 AM EST 1 aborted losartan potassium 100 MG Oral Tablet [facility]) Simvastatin 80 MG Oral Tablet Simvastatin 80 MG Oral Tablet 01/01/2020 12:00:00 AM EST aborted simvastatin 80 M G Oral Tablet [facility]) Metformin hydrochloride 500 MG Oral Tablet metFORMIN H Cl 500 MG Oral Tablet metFORMIN HCl 500 MG Oral Tablet 01/01/2020 12:00:00 AM EST aborted metformin hydrochloride 500 MG Oral Tablet [facility]) Esomeprazole 40 MG Delayed Release Oral Capsule [Nexium] NexIUM 40 MG Oral Capsule Delayed Release NexIUM 40 MG Oral Capsule Delayed Release 01/01/2020 12:00:00 AM EST aborted esomeprazole 40 MG Delayed Release Oral Capsule [Nexium] [facility]) Atenolol 50 MG Oral Tablet [Tenormin] Tenormin 50 MG O ral Tablet Tenormin 50 MG Oral Tablet 01/01/2020 12:00:00 AM EST aborte d atenolol 50 MG Oral Tablet [Tenormin] [facility]) Fenofibrate 48 MG Oral Tablet [Tricor] Tricor 48 MG Or al Tablet Tricor 48 MG Oral Tablet 01/01/2020 12:00:00 AM EST aborte d fenofibrate 48 MG Oral Tablet [Tricor] [facility]) Metformin hydrochloride 500 MG Oral Tablet METFORMIN HCL 12/14/2019 12:00:00 AM EDT tablet 60 TAKE ONE TABLET BY MOUTH TWI CE A DAY TAKE ONE TABLET BY MOUTH TWICE A DAY SOLD: 04/01/2020 [facility] 80 mg 12/14/2019 12:00:00 AM [...] aborted metformin hydrochloride 500 MG Oral Tablet UBALDO ([facility]) Losartan Potassium 100 MG Oral Tablet Losartan Potassium 100 MG Oral Tablet 10/18/2019 12:00:00 AM EDT 1 aborted losartan potassium 100 MG Oral Tablet [facility]) 50 mg 10/10/2019 12:00:00 AM EDT [...] 20 MEQ Extended Release Oral Tablet [Klor-Con] [place] ([facility]) Hydrochlorothiazide 25 MG Oral Tablet hydroCHLOROthiaz ruth ann 25 MG Oral Tablet hydroCHLOROthiazide 25 MG Oral Tablet 10/02/2019 12:00:00 AM EDT aborted hydrochlorothiazide 25 MG Oral T ablet [place] ([facility]) Accu-Chek Soft Touch Lancets Miscellaneous Accu-Chek S oft Touch Lancets Miscellaneous 10/02/2019 12:00:00 AM EDT abor rufino Accu-Chek Soft Touch Lancets [place] ([facility]) Ergocalciferol 81246 UNT Oral Capsule [D risdol] Drisdol 1.25 MG (90190 UT) Oral Capsule Drisdol 1.25 MG (79209 UT) Oral Capsule 10/02/2019 12:00:00 AM EDT aborted ergocalciferol 1.25 MG Oral Capsule [Drisdol] [facility]) Atenolol 50 MG Oral Tablet [Tenormin] Tenormin 50 MG O ral Tablet Tenormin 50 MG Oral Tablet 10/02/2019 12:00:00 AM EDT aborte d atenolol 50 MG Oral Tablet [Tenormin] [facility]) Simvastatin 80 MG Oral Tablet Simvastatin 80 MG Oral Tablet 10/02/2019 12:00:00 AM EDT aborted simvastatin 80 M G Oral Tablet [facility]) Esomeprazole 40 MG Delayed Release Oral Capsule [Nexium] NexIUM 40 MG Oral Capsule Delayed Release NexIUM 40 MG Oral Capsule Delayed Release 10/02/2019 12:00:00 AM EDT aborted esomeprazole 40 MG Delayed Release Oral Capsule [Nexium] [place] ([facility]) Fenofibrate 48 MG Oral Tablet [Tricor] Tricor 48 MG Or al Tablet Tricor 48 MG Oral Tablet 10/02/2019 12:00:00 AM EDT aborte d fenofibrate 48 MG Oral Tablet [Tricor] [facility] ([facility]) BLOOD SUGAR DIAGNOSTIC 09/05/2019 12:00:00 AM EDT strip 100 TEST TWO TIMES A DAY TEST TWO TIMES A DAY SOLD: 12/11/2019 [facility] Accu-Chek Yi Plus In Vitro Strip Accu-Chek Yi Plus In Vitro Strip 09/04/2019 12:00:00 AM EDT aborted Accu-Chek Yi Plus [place] ([facility]) Aspirin 81 MG Delayed Release Oral Table t [Ecotrin] Ecotrin Low Strength 81 MG Oral Tablet Delayed Release Ecotrin Low Strength 81 MG Oral Tablet D elayed Release 08/15/2019 12:00:00 AM EDT aborted aspirin 81 MG Delayed Release Oral Tablet [Ecotrin] [facility] ([facility]) Fenofibrate 67 MG Oral Capsule fenofibrate micronized (LOFIBRA) 67 MG capsule fenofibrate micronized (LOFIBRA) 67 MG capsule 48 mg Oral aborted Take 48 mg by mouth every morning before breakfast [facility] Losartan Potassium 25 MG Oral Tablet losartan (COZAAR) 25 MG tablet losartan (COZAAR) 25 MG tablet 50 mg Oral aborted Ta ke 50 mg by mouth daily [facility] Insurance Providers Payer name Policy type / Coverage type Policy ID Covered republican ID Covered republican's relationship to hung Policy Hung Plan Information Medicare [place] of [place] Medicare Primary 0 [id number] Self 0 Medicare [place] Medicare Primary 0 [id number] Self 0 HUMANA PPO [id number] SP [id number] Medicare [place] of [place] Medicare Primary 0 [id number] Self 0 Medicare [place] Medicare Primary 0 [id number] Self 0 MEDICARE [id number] SP [id number] Medicare [place] Medicare Primary 0 [id number] Self 0 Medicare [place] Medicare Primary 0 [id number] Self 0 Medicare [place] Medicare Primary 0 [id number] Self 0 Medicare [place] Medicare Primary 0 [id number] Self 0 Medicare Part B of [facility] Medicare Primary 0 [id number] Self 0 MEDICARE [id number] Madeleine [id number] Medicare Part B of [facility] Medicare Primary 0 [id number] Self 0 HUMANA PPO [id number] SP [id number] MEDICAID [id number] SP [id number] MEDICAID [id number] SP [id number] MEDICAID [id number] SP [id number] MEDICAID [id number] [id number] MEDICAID [id number] Madeleine [id number] MEDICAID [id number] SP [id number] [place] [id number] SP [id number] [place] [id number] SP [id number] HUMANA MEDICARE [id number] Madeleine [id number] HUMANA MEDICARE [id number] [phone] Humana Care Plan Other 0 [id number] Self 0 Medicaid [facility] Supplemental Policy 0 [id number] Self 0 Humana Care Plan Other 0 [id number] Self 0 Medicaid of [place] Supplemental Policy 0 [id number] Self 0 Humana Care Plan Other 0 [id number] Self 0 [place] Supplemental Policy 0 [id number] Self 0 Humana Care Plan Other 0 [id number] Self 0 MEDICARE PART A-O/P [id number] 18 [id number] Medicaid [facility] Supplemental Policy 0 [id number] Self 0 Humana Care Plan Other 0 [id number] Self 0 Medicare Part B of [facility] Medicare Primary 0 [id number] Self 0 [place] Supplemental Policy 0 [id number] Self 0 Humana Care Plan Other 0 [id number] Self 0 Medicare Part B of [facility] Medicare Primary 0 [id number] Self 0 [place] Supplemental Policy 0 [id number] Self 0 [place] [id number] MEDICARE PART A [facility] [id number] 18 [id number] [place] Medicare Primary [id number] Self [id number] Medicare [place] Medicare Primary [id number] Self [id number] Medicaid of [place] Supplemental Policy 0 [id number] Self 0 [place] Policy 0 [id number] Self 0 [place] Supplemental Policy 0 [id number] Self 0 [employer] C [id number] S [id number] MEDICAID M [id number] S [id number] MEDICARE C [id number] S [id number] A [employer] C [id number] S [id number] Medicaid of [place] Supplemental Policy 0 [id number] Self 0 [place] MEDICARE PART B C [id number] S [id number] [place] Supplemental Policy 0 [id number] Self 0 [place] Supplemental Policy 0 [id number] Self 0 [place] Supplemental Policy 0 [id number] Self 0 [place] Supplemental Policy 0 [id number] Self 0 [place] Supplemental Policy 0 [id number] Self 0 MEDICARE -O/P [id number] 18 [id number] MEDICAID-O/P RAD [id number] HUMANA GOLD [id number] SP [id number] HUMANA GOLD PLUS -O/P [id number] 18 [id number] MEDICAID - O/P EMERGENCY ROOM [id number] Medicaid of [place] Supplemental Policy 0 [id number] Self 0 Medicare [place] of [place] Primary 0 [id number] Self 0 HUMANA GOLD [id number] SP [id number] [place] Supplemental Policy 0 [id number] Self 0 Humana Care Plan Other 0 [id number] Self 0 [place] Supplemental Policy 0 [id number] Self 0 Humana Care Plan Other 0 [id number] Self 0 [place] Supplemental Policy 0 [id number] Self 0 Humana Care Plan Other 0 [id number] Self 0 [place] Supplemental Policy 0 [id number] Self 0 Humana Care Plan Other 0 [id number] Self 0 [place] Supplemental Policy 0 [id number] Self 0 Humana Care Plan Other 0 [id number] Self 0 MEDICAID-O/P [id number] MEDICARE PART A-O/P [id number] 18 [id number] [facility] MEDICA[place] [id number] 18 [id number] HUMANA MEDICARE HMO [id number] 18 [id number] [place] Supplemental Policy 0 [id number] Self 0 Humana Care Plan Other 0 [id number] Self 0 [place] Supplemental Policy 0 [id number] Self 0 Humana Care Plan Other 0 [id number] Self 0 [place] Supplemental Policy 0 [id number] Self 0 Problems, Conditions, and Diagnoses Code Display Name Description Problem Type Effective Dates Data Source(s) Z6841 Body mass index [BMI]40.0-44.9, adult Magnus dy mass index [BMI]40.0-44.9, adult Diagnosis 01/07/2021 10:21:00 AM [facility] [id number] Personal history of nicotine dependence Personal history of nicotine dependence Diagnosis 01/07/2021 10:21:00 AM [facility] Z7984 long term acute care registered nurse (current) use of oral hypoglyc emic drugs long term acute care registered nurse (current) use of oral hypoglycemic drugs Diagnosis 01/07/2021 10:21:00 AM [facility] Z955 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 of coronary angioplasty implant and graft Diagnosis 01/07/2021 10:21:00 AM [facility] Z8546 Personal history of malignant neoplasm o f prostate Personal history of malignant neoplasm of prostate Diagnosis 01/07/2021 10:21:00 AM EST [facility] R110 Nausea Nausea Diagnosis 01/07/2021 10:21:00 AM ES T [facility] E6601 Morbid (severe) obesity due to excess ca lories Morbid (severe) obesity due to excess calories Diagnosis 01/07/2021 10:21:00 AM [facility] E7800 Pure hypercholesterolemia, unspecified P ure hypercholesterolemia, unspecified Diagnosis 01/07/2021 10:21:00 AM [facility] I10 Essential (primary) hypertension Essential (primary) h ypertension Diagnosis 01/07/2021 10:21:00 AM [facility] I2510 Atherosclerotic heart diseas e of [place] coronary artery without angina pectoris Atherosclerotic heart disease of [place] coronary artery without angina pectoris Diagnosis 01/07/2021 10:21:00 AM [facility] E871 Hypo-osmolality and hyponatremia Hypo-osmolality and hyponatremia Diagnosis 01/07/2021 10:21:00 AM [facility] E876 Hypokalemia Hypokalemia Diagnosis 01/07/2021 10:21:00 AM [facility] R0789 Other chest pain Other chest pain Diagnosis 01/07/2021 10 :21:00 AM [facility] Z98.61 Coronary angioplasty status Coronary angioplasty statu s Diagnosis 12/29/2020 12:55:47 PM [facility] I10 Essential (primary) hypertension Essential (primary) h ypertension Diagnosis 12/29/2020 12:55:47 PM [facility] E78.5 Hyperlipidemia, unspecified Hyperlipidemia, unspecifie d Diagnosis 12/29/2020 12:55:47 PM [facility] Z7982 long term acute care registered nurse (current) use of aspirin long term acute care 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 Diagnosis 12/13/2020 07:59:[address] [facility] J0390 Acute tonsillitis, unspecified Acute tonsillitis, unsp ecified Diagnosis 12/13/2020 07:59:[address] [facility] J029 Acute pharyngitis, unspecified Acute pharyngitis, unsp ecified Diagnosis 12/13/2020 07:59:[address] [facility] K29.71 Gastritis, unspecified, with bleeding Ga stritis, unspecified, with bleeding Diagnosis 11/14/2020 12:00:00 AM EDT [facility] ([facility]) 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.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, unspecified Acute pancreatitis with uninfected necrosis, unspecified Diagnosis 12:00:00 AM EDT [facility] ([facility]) Z87.891 Personal history of nicotine dependence Personal history of nicotine dependence Diagnosis 11/14/2020 12:00:00 AM EDT [facility] ([facility]) Z86.19 Personal history of other infectious and parasitic diseases Personal history of other infectious and parasitic diseases Diagnosis 12:00:00 AM EDT [facility] ([facility]) 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) Diagnosis 11/14/2020 12:00:00 AM EDT [facility] ([facility]) Z85.46 Personal history of malignant neoplasm o f prostate Personal history of malignant neoplasm of prostate Diagnosis 11/14/2020 12:00:00 AM EDT [facility] ([facility]) Z79.84 long term acute care registered nurse (current) use of oral hypoglyc emic drugs long term acute care registered nurse (current) use of oral hypoglycemic drugs Diagnosis 11/14/2020 12:00:00 AM EDT [facility] ([facility]) Z79.82 long term acute care registered nurse (current) use of aspirin jail (cu rrent) use of aspirin Diagnosis 11/14/2020 12:00:00 AM EDT [facility] ([facility] ) Z95.5 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 of coronary angioplasty implant and graft Diagnosis 11/14/2020 12:00:00 AM EDT NDO C ([facility]) Z68.41 Body mass index (BMI) 40.0-44.9, adult B justo mass index [BMI] 40.0-44.9, adult Diagnosis 11/14/2020 12:00:00 AM EDT [facility] ([facility]) E66.9 Obesity, unspecified Obesity, unspecified Diagnosis 11/14/2020 12:00:00 AM EDT [facility] ([facility]) E78.5 Hyperlipidemia, unspecified Hyperlipidemia, unspecifie d Diagnosis 11/14/2020 12:00:00 AM EDT [facility] ([facility]) K21.9 Gastro-esophageal reflux disease without esophagitis Gastro-esophageal reflux disease without esophagitis Diagnosis 11/14/2020 12:00:00 AM ED T [facility] ([facility]) K76.0 Fatty (change of) liver, not elsewhere c lassified Fatty (change of) liver, not elsewhere classified Diagnosis 11/14/2020 12:00:00 AM EDT [facility] ([facility]) E04.2 Nontoxic multinodular goiter Nontoxic multinodular goi ter Diagnosis 11/14/2020 12:00:00 AM EDT [facility] ([facility]) M15.9 Polyosteoarthritis, unspecified Polyosteoarthritis, un specified Diagnosis 11/14/2020 12:00:00 AM EDT [facility] ([facility]) I10 Essential (primary) hypertension Essential (primary) h ypertension Diagnosis 11/14/2020 12:00:00 AM EDT [facility] ([facility]) I25.10 Atherosclerotic heart diseas e of [place] coronary artery without angina pectoris Atherosclerotic heart disease of [place] coronary artery without angina pectoris Diagnosis 11/14/2020 12:00:00 AM EDT [facility] ([facility]) E11.51 Type 2 diabetes mellitus wit h diabetic peripheral angiopathy without gangrene Type 2 diabetes mellitus with diabetic p eripheral angiopathy without gangrene Diagnosis 11/14/2020 12:00:00 AM EDT [facility] ([facility]) K29.80 Duodenitis without bleeding Duodenitis without bleedin g Diagnosis 11/14/2020 12:00:00 AM EDT [facility] ([facility]) J44.9 Chronic obstructive pulmonary disease, u nspecified Chronic obstructive pulmonary disease, unspecified Diagnosis 11/14/2020 12:00:00 AM EDT [facility] ([facility]) 705.21 Hyperhidrosis Hyperhidrosis Problem 01/01/2020 12:00:00 AM EST [facility] ([facility]) 705.21 Hyperhidrosis Hyperhidrosis Problem 01/01/2020 12:00:00 AM EST [facility] ([facility]) 705.21 Hyperhidrosis Hyperhidrosis Problem 01/01/2020 12:00:00 AM EST [facility] ([facility]) 705.21 Hyperhidrosis Hyperhidrosis Problem 01/01/2020 12:00:00 AM EST [facility] ([facility]) 705.21 Hyperhidrosis Hyperhidrosis Problem 01/01/2020 12:00:00 AM EST [facility] ([facility]) Surgeries/Procedures Procedure Description Date Indications Data Source(s) HbA1c (Glycosolated) HbA1c (Glycosolated) 12/22/2020 12:00:00 AM ED [facility] ([facility]) GLUCOSE GLUCOSE 12/22/2020 12:00:00 AM [facility] COLLECTION VENOUS BLOOD VENIPUNCTURE BLOOD DRAW 12/22/2020 12:00: 00 AM EDT [facility] [place] ([facility]) HbA1c (Glycosolated) (waived laboratory) HbA1c (Glycos olated) (waived laboratory) 10/09/2020 12:00:00 AM EDT [facility] ([facility]) GLUCOSE (waived laboratory) GLUCOSE (waived laboratory) 09/21 12:00:00 AM [facility] ([facility]) COLLECTION VENOUS BLOOD VENIPUNCTURE BLOOD DRAW 10/09/2020 12:00: 00 AM [facility] ([facility]) HbA1c (Glycosolated) HbA1c (Glycosolated) 10/09/2020 12:00:00 AM ED [facility] ([facility]) HbA1c (Glycosolated) (waived laboratory) HbA1c (Glycos olated) (waived laboratory) 07/14/2020 12:00:00 AM T [facility] [place] ([facility]) COLLECTION VENOUS BLOOD VENIPUNCTURE BLOOD DRAW 07/14/2020 12:00: 00 AM [facility] ([facility]) HbA1c (Glycosolated) HbA1c (Glycosolated) 07/14/2020 12:00:00 AM ED [facility] ([facility]) ECG ROUTINE ECG W/LEAST 12 LDS W/I&R <td>POCT AMB EKG</td><td>Routine</td><td>02/12/2020 1:41 PM EST</td><td> Coronary angioplasty status</td><td> </td> 02/12/2020 06:41:00 PM EST Coronary angioplasty status [facility] Coronary angioplasty status Results ID Date Data Source [id number] 01/07/2021 11:40:00 PM [facility] [address] [place] [address] PHONE: [phone] FAX: [phone] Name ..............: DELANO Culver Acct Number ...........................: [id number] ROOM. ............: VT01 MR Number ............................: [id number] Stay type.........: E/R Discharge Date...............:01/07/21 Admit Date .....: 01/07/21 Admit Phys .............................: HOLLIS LIAO Date of ..: 1940 Family Phys ...........................: AMY APONTE Phone..............: [phone] Age.................................:80 Film# ...............:[id number] Sex.................................:M Unsigned transcriptions are preliminary reports and do [id number] COMPLETE:01/07/21 14:05 [place] [id number] Please See Scanned Results. Name Value Range Interpretation Code Description Data Dayna rce(s) Supporting Document(s) ID Date Data Source [id number] 01/07/2021 10:21:00 AM [facility] 1 OrderSheet [facility] Emergency Department [address] [place] [address] Phone #: ext- [phone] 01/07/2021 10:16 Patient: TERESA WICK Sex: M : 1940 Age: 80yWEIGHT:117.0 kg (S) HEIGHT:67 inches (S) BMI:40.4ALLERGIES: No Known Drug AllergyCHIEF COMPLAINT: chest pain, discomfortDIAGNOSIS: Chest wall pain, Atypical chest pain, Hyponatremia, HypokalemiaLAB ORDERSOrder Description Priority Entered Acknowledged InitialedCBC w Diff STAT 11:16 01/07/2021 11:23 Hollis Donnelly Riccardo Rachel R.N. M.D.;CMP STAT 11:16 01/07/2021 11:23 Hollis Donnelly Riccardo Rachel R.N. M.D.;Lipase STAT 11:16 01/07/2021 11:23 Hollis Donnelly Riccardo Rachel R.N. M.D.;Troponin-T STAT 11:16 01/07/2021 11:23 Hollis Donnelly Riccardo Rachel R.N. M.D.;BNP STAT 11:16 01/07/2021 11:23 Hollis Donnelly Riccardo Rachel R.N. M.D.;DIAGNOSTIC STUDY ORDERSOrder Description Priority Entered Acknow ledged InitialedChest 2 View STAT 11:16 01/07/2021 11:53 Andrzej,(Oxygen?(No)) Edith Shafer R.N., M.D.; Reason for Study: Chest PainMEDICATION/IV/DRIP/FLUID ORDERSOrder Description Priority Entered Acknowledged InitialedOndansetron ODT 11:48 01/07/2021 11:48 Andrzej,PO 4 mg Nina Donnelly.N. R.NDano; Verbal order per; Edith Shafer M.D.Tylenol 1 g PO X1 12:12 01/07/2021 12:17 Andrzej, 2 OrderSheet [facility] Emergency Department [address] [place] [address] Phone #: ext- [phone] 01/07/2021 10:16 Patient: TERESA WICK Sex: M : 1940 Age: 80ydose: 1000 mg Edith Shafer R.N.(NOW x1) [place];Potassium Chloride 12:12 01/07/2021 12:18 Andrzej,Liquid PO 40 meq Edith Shafer R.N., M.D.;Ativan PO 0.5 mg 12:12 01/07/2021 12:18 Hollis Donnelly Riccardo Rachel R.N. M.D.;GENERAL ORDERSOrder Description Priority Entered Acknowledged InitialedBlood Pressure 11:16 01/07/2021 11:17 Andrzej,Monitor Edith Shafer R.N., M.D.;Fire Controlman 11:16 01/07/2021 11:17 Andrzej,(continuous) Edith Shafer R.N., M.D.;EKG 11:16 01/07/2021 11:17 Hollis Donnlely Riccardo Rachel R.N. M.D.;NPO 11:16 01/07/2021 11:17 Hollis Donnelly Riccardo Rachel R.N. M.D.;Obtain Old EKG 11:16 01/07/2021 11:17 Hollis Donnelly Riccardo Rachel R.N. M.D.;Obtain Old Records 11:16 01/07/2021 11:17 Hollis Donnelly Riccardo Rachel R.N. M.D.;Oxygen titrate to 11:16 01/07/2021 11:17 Andrzej92% Edith Shafer R.N., M.D.;Pulse oximeter 11:16 01/07/2021 11:17 Andrzej,(Continuous) Edith Shafer R.N., M.D.;Vitals 11:16 01/07/2021 11:17 Andrzej, Edith Shafer R.N., M.D.;[Electronically signed by Elizabeth Freeman RN (15:01/07/2021)][Electronically signed by Edith Shafer M.D. (18:43 01/07/2021)][Electronically locked by Elizabeth Freeman RN (15:01/07/2021)] Name Value Range Interpretation Code Description Data Dayna rce(s) Supporting Document(s) ID Date Data Source [id number] 01/07/2021 10:21:00 AM [facility] 1 Medication Reconciliation Report [facility] Emergency Department [address] [place] [address] Phone #: ext- [phone] 01/07/2021 10:16 Patient: TERESA WICK Sex: M : 1940 Age: 80yWeight: 117.0 kgHeight/Length: 67 in.BMI: 40.4ALLERGIES: No Known Drug AllergyThe patient's Home Medications are listed below:CONTINUE TAKING THE FOLLOWING MEDICATIONS: amLODIPine Besylate Oral 5 mg, daily Atenolol Oral (50 mg) 1 tablet, 2x a day, last dose: 710012 5584 Ergocalciferol Oral (1.25 MG (61654 UT)), every 2 weeks Esomeprazole Magnesium Oral (40 mg) 1 capsule, daily, last dose: 947888 2316 Fenofibrate Oral (48 mg) 1 tablet, bedtime, last dose: 701367 6134 Hydrochlorothiazide Oral (25 mg) 1 tablet, daily, last dose: 5080227 Losartan Potassium Oral (100 mg), daily, last dose: 5070226 metFORMIN HCl Oral 500 mg, 2x a day Metoclopramide HCl Oral 10 mg, daily Pantoprazole Sodium Oral 40 mg, daily Potassium Chloride ER Oral (20 meq) 1 tablet, bedtime, last dose: 5070226 Simvastatin Oral 80 mg, daily Sucralfate Oral 1 gm, daily Travatan Z Ophthal valeriano (0.004 %) 1 drop, last dose: 5070226 Vitamin D Oral 26592 units, every two weeks 2 Medication Reconciliation Report [facility] Emergency Department [address] [place] [address] Phone #: ext- [phone] 01/07/2021 10:16 Patient: TERESA WICK Sex: M : 1940 Age: 80yThe source(s) of the original Home Medication information:Not obtained.The following Medications were given to the patient in the Emergency Department:Ondansetron ODT [PO] PO 4 mg, administered: 11:48 01/07/2021Tylenol [PO] PO 1000 mg, administered: 12:17 1POTASSIUM CHLORIDE LIQUID PO PO 40 meq, administered: 12:18 01/07/2021tivan [PO] PO 0.5 mg, administered: 12:18 01/07/2021The following Medications were prescribed to the patient:None. Name Value Range Interpretation Code Description Data Dayna rce(s) Supporting Document(s) ID Date Data Source [id number] 01/07/2021 10:21:00 AM EST [facility] 1 Medication Administration Record [facility] Emergency Department [address] [place] [address] Phone #: ext- [phone] 01/07/2021 10:16 Patient: TERESA WICK Sex: M : 1940 Age: 80yWeight: 117.0 kgHeight/Length: 67 inBMI: 40.4ALLERGIES: No Known Drug Allergy Date/Time Medication Administered Medication OrderedGiven ONDANSETRON ODT [PO] Ondansetron ODT PO 4 mg11:48 01/07/2021 Dose: 4 mg Oral Disintegrating TabletsNina Donnelly RDanoNDano POGiven TYLENOL [PO] (APAP) Tylenol 1 g PO X1 dose: 1000 m g12:17 01/07/2021 Dose: 1000 mg PO (NOW x1)Nina Donnelly R.N.Given POTASSIUM CHLORIDE LIQUID PO Potassium Chloride Liquid PO 4012:18 01/07/2021 Dose: 40 meq PO meqNina Donnelly R.NDanoGiven ATIVAN [PO] (LORAZEPAM) Ativan PO 0.5 mg12:18 01/07/2021 Dose: 0.5 mg Nina Bradley R.NDano Name Value Range Interpretation Code Description Data Dayna rce(s) Supporting Document(s) ID Date Data Source [id number] 01/07/2021 10:21:00 AM EST [facility] 1 General Instructions [facility] Emergency Department [address] [place] [address] Phone #: ext- [phone] 01/07/2021 10:16 Patient: TERESA WICK Sex: M : 1940 Age: 80yAtypical chest painChest wall painHypokalemiaMild hyponatremiaINSTRUCTIONSAvoid stimulants (such as cigarettes, coffee, cold medicines, sinus medicines, street drugs).Warnings: Further evaluation is necessary in order to conduct further tests (CARDIOLOGY). It is veryimportant to follow up with a healthcare provider.GENERAL WARNINGS: Return or contact your physician immediately if your condition worsens orchanges unexpectedly, if not improving as expected, or if other problems arise. SPECIFICALLY, return ifyou develop chest, neck, jaw, shoulder, arm, or back pain, difficulty breathing, a fluttering sensation in yourchest, lightheadedness, fainting, excessive fatigue, or sudden sweating.Your Current Medications: Your current home medications have been reviewed.CONTINUE TAKING THE FOLLOWING MEDICATIONS:amLODIPine Besylate Oral : 5 mg daily.Atenolol Oral : Tablet 50 mg, 1 tablet 2x a day, Last: 5080227.Ergocalciferol Oral : Capsule 1.25 MG (81656 UT), every 2 weeks.Esomeprazole Magnesium Oral : Capsule Delayed Release 40 mg, 1 capsule daily, Last: 5080227.Fenofibrate Oral : Tablet 48 mg, 1 tablet bedtime, Last: 5070226.Hydrochlorothiazide Oral : Tablet 25 mg, 1 tablet daily, Last: 5080227.Losartan Potassium Oral : Tablet 100 mg, daily, Last: 5070226.metFORMIN HCl Oral : 500 mg 2x a day.Metoclopramide HCl Oral : 10 mg daily.Pantoprazole Sodium Oral : 40 mg daily.Potassium Chloride ER Oral : Tablet Extended Release 20 meq, 1 tablet bedtime, Last: 5070226.Simvastatin Oral : 80 mg daily.Sucralfate Oral : 1 gm daily.Travatan Z Ophthalmic : Solution 0.004 %, 1 drop, Last: 5070226.Vitamin D Oral : 99377 units every two weeks.Follow-up:Return to the emergency department as needed. Follow up with a dance hall hostess in three days even if well.Call for an appointment. Reason for referral: evaluation and treatment. Summary of care provided topatient via paper. 2 General Instructions [facility] Emergency Department [address] [place] [address] Phone #: ext- [phone] 01/07/2021 10:16 Patient: TERESA WICK Sex: M : 1940 Age: 80yUnderstanding of the discharge instructions verbalized by patient. Expected course of illness, dischargeinstructions, activity level, diet, follow-up appointment and risks and benefits of treatment reviewed withpatient and understanding verbalized. Agrees to plan of care.Follow-up with: Kobi Zurita MD, Cardiology, , [address] [place] [address], Formerly [facility], 1928–1983 Follow up in three days even if well. Call for an appointment. Reason for referral: evaluation andtreatment. Summary of care provided to patient via paper. ADDITIONAL INFORMATIONNoncardiac Chest PainBased on your visit today, the healthcare provider doesn't know what is causing your chest pain. Inmost cases, people who come to the emergency room with chest pain don't have a problem with theirheart. Instead, the pain is caused by other conditions. It's important for the healthcare team to be sureyou are not having a life-threatening cause for chest pain such as: Heart attack Blood clot in the lungs Collapsed lung Ruptured esophagus Tearing o f the aortaOnce these major causes have been ruled out, you may have further evaluation for nonheart causes 3 General Instructions [facility] Emergency Department [address] [place] [address] Phone #: ext- [phone] 01/07/2021 10:16 Patient: TERESA WICK Sex: M : 1940 Age: 80yof chest pain. These may be problems with the lungs, muscles, bones, digestive tract, nerves, ormental health. They include: Inflammation around the lungs (pleurisy) Collapsed lung (pneumothorax) Fluid around the lungs (pleural effusion) Lung cancer (a rare cause of chest pain) Inflamed cartilage between the ribs (costochondritis) Fibromyalgia Rheumatoid arthritis Chest wall strain Reflux Stomach ulcer Spasms of the esophagus Gall stones Gallbladder inflammation Panic or anxiety attacks Emotional distressYour condition doesn't seem serious. And your pain doesn't seem to be coming from your heart. Butsometimes the signs of a serious problem take more time to appear. Watch for the warning signslisted below.Home careFollow these g uidelines when caring for yourself at home: Rest today and don't do any strenuous activity. Take any prescribed medicine as directed.Follow-up careFollow up with your healthcare provider, or as advised, if you don't start to feel better in 24 hours.Call 911 4 General Instructions [facility] Emergency Department [address] [place] [address] Phone #: ext- [phone] 01/07/2021 10:16 Patient: TERESA WICK Sex: M : 1940 Age: 80yCall 911 if any of these occur: A change in the type of pain: if it feels different, becomes more severe, lasts longer, or begins to spread into your shoulder, arm, neck, jaw or back Shortness of breath or increased pain with breathing Weakness, dizziness, or fainting Rapid heart beat Crushing sensation in your chestWhen to seek medical adviceCall your healthcare provider right away if any of these occur: Cough with dark colored sputum (phlegm) or blood Fever of 100.4F (38C) or higher, or as directed by your healthcare provider Swelling, pain or redness in one leg [id number] [employer]. [address] [place] [address], [place] [address]. All rights reserved. This information is not intended as asubstitute for professional medical care. Always follow your healthcare professional's instructions.Chest Wall Pain: CostochondritisThe chest pain that you have had today is caused by costochondritis. This condition is caused by an 5 General Instructions [facility] Emergency Department [address] [place], [place] [id number] Phone #: ext- [phone] 01/07/2021 10:16 Patient: TERESA WICK Sex: M : 1940 Age: 80yinflammation of the cartilage joining your ribs to your breastbone. It's not caused by heart or lungproblems. Your healthcare team has made sure that the chest pain you feel is not from a lifethreatening cause of chest pain such as heart attack, collapsed lung, blood clot in the lung, tear in theaorta, or esophageal rupture. The inflammation may have been brought on by a blow to the chest,lifting heavy objects, intense exercise, or an illness that made you cough and sneeze a lot. It oftenoccurs during times of emotional stress. It can be painful, but it's not dangerous. It usually goes awayin 1 to 2 weeks. But it may happen again. Rarely, a more serious condition may cause symptomssimilar to costochondritis. That's why it's important to watch for the warning signs listed below.Home careFollow these guidelines when caring for yourself at home: If you feel that emotional stress is a cause of your condition, try to figure out the sources of that stress. It may not be obvious. Learn ways to deal with the stress in your life. This can include regular exercise, muscle relaxation, meditation, or simply taking time out for yourself. You may use acetaminophen, ibuprofen, or naproxen to control pain, unless another pain medicine was prescribed. If you have liver or kidney disease or ever had a stomach ulcer, talk with your healthcare provider before using these medicines. You can also help ease pain by using a hot, wet compress or heating pad. Use this with or without a medicated skin cream that helps relieves pain. Do stretching exercise as advised by your provider. Typically rest is beneficial for the first few days. Avoid strenuous activity that worsens the pain. Take any prescribed medicines as directed.Follow-up careFollow up with your healthcare provider, or as advised.When to seek medical adviceCall your healthcare provider right away if any of these occur: A change in the type of pain. Call if it feels different, becomes more serious, lasts longer, or spreads into your shoulder, arm, neck, jaw, or back. Shortness of breath or pain gets worse when you breathe Weakness, dizziness, or fainting Cough with dark-colored sputum (phlegm) or blood 6 General Instructions [facility] Emergency Department [address] [place] [address] Phone #: ext- [phone] 01/07/2021 10:16 -- Patient: TERESA WICK Sex: M : 1940 Age: 80y Abdominal pain Dark red or black stools Fever of 100.4F (38C) or higher, or as directed by your healthcare provider [phone] [employer]. [address] [place] [address], [place] [address]. All rights reserved. This information is not intended as asubstitute for professional medical care. Always follow your healthcare professional's instructions.HypokalemiaHypokalemia means a low level of potassium in the blood. This most often occurs in people who takewater pills (diuretics). It can also occur because of severe vomiting or diarrhea. You may also have itif you take laxatives for long periods of time. It sometimes happens if you have low magnesium(hypomagnesemia). If you have this, your healthcare provider will treat the low magnesium first.A mild case of hypokalemia usually causes no symptoms. It is only found with blood testing. Moresevere potassium loss causes overall weakness, muscle or abdominal cramps, rapid or irregularheartbeats (heart palpitations), low blood pressure,muscle weakness, and in some indviduals cancause temporary paralysis. .Home care Take any potassium supplements as prescribed. Eat foods rich in potassium. The highest amount is found in avocado, baked potatoes, spinach, cantaloupe, cod, halibut, salmon, and scallops. White, red, or christianson beans are also very good sources. A modest amount of potassium is found in orange juice, bananas, carrots, and tomato juice. If you take certain types of diuretics, you will also need to take potassium supplements. If you take a diuretic, discuss potassium supplements with your doctor.Follow-up careFollow up with your healthcare provider for a repeat blood test within the next week, or as advised byour staff.When to seek medical adviceCall your healthcare provider right away if any of the following occur: Increased weakness, fatigue, or muscle cramps Dizziness 7 General Instructions [facility] Emergency Department [address] [place] [address] Phone #: ext- [phone] 01/07/2021 10:16 Patient: TERESA WICK Sex: M : 1940 Age: 80yCall 911Call 911 if any of the following occur: Irregular heartbeat, extra beats, or very fast heart rate Loss of consciousness [phone] [employer]. [address] [place] [address]. All rights reserved. This information is not intended as asubstitute for professional medical care. Always follow your healthcare professional's instructions.HyponatremiaHyponatremia means low sodium levels in the blood. This condition most often occurs after prolongedvomiting or diarrhea, which causes your body to lose too much water and sodium. It can also resultfrom drinking excess amounts of water or the use of diuretics (water pills). Rarely, it can beassociated with disorders of your endocrine system, as side effects of illicit drug use (ecstasy), as acomplication of some cancers especially small cell lung cancer, or as a complication of renal and liverdisease or heart failure.Mild hyponatremia causes no symptoms. It is only discovered with a blood test. As sodium levels inthe blood decreases, symptoms begin to appear. This includes weakness, confusion, musclecramping and seizures.Home care Reduce your daily water intake until the problem is corrected. If you have been taking diuretics, you may be asked to stop taking them for a short time. If you are having symptoms of weakness or confusion, do not drive or operate dangerous machinery until symptoms resolve. If your sodium levels are too low to be managed at home with the above recommendations, you will be asked to go to the hospital to have your sodium replaced through your vein.Follow-up careFollow up with your healthcare provider for a repeat blood test within the next week, or as advised.When to seek medical adviceCall your healthcare provider if any of the following occur: Increasing weakness Dizziness 8 General Instructions [facility] Emergency Department [address] [place] [address] Phone #: ext- [phone] 01/07/2021 10:16 Patient: TERESA WICK Sex: M : 1940 Age: 80y Irregular heartbeat, extra beats or very fast heart rate Increasing confusion Fainting or loss of consciousness Seizure [id number] [employer]. [address] [place] [address]. All rights reserved. This information is not intended as asubstitute for professional medical care. Always follow your healthcare professional's instructions. You have been given the following additional information: Chest Pain, Noncardiac Chest Wall Pain, Costochondritis Hypokalemia Hyponatremia(Electronically signed by Edith Shafer M.D. 01/07/2021 18:43) Name Value Range Interpretation Code Description Data Dayna rce(s) Supporting Document(s) ID Date Data Source [id number] 01/07/2021 10:21:00 AM EST [facility] 1 Clinical Report - Nurses [facility] Emergency Department [address] [place] [address] Phone #: ext- [phone] 01/07/2021 10:16 Patient: TERESA WICK Sex: M : 1940 Age: 80yTRIAGE Arrived by private vehicle. Historian: patient and family. Acuity: LEVEL 3. Chief Complaint: HEADACHE, WEAKNESS and CHEST PAIN. Alert. No acute distress. Onset. (1 months ago). ( PT reports general malaise, MON, and midsternal chest pain x1 month. He was seen at [facility] on 01/01 and diagnosed with a viral syndrome. He was also seen 12/29 by cardiology in [place] and was told everything was normal. PT feels the pain is still present and not improvin g.). No fever or cough. 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 SEPSIS SCREEN: SIRS SCREEN NEGATIVE. SEPSIS SCREEN NEGATIVE. No suspected or confirmed signs of infection present. STEF COMA SCORE: 15- eyes open- spontaneous (4); best verbal response- oriented (5); best motor response- obeys commands (6). --10:43 01/07/21 Nina Donnelly R.N. 10:36 01/07/21. BP: 143/71. HR: 79. RR: 16. O2 saturation: 98%. Temp: 98.2 F. Pain level now 510. --10:43 01/07/21 Nina Donnelly R.N. Weight: 117 kg stated. Height/Length: 67 inches Per Patient. BMI: 40.4. --10:38 01/07/21 Nina Donnelly R.N. Medications Atenolol Oral (Tablet 50 mg) 1 tablet, 2x a day, last dose 336935 1007. Esomeprazole Magnesium Oral (Capsule Delayed Release 40 mg) 1 capsule, daily, last dose 445502 5574. Fenofibrate Oral (Tablet 48 mg) 1 tablet, bedtime, last dose 887460 4397. Losartan Potassium Oral (Tablet 100 mg), daily, last dose 351967 6834. --10:43 01/07/21 Nina Donnelly R.N. Hydrochlorothiazide Oral (Tablet 25 mg) 1 tablet, daily, last dose 980685 5673. Potassium Chloride ER Oral (Tablet Extended Release 20 meq) 1 tablet, bedtime, last dose 509125 2080. Travatan Z Ophthalmic (Solution 0.004 %) 1 drop, last dose 573009 5854. Vitamin D Oral 56981 units, every two weeks. --10:43 01/07/21 Nina Donnelly R.N. Pantoprazole Sodium Oral 40 mg, daily. --10:45 01/07/21 Nina Donnelly R.N. 2 Clinical Report - Nurses [facility] Emergency Department [address] [place] [address] Phone #: ext- [phone] 01/07/2021 10:16 Patient: TERESA WICK Sex: M : 1940 Age: 80ySucralfate Oral 1 gm, daily. --10:45 01/07/21 Nina Donnelly R.N.amLODIPine Besylate Oral 5 mg, daily. --10:47 01/07/21 Nina Donnelly R.N.Ergocalciferol Oral (Capsule 1.25 MG (50578 UT)) (every 2 weeks). --10:47 01/07/21 Nina Donnelly R.N.metFORMIN HCl Oral 500 mg, 2x a day. --10:48 01/07/21 Nina Donnelly R.N.Metoclopramide HCl Oral 10 mg, daily. --10:48 01/07/21 Nina Donnelly R.N.Simvastatin Oral 80 mg, daily. --10:49 01/07/21 Nina Donnelly R.N.The following entry was struck and corrected by Nina Donnelly R.N., 10:48 (01/07/21) Reason forcorrection - other(correction). Losartan Potassium Oral (Tablet 50 mg) 1 tablet, daily, last dose [id number] 5279. --10:43 01/07/21Nina Donnelly R.N.The following entry was struck by Nina Donnelly R.N., 10:46 (01/07/21) Reason - other(stopped taking). Aspirin EC Oral (Tablet Delayed Release 81 mg) 1 tablet, daily, last dose 216700 4343. --10: Nina Donnelly R.N. .AllergiesNo Known Drug Allergy. --10:43 01/07/21 Nian Donnelly R.N.PROBLEMS:Hypercholesterolemia.Gastroesophageal Reflux Disease.Tonsillitis. --10:43 01/07/21 Nina Donnelly R.N.Duodenitis.Duodenal ulcer disease. --11:12 01/07/21 Nina Donnelly R.N.ADDITIONAL SURGERIES:TURP - Trans Urethral Resection of Prostate. --10:43 01/07/21 Nina Donnelly R.N.Cardiac stents. --11:11 01/07/21 Nina Donnelly R.N.HistoryPAST MEDICAL HX: Immunizations: up-to-date.SOCIAL HX: Never smoker. No alcohol use or drug use. He was offered HIV testing but declined andhepatitis C testing but declined. He has not traveled outside the [place]Infectious disease exposure: The patient was not exposed to C-diff, MRSA, VRE, CRE or Coronavirus.SELF HARM ASSESSMENT: Self harm assessment was performed. The patient answered "no" to thequestion(s) "Have you recently felt down, depressed, or hopeless?", "Do you have thoughts of harming orkilling yourself?", "Do you have a plan for harming or killing yourself?", "Have you recently had thoughtsabout harming or killing others?", "Do you have any dangerous items in your possession?", "Have younoticed less interest or pleasure in doing things?", "Are you here because you tried to hurt yourself?" and"Have you ever tried to hurt yourself before today?".ABUSE ASSESSMENT: No report of abuse. 3 Clinical Report - Nurses [facility] Emergency Department [address] [place] [address] Phone #: ext- [phone] 01/07/2021 10:16 Patient: TERESA WICK Sex: M : 1940 Age: 80y NUTRITIONAL RISK ASSESSMENT: The nutritional risk assessment revealed no deficiencies. FUNCTIONAL ASSESSMENT: Functional assessment: no impairments noted. LEARNING NEEDS ASSESSMENT: The learning needs assessment revealed no barriers. FALL RISK ASSESSMENT: Fall risk assessment completed. Risk factors identified include patient age greater than 65 years. Fall interventions initiated. Call light in reach of patient. SKIN INTEGRITY ASSESSMENT: Skin integrity risk assessment completed. No skin integrity risk identified. --10:43 01/07/21 Nina Donnelly R.N. Interventions Identification band on patient. To treatment room. No allergy band on patient. --10:43 01/07/21 Nina Donnelly R.N.PHYSICAL ASSESSMENT Ambulatory to room. GENERAL / NEURO / PSYCH: Alert. Oriented X 4. Appears in no acute distress. HEENT: Pupils equal, round and reactive to light. No facial asymmetry noted. Mucous membranes are pink. RESPIRATORY: Respirations not labored. Lower sternal tenderness. The tenderness reproduces the patient's subjective complaint. Breath sounds within normal limits. CVS: Capillary refill less than 2 seconds. Pulses within normal limits. GI / : Abdomen soft. Abdominal tenderness in the right side of the abdomen. EXTREMITIES: Bilateral 1+ edema of the lower extremities involving both feet. SKIN: Skin is warm and dry. Poor skin turgor. --11:01 01/07/21 Nina Donnelly R.N.NURSING PROGRESS NOTES Monitoring of patient in place. EKG time: (10:33 01/07/2021). EKG was performed by a tech and shown to the ED physician. Patient gowned. Reassurance given. Two patient identifiers checked. Patient ready for evaluation- ED physician notified. --11:01 01/07/21 Nina Donnelly R.N. 11:02 01/07/21. BP: 136/58. HR: 76. RR: 17. O2 saturation: 99%. --11:02 01/07/21 [facility], [facility] Tech1 11:42 01/07/21. BP: 154/83. HR: 70. RR: 25. O2 saturation: 98%. --11:42 01/07/21 [facility], [facility] 11:48 01/07/2021 Ondansetron ODT PO Oral Disintegrating Tablets 4 mg given. Allergies verified and confirmed 5 rights. Information reviewed with patient including reason for taking this medication. Verbalizes understanding. --11:48 01/07/21 Nina Donnelly R.N. 4 Clinical Report - Nurses [facility] Emergency Department [address] [place] [address] Phone #: ext- [phone] 01/07/2021 10:16 Patient: TERESA WICK Sex: M : 1940 Age: 80y 12:01 01/07/21. BP: 154/73. HR: 75. RR: 19. O2 saturation: 98%. --12:02 01/07/21 [facility] Tech, Nadia, ER Tech1 12:17 01/07/2021 Tylenol (APAP) PO 1000 mg given. Allergies verified and confirmed 5 rights. Information reviewed with patient including reason for taking this medication. Verbalizes understanding. --12:17 01/07/21 Nina Donnelly R.N. 12:18 01/07/2021 POTASSIUM CHLORIDE LIQUID PO PO 40 meq given. Allergies verified and confirmed 5 rights. Information reviewed with patient including reason for taking this medication. Verbalizes understanding. --12:18 01/07/21 Nina Donnelly R.N. 12:18 01/07/2021 Ativan (LORazepam) PO 0.5 mg given. Allergies verified and confirmed 5 rights. Information reviewed with patient including reason for taking this medication and sedative warning. Verbalizes understanding. --12:18 01/07/21 Nina Donnelly R.N. Family informed about plan of care. --12:21 01/07/21 Nina Donnelly R.N. 12:34 01/07/21. BP: 125/45. HR: 66. RR: 20. O2 saturation: 98%. --12:35 01/07/21 [employer] plant production worker, Nadia, ER Tech1 13:16 01/07/21. BP: 127/60. HR: 68. RR: 16. O2 saturation: 99%. --13:16 01/07/21 [place] plant production worker, Nadia, ER Tech1 13:30 01/07/21. BP: 132/61. MAP: 84. HR: 72. RR: 23. O2 saturation: 99%. --13:52 01/07/21 [place] plant production worker, Nadia, ER Tech1.DISPOSITION / DISCHARGE 14:02 01/07/21. BP: 128/83. HR: 75. RR: 27. O2 saturation: 100%. Temp: 98.3 F. Pain level now 0/10. --14:02 01/07/21 [place] plant production worker, Nadia, ER Tech1 Departure time: 14:03 01/07/2021. --15:30 01/07/21 Elizabeth Freeman RN Condition at departure: improved. No learning barriers present. Discharge instructions provided and reviewed with the patient. Reviewed referral to a dance hall hostess. Patient and family verbalized understanding. Written instructions provided in Sammarinese. The patient was discharged by the physician. He was discharged home and accompanied by family. He left ambulatory and via private vehicle. Family member driving. --15:31 01/07/21 Elizabeth Freeman RN.Locked/Released at 01/07/2021 15:31 by Elizabeth Freeman RN 5 Clinical Report - Nurses [facility] Emergency Department [address] [place], [place] [address] Phone #: ext- [phone] 01/07/2021 10:16 Patient: TERESA WICK Sex: M : 1940 Age: 80y Name Value Range Interpretation Code Description Data Dayna rce(s) Supporting Document(s) ID Date Data Source [id number] 01/07/2021 10:21:00 AM EST [facility] 1 Clinical Report - Physicians/Mid Levels [facility] Emergency Department [address] [place] [address] Phone #: ext- [phone] 01/07/2021 10:16 Patient: TERESA WICK Sex: M : 1940 Age: 80y Time Seen: 10:42 01/07/2021; initial patient contact. Arrived- By private vehicle. Historian- patient. Disposition decision: 13:54 01/07/2021.HISTORY OF PRESENT ILLNESS Chief Complaint: CHEST PAIN and DISCOMFORT. It is described as located in the central chest area. No radiation. This started 1 month ago and is still present. It has been intermittent and waxing/waning. Onset during rest. At its maximum, severity described as moderate and 5 / 10. When seen in the E.D., severity described as moderate and 5 / 10. Modifying factors- worsened by movement. Relieved by rest. The patient has had nausea. No vomiting, difficulty breathing or diaphoresis. (pt lives home w other family member, had upper GI bleed at [facility] in 11/2020, upper endoscopy showed healed duodenal ulcer; pt saw GI and cardiology (12/29) last week in [place] for F/U; pt also seen at [facility] ER 01/01, told he had viral syndrome; pt's ICE DELIVERY DRIVER is Dr. Valdez who told him to come to ER today). Similar symptoms previously. Patient has had similar symptoms many times. Recent medical care: The patient was seen recently at another facility and hospitalized.REVIEW OF SYSTEMSNo fever, chills, cough, pedal edema or calf pain. No fainting episodes, sore throat, blurred vision,abdominal pain or black stools. No difficulty with urination, skin rash, enlarged lymph nodes, joint pain orbloody stools. The patient has had a mild, dull frontal headache. weakness, intermittent. All othersystems reviewed and are negative.PAST HISTORYSee nurses notes. Problems: Cataracts. GI Bleeding. Prostate Cancer. Obesity. Coronary Artery Disease. Duodenitis. Duodenal ulcer disease. Hypercholesterolemia. Gastroesophageal Reflux Disease. Hypertension. 2 Clinical Report - Physicians/Mid Levels [facility] Emergency Department [address] [place] [address] Phone #: ext- [phone] 01/07/2021 10:16 [id number] Sex[facility] : 1940 Age: 80y Additional Surgeries: Appendectomy. Cardiac stents. Cholecystectomy. 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 Medications: Simvastatin Oral 80 mg, daily. Metoclopramide HCl Oral 10 mg, daily. metFORMIN HCl Oral 500 mg, 2x a day. Ergocalciferol Oral (Capsule 1.25 MG (09290 UT)) (every 2 weeks). amLODIPine Besylate Oral 5 mg, daily. Sucralfate Oral 1 gm, daily. Pantoprazole Sodium Oral 40 mg, daily. Hydrochlorothiazide Oral (Tablet 25 mg) 1 tablet, daily, last dose 357812 2396. Potassium Chloride ER Oral (Tablet Extended Release 20 meq) 1 tablet, bedtime, last dose 054477 0394. Travatan Z Ophthalmic (Solution 0.004 %) 1 drop, last dose 302129 5737. Vitamin D Oral 07810 units, every two weeks. Atenolol Oral (Tablet 50 mg) 1 tablet, 2x a day, last dose 933267 2153. Esomeprazole Magnesium Oral (Capsule Delayed Release 40 mg) 1 capsule, daily, last dose 067243 9286. Fenofibrate Oral (Tablet 48 mg) 1 tablet, bedtime, last dose 051628 8370. Losartan Potassium Oral (Tablet 100 mg), daily, last dose 216678 2002. Allergies: No Known Drug Allergy.SOCIAL HISTORYFormer smoker. No alcohol use or drug use. No recent travel.ADDITIONAL NOTESThe nursing notes have been reviewed with agreement regarding the chief complaint, HPI, ROS, PMH andpatient medications and allergies.PHYSICAL EXAMVital Signs: 01/07/2021 12:01 BP: 154/73. MAP: 100. HR: 75. RR: 19. O2 saturation: 98%.01/07/2021 11:42 BP: 154/83. MAP: 106. HR: 70. RR: 25. O2 saturation: 98%.01/07/2021 11:02 BP: 136/58. MAP: 84. HR: 76. RR: 17. O2 saturation: 99%.01/07/2021 10:36 BP: 143/71. MAP: 95. HR: 79. RR: 16. O2 saturation: 98%. Temp: 98.2 F. Have beenreviewed. Oxygen saturation normal.Appearance: Alert. Oriented X3. No acute distress.Eyes: Pupils equal, round and reactive to light. Eyes normal inspection.ENT: Nose normal. Pharynx normal.Neck: Normal inspection. Neck supple. 3 Clinical Report - Physicians/Mid Levels [facility] Emergency Department [address] [place] [address] Phone #: ext- [phone] 01/07/2021 10:16 Patient: TERESA WICK Sex: M : 1940 Age: 80y CVS: Normal heart rate and rhythm. Heart sounds normal. Pulses normal. Respiratory: No respiratory distress. Chest pain reproducible with palpation of the sternum. Painless inspiration. Breath sounds normal. Abdomen: Soft. Mild tenderness in the epigastric area (chronic). No guarding or rebound tenderness. Bowel sounds normal. No organomegaly. No mass. Femoral pulses equal. Moderately obese. Back: Normal external inspection. Skin: Skin warm and dry. Normal skin color. No rash. Normal skin turgor. Extremities: Extremities exhibit normal ROM. No lower extremity edema. Neuro: Oriented X 3. No motor deficit. No sensory deficit.LABS, X-RAYS, AND EKGEKG: No acute process. No acute ischemia. Normal EKG. Normal sinus rhythm. Rate: 74/min.Normal ST and T waves. EKG unchanged when compared with prior EKG. (12/29/20). The study hasbeen interpreted cont emporaneously by me. The EKG appears to be a good tracing. Interpretation time:10:33 01/07/2021.Chest X-ray: No acute disease. Views: PA and lateral. Technique: good. The X-rays were interpretedby the radiologist. Interpretation time: 11:50 01/07/2021.Laboratory Tests: Laboratory tests have been ordered, with results reviewed and considered in themedical decision making process. CBC w Diff: (CHENCHO: 01/07/2021 11:22) ( MsgRcvd 01/07/2021 11:32) Final results Test Result Flag Units (Reference) CBC W/AUTOMATED DIFF COMPLETE BLOOD COUNT WBC 8.2 10/uL (4.2 - 11.0) RBC 3.96 L 10/uL (4.50 - 6.30) HEMOGLOBIN 11.6 L g/dL (14.0 - 16.0) HEMATOCRIT 32.5 L % (41.0 - 51.0) MCV 82.1 fL (80.0 - 94.0) MCH 29.3 pg (27.0 - 34.0) MCHC 35.7 g/dL (31.0 - 36.0) RDW 13.3 % (11.5 - 14.8) PLATELETS 256 10/uL (150 - 450) MPV 7.8 fL (7.4 - 10.4) NEUT 86.0 H % (37.0 - 80.0) LYMPH 4.9 L % (25.0 - 40.0) MONO 5.6 % (3.0 - 8.0) EOS 2.1 % (0.0 - 7.0) BASO 0.2 % (0.0 - 2.0) %IG 1.2 H % (0.0 - 0.0) %NRBC 0.0 % (0.0 - 0.0) #NEUT 7.00 H 10/uL (2.00 - 6.90) #LYMPH 0.40 L 10/uL (0.60 - 3.40) #MONO 0.46 10/uL (0.00 - 0.90) #EOS 0.17 10/uL (0.00 - 0.70) #BASO 0.02 10/uL (0.00 - 0.20) #IG 0.10 10/uL (0.00 - 0.10) #NRBC 0.00 10/uL (0.00 - 0.00) MANUAL DIFF NOT INDICATED RBC MORPH NOT INDICATED CMP: (CHENCHO: 01/07/2021 11:22) ( MsgRcvd 01/07/2021 12:05) Final results 4 Clinical Report - Physicians/Mid Levels [facility] Emergency Department [address] [place] [address] Phone #: ext- [phone] 01/07/2021 10:16 Patient: TERESA WICK Sex: M : 1940 Age: 80y Test Result Flag Units (Reference) COMPREHENSIVE METABOLIC PANEL COMPREHENSIVE METABOLIC PANEL SODIUM 132 L mEq/L (134 - 153) POTASSIUM 3.3 L mEq/L (3.6 - 5.0) CHLORIDE 91 L mEq/L (98 - 107) CO2 27 MEQ/L (22 - 30) GLUCOSE 169 H MG/DL (70 - 99) BUN 17 MG/DL (7 - 21) CREATININE 1.0 MG/DL (0.7 - 1.5) BUN/CREAT 17 (8 - 27) TOTAL PROTEIN 6.3 G/DL (6.3 - 8.2) ALBUMIN 4.2 G/DL (3.9 - 5.0) GLOBULIN 2.1 L GM/DL (2.4 - 3.2) A/G RATIO 2.0 (0.8 - 2.0) CALCIUM 10.0 MG/DL (8.4 - 10.2) TOTAL BILI <0.7 MG/DL (0.2 - 1.3) ALKALINE PHOS 52 U/L (38 - 126) SGOT/AST 33 U/L (5 - 40) SGPT/ALT 29 U/L (7 - 56) ANION GAP 14.0 mmol/L (8.0 - 16.0) AGE 80 yrs NON-AA GFR >60 mL/min AFR AMER GFR >60 mL/min Male GFR Interprentation 20-49 yrs >60 mL/min Ksfswb76-11 yrs >56 mL/min Normal 60-69 yrs >49 mL/min Normal 70-79yrs>42 mL/min Normal 80 and above >35 mL/min Normal Female GFRInterpretation 20-39 yrs >60 mL/min Normal 40-49 yrs >58 mL/minNormal 50-59 yrs >51 mL/min Normal 60-69 yrs >45 mL/min Clvywk34-92 yrs >39 mL/min Normal 80 and above >32 mL/min NormalLipase: (CHENCHO: 01/07/2021 11:22) ( [facility] 01/07/2021 12:05) Final results Test Result Flag Units (Reference) LIPASE 62 H U/L (13 - 60)Troponin-T: (CHENCHO: 01/07/2021 11:22) ( [facility] 01/07/2021 11:55) Final results Test Result Flag Units (Reference) TROPONIN T <0.01 NG/ML (0.00 - 0.10) TROPONIN T0.1 ng/ml Recommended as the clinical threshold value forTroponin T.BNP: (CHENCHO: 01/07/2021 11:22) ( MsgRcvd 01/07/2021 12:02) Final results Test Result Flag Units (Reference) BNP 322 PG/ML (0 - 450)Chest 2 View: (CHENCHO: 01/07/2021 11:16) ( MsgRcvd 01/07/2021 12:30) Final results Exam [place] [address] [place] [address] PHONE: [phone] FAX: [phone] Name .................. : DELANO Culver Acct Number.................. : [id number] ROOM. ................. : VT-01 MR Number ................... : [id number] Stay type ............. : E/R Discharge Date......... ... : 5 Clinical Report - Physicians/Mid Levels [facility] Emergency Department [address] [place] [address] Phone #: ext- [phone] 01/07/2021 10:16 Patient: TERESA WICK Sex: M : 1940 Age: 80y Admit Date ......... : 01/07/21 Admit Phys .................... : HOLLIS LIAO Date of ....... : 1940 Family Phys ................... : AMY APONTE Phone .................. : [phone] Age ................................ : 80 Film# .................. .:[id number] Sex ................................. : M Unsigned transcriptions are preliminary reports and do not represent a medical or legal document CHEST 2 VIEWS [id number] COMPLETE:01/07/21 11:16 [id number] Reason(s): Chest Pain FRONTAL AND LATERAL CHEST 2 VIEWS INDICATION: Chest pain COMPARISON: 06/30/2015 FINDINGS: Mediastinal and hilar structures are normal. Cardiac silhouette is unremarkable. The lungs are clear. Left diaphragm is mildly elevated which is unchanged. No pleural effusion. Mild disc space narrowing and endplate osteophytes mid and lower thoracic spine. IMPRESSION: No acute disease.. Electronically Reviewed and Signed By Luan Post MD , 01/07/21 12:29, JWS Transcribe Initials: SSR, Transcribe Date: 01/07/21 12:11, Dictation Date: Copy for: 010 EMERGENCY SRV Copy for: AMY DAI via fax Copy for: EMERGENCY DEPT via modem Copy for: 710 MED REC Page 1 of 1.PROGRESS AND PROCEDURESCourse of Care: 13:21 01/07/21. workup all in and reviewed, and pretty much nml except for mild hypoNaand mild hypoK; EKG and CXR nml; pt given potassium PO; pt doing great now, will d/c home winstructions and f/u w Dr. Zurita, dance hall hostess, for his CP duration of 1 month; pt and nephew agree winstructions. Patient counseled in person regarding the patient's stable condition, test results, diagnosis and need for follow-up. Patient agrees with plan of care. 6 Clinical Report - Physicians/Mid Levels [facility] Emergency Department [address] [place] [address] Phone #: ext- [phone] 01/07/2021 10:16 Patient: TERESA WICK Sex: M : 1940 Age: 80y Disposition: Condition: good and stable. Discharge decision based on the following: patient's condition is stable; patient's condition is improved; patient is ambulatory; patient is active; patient drinking fluids; patient eating; patient's pain is controlled; patient's exam is improved; no seriously abnormal test results; improving condition on multiple repeat evaluations; social support is good; transportation is available; follow-up is available; clinical impression is consistent with outpatient treatment.CLINICAL IMPRESSION Atypical chest pain Chest wall pain Hypokalemia Mild hyponatremiaINSTRUCTIONS Avoid stimulants (such as cigarettes, coffee, cold medicines, sinus medicines, street drugs). Warnings: Further evaluation is necessary in order to conduct further tests (CARDIOLOGY). It is very important to follow up with a healthcare provider. GENERAL WARNINGS: Return or contact your physician immediately if your condition worsens or changes unexpectedly, if not improving as expected, or if other problems arise. SPECIFICALLY, return if you develop chest, neck, jaw, shoulder, arm, or back pain, difficulty breathing, a fluttering sensation in your chest, lightheadedness, fainting, excessive fatigue, or sudden sweating. Your Current Medications: Your current home medications have been reviewed. CONTINUE TAKING THE FOLLOWING MEDICATIONS: amLODIPine Besylate Oral : 5 mg daily. Atenolol Oral : Tablet 50 mg, 1 tablet 2x a day, Last: 5080227. Ergocalciferol Oral : Capsule 1.25 MG (45589 UT), every 2 weeks. Esomeprazole Magnesium Oral : Capsule Delayed Release 40 mg, 1 capsule daily, Last: 136364 4949. Fenofibrate Oral : Tablet 48 mg, 1 tablet bedtime, Last: 768656 2835. Hydrochlorothiazide Oral : Tablet 25 mg, 1 tablet daily, Last: 5080227. Losartan Potassium Oral : Tablet 100 mg, daily, Last: 5070226. metFORMIN HCl Oral : 500 mg 2x a day. Metoclopramide HCl Oral : 10 mg daily. Pantoprazole Sodium Oral : 40 mg daily. Potassium Chloride ER Oral : Tablet Extended Release 20 meq, 1 tablet bedtime, Last: 5070226. Simvastatin Oral : 80 mg daily. Sucralfate Oral : 1 gm daily. Travatan Z Ophthalmic : Solution 0.004 %, 1 drop, Last: 5070226. Vitamin D Oral : 92168 units every two weeks. 7 Clinical Report - Physicians/Mid Levels [facility] Emergency Department [address] [place] [address] Phone #: [phone]- [phone] 01/07/2021 10:16 Patient: TERESA WICK Sex: M : 1940 Age: 80y Follow-up: Return to the emergency department as needed. Follow up with a dance hall hostess in three days even if well. Call for an appointment. Reason for referral: evaluation and treatment. Summary of care provided to patient via paper. Understanding of the discharge instructions verbalized by patient. Expected course of illness, discharge instructions, activity level, diet, follow-up appointment and risks and benefits of treatment reviewed with patient and understanding verbalized. Agrees to plan of care. Follow-up with: Kobi Zurita MD, Cardiology, , [address] [place] [address], [phone] Follow up in three days even if well. Call for an appointment. Reason for referral: evaluation and treatment. Summary of care provided to patient via paper.(Electronically signed by Edith Shafer M.D. 01/07/2021 18:43) Name Value Range Interpretation Code Description Data Dayna rce(s) Supporting Document(s) ID Date Data Source [id number] 01/07/2021 12:29:00 PM EST [facility] [address] [place] [address] PHONE: [phone] FAX: [phone] Name .................. : DELANO Culver Acct Number.................. : [id number] ROOM. ................. : [facility] MR Number ................... : [id number] Stay type ............. : E/R Discharge Date......... ... : Admit Date ......... : 01/07/21 Admit Phys .................... : HOLLIS LIAO Date of ....... : 1940 Family Phys ................... : AMY APONTE Phone .................. : [phone] Age ................................ : 80 Film# .................. .:[id number] Sex ................................. : M Unsigned transcriptions are preliminary reports and do not represent a medical or legal document CHEST 2 VIEWS 10990 COMPLETE:01/07/21 11:16 56196 Reason(s): Chest Pain FRONTAL AND LATERAL CHEST 2 VIEWS INDICATION: Chest pain COMPARISON: 06/30/2015 FINDINGS: Mediastinal and hilar structures are normal. Cardiac silhouette is unremarkable. The lungs are clear. Left diaphragm is mildly elevated which is unchanged. No pleural effusion. Mild disc space narrowing and endplate osteophytes mid and lower thoracic spine. IMPRESSION: No acute disease.. Electronically Reviewed and Signed By Luan Post MD , 01/07/21 12:29, PRABHJOT Transcribe Initials: SSR, Transcribe Date: 01/07/21 12:11, Dictation Date: Gas Treater y for: 010 EMERGENCY SRV Copy for: AMY DAI via fax Copy for: EMERGENCY DEPT via modem Copy for: 710 MED REC Page 1 of 1 Name Value Range Interpretation Code Description Data Dayna rce(s) Supporting Document(s) ID Date Data Source [id number] 01/07/2021 12:04:00 PM [facility] Name Value Range Interpretation Code Description Data Dayna rce(s) Supporting Document(s) Lipase [Enzymatic activity/volume] in Serum or Plasma 62 U/L 13 - 60 H [facility] ID Date Data Source [id number] 01/07/2021 12:04:00 PM [facility] Name Value Range Interpretation Code Description Data Dayna rce(s) Supporting Document(s) COMPREHENSIVE METABOLIC PANEL [facility] COMPREHENSIVE METABOLIC PANEL Sodium [Moles/volume] in Serum or Plasma 132 mEq/L 134 - 153 L [facility] Potassium [Moles/volume] in Serum or Plasma 3.3 mEq/L 3.6 - 5.0 L [facility] Chloride [Moles/volume] in Serum or Plasma 91 mEq/L 98 - 107 L [facility] Carbon dioxide, total [Moles/volume] in Serum or Plasma 27 MEQ/L 22 - 30 [facility] Glucose [Mass/volume] in Serum or Plasma 169 MG/DL 70 - 99 H [facility] BUN 17 MG/DL 7 - 21 [facility] Hospit al Creatinine [Mass/volume] in Serum or Plasma 1.0 MG/DL 0.7 - 1.5 [facility] BUN/CREAT 17 8 - [facility] Protein [Mass/volume] in Serum or Plasma 6.3 G/DL 6.3 - 8.2 [facility] Albumin [Mass/volume] in Serum or Plasma 4.2 G/DL 3.9 - 5.0 [facility] Globulin [Mass/volume] in Serum by calculation 2.1 GM/DL 2.4 - 3.2 L [facility] A/G RATIO 2.0 0.8 - 2.0 [facility] Calcium [Mass/volume] in Serum or Plasma 10.0 MG/DL 8.4 - 10.2 [facility] Bilirubin.total [Mass/volume] in Serum or Plasma <0.7 MG/DL 0.2 - 1.3 [facility] Alkaline phosphatase [Enzymatic activity/volume] in Serum or Plasma 52 U/L 38 - 126 [facility] Aspartate aminotransferase [Enzymatic activity/volume] in Serum or Plasma 33 U/L 5 - 40 [facility] Alanine aminotransferase [Enzymatic activity/volume] in Seru m or Plasma 29 U/L 7 - 56 [facility] Anion gap 3 in Serum or Plasma 14.0 mmol/L 8.0 - 16.0 [facility] AGE [address] [facility] NON-AA GFR >60 mL/min [facility] ital AFR AMER GFR >60 mL/min [facility] Ho spital Male GFR In terprentation 20-49 yrs >60 mL/min Normal 50-59 yrs >56 mL/min Normal 60-69 yrs >49 mL/min Normal 70-79yrs >42 mL/min Normal 80 and above >35 mL/min Normal Female GFR Interpretation 20-39 yrs >60 mL/min Normal 40-49 yrs >58 mL/min Normal 50-59 yrs >51 mL/min Normal 60-69 yrs >45 mL/min Normal 70-79 yrs >39 mL/min Normal 80 and above >32 mL/min Normal ID Date Data Source [id number] 01/07/2021 12:02:00 PM EST [facility] Name Value Range Interpretation Code Description Data Dayna rce(s) Supporting Document(s) BNP 322 PG/ML 0 - 450 [facility] ID Date Data Source [id number] 01/07/2021 11:55:00 AM [facility] Name Value Range Interpretation Code Description Data Dayna rce(s) Supporting Document(s) TROPONIN T <0.01 NG/ML 0.00 - 0.10 [facility] ospital TROPONIN T0.1 ng/ml Recommended as the c linical threshold value Israeln T. ID Date Data Source [id number] 01/07/2021 11:32:00 AM EST [facility] Name Value Range Interpretation Code Description Data Dayna rce(s) Supporting Document(s) CBC W/AUTOMATED DIFF [facility] COMPLETE BLOOD COUNT Leukocytes [#/volume] in Blood by Automated count 8.2 10^3/uL 4.2 - 1 1.0 [facility] Erythrocytes [#/volume] in Blood by Automated count 3.96 10^6/uL 4. 50 - 6.30 L [facility] Hemoglobin [Mass/volume] in Blood 11.6 g/dL 14.0 - 16.0 L [facility] Hematocrit [Volume Fraction] of Blood by Automated count 32.5 % 4 1.0 - 51.0 L [facility] Erythrocyte mean corpuscular volume [Entitic volume] by Auto mated count 82.1 fL 80.0 - 94.0 [facility] Erythrocyte mean corpuscular hemoglobin [Entitic mass] by Automated count 29.3 pg 27.0 - 34.0 [facility] Erythrocyte mean corpuscular hemoglobin concentration [Mass/volume] by Automated count 35.7 g/dL 31.0 - 36.0 [facility] Erythrocyte distribution width [Ratio] by Automated count 13.3 % 11.5 - 14.8 [facility] Platelets [#/volume] in Blood by Automated count 256 10^3/uL 150 - 45 0 [facility] Platelet mean volume [Entitic volume] in Blood by Automated count 7.8 fL 7.4 - 10.4 [facility] Neutrophils/100 leukocytes in Blood by Automated count 86.0 % 37. 0 - 80.0 H [facility] Lymphocytes/100 leukocytes in Blood by Manual count 4.9 % 25.0 - 40.0 L [facility] Monocytes/100 leukocytes in Blood by Automated count 5.6 % 3.0 - 8.0 [facility] Eosinophils/100 leukocytes in Blood by Automated count 2.1 % 0.0 - 7.0 [facility] Basophils/100 leukocytes in Blood by Automated count 0.2 % 0.0 - 2.0 [facility] %IG 1.2 % 0.0 - 0.0 H [facility] Hospit al %NRBC 0.0 % 0.0 - 0.0 [facility] Neutrophils [#/volume] in Blood by Automated count 7.00 10^3/uL 2.00 - 6.90 H [facility] Lymphocytes [#/volume] in Blood by Automated count 0.40 10^3/uL 0.60 - 3.40 L [facility] Monocytes [#/volume] in Blood by Automated count 0.46 10^3/uL 0.00 - 0.90 [facility] Eosinophils [#/volume] in Blood by Automated count 0.17 10^3/uL 0.00 - 0.70 [facility] Basophils [#/volume] in Blood by Automated count 0.02 10^3/uL 0.00 - 0.20 [facility] #IG 0.10 10^3/uL 0.00 - 0.10 [facility] H ospital #NRBC 0.00 10^3/uL 0.00 - 0.00 [facility] ospital MANUAL DIFF NOT INDICATED [facility] RBC MORPH NOT INDICATED [facility] ID Date Data Source [id number] 01/01/2021 12:48:00 PM EST [facility] Name Value Range Interpretation Code Description Data Dayna rce(s) Supporting Document(s) SARS coronavirus 2 RNA [Presence] in Res piratory specimen by DANNY with probe detection NEGATIVE [facility] This lab was ordered by [facility] a nd reported by [facility] [place]. ID Date Data Source [id number] 12/19/2020 07:06:00 AM EDT [facility] ([facility]) Name Value Range Interpretation Code Description Data Dayna rce(s) Supporting Document(s) Reported Physicians See Note Reported Physici brenden [facility] ([facility]) Note: Reported Physicians:Ordering: ATUL POP [id number]: Alexi VOulting: Rosa OLIVAmitting: Hien VO To: Hien VO To: Mana OLIVA To: Aleyda Valdez ID Date Data Source [id number] 12/19/2020 07:06:00 AM EDT [place] ([facility]) Name Value Range Interpretation Code Description Data Dayna rce(s) Supporting Document(s) GLUCOSE, FASTING 137 MG/DL Above high normal GLUCOSE, FAS TING [place] ([facility]) BLOOD UREA NITROGEN 12 MG/DL Normal BLOOD UREA NITRO GEN [place] ([facility]) CREATININE FOR GFR 1.12 MG/DL Normal CREATININE FOR GF R [place] ([facility]) GLOMERULAR FILTRATION RATE > 60.0 Normal GLOMERULA R FILTRATION RATE [place] ([facility]) Note: Units are mL/min/1.73 m2 Chroni c Kidney Disease Staging per NKF: Stage I & II GFR >=60 Normal to Mildly Decreased Stage III GFR 30- 59 Moderately Decreased Stage IV GFR 15-29 Severely Decreased Stage V GFR <15 Very Little GFR Left ESRD GFR <15 on [employer] SODIUM LEVEL 139 MEQ/L Normal SODIUM LEVEL [facility]) POTASSIUM SERUM 4.3 MEQ/L Normal POTASSIUM SERUM [facility]) CHLORIDE LEVEL 109 MEQ/L Above high normal CHLORIDE LEVEL [facility]) CARBON DIOXIDE LEVEL 24 MEQ/L Normal CARBON DIOXIDE LEVEL [facility]) Anion gap in Body fluid 6 MEQ/L Below low normal ANION GAP [facility]) CALCIUM LEVEL 8.3 MG/DL Below low normal CALCIUM LEVEL GR [facility] ([facility]) AST/SGOT 17 U/L Normal AST/SGOT [place] ([facility]) ALT/SGPT 18 U/L Normal ALT/SGPT [place] ([facility]) Alkaline phosphatase [Enzymatic activity/volume] in Se rum, Plasma or Blood 37 U/L Below low normal ALKALINE PHOSPHATASE [facility]) BILIRUBIN,TOTAL 0.4 MG/DL Normal [facility]) TOTAL PROTEIN 5.5 GM/DL Below low normal TOTAL PROTEIN [facility] ([facility]) Albumin [Mass/volume] in Blood by Bromocresol purple ( BCP) dye binding method 2.9 GM/DL Below low normal ALBUMIN [place] ([facility]) ALBUMIN/GLOBULIN RATIO 1.1 Normal ALBUMIN/GLOBU TOVA RATIO [facility]) ID Date Data Source [id number] 12/19/2020 07:06:00 AM EDT [place] ([facility]) Name Value Range Interpretation Code Description Data Dayna rce(s) Supporting Document(s) Reported Physicians See Note Reported Physic ans [place] ([facility]) Note: Reported Physicians:Ordering: ATUL POP [id number], JOAN C.Attending: Alexi VOulting: Rosa OLIVAmitting: Hien VO To: Hien VO To: Mana OLIVA To: Aleyda Valdez ID Date Data Source [id number] 12/19/2020 07:06:00 AM EDT [place] ([facility]) Name Value Range Interpretation Code Description Data Dayna rce(s) Supporting Document(s) LIPASE 390 U/L Normal LIPASE [place] ([facility]) ID Date Data Source [id number] 12/19/2020 07:06:00 AM EDT [place] ([facility]) Name Value Range Interpretation Code Description Data Dayna rce(s) Supporting Document(s) Reported Physicians See Note Reported Physic ans [place] ([facility]) Note: Reported Physicians:Ordering: ATUL POP [id number], JOAN C.Attending: Alexi VOulting: Rosa OLIVAmitting: Hien VO To: Hien VO To: Mana OLIVA To: Aleyda Valdez ID Date Data Source [id number] 12/19/2020 07:06:00 AM EDT [place] ([facility]) Name Value Range Interpretation Code Description Data Dayna rce(s) Supporting Document(s) WHITE BLOOD COUNT 4.4 3/uL Normal WHITE BLOOD COUNT [facility]) RED BLOOD COUNT 2.95 6/uL Below low normal RED BLOOD COUN T [place] ([facility]) Hemoglobin [Mass/volume] in Mixed venous blood by Oximetry 9.1 g /dl Below low normal HEMOGLOBIN [place] ([facility]) Hematocrit [Pure volume fraction] of Blood by Automated count 25 .7 % Below low normal HEMATOCRIT [facility]) MEAN CORPUSCULAR VOLUME 87.1 fl Normal MEAN CORPUSC ULAR VOLUME [place] ([facility]) MEAN CORPUSCULAR HEMOGLOBIN 30.8 pg Normal MEAN COR PUSCULAR HEMOGLOBIN [place] ([facility]) MEAN CORPUSCULAR HGB CONC 35.4 g/dl Normal MEAN CORPU SCULAR HGB CONC [place] ([facility]) RED CELL DISTRIBUTION WIDTH 13.7 % Normal RED CELL DISTRIBUTION WIDTH [place] ([facility]) PLATELET COUNT, AUTOMATED 148 3/uL Below low normal PLAT ELET COUNT, AUTOMATED [place] ([facility]) NEUTROPHILS % 71.1 % Above high normal NEUTROPHILS % [facility] LYMPH % 17.8 % Below low normal LYMPH % [place] ([facility]) MONO % 8.1 % Above high normal MONO % [place] ([facility]) EOS % 1.8 % Normal EOS % [place] ([facility]) BASO % 0.5 % Normal BASO % [place] ([facility]) IMMATURE GRANULOCYTE % 0.7 % Normal IMMATURE GRAN ULOCYTE % [place] ([facility]) NUCLEATED RED BLOOD CELL % 0.0 % Normal NUCLEATED RED BLOOD CELL % [place] ([facility]) NEUTROPHILS # 3.2 3/uL Normal NEUTROPHILS # [place] ([facility]) LYMPH # 0.8 3/uL Below low normal LYMPH # [place] ([facility]) MONO # 0.4 3/uL Normal MONO # [place] ([facility]) EOS # 0.1 3/uL Normal EOS # [place] ([facility]) BASO # 0.0 3/uL Normal BASO # [place] ([facility]) ID Date Data Source [id number] 12/18/2020 11:25:00 AM EDT [facility] ([facility]) Name Value Range Interpretation Code Description Data Dayna rce(s) Supporting Document(s) Reported Physicians See Note [facility] Note: Reported Physicians:Ordering: ATUL POP [id number], JOAN C.Attending: Alexi VOulting: Rosa OLIVAmitting: Hien VO To: Hien VO To: Mana OLIVA To: Aleyda Valdez ID Date Data Source [id number] 12/18/2020 11:25:00 AM EDT [facility] ([facility]) Name Value Range Interpretation Code Description Data Dayna rce(s) Supporting Document(s) BEDSIDE GLUCOSE 128 MG/DL Above high normal BEDSIDE GLUCO SE [facility]) ID Date Data Source [id number] 12/18/2020 06:18:00 AM EDT [place] ([facility]) Name Value Range Interpretation Code Description Data Dayna rce(s) Supporting Document(s) Reported Physicians See Note [facility] Note: Reported Physicians:Ordering: ATUL POP [id number]: Aidee VOing: Rosa OLIVAmitting: Hien VO To: Hien VO To: Mana OLIVA To: Aleyda Vladez ID Date Data Source [id number] 12/18/2020 06:18:00 AM EDT [place] ([facility]) Name Value Range Interpretation Code Description Data Dayna rce(s) Supporting Document(s) WHITE BLOOD COUNT 6.0 3/uL Normal WHITE BLOOD COUNT [facility]) RED BLOOD COUNT 2.99 6/uL Below low normal RED BLOOD COUN T [facility]) Hemoglobin [Mass/volume] in Mixed venous blood by Oximetry 9.2 g /dl Below low normal HEMOGLOBIN [facility]) Hematocrit [Pure volume fraction] of Blood by Automated count 26 .4 % Below low normal HEMATOCRIT [place] ([facility]) MEAN CORPUSCULAR VOLUME 88.3 fl Normal MEAN CORPUSC ULAR VOLUME [place] ([facility]) MEAN CORPUSCULAR HEMOGLOBIN 30.8 pg Normal MEAN COR PUSCULAR HEMOGLOBIN [facility]) MEAN CORPUSCULAR HGB CONC 34.8 g/dl Normal MEAN CORPU SCULAR HGB CONC [place] ([facility]) RED CELL DISTRIBUTION WIDTH 13.8 % Normal RED CELL DISTRIBUTION WIDTH [place] ([facility]) PLATELET COUNT, AUTOMATED 144 3/uL Below low normal PLAT ELET COUNT, AUTOMATED [place] ([facility]) NEUTROPHILS % 70.4 % Above high normal NEUTROPHILS % [facility] LYMPH % 18.1 % Below low normal LYMPH % [place] ([facility]) MONO % 8.2 % Above high normal MONO % [place] ([facility]) EOS % 2.0 % Normal EOS % [place] ([facility]) BASO % 0.3 % Normal BASO % [place] ([facility]) IMMATURE GRANULOCYTE % 1.0 % Normal IMMATURE GRAN ULOCYTE % [place] ([facility]) NUCLEATED RED BLOOD CELL % 0.0 % Normal NUCLEATED RED BLOOD CELL % [place] ([facility]) NEUTROPHILS # 4.2 3/uL Normal NEUTROPHILS # [place] ([facility]) LYMPH # 1.1 3/uL Below low normal LYMPH # [place] ([facility]) MONO # 0.5 3/uL Normal MONO # [facility] ([facility]) EOS # 0.1 3/uL Normal EOS # [place] ([facility]) BASO # 0.0 3/uL Normal BASO # [place] ([facility]) ID Date Data Source [id number] 12/18/2020 06:18:00 AM EDT [place] ([facility]) Name Value Range Interpretation Code Description Data Dayna rce(s) Supporting Document(s) Reported Physicians See Note Reported Physici ans [place] ([facility]) Note: Reported Physicians:Ordering: ATUL POP [id number], MARGARITA LeAttending: Aidee VOing: Roas OLIVAmitting: Hien VO To: Hien VO To: Mana OLIVA To: Aleyda Valdez ID Date Data Source [id number] 12/18/2020 06:18:00 AM EDT [place] ([facility]) Name Value Range Interpretation Code Description Data Dayna rce(s) Supporting Document(s) LIPASE 377 U/L Normal LIPASE [place] ([facility]) ID Date Data Source [id number] 12/18/2020 06:18:00 AM EDT [place] ([facility]) Name Value Range Interpretation Code Description Data Dayna rce(s) Supporting Document(s) Reported Physicians See Note Reported Physici ans [place] ([facility]) Note: Reported Physicians:Ordering: ATUL POP [id number], JOAN C.Attending: Aidee VOing: Rosa OLIVAmitting: Hien VO To: Hien VO To: Mana OLIVA To: Aleyda Valdez ID Date Data Source [id number] 12/18/2020 06:18:00 AM EDT [place] ([facility]) Name Value Range Interpretation Code Description Data Dayna rce(s) Supporting Document(s) GLUCOSE, FASTING 133 MG/DL Above high normal GLUCOSE, FAS TING [place] ([facility]) BLOOD UREA NITROGEN 18 MG/DL Significant change down BLO OD UREA NITROGEN [place] ([facility]) CREATININE FOR GFR 1.05 MG/DL Normal CREATININE FOR GF R [place] ([facility]) GLOMERULAR FILTRATION RATE > 60.0 Normal GLOMERULA R FILTRATION RATE [place] ([facility]) Note: Units are mL/min/1.73 m2 Chroni c Kidney Disease Staging per NKF: Stage I & II GFR >=60 Normal to Mildly Decreased Stage III GFR 30- 59 Moderately Decreased Stage IV GFR 15-29 Severely Decreased Stage V GFR <15 Very Little GFR Left ESRD GFR <15 on [employer] SODIUM LEVEL 137 MEQ/L Normal SODIUM LEVEL [place] ( [facility]) POTASSIUM SERUM 4.2 MEQ/L Normal POTASSIUM SERUM [facility]) CHLORIDE LEVEL 110 MEQ/L Above high normal CHLORIDE LEVEL [place] ([facility]) CARBON DIOXIDE LEVEL 25 MEQ/L Normal CARBON DIOXIDE LEVEL [place] ([facility]) Anion gap in Body fluid 2 MEQ/L Below low normal ANION GAP [place] ([facility]) CALCIUM LEVEL 7.9 MG/DL Below low normal CALCIUM LEVEL GR [facility] ([facility]) AST/SGOT 12 U/L Normal AST/SGOT [place] ([facility]) ALT/SGPT 19 U/L Normal ALT/SGPT [place] ([facility]) Alkaline phosphatase [Enzymatic activity/volume] in Se rum, Plasma or Blood 33 U/L Below low normal ALKALINE PHOSPHATASE [facility]) BILIRUBIN,TOTAL 0.5 MG/DL Significant change down BILIRUB IN,TOTAL [place] ([facility]) TOTAL PROTEIN 5.2 GM/DL Below low normal TOTAL PROTEIN GR [facility] ([facility]) Albumin [Mass/volume] in Blood by Bromocresol purple ( BCP) dye binding method 2.9 GM/DL Below low normal ALBUMIN [place] ([facility]) ALBUMIN/GLOBULIN RATIO 1.3 Normal ALBUMIN/GLOBU TOVA RATIO [facility]) ID Date Data Source [id number] 12/17/2020 08:30:00 PM EDT [place] ([facility]) Name Value Range Interpretation Code Description Data Dayna rce(s) Supporting Document(s) Reported Physicians See Note Reported Physici ans [place] ([facility]) Note: Reported Physicians:Ordering: ATUL POP [id number]: Alexi VOulting: Rosa OLIVAmitting: Hien VO To: Hien VO To: Mana OLIVA To: Aleyda Valdez ID Date Data Source [id number] 12/17/2020 08:30:00 PM EDT [facility] ([facility]) Name Value Range Interpretation Code Description Data Dayna rce(s) Supporting Document(s) BEDSIDE GLUCOSE 131 MG/DL Above high normal BEDSIDE GLUCO SE [facility] ([facility]) ID Date Data Source [id number] 12/17/2020 05:29:00 PM EDT [facility] ([facility]) Name Value Range Interpretation Code Description Data Dayna rce(s) Supporting Document(s) Reported Physicians See Note Reported Physici ans [place] ([facility]) Note: Reported Physicians:Ordering: ATUL POP [id number], JOAN C.Attending: Alexi VOulting: Rosa OLIVAmitting: Hien VO To: Hien VO To: Mana OLIVA To: Aleyda Valdez ID Date Data Source [id number] 12/17/2020 05:29:00 PM EDT [facility] ([facility]) Name Value Range Interpretation Code Description Data Dayna rce(s) Supporting Document(s) BEDSIDE GLUCOSE 116 MG/DL Above high normal BEDSIDE GLUCO SE [facility] ([facility]) ID Date Data Source [id number] 12/17/2020 01:47:00 PM EDT [facility] ([facility]) Name Value Range Interpretation Code Description Data Dayna rce(s) Supporting Document(s) Reported Physicians See Note [facility] Note: Reported Physicians:Ordering: ATUL POP [id number], JOAN C.Attending: Alexi VOulting: Rosa OLIVAmitting: Hien VO To: Hien VO To: Mana OLIVA To: Aleyda Valdez ID Date Data Source [id number] 12/17/2020 01:47:00 PM EDT [facility] ([facility]) Name Value Range Interpretation Code Description Data Dayna rce(s) Supporting Document(s) LACTIC ACID LEVEL, LACTATE 1.9 MMOL/L Normal LACTIC AC ID LEVEL, LACTATE [facility]) ID Date Data Source [id number] 12/17/2020 11:59:00 AM EDT [place] ([facility]) Name Value Range Interpretation Code Description Data Dayna rce(s) Supporting Document(s) Reported Physicians See Note Reported [facility] ([facility]) Note: Reported Physicians:Ordering: ATUL POP [id number]: Aidee VOing: Rosa OLIVAmitting: Hien VO To: Hien VO To: Mana OLIVA To: Aleyda Valdez ID Date Data Source [id number] 12/17/2020 11:59:00 AM EDT [place] ([facility]) Name Value Range Interpretation Code Description Data Dayna rce(s) Supporting Document(s) BEDSIDE GLUCOSE 109 MG/DL [facility] ID Date Data Source [id number] 12/17/2020 11:09:00 AM EDT [place] ([facility]) Name Value Range Interpretation Code Description Data Dayna rce(s) Supporting Document(s) Reported Physicians See Note Reported [facility] ([facility]) Note: Reported Physicians:Ordering: MARGARITA BARNETT [id number]: Aidee VOing: Rosa OLIVAmitting: Hien VO To: Hien VO To: Mana OLIVA To: Alyeda Valdez ID Date Data Source [id number] 12/17/2020 11:09:00 AM EDT [place] ([facility]) Name Value Range Interpretation Code Description Data Dayna rce(s) Supporting Document(s) OCCULT BLOOD See Note Abnormal (applies to non-numeric r esults) OCCULT BLOOD [place] ([facility]) Note: OCCULT BLOOD 1 POSI TIVE Notes [TIMP] See Note NOTES [place] ([facility]) Note: SOURCE: STOOL ID Date Data Source [id number] 12/17/2020 10:00:00 AM EDT [facility] ([facility]) Name Value Range Interpretation Code Description Data Dayna rce(s) Supporting Document(s) Reported Physicians See Note Reported [facility] ([facility]) Note: Reported Physicians:Ordering: Traci BARNETTtending: Aidee VOing: Rosa OLIVAmitting: Hien VO To: Hien VO To: Mana OLIVA To: Aleyda Valdez ID Date Data Source [id number] 12/17/2020 10:00:00 AM EDT [facility] ([facility]) Name Value Range Interpretation Code Description Data Dayna rce(s) Supporting Document(s) PACKED CELLS TRANSFUSED PRODUCT: PACKED CELLS COUNT: 2 PACKED CELLS [place] ([facility]) ID Date Data Source [id number] 12/17/2020 10:00:00 AM EDT [facility] ([facility]) Name Value Range Interpretation Code Description Data Dayna rce(s) Supporting Document(s) Reported Physicians See Note Reported [facility] ([facility]) Note: Reported Physicians:Ordering: ATUL POP [id number]: Aidee VOing: Rosa OLIVAmitting: Hien VO To: iHen VO To: Mana OLIVA To: Aleyda Valdez ID Date Data Source [id number] 12/17/2020 10:00:00 AM EDT [facility] ([facility]) Name Value Range Interpretation Code Description Data Dayna rce(s) Supporting Document(s) BLOOD TYPE O POSITIVE Normal BLOOD TYPE [facility] ([facility]) AB SCREEN (INDIRECT CHANDRAKANT)VIS NEGATIVE Normal AB SC REEN (INDIRECT CHANDRAKANT)VIS [place] ([facility]) ID Date Data Source [id number] 12/17/2020 08:36:00 AM EDT [facility] ([facility]) Name Value Range Interpretation Code Description Data Dayna rce(s) Supporting Document(s) Reported Physicians See Note Reported Physici ans [place] ([facility]) Note: Reported Physicians:Ordering: ATUL POP [id number], JOAN C.Attending: Alexi VOulting: Rosa OLIVAmitting: Hien VO To: Hien VO To: Aleyda Valdez ID Date Data Source [id number] 12/17/2020 08:36:00 AM EDT [facility] ([facility]) Name Value Range Interpretation Code Description Data Dayna rce(s) Supporting Document(s) Ferritin [Interpretation] in Blood 418 NG/ML Above high n ormal FERRITIN [place] ([facility]) ID Date Data Source [id number] 12/17/2020 08:36:00 AM EDT [place] ([facility]) Name Value Range Interpretation Code Description Data Dayna rce(s) Supporting Document(s) Reported Physicians See Note Reported Physici ans [place] ([facility]) Note: Reported Physicians:Ordering: ATUL POP [id number], JOAN C.Attending: Aidee VOing: Rosa OLIVAmitting: Hien VO To: Hien VO To: Aleyda Valdez ID Date Data Source [id number] 12/17/2020 08:36:00 AM EDT [facility] ([facility]) Name Value Range Interpretation Code Description Data Dayna rce(s) Supporting Document(s) IRON (FE) 70 UG/DL Normal IRON (FE) [place] ([facility]) TOTAL IRON BINDING CAPACITY 225 UG/DL Below low nor mal TOTAL IRON BINDING CAPACITY [place] ([facility]) PERCENT SATURATION 31.1 % Normal PERCENT SATURATIO N [place] ([facility]) ID Date Data Source [id number] 12/17/2020 08:36:00 AM EDT [facility] ([facility]) Name Value Range Interpretation Code Description Data Dayna rce(s) Supporting Document(s) Reported Physicians See Note Reported Physici ans [place] ([facility]) Note: Reported Physicians:Ordering: ATUL POP [id number], JOAN C.Attending: Aidee VOing: Rosa OLIVAmitting: Hien VO To: Hien VO To: Aleyda Valdez ID Date Data Source [id number] 12/17/2020 08:36:00 AM EDT [place] ([facility]) Name Value Range Interpretation Code Description Data Dayna rce(s) Supporting Document(s) SLIDE REVIEW Report Normal SLIDE REVIEW [place] ( [facility]) Note: Slide and/or specimen referred to Pathologist for review. Results of the review are located in the EMR Pathology module under Peripheral Smear when completed. SOURCE PERIPHERAL SMEAR Normal SOURCE [place] ([facility]) REASON FOR REVIEW RBC MORPHOLOGY Normal REASON FOR REV IEW [place] ([facility]) Notes [TIMP] See Note NOTES [place] ([facility]) Note: Reason for Review: RBC MORPHOLOGY ID Date Data Source [id number] 12/17/2020 08:36:00 AM EDT [place] ([facility]) Name Value Range Interpretation Code Description Data Dayna rce(s) Supporting Document(s) Reported Physicians See Note Reported [facility] ans [place] ([facility]) Note: Reported Physicians:Ordering: ATUL POP [id number], JOAN C.Attending: Aidee VOing: Rosa OLIVAmitting: Hien VO To: Hien VO To: Aleyda Valdez ID Date Data Source [id number] 12/17/2020 08:36:00 AM EDT [place] ([facility]) Name Value Range Interpretation Code Description Data Dayna rce(s) Supporting Document(s) Hemoglobin [Mass/volume] in Mixed venous blood by Oximetry 7.7 g /dl Below low normal HEMOGLOBIN [place] ([facility]) Hematocrit [Pure volume fraction] of Blood by Automated count 22 .0 % Below low normal HEMATOCRIT [facility]) Notes [TIMP] See Note NOTES [place] ([facility]) Note: Reason for Review: RBC MORPHOLOGY ID Date Data Source [id number] 12/17/2020 08:36:00 AM EDT [place] ([facility]) Name Value Range Interpretation Code Description Data Dayna rce(s) Supporting Document(s) Reported Physicians See Note Reported Physic ans [place] ([facility]) Note: Reported Physicians:Ordering: ATUL POP [id number], JOAN C.Attending: Alexi VOulting: Rosa OLIVAmitting: Hien VO To: Hien VO To: Aleyda Valdez ID Date Data Source [id number] 12/17/2020 08:36:00 AM EDT [place] ([facility]) Name Value Range Interpretation Code Description Data Dayna rce(s) Supporting Document(s) LACTIC ACID SEPSIS PROTOCOL 3.0 MMOL/L Above upper p anic limits LACTIC ACID SEPSIS PROTOCOL [place] ([facility]) Notes [TIMP] See Note NOTES [place] ([facility]) Note: Y/N query for Sepsis Lactate Rule: Y ID Date Data Source [id number] 12/17/2020 06:08:00 AM EDT [place] ([facility]) Name Value Range Interpretation Code Description Data Dayna rce(s) Supporting Document(s) Reported Physicians See Note Reported [facility] ([facility]) Note: Reported Physicians:Ordering: ATUL POP [id number], JOAN C.Attending: Reginaldo VOitting: Hien VO To: Hien VO To: Aleyda Valdez ID Date Data Source [id number] 12/17/2020 06:08:00 AM EDT [place] ([facility]) Name Value Range Interpretation Code Description Data Dayna rce(s) Supporting Document(s) LIPASE 329 U/L Normal LIPASE [place] ([facility]) ID Date Data Source [id number] 12/17/2020 06:08:00 AM EDT [place] ([facility] Name Value Range Interpretation Code Description Data Dayna rce(s) Supporting Document(s) Reported Physicians See Note Reported Physici ans [place] ([facility]) Note: Reported Physicians:Ordering: ATUL POP [id number]: Reginaldo VOitting: Hien VO To: Hien VO To: Aleyda Valdez ID Date Data Source [id number] 12/17/2020 06:08:00 AM EDT [place] ([facility]) Name Value Range Interpretation Code Description Data Dayna rce(s) Supporting Document(s) GLUCOSE, FASTING 141 MG/DL Above high normal GLUCOSE, FAS TING [place] ([facility]) BLOOD UREA NITROGEN 39 MG/DL Above high normal BLOOD URE A NITROGEN [place] ([facility]) CREATININE FOR GFR 0.98 MG/DL Normal CREATININE FOR GF R [place] ([facility]) GLOMERULAR FILTRATION RATE > 60.0 Normal GLOMERULA R FILTRATION RATE [place] ([facility]) Note: Units are mL/min/1.73 m2 Chroni c Kidney Disease Staging per NKF: Stage I & II GFR >=60 Normal to Mildly Decreased Stage III GFR 30- 59 Moderately Decreased Stage IV GFR 15-29 Severely Decreased Stage V GFR <15 Very Little GFR Left ESRD GFR <15 on [employer] SODIUM LEVEL 140 MEQ/L Significant change down SODIUM LEV EL [place] ([facility]) POTASSIUM SERUM 4.4 MEQ/L Normal POTASSIUM SERUM [facility] ([facility]) CARBON DIOXIDE LEVEL 22 MEQ/L Normal CARBON DIOXIDE LEVEL [facility]) CHLORIDE LEVEL 111 MEQ/L Above high normal CHLORIDE LEVEL [place] ([facility]) Anion gap in Body fluid 7 MEQ/L Below low normal ANION GAP [place] ([facility]) CALCIUM LEVEL 7.7 MG/DL Below low normal [facility] AST/SGOT 10 U/L Normal AST/SGOT [place] ([facility]) ALT/SGPT 18 U/L Normal ALT/SGPT [place] ([facility]) Alkaline phosphatase [Enzymatic activity/volume] in Se rum, Plasma or Blood 29 U/L Below low normal ALKALINE PHOSPHATASE [facility]) BILIRUBIN,TOTAL 0.3 MG/DL Normal [facility],TOTAL [facility] TOTAL PROTEIN 4.9 GM/DL Below low normal [facility] Albumin [Mass/volume] in Blood by Bromocresol purple ( BCP) dye binding method 2.7 GM/DL Below low normal ALBUMIN [facility]) ALBUMIN/GLOBULIN RATIO 1.2 Normal ALBUMIN/GLOBU TOVA RATIO [facility]) ID Date Data Source [id number] 12/17/2020 06:08:00 AM EDT [facility]) Name Value Range Interpretation Code Description Data Dayna rce(s) Supporting Document(s) Reported Physicians See Note Reported Physici ans [facility]) Note: Reported Physicians:Ordering: ATUL POP [id number]: Reginaldo VOitting: Hien VO To: Hien VO To: Aleyda Valdez ID Date Data Source [id number] 12/17/2020 06:08:00 AM EDT [facility]) Name Value Range Interpretation Code Description Data Dayna rce(s) Supporting Document(s) WHITE BLOOD COUNT 6.0 3/uL Normal WHITE BLOOD COUNT [facility]) RED BLOOD COUNT 2.65 6/uL Below low normal RED BLOOD COUN T [facility]) Hemoglobin [Mass/volume] in Mixed venous blood by Oximetry 7.8 g/dl HEMOGLOBIN [facility]) Hematocrit [Pure volume fraction] of Blood by Automated count 23 .0 % Below low normal HEMATOCRIT [facility]) MEAN CORPUSCULAR VOLUME 86.8 fl Normal MEAN CORPUSC ULAR VOLUME [facility]) MEAN CORPUSCULAR HEMOGLOBIN 29.4 pg Normal MEAN COR PUSCULAR HEMOGLOBIN [facility]) MEAN CORPUSCULAR HGB CONC 33.9 g/dl Normal MEAN CORPU SCULAR HGB CONC [place] ([facility]) RED CELL DISTRIBUTION WIDTH 13.8 % Normal RED CELL DISTRIBUTION WIDTH [place] ([facility]) PLATELET COUNT, AUTOMATED 177 3/uL Normal PLATELET C OUNT, AUTOMATED [place] ([facility]) NEUTROPHILS % 71.0 % Above high normal NEUTROPHILS % [facility] LYMPH % 19.5 % Below low normal LYMPH % [place] ([facility]) MONO % 7.4 % Normal MONO % [place] ([facility]) EOS % 1.0 % Normal EOS % [place] ([facility]) BASO % 0.3 % Normal BASO % [place] ([facility]) IMMATURE GRANULOCYTE % 0.8 % Normal IMMATURE GRAN ULOCYTE % [place] ([facility]) NUCLEATED RED BLOOD CELL % 0.0 % Normal NUCLEATED RED BLOOD CELL % [place] ([facility]) NEUTROPHILS # 4.2 3/uL Normal NEUTROPHILS # [place] ([facility]) LYMPH # 1.2 3/uL Below low normal LYMPH # [facility] ([facility]) MONO # 0.4 3/uL Normal MONO # [facility] ([facility]) EOS # 0.1 3/uL Normal EOS # [facility] ([facility]) BASO # 0.0 3/uL Normal BASO # [place] ([facility]) ID Date Data Source [id number] 12/16/2020 08:25:00 PM EDT [place] ([facility]) Name Value Range Interpretation Code Description Data Dayna rce(s) Supporting Document(s) Reported Physicians See Note Reported Physici ans [place] ([facility]) Note: Reported Physicians:Ordering: ATUL POP [id number]: Reginaldo VOitting: Hien VO To: Hien VO To: Aleyda Valdez ID Date Data Source [id number] 12/16/2020 08:25:00 PM EDT [place] ([facility]) Name Value Range Interpretation Code Description Data Dayna rce(s) Supporting Document(s) BEDSIDE GLUCOSE 169 MG/DL Above high normal BEDSIDE GLUCO SE [facility] ([facility]) Note: Nurse Notified ID Date Data Source [id number] 12/16/2020 06:35:00 PM EDT [facility] ([facility]) Name Value Range Interpretation Code Description Data Dayna rce(s) Supporting Document(s) Reported Physicians See Note Reported Physic ans [place] ([facility]) Note: Reported Physicians:Ordering: ATUL POP [id number], JOAN C.Attending: Reginaldo VOitting: Hien VO To: Hien VO To: Aleyda Valdez ID Date Data Source [id number] 12/16/2020 06:35:00 PM EDT [facility] ([facility]) Name Value Range Interpretation Code Description Data Dayna rce(s) Supporting Document(s) BEDSIDE GLUCOSE 158 MG/DL Above high normal BEDSIDE GLUCO SE [place] ([facility]) ID Date Data Source [id number] 12/16/2020 05:04:00 PM EDT [facility] ([facility]) Name Value Range Interpretation Code Description Data Dayna rce(s) Supporting Document(s) Reported Physicians See Note Reported [facility] ([facility]) Note: Reported Physicians:Ordering: ATUL POP [id number], JOAN C.Attending: Reginaldo VOitting: Hien VO To: Hien VO To: Aleyda Valdez ID Date Data Source [id number] 12/16/2020 05:04:00 PM EDT [facility] ([facility]) Name Value Range Interpretation Code Description Data Dayna rce(s) Supporting Document(s) Myoglobin [Presence] in 24 hour Urine 103 NG/ML Normal MYOGLOBIN [place] ([facility]) ID Date Data Source [id number] 12/16/2020 05:04:00 PM EDT [facility] ([facility]) Name Value Range Interpretation Code Description Data Dayna rce(s) Supporting Document(s) Reported Physicians See Note Reported Physici ans [place] ([facility]) Note: Reported Physicians:Ordering: ATUL POP [id number], JOAN C.Attending: Reginaldo VOitting: Hien VO To: Hien VO To: Aleyda Valdez ID Date Data Source [id number] 12/16/2020 05:04:00 PM EDT [place] ([facility]) Name Value Range Interpretation Code Description Data Dayna rce(s) Supporting Document(s) CPK CREATINE PHOSPHOKINASE 63 U/L Normal CPK CREAT INE PHOSPHOKINASE [facility]) CK-MB VALUE MASS 4.1 NG/ML Above high normal CK-MB VALUE MASS [place] ([facility]) MB/CK RELATIVE INDEX 6.51 Above high normal MB/CK RE LATIVE INDEX [place] ([facility]) Note: DIAGNOSIS CRITERIA MMB ng/ml Relative Index (RI) NON-AMI < or = 5 N/A POSEY ZONE > 5 < or = 4 AMI > 5 > 4 TROPONIN I 0.28 NG/ML Above high normal TROPONIN I [facility]) Note: Troponin I Reference Interval for Siemens Stringer LOCI: 99th Percentile= 0.00-0.045 ng/ml Risk Stratification: <= 0.10 ng/ml Decreased Risk for Adverse Clinical Events. 0.10-1.50 ng/ml Increased Risk for Adverse Clinical Events. Evaluation of additional criterion and/or repeat testing in 2-6 hours is suggested to rule out myocardial damage. >= 1.50 ng/ml Indicative of Myocardial Injury. ID Date Data Source [id number] 12/16/2020 05:04:00 PM EDT [place] ([facility]) Name Value Range Interpretation Code Description Data Dayna rce(s) Supporting Document(s) Reported Physicians See Note Reported Physic ans [place] ([facility]) Note: Reported Physicians:Ordering: ATUL POP [id number], JOAN C.Attending: Reginaldo VOitting: Hien VO To: Hien VO To: Aleyda Valdez ID Date Data Source [id number] 12/16/2020 05:04:00 PM EDT [place] ([facility]) Name Value Range Interpretation Code Description Data Dayna rce(s) Supporting Document(s) NT-PRO BNP 518 PG/ML Above high normal NT-PRO BNP [facility]) ID Date Data Source [id number] 12/16/2020 05:04:00 PM EDT [place] ([facility]) Name Value Range Interpretation Code Description Data Dayna rce(s) Supporting Document(s) Reported Physicians See Note Reported Physici ans [place] ([facility]) Note: Reported Physicians:Ordering: ATUL [id number] RodrigesAttending: Reginaldo VOitting: Hien VO To: Hien VO To: Aleyda Valdez ID Date Data Source [id number] 12/16/2020 05:04:00 PM EDT [place] ([facility]) Name Value Range Interpretation Code Description Data Dayna rce(s) Supporting Document(s) Procalcitonin [Mass/volume] in Serum or Plasma by Immunoassay 0.13 Normal PROCALCITONIN [facility] Note: SEPSIS INTERPRETATION OF RESULTS <0.5 ng/ml [...] are strongly encouraged. ID Date Data Source [id number] 12/16/2020 05:04:00 PM EDT [place] ([facility]) Name Value Range Interpretation Code Description Data Dayna rce(s) Supporting Document(s) Reported Physicians See Note Reported Physici ans [place] ([facility]) Note: Reported Physicians:Ordering: ATUL POP [id number], JOAN C.Attending: Reginaldo VOitting: Hien VO To: Hien VO To: Aleyda Valdez ID Date Data Source [id number] 12/16/2020 05:04:00 PM EDT [place] ([facility]) Name Value Range Interpretation Code Description Data Dayna rce(s) Supporting Document(s) C REACTIVE PROTEIN QUANTITATIV 3.51 MG/DL Above high normal C REACTIVE PROTEIN QUANTITATIV [place] ([facility]) ID Date Data Source [id number] 12/16/2020 05:04:00 PM EDT [place] ([facility]) Name Value Range Interpretation Code Description Data Dayna rce(s) Supporting Document(s) Reported Physicians See Note Reported Physici ans [place] ([facility]) Note: Reported Physicians:Ordering: ATUL POP [id number] RodrigesAttending: Reginaldo VOitting: Hien VO To: Hien VO To: Aleyda Valdez ID Date Data Source [id number] 12/16/2020 05:04:00 PM EDT [place] ([facility]) Name Value Range Interpretation Code Description Data Dayna rce(s) Supporting Document(s) LACTIC ACID SEPSIS PROTOCOL 1.6 MMOL/L Normal LACTIC A ROWENA SEPSIS PROTOCOL [place] ([facility]) Notes [TIMP] See Note NOTES [place] ([facility]) Note: Y/N query for Sepsis Lactate Rule: Y ID Date Data Source [id number] 12/16/2020 05:04:00 PM EDT [place] ([facility]) Name Value Range Interpretation Code Description Data Dayna rce(s) Supporting Document(s) Reported Physicians See Note Reported Physic ans [place] ([facility]) Note: Reported Physicians:Ordering: ATUL POP [id number], JOAN C.Attending: Reginaldo VOitting: Hien VO To: Hien VO To: Aleyda Valdez ID Date Data Source [id number] 12/16/2020 05:04:00 PM EDT [place] ([facility]) Name Value Range Interpretation Code Description Data Dayna rce(s) Supporting Document(s) Erythrocyte sedimentation rate by [place] method 45 mm/hr Above high normal ERYTHROCYTE SEDIMENTATION RATE [facility]) ID Date Data Source [id number] 12/16/2020 02:41:00 PM EDT [place] ([facility]) Name Value Range Interpretation Code Description Data Dayna rce(s) Supporting Document(s) Reported Physicians See Note Reported Physici ans [place] ([facility]) Note: Reported Physicians:Ordering: Harman Baum [id number], a MDAttending: Reginaldo VOitting: Hien VO To: Hien VO To: Maj MonalisaaCopy To: Aleyda Valdez ID Date Data Source [id number] 12/16/2020 02:41:00 PM EDT [place] ([facility]) Name Value Range Interpretation Code Description Data Dayna rce(s) Supporting Document(s) LACTIC ACID LEVEL, LACTATE 1.7 MMOL/L Normal LACTIC AC ID LEVEL, LACTATE [facility]) ID Date Data Source [id number] 12/16/2020 11:30:00 AM EDT [place] ([facility]) Name Value Range Interpretation Code Description Data Dayna rce(s) Supporting Document(s) Reported Physicians See Note Reported Physici ans [place] ([facility]) Note: Reported Physicians:Ordering: Harman Baum [id number], Maja MDAttending: Lundborg-Posey, MajaCopy To: Lundborsabina-Kalpesh, MajaCopy To: Aleyda Valdez ID Date Data Source [id number] 12/16/2020 11:30:00 AM EDT [place] ([facility]) Name Value Range Interpretation Code Description Data Dayna rce(s) Supporting Document(s) CPK CREATINE PHOSPHOKINASE 61 U/L Normal CPK CREAT INE PHOSPHOKINASE [place] ([facility]) CK-MB VALUE MASS 3.1 NG/ML Normal [facility] MB/CK RELATIVE INDEX 5.08 Above high normal MB/CK RE LATIVE INDEX [place] ([facility]) Note: DIAGNOSIS CRITERIA MMB ng/ml Relative Index (RI) NON-AMI < or = 5 N/A POSEY ZONE > 5 < or = 4 AMI > 5 > 4 TROPONIN I 0.33 NG/ML TROPONIN I [facility]) Note: Troponin I Reference Interval for Siemens radRounds [facility]iology Network LOCI: 99th Percentile= 0.00-0.045 ng/ml Risk Stratification: <= 0.10 ng/ml Decreased Risk for Adverse Clinical Events. 0.10-1.50 ng/ml Increased Risk for Adverse Clinical Events. Evaluation of additional criterion and/or repeat testing in 2-6 hours is suggested to rule out myocardial damage. >= 1.50 ng/ml Indicative of Myocardial Injury. ID Date Data Source [id number] 12/16/2020 09:45:00 AM EDT [place] ([facility]) Name Value Range Interpretation Code Description Data Dayna rce(s) Supporting Document(s) Reported Physicians See Note Reported Physici ans [place] ([facility]) Note: Reported Physicians:Ordering: Volodymyr Matos [id number]: Alexi VOulting: Rosa OLIVAmitting: Hien VO To: Hien VO To: Alfredito Greenwood To: Aleyda Valdez ID Date Data Source [id number] 12/16/2020 09:45:00 AM EDT [place] ([facility]) Name Value Range Interpretation Code Description Data Dayna rce(s) Supporting Document(s) GATS CULTURE (NEG STREP SCR) See Note Normal GATS CU LTURE (NEG STREP SCR) [place] ([facility]) Note: FULL REPORT IN LAB NOTES (eCW and Medent).NEGATIVE FOR STREP PYOGENES (GROUP A) Notes [TIMP] See Note NOTES [place] ([facility]) Note: Is patient on Antibiotics? N SOUR CE: THROAT ID Date Data Source [id number] 12/16/2020 08:36:00 AM EDT [place] ([facility]) Name Value Range Interpretation Code Description Data Dayna rce(s) Supporting Document(s) Reported Physicians See Note Reported Physici ans [place] ([facility]) Note: Reported Physicians:Ordering: Harman Diasdonovan [id number], Volodymyr MDAttending: Krystyna MajaCopy To: Krystyna MajaCopy To: Aleyda Valdez ID Date Data Source [id number] 12/16/2020 08:36:00 AM EDT [facility] ([facility]) Name Value Range Interpretation Code Description Data Dayna rce(s) Supporting Document(s) NELDA STREP A NEGATIVE Normal NELDA STREP A [place] ([facility]) ID Date Data Source [id number] 12/16/2020 08:33:00 AM EDT [place] ([facility]) Name Value Range Interpretation Code Description Data Dayna rce(s) Supporting Document(s) Reported Physicians See Note Reported [facility] ([facility]) Note: Reported Physicians:Ordering: Harman Baum [id number], Volodymyr MDAttending: Maj KrystynaaCopy To: Maj KrystynaaCopy To: Aleyda Valdez ID Date Data Source [id number] 12/16/2020 08:33:00 AM EDT [facility] ([facility]) Name Value Range Interpretation Code Description Data Dayna rce(s) Supporting Document(s) BEDSIDE GLUCOSE 196 MG/DL Above high normal BEDSIDE GLUCO SE [place] ([facility]) ID Date Data Source [id number] 12/16/2020 08:18:00 AM EDT [facility] Name Value Range Interpretation Code Description Data Dayna rce(s) Supporting Document(s) SARS-CoV-2 (COVID 19) NEGATIVE - SARS-CoV-2 (COVID19) [facility] This lab was ordered by [facility] a nd reported by [facility] [place]. ID Date Data Source [id number] 12/16/2020 08:18:00 AM EDT [facility] ([facility]) Name Value Range Interpretation Code Description Data Dayna rce(s) Supporting Document(s) Reported Physicians See Note Reported [facility] ([facility]) Note: Reported Physicians:Ordering: Harman Baum [id number] MDAttending: Alfredito Greenwood To: Alfredito Greenwood To: Aleyda Valdez ID Date Data Source [id number] 12/16/2020 08:18:00 AM EDT [place] ([facility]) Name Value Range Interpretation Code Description Data Dayna rce(s) Supporting Document(s) LACTIC ACID SEPSIS PROTOCOL 2.5 MMOL/L Above upper p anic limits LACTIC ACID SEPSIS PROTOCOL [place] ([facility]) Notes [TIMP] See Note NOTES [place] ([facility]) Note: Y/N query for Sepsis Lactate Rule: Y ID Date Data Source [id number] 12/16/2020 08:18:00 AM EDT [place] ([facility]) Name Value Range Interpretation Code Description Data Dayna rce(s) Supporting Document(s) Reported Physicians See Note Reported [facility] ([facility]) Note: Reported Physicians:Ordering: Volodymyr Matos [phone]: Alfredito Greenwood To: Alfredito Greenwood To: Aleyda Valdez ID Date Data Source [id number] 12/16/2020 08:18:00 AM EDT [place] ([facility]) Name Value Range Interpretation Code Description Data Dayna rce(s) Supporting Document(s) RESPIRATORY PANEL See Note RESPIRATORY PANEL [place] ([facility]) Note: This respiratory PCR panel detects Influenza A H1, H3 [id number] H1 viruses, Influenza B virus, Respiratory Syncytial Virus,Human metapneumovirus, Parainfluenza virus 1, 2, 3 and 4, Adenovirus,Rhinovirus/Enterovirus, Coronavirus HKU1, NL63, OC43, 229E [id number] (COVID 19), Bordetella pertussis, Bordetella parapertussis,Mycoplasma pneumoniae and Chlamydia pneumoniae.NEGATIVE by MULTIPLEXED NUCLEIC ACID [id number] (COVID 19) NEGATIVE - SARS-CoV-2 (COVID19) Notes [TIMP] See Note NOTES [place] ([facility]) Note: Source: [id number] ID Date Data Source [id number] 12/16/2020 08:17:00 AM EDT [place] ([facility]) Name Value Range Interpretation Code Description Data Dayna rce(s) Supporting Document(s) Reported Physicians See Note Reported Physici ans [place] ([facility]) Note: Reported Physicians:Ordering: Harman Baum [id number] MDAttending: Lundsarahg-Posey, MajaCopy To: Krystyna MajaCopy To: Aleyda Valdez ID Date Data Source [id number] 12/16/2020 08:17:00 AM EDT [place] ([facility]) Name Value Range Interpretation Code Description Data Dayna rce(s) Supporting Document(s) CPK CREATINE PHOSPHOKINASE 54 U/L Normal CPK CREAT INE PHOSPHOKINASE [place] ([facility]) CK-MB VALUE MASS 2.0 NG/ML Normal CK[facility]MB [facility] MB/CK RELATIVE INDEX 3.70 Normal MB/CK RELATIVE INDEX [place] ([facility]) Note: DIAGNOSIS CRITERIA MMB ng/ml Relative Index (RI) NON-AMI < or = 5 N/A POSEY ZONE > 5 < or = 4 AMI > 5 > 4 TROPONIN I 0.20 NG/ML Above high normal TROPONIN I [facility]) Note: Troponin I Reference Interval for Siemens Stringer LOCI: 99th Percentile= 0.00-0.045 ng/ml Risk Stratification: <= 0.10 ng/ml Decreased Risk for Adverse Clinical Events. 0.10-1.50 ng/ml Increased Risk for Adverse Clinical Events. Evaluation of additional criterion and/or repeat testing in 2-6 hours is suggested to rule out myocardial damage. >= 1.50 ng/ml Indicative of Myocardial Injury. ID Date Data Source [id number] 12/16/2020 08:17:00 AM EDT [place] ([facility]) Name Value Range Interpretation Code Description Data Dayna rce(s) Supporting Document(s) Reported Physicians See Note Reported Physici ans [place] ([facility]) Note: Reported Physicians:Ordering: Harman Baum [phone], Maja MDAttending: Alfredito Greenwood To: Alfredito Greenwood To: Aleyda Valdez ID Date Data Source [id number] 12/16/2020 08:17:00 AM EDT [place] ([facility]) Name Value Range Interpretation Code Description Data Dayna rce(s) Supporting Document(s) GLUCOSE, FASTING 196 MG/DL Above high normal GLUCOSE, FAS TING [place] ([facility]) BLOOD UREA NITROGEN 49 MG/DL Above high normal BLOOD URE A NITROGEN [place] ([facility]) CREATININE FOR GFR 1.12 MG/DL Normal CREATININE FOR GF R [place] ([facility]) GLOMERULAR FILTRATION RATE > 60.0 Normal GLOMERULA R FILTRATION RATE [place] ([facility]) Note: Units are mL/min/1.73 m2 Chroni c Kidney Disease Staging per NKF: Stage I & II GFR >=60 Normal to Mildly Decreased Stage III GFR 30- 59 Moderately Decreased Stage IV GFR 15-29 Severely Decreased Stage V GFR <15 Very Little GFR Left ESRD GFR <15 on [employer] SODIUM LEVEL 133 MEQ/L Below low normal SODIUM LEVEL [facility] ([facility]) POTASSIUM SERUM 4.6 MEQ/L Normal POTASSIUM SERUM [facility]) CHLORIDE LEVEL 104 MEQ/L Normal CHLORIDE LEVEL [facility]) CARBON DIOXIDE LEVEL 20 MEQ/L Below low normal CARBON DI OXIDE LEVEL [facility]) Anion gap in Body fluid 9 MEQ/L Normal ANION GAP [facility] CALCIUM LEVEL 8.2 MG/DL Below low normal CALCIUM LEVEL GR [facility] ([facility]) ID Date Data Source [id number] 12/16/2020 08:17:00 AM EDT [place] ([facility]) Name Value Range Interpretation Code Description Data Dayna rce(s) Supporting Document(s) Reported Physicians See Note Reported Physici ans [place] ([facility]) Note: Reported Physicians:Ordering: Harman Baum [id number], Maja MDAttending: Alfredito Greenwood To: Krystyna MajaCopy To: Aleyda Valdez ID Date Data Source [id number] 12/16/2020 08:17:00 AM EDT [place] ([facility]) Name Value Range Interpretation Code Description Data Dayna rce(s) Supporting Document(s) NT-PRO BNP 133 PG/ML Normal NT-PRO BNP [place] ([facility]) ID Date Data Source [id number] 12/16/2020 08:17:00 AM EDT [facility] ([facility]) Name Value Range Interpretation Code Description Data Dayna rce(s) Supporting Document(s) Reported Physicians See Note Reported Physici ans [place] ([facility]) Note: Reported Physicians:Ordering: Harman Baum [id number] MDAttending: Alfredito Greenwood To: Alfredito Greenwood To: Aleyda Valdez ID Date Data Source [id number] 12/16/2020 08:17:00 AM EDT [place] ([facility]) Name Value Range Interpretation Code Description Data Dayna rce(s) Supporting Document(s) AST/SGOT 8 U/L Normal AST/SGOT [place] ([facility]) ALT/SGPT 21 U/L Normal ALT/SGPT [place] ([facility]) BILIRUBIN,TOTAL 0.3 MG/DL Normal BILIRUBIN,TOTAL [facility] ([facility]) Alkaline phosphatase [Enzymatic activity/volume] in Se rum, Plasma or Blood 41 U/L Below low normal ALKALINE PHOSPHATASE [place] ( [facility]) BILIRUBIN,DIRECT 0.1 MG/DL Normal BILIRUBIN,DIRECT GR [facility] ([facility]) TOTAL PROTEIN 6.0 GM/DL Below low normal TOTAL PROTEIN [facility] ([facility]) Albumin [Mass/volume] in Blood by Bromocresol purple ( BCP) dye binding method 3.1 GM/DL Below low normal ALBUMIN [place] ([facility]) ALBUMIN/GLOBULIN RATIO 1.1 Normal ALBUMIN/GLOBU TOVA RATIO [facility]) ID Date Data Source [id number] 12/16/2020 08:17:00 AM EDT [place] ([facility]) Name Value Range Interpretation Code Description Data Dayna rce(s) Supporting Document(s) Reported Physicians See Note Reported Physici ans [place] ([facility]) Note: Reported Physicians:Ordering: Harman Diasdonovan [id number], a MDAttending: Alfredito Greenwood To: Maj KrystynaaCojeff To: Aleyda Valdez ID Date Data Source [id number] 12/16/2020 08:17:00 AM EDT [place] ([facility]) Name Value Range Interpretation Code Description Data Dayna rce(s) Supporting Document(s) THYROXINE (T4) 8.6 UG/DL Normal THYROXINE (T4) [facility] ID Date Data Source [id number] 12/16/2020 08:17:00 AM EDT [place] ([facility]) Name Value Range Interpretation Code Description Data Dayna rce(s) Supporting Document(s) Reported Physicians See Note Reported Physic ans [place] ([facility]) Note: Reported Physicians:Ordering: Harman Baum [id number], Maja MDAttending: Alfredito Greenwood To: Maj KrystynaaCopy To: Aleyda Valdez ID Date Data Source [id number] 12/16/2020 08:17:00 AM EDT [place] ([facility]) Name Value Range Interpretation Code Description Data Dayna rce(s) Supporting Document(s) RED BLOOD COUNT 3.75 6/uL Below low normal RED BLOOD COUN T [facility]) WHITE BLOOD COUNT 8.9 3/uL Normal WHITE BLOOD COUNT [place] ([facility]) Hemoglobin [Mass/volume] in Mixed venous blood by Oximetry 11.0 g/dl Below low normal HEMOGLOBIN [facility]) Hematocrit [Pure volume fraction] of Blood by Automated count 32 .1 % Below low normal HEMATOCRIT [facility]) MEAN CORPUSCULAR VOLUME 85.6 fl Normal [facility]PUSC [facility] MEAN CORPUSCULAR HEMOGLOBIN 29.3 pg Normal MEAN COR PUSCULAR HEMOGLOBIN [place] ([facility]) MEAN CORPUSCULAR HGB CONC 34.3 g/dl Normal MEAN CORPU SCULAR HGB CONC [place] ([facility]) PLATELET COUNT, AUTOMATED 231 3/uL Normal PLATELET C OUNT, AUTOMATED [place] ([facility]) RED CELL DISTRIBUTION WIDTH 13.2 % Normal RED CELL DISTRIBUTION WIDTH [place] ([facility]) NEUTROPHILS % 80.3 % Above high normal NEUTROPHILS % [facility] LYMPH % 9.7 % Below low normal LYMPH % [place] ([facility]) MONO % 8.4 % Above high normal MONO % [place] ([facility]) BASO % 0.3 % Normal BASO % [place] ([facility]) EOS % 0.2 % Normal EOS % [place] ([facility]) IMMATURE GRANULOCYTE % 1.1 % Normal IMMATURE GRAN ULOCYTE % [place] ([facility]) NUCLEATED RED BLOOD CELL % 0.0 % Normal NUCLEATED RED BLOOD CELL % [place] ([facility]) NEUTROPHILS # 7.2 3/uL Normal NEUTROPHILS # [facility] ([facility]) LYMPH # 0.9 3/uL Below low normal LYMPH # [facility] ([facility]) MONO # 0.8 3/uL Normal MONO # [place] ([facility]) EOS # 0.0 3/uL Normal EOS # [place] ([facility]) BASO # 0.0 3/uL Normal BASO # [place] ([facility]) ID Date Data Source [id number] 12/16/2020 08:17:00 AM EDT [place] ([facility]) Name Value Range Interpretation Code Description Data Dayna rce(s) Supporting Document(s) Reported Physicians See Note Reported Physici ans [place] ([facility]) Note: Reported Physicians:Ordering: Harman Baum [phone]: Alfredito Greenwood To: Alfredito Greenwood To: Aleyda Valdez ID Date Data Source [id number] 12/16/2020 08:17:00 AM EDT [place] ([facility]) Name Value Range Interpretation Code Description Data Dayna rce(s) Supporting Document(s) THYROID STIMULATING HORMONE 0.728 uIU/ML Normal THYROI D STIMULATING HORMONE [place] ([facility]) ID Date Data Source [id number] 12/16/2020 08:17:00 AM EDT [place] ([facility]) Name Value Range Interpretation Code Description Data Dayna rce(s) Supporting Document(s) Reported Physicians See Note Reported Physici ans [place] ([facility]) Note: Reported Physicians:Ordering: Harman Baum [id number]: Alfredito Greenwood To: Alfredito Greenwood To: Aleyda Valdez ID Date Data Source [id number] 12/16/2020 08:17:00 AM EDT [place] ([facility]) Name Value Range Interpretation Code Description Data Dayna rce(s) Supporting Document(s) LIPASE 405 U/L Above high normal LIPASE [facility] ([facility]) ID Date Data Source [id number] 12/13/2020 07:59:00 AM EDT [facility] 1 OrderSheet [facility] Emergency Department [address] [place] [address] Phone #: ext- [phone] 12/13/2020 07:56 Patient: TERESA WICK Sex: M [...] rce(s) Supporting Document(s) ID Date Data Source [id number] 12/13/2020 07:59:00 AM EDT [facility] 1 Medication Reconciliation Report [facility] Emergency Department [address] [place] [address] Phone #: ext- [phone] 12/13/2020 07:56 Patient: TERESA WICK Sex: M : 1940 Age: 80yWeight: 108.8 kgHeight/Length: 67 in.BMI: 37.6ALLERGIES: No Known Drug AllergyThe patient's Home Medications are listed below:CONTINUE TAKING THE FOLLOWING MEDICATIONS: Aspirin EC Oral (81 mg) 1 tablet, daily, last dose: 018984 1526 Atenolol Oral (50 mg) 1 tablet, 2x a day, last dose: 400153 7731 Esomeprazole Magnesium Oral (40 mg) 1 capsule, daily, last dose: 677259 5848 Fenofibrate Oral (48 mg) 1 tablet, bedtime, last dose: 460045 0198 Hydrochlorothiazide Oral (25 mg) 1 tablet, daily, last dose: 908537 2149 Losartan Potassium Oral (50 mg) 1 tablet, daily, last dose: 5070226 Potassium Chloride ER Oral (20 meq) 1 tablet, bedtime, last dose: 5070226 Travatan Z Ophthalmic (0.004 %) 1 drop, last dose: 5070226 Vitamin D Oral 49111 units, every two weeksThe source(s) of the original Home Medication information:Not obtained.The following Medications were given to the patient in the Emergency Department:None.The following Medications were prescribed to the patient:None. Name Value Range Interpretation Code Description Data Dayna rce(s) Supporting Document(s) ID Date Data Source [id number] 12/13/2020 07:59:00 AM EDT [facility] 1 Medication Administration Record [facility] Emergency Department [address] [place] [address] Phone #: ext- [phone] 12/13/2020 07:56 Patient: TERESA WICK Sex: M : 1940 Age: 80yWeight: 108.8 kgHeight/Length: 67 inBMI: 37.6ALLERGIES: No Known Drug AllergyDate/Time Medication Administered Medication Ordered Name Value Range Interpretation Code Description Data Dayna e(s) Supporting Document(s) ID Date Data Source [id number] 12/13/2020 07:59:00 AM EDT [facility] 1 General Instructions [facility] Emergency Department [address] [place] [address] Bernadette ne #: ext- [phone] 12/13/2020 07:56 Patient: TERESA [...] 1 drop, Last: 5070226.Vitamin D Oral : 81165 units every two weeks.Follow- up:Follow up with your healthcare provider Tuesday. Reason for referral: evaluation. Summary of careprovided to patient via paper. Blood pressure screening was not performed during this visit because thepatient has an active diagnosis of hypertension. The patient should follow up with a primary care providerfor blood pressure management. ADDITIONAL INFORMATIONAcute Viral Pharyngitis (Sore Throat) 2 General Instructions [facility] Emergency Department [address] [place] [address] Phone #: ext- [phone] 12/13/2020 07:56 Patient: [...] throat pain. Dissolve 02/22 3 General Instructions [facility] Emergency Department [address] [place] [address] Phone #: ext- [phone] 12/13/2020 07:56 Patient: [...] any of these occur: 4 General Instructions [facility] Emergency Department [address] [place] [address] Phone #: ext- [phone] 12/13/2020 07:56 Patient: [...] 101F (38.3C) or higher 5 General Instructions [facility] Emergency Department [address] [place] [address] Phone #: ext- [phone] 12/13/2020 07:56 Patient: [...] in a child age 2 or older [id number] [employer]. [address] [place] [address], [place] [address]. All rights reserved. This information is not intended as asubstitute for professional medical care. Always follow your healthcare professional's instructions. You have been given the following additional information: Pharyngitis, Viral(Electronically signed by Rodriguez Fischer 12/13/2020 13:44) Name Value Range Interpretation Code Description Data Dayna rce(s) Supporting Document(s) ID Date Data Source [id number] 12/13/2020 07:59:00 AM EDT [facility] 1 Clinical Report - Nurses [facility] Emergency Department [address] [place] [address] Phone #: ext- [phone] 12/13/2020 07:56 Patient: TERESA WICK Sex: M : 1940 Age: 80yTRIAGEArrived by private vehicle. Historian: patient. Accompanied by family.Acuity: LEVEL 4.Chief Complaint: SORE THROAT and (swollen glands).Onset. (1 weeks ago). 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 (629).SEPSIS SCREEN: SIRS SCREEN NEGATIVE. SEPSIS [...] 81 mg) 1 tablet, daily, last dose 002982 1431. Atenolol Oral (Tablet 50 mg) 1 tablet, 2x a day, last dose 127317 3957. Esomeprazole Magnesium Oral (Capsule Delayed Release 40 mg) 1 capsule, daily, last dose 2104847473. Fenofibrate Oral (Tablet 48 mg) 1 tablet, bedtime, last dose 646401 6148. Hydrochlorothiazide Oral (Tablet 25 mg) 1 tablet, daily, last dose 407945 6102. Losartan Potassium Oral (Tablet 50 mg) 1 tablet, daily, last dose 219480 0952. Potassium Chloride ER Oral (Tablet Extended Release 20 meq) 1 tablet, bedtime, last dose [id number]. --08:01 12/13/20 Ming Wilcox RN Travatan Z Ophthalmic (Solution 0.004 %) 1 drop, last dose 275911 6623. Vitamin D Oral 91366 units, every two weeks. --08:01 12/13/20 Ming Wilcox RN.AllergiesNo Known Drug Allergy. --08:01 12/13/20 Ming Wilcox RN. 2 Clinical Report - Nurses [facility] Emergency Department [address] [place] [address] Phone #: ext- [phone] 12/13/2020 07:56 Patient: [...] bed on. 3 Clinical Report - Nurses [facility] Emergency Department [address] [place] [address] Phone #: ext- [phone] 12/13/2020 07:56 [id number] Sex[facility] M : 1940 Age: 80y Patient ready for evaluation- ED physician notified. --08:09 12/13/20 Ming Wilcox RN threat monitoring analyst placed on patient; cardiac cath technician- Lead II; monitor alarms on. --08:16 12/13/20 Ming Wilcox RN 09:00 12/13/20. BP: 148/73. MAP: 98. HR: 70. RR: 18. O2 saturation: 98%. --10:09 12/13/20 [place] Amiigo, [employer] Tech1.DISPOSITION / DISCHARGE 10:09 12/13/20. BP: 155/78. HR: 68. RR: 19. O2 saturation: 98%. Temp: 98.6 F. Pain level now 6/10. --10:09 12/13/20 [place] Amiigo, [employer] Tech1 10:47 12/13/20. Condition at departure: improved and stable. Discharge instructions provided and reviewed with the patient. Patient verbalized understanding. Written instructions provided in Sammarinese. The patient was discharged by the physician. He was discharged home and accompanied by family. He left ambulatory and via private vehicle. Family member driving. --10:49 12/13/20 Ming Wilcox RN.Locked/Released at 12/13/2020 10:50 by Ming Wilcox RN Name Value Range Interpretation Code Description Data Dayna rce(s) Supporting Document(s) ID Date Data Source [id number] 12/13/2020 07:59:00 AM EDT [facility] 1 Clinical Report - Physicians/Mid Levels [facility] Emergency Department [address] [place] [address] Phone #: ext- [phone] 12/13/2020 07:56 Patient: TERESA WICK [facility]#: [id number] Sex: M : 1940 Age: 80y Time [...] (Solution 0.004 %) 1 drop, last dose 318012 4259. Vitamin D Oral 86053 units, every two weeks. Aspirin EC Oral (Tablet Delayed Release 81 mg) 1 tablet, daily, last dose 573653 6889. Atenolol Oral (Tablet 50 mg) 1 tablet, 2x a day, last dose 128815 8649. Esomeprazole Magnesium Oral (Capsule Delayed Release 40 mg) 1 capsule, daily, last dose 566019 0922. Fenofibrate Oral (Tablet 48 mg) 1 tablet , bedtime, last dose 253830 3221. Hydrochlorothiazide Oral (Tablet 25 mg) 1 tablet, daily, last dose 572618 3764. Losartan Potassium Oral (Tablet 50 mg) 1 tablet, daily, last dose 402062 2758. Potassium Chloride ER Oral (Tablet Extended Release 20 meq) 1 tablet, bedtime, last dose [id number] 2 Clinical Report - Physicians/Mid Levels [facility] Emergency Department [address] [place] [address] Phone #: ext- [phone] 12/13/2020 07:56 Patient: [...] PROCEDURAL CONTROL VALID ){ KIT LOT # [id number] ){ KIT EXP DATE 03.20.22 )The Strep [...] Throat 3 Clinical Report - Physicians/Mid Levels [facility] Emergency Department [address] [place] [address] Phone #: ext- [phone] 12/13/2020 07:56 Patient: [...] drop, Last: 5070226. Vitamin D Oral : 52825 units every two weeks. Follow-up: Follow up with your healthcare provider Tuesday. Reason for referral: evaluation. Summary of care provided to patient via paper. Blood pressure screening was not performed during this visit because the patient has an active diagnosis of hypertension. The patient should follow up with a primary care provider for blood pressure management. 4 Clinical Report - Physicians/Mid Levels [facility] Emergency Department [address] [place] [id number] Phone #: [phone] 12/13/2020 07:56 Patient: TERESA WICK Sex: M : 1940 Age: 80y(Electronically signed by Rodriguez Fischer 12/13/2020 13:44) Name Value Range Interpretation Code Description Data Dayna rce(s) Supporting Document(s) ID Date Data Source [id number] 12/13/2020 08:10:00 AM EDT [facility] ([facility]) Name Value Range Interpretation Code Description Data Dayna rce(s) Supporting Document(s) Reported Physicians See Note [facility]: Reported Physicians:Ordering: RODRIGUEZ MITCHELL CAttending: RODRIGUEZ FISCHERConsulting: AMY, JOCELYNCopy To: Myranda FISCHER To: Zee Valdezyn ID Date Data Source [id number] 12/13/2020 08:10:00 AM EDT [facility] ([facility]) Name Value Range Interpretation Code Description Data Dayna rce(s) Supporting Document(s) CULTURE UPPER RESPIRATORY See Note CULTURE UP PER RESPIRATORY [facility] ([facility]) Note: _CULTURE UPPER RESPIRATORY_ $ [id number]$$[id number]$$[id number]$$[id number]$$[id number]$$[id number]$$[id number] DATE/TIME: 12/15/2020 13:05Culture: CULTURE UPPER RESPIRATORY Status: FinalUpper Respiratory Culture: [id number] respiratory floraP1 Test performed by: [facility] #: [id number] [address] [place] [address] [id number] [facility] [id number] Director : Kermit Rodriguez MD NPI #:Cable Testers Helper : [email or web address] REF ID Date Data Source [id number] 12/13/2020 08:10:00 AM EDT [facility] [place] ([facility]) Name Value Range Interpretation Code Description Data Dayna rce(s) Supporting Document(s) Reported Physicians See Note [facility] Note: Reported Physicians:Ordering: RODRIGUEZ MITCHELL CAttending: RODRIGUEZ FISCHERConsulting: AMY, JOCELYNCopy To: Myranda FISCHER To: Myranda FISCHER To: Amy Aleyda ID Date Data Source [id number] 12/13/2020 08:10:00 AM EDT [place] ([facility] Name Value Range Interpretation Code Description Data Dayna rce(s) Supporting Document(s) RAPID STREP NEGATIVE RAPID STREP [facility] ([facility]) Note: Responsible Observer: (TAD) RAPID STREP REENTER NEGATIVE RAPID STREP REEN TER [facility] ([facility]) Note: { PROCEDURAL CONTROL VALID ){ KIT LOT # [id number] ){ KIT EXP DATE 03.20.22 )The Strep [...] treatment.Responsible Observer: (TAD) ID Date Data Source [id number] 12/16/2020 06:29:00 AM [facility] Value Range Interpretation Code Description Data Dayna rce(s) Supporting Document(s) CULTURE UPPER RESPIRATORY [facility] _CULTURE UPPER RESPIRATORY_$$[id number]$$[id number]$$[id number]$$[id number]$$[id number]$$[id number]$$[id number] DATE/TIME: 12/15/2020 13:05Culture: CULTURE UPPER RESPIRATORY Status: FinalUpper Respiratory Culture: [id number] respiratory floraP1 Test performed by: [facility] #: [id number] [address] [place] [address] [id number] [facility] [id number] Director : Kermit Rodriguez MD NPI #:Cable Testers Helper : [email or web address] REF ID Date Data Source [id number] 12/13/2020 08:48:00 AM [facility] Value Range Interpretation Code Description Data Dayna rce(s) Supporting Document(s) RAPID STREP NEGATIVE NORMAL: NEGATIVE [facility] RAPID STREP REENTER NEGATIVE NORMAL: NEGATIVE [facility] { PROCEDURAL CONTROL VALID ){ KIT LOT # [id number] ){ KIT EXP DATE 03.20.22 )The Strep [...] basis for treatment. ID Date Data Source [id number] 11/13/2020 12:02:00 PM EDT [place] ([facility]) Name Value Range Interpretation Code Description Data Dayna rce(s) Supporting Document(s) Reported Physicians See Note Reported [facility] ([facility]) Note: Reported Physicians:Ordering: SOHAIL RAMAN [id number] Antonio V.Attending: JEFFERY SANDERSONConsulting: Ozzy Garcia Jrmitting: Long MISHRA To: Marco SANDERSON To: Thierry Valdez To: Sabine Garcia Jr To: REHAN MISHRA ID Date Data Source [id number] 11/13/2020 12:02:00 PM EDT [place] ([facility]) Name Value Range Interpretation Code Description Data Dayna rce(s) Supporting Document(s) BEDSIDE GLUCOSE 117 MG/DL Above high normal BEDSIDE GLUCO SE [facility] ([facility]) ID Date Data Source [id number] 11/13/2020 08:07:00 AM EDT [place] ([facility]) Name Value Range Interpretation Code Description Data Dayna rce(s) Supporting Document(s) Reported Physicians See Note Reported [facility] ([facility]) Note: Reported Physicians:Ordering: SOHAIL RAMAN [id number] Antonio V.Attending: JEFFERY SANDERSONConsulting: Nydia Garcia JroAdmitting: REHAN MISHRACopdonovan To: JEFFERY SANDERSONCopdonovan To: Zee ValdezynCopy To: Sabine Garcia Jr To: REHAN MISHRA ID Date Data Source [id number] 11/13/2020 08:07:00 AM EDT [facility] ([facility]) Name Value Range Interpretation Code Description Data Dayna rce(s) Supporting Document(s) BEDSIDE GLUCOSE 118 MG/DL Above high normal BEDSIDE GLUCO SE [facility] ([facility]) ID Date Data Source [id number] 11/12/2020 08:19:00 PM EDT [facility] ([facility]) Name Value Range Interpretation Code Description Data Dayna rce(s) Supporting Document(s) Reported Physicians See Note Reported [facility] ([facility]) Note: Reported Physicians:Ordering: SOHAIL RAMAN [id number] Antonio V.Attending: JEFFERY SANDERSONConsulting: Ozzy Garcia Jrmitting: Long MISHRA To: Marco SANDERSON To: Zee ValdezynCopy To: Sabine Garcia Jr To: REHAN MISHRA ID Date Data Source [id number] 11/12/2020 08:19:00 PM EDT [place] ([facility]) Name Value Range Interpretation Code Description Data Dayna rce(s) Supporting Document(s) BEDSIDE GLUCOSE 91 MG/DL Normal BEDSIDE GLUCOSE [facility] ([facility]) ID Date Data Source [id number] 11/12/2020 04:35:00 PM EDT [facility] ([facility]) Name Value Range Interpretation Code Description Data Dayna rce(s) Supporting Document(s) Reported Physicians See Note [facility] Note: Reported Physicians:Ordering: SOHAIL RAMAN [id number] Antonio V.Attending: JEFFERY SANDERSONConsulting: Nydia Garcia JroAdmitting: REHAN MISHRACopy To: Marco SANDERSON To: Amy, JocelynCopy To: Sabine Garcia Jr To: REHAN MISHRA ID Date Data Source [id number] 11/12/2020 04:35:00 PM EDT [facility] ([facility]) Name Value Range Interpretation Code Description Data Dayna rce(s) Supporting Document(s) BEDSIDE GLUCOSE 180 MG/DL Above high normal BEDSIDE GLUCO SE [facility] ([facility]) Note: RN Notified ID Date Data Source [id number] 11/12/2020 11:23:00 AM EDT [facility] ([facility]) Name Value Range Interpretation Code Description Data Dayna rce(s) Supporting Document(s) Reported Physicians See Note Reported [facility] ([facility]) Note: Reported Physicians:Ordering: SOHAIL [id number] Antonio V.Attending: JEFFERY SANDERSONConsulting: Nydia Garcia JroAdmitting: Long MISHRA To: Marco SANDERSON To: Amy, JocelynCopy To: Sabine Garcia Jr To: REHAN MISHRA ID Date Data Source [id number] 11/12/2020 11:23:00 AM EDT [facility] ([facility]) Name Value Range Interpretation Code Description Data Dayna rce(s) Supporting Document(s) BEDSIDE GLUCOSE 141 MG/DL Above high normal BEDSIDE GLUCO SE [facility] ([facility]) Note: RN Notified ID Date Data Source [id number] 11/12/2020 06:36:00 AM EDT [facility] ([facility]) Name Value Range Interpretation Code Description Data Dayna rce(s) Supporting Document(s) Reported Physicians See Note Reported [facility] ([facility]) Note: Reported Physicians:Ordering: SOHAIL RAMAN [id number] Antonio V.Attending: JEFFERY SANDERSONConsulting: Nydia Garcia JroAdmitting: LYDIA MISHRAITACopy To: JEFFERY SANDERSONCopdonovan To: Amy, JocelynCopy To: Sabine Garcia Jr To: LWANGA, REHAN ID Date Data Source [id number] 11/12/2020 06:36:00 AM EDT [place] ([facility]) Name Value Range Interpretation Code Description Data Dayna rce(s) Supporting Document(s) BEDSIDE GLUCOSE 131 MG/DL Above high normal BEDSIDE GLUCO SE [place] [place] ([facility]) ID Date Data Source [id number] 11/11/2020 11:55:00 PM EDT [facility] ([facility]) Name Value Range Interpretation Code Description Data Dayna rce(s) Supporting Document(s) Reported Physicians See Note Reported [facility] ([facility]) Note: Reported Physicians:Ordering: SOHAIL [id number] Antonio V.Attending: JEFFERY SANDERSONConsulting: Nydia Garcia JroAdmitting: Long MISHRA To: Marco SANDERSON To: Zee ValdezynCopy To: Saibne Garcia Jr To: DANICA REHAN ID Date Data Source [id number] 11/11/2020 11:55:00 PM EDT [place] ([facility]) Name Value Range Interpretation Code Description Data Dayna rce(s) Supporting Document(s) BEDSIDE GLUCOSE 113 MG/DL Above high normal BEDSIDE GLUCO SE [facility] ([facility]) ID Date Data Source [id number] 11/11/2020 09:45:00 PM EDT [place] ([facility]) Name Value Range Interpretation Code Description Data Dayna rce(s) Supporting Document(s) Reported Physicians See Note Reported [facility] ([facility]) Note: Reported Physicians:Ordering: SOHAIL RAMAN [id number] Antonio V.Attending: JEFFERY SANDERSONConsulting: Nydia Garcia JroAdmitting: LYDIA MISHRAITACopy To: Marco SANDERSON To: Dorie ValdezcelynCopy To: Nydia Garcia JroCopy To: LWANGA, REHAN ID Date Data Source [id number] 11/11/2020 09:45:00 PM EDT [facility] ([facility]) Name Value Range Interpretation Code Description Data Dayna rce(s) Supporting Document(s) BEDSIDE GLUCOSE 114 MG/DL Above high normal BEDSIDE GLUCO SE [facility] ([facility]) ID Date Data Source [id number] 11/11/2020 05:34:00 PM EDT [facility] ([facility]) Name Value Range Interpretation Code Description Data Dayna rce(s) Supporting Document(s) Reported Physicians See Note Reported [facility] ([facility]) Note: Reported Physicians:Ordering: SOHAIL RAMAN [id number] Antonio V.Attending: JEFFERY SANDERSONConsulting: Nydia Garcia JroAdmitting: Long MISHRA To: Marco SANDERSON To: Amy, DoriecelynCopy To: Sabine Garcia Jr To: REHAN MISHRA ID Date Data Source [id number] 11/11/2020 05:34:00 PM EDT [facility] ([facility]) Name Value Range Interpretation Code Description Data Dayna rce(s) Supporting Document(s) BEDSIDE GLUCOSE 119 MG/DL Above high normal BEDSIDE GLUCO SE [facility] [place] ([facility]) ID Date Data Source [id number] 11/11/2020 12:10:00 PM EDT [facility] ([facility]) Name Value Range Interpretation Code Description Data Dayna rce(s) Supporting Document(s) Reported Physicians See Note Reported [facility] ([facility]) Note: Reported Physicians:Ordering: SOHAIL RAMAN [id number] Antonio V.Attending: JEFFERY SANDERSONConsulting: Nydia Garcia JroAdmitting: Long MISHRA To: Marco SANDERSON To: Amy, JocelynCopy To: Sabine Garcia Jr To: REHAN MISHRA ID Date Data Source [id number] 11/11/2020 12:10:00 PM EDT [facility] ([facility]) Name Value Range Interpretation Code Description Data Dayna rce(s) Supporting Document(s) BEDSIDE GLUCOSE 132 MG/DL Above high normal BEDSIDE GLUCO SE [place] [place] ([facility]) ID Date Data Source [id number] 11/11/2020 05:53:00 AM EDT [place] ([facility]) Name Value Range Interpretation Code Description Data Dayna rce(s) Supporting Document(s) Reported Physicians See Note Reported Physici ans [place] ([facility]) Note: Reported Physicians:Ordering: RO PERALTA [id number], REHAN MDAttending: JEFFERY SANDERSONConsulting: Ozzy Garcia Jrmitting: Long MISHRA To: JEFFERY SANDERSONCopdonovan To: REHAN MISHRACopdonovan To: Zee ValdezynCopdonovan To: Nils Garcia Jr ID Date Data Source [id number] 11/11/2020 05:53:00 AM EDT [place] ([facility]) Name Value Range Interpretation Code Description Data Dayna rce(s) Supporting Document(s) GLUCOSE, FASTING 131 MG/DL Above high normal GLUCOSE, FAS TING [facility] ([facility]) BLOOD UREA NITROGEN 8 MG/DL Significant change down BLO OD UREA NITROGEN [facility] [facility] ([facility]) CREATININE FOR GFR 1.01 MG/DL Normal CREATININE FOR GF R [place] ([facility]) GLOMERULAR FILTRATION RATE > 60.0 Normal GLOMERULA R FILTRATION RATE [facility] ([facility]) Note: Units are mL/min/1.73 m2 Chroni c Kidney Disease Staging per NKF: Stage I & II GFR >=60 Normal to Mildly Decreased Stage III GFR 30- 59 Moderately Decreased Stage IV GFR 15-29 Severely Decreased Stage V GFR <15 Very Little GFR Left ESRD GFR <15 on [employer] SODIUM LEVEL 142 MEQ/L Normal SODIUM LEVEL [facility]) POTASSIUM SERUM 3.8 MEQ/L Normal POTASSIUM SERUM [facility] ([facility]) CARBON DIOXIDE LEVEL 28 MEQ/L Normal CARBON DIOXIDE LEVEL [facility]) CHLORIDE LEVEL 109 MEQ/L Above high normal CHLORIDE LEVEL [facility]) Anion gap in Body fluid 5 MEQ/L Below low normal ANION GAP [facility]) CALCIUM LEVEL 7.9 MG/DL Below low normal [facility] ID Date Data Source [id number] 11/11/2020 05:53:00 AM EDT [place] ([facility]) Name Value Range Interpretation Code Description Data Dayna rce(s) Supporting Document(s) Reported Physicians See Note Reported Physici ans [facility]) Note: Reported Physicians:Ordering: RO PERALTA [id number], REHAN MDAttending: JEFFERY SANDERSONConsulting: Ozzy Garcia Jrmitting: Long MISHRA To: Marco SANDERSON To: REHAN MISHRACopdonovan To: Zee ValdezynCopdonovan To: Nils Garcia Jr ID Date Data Source [id number] 11/11/2020 05:53:00 AM EDT [place] ([facility]) Name Value Range Interpretation Code Description Data Dayna rce(s) Supporting Document(s) WHITE BLOOD COUNT 4.4 3/uL Normal WHITE BLOOD COUNT [facility]) RED BLOOD COUNT 4.07 6/uL Below low normal RED BLOOD COUN T [facility]) Hemoglobin [Mass/volume] in Mixed venous blood by Oximetry 12.2 g/dl Below low normal HEMOGLOBIN [facility]) Hematocrit [Pure volume fraction] of Blood by Automated count 35 .4 % Below low normal HEMATOCRIT [facility]) MEAN CORPUSCULAR VOLUME 87.0 fl Normal MEAN CORPUSC ULAR VOLUME [facility]) MEAN CORPUSCULAR HGB CONC 34.5 g/dl Normal MEAN CORPU SCULAR HGB CONC [facility]) MEAN CORPUSCULAR HEMOGLOBIN 30.0 pg Normal MEAN COR PUSCULAR HEMOGLOBIN [facility]) RED CELL DISTRIBUTION WIDTH 13.2 % Normal RED CELL DISTRIBUTION WIDTH [facility]) PLATELET COUNT, AUTOMATED 145 3/uL Below low normal PLAT ELET COUNT, AUTOMATED [facility] [facility] ([facility]) NUCLEATED RED BLOOD CELL % 0.0 % Normal NUCLEATED RED BLOOD CELL % [facility] [place] ([facility]) ID Date Data Source [id number] 11/11/2020 05:48:00 AM EDT [place] ([facility]) Name Value Range Interpretation Code Description Data Dayna rce(s) Supporting Document(s) Reported Physicians See Note Reported [facility] ([facility]) Note: Reported Physicians:Ordering: SOHAIL RAMAN [id number] V.Attending: JEFFERY SANDERSONConsulting: Nydia Garcia JroAdmitting: Long MISHRA To: Marco SANDERSON To: Aleyda ValdezCopdonovan To: Sabine Garcia Jr To: REHAN MISHRA ID Date Data Source [id number] 11/11/2020 05:48:00 AM EDT [place] ([facility]) Name Value Range Interpretation Code Description Data Dayna rce(s) Supporting Document(s) BEDSIDE GLUCOSE 124 MG/DL Above high normal BEDSIDE GLUCO SE [facility]) ID Date Data Source [id number] 11/10/2020 11:46:00 PM EDT [place] ([facility]) Name Value Range Interpretation Code Description Data Dayna rce(s) Supporting Document(s) Reported Physicians See Note Reported [facility] ([facility]) Note: Reported Physicians:Ordering: SOHAIL RAMAN [id number] V.Attending: JEFFERY SANDERSONConsulting: Nydia Garcia JroAdmitting: Long MISHRA To: Marco SANDERSON To: Zee ValdezynCopdonovan To: Sabine Garcia Jr To: REHAN MISHRA ID Date Data Source [id number] 11/10/2020 11:46:00 PM EDT [place] ([facility]) Name Value Range Interpretation Code Description Data Dayna rce(s) Supporting Document(s) BEDSIDE GLUCOSE 104 MG/DL Normal BEDSIDE GLUCOSE [facility] ([facility]) ID Date Data Source [id number] 11/10/2020 05:17:00 PM EDT [facility] ([facility]) Name Value Range Interpretation Code Description Data Dayna rce(s) Supporting Document(s) Reported Physicians See Note Reported [facility] ([facility]) Note: Reported Physicians:Ordering: SOHAIL RAMAN [id number] V.Attending: JEFFERY SANDERSONConsulting: Nydia Garcia JroAdmitting: Long MISHRA To: Marco SANDERSON To: Zee ValdezynCopdonovan To: Nydia Garcia JroCopy To: REHAN MISHRA ID Date Data Source [id number] 11/10/2020 05:17:00 PM EDT [facility] ([facility]) Name Value Range Interpretation Code Description Data Dayna rce(s) Supporting Document(s) BEDSIDE GLUCOSE 139 MG/DL Above high normal BEDSIDE GLUCO SE [facility] ([facility]) ID Date Data Source [id number] 11/10/2020 11:58:00 AM EDT [facility] ([facility]) Name Value Range Interpretation Code Description Data Dayna rce(s) Supporting Document(s) Reported Physicians See Note Reported [facility] ([facility]) Note: Reported Physicians:Ordering: SOHAIL RAMAN [id number] Antonio V.Attending: JEFFERY SANDERSONConsulting: David GarciaAdmitting: Long MISHRA To: Marco SANDERSON To: Zee ValdezynCopdonovan To: David GarciaCopy To: REHAN MISHRA ID Date Data Source [id number] 11/10/2020 11:58:00 AM EDT [facility] ([facility]) Name Value Range Interpretation Code Description Data Dayna rce(s) Supporting Document(s) BEDSIDE GLUCOSE 170 MG/DL Above high normal BEDSIDE GLUCO SE [facility] ([facility]) ID Date Data Source [id number] [facility] Name Value Range Interpretation Code Description Data Dayna rce(s) Supporting Document(s) Reported Physicians See Note Reported [facility] ([facility]) Note: Reported Physicians:Ordering: RO PERALTA [id number], REHAN MDAttending: LWANGA, ANITAConsulting: Jose, EdwardAdmitting: LWANGA, ANITACopy To: LWANGA, ANITACopy To: Amy, JocelynCopy To: FLINT, DAVIDCopy To: David Garcia ID Date Data Source [id number] 11/10/2020 [facility] Name Value Range Interpretation Code Description Data Dayna rce(s) Supporting Document(s) Hemoglobin A1c in Blood 6.7 % Normal HEMOGLOBIN A [address] [place] [address] ([facility]) Note: REFERENCE RANGES: <=5.6% NOR MAL 5.7-6.4% SUGGESTS IMPAIRED GLUCOSE METABOLISM/PREDIABETIC >= 6.5% ABNORMAL Glucose mean value [Moles/volume] in Blood Estimated f rom glycated hemoglobin 146 MG/DL Above high normal ESTIMATED AVERAGE GLUCOSE [facility]) ID Date Data Source [id number] 11/10/2020 [facility]:45[facility] Name Value Range Interpretation Code Description Data Dayna rce(s) Supporting Document(s) Reported Physicians See Note Reported [facility] ([facility]) Note: Reported Physicians:Ordering: RO PERALTA [id number], REHAN MDAttending: LWANGA, ANITAConsulting: Jose, EdwardAdmitting: LWANGA, ANITACopy To: LWANGA, ANITACopy To: Amy, JocelynCopy To: David Garcia ID Date Data Source [id number] 11/10/2020 [facility]45[facility] Name Value Range Interpretation Code Description Data Dayna rce(s) Supporting Document(s) BEDSIDE GLUCOSE 171 MG/DL Above high normal BEDSIDE GLUCO SE [facility]) ID Date Data Source [id number] 11/10/2020 01:41:00 AM EDT [place] ([facility]) Name Value Range Interpretation Code Description Data Dayna rce(s) Supporting Document(s) Reported Physicians See Note Reported Physici ans [facility]) Note: Reported Physicians:Ordering: RO PERALTA [id number], REHAN MDAttending: DANICA ANITAConsulting: David GarciaAdmitting: LWANGA, ANITACopy To: DANICA ANITACopy To: Zee ValdezynCopy To: TERE DAVIDCopy To: David Garcia ID Date Data Source [id number] 11/10/2020 01:41:00 AM EDT [place] ([facility]) Name Value Range Interpretation Code Description Data Dayna rce(s) Supporting Document(s) WHITE BLOOD COUNT 7.1 3/uL Normal WHITE BLOOD COUNT [facility]) RED BLOOD COUNT 4.43 6/uL Normal [facility] B[facility] Hemoglobin [Mass/volume] in Mixed venous blood by Oximetry 13.2 g/dl Below low normal HEMOGLOBIN [facility]) MEAN CORPUSCULAR VOLUME 85.1 fl Normal MEAN CORPUSC ULAR VOLUME [facility]) Hematocrit [Pure volume fraction] of Blood by Automated count 37 .7 % Below low normal HEMATOCRIT [facility]) MEAN CORPUSCULAR HGB CONC 35.0 g/dl Normal MEAN CORPU SCULAR HGB CONC [facility]) MEAN CORPUSCULAR HEMOGLOBIN 29.8 pg Normal MEAN COR PUSCULAR HEMOGLOBIN [facility]) PLATELET COUNT, AUTOMATED 155 3/uL Normal PLATELET C OUNT, AUTOMATED [facility]) RED CELL DISTRIBUTION WIDTH 13.0 % Normal RED CELL DISTRIBUTION WIDTH [facility]) NUCLEATED RED BLOOD CELL % 0.0 % Normal NUCLEATED RED BLOOD CELL % [facility]) ID Date Data Source [id number] 11/10/2020 01:41:00 AM EDT [place] ([facility]) Name Value Range Interpretation Code Description Data Dayna rce(s) Supporting Document(s) Reported Physicians See Note Reported [facility]ici [facility] [place] ([facility]) Note: Reported Physicians:Ordering: RO PERALTA [id number], REHAN MDAttending: DANICA ANITAConsulting: David GarciaAdmitting: LWANGA, ANITACopy To: LWANGA, ANITACopy To: Amy JocelynCopy To: FLINT, DAVIDCopy To: David Garcia ID Date Data Source [id number] 11/10/2020 01:41:00 AM EDT [place] ([facility]) Name Value Range Interpretation Code Description Data Dayna rce(s) Supporting Document(s) GLUCOSE, FASTING 164 MG/DL Above high normal GLUCOSE, FAS TING [facility] ([facility]) BLOOD UREA NITROGEN 18 MG/DL Normal BLOOD UREA NITRO GEN [facility] ([facility]) GLOMERULAR FILTRATION RATE > 60.0 Normal GLOMERULA R FILTRATION RATE [facility] ([facility]) Note: Units are mL/min/1.73 m2 Chroni c Kidney Disease Staging per NKF: Stage I & II GFR >=60 Normal to Mildly Decreased Stage III GFR 30- 59 Moderately Decreased Stage IV GFR 15-29 Severely Decreased Stage V GFR <15 Very Little GFR Left ESRD GFR <15 on [employer] CREATININE FOR GFR 1.18 MG/DL Normal CREATININE FOR GF R [place] ([facility]) SODIUM LEVEL 140 MEQ/L Normal SODIUM LEVEL [facility]) POTASSIUM SERUM 3.7 MEQ/L Normal [facility]UM [facility] CARBON DIOXIDE LEVEL 27 MEQ/L Normal CARBON DIOXIDE LEVEL [facility]) CHLORIDE LEVEL 105 MEQ/L Normal CHLORIDE LEVEL [facility]) CALCIUM LEVEL 8.4 MG/DL Below low normal CALCIUM LEVEL GR [facility] [facility] Anion gap in Body fluid 8 MEQ/L Normal ANION GAP G [facility]) ID Date Data Source [id number] 11/10/2020 01:40:00 AM EDT [facility] ([facility]) Name Value Range Interpretation Code Description Data Dayna rce(s) Supporting Document(s) Reported Physicians See Note Reported [facility] ([facility]) Note: Reported Physicians:Ordering: RO PERALTA [id number], REHNA MDAttending: REHAN MISHRAConsulting: Jose EdwardAdmitting: LWANGA, ANITACopy To: REJIANGA, ANITACopy To: Zee ValdezynCopy To: David Garcia ID Date Data Source [id number] 11/10/2020 01:40:00 AM EDT [facility] ([facility]) Name Value Range Interpretation Code Description Data Dayna rce(s) Supporting Document(s) BEDSIDE GLUCOSE 165 MG/DL Above high normal BEDSIDE GLUCO SE [place] ([facility]) ID Date Data Source [id number] 11/09/2020 11:47:00 PM EDT [facility] ([facility]) Name Value Range Interpretation Code Description Data Dayna rce(s) Supporting Document(s) Reported Physicians See Note Reported [facility] ([facility]) Note: Reported Physicians:Ordering: BIANKA Montez [id number], JOAO SelbyAttending: REHAN MISHRAConsulting: Jose EdwardAdmitting: LWANGA, ANITACopy To: LWANGA, ANITACopy To: Shade CARRANZA To: Aleyda Valdez ID Date Data Source [id number] 11/09/2020 11:47:00 PM EDT [facility] ([facility]) Name Value Range Interpretation Code Description Data Dayna rce(s) Supporting Document(s) INFLUENZA A AMPLIFICATION NEGATIVE Normal INFLUENZA A AMPLIFICATION [place] ([facility]) Note: Negative results do not preclude i nfluenza or RSV virus infection and should not be used as the sole basis for treatment or other patient management decisions. INFLUENZA B AMPLIFICATION NEGATIVE Normal INFLUENZA B AMPLIFICATION [facility] ([facility]) Note: Negative results do not preclude i nfluenza or RSV virus infection and should not be used as the sole basis for treatment or other patient management decisions. RSV AMPLIFICATION NEGATIVE Normal RSV AMPLIFICATION [facility] ([facility]) Note: Negative results do not preclude i nfluenza or RSV virus infection and should not be used as the sole basis for treatment or other patient management decisions. SARS COVID-19 AMPLIFICATION NEGATIVE Normal SARS COV ID-19 AMPLIFICATION [place] ([facility]) Note: A false negative result may [...] pathogens. DISCLAIMER: Testing was performed using the [employer] SARS-CoV-2 test. This test was developed and its performance characteristics determined by [employer]. This test has not been FDA cleared [...] or revoked sooner. ID Date Data Source [id number] 11/09/2020 11:47:00 PM EDT [facility] Name Value Range Interpretation Code Description Data Dayna rce(s) Supporting Document(s) SARS coronavirus 2 RNA [Presence] in Res piratory specimen by DANNY with probe detection NEGATIVE [facility] This lab was ordered by [facility] a nd reported by [facility] [place]. ID Date Data Source [id number] 10/09/2020 09:14:00 AM EDT [place] ([facility]) Name Value Range Interpretation Code Description Data Dayna rce(s) Supporting Document(s) Glucose [Mass/volume] in Urine collected for unspecified duratio n 215 Abnormal (applies to non-numeric results) Glucose [place] ([facility]) ID Date Data Source [id number] 10/09/2020 09:13:00 AM EDT [place] ([facility]) Name Value Range Interpretation Code Description Data Dayna rce(s) Supporting Document(s) Hemoglobin A1c/Hemoglobin.total in Blood 6.9 Abnormal (applies to non-numeric results) HbA1C [place] ([facility]) ID Date Data Source [id number] 07/14/2020 09:28:00 AM EDT [place] ([facility]) Name Value Range Interpretation Code Description Data Dayna rce(s) Supporting Document(s) Hemoglobin A1c/Hemoglobin.total in Blood 6.6 Abnormal (applies to non-numeric results) HbA1C [place] ([facility]) ID Date Data Source [id number] 07/14/2020 09:27:00 AM EDT [place] ([facility]) Name Value Range Interpretation Code Description Data Dayna rce(s) Supporting Document(s) Glucose [Mass/volume] in Urine collected for unspecified duratio n 170 Abnormal (applies to non-numeric results) Glucose [place] ([facility]) ID Date Data Source [id number] 03/26/2020 06:17:00 AM EST [place] ([facility]) Name Value Range Interpretation Code Description Data Dayna rce(s) Supporting Document(s) Reported Physicians See Note Reported Physici ans [place] ([facility]) Note: Reported Physicians:Ordering: Kenna CamposAttending: Geri Sánchez To: Kenna SánchezCopdonovan To: Aleyda Valdez ID Date Data Source [id number] 03/26/2020 06:17:00 AM EST [place] ([facility]) Name Value Range Interpretation Code Description Data Dayna rce(s) Supporting Document(s) MALB URINE SIEMENS 44.4 MG/L Normal MALB URINE SIEMEN S [place] ([facility]) CREATININE, URINE 72.6 MG/DL Normal CREATININE, URINE [place] ([facility]) EDE/CREAT RATIO 61.1 MCG/MG Above high normal EDE/CREAT RA NIA [place] ([facility]) Note: THE [employer] STATES THAT MICROALBUMINURIA IS PRESENT IF THE MICROALBUMIN/CREATININE RATIO EXCEEDS 30 MCG/MG. THE THRESHOLD FOR CLINICAL ALBUMINURIA IS REACHED AT 300 MCG/MG. THE CLASSIFICATION OF A PATIENT SHOULD BE BASED UPON AT LEAST 2 OF 3 ABNORMAL RESULTS ON SPECIMENS COLLECTED WITHIN A 3 TO 6 MONTH TIME FRAME. ID Date Data Source [id number] 03/26/2020 06:14:00 AM [facility] ([facility]) Name Value Range Interpretation Code Description Data Dayna rce(s) Supporting Document(s) Reported Physicians See Note Reported Physici ans [place] ([facility]) Note: Reported Physicians:Ordering: Kenna CamposAttending: Eliazar SánchezicaCopy To: Eliazar SánchezicaCopdonovan To: Aleyda Valdez ID Date Data Source [id number] 03/26/2020 06:14:00 AM [facility] ([facility] Name Value Range Interpretation Code Description Data Dayna rce(s) Supporting Document(s) WHITE BLOOD COUNT 6.0 3/uL Normal WHITE BLOOD COUNT [facility]) Hemoglobin [Mass/volume] in Mixed venous blood by Oximetry 14.3 g/d l Normal HEMOGLOBIN [facility]) MEAN CORPUSCULAR VOLUME 87.1 fl Normal MEAN CORPUSC ULAR VOLUME [facility]) Hematocrit [Pure volume fraction] of Blood by Automated count 41 .9 % Below low normal HEMATOCRIT [facility]) RED BLOOD COUNT 4.81 6/uL Normal RED BLOOD COUNT LE[facility]) RED CELL DISTRIBUTION WIDTH 13.2 % Normal RED CELL DISTRIBUTION WIDTH [facility]) MEAN CORPUSCULAR HEMOGLOBIN 29.7 pg Normal MEAN COR PUSCULAR HEMOGLOBIN [facility]) MEAN CORPUSCULAR HGB CONC 34.1 g/dl Normal MEAN CORPU SCULAR HGB CONC [facility]) NUCLEATED RED BLOOD CELL % 0.0 % Normal NUCLEATED RED BLOOD CELL % [facility]) PLATELET COUNT, AUTOMATED 155 3/uL Normal PLATELET C OUNT, AUTOMATED [place] ([facility]) ID Date Data Source [id number] 03/26/2020 06:14:00 AM EST [facility] ([facility]) Name Value Range Interpretation Code Description Data Dayna rce(s) Supporting Document(s) Reported Physicians See Note Reported [facility] ([facility]) Note: Reported Physicians:Ordering: Ralph saraEliazargarimaAttending: Gonzalo, JamaicaCopy To: Gonzalo, JamaicaCopy To: Aleyda Valdez ID Date Data Source [id number] 03/26/2020 06:14:00 AM EST [place] ([facility]) Name Value Range Interpretation Code Description Data Dayna rce(s) Supporting Document(s) TOTAL 25(OH) VITAMIN D 46.0 NG/ML Normal TOTAL 25(OH) VITAMIN D [facility]) ID Date Data Source [id number] 03/26/2020 06:14:00 AM [facility] ([facility]) Name Value Range Interpretation Code Description Data Dayna rce(s) Supporting Document(s) Reported [facility] Note [facility]: Reported Physicians:Ordering: Kenna CamposAttending: Gonzalo, JamaicaCopy To: Gonzalo, JamaicaCopy To: Aleyda Valdez ID Date Data Source [id number] 03/26/2020 06:14:00 AM EST [place] ([facility]) Name Value Range Interpretation Code Description Data Dayna rce(s) Supporting Document(s) TRIGLYCERIDES LEVEL 115 MG/DL Normal TRIGLYCERIDES LE KATHY [facility] [facility] ([facility]) CHOLESTEROL LEVEL 137 MG/DL Normal CHOLESTEROL LEVEL [facility]) NON-HDL-C 104 MG/DL Normal NON-HDL-C [place] ([facility]) LDL CHOLESTEROL 81 MG/DL Normal [facility] HDL CHOLESTEROL 33 MG/DL Below low normal HDL CHOLESTERO L [place] ([facility]) CHOLESTEROL RISK RATIO 4.151 Normal CHOLESTEROL R ISK RATIO [facility]) ID Date Data Source [id number] 03/26/2020 06:14:00 AM EST [place] ([facility]) Name Value Range Interpretation Code Description Data Dayna rce(s) Supporting Document(s) Reported Physicians See Note Reported Physici ans [place] ([facility]) Note: Reported Physicians:Ordering: Kenna CamposAttending: Geri Sánchez To: Geri Sánchez To: Amy, Aleyda ID Date Data Source [id number] 03/26/2020 06:14:00 AM EST [place] ([facility]) Name Value Range Interpretation Code Description Data Dayna rce(s) Supporting Document(s) GLUCOSE, FASTING 131 MG/DL Above high normal GLUCOSE, FAS TING [place] ([facility]) GLOMERULAR FILTRATION RATE 58.2 Normal GLOMERULA R FILTRATION RATE [place] ([facility]) Note: Units are mL/min/1.73 m2 Chroni c Kidney Disease Staging per NKF: Stage I & II GFR >=60 Normal to Mildly Decreased Stage III GFR 30- 59 Moderately Decreased Stage IV GFR 15-29 Severely Decreased Stage V GFR <15 Very Little GFR Left ESRD GFR <15 on [employer] CREATININE FOR GFR 1.27 MG/DL Normal CREATININE FOR GF R [place] ([facility]) BLOOD UREA NITROGEN 19 MG/DL Above high normal BLOOD URE A NITROGEN [place] ([facility]) SODIUM LEVEL 140 MEQ/L Normal SODIUM LEVEL [facility]) POTASSIUM SERUM 3.9 MEQ/L Normal POTASSIUM SERUM [facility]) CHLORIDE LEVEL 105 MEQ/L Normal CHLORIDE LEVEL [facility]) CARBON DIOXIDE LEVEL 29 MEQ/L Normal CARBON DIOXIDE LEVEL [facility]) CALCIUM LEVEL 9.3 MG/DL Normal CALCIUM LEVEL [facility]) Anion gap in Body fluid 6 MEQ/L Below low normal ANION GAP [facility]) ALT/SGPT 35 U/L Normal ALT/SGPT [place] ([facility]) Alkaline phosphatase [Enzymatic activity/volume] in Se rum, Plasma or Blood 44 U/L Below low normal ALKALINE PHOSPHATASE [facility]) AST/SGOT 19 U/L Normal AST/SGOT [facility]) Albumin [Mass/volume] in Blood by Bromocresol purple ( BCP) dye binding method 4.0 GM/DL Normal ALBUMIN [facility]) TOTAL PROTEIN 6.7 GM/DL Normal TOTAL PROTEIN [facility]) BILIRUBIN,TOTAL 0.6 MG/DL Normal BILIRUBIN,TOTAL GREE [facility]) ALBUMIN/GLOBULIN RATIO 1.5 Normal ALBUMIN/GLOBU TOVA RATIO [facility]) ID Date Data Source [id number] 01/01/2020 01:41:00 PM EST [place] ([facility]) Name Value Range Interpretation Code Description Data Dayna rce(s) Supporting Document(s) Glucose [Mass/volume] in Urine collected for unspecified duration 1 30 Normal Glucose [facility]) ID Date Data Source [id number] 01/01/2020 01:40:00 PM EST [place] ([facility]) Name Value Range Interpretation Code Description Data Dayna rce(s) Supporting Document(s) Hemoglobin A1c/Hemoglobin.total in Blood 6.6 Abnormal (applies to non-numeric results) HbA1C [facility]) Procedure Social History No Information Vital Signs ID Date Data Source UNK Name Value Range Interpretation Code Description Data Source(s) Body mass index (BMI) [Ratio] 41.7 kg/m2 41.7 k g/m2 [facility]) Body surface area Derived from formula 2.15 m2 2.15 m2 [facility]) Oxygen saturation in Arterial blood by Pulse oximetry 98 % 98 % [facility]) Inhaled oxygen flow rate 0 L/min 0 L/min [facility]) Inhaled oxygen concentration 21 % 21 % [facility]) Systolic blood pressure 138 mm[Hg] 138 mm[Hg] [facility] Diastolic blood pressure 88 mm[Hg] 88 mm[Hg] [facility]) Heart rate 74 /min 74 /min [place] ([facility]) Respiratory rate 24 /min 24 /min [place] ([facility]) Body temperature 97.6 [degF] 97.6 [degF] [facility]) Body height 64.5 [in_i] 64.5 [in_i] [facility] ([facility]) Body weight 247 [lb_av] 247 [lb_av] [facility] ([facility]) Body mass index (BMI) [Ratio] 43.4 kg/m2 43.4 k g/m2 [place] ([facility]) Body surface area Derived from formula 2.19 m2 2.19 m2 [place] ([facility]) Oxygen saturation in Arterial blood by Pulse oximetry 96 % 96 % [place] ([facility]) Systolic blood pressure 148 mm[Hg] 148 mm[Hg] G [facility] ([facility]) Diastolic blood pressure 74 mm[Hg] 74 mm[Hg] [place] ([facility]) Heart rate 88 /min 88 /min [place] ([facility]) Respiratory rate 20 /min 20 /min [place] ([facility]) Body temperature 98.2 [degF] 98.2 [degF] [facility]) Body height 64.5 [in_i] 64.5 [in_i] [facility] ([facility]) Body weight 257 [lb_av] 257 [lb_av] [facility] ([facility]) Body mass index (BMI) [Ratio] 45.1 kg/m2 45.1 k g/m2 [place] ([facility]) Body surface area Derived from formula 2.22 m2 2.22 m2 [place] ([facility]) Oxygen saturation in Arterial blood by Pulse oximetry 97 % 97 % [place] ([facility]) Systolic blood pressure 138 mm[Hg] 138 mm[Hg] [facility] Diastolic blood pressure 90 mm[Hg] 90 mm[Hg] [place] ([facility]) Heart rate 68 /min 68 /min [place] ([facility]) Respiratory rate 24 /min 24 /min [place] ([facility]) Body temperature 98.2 [degF] 98.2 [degF] [facility] ([facility]) Body height 64.5 [in_i] 64.5 [in_i] [facility] ( [facility]) Body weight 267 [lb_av] 267 [lb_av] [place] ( [facility]) Systolic blood pressure 126 mm[Hg] 126 mm[Hg] [facility] Diastolic blood pressure 76 mm[Hg] 76 mm[Hg] [facility] Heart rate 68 /min 68 /min [facility] Respiratory rate 16 /min 16 /min [facility] Body height 165.1 cm 165.1 cm [facility] Body weight 121.11 kg 121.11 kg [facility] Body mass index (BMI) [Ratio] 44.43 kg/m2 44.43 kg/m2 [facility] Body mass index (BMI) [Ratio] 44.6 kg/m2 44.6 k g/m2 [place] ([facility]) Body surface area Derived from formula 2.21 m2 2.21 m2 [place] ([facility]) Oxygen saturation in Arterial blood by Pulse oximetry 97 % 97 % [place] ([facility]) Inhaled oxygen flow rate 0 L/min 0 L/min [place] ([facility]) Inhaled oxygen concentration 21 % 21 % [place] ([facility]) Systolic blood pressure 134 mm[Hg] 134 mm[Hg] G [place] ([facility]) Diastolic blood pressure 74 mm[Hg] 74 mm[Hg] [place] ([facility]) Heart rate 63 /min 63 /min [facility] Respiratory rate 22 /min 22 /min [place] ([facility]) Body temperature 95.7 [degF] 95.7 [degF] [facility] ([facility]) Body height 64.5 [in_i] 64.5 [in_i] [facility] ( [facility]) Body weight 264 [lb_av] 264 [lb_av] [facility] Systolic blood pressure 132 mm[Hg] 132 mm[Hg] [facility] Diastolic blood pressure 80 mm[Hg] 80 mm[Hg] [facility] Heart rate 64 /min 64 /min [facility] Respiratory rate 16 /min 16 /min [facility] Body height 165.1 cm 165.1 cm [facility] Body weight 118.842 kg 118.842 kg [facility] Body mass index (BMI) [Ratio] 43.60 kg/m2 43.60 kg/m2 [facility] Heart rate 78 /min 78 /min [place] ([facility]) Body mass index (BMI) [Ratio] 44.4 kg/m2 44.4 k g/m2 [place] ([facility]) Body surface area Derived from formula 2.21 m2 2.21 m2 [place] ([facility]) Oxygen saturation in Arterial blood by Pulse oximetry 95 % 95 % [place] ([facility]) Inhaled oxygen flow rate 0 L/min 0 L/min [place] ([facility]) Inhaled oxygen concentration 21 % 21 % [place] ([facility]) Systolic blood pressure 138 mm[Hg] 138 mm[Hg] [facility] [place] ([facility]) Diastolic blood pressure 78 mm[Hg] 78 mm[Hg] [facility] ([facility]) Respiratory rate 22 /min 22 /min [place] ([facility]) Body temperature 96.9 [degF] 96.9 [degF] [facility] ([facility]) Body height 64.5 [in_i] 64.5 [in_i] [facility] Body weight 263 [lb_av] 263 [lb_av] [facility] Treatment Plan of Care Planned Activity Planned Date Details Description Data Source (s) pantoprazole 40 MG Delayed Release Oral Tablet 12/15/2020 12:00:00 AM EDT [place] ([facility]) pantoprazole 40 MG Delayed Release Oral Tablet 12/11/2020 12:00:00 AM EDT [place] ([facility]) Sucralfate 1000 MG Oral Tablet 11/24/2020 12:00:00 AM EDT [place] ([facility]) Amlodipine 5 MG Oral Tablet 11/24/2020 12:00:00 AM EDT [place] ([facility]) pantoprazole 40 MG Delayed Release Oral Tablet 11/18/2020 12:00:00 AM EDT [place] ([facility]) Metoclopramide 10 MG Oral Tablet [Reglan] 11/18/2020 12:00:00 AM ED T [place] ([facility]) Accu-Chek Yi Plus In Vitro Strip 10/23/2020 12:00:00 AM EDT [place] ([facility]) Esomeprazole 40 MG Delayed Release Oral Capsule [Nexiu m] 10/09/2020 12:00:00 AM EDT [place] ([facility]) Accu-Chek Soft Touch Lancets Miscellaneous 10/09/2020 12:00:00 AM E DT [place] ([facility]) SM Aspirin Adult Low Strength 81 MG Oral Tablet Delaye d Release 10/09/2020 12:00:00 AM EDT [place] ([facility]) Atenolol 50 MG Oral Tablet [Tenormin] 10/09/2020 12:00:00 AM EDT [place] ([facility]) Ergocalciferol [id number] UNT Oral Capsule [Drisdol] 10/09/2020 12:00:00 AM EDT [place] ([facility]) Fenofibrate 48 MG Oral Tablet 10/09/2020 12:00:00 AM EDT [place] ([facility]) Hydrochlorothiazide 25 MG Oral Tablet 10/09/2020 12:00:00 AM EDT [place] ([facility]) Klor-Con M20 20 MEQ Oral Tablet Extended Release 10/09/2020 12:00:0 0 AM EDT [place] ([facility]) Losartan Potassium 100 MG Oral Tablet 10/09/2020 12:00:00 AM EDT [place] ([facility]) Metformin hydrochloride 500 MG Oral Tablet 10/09/2020 12:00:00 AM E [facility] ([facility]) Simvastatin 80 MG Oral Tablet 10/09/2020 12:00:00 AM [facility]) Fenofibrate 48 MG Oral Tablet 08/07/2020 12:00:00 AM [facility]) Klor-Con M20 20 MEQ Oral Tablet Extended Release 07/14[facility]2020 [facility] 100 MG Oral Tablet 07/14/2020 12:00:00 AM [facility] ([facility]) Metformin hydrochloride 500 MG Oral Tablet 07/14/2020 12:00:00 AM E [facility]) Esomeprazole 40 MG Delayed Release Oral Capsule [Nexiu m] 07/14/2020 12:00:00 AM [facility]) Simvastatin 80 MG Oral Tablet 07/14/2020 12:00:00 AM [facility]) Atenolol 50 MG Oral Tablet [Tenormin] 07/14/2020 12:00:00 AM [facility]) Ergocalciferol [id number] UNT Oral Capsule [Drisdol] 07/14/2020 12:00:00 AM [facility]) Hydrochlorothiazide 25 MG Oral Tablet 07/14/2020 12:00:00 AM [facility]) Accu-Chek Yi Plus In Vitro Strip 07/14/2020 12:00:00 AM [facility]) Ergocalciferol [id number] UNT Oral Capsule [Drisdol] 07/14/2020 12:00:00 AM [facility]) Accu-Chek Soft Touch Lancets Miscellaneous 07/14/2020 12:00:00 AM E [facility] ([facility]) Fenofibrate 48 MG Oral Tablet 07/14/2020 12:00:00 AM [facility]) SM Aspirin Adult Low Strength 81 MG Oral Tablet Delaye d Release 07/10/2020 12:00:00 AM EDT [place] ([facility]) Ergocalciferol [id number] UNT Oral Capsule [Drisdol] 2020 12:00:00 AM EST [place] ([facility]) Aspirin Adult Low Strength 81 MG Oral Tablet Delayed R elease 2020 12:00:00 AM EST [place] ([facility]) Fenofibrate 48 MG Oral Tablet 04/22/2020 12:00:00 AM EST [place] ([facility]) Hydrochlorothiazide 25 MG Oral Tablet 04/16/2020 12:00:00 AM EST [facility]) Klor-Con M20 20 MEQ Oral Tablet Extended Release 04/16/2020 12:00:0 0 AM EST [place] ([facility]) Losartan Potassium 100 MG Oral Tablet 04/16/2020 12:00:00 AM EST [place] ([facility]) Metformin hydrochloride 500 MG Oral Tablet 04/16/2020 12:00:[address] [place] ([facility]) Esomeprazole 40 MG Delayed Release Oral Capsule [Nexiu m] 04/16/2020 12:00:00 AM EST [place] ([facility]) Simvastatin 80 MG Oral Tablet 04/16/2020 12:00:00 AM EST [place] ([facility]) Atenolol 50 MG Oral Tablet [Tenormin] 04/16/2020 12:00:00 AM EST [place] ([facility]) Fenofibrate 48 MG Oral Tablet [Tricor] 04/16/2020 12:00:00 AM EST [place] ([facility]) Aspirin Adult Low Strength 81 MG Oral Tablet Delayed R elease 04/16/2020 12:00:00 AM EST [place] ([facility]) Ergocalciferol [id number] UNT Oral Capsule [Drisdol] 04/16/2020 12:00:00 AM EST [place] ([facility]) Fenofibrate 48 MG Oral Tablet 01/02/2020 12:00:00 AM EST [facility] Losartan Potassium 100 MG Oral Tablet 01/02/2020 12:00:00 AM [facility] Ergocalciferol [id number] UNT Oral Capsule [Drisdol] 01/01/2020 12:00:00 AM [facility]) Accu-Chek Yi Plus In Vitro Strip 01/01/2020 12:00:00 AM [facility]) Aspirin 81 MG Delayed Release Oral Tablet [Ecotrin] 01/01/20 20 12:00:00 AM [facility]) Hydrochlorothiazide 25 MG Oral Tablet 01/01/2020 12:00:00 AM [facility]) Klor-Con M20 20 MEQ Oral Tablet Extended Release 01/01/2020 12:00:0 0 AM [facility]) Losartan Potassium 100 MG Oral Tablet 01/01/2020 12:00:00 AM [facility]) Metformin hydrochloride 500 MG Oral Tablet 01/01/2020 12:00:[address] [place] ([facility]) Esomeprazole 40 MG Delayed Release Oral Capsule [Nexiu m] 01/01/2020 12:00:00 AM [facility]) Simvastatin 80 MG Oral Tablet 01/01/2020 12:00:00 AM [facility]) Fenofibrate 48 MG Oral Tablet [Tricor] 01/01/2020 12:00:00 AM [facility]) Atenolol 50 MG Oral Tablet [Tenormin] 01/01/2020 12:00:00 AM [facility]) Metformin hydrochloride 500 MG Oral Tablet 11/15/2019 12:00:00 AM E DT [place] ([facility]) Losartan Potassium 100 MG Oral Tablet 10/18/2019 12:00:00 AM EDT [facility]) Accu-Chek Soft Touch Lancets Miscellaneous 10/02/2019 12:00:00 AM E DT [place] ([facility]) Ergocalciferol 44670 UNT Oral Capsule [Drisdol] 10/02/2019 12:00:00 AM EDT [place] ([facility]) Hydrochlorothiazide 25 MG Oral Tablet 10/02/2019 12:00:00 AM EDT [place] ([facility]) Klor-Con M20 20 MEQ Oral Tablet Extended Release 10/02/2019 12:00:0 0 AM EDT [place] ([facility]) Esomeprazole 40 MG Delayed Release Oral Capsule [Nexiu m] 10/02/2019 12:00:00 AM EDT [place] ([facility]) Simvastatin 80 MG Oral Tablet 10/02/2019 12:00:00 AM EDT [place] ([facility]) Atenolol 50 MG Oral Tablet [Tenormin] 10/02/2019 12:00:00 AM EDT [place] ([facility]) Fenofibrate 48 MG Oral Tablet [Tricor] 10/02/2019 12:00:00 AM EDT [place] ([facility]) Accu-Chek Yi Plus In Vitro Strip 09/04/2019 12:00:00 AM EDT [place] ([facility]) Aspirin 81 MG Delayed Release Oral Tablet [Ecotrin] 08/15/19 12:00:00 AM EDT [place] ([facility]) Losartan Potassium 25 MG Oral Tablet [facility] Fenofibrate 67 MG Oral Capsule [facility]
[2021-01-30 10:41] LABS: BASO % 0.4 % (0.0-1.0); EOS # 0.1 10^3/uL (0.0-0.5); EOS % 2.9 % (0.0-3.0); HEMATOCRIT 36.7 % (42.0-52.0); HEMOGLOBIN 12.3 g/dl (13.5-17.5); LYMPH # 0.8 10^3/uL (1.5-5.0); LYMPH % 16.9 % (24.0-44.0); MEAN CORPUSCULAR HEMOGLOBIN 29.1 pg (27.0-33.0); MEAN CORPUSCULAR HGB CONC 33.5 g/dl (32.0-36.5); MEAN CORPUSCULAR VOLUME 86.8 fl (80.0-96.0); MONO # 0.4 10^3/uL (0.0-0.8); MONO % 9.1 % (2.0-8.0); NEUTROPHILS # 3.1 10^3/uL (1.5-8.5); PLATELET COUNT, AUTOMATED 172 10^3/uL (150-450); RED BLOOD COUNT 4.23 10^6/uL (4.30-6.10); WHITE BLOOD COUNT 4.5 10^3/uL (4.0-10.0)
[2021-01-30 10:51] LABS: INR 0.99; PROTHROMBIN TIME 13.5 SECONDS (12.7-14.5)
[2021-01-30 10:52] LABS: PARTIAL THROMBOPLASTIN TIME 29.7 SECONDS (25.9-37.0)
[2021-01-30] MEDS ORDERED: ISOVUE-370 76% 100ML VIAL As Ordered ONE (11:13)
[2021-01-30 11:14] LABS: ALBUMIN 3.5 GM/DL (3.2-5.2); ALT/SGPT 38 U/L (12-78); BILIRUBIN,DIRECT < 0.1 MG/DL (0.0-0.2); BILIRUBIN,TOTAL 0.3 MG/DL (0.2-1.0); FREE T4 0.92 NG/DL (0.76-1.46); LIPASE 294 U/L (73-393); NT-PRO BNP 244 PG/ML (<450); THYROID STIMULATING HORMONE 0.794 uIU/ML (0.358-3.740); TOTAL PROTEIN 6.5 GM/DL (6.4-8.2)
[2021-01-30 11:38] LABS: RSV AMPLIFICATION NEGATIVE (NEGATIVE)
--- NOTE | 2021-01-30 12:27 | REP ---
INDICATION: chest pain. COMPARISON: 12/16/2020. TECHNIQUE: CT angiogram chest performed following the intravenous administration of 100 cc of Isovue 370. Sagittal and coronal reconstruction images are performed. Study is limited due to breathing motion. FINDINGS: Lungs: There is a very small area of acute atelectasis or infiltrate peripherally in the right middle lobe. There are few scattered calcified granulomas bilaterally. Mediastinum: No adenopathy. Pulmonary arteries: No evidence of pulmonary embolism. The peripheral lower lobe pulmonary arteries are not visualized due to breathing motion. Alejandra: No adenopathy. Axilla: No adenopathy. Pleura: No effusion. Heart: Not enlarged. Thoracic aorta: No aneurysm or dissection. Upper abdominal structures: There is a small hiatal hernia. Visualized osseous structures: There are degenerative changes of the spine without compression deformity. IMPRESSION: No CT evidence of pulmonary embolism. The peripheral lower lobe pulmonary arteries could not be visualized due to breathing motion. There is a very small area of acute atelectasis or infiltrate peripherally in the right middle lobe. <Electronically signed by Benedict Posey > 01/30/21 [id number]
[2021-01-30] MEDS ORDERED: PENICILLIN V POTASSIUM 500 MG TAB PO ONE (13:20)
[2021-01-30] MEDS ORDERED: PENI500T PO (15:07)
[2021-01-30 16:00] VITALS: BP 178/80
--- NOTE | 2021-01-30 18:58 | ECGEPIP ---
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
--- NOTE | 2021-01-30 19:01 | ECGEPIP ---
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
== END 2021-01-30 16:12 | disposition home or self-care (01) ==
LOC: EDBD 09:50 → M ED 09:50
DX: J02.0 Streptococcal pharyngitis (principal); R07.9 Chest pain, unspecified; E11.9 Type 2 diabetes mellitus without complications; I10 Essential (primary) hypertension; E78.5 Hyperlipidemia, unspecified; F17.200 Nicotine dependence, unspecified, uncomplicated; Z79.01 Long term (current) use of anticoagulants; Z79.899 Other long term (current) drug therapy
CPT/HCPCS: 36415; 71045; 71275; 80047; 80076; 83690; 83880; 84439; 84443; 84484; 85025; 85610; 85730; 87631; 87880; 93005; 93041; 94760; 99285; Q9967

== ENCOUNTER → 2021-03-13 | Outpatient (REF) | payer OTHER, MEDICAID ==
[~2021-03-13] MED LIST changes: +LOSA100T45 PO; -LOSA100T50 PO; +LOSA50TA28 PO; -LOSA50TA88 PO; +PENI500T PO; +POTA-151 PO; -POTA20TA6 PO
[2021-03-13 11:05] LABS: HEMATOCRIT 39.9 % (42.0-52.0); HEMOGLOBIN 13.3 g/dl (13.5-17.5); MEAN CORPUSCULAR HEMOGLOBIN 27.8 pg (27.0-33.0); MEAN CORPUSCULAR HGB CONC 33.3 g/dl (32.0-36.5); MEAN CORPUSCULAR VOLUME 83.5 fl (80.0-96.0); PLATELET COUNT, AUTOMATED 239 10^3/uL (150-450); RED BLOOD COUNT 4.78 10^6/uL (4.30-6.10); WHITE BLOOD COUNT 7.2 10^3/uL (4.0-10.0)
[2021-03-13 11:40] LABS: ALBUMIN 3.9 GM/DL (3.2-5.2); ALT/SGPT 29 U/L (12-78); BILIRUBIN,TOTAL 0.3 MG/DL (0.2-1.0); BLOOD UREA NITROGEN 20 MG/DL (7-18); CALCIUM LEVEL 9.2 MG/DL (8.8-10.2); CARBON DIOXIDE LEVEL 28 MEQ/L (21-32); CHLORIDE LEVEL 106 MEQ/L (98-107); CHOLESTEROL LEVEL 136 MG/DL (<200); CHOLESTEROL RISK RATIO 3.578 (<5); CREATININE FOR GFR 1.12 MG/DL (0.70-1.30); GLOMERULAR FILTRATION RATE > 60.0 (>35); GLUCOSE, FASTING 170 MG/DL (70-100); HDL CHOLESTEROL 38 MG/DL (>40); LDL CHOLESTEROL 66 MG/DL (<100); NON-HDL-C 98 MG/DL; POTASSIUM SERUM 4.1 MEQ/L (3.5-5.1); SODIUM LEVEL 139 MEQ/L (136-145); TOTAL PROTEIN 6.8 GM/DL (6.4-8.2); TRIGLYCERIDES LEVEL 162 MG/DL (<150)
== END ==
LOC: M SHH 10:53
PROVIDERS: ATTEND Registered Nurse
DX: I10 Essential (primary) hypertension (principal)

== ENCOUNTER 2021-09-08 13:05 | Emergency (ER) | payer OTHER, MEDICAID ==
[~2021-09-08] VITALS: Ht 170.2 cm; Wt 118.2 kg
[2021-09-08 13:42] LABS: BASO % 0.6 % (0.0-1.0); EOS # 0.1 10^3/uL (0.0-0.5); EOS % 1.7 % (0.0-3.0); HEMATOCRIT 39.8 % (42.0-52.0); HEMOGLOBIN 14.1 g/dl (13.5-17.5); LYMPH % 13.7 % (24.0-44.0); MEAN CORPUSCULAR HEMOGLOBIN 29.5 pg (27.0-33.0); MEAN CORPUSCULAR HGB CONC 35.4 g/dl (32.0-36.5); MEAN CORPUSCULAR VOLUME 83.3 fl (80.0-96.0); MONO # 0.6 10^3/uL (0.0-0.8); MONO % 8.9 % (2.0-8.0); NEUTROPHILS # 5.2 10^3/uL (1.5-8.5); PLATELET COUNT, AUTOMATED 168 10^3/uL (150-450); RED BLOOD COUNT 4.78 10^6/uL (4.30-6.10)
[2021-09-08 14:09] LABS: CK-MB VALUE MASS 1.2 NG/ML (<3.6); MB/CK RELATIVE INDEX 2.67 (< OR =4)
[2021-09-08 14:18] LABS: ALT/SGPT 50 U/L (12-78); BILIRUBIN,DIRECT 0.1 MG/DL (0.0-0.2); BILIRUBIN,TOTAL 0.4 MG/DL (0.2-1.0); BLOOD UREA NITROGEN 15 MG/DL (7-18); CALCIUM LEVEL 9.1 MG/DL (8.8-10.2); CARBON DIOXIDE LEVEL 25 MEQ/L (21-32); CHLORIDE LEVEL 104 MEQ/L (98-107); CREATININE FOR GFR 1.08 MG/DL (0.70-1.30); FREE T4 1.01 NG/DL (0.76-1.46); GLOMERULAR FILTRATION RATE > 60.0 (>35); GLUCOSE, FASTING 170 MG/DL (70-100); LIPASE 299 U/L (73-393); NT-PRO BNP 54 PG/ML (<450); POTASSIUM SERUM 3.8 MEQ/L (3.5-5.1); SODIUM LEVEL 137 MEQ/L (136-145); THYROID STIMULATING HORMONE 0.864 uIU/ML (0.358-3.740); TOTAL PROTEIN 6.9 GM/DL (6.4-8.2)
[2021-09-08 15:49] LABS: CK-MB VALUE MASS 1.5 NG/ML (<3.6); MB/CK RELATIVE INDEX 4.29 (< OR =4)
[2021-09-08 16:41] LABS: CK-MB VALUE MASS 1.1 NG/ML (<3.6); MB/CK RELATIVE INDEX 2.44 (< OR =4)
[2021-09-08] MEDS ORDERED: ISOVUE-370 76% 100ML VIAL As Ordered ONE (16:48)
[2021-09-08 18:35] VITALS: BP 179/84
== END 2021-09-08 19:06 | disposition home or self-care (01) ==
LOC: M ED 13:05 → EDBD 13:05 → M ED 19:06
DX: R07.9 Chest pain, unspecified (principal); R91.1 Solitary pulmonary nodule; I10 Essential (primary) hypertension; J44.9 Chronic obstructive pulmonary disease, unspecified; E78.5 Hyperlipidemia, unspecified; I25.2 Old myocardial infarction; M54.50 Low back pain, unspecified; N40.0 Benign prostatic hyperplasia without lower urinary tract symptoms; Z95.5 Presence of coronary angioplasty implant and graft; Z79.899 Other long term (current) drug therapy; Z79.84 Long term (current) use of oral hypoglycemic drugs
CPT/HCPCS: 36415; 71045; 71275; 80048; 80076; 82550; 82553; 83690; 83880; 84439; 84443; 84484; 85025; 93005; 93041; 94760; 99285; Q9967

== ENCOUNTER 2021-10-14 08:20 | Emergency (ER) | payer OTHER, MEDICAID ==
[~2021-10-14] VITALS: Ht 170.2 cm; Wt 118.6 kg
[2021-10-14 10:39] VITALS: BP 161/80
== END 2021-10-14 10:40 | disposition home or self-care (01) ==
LOC: M ED 08:20 → EDBD 08:20 → M ED 10:40
DX: J02.9 Acute pharyngitis, unspecified (principal); E11.9 Type 2 diabetes mellitus without complications; I10 Essential (primary) hypertension; I25.2 Old myocardial infarction; Z95.5 Presence of coronary angioplasty implant and graft; Z79.899 Other long term (current) drug therapy; Z79.84 Long term (current) use of oral hypoglycemic drugs

== ENCOUNTER 2022-03-05 15:31 | Emergency (ER) | payer OTHER, MEDICAID ==
[~2022-03-05] VITALS: Ht 170.2 cm; Wt 120.5 kg
[2022-03-05] MEDS ORDERED: GI COCKTAIL 50ML BTL(HYOSCYAMINE/MAALOX/LIDOCAINE VISCOUS)(1:3:1) PO ONE (15:45)
[2022-03-05 16:33] LABS: BASO % 0.6 % (0.0-1.0); EOS # 0.2 10^3/uL (0.0-0.5); EOS % 3.1 % (0.0-3.0); HEMATOCRIT 35.5 % (42.0-52.0); HEMOGLOBIN 12.1 g/dl (13.5-17.5); LYMPH % 19.9 % (24.0-44.0); MEAN CORPUSCULAR HEMOGLOBIN 29.4 pg (27.0-33.0); MEAN CORPUSCULAR HGB CONC 34.1 g/dl (32.0-36.5); MEAN CORPUSCULAR VOLUME 86.2 fl (80.0-96.0); MONO # 0.5 10^3/uL (0.0-0.8); NEUTROPHILS # 3.5 10^3/uL (1.5-8.5); NEUTROPHILS % 66.6 % (36.0-66.0); PLATELET COUNT, AUTOMATED 214 10^3/uL (150-450); RED BLOOD COUNT 4.12 10^6/uL (4.30-6.10); WHITE BLOOD COUNT 5.2 10^3/uL (4.0-10.0)
[2022-03-05 16:57] LABS: CK-MB VALUE MASS < 1.0 NG/ML (<3.6); LIPASE 73 U/L (12-53)
[2022-03-05 16:59] LABS: ALBUMIN 3.8 G/DL (3.2-5.2); ALKALINE PHOSPHATASE 50 U/L (46-116); ALT/SGPT 34 U/L (7.0-40); AST/SGOT 27 U/L (<34); BILIRUBIN,DIRECT 0.1 MG/DL (<0.4); BILIRUBIN,TOTAL 0.3 MG/DL (0.3-1.2); BLOOD UREA NITROGEN 17 MG/DL (9-23); CALCIUM LEVEL 8.4 MG/DL (8.3-10.6); CARBON DIOXIDE LEVEL 23 MMOL/L (20-31); CHLORIDE LEVEL 105 MMOL/L (98-107); CREATININE FOR GFR 0.89 MG/DL (0.70-1.30); GLOMERULAR FILTRATION RATE > 60.0 (>35); GLUCOSE, FASTING 158 MG/DL (74-106); POTASSIUM SERUM 3.8 MMOL/L (3.5-5.1); SODIUM LEVEL 139 MMOL/L (136-145); TOTAL PROTEIN 6.1 G/DL (5.7-8.2)
[2022-03-05 17:01] LABS: THYROID STIMULATING HORMONE 1.596 uIU/ML (0.55-4.78)
[2022-03-05 17:03] LABS: CPK CREATINE PHOSPHOKINASE 55 U/L (46-171); MB/CK RELATIVE INDEX 1.81 (< OR =4)
[2022-03-05 18:03] LABS: CK-MB VALUE MASS < 1.0 NG/ML (<3.6)
[2022-03-05 18:08] LABS: CPK CREATINE PHOSPHOKINASE 54 U/L (46-171); MB/CK RELATIVE INDEX 1.85 (< OR =4)
[2022-03-05 20:11] LABS: CK-MB VALUE MASS < 1.0 NG/ML (<3.6)
[2022-03-05 20:12] LABS: CPK CREATINE PHOSPHOKINASE 58 U/L (46-171); MB/CK RELATIVE INDEX 1.72 (< OR =4)
[2022-03-05] MEDS ORDERED: OMEP40CA4 PO (20:25)
[2022-03-05 21:07] VITALS: BP 143/70
== END 2022-03-05 21:09 | disposition home or self-care (01) ==
LOC: M ED 16:30
DX: R10.13 Epigastric pain (principal); R07.89 Other chest pain; I25.10 Atherosclerotic heart disease of native coronary artery without angina pectoris; E11.9 Type 2 diabetes mellitus without complications; I10 Essential (primary) hypertension; E78.5 Hyperlipidemia, unspecified; J44.9 Chronic obstructive pulmonary disease, unspecified; Z95.5 Presence of coronary angioplasty implant and graft; Z85.46 Personal history of malignant neoplasm of prostate; F17.200 Nicotine dependence, unspecified, uncomplicated; Z79.899 Other long term (current) drug therapy

== ENCOUNTER → 2022-05-13 | Outpatient (CLI) | payer OTHER, MEDICAID ==
[~2022-05-13] MED LIST changes: +OMEP40CA4 PO
[2022-05-13 15:20] LABS: CHOLESTEROL LEVEL 251 MG/DL (<200); CHOLESTEROL RISK RATIO 6.89 (<5); HDL CHOLESTEROL 36.4 MG/DL (>40); NON-HDL-C 214.6 MG/DL; PROSTATIC SPECIFIC AG MONITOR 0.04 NG/ML (< 4.00); TRIGLYCERIDES LEVEL 641 MG/DL (<150)
[2022-05-13 15:25] LABS: FREE T4 1.14 NG/DL (0.89-1.76); THYROID STIMULATING HORMONE 1.157 uIU/ML (0.55-4.78)
[2022-05-13 15:32] LABS: CPK CREATINE PHOSPHOKINASE 76 U/L (46-171)
[2022-05-13 15:58] LABS: HEMOGLOBIN A1c 6.7 % (4.0-6.0)
== END ==
LOC: M LAB 13:48
PROVIDERS: ATTEND Registered Nurse
DX: E78.2 Mixed hyperlipidemia (principal)

== ENCOUNTER 2022-09-22 12:43 | Emergency (ER) | payer OTHER, MEDICAID ==
[~2022-09-22] VITALS: Ht 172.7 cm; Wt 68.2 kg
[~2022-09-22 12:43] MED LIST changes: -LOSA100T45 PO; +LOSA100T46 PO
[2022-09-22 12:54] VITALS: TEMP 98
[2022-09-22 13:20] LABS: BASO % 0.5 % (0.0-1.0); EOS # 0.6 10^3/uL (0.0-0.5); EOS % 7.3 % (0.0-3.0); HEMATOCRIT 38.7 % (42.0-52.0); HEMOGLOBIN 13.6 g/dl (13.5-17.5); LYMPH # 1.3 10^3/uL (1.5-5.0); LYMPH % 16.3 % (24.0-44.0); MEAN CORPUSCULAR HEMOGLOBIN 29.9 pg (27.0-33.0); MEAN CORPUSCULAR HGB CONC 35.1 g/dl (32.0-36.5); MEAN CORPUSCULAR VOLUME 85.1 fl (80.0-96.0); MONO # 0.7 10^3/uL (0.0-0.8); MONO % 8.7 % (2.0-8.0); NEUTROPHILS # 5.1 10^3/uL (1.5-8.5); NEUTROPHILS % 66.4 % (36.0-66.0); PLATELET COUNT, AUTOMATED 189 10^3/uL (150-450); RED BLOOD COUNT 4.55 10^6/uL (4.30-6.10); WHITE BLOOD COUNT 7.7 10^3/uL (4.0-10.0)
[2022-09-22 13:45] LABS: INR 0.98; PROTHROMBIN TIME 13.2 SECONDS (12.5-14.5)
[2022-09-22 13:46] LABS: CK-MB VALUE MASS 1.2 NG/ML (<3.6); PARTIAL THROMBOPLASTIN TIME 26.2 SECONDS (24.8-34.2)
[2022-09-22 13:47] LABS: LIPASE 79 U/L (12-53)
[2022-09-22 13:49] LABS: ALBUMIN 4.1 G/DL (3.2-5.2); ALKALINE PHOSPHATASE 42 U/L (46-116); ALT/SGPT 20 U/L (7.0-40); AST/SGOT 17 U/L (<34); BILIRUBIN,DIRECT 0.3 MG/DL (<0.4); BILIRUBIN,TOTAL 0.6 MG/DL (0.3-1.2); BLOOD UREA NITROGEN 19 MG/DL (9-23); CALCIUM LEVEL 9.5 MG/DL (8.3-10.6); CARBON DIOXIDE LEVEL 26 MMOL/L (20-31); CHLORIDE LEVEL 104 MMOL/L (98-107); CREATININE FOR GFR 1.09 MG/DL (0.70-1.30); GLOMERULAR FILTRATION RATE > 60.0 (>35); GLUCOSE, FASTING 149 MG/DL (74-106); POTASSIUM SERUM 4.3 MMOL/L (3.5-5.1); SODIUM LEVEL 139 MMOL/L (136-145); TOTAL PROTEIN 6.7 G/DL (5.7-8.2)
[2022-09-22 13:52] LABS: MB/CK RELATIVE INDEX 2.63 (< OR =4)
[2022-09-22 13:53] LABS: CPK CREATINE PHOSPHOKINASE 78 U/L (46-171); MB/CK RELATIVE INDEX 1.53 (< OR =4)
[2022-09-22 16:03] LABS: CK-MB VALUE MASS < 1.0 NG/ML (<3.6)
[2022-09-22 16:06] LABS: CPK CREATINE PHOSPHOKINASE 74 U/L (46-171); MB/CK RELATIVE INDEX 1.35 (< OR =4)
[2022-09-22 16:38] VITALS: BP 152/59; O2SAT 96
== END 2022-09-22 16:31 | disposition home or self-care (01) ==
LOC: EDBD 12:43 → M ED 12:43
DX: R07.9 Chest pain, unspecified (principal); I10 Essential (primary) hypertension; I25.2 Old myocardial infarction; E11.9 Type 2 diabetes mellitus without complications; E78.5 Hyperlipidemia, unspecified; K21.9 Gastro-esophageal reflux disease without esophagitis; N40.0 Benign prostatic hyperplasia without lower urinary tract symptoms; Z95.5 Presence of coronary angioplasty implant and graft; Z79.899 Other long term (current) drug therapy; Z79.84 Long term (current) use of oral hypoglycemic drugs

== ENCOUNTER 2022-10-02 17:24 | Emergency (ER) | payer OTHER, MEDICAID ==
[2022-10-02] MEDS ORDERED: ASPIRIN 81MG CHEW TABLET PO ONE (18:05)
[2022-10-02] MEDS ORDERED: SUCRALFATE SUSP 1GM/10ML UD PO ONE (18:05)
[2022-10-02] MEDS ORDERED: PANTOPRAZOLE 40MG VIAL IV ONE (18:15)
[2022-10-02] MEDS ORDERED: METOCLOPRAMIDE INJ 10MG/2ML VIAL IV ONE (18:15)
[2022-10-02 18:44] LABS: BASO # 0.1 10^3/uL (0.0-0.2); BASO % 0.7 % (0.0-1.0); EOS # 0.5 10^3/uL (0.0-0.5); HEMOGLOBIN 13.5 g/dl (13.5-17.5); LYMPH # 1.1 10^3/uL (1.5-5.0); LYMPH % 15.1 % (24.0-44.0); MEAN CORPUSCULAR HEMOGLOBIN 30.2 pg (27.0-33.0); MEAN CORPUSCULAR HGB CONC 35.5 g/dl (32.0-36.5); MONO # 0.7 10^3/uL (0.0-0.8); MONO % 9.8 % (2.0-8.0); NEUTROPHILS # 5.1 10^3/uL (1.5-8.5); NEUTROPHILS % 67.6 % (36.0-66.0); PLATELET COUNT, AUTOMATED 201 10^3/uL (150-450); RED BLOOD COUNT 4.47 10^6/uL (4.30-6.10); VENOUS BASE EXCESS -1.9 (-2.0-2.0); VENOUS HCO3 22.5 MMOL/L (23.0-27.0); VENOUS O2 SATURATION 97.2 % (60.0-80.0); VENOUS PARTIAL PRESSURE CO2 37.5 mmHg (38.0-50.0); VENOUS PARTIAL PRESSURE O2 101.1 mmHg (30.0-50.0); VENOUS PH 7.396 UNITS (7.330-7.430); VENOUS STANDARD HCO3 22.9 MMOL/L; VENOUS TOTAL CO2 23.7 MMOL/L (24.0-28.0); WHITE BLOOD COUNT 7.5 10^3/uL (4.0-10.0)
[2022-10-02 19:17] LABS: LIPASE 96 U/L (12-53)
[2022-10-02 19:18] VITALS: TEMP 98.6
[2022-10-02 19:18] LABS: ALBUMIN 3.9 G/DL (3.2-5.2); ALKALINE PHOSPHATASE 42 U/L (46-116); ALT/SGPT 20 U/L (7.0-40); AST/SGOT 12 U/L (<34); BILIRUBIN,DIRECT 0.1 MG/DL (<0.4); BILIRUBIN,TOTAL 0.3 MG/DL (0.3-1.2); BLOOD UREA NITROGEN 20 MG/DL (9-23); CALCIUM LEVEL 9.1 MG/DL (8.3-10.6); CARBON DIOXIDE LEVEL 24 MMOL/L (20-31); CHLORIDE LEVEL 104 MMOL/L (98-107); CK-MB VALUE MASS < 1.0 NG/ML (<3.6); GLOMERULAR FILTRATION RATE > 60.0 (>35); GLUCOSE, FASTING 142 MG/DL (74-106); POTASSIUM SERUM 3.8 MMOL/L (3.5-5.1); SODIUM LEVEL 139 MMOL/L (136-145); TOTAL PROTEIN 6.7 G/DL (5.7-8.2)
[2022-10-02 19:19] LABS: CPK CREATINE PHOSPHOKINASE 67 U/L (46-171); MB/CK RELATIVE INDEX 1.49 (< OR =4)
[2022-10-02 19:35] LABS: OSMOLALITY SERUM 292 MOSM/KG (280-301)
[2022-10-02 20:21] LABS: RSV AMPLIFICATION NEGATIVE (NEGATIVE)
[2022-10-02 20:28] LABS: MB/CK RELATIVE INDEX 1.4 (< OR =4)
[2022-10-02 23:01] VITALS: BP 109/55; O2SAT 97
== END 2022-10-02 23:50 | disposition home or self-care (01) ==
LOC: M ED 17:24 → EDBD 17:24 → M ED 23:50
DX: R07.89 Other chest pain (principal); E11.9 Type 2 diabetes mellitus without complications; I11.9 Hypertensive heart disease without heart failure; I25.10 Atherosclerotic heart disease of native coronary artery without angina pectoris; I25.2 Old myocardial infarction; K21.9 Gastro-esophageal reflux disease without esophagitis; Z95.5 Presence of coronary angioplasty implant and graft; Z87.891 Personal history of nicotine dependence; N40.0 Benign prostatic hyperplasia without lower urinary tract symptoms; Z79.899 Other long term (current) drug therapy; Z79.84 Long term (current) use of oral hypoglycemic drugs
CPT/HCPCS: 70450; 71045; 80048; 80076; 81001; 82140; 82550; 82553; 82803; 83690; 83930; 84443; 84484; 85025; 87040; 87631; 93005; 93041; 94760; 96374; 96375; 99285; C9113; J2765

== ENCOUNTER → 2023-03-31 | Outpatient (CLI) | payer OTHER, MEDICAID ==
[2023-03-31 07:36] LABS: CHOLESTEROL RISK RATIO 5.34 (<5)
== END ==
LOC: M LAB 06:23
PROVIDERS: ATTEND Registered Nurse
DX: E78.2 Mixed hyperlipidemia (principal)

== ENCOUNTER 2023-06-12 10:29 | Emergency (ER) | payer OTHER, MEDICAID ==
[2023-06-12 10:35] VITALS: TEMP 96.8
[2023-06-12] MEDS: GABAPENTIN 300 MG CAP PO ONE (11:15)
[2023-06-12] MEDS: ACETAMINOPHEN 500 MG TAB PO ONE (11:16)
[2023-06-12] MEDS: LIDOCAINE 5% (LIDODERM) PATCH TD ONE (11:17)
[2023-06-12] MEDS ORDERED: LIDO5DIS41 TD (11:27)
[2023-06-12 11:29] VITALS: O2SAT 97
[2023-06-12 11:31] VITALS: BP 146/70
[2023-06-13] MEDS ORDERED: ONDA4TAB6 PO (12:53)
== END 2023-06-12 13:36 | disposition home or self-care (01) ==
LOC: EDBD 10:29 → M ED 10:29
DX: M54.50 Low back pain, unspecified (principal); E11.9 Type 2 diabetes mellitus without complications; I10 Essential (primary) hypertension; I25.119 Atherosclerotic heart disease of native coronary artery with unspecified angina pectoris; Z87.891 Personal history of nicotine dependence; Z79.899 Other long term (current) drug therapy; Z79.84 Long term (current) use of oral hypoglycemic drugs

== ENCOUNTER 2023-06-13 08:51 | Emergency (ER) | payer OTHER, MEDICAID ==
[~2023-06-13] VITALS: Ht 170.2 cm; Wt 120.5 kg
[~2023-06-13 08:51] MED LIST changes: +LIDO5DIS41 TD
[2023-06-13 09:49] LABS: BASO % 0.1 % (0.0-1.0); HEMATOCRIT 42.7 % (42.0-52.0); HEMOGLOBIN 14.9 g/dl (13.5-17.5); LYMPH # 0.4 10^3/uL (1.5-5.0); LYMPH % 5.4 % (24.0-44.0); MEAN CORPUSCULAR HEMOGLOBIN 29.8 pg (27.0-33.0); MEAN CORPUSCULAR HGB CONC 34.9 g/dl (32.0-36.5); MEAN CORPUSCULAR VOLUME 85.4 fl (80.0-96.0); MONO # 0.5 10^3/uL (0.0-0.8); MONO % 6.5 % (2.0-8.0); NEUTROPHILS # 6.2 10^3/uL (1.5-8.5); NEUTROPHILS % 87.6 % (36.0-66.0); PLATELET COUNT, AUTOMATED 138 10^3/uL (150-450)
[2023-06-13 10:01] LABS: ALBUMIN 3.7 G/DL (3.2-5.2); BILIRUBIN,DIRECT 0.3 MG/DL (<0.4); BILIRUBIN,TOTAL 0.8 MG/DL (0.3-1.2); CALCIUM LEVEL 8.7 MG/DL (8.3-10.6); CREATININE FOR GFR 1.49 MG/DL (0.70-1.30); GLOMERULAR FILTRATION RATE 47.9 (>35); POTASSIUM SERUM 4.4 MMOL/L (3.5-5.1); TOTAL PROTEIN 6.8 G/DL (5.7-8.2)
[2023-06-13] MEDS: NS 500 ML IV ONE (10:15)
[2023-06-13] MEDS ORDERED: ONDA4TAB6 PO (12:53)
[2023-06-13 13:00] VITALS: BP 163/72; O2SAT 98
[2023-06-13 13:13] VITALS: TEMP 97.4
== END 2023-06-13 13:20 | disposition home or self-care (01) ==
LOC: EDBD 08:51 → M ED 08:51
DX: R11.2 Nausea with vomiting, unspecified (principal); I25.10 Atherosclerotic heart disease of native coronary artery without angina pectoris; E11.9 Type 2 diabetes mellitus without complications; I10 Essential (primary) hypertension; K21.9 Gastro-esophageal reflux disease without esophagitis; Z86.19 Personal history of other infectious and parasitic diseases; Z95.5 Presence of coronary angioplasty implant and graft; Z87.891 Personal history of nicotine dependence; Z79.84 Long term (current) use of oral hypoglycemic drugs; Z79.899 Other long term (current) drug therapy